=== PATIENT | female | born 1955 | race Caucasian/White ===

== ENCOUNTER 2023-03-07 10:01 | Outpatient (OUT) | payer MEDICARE, SELFPAY ==
--- NOTE | 2023-03-07 | MM_ITS ---
Patient: ANGELITA ADRIAN Exam Date: 03/07/2023 : 1955 Gender:F Ordering : Shaikh Andrzej Allan . Admission #: [id number] Family : Order #: [id number] CLICK HERE TO VIEW EXAM RADIOLOGY REPORT PROCEDURE: MM TOMOSYNTHESIS SCREENING BI COMPARISON: MG MAMM SCREEN 3D ALVA CAD, 07/18/2021. INDICATIONS: Screening Calculator Name NCI Breast Cancer Risk Assessment Tool 5 Year Breast Cancer Risk 1.20% Lifetime Breast Cancer Risk 3.90% Personal Breast Cancer No Personal Ovarian Cancer No Treatments None Family Cancers Grandmother-maternal with breast cancer at age ~63; Aunt-maternal with breast cancer at age ~31; Mother with ovarian cancer at age 27; Grandmother-paternal with colon? cancer at age ~68; Grandfather-paternal with lung cancer at age ~60; Father with lung cancer at age ~60. LOCATION: [facility] BREAST COMPOSITION: Heterogeneously dense,which may obscure small masses. FINDINGS: DIAGNOSTIC CATEGORY 2--BENIGN FINDING. NO CHANGE FROM COMPARISON. Scattered benign-appearing nodules are present. Scattered benign-appearing calcifications are present. Scattered benign-appearing lymph nodes are present. RIGHT BREAST: No significant suspicious finding. LEFT BREAST: No significant suspicious finding. RECOMMENDATIONS: ROUTINE MAMMOGRAM AND CLINICAL EVALUATION IN 12 MONTHS. PLEASE NOTE: A NORMAL MAMMOGRAM DOES NOT EXCLUDE THE POSSIBILITY OF BREAST CANCER. A CLINICALLY SUSPICIOUS PALPABLE LUMP SHOULD BE BIOPSIED. Dictated by: Tre Currie MD on 03/07/2023 at 10:47 Approved by: Tre Currie MD on 03/07/2023 at 10:48
== END 2023-03-07 10:02 | disposition home or self-care (01) ==
LOC: MAMMO 10:05
PROVIDERS: PCP Internal Medicine; Visit Provider Internal Medicine
DX: Z12.31 Encounter for screening mammogram for malignant neoplasm of breast (principal); Z80.3 Family history of malignant neoplasm of breast; Z80.41 Family history of malignant neoplasm of ovary; Z80.1 Family history of malignant neoplasm of trachea, bronchus and lung
CPT/HCPCS: 77063; 77067

== ENCOUNTER 2023-05-08 09:42 | Outpatient (OUT) | payer MEDICARE, SELFPAY ==
[2023-05-08 10:10] LABS: Basophils Absolute Auto 0.1 10^3/uL (0.0-0.1); Basophils Percent Auto 1.2 % (0.2-2.0); Eosinophils Absolute Auto 0.1 10^3/uL (0.0-0.7); Eosinophils Percent Auto 2.8 % (0.9-7.0); Hematocrit 37.6 % (36.0-48.0); Immature Granulocytes Abs Auto 0.01 10^3/uL (0.00-0.03); Immature Granulocytes Pct Auto 0.2 % (0.0-0.5); Lymphocytes Absolute Auto 1.2 10^3/uL (1.2-3.8); Lymphocytes Percent Auto 23.7 % (20.5-60.0); Mean Corpuscular HGB Conc 31.9 g/dL (29.9-35.2); Mean Corpuscular Hemoglobin 28.9 pg (26.7-34.0); Mean Corpuscular Volume 90.6 fL (81.0-99.0); Mean Platelet Volume 9.3 fL (9.5-13.5); Monocytes Absolute Auto 0.5 10^3/uL (0.3-0.8); Monocytes Percent Auto 10.3 % (1.7-12.0); Neutrophils Percent Auto 61.8 % (43.0-75.0); Platelet Count 281 10^3/uL (150-450); Red Blood Count 4.15 10^6/uL (4.20-5.40); Red Cell Distribution Width 13.7 % (11.0-15.0); White Blood Count 4.9 10^3/uL (4.0-11.0)
== END 2023-05-08 09:43 | disposition home or self-care (01) ==
LOC: LAB 09:46
PROVIDERS: PCP Internal Medicine
DX: H02.839 Dermatochalasis of unspecified eye, unspecified eyelid (principal)
CPT/HCPCS: 36415; 85025

== ENCOUNTER 2023-08-14 10:09 | Inpatient (IN) | payer MEDICARE, SELFPAY ==
[2023-08-14] VITALS (28 sets, daily range): BP systolic 119–155; BP diastolic 67–86; PULSE 86–157; RESP 18–32; TEMP 36.6–37.1; O2SAT 91–100; BMI 24.6
--- NOTE | 2023-08-14 10:22 | XR_ITS ---
[facility] [place] [id number] Patient Name: ANGELITA ADRIAN MRN: [id number] date: 1955 Sex: F Assigned Patient Location: ER Current Patient Location: ER Accession/Order Number: [id number] Exam Date: 08/14/2023 10:30 Report Date: 08/14/2023 10:54 At the request of: RUTH DUNCAN Procedure: XR chest 1V EXAM: XR chest 1V HISTORY: sob COMPARISON: Chest study dated 10/17/2022 TECHNIQUE: AP view of the chest was obtained with portable technique at 1026 hours. FINDINGS: Heart and mediastinal contours are unremarkable in appearance. Mild COPD. No acute infiltrate or consolidations are seen. No obvious pneumothorax. Slight convexity of the upper dorsal spine to the left and lower dorsal spine to the right. XR/XR chest 1V IMPRESSION: Mild COPD. No acute process seen in the chest. Electronically authenticated by: CHRISTIAN MCNULTY Date: 08/14/2023 10:54
--- NOTE | 2023-08-14 10:25 | ED.GENADUL1 ---
HPI - General Adult General Chief complaint: Shortness of Breath/Dyspnea Stated complaint: SHORTNESS OF BREATH/ FEVER Time Seen by Provider: 08/14/23 10:22 Source: patient Mode of arrival: Wheelchair History of Present Illness HPI narrative: Patient is a 68-year-old female who is presenting to the Emergency Room today with chief complaint of upper respiratory like infection, bronchitis, difficulty breathing since [place] time. Only sick contact the patient has had Was a grandson last week to have flulike symptoms. Patient says that she's never been admitted to the hospital for difficulty breathing, chronic obstructive pulmonary disease or emphysema. Patient quit smoking 4 years ago. Patient does see Dr. Patel for pulmonary history. Patient does not wear oxygen at day or at bedside. Patient does use a breathing treatment nebulizer machine daily at home. Patient had a breathing treatment prior to arrival. Patient was a home with her , very functional. Patient has no chest pain or tightness. Positive shortness of breath for the past 10 days with no relief. No dull pain, nausea vomiting. No edema. No other acute complaints. Patient is here with her . Patient is not getting better as an outpatient, she finally came in today because symptoms have not improved. . All systems are negative except as noted/marked. All systems reviewed and otherwise negative. . Nurses note and vital signs reviewed and patient is not hypoxic. Patient is paced on 2 L of nasal cannula for patient comfort. General: The patient appears Mild respiratory distress secondary to increased heart rate, shortness of breath. Patient is resting uncomfortably on cart. Patient is not toxic, lethargic, or listless Skin: Warm, dry, no pallor noted. There is no rash noted. No petechiae, purpura. Head: Normocephalic, atraumatic Eye: Normal conjunctiva, no drainage, EOMI. PERRL Ears, Nose, Mouth, and Throat: oral mucosa is moist. Nares patent. Mouth without vesicles. Cardiovascular: Regular Rate and Rhythm, no murmur, gallop, rub Respiratory: Patient is in no distress, no accessory muscle use, lungs are clear to auscultation, no wheezing, rales or rhonchi Back: non-tender, no CVA tenderness bilaterally to percussion. No CT LS midline pain GI: soft, no tenderness to palpation, no masses appreciated. No rebound, guarding, or rigidity noted. No flank pain bilateral, No distention Musculoskeletal: Patient has full range of motion of all of the extremities, no motor, sensory, or focal neurological deficits Neurological: A&O x3, normal speech Psychiatric: Cooperative Related Data Home Medications Medication Instructions Recorded Confirmed alendronate 70 mg tablet 70 mg PO .ONCE WEEKLY 08/14/23 08/14/23 amlodipine 5 mg tablet 5 mg PO QDAY 08/14/23 08/14/23 arformoterol 15 mcg/2 mL solution 15 mcg inhalation Q12H 08/14/23 08/14/23 for nebulization atorvastatin 40 mg tablet 40 mg PO BEDTIME 08/14/23 08/14/23 budesonide 0.5 mg/2 mL suspension 0.5 mg inhalation BID 08/14/23 08/14/23 for nebulization cholecalciferol (vitamin D3) 50 mcg PO DAILY 08/14/23 08/14/23 losartan 100 mg tablet 100 mg PO DAILY 08/14/23 08/14/23 magnesium 200 mg tablet 200 mg PO DAILY 08/14/23 08/14/23 meloxicam 7.5 mg tablet 7.5 mg PO DAILY 08/14/23 08/14/23 metoprolol tartrate 25 mg tablet 25 mg PO TID 08/14/23 08/14/23 multivitamin 1 tab PO DAILY 08/14/23 08/14/23 pantoprazole 40 mg tablet,delayed 40 mg PO DAILY 08/14/23 08/14/23 release potassium gluconate 595 mg (99 mg) 595 mg PO DAILY 08/14/23 08/14/23 tablet pramipexole 0.5 mg tablet 0.5 mg PO BEDTIME 08/14/23 08/14/23 revefenacin 175 mcg/3 mL solution 175 mcg inhalation DAILY 08/14/23 08/14/23 for nebulization (Yupelri) Allergies Allergy/AdvReac Type Severity Reaction Status Date / Time codeine AdvReac Severe Nausea Verified 08/14/23 10:22 PFSH PFSH Social History Smoking status: Former smoker Exam Constitutional Vital Signs, click to edit/add: Last Vital Signs Temp 98.7 F 08/14/23 10:16 Pulse 156 H 08/14/23 10:41 Resp 31 H 08/14/23 10:41 BP 145/79 H 08/14/23 12:09 Pulse Ox 98 08/14/23 10:41 O2 Del Method Room Air 08/14/23 10:41 Course Vital Signs Vital signs: Vital Signs Temperature 98.7 F 08/14/23 10:16 Pulse Rate 145 H 08/14/23 10:16 Respiratory Rate 32 H 08/14/23 10:16 Blood Pressure 119/84 08/14/23 10:16 Pulse Oximetry 95 08/14/23 10:16 Oxygen Delivery Method Room Air 08/14/23 10:16 Temperature 98.7 F 08/14/23 10:16 Pulse Rate 156 H 08/14/23 10:41 Respiratory Rate 31 H 08/14/23 10:41 Blood Pressure 145/79 H 08/14/23 12:09 Pulse Oximetry 98 08/14/23 10:41 Oxygen Delivery Method Room Air 08/14/23 10:41 Medical Decision Making MDM Narrative Medical decision making narrative: Patient initially presented with a heart rate in the 120s, patient had ordered 2 DuoNeb breathing treatments and her heart rate went into the 150s. Patient has been given IV fluids. Patient's heart rate was improving into the 130s, patient was given a small dose of Cardizem bolus at admission to see their help with a heart rate somewhat. Patient feels slightly better after breathing treatments but not significant. Patient also had a prophylactic antibiotic of Levaquin started along with giving patient IV magnesium and IV fluids. Patient will be admitted MedSurg telemetry to Dr. Pinto. Dr. Pinto is aware of the heart rate is well. Patient does see Dr. Patel for pulmonology in the past. Patient agrees with admission. Acute concerns at this time. 1210 Case was discussed again with Dr. Pinto. Lactic acid will be added along with 2 blood cultures and additional IV fluids. Critical care time 31 minutes exclusive from separate billable procedures that were performed. The following was considered in the determination of critical care but not limited to the level of medical decision making, intensive cardiac and/or respiratory monitoring, frequent vital sign monitoring, evaluation of laboratory studies, evaluation of radiographic studies, oxygen monitoring, and constant monitoring and speaking to family at bedside Lab Data Lab results reviewed: Yes I reviewed the patient's lab results Labs: Lab Results 08/14/23 Range/Units 10:23 WBC 10.8 (4.0-11.0) 10^3/uL RBC 4.07 L (4.20-5.40) 10^6/uL Hgb 11.8 L (12.0-16.0) g/dL Hct 36.8 (36.0-48.0) % MCV 90.4 (81.0-99.0) fL MCH 29.0 (26.7-34.0) pg MCHC 32.1 (29.9-35.2) g/dL RDW 13.4 (11.0-15.0) % Plt Count 342 (150-450) 10^3/uL MPV 9.9 (9.5-13.5) fL Neut % (Auto) 78.5 H (43.0-75.0) % Lymph % (Auto) 10.6 L (20.5-60.0) % [place] % (Auto) 7.8 (1.7-12.0) % Eos % (Auto) 2.1 (0.9-7.0) % Baso % (Auto) 0.6 (0.2-2.0) % Neut # (Auto) 8.5 H (1.4-6.5) 10^3/uL Lymph # (Auto) 1.1 L (1.2-3.8) 10^3/uL [place] # (Auto) 0.8 (0.3-0.8) 10^3/uL Eos # (Auto) 0.2 (0.0-0.7) 10^3/uL Baso # (Auto) 0.1 (0.0-0.1) 10^3/uL Abs Immat Gran (auto) 0.04 H (0.00-0.03) 10^3/uL Imm/Tot Granulo (auto) 0.4 (0.0-0.5) % VBG pH 7.425 (7.330-7.430) VBG pCO2 40.4 (40.0-52.0) mmHg Sodium 137 (136-145) mmol/L Potassium 4.0 (3.5-5.1) mmol/L Chloride 101 (98-107) mmol/L Carbon Dioxide 24.5 (21.0-32.0) mmol/L Anion Gap 15.5 BUN 14.0 (7.0-18.0) mg/dL Creatinine 0.91 (0.55-1.02) mg/dL Est GFR ( Amer) >60 (>=60) Est GFR (Non-Af Amer) >60 (>=60) BUN/Creatinine Ratio 15.4 Glucose 132 H (74-106) mg/dL Calcium 9.5 (8.5-10.1) mg/dL Total Bilirubin 0.3 (0.2-1.0) mg/dL AST 17 (15-37) U/L ALT 32 (14-59) U/L Alkaline Phosphatase 90 (46-116) U/L Troponin I High Sens 4.1 (4.0-51.3) pg/mL NT-Pro-B Natriuret Pep 295.0 (<=900.0) pg/mL Total Protein 7.4 (6.4-8.2) g/dL Albumin 3.0 L (3.4-5.0) g/dL Globulin 4.4 g/dL Albumin/Globulin Ratio 0.7 ECG Data Attestation: I personally reviewed and interpreted this ECG as follows: (EKG #1. Sinus tachycardia at 129, artifact noted. Rhythm appears to be regular. No acute ST elevation, QTC of 366.) Interpretation: EKG #2. Tachycardic rhythm at 163 beats a minute. Possible multifocal actual tachycardia secondary to chronic obstructive pulmonary disease, possible sinus tachycardia versus atrial fibrillation/atrial flutter, QTC of 434. Artifact noted. No acute ST elevation Pacemaker model: EKG #2. Tachycardic rhytthm, 63 beats a minute. Possible multifocal atrial Discharge Plan Discharge Chief Complaint: Shortness of Breath/Dyspnea Clinical Impression: URI (upper respiratory infection), Dyspnea, Tachycardia, COPD exacerbation Patient Disposition: Admitted as Observation Condition: Fair
[2023-08-14] MEDS: IPRATROPIUM/ALBUTEROL SULFATE 3 ML AMPUL.NEB 6 ML IH (10:30)
--- NOTE | 2023-08-14 10:43 | PC.NURSE ---
POST RESPIRATORY TREATMENT
[2023-08-14 10:47] LABS: PCO2 VBG 40.4 mmHg (40.0-52.0); pH VBG 7.425 (7.330-7.430)
[2023-08-14 10:49] LABS: Basophils Absolute Auto 0.1 10^3/uL (0.0-0.1); Basophils Percent Auto 0.6 % (0.2-2.0); Eosinophils Absolute Auto 0.2 10^3/uL (0.0-0.7); Eosinophils Percent Auto 2.1 % (0.9-7.0); Hematocrit 36.8 % (36.0-48.0); Hemoglobin 11.8 g/dL (12.0-16.0); Immature Granulocytes Abs Auto 0.04 10^3/uL (0.00-0.03); Immature Granulocytes Pct Auto 0.4 % (0.0-0.5); Lymphocytes Absolute Auto 1.1 10^3/uL (1.2-3.8); Lymphocytes Percent Auto 10.6 % (20.5-60.0); Mean Corpuscular HGB Conc 32.1 g/dL (29.9-35.2); Mean Corpuscular Volume 90.4 fL (81.0-99.0); Mean Platelet Volume 9.9 fL (9.5-13.5); Monocytes Absolute Auto 0.8 10^3/uL (0.3-0.8); Monocytes Percent Auto 7.8 % (1.7-12.0); Neutrophils Absolute Auto 8.5 10^3/uL (1.4-6.5); Neutrophils Percent Auto 78.5 % (43.0-75.0); Platelet Count 342 10^3/uL (150-450); Red Blood Count 4.07 10^6/uL (4.20-5.40); Red Cell Distribution Width 13.4 % (11.0-15.0); White Blood Count 10.8 10^3/uL (4.0-11.0)
[2023-08-14] MEDS: METHYLPREDNISOLONE SOD SUCC PF 125 MG/2 ML VIAL IVP (10:52)
[2023-08-14] MEDS: 0.9 % SODIUM CHLORIDE 1,000 ML 1000 ML IV ×2 (10:52→12:34)
[2023-08-14 11:15] LABS: Alanine Aminotransferase 32 U/L (14-59); Albumin Globulin Ratio 0.7; Alkaline Phosphatase 90 U/L (46-116); Anion Gap 15.5; Aspartate Amino Transferase 17 U/L (15-37); BUN Creatinine Ratio 15.4; Bilirubin Total 0.3 mg/dL (0.2-1.0); Calcium 9.5 mg/dL (8.5-10.1); Carbon Dioxide 24.5 mmol/L (21.0-32.0); Chloride 101 mmol/L (98-107); Estimated GFR (African America >60 (>=60); Estimated GFR (Non-African Ame >60 (>=60); Globulin 4.4 g/dL; Glucose 132 mg/dL (74-106); Sodium 137 mmol/L (136-145); Total Protein 7.4 g/dL (6.4-8.2); Troponin I High Sensitivity 4.1 pg/mL (4.0-51.3)
[2023-08-14] MEDS: MAGNESIUM SULFATE IN WATER 2 GM/50 ML PREMIX IV (11:58)
[2023-08-14] MEDS: LEVOFLOXACIN IN DEXTROSE 5 % 750 MG/150 ML IV.SOLN 100 MG IV (11:58)
[2023-08-14] MEDS: DILTIAZEM HCL 25 MG/5 ML VIAL 10 MG IV (12:20)
[2023-08-14 12:40] LABS: Adenovirus NOT DETECTED (NOT DETECTE); Bordetella parapertussis NOT DETECTED (NOT DETECTE); Coronavirus 229E NOT DETECTED (NOT DETECTE); Coronavirus HKU1 NOT DETECTED (NOT DETECTE); Coronavirus NL63 NOT DETECTED (NOT DETECTE); Coronavirus OC43 NOT DETECTED (NOT DETECTE); Human Metapneumovirus NOT DETECTED (NOT DETECTE); Human Rhinovirus/Enterovirus NOT DETECTED (NOT DETECTE); Influenza A NOT DETECTED (NOT DETECTE); Influenza B NOT DETECTED (NOT DETECTE); Mycoplasma pneumoniae NOT DETECTED (NOT DETECTE); Parainfluenza Virus 1 NOT DETECTED (NOT DETECTE); Parainfluenza Virus 2 NOT DETECTED (NOT DETECTE); Parainfluenza Virus 3 NOT DETECTED (NOT DETECTE); Parainfluenza Virus 4 NOT DETECTED (NOT DETECTE); Respiratory Syncytial Virus NOT DETECTED (NOT DETECTE)
[2023-08-14 13:04] LABS: Lactate/Lactic Acid 2.6 mmol/L (0.4-2.0)
[2023-08-14 13:55] LABS: SARS-CoV-2 DETECTED (NOT DETECTE)
--- NOTE | 2023-08-14 14:05 | ECG_ITS ---
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
[2023-08-14] MEDS: ENOXAPARIN SODIUM 40 MG/0.4 ML SYRINGE SUBQ (15:01)
[2023-08-14] MEDS: METOPROLOL TARTRATE 25 MG TABLET PO ×2 (15:02→21:10)
[2023-08-14] MEDS: LACTATED RINGER'S SOLUTION 1,000 ML 100 ML IV ×2 (15:02→23:21)
--- NOTE | 2023-08-14 15:15 | P.HP_ITS ---
<Statement entered by Emerson Pinto MD - 08/14/23 19:05> Patient not seen or examined, agree with assessment and plan below. Presented with severe SOB and Covid positive. Noted tachycardia and dehydration. Started steroids, paxlovid, and antibiotics. Started IV fluids. Resume home medication. Diagnosis: 1. COPD exacerbation 2. Covid-19 3. Tachycardia 4. Lactic a cidosis 5. Dehydration 6. HTN H&P: HPI History of Present Illness Chief complaint: SHORTNESS OF BREATH/ FEVER Narrative: 08/14/23 8541 This is a 68-year-old female patient with a past medical history as outlined below including COPD following with pulmonology, hypertension, hyperlipidemia, and recent complaints of depression and anxiety; who presented to the ED this morning complaining of worsening shortness of breath. She notes onset of symptoms 2 days after [place]. She complains of severe fatigue, low-grade fevers, and coughing up yellow sputum. Over the last 24 hours her shortness of breath has become so severe that she was having difficulty talking or doing minimal activity and she presented to the ED for further evaluation. Workup in the ED revealed lactic acidosis (2.6) and mild hyperglycemia (132). A chest x-ray was negative for acute cardiopulmonary process. She was noted to be tachycardic in the ED and this worsened after receiving albuterol breathing treatments. She was given IVP diltiazem for tachycardia sustained above 130 and admitted to the ICU under the hospitalist service. At the time of my exam the patient is resting comfortably in bed. She is without significant dyspnea at rest but was only able to complete 5 word sentences and becomes increasingly dyspneic with prolonged conversation or with minimal activity. Her tachycardia is improved but persists above 100. There was no workup in the ED for PE so we will add a D-dimer to her workup and if elevated will obtain a CTA of the chest to rule out PE. We will also convert her breathing treatments to lev albuterol to reduce tachycardia inducement. ADDENDUM 1635: D-dimer elevated at 0.90. CTA chest ordered to r/o PE. Start empiric therapeutic lovenox now pending CTA results - high clinical suspicion of PE. Review of Systems 2 ROS Status of ROS 10 or more systems reviewed and unremark able except as noted in history and below [facility] Medical History (Updated 08/14/23 @ 16:50 by Rachel Rankin NP) Restless legs ?G25.81 - Restless legs syndrome (ICD-10) Osteoporosis ?M81.0 - Age-related osteoporosis without current pathological fracture (ICD- 10) Hyperlipidemia ?E78.5 - Hyperlipidemia, unspecified (ICD-10) HTN (hypertension) ?I10 - Essential (primary) hypertension (ICD-10) COPD (chronic obstructive pulmonary disease) ?J44.9 - Chronic obstructive pulmonary disease, unspecified (ICD-10) 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 - Disease of appendix, unspecified (ICD-10) Normal colonoscopy Hernia of abdominal wall ?K43.9 - Ventral hernia without obstruction or gangrene (ICD-10) Cataract ?H26.9 - Unspecified cataract (ICD-10) Surgical History (Updated 08/14/23 @ 13:21 by Antoinette Ellis) History of partial hysterectomy ?Z90.711 - Acquired absence of uterus with remaining cervical stump (ICD-10) Social History (Updated 08/14/23 @ 13:22 by Antoinette Ellis) Smoking status: Former smoker Non-prescribed substance use: denies use Previous occupational history: retired Highest level of school completed/degree received: 9th grade Meds Home Medications and Allergies Home Medications Medication Instructions Recorded Confirmed Type alendronate 70 mg tablet 70 mg PO .ONCE WEEKLY 08/14/23 08/14/23 History amlodipine 5 mg tablet 5 mg PO QDAY 08/14/23 08/14/23 History arformoterol 15 mcg/2 mL solution 15 mcg inhalation Q12H 08/14/23 08/14/23 History for nebulization atorvastatin 40 mg tablet 40 mg PO BEDTIME 08/14/23 08/14/23 History budesonide 0.5 mg/2 mL suspension 0.5 mg inhalation BID 08/14/23 08/14/23 History for nebulization cholecalciferol (vitamin D3) 50 mcg PO DAILY 08/14/23 08/14/23 History losartan 100 mg tablet 100 mg PO DAILY 08/14/23 08/14/23 History magnesium 200 mg tablet 200 mg PO DAILY 08/14/23 08/14/23 History meloxicam 7.5 mg tablet 7.5 mg PO DAILY 08/14/23 08/14/23 History metoprolol tartrate 25 mg tablet 25 mg PO TID 08/14/23 08/14/23 History multivitamin 1 tab PO DAILY 08/14/23 08/14/23 History pantoprazole 40 mg tablet,delayed 40 mg PO DAILY 08/14/23 08/14/23 History release potassium gluconate 595 mg (99 mg) 595 mg PO DAILY 08/14/23 08/14/23 History tablet pramipexole 0.5 mg tablet 0.5 mg PO BEDTIME 08/14/23 08/14/23 History revefenacin 175 mcg/3 mL solution 175 mcg inhalation DAILY 08/14/23 08/14/23 History for nebulization (Micki) Allergies Allergy/AdvReac Type Severity Reaction Status Date / Time codeine AdvReac Severe Nausea Verified 08/14/23 10:22 Exam Constitutional Vital Signs, click to edit/add: Last Vital Signs Temp 98.2 F 08/14/23 12:29 Pulse 126 H 08/14/23 13:53 Resp 26 H 08/14/23 12:29 BP 155/67 H 08/14/23 13:53 Pulse Ox 100 08/14/23 13:53 O2 Del Method Room Air 08/14/23 15:12 O2 Flow Rate 2 08/14/23 13:53 Common normals: no apparent distress, oriented x3, alert and well nourished General appearance: cooperative Orientation/consciousness: Yes awake HENUT Common normals: normocephalic, head/scalp atraumatic, hearing grossly normal bilaterally, external nose normal and moist oral mucous membranes Eye Common normals: PERRL, EOMs intact bilaterally, conjunctivae normal and no scleral icterus Alignment: alignment normal Eyelid: eyelids normal Neck & C-Spine Common normals: full ROM, supple and no JVD Chest Common normals: inspection of chest normal Chest: symmetrical chest wall rise Respiratory Common normals: no retractions, no use of accessory muscles and clear to auscultation bilaterally Effort & inspection: uses accessory muscles (mild); not able to speak in complete sentences (5 word short sentences) Auscultation: wheezes (EE wheezes) and diminished lung sounds (Very tight throughout) Cardio Common normals: no JVD, regular rhythm, S1 normal heart sound, S2 normal heart sound, no gallops, no clicks, no murmurs, no rub and peripheral pulses 2+ throughout Rate: tachycardic (100-115 during my exam) GI Common normals: Normal to inspection, nondistended, normoactive bowel sounds present, soft to palpation, non-tender, no hepatosplenomegaly, no masses and no bruits Bladder/kidney exam: bladder normal to palpation Back & Pelvis Common normals: thoracic and lumbar spine normal to inspection Extremity Common normals: normal capillary refill and no pedal edema General: normal exam except as noted; no clubbing and no cyanosis Neuro Allison Coma Scale: GCS not evaluated Common normals: CN's II-XII intact bilaterally, moves all extremities, no focal motor deficits and no sensory deficits noted Speech: speech normal Psych Common normals: mental status grossly normal, thought process normal, affect normal and activity/motor behavior normal Results Labs Labs: Short CBC 08/14/23 Range/Units 10:23 WBC 10.8 (4.0-11.0) 10^3/uL Hgb 11.8 L (12.0-16.0) g/dL Hct 36.8 (36.0-48.0) % Plt Count 342 (150-450) 10^3/uL BMP 08/14/23 10:23 Sodium 137 Potassium 4.0 Chloride 101 Carbon Dioxide 24.5 BUN 14.0 Creatinine 0.91 Glucose 132 H Calcium 9.5 Liver Function 08/14/23 Range/Units 10:23 Total Bilirubin 0.3 (0.2-1.0) mg/dL AST 17 (15-37) U/L ALT 32 (14-59) U/L Alkaline Phosphatase 90 (46-116) U/L Albumin 3.0 L (3.4-5.0) g/dL ABG ABG results: 08/14/23 10:23 VBG pH 7.425 VBG pCO2 40.4 Pulse Oximetry Attestation: I have reviewed the pertinent pulse oximetry results. Imaging Chest x-ray: Attestation: I have reviewed the pertinent imaging results. Radiologist's impression: IMPRESSION: Mild COPD. No acute process seen in the chest. Assessment and Plan Assessment and Plan (1) COPD exacerbation: Assessment and Plan: ACUTE * Adm inpatient * Xopenex/ipratropium scheduled q4h, Pulmicort nebs BID, prn levalbuterol nebs * Solumedrol 125 x 1 in ED, then 40 mg q6h * Guaifenesin/OPEP for sputum mobilization * Levaquin for suspected underlying bronchitis, possible pneumonitis * O2 to keep sats above 90%. * Sats drop precipitously w/ minimal activity, although stable at rest * CBC, CMP daily (2) COVID-19: Assessment and Plan: ACUTE * Paxlovid BID x 5 days * Supportive care - see COPD exacerbation (3) Tachycardia: Assessment and Plan: ACUTE * HR sustained above 130 in the ED - Sinus rhythm * Suspect multifactorial - dyspnea/hypoxia, anxiety, missed BB doses, albuterol doses. R/o PE * D-dimer now. Follow up CTA chest pending results * Continue home metoprolol tartrate TID - Pt missed a dose in the ED * PRN Lopressor IVP for HR sustained above 120 * HR improved control on arrival to ICU * Low threshold to give Diltiazem IVP or gtt pending clinical course/response to above measures * Sub Levalbuterol for albuterol in breathing treatments * Tele monitoring (4) Dehydration: Assessment and Plan: ACUTE * Clinical dehydration on exam * LR at 100 ml/hr * CMP in AM (5) Lactic acidosis: Assessment and Plan: ACUTE * Elevated lactic acid in ED - low clinical suspicion of sepsis. * suspect 2/2 hypoxia/acute COPD exacerbation * Repeat in 4 hrs * IVF as above (6) Anxiety and depression: Assessment and Plan: CHRONIC * Defer to outpatient management for depression. * PCP reportedly starting pt on antidepressant but not yet called in to pharmacy. * PRN Ativan PO for anxiety/sleeplessness during acute hospitalization (7) HTN (hypertension): Assessment and Plan: CHRONIC * Continue home amlodipine, lopressor, losartan (8) Hyperlipidemia: Assessment and Plan: CHRONIC * Hold home statin during acute hospitalization. Resume at d/c (9) Restless legs: Assessment and Plan: CHRONIC * Continue home pramipexole
[2023-08-14 16:44] LABS: Lactate/Lactic Acid 3.2 mmol/L (0.4-2.0)
[2023-08-14] MEDS: GUAIFENESIN 600 MG TAB.ER.12H PO (16:57)
[2023-08-14] MEDS: METHYLPREDNISOLONE SOD SUCC PF 40 MG/ML VIAL IVP ×2 (16:57→23:21)
--- NOTE | 2023-08-14 17:18 | CT_ITS ---
[address] [address] Patient Name: ANGELITA ADRIAN MRN: [id number] date: 1955 Sex: F Assigned Patient Location: ICU Current Patient Location: ICU Accession/Order Number: [id number] Exam Date: 08/14/2023 17:08 Report Date: 08/14/2023 18:11 At the request of: CALIN CEDEÑO Procedure: CT angio chest EXAM: CT angio chest HISTORY: Hypoxia, tachycardia, elevated ddimer. r/o pe COMPARISON: 08/16/2022 TECHNIQUE: CT chest with intravenous contrast was performed with timing for the evaluation for pulmonary arteries. Multiplanar reformats were performed. MIP (maximum intensity projection) images or 3D post processing was performed. Dose reduction techniques were achieved by using automated exposure control and/or adjustment of mA and/or kV according to patient size and/or use of iterative reconstruction technique. FINDINGS: Lungs: There is bilateral centrilobular emphysema. There are a few tree-in-bud opacities noted in the right lower and middle lobe, representing aspiration pneumonia or acute bronchiolitis. No pneumothorax or effusion. Airways: Normal. Mediastinum: No adenopathy. Aorta: No aneurysm. Cardiac: Normal size. No pericardial effusion. Pulmonary vasculature: Diagnostic opacification of pulmonary arteries without evidence of pulmonary embolus. Normal morphology. Bones: No acute bony abnormality. Axilla: No adenopathy. Thyroid gland: No abnormality demonstrated on provided imaging. Soft tissues: Unremarkable. Upper abdomen: Unremarkable. Additional findings: None. CT/CT angio chest IMPRESSION: No evidence of pulmonary embolus. Few tree-in-bud opacities noted in the right lower and middle lobe, representing aspiration pneumonia or acute bronchiolitis. Electronically authenticated by: JAMILA MAURICIO Date: 08/14/2023 18:11
[2023-08-14 17:49] LABS: PROCALCITONIN <0.05 ng/mL (0.00-0.50)
[2023-08-14] MEDS: PRAMIPEXOLE 1 MG TABLET 0.5 MG PO (19:14)
[2023-08-14] MEDS: LEVALBUTEROL HCL 0.63 MG/3 ML VIAL.NEB IH ×2 (19:27→23:15)
[2023-08-14] MEDS: IPRATROPIUM BROMIDE 0.5 MG/2.5 ML VIAL.NEB IH ×2 (19:27→23:15)
[2023-08-14 20:04] LABS: Lactate/Lactic Acid 2.4 mmol/L (0.4-2.0)
[2023-08-14] MEDS: ENOXAPARIN SODIUM 60 MG/0.6 ML SYRINGE SUBQ (22:21)
[2023-08-14] MEDS: BUDESONIDE 0.5 MG/2 ML AMPULE NEB IH (23:15)
[2023-08-14] MEDS: LORAZEPAM 0.5 MG TABLET PO (23:28)
[2023-08-15] VITALS (70 sets, daily range): BP systolic 136–169; BP diastolic 74–94; PULSE 84–141; RESP 1–30; TEMP 36.2–36.9; O2SAT 90–99; BMI 24.6
[2023-08-15] MEDS: METOPROLOL TARTRATE 5 MG/5 ML VIAL IVP ×2 (03:25→08:15)
[2023-08-15] MEDS: IPRATROPIUM BROMIDE 0.5 MG/2.5 ML VIAL.NEB IH ×6 (03:42→23:44)
[2023-08-15] MEDS: LEVALBUTEROL HCL 0.63 MG/3 ML VIAL.NEB IH ×6 (03:43→23:44)
--- NOTE | 2023-08-15 04:00 | XR_ITS ---
[place] [id number] Patient Name: ANGELITA ADRIAN MRN: [id number] date: 1955 Sex: F Assigned Patient Location: ICU Current Patient Location: ICU Accession/Order Number: [id number] Exam Date: 08/15/2023 04:27 Report Date: 08/15/2023 07:26 At the request of: CALIN CEDEÑO Procedure: XR chest 1V EXAM: XR chest 1V HISTORY: SOB COMPARISON: 08/14/2023 TECHNIQUE: AP portable FINDINGS: LUNGS: No significant pulmonary parenchymal abnormalities. Mild hyperinflation VASCULATURE: No increased pulmonary vasculature. PLEURA: No pneumothorax, effusion, or pleural thickening. CARDIAC: No cardiomegaly or cardiac silhouette abnormality. MEDIASTINUM: No visible mass or adenopathy. Aortic atherosclerosis BONES: No fracture or visible bone lesion. OTHER: Negative. XR/XR chest 1V IMPRESSION: No acute cardiopulmonary process Electronically authenticated by: FRANCIS JAEGER Date: 08/15/2023 07:26
[2023-08-15] MEDS: METHYLPREDNISOLONE SOD SUCC PF 40 MG/ML VIAL IVP ×4 (04:18→22:25)
[2023-08-15 04:54] LABS: Basophils Percent Auto 0.1 % (0.2-2.0); Hematocrit 33.6 % (36.0-48.0); Hemoglobin 10.8 g/dL (12.0-16.0); Immature Granulocytes Abs Auto 0.05 10^3/uL (0.00-0.03); Immature Granulocytes Pct Auto 0.6 % (0.0-0.5); Lymphocytes Absolute Auto 0.5 10^3/uL (1.2-3.8); Lymphocytes Percent Auto 5.8 % (20.5-60.0); Mean Corpuscular HGB Conc 32.1 g/dL (29.9-35.2); Mean Corpuscular Hemoglobin 28.8 pg (26.7-34.0); Mean Corpuscular Volume 89.6 fL (81.0-99.0); Monocytes Absolute Auto 0.2 10^3/uL (0.3-0.8); Monocytes Percent Auto 2.1 % (1.7-12.0); Neutrophils Percent Auto 91.4 % (43.0-75.0); Platelet Count 318 10^3/uL (150-450); Red Blood Count 3.75 10^6/uL (4.20-5.40); Red Cell Distribution Width 13.4 % (11.0-15.0); White Blood Count 8.8 10^3/uL (4.0-11.0)
[2023-08-15] MEDS: METOPROLOL TARTRATE 25 MG TABLET PO ×3 (05:07→21:15)
[2023-08-15 05:10] LABS: Alanine Aminotransferase 29 U/L (14-59); Albumin Globulin Ratio 0.6; Albumin Level 2.8 g/dL (3.4-5.0); Alkaline Phosphatase 89 U/L (46-116); Anion Gap 14.5; Aspartate Amino Transferase 13 U/L (15-37); BUN Creatinine Ratio 13.6; Bilirubin Total 0.3 mg/dL (0.2-1.0); Calcium 9.7 mg/dL (8.5-10.1); Carbon Dioxide 25.1 mmol/L (21.0-32.0); Chloride 103 mmol/L (98-107); Estimated GFR (African America >60 (>=60); Estimated GFR (Non-African Ame >60 (>=60); Globulin 4.5 g/dL; Glucose 175 mg/dL (74-106); Potassium 3.6 mmol/L (3.5-5.1); Sodium 139 mmol/L (136-145); Total Protein 7.3 g/dL (6.4-8.2)
[2023-08-15 05:27] LABS: Lactate/Lactic Acid 2.5 mmol/L (0.4-2.0)
[2023-08-15] MEDS: OMEPRAZOLE 40 MG CAPSULE.DR PO ×2 (08:14→21:15)
[2023-08-15] MEDS: ENOXAPARIN SODIUM 40 MG/0.4 ML SYRINGE SUBQ (08:14)
[2023-08-15] MEDS: MAGNESIUM OXIDE 400 MG TABLET PO (08:14)
[2023-08-15] MEDS: LOSARTAN POTASSIUM 50 MG TABLET 100 MG PO (08:14)
[2023-08-15] MEDS: GUAIFENESIN 600 MG TAB.ER.12H PO ×2 (08:14→21:15)
[2023-08-15] MEDS: MELOXICAM 7.5 MG TABLET PO (08:14)
[2023-08-15] MEDS: AMLODIPINE BESYLATE 5 MG TABLET PO (08:15)
--- NOTE | 2023-08-15 09:56 | CM.NOTE ---
Rounding with Dr. Pinto. Discussed increased heartrate with patient and possible change in medications. Noted harsh cough at this time. No anticipated discharge today.
--- NOTE | 2023-08-15 11:43 | PM.PLCN ---
History of Present Illness History of Present Illness Consult date: 08/14/23 Requesting physician: Emerson Pinto Reason for consult: COPD Chief complaint: SHORTNESS OF BREATH/ FEVER Narrative: 68yo female, whom I follow outpatient for COPD, presented to [facility] ER yesterday with >1 week duration of URI symptoms. She was around a grandchild with flu-like symptoms and another ill [id number]. She tested positive for COVID-19, though she was previously vaccinated and already had COVID-19 once. Oxygenation was okay, but she had SVT in the ER. She was transferred to the ICU for better rate-control. Currently, she states her breathing is doing okay and does not feel that bad. She would like to go home. However, her HR remained in the 30's when I evaluated her this morning. Review of Systems ROS Status of ROS 10 or more systems reviewed and unremarkable except as noted in history and below Constitutional Reports: fatigue Respiratory Reports: shortness of breath, cough and wheezing; Denies: pain on inspiration or coughing up blood [facility] Medical History (Updated 08/15/23 @ 08:50 by Emerson Pinto MD) Restless legs ?G25.81 - Restless legs syndrome (ICD-10) Osteoporosis ?M81.0 - Age-related osteoporosis without current pathological fracture (ICD-10) Hyperlipidemia ?E78.5 - Hyperlipidemia, unspecified (ICD-10) HTN (hypertension) ?I10 - Essential (primary) hypertension (ICD-10) COPD (chronic obstructive pulmonary disease) ?J44.9 - Chronic obstructive pulmonary disease, unspecified (ICD-10) 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 - Disease of appendix, unspecified (ICD-10) Normal colonoscopy Hernia of abdominal wall ?K43.9 - Ventral hernia without obstruction or gangrene (ICD-10) Cataract ?H26.9 - Unspecified cataract (ICD-10) Surgical History (Updated 08/14/23 @ 13:21 by Antoinette Ellis) History of partial hysterectomy ?Z90.711 - Acquired absence of uterus with remaining cervical stump (ICD-10) Social History (Updated 08/14/23 @ 13:22 by Antoinette Ellis) Smoking status: Former smoker Non-prescribed substance use: denies use Previous occupational history: retired Highest level of school completed/degree received: 9th grade Meds Home Medications and Allergies Home Medications Medication Instructions Recorded Confirmed Type alendronate 70 mg tablet 70 mg PO .ONCE WEEKLY 08/14/23 08/14/23 History amlodipine 5 mg tablet 5 mg PO QDAY 08/14/23 08/14/23 History arformoterol 15 mcg/2 mL solution 15 mcg inhalation Q12H 08/14/23 08/14/23 History for nebulization atorvastatin 40 mg tablet 40 mg PO BEDTIME 08/14/23 08/14/23 History budesonide 0.5 mg/2 mL suspension 0.5 mg inhalation BID 08/14/23 08/14/23 History for nebulization cholecalciferol (vitamin D3) 50 mcg PO DAILY 08/14/23 08/14/23 History losartan 100 mg tablet 100 mg PO DAILY 08/14/23 08/14/23 History magnesium 200 mg tablet 200 mg PO DAILY 08/14/23 08/14/23 History meloxicam 7.5 mg tablet 7.5 mg PO DAILY 08/14/23 08/14/23 History metoprolol tartrate 25 mg tablet 25 mg PO TID 08/14/23 08/14/23 History multivitamin 1 tab PO DAILY 08/14/23 08/14/23 History pantoprazole 40 mg tablet,delayed 40 mg PO DAILY 08/14/23 08/14/23 History release potassium gluconate 595 mg (99 mg) 595 mg PO DAILY 08/14/23 08/14/23 History tablet pramipexole 0.5 mg tablet 0.5 mg PO BEDTIME 08/14/23 08/14/23 History revefenacin 175 mcg/3 mL solution 175 mcg inhalation DAILY 08/14/23 08/14/23 History for nebulization (Micki) Allergies Allergy/AdvReac Type Severity Reaction Status Date / Time codeine AdvReac Severe Nausea Verified 08/14/23 10:22 Exam Constitutional Vital Signs, click to edit/add: Last Vital Signs Temp 98.5 F 08/15/23 03:27 Pulse 110 H 08/15/23 11:00 Resp 20 08/15/23 08:50 BP 169/94 H 08/15/23 03:27 Pulse Ox 95 08/15/23 08:50 O2 Del Method Room Air 08/15/23 07:15 O2 Flow Rate 2 08/14/23 13:53 Documenting provider has reviewed patient's vital signs: yes Common normals: no apparent distress HENMT Other: Mallampati II. No candidiasis or erythema. Chest Common normals: inspection of chest normal Chest: symmetrical chest wall rise Respiratory Other: Expiratory wheezes throughout (had wheezing at prior outpatient visit with me on 05/03/2023). Mild crackles right lung. Cardio Rate: tachycardic (130's) Rhythm: regular rhythm GI Inspection: normal to inspection Extremity Common normals: no clubbing, cyanosis or edema Neuro Motor exam: no tremor noted and no fasciculations Psych Appearance: grossly normal Attitude: calm and engaged Thought process: normal thought process Thought content: normal thought content Results Laboratory Findings ABG, PT/INR, D-dimer: PT/INR, D-dimer D-Dimer 0.90 mg/L FEU (<=0.59) H* 08/14/23 15:54 Abnormal lab findings: Abnormal Labs 08/14/23 08/14/23 08/14/23 10:23 12:30 12:35 RBC 4.07 L Hgb 11.8 L Hct Neut % (Auto) 78.5 H Lymph % (Auto) 10.6 L Eos % (Auto) Baso % (Auto) Neut # (Auto) 8.5 H Lymph # (Auto) 1.1 L [place] # (Auto) Abs Immat Gran (auto) 0.04 H Imm/Tot Granulo (auto) D-Dimer Glucose 132 H Lactate 2.6 H* AST Albumin 3.0 L SARS-CoV-2 (PCR) Detected A 08/14/23 08/14/23 08/15/23 15:54 19:24 04:16 RBC 3.75 L Hgb 10.8 L Hct 33.6 L Neut % (Auto) 91.4 H Lymph % (Auto) 5.8 L Eos % (Auto) 0.0 L Baso % (Auto) 0.1 L Neut # (Auto) 8.0 H Lymph # (Auto) 0.5 L [place] # (Auto) 0.2 L Abs Immat Gran (auto) 0.05 H Imm/Tot Granulo (auto) 0.6 H D-Dimer 0.90 H* Glucose 175 H Lactate 3.2 H* 2.4 H* 2.5 H* AST 13 L Albumin 2.8 L SARS-CoV-2 (PCR) Diagnostic Findings Chest x-ray: report reviewed CT scan - chest: report reviewed Assessment and Plan Assessment and Plan (1) COVID-19: Assessment and Plan: 1. Acute viral pneumonia secondary to COVID-19. From a pulmonary standpoint, she is doing fairly well. No noted hypoxemia. Continue steroids. 2. Acute exacerbation of COPD secondary to #1. She has underlying centrilobular emphysema and is on triple inhaled nebulized therapy at home. Baseline status has mild wheezing. Continue bronchodilators. 3. SVT. Associated with the above. Monitor for beta khoa-induced bronchospasm. 4. Alpha 1-antitrypsin MS phenotype. Normal variant with no associated pulmonary disease. 5. History of tobacco abuse. Plan She is doing amazingly well from a pulmonary standpoint. Continue supportive care for now.
[2023-08-15] MEDS: BUDESONIDE 0.5 MG/2 ML AMPULE NEB IH ×2 (11:45→23:44)
--- NOTE | 2023-08-15 12:52 | P.PN_ITS ---
<Statement entered by Emerson Pinto MD - 08/15/23 20:36> Patient seen and examined, agree with assessment and plan below. SOB improved and mild SOB. Continues to have tachycardia and adjusting metoprolol. Diagnosis: 1. COPD exacerbation 2. Covid-19 3. Tachycardia 4. Lactic acidosis 5. Dehydration 6. HTN 7. Alpha-1 anti-trypsin deficiency Progress Note: Subjective Subjective Interval history: 08/15/23 1050 The pt is resting comfortably in bed. Her respiratory rate is stable and she remains on RA. Significant wheezing and tightness noted on exam, but improved since admission. She is stable on RA. Her HR continues to spike and sustain at times above 130 - primarily with activity. She is responding well to PRN Lopressor in addition to her home metoprolol tartrate without worsening of her pulmonary symptoms. We will increase her daily metoprolol dose to 100 mg/day (from 75 mg) and change the preparation to once daily metoprolol succinate in hopes of improving her overall rate control. Her BP will easily tolerate an increase in BB therapy. She will need an additional 24-48 of inpatient care to monitor her HR and for continued IVP steroid dosing and frequent breathing treatments. Exam Constitutional Vital Signs, click to edit/add: Last Vital Signs Temp 98.5 F 08/15/23 03:27 Pulse 110 H 08/15/23 11:00 Resp 20 08/15/23 12:00 BP 169/94 H 08/15/23 03:27 Pulse Ox 93 L 08/15/23 11:48 O2 Del Method Room Air 08/15/23 11:48 O2 Flow Rate 2 08/14/23 13:53 Common normals: no apparent distress, oriented x3 and alert General appearance: cooperative Orientation/consciousness: Yes awake [facility] Common normals: normocephalic, head/scalp atraumatic and hearing grossly normal bilaterally Eye Common normals: PERRL, EOMs intact bilaterally, conjunctivae normal and no scleral icterus General eye: normal appearance of both eyes Chest Common normals: inspection of chest normal Chest: symmetrical chest wall rise Respiratory Common normals: normal respiratory effort, no use of accessory muscles and clear to auscultation bilaterally Effort & inspection: able to speak in complete sentences Auscultation: wheezes (EE wheezing scattered throughout) and diminished lung sounds (Still tight throughout, but improved air exchange since admission) Cardio Common normals: regular rhythm, S1 normal heart sound, S2 normal heart sound, no murmurs and peripheral pulses 2+ throughout Rate: tachycardic (HR 95-110 during exam, up to 130-150 w/ activity) GI Common normals: Normal to inspection, nondistended, normoactive bowel sounds present, soft to palpation, non-tender and no hepatosplenomegaly Bladder/kidney exam: bladder normal to palpation Extremity Common normals: normal to inspection and no calf tenderness General: no edema Neuro Common normals: CN's II-XII intact bilaterally, moves all extremities, no focal motor deficits and no sensory deficits noted Psych Common normals: mental status grossly normal Progress Note: Objective Labs Labs: Short CBC 08/15/23 Range/Units 04:16 WBC 8.8 (4.0-11.0) 10^3/uL Hgb 10.8 L (12.0-16.0) g/dL Hct 33.6 L (36.0-48.0) % Plt Count 318 (150-450) 10^3/uL BMP 08/15/23 04:16 Sodium 139 Potassium 3.6 Chloride 103 Carbon Dioxide 25.1 BUN 11.0 Creatinine 0.81 Glucose 175 H Calcium 9.7 Liver Function 08/15/23 Range/Units 04:16 Total Bilirubin 0.3 (0.2-1.0) mg/dL AST 13 L (15-37) U/L ALT 29 (14-59) U/L Alkaline Phosphatase 89 (46-116) U/L Albumin 2.8 L (3.4-5.0) g/dL Progress Note: A&P Assessment and Plan (1) COPD exacerbation: Assessment and Plan: ACUTE * Improving * Continue Xopenex/ipratropium scheduled q4h, Pulmicort nebs BID, prn lev albuterol nebs * Continue Solumedrol IVP 40 mg q6h * Guaifenesin/OPEP for sputum mobilization * Continue Levaquin for suspected underlying bronchitis, possible pneumonitis * Aspiration pneumonia/bronchiolitis suspected * Continue ABX for now * Pt reports increased GERD recently. Increased PPI to BID dosing temporarily to reduce GERD/possible aspiration * O2 to keep sats above 90%. * stable on RA currently * CBC, CMP daily (2) COVID-19: Assessment and Plan: ACUTE * Paxlovid BID x 5 days * Supportive care - see COPD exacerbation (3) Tachycardia: Assessment and Plan: ACUTE * HR intermittenly sustained above 130 with activity, mostly 100-115 at rest * Suspect multifactorial - dyspnea/hypoxia, anxiety * PE ruled out on CTA chest * Increase home metoprolol to 100 mg total/day (from 75mg). Change to m etoprolol succinate in AM 100 mg for improved overall rate control * Continue PRN Lopressor IVP for HR sustained above 120 * Low threshold to give Diltiazem IVP or gtt pending clinical course/response to above measures * Continue Levalbuterol for breathing treatments in place of albuterol to reduce cardiac demand * Tele monitoring (4) Dehydration: Assessment and Plan: ACUTE * Resolved * d/c IVF * CMP in AM (5) Lactic acidosis: Assessment and Plan: ACUTE * Elevated lactic acid persists despite IVF administration * suspect 2/2 chronic hypoxia/acute COPD exacerbation * No clinical suspicion for sepsis (6) Anxiety and depression: Assessment and Plan: CHRONIC * Defer to outpatient management for depression. * PCP reportedly starting pt on antidepressant but not yet called in to pharmacy. * PRN Ativan PO for anxiety/sleeplessness during acute hospitalization (7) HTN (hypertension): Assessment and Plan: CHRONIC * Continue home amlodipine, lopressor, losartan (8) Hyperlipidemia: Assessment and Plan: CHRONIC * Hold home statin during acute hospitalization. Resume at d/c (9) Restless legs: Assessment and Plan: CHRONIC * Continue home pramipexole
[2023-08-15] MEDS: METOPROLOL TARTRATE 25 MG TABLET 12.5 MG PO ×2 (13:27→21:15)
--- NOTE | 2023-08-15 16:20 | CM.NOTE ---
Important Message From Medicare discussed with pt, pt verbalizes understanding and signs paper. Original given to pt and copy placed in pt's chart.
[2023-08-15] MEDS: LORAZEPAM 0.5 MG TABLET PO (21:15)
[2023-08-15] MEDS: PRAMIPEXOLE 1 MG TABLET 0.5 MG PO (21:20)
[2023-08-16] VITALS (10 sets, daily range): BP systolic 147; BP diastolic 78; PULSE 100–126; RESP 18–20; TEMP 36.6; O2SAT 93–96
[2023-08-16] MEDS: LEVALBUTEROL HCL 0.63 MG/3 ML VIAL.NEB IH ×3 (03:39→11:15)
[2023-08-16] MEDS: IPRATROPIUM BROMIDE 0.5 MG/2.5 ML VIAL.NEB IH ×3 (03:39→11:15)
[2023-08-16] MEDS: METHYLPREDNISOLONE SOD SUCC PF 40 MG/ML VIAL IVP ×2 (04:47→13:24)
[2023-08-16 04:56] LABS: Basophils Percent Auto 0.1 % (0.2-2.0); Hematocrit 32.9 % (36.0-48.0); Hemoglobin 10.6 g/dL (12.0-16.0); Immature Granulocytes Abs Auto 0.12 10^3/uL (0.00-0.03); Immature Granulocytes Pct Auto 0.9 % (0.0-0.5); Lymphocytes Absolute Auto 0.6 10^3/uL (1.2-3.8); Mean Corpuscular HGB Conc 32.2 g/dL (29.9-35.2); Mean Corpuscular Hemoglobin 28.7 pg (26.7-34.0); Mean Corpuscular Volume 89.2 fL (81.0-99.0); Mean Platelet Volume 9.5 fL (9.5-13.5); Monocytes Absolute Auto 0.5 10^3/uL (0.3-0.8); Monocytes Percent Auto 3.3 % (1.7-12.0); Neutrophils Absolute Auto 12.9 10^3/uL (1.4-6.5); Neutrophils Percent Auto 91.7 % (43.0-75.0); Platelet Count 354 10^3/uL (150-450); Red Blood Count 3.69 10^6/uL (4.20-5.40); Red Cell Distribution Width 13.6 % (11.0-15.0); White Blood Count 14.1 10^3/uL (4.0-11.0)
[2023-08-16 05:12] LABS: Alanine Aminotransferase 31 U/L (14-59); Albumin Globulin Ratio 0.7; Albumin Level 2.7 g/dL (3.4-5.0); Alkaline Phosphatase 82 U/L (46-116); Anion Gap 11.7; Aspartate Amino Transferase 21 U/L (15-37); BUN Creatinine Ratio 12.5; Bilirubin Total 0.3 mg/dL (0.2-1.0); Calcium 9.5 mg/dL (8.5-10.1); Carbon Dioxide 27.4 mmol/L (21.0-32.0); Chloride 101 mmol/L (98-107); Estimated GFR (African America >60 (>=60); Estimated GFR (Non-African Ame >60 (>=60); Glucose 150 mg/dL (74-106); Potassium 3.1 mmol/L (3.5-5.1); Sodium 137 mmol/L (136-145); Total Protein 6.7 g/dL (6.4-8.2)
[2023-08-16] MEDS: MAGNESIUM OXIDE 400 MG TABLET PO (08:27)
[2023-08-16] MEDS: MELOXICAM 7.5 MG TABLET PO (08:27)
[2023-08-16] MEDS: METOPROLOL SUCCINATE 100 MG TAB.ER.24H PO (08:27)
[2023-08-16] MEDS: OMEPRAZOLE 40 MG CAPSULE.DR PO (08:28)
[2023-08-16] MEDS: GUAIFENESIN 600 MG TAB.ER.12H PO (08:28)
[2023-08-16] MEDS: LOSARTAN POTASSIUM 50 MG TABLET 100 MG PO (08:28)
[2023-08-16] MEDS: ENOXAPARIN SODIUM 40 MG/0.4 ML SYRINGE SUBQ (08:29)
[2023-08-16] MEDS: AMLODIPINE BESYLATE 5 MG TABLET PO (08:29)
--- NOTE | 2023-08-16 10:59 | CM.NOTE ---
Rounding with j luis Waltonay for discharge to home today. No discharge needs identified.
--- NOTE | 2023-08-16 11:06 | P.DS_ITS ---
<Statement entered by Emerson Pinto MD - 08/16/23 17:36> Patient seen and examined, agree with assessment and plan below. Presented with SOB and noted tachycardia. Covid positive. Increased metoprolol. Minimal SOB. Tachycardia likely related to covid. Improved with treatment and discharged in stable condition. PCP can monitor tachycardia. Diagnosis: 1. COPD exacerbation 2. Covid-19 3. Tachycardia 4. Lactic acidosis 5. Dehydration 6. HTN 7. Alpha-1 anti-trypsin deficiency DS: Providers Provider Date of admission: 08/14/23 12:30 Primary care physician: Shaikh Jerrell MD Consults: 08/14/23 14:01 Consult to Pulmonology Routine Consulting Provider: Mihir Patel Reason for consultation: COVID+/COPD exac/Resp failure Has provider been notified: No Discharging clinician: Rachel Rankin DS: Diagnosis Discharge Diagnosis (1) COPD exacerbation: (2) COVID-19: (3) Tachycardia: (4) Dehydration: (5) Lactic acidosis: DS: Summary Hospital Course Hospital Course: The patient was admitted with an acute COPD exacerbation in setting of acute COVID-19 infection and notable sinus tachycardia. She was treated with high- dose steroids, antibiotics, IV fluids, and Paxlovid. She was seen in consult by pulmonology as the patient follows closely with pulmonology as an outpatient. Her respiratory status was close to baseline per the cigarette examiner evaluation but he did recommend continued high-dose steroids and antibiotics during her admission. She was initially on O2 supplementation but this was quickly weaned off by the time she arrived to the medical floor from the ED. She was notably tachycardic with a heart rate sustained above 130 on admission. She responded well to IV push Lopressor doses and was asymptomatic of this tachycardia. Eventually her home metoprolol dosing was increased from 75 mg/day to 100 mg/day and then was transition to metoprolol succinate 100 mg/day prior to discharge. Although her HR is not yet completely back to normal, we suspect COVID induced autonomic dysfunction and expect that this will slowly resolve with her increased metoprolol dosing. As the patient feels that her respiratory status is back to her baseline, she is being discharged home in stable condition. She was prescribed renally dosed Levaquin to complete a 7-day course, a long prednisone taper, and the remaining portion of her Paxlovid Dosepak. She should follow-up with her PCP in 3-[address] Patel, cigarette examiner, as previously scheduled. Time Spent with Patient Time attestation: Total time spent providing and/or coordinating discharge services: Time spent: greater than 30 minutes Specific discharge activities: Physical exam, discussion of discharge plan, questions answered, coordination of care with staff. Exam Constitutional Vital Signs, click to edit/add: Last Vital Signs Temp 97.8 F 08/16/23 04:44 Pulse 124 H 08/16/23 09:59 Resp 20 08/16/23 04:44 BP 147/78 H 08/16/23 04:44 Pulse Ox 93 L 08/16/23 07:24 O2 Del Method Room Air 08/16/23 07:24 O2 Flow Rate 2 08/14/23 13:53 Common normals: no apparent distress, oriented x3 and alert General appearance: cooperative Orientation/consciousness: Yes awake HENMT Common normals: normocephalic and head/scalp atraumatic Head and scalp: normocephalic Eye Common normals: PERRL, EOMs intact bilaterally, conjunctivae normal and no scleral icterus Neck & C-Spine Common normals: no JVD Respiratory Common normals: normal respiratory effort and no use of accessory muscles Effort & inspection: able to speak in complete sentences and symmetric chest movement Auscultation: wheezes (EE scattered throughout. Significantly improved air exchange. At baseline.) Cardio Common normals: no JVD, regular rhythm, S1 normal heart sound, S2 normal heart s ound, no murmurs and peripheral pulses 2+ throughout Rate: tachycardic (Mild - 100-110, occ 120s. Asymptomatic) GI Common normals: Normal to inspection, nondistended, normoactive bowel sounds present and soft to palpation Bladder/kidney exam: bladder normal to palpation Extremity Common normals: normal to inspection, full ROM, normal capillary refill and no pedal edema General: no cyanosis Neuro Common normals: moves all extremities, no focal motor deficits and no sensory deficits noted Speech: speech normal Psych Common normals: mental status grossly normal and activity/motor behavior normal DS: Data Data Completed and Pending Labs on day of discharge: Labs from last 24 hours 08/16/23 04:36 WBC 14.1 H RBC 3.69 L Hgb 10.6 L Hct 32.9 L MCV 89.2 MCH 28.7 MCHC 32.2 RDW 13.6 Plt Count 354 MPV 9.5 Neut % (Auto) 91.7 H Lymph % (Auto) 4.0 L [place] % (Auto) 3.3 Eos % (Auto) 0.0 L Baso % (Auto) 0.1 L Neut # (Auto) 12.9 H Lymph # (Auto) 0.6 L [place] # (Auto) 0.5 Eos # (Auto) 0.0 Baso # (Auto) 0.0 Abs Immat Gran (auto) 0.12 H Imm/Tot Granulo (auto) 0.9 H Sodium 137 Potassium 3.1 L Chloride 101 Carbon Dioxide 27.4 Anion Gap 11.7 BUN 10.0 Creatinine 0.80 Est GFR ( Amer) >60 Est GFR (Non-Af Amer) >60 BUN/Creatinine Ratio 12.5 Glucose 150 H Calcium 9.5 Total Bilirubin 0.3 AST 21 ALT 31 Alkaline Phosphatase 82 Total Protein 6.7 Albumin 2.7 L Globulin 4.0 Albumin/Globulin Ratio 0.7 Discharge Plan Discharge Disposition: Home, Self-Care Condition: Fair Discharge Medications: New metoprolol succinate 100 mg tablet extended release 24 hr 100 mg PO DAILY Qty: 30 0RF levofloxacin 750 mg tablet 750 mg PO Q48H 4 Days Qty: 2 0RF Rx Instructions: Take first dose on 08/18/23 prednisone 10 mg tablet See Rx Instructions .ROUTE .COMPLEX Qty: 42 0RF Rx Instructions: 6 tabs daily x 2 days, then 5 tabs daily x 2 days, then 4 tabs daily x 2 days, then 3 tabs daily x 2 days, then 2 tabs daily x 2 days, then 1 tab daily x 2 days, stop Paxlovid 300 mg (150 mg x 2)-100 mg tablets,dose pack See Rx Instructions .ROUTE .COMPLEX 3 Days Qty: 30 0RF Rx Instructions: Complete Paxlovid pack, taking 3 tabs twice daily until gone Continued alendronate 70 mg tablet 70 mg PO .ONCE WEEKLY atorvastatin 40 mg tablet 40 mg PO BEDTIME amlodipine 5 mg tablet 5 mg PO QDAY losartan 100 mg tablet 100 mg PO DAILY meloxicam 7.5 mg tablet 7.5 mg PO DAILY pantoprazole 40 mg tablet,delayed release (DR/EC) 40 mg PO DAILY pramipexole 0.5 mg tablet 0.5 mg PO BEDTIME Rx Instructions: 2 hours before bedtime potassium gluconate 595 mg (99 mg) tablet 595 mg PO DAILY cholecalciferol (vitamin D3) 50 mcg PO DAILY magnesium 200 mg tablet 200 mg PO DAILY multivitamin Tablet 1 tab PO DAILY Yupelri 175 mcg/3 mL solution for nebulization 175 mcg inhalation DAILY arformoterol 15 mcg/2 mL solution for nebulization 15 mcg inhalation Q12H budesonide 0.5 mg/2 mL suspension for nebulization 0.5 mg inhalation BID Discontinued metoprolol tartrate 25 mg tablet 25 mg PO TID Activity: increase activity as tolerated Diet: advance to your usual diet Patient Instructions: Metoprolol (By mouth), Prednisone (By mouth), Levofloxacin (By mouth), Nirmatrelvir/Ritonavir (By mouth), COVID-19 and Chronic Health Conditions (DC) Activity Restrictions/Additional Instructions: - Discuss metoprolol dosing/heart rate at follow up PCP appointment Forms: Portal Instructions Follow Up Appointments: @ 11:30am with Dr. Allan - discuss metoprolol dosing/heart rate [phone] Discharge Date/Time: 08/16/23 14:18
[2023-08-16] MEDS: BUDESONIDE 0.5 MG/2 ML AMPULE NEB IH (11:15)
[2023-08-16] MEDS: LEVOFLOXACIN 750 MG TABLET PO (13:24)
== END 2023-08-16 14:18 | disposition home or self-care (01) | DRG 177 ==
LOC: ER 10:25 → MS 12:01 → ICU 12:39 → MS 08-15 20:43
PROVIDERS: Nurse Practitioner; Admitting Provider Family Medicine; Emergency Provider Emergency Medicine; PCP Internal Medicine; Visit Provider Family Medicine
DX: U07.1 COVID-19 (principal); J12.82 Pneumonia due to coronavirus disease 2019; E87.20 Acidosis, unspecified; J44.1 Chronic obstructive pulmonary disease with (acute) exacerbation; I47.10 Supraventricular tachycardia, unspecified; J43.2 Centrilobular emphysema; J06.9 Acute upper respiratory infection, unspecified; E88.01 Alpha-1-antitrypsin deficiency; K21.9 Gastro-esophageal reflux disease without esophagitis; E86.0 Dehydration; I10 Essential (primary) hypertension; E78.5 Hyperlipidemia, unspecified; F32.A Depression, unspecified; F41.9 Anxiety disorder, unspecified; G25.81 Restless legs syndrome; M81.0 Age-related osteoporosis without current pathological fracture; Z87.891 Personal history of nicotine dependence; Z79.899 Other long term (current) drug therapy; Z79.83 Long term (current) use of bisphosphonates; Z79.1 Long term (current) use of non-steroidal anti-inflammatories (NSAID); Z88.5 Allergy status to narcotic agent
CPT/HCPCS: 0202U; 36415; 71045; 71275; 80053; 82800; 83605; 83880; 84145; 84484; 85025; 85378; 87040; 93005; 94640; 94667; 94668; 94761; 96361; 96365; 96368; 96372; 96375; 96376; 99285; J1650; J2920; J2930; J3475; Q9967

== ENCOUNTER 2023-09-09 09:18 | Emergency (ER) | payer MEDICARE, SELFPAY ==
[2023-09-09] VITALS (11 sets, daily range): BP systolic 112–137; BP diastolic 57–65; PULSE 63–87; RESP 15–26; TEMP 37; O2SAT 95–100; BMI 25.2
--- NOTE | 2023-09-09 09:41 | ECG_ITS ---
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
--- NOTE | 2023-09-09 09:42 | XR_ITS ---
The [address] [address] Patient Name: ANGELITA ADRIAN MRN: [id number] date: 1955 Sex: F Assigned Patient Location: ER Current Patient Location: Accession/Order Number: [id number] Exam Date: 09/09/2023 09:55 Report Date: 09/09/2023 11:12 At the request of: KACIE ORTIZ Procedure: XR chest 1V EXAM: XR chest 1V 09/09/2023 COMPARISON STUDY: AP chest 08/15/2023. FINDINGS: Single upright AP chest image was obtained. HISTORY: sob, recent Covid XR/XR chest 1V IMPRESSION: 1. The cardiomediastinal contours are stable. Heart size is top normal. Atherosclerotic change of aorta is identified. 2. Pulmonary hyperinflation with background COPD pattern/emphysema again noted. No acute cardiopulmonary process in the interval. 3. No new dense consolidation, effusion, edema, failure or pneumothorax. Old healed left lower rib fracture deformity again noted. Electronically authenticated by: LULI SANCHEZ Date: 09/09/2023 11:12
[2023-09-09 10:00] LABS: Basophils Percent Auto 0.5 % (0.2-2.0); Eosinophils Absolute Auto 0.3 10^3/uL (0.0-0.7); Eosinophils Percent Auto 6.8 % (0.9-7.0); Hematocrit 35.5 % (36.0-48.0); Hemoglobin 11.5 g/dL (12.0-16.0); Immature Granulocytes Abs Auto 0.01 10^3/uL (0.00-0.03); Immature Granulocytes Pct Auto 0.3 % (0.0-0.5); Lymphocytes Absolute Auto 0.8 10^3/uL (1.2-3.8); Lymphocytes Percent Auto 20.6 % (20.5-60.0); Mean Corpuscular HGB Conc 32.4 g/dL (29.9-35.2); Mean Corpuscular Hemoglobin 29.2 pg (26.7-34.0); Mean Corpuscular Volume 90.1 fL (81.0-99.0); Mean Platelet Volume 9.4 fL (9.5-13.5); Monocytes Absolute Auto 0.5 10^3/uL (0.3-0.8); Neutrophils Absolute Auto 2.2 10^3/uL (1.4-6.5); Neutrophils Percent Auto 58.8 % (43.0-75.0); Platelet Count 194 10^3/uL (150-450); Red Blood Count 3.94 10^6/uL (4.20-5.40); Red Cell Distribution Width 14.6 % (11.0-15.0); White Blood Count 3.7 10^3/uL (4.0-11.0)
[2023-09-09 10:09] LABS: Anion Gap 12.4; BUN Creatinine Ratio 7.7; Carbon Dioxide 26.5 mmol/L (21.0-32.0); Chloride 101 mmol/L (98-107); Estimated GFR (African America >60 (>=60); Estimated GFR (Non-African Ame >60 (>=60); Glucose 110 mg/dL (74-106); Potassium 3.9 mmol/L (3.5-5.1); Sodium 136 mmol/L (136-145)
--- OUTSIDE RECORDS SUMMARY | 2023-09-09 10:13 | XMS_ITS | CCD ---
Author Name Unknown Address [address] [place] [address] Organization [facility] Care Team Providers Care Manager Floral Name Role Phone FAWWAD, KHAN H Admitting Unavailable FAWWAD, KHAN H Attending Unavailable FAWWAD, KAHN H Primary Care Unavailable FAWWAD, KHAN H Consulting Unavailable SAMSA ., ÁLVARO Admitting Unavailable SAMSA ., ÁLVARO Attending Unavailable FAWWAD, KHAN H Primary Care Unavailable DR THERESA LUCIA Consulting Unavailable SAMSA ., ÁLVARO Consulting Unavailable SAMSA ., ÁLVARO Admitting Unavailable SAMSA ., ÁLVARO Attending Unavailable FAWWAD, KHAN H Primary Care Unavailable SAMSA ., ÁLVARO Admitting Unavailable SAMSA ., ÁLVARO Attending Unavailable FAWWAD, KHAN H Primary Care Unavailable SAMSA ., ÁLVARO Consulting Unavailable FRANCIS ANDERSON Consulting Unavailable Fawwad, Khan Unavailable Unavailable Unavailable Amanda, Dr. Álvaro Fritz Referring Unavailab le Traboulssi, Dr. Velasquez Attending Unavaila ble Traboulssi, Dr. Velasquez Referring Unavaila ble Traboulssi, Dr. Velasquez Attending Unavaila ble Traboulssi, Dr. Velasquez Referring Unavaila ble Traboulssi, Dr. Velasquez Attending Unavaila ble Traboulssi, Dr. Velasquez Attending Unavaila ble FAWWAD, KHAN Attending Unavailable FAWWAD, KHAN Attending Unavailable Allergies Allergy Classification Reported Allergen(s) Allergy Type Date of Onset Reaction(s) Facility (1 source) Codeine Drug Allergy 03-06-2017 [facility] Repository (4 sources) Codeine; 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: [Codeine Derivatives] Drug Allergy Nausea -[facility] 250 DO Work Phone: Medications Completed/Discontinued Medications Medication Drug Class(es) Dates Sig (Normalized) Sig (Original) [id number] 200 actuat albuterol 0.09 mg/actuat metered dose inhaler (4 sources) beta2-Adrenergic Agonist take 1 puff(s) by inhalation every four hours as needed Ventolin HFA 108 (90 Base) MCG/ACT Inhalation Aerosol Solution INHALE 1 PUFF EVERY 4 HOURS NEEDED. Quantity: 0 Refills: 0 Ordered: 26-Jan-2023 DO Active alendronic acid 70 mg oral tablet (4 sources) Bisphosphonate take 1 tablet by mouth every week Alendronate Sodium 70 MG Oral Tablet TAKE 1 TABLET ONCE WEEKLY. Quantity: 0 Refills: 0 Ordered: 26-Jan-2023 DO Active amLODIPine 5 mg oral tablet (4 sources) Dihydropyridine Calcium Channel Frederick take 1 tablet by mouth once daily amLODIPine Besylate 5 MG Oral Tablet TAKE 1 TABLET DAILY. Quantity: 0 Refills: 0 Ordered: 26-Jan-2023 DO Active arformoterol 0.0075 mg/ml inhalation solution (4 sources) beta2-Adrenergic Agonist take 1 dose by inhalation twice daily in the morning Brovana 15 MCG/2ML Inhalation Nebulization Solution INHALE THE CONTENTS OF 1 VIAL TWO TIMES DAILY IN THE MORNING AND EVENING VIA STANDARD JET NEBULIZER DIRECTED. Quantity: 0 Refills: 0 Ordered: 26-Jan-2023 DO Active atorvastatin 40 mg oral tablet (4 sources) HMG-CoA Reductase Inhibitor take 1 tablet by mouth once daily Atorvastatin Calcium 40 MG Oral Tablet TAKE 1 TABLET DAILY. Quantity: 0 Refills: 0 Ordered: 26-Jan-2023 DO Active budesonide 0.25 mg/ml inhalation suspension (4 sources) Corticosteroid take 1 [IU] by inhalation twice daily Pulmicort 0.5 MG/2ML Inhalation Suspension USE 1 UNIT DOSE VIA NEBULIZER TWO TIMES A DAY Quantity: 0 Refills: 0 Ordered: 26-Jan-2023 DO Active losartan potassium 100 mg oral tablet (4 sources) Angiotensin 2 Receptor Frederick take 1 tablet by mouth once daily Losartan Potassium 100 MG Oral Tablet TAKE 1 TABLET DAILY. Quantity: 0 Refills: 0 Ordered: 26-Jan-2023 DO Active meloxicam 7.5 mg oral tablet (4 sources) Nonsteroidal Anti-inflammatory Drug take 1 tablet by mouth once daily Meloxicam 7.5 MG Oral Tablet TAKE 1 TABLET DAILY. Quantity: 0 Refills: 0 Ordered: 26-Jan-2023 DO Active metoprolol tartrate 25 mg oral tablet (4 sources) beta-Adrenergic Frederick take 1 tablet by mouth once daily Metoprolol Tartrate 25 MG Oral Tablet TAKE 1 TABLET DAILY. Quantity: 0 Refills: 0 Ordered: 26-Jan-2023 DO Active pantoprazole 40 mg delayed release oral tablet (4 sources) Proton Pump Inhibitor take 1 tablet by mouth once daily Pantoprazole Sodium 40 MG Oral Tablet Delayed Release TAKE 1 TABLET DAILY. Quantity: 0 Refills: 0 Ordered: 26-Jan-2023 DO Active microencapsulated potassium chloride 20 meq extended release oral tablet (4 sources) take 1 tablet by mouth once daily Potassium Chloride Diane ER 20 MEQ Oral Tablet Extended Release TAKE 1 TABLET DAILY. Quantity: 0 Refills: 0 Ordered: 26-Jan-2023 DO Active pramipexole dihydrochloride 0.5 mg oral tablet (4 sources) Nonergot Dopamine Agonist take 1 tablet by mouth at bedtime Pramipexole Dihydrochloride 0.5 MG Oral Tablet TAKE 1 TABLET AT BEDTIME. Quantity: 0 Refills: 0 Ordered: 26-Jan-2023 DO Active revefenacin 0.0583 mg/ml inhalation solution (4 sources) take 1 puff(s) by inhalation once daily Yupelri 175 MCG/3ML Inhalation Solution INHALE 1 PUFFS Daily Quantity: 0 Refills: 0 Ordered: 26-Jan-2023 DO Active Problems Active Problems Problem Classification Problem Date Documented Da te Episodic/Chronic Chronic obstructive pulmonary disease and bronchiectasis (4 sources) Centriacinar emphysema; 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: [Other emphysema] Chronic Disorders of lipid metabolism (4 sources) Mixed hyperlipidemia; 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: [Mixed hyperlipidemia] Chronic Essential hypertension (8 sources) Essential (primary) hypertension; 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: [Hypertensive disorder] Onset: 04-20-2022 Chronic Other lower respiratory disease (4 sources) Dyspnea; 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: [Other respiratory abnormalities] Episodic Other lower respiratory disease (1 source) Shortness of breath; 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: [Shortness of breath] Onset: 03-09-2023 Episodic Other lower respiratory disease (2 sources) Dyspnea, unspecified; 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: [Dyspnea, unspecified] Onset: 03-09-2023 Episodic Other nutritional; endocrine; and metabolic disorders (4 sources) Subkv-2-sjtljvpokxo deficiency; 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: [Pqpna-1-smutalsnvk n deficiency] Chronic Other nutritional; endocrine; and metabolic disorders (4 sources) Overweight in adulthood with body mass index of 25 or more but less than 30; 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: [Overweight] Episodic Screening and history of mental health and substance abuse codes (8 sources) Personal history of nicotine dependence; 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: [Ex-smoker] Onset: 08-16-2022 Episodic Unclassified (3 sources) COUGH, UNSPECIFIED; 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: [COUGH, UNSPECIFIED] Onset: 10-19-2022 Past or Other Problems Problem Classification Problem Date Documented Da te Episodic/Chronic Unclassified (1 source) COUGH, UNSPECIFIED; 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: [COUGH, UNSPECIFIED] Onset: 10-17-2022 Results Test Name Value Interpretation Reference Range Facility Office Visit (Cardiology)on 03-30-2023 Follow-up visit Diagnoses/Problems Assessed Dyspnea (786.09) (R06.00) Dvvlk-6-cvbqamkddzj 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) Centrilobular emphysema (492.8) (J43.2) Former smoker (V15.82) (Z87.891) HTN (hypertension) (401.9) (I10) Mixed hyperlipidemia (272.2) (E78.2) Overweight with body mass index (BMI) of 26 to 26.9 in adult (278.02,V85.22) (E66.3,Z68.26) Orders Overweight with body mass index (BMI) of 26 to 26.9 in adult Healthy Weight Tips; Status:Complete - Retrospective Authorization; Done: [id number] Some eating tips that can help you lose weight.; Status:Complete - Retrospective Authorization; Done: [id number] SocHx: Former smoker Tobacco Use Screening; Status:Complete; Done: [id number] Patient Instructions Please bring all medicines, vitamins, and herbal supplements with you when you come to the office. Prescriptions will not be filled unless you are compliant with your follow up appointments or have a follow up appointment scheduled as per instruction of your physician. Refills should be requested at the time of your visit. Follow up in [ ] months Same meds The provider reviewed the following test(s) and result(s) with the patient: echocardiogram and pharmacologic stress test Chief Complaint ANGELITA ADRIAN is being seen for results mpl and echo. History of Present Illness Patient is here for follow-up due to management for recent evaluation for shortness of breath. The patient is known to have history advanced lung disease. She underwent stress test and echocardiogram both appears to be reassuring. Patient denies any change in cardiac status or symptoms since last time I saw her. Assessment 1. Class III shortness of breath in patient with known history of tobacco use, COPD/emphysema. Recent cardiac testing including echocardiogram and stress test are reassuring 2. History of tobacco use quit 3 years ago 3. History of centrilobular emphysema with alpha antitrypsin deficiency 4. Hypertension 5. Intermittent lower extremity edema 6. Borderline obesity Recommendation 1. I reviewed with her the results of her echocardiogram and stress test and reassured her 2. I educated her about ischemic heart disease 3. I review multiple pieces of information including her recent CT scan, pulmonary function test, lab work and remote echo 4. We will see her back in 6 months and follow-up Surgical History Problems History of Appendectomy History of Cataract surgery History of Colonoscopy History of Eye surgery History of Hysterectomy Current Meds Medication NameInstruction Alendronate Sodium 70 MG Oral TabletTAKE 1 TABLET ONCE WEEKLY. amLODIPine Besylate 5 MG Oral TabletTAKE 1 TABLET DAILY. Atorvastatin Calcium 40 MG Oral TabletTAKE 1 TABLET DAILY. Brovana 15 MCG/2ML Inhalation Nebulization SolutionINHALE THE CONTENTS OF 1 VIAL TWO TIMES DAILY IN THE MORNING AND EVENING VIA STANDARD JET NEBULIZER DIRECTED. Losartan Potassium 100 MG Oral TabletTAKE 1 TABLET DAILY. Meloxicam 7.5 MG Oral TabletTAKE 1 TABLET DAILY. Metoprolol Tartrate 25 MG Oral TabletTAKE 1 TABLET DAILY. Pantoprazole Sodium 40 MG Oral Tablet Delayed ReleaseTAKE 1 TABLET DAILY. Potassium Chloride Diane ER 20 MEQ Oral Tablet Extended ReleaseTAKE 1 TABLET DAILY. Pramipexole Dihydrochloride 0.5 MG Oral TabletTAKE 1 TABLET AT BEDTIME. Pulmicort 0.5 MG/2ML Inhalation SuspensionUSE 1 UNIT DOSE VIA NEBULIZER TWO TIMES A DAY Ventolin HFA 108 (90 Base) MCG/ACT Inhalation Aerosol SolutionINHALE 1 PUFF EVERY 4 HOURS NEEDED. Yupelri 175 MCG/3ML Inhalation SolutionINHALE 1 PUFFS Daily Patient did not bring medication list or bottles. Updated verbally with patient Allergies Medication Codeine Derivatives Nausea; Recorded By: Stanton Shea; 01/26/2023 11:23:41 AM Social History Problems Former smoker (V15.82) (Z87.891) No alcohol use No caffeine use No illicit drug use Review of Systems Constitutional: not feeling tired. Cardiovascular: no intermittent leg claudication and as noted in HPI. Respiratory: shortness of breath, but no cough. Gastrointestinal: no change in bowel habits and no blood in stools. Integumentary: no skin rashes. Neurological: no seizures and no frequent falls. All other systems have been reviewed and are negative for complaint. Vitals Vital Signs Recorded: [id number] 10:39AM Heart Rate76, L Radial Ownquthl054, LUE, Sitting Sxmwvpnzh86, LUE, Sitting Height4 ft 11 in Bsiape333 lb BMI Xtrltjyyah05.86 kg/m2 BSA Calculated1.55 Tobacco Useb) No PHQ-2 #1. Over the last 2 weeks have you felt down, depressed or hopeless? (If yes, answer PHQ-9 below)No PHQ-2 #2. Over the last 2 weeks have you felt little interest or pleasure in doing things? (If yes, answer PHQ-9 below)No Falls Screening (Age 18+)a) No falls within the last year Physical Exam Constitutional: alert and in no acute distress. Neck: neck is supple, symmetric, trachea midline, no masses and no thyromegaly . Pulmonary: n (more content not included)... Normal [facility] Tobacco Screening.on 023 Adult depression screening assessment No [facility] 250 DO Work Phone: Fall risk assessment a) No falls within the last year [facility] 250 DO Work Phone: Tobacco use status CPHS b) No [facility] 250 DO Work Phone: Echocardiogramon 03-09-2023 Echocardiography [facility] [address] [place] [address], [address] [place] [address] TRANSTHORACIC ECHOCARDIOGRAM REPORT Patient Name: ANGELITA TRAYLORJORGE Hernández Physician: [id number] Benny Kang MD Study Date: 03/09/2023 Referring Physician: BENNY KANG MRN/PID: [id number] PCP: Accession/Order#: [id number] Department Location: [facility] [place] Date of : 1955 Fellow: Gender: F Nurse: Admit Date: Graphic Design Professor: Fatuma Vidales RDCS, RVT Height: 149.86 cm CC Report to: Weight: 59.88 kg Study Type: Echocardiogram BSA: 1.55 m2 Blood Pressure: 140 /78 mmHg Diagnosis/ICD: R06.00-Dyspnea, unspecified Indication: HTN, Hyperlipidemia, Former Smoker, Centrilobular Emphysema, Alpha-1 Antitrysin Deficiency, Overweight Procedure/CPT: Echo Complete w Full [id number] Study Detail: The following Echo studies were performed: 2D, M-Mode, Doppler and color flow. PHYSICIAN INTERPRETATION: Left Ventricle: Left ventricular systolic function is normal, with an estimated ejection fraction of 70%. There are no regional wall motion abnormalities. The left ventricular cavity size is normal. Spectral Doppler shows an impaired relaxation pattern of left ventricular diastolic filling. Left Atrium: The left atrium is normal in size. Right Ventricle: The right ventricle is normal in size. There is normal right ventricular global systolic function. Right Atrium: The right atrium is normal in size. Aortic Valve: The aortic valve appears structurally normal. There is no evidence of aortic valve regurgitation. The peak instantaneous gradient of the aortic valve is 5.5 mmHg. The mean gradient of the aortic valve is 3.0 mmHg. Mitral Valve: The mitral valve is normal in structure. There is no evidence of mitral valve regurgitation. Tricuspid Valve: The tricuspid valve is structurally normal. No evidence of tricuspid regurgitation. No evidence of pulmonary hypertension. Pulmonic Valve: The pulmonic valve is structurally normal. There is no indication of pulmonic valve regurgitation. Pericardium: There is no pericardial effusion noted. Aorta: The aortic root is normal. CONCLUSIONS: 1. Left ventricular systolic function is normal with a 70% estimated ejection fraction. 2. Spectral Doppler shows an impaired relaxation pattern of left ventricular diastolic filling. 3. No evidence of pulmonary hypertension. 4. No change when compared to prior study. QUANTITATIVE DATA SUMMARY: 2D MEASUREMENTS: Normal Ranges: Ao Root d: 3.30 cm (2.0-3.7cm) LAs: 2.50 cm (2.7-4.0cm) RVIDd: 2.50 cm (0.9-3.6cm) IVSd: 0.90 cm (0.6-1.1cm) LVPWd: 1.00 cm (0.6-1.1cm) LVIDd: 4.10 cm (3.9-5.9cm) LVIDs: 2.70 cm LV Mass Index: 79.6 g/m2 LV % FS 34.1 % LV SYSTOLIC FUNCTION BY 2D PLANIMETRY (MOD): Normal Ranges: EF-A4C View: 64.1 % (>=55%) LV DIASTOLIC FUNCTION: Normal Ranges: MV Peak E: 0.79 m/s (0.7-1.2 m/s) MV Peak A: 0.90 m/s (0.42-0.7 m/s) E/A Ratio: 0.87 (1.0-2.2) MV lateral e' 0.08 m/s MV medial e' 0.05 m/s E/e' Ratio: 10.00 (<8.0) MITRAL VALVE: Normal Ranges: MV Vmax: 0.94 m/s (<=1.3m/s) MV peak P.5 mmHg (<5mmHg) MV mean P.0 mmHg (<48mmHg) AORTIC VALVE: Normal Ranges: AoV Vmax: 1.17 m/s (<=1.7m/s) AoV Peak P.5 mmHg (<20mmHg) AoV Mean P.0 mmHg (1.7-11.5mmHg) LVOT Max Gato: 1.05 m/s (<=1.1m/s) AoV VTI: 24.80 cm (18-25cm) LVOT VTI: 21.50 cm LVOT Diameter: 2.00 cm (1.8-2.4cm) AoV Area, VTI: 2.72 cm2 (2.5-5.5cm2) AoV Area,Vmax: 2.82 cm2 (2.5-4.5cm2) AoV Dimensionless Index: 0.87 TRICUSPID VALVE/RVSP: Normal Ranges: Peak TR Velocity: 2.08 m/s RV Syst Pressure: 20.3 mmHg (< 30mmHg) PULMONIC VALVE: Normal Ranges: PV Max Gato: 0.8 m/s (0.6-0.9m/s) PV Max P.7 mmHg [id number] Benny Kang MD Electronically signed on 03/10/2023 at 4:28:00 PM Final Normal [facility] CARDIAC STRESS/REST INJE CTIONon 03-09-2023 [facility] CARDIAC STRESS/REST INJECTION Patient Name: ANGELITA ADRIAN STUDY: MYOCARDIAL PERFUSION STRESS TEST WITH LEXISCAN Performing facility: [facility], [address], [address], [place] [address] [facility] Provider: Benny Kang MD PCP: Dr. David Allan Supervising provider: Polina Palomino MD, [facility] INDICATION: Dyspnea HISTORY: Gender: F; Age: 67 y/o ; Height: 0 cm; Weight: 0 kg. High Cholesterol; HTN; SOB; COPD; Emphysema Quit smoking 3.5 years ago. COMPARISON: No comparison. ACCESSION NUMBER(S): [id number]; [id number]; [id number] ORDERING CLINICIAN: BENNY KANG TECHNIQUE: ONE DAY protocol. Stress injection: Date:03-09-23, 33.6 mCi of Myoview IV 20 seconds after rapid injection of Lexiscan. Rest injection: Date: 03-09-23, 10.8 mCi of Myoview IV at rest. The patient had a rapid injection of 0.4 mg of Lexiscan IV over 10 seconds. Imaging was performed by gated tomographic technique. Reason for Lexiscan: SOB STRESS TEST DATA: Resting heart rate was 71 BPM. Resting blood pressure was 142/70 mmHg. Peak blood pressure was 150/68 mmHg. Peak heart rate was 93 BPM. TEST TERMINATED DUE TO: Protocol completed FINDINGS: STRESS TEST RESULTS: Resting electrocardiogram revealed normal sinus rhythm with PACs. There were no significant ischemic ECG changes or dysrhythmias. The patient did not have chest pains/symptoms during procedure. There was a normal recovery phase. IMAGING RESULTS: Image quality was good. Rest and stress tomographic images were reviewed and revealed normal perfusion without evidence of ischemia, myocardial infarction, or left ventricular dilatation with stress. Overall left ventricular systolic function appeared to be normal without regional wall motion abnormalities. Ejection fraction was 88%. TID is 0.86 and is normal. There was no evidence of attenuation artifact. IMPRESSION: Normal Lexiscan Myoview cardiac perfusion stress test. No evidence of ischemia or myocardial infarction by perfusion imaging. Normal left ventricular systolic function, ejection fraction 88%. No previous studies are available for comparison. Electronically signed by: MAURISIO GODOY MD [facility] No Panel Informationon 03-09 Normal -[facility] 250 DO Work Phone: Office Visit (Cardiology)on 01-26-2023 Follow-up visit Diagnoses/Problems Assessed Dyspnea (786.09) (R06.00) Centrilobular emphysema (492.8) (J43.2) Xhsjq-9-rgfnpndehbd 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) Former smoker (V15.82) (Z87.891) Mixed hyperlipidemia (272.2) (E78.2) HTN (hypertension) (401.9) (I10) Overweight with body mass index (BMI) of 26 to 26.9 in adult (278.02,V85.22) (E66.3,Z68.26) Orders Dyspnea Echocardiogram; Status:Hold For - Scheduling; Requested for:26Jan2023; IO EKG Electrocardiogram- 12 Lead; Status:Complete; Done: [id number] NM Cardiac Stress/Rest Nuclear Med Order; Status:Hold For - Scheduling; Requested for:26Jan2023; Radiologist to Determine Optimal Study : Y What are the patient's signs and symptoms? : dyspnea Overweight with body mass index (BMI) of 26 to 26.9 in adult Healthy Weight Tips; Status:Complete; Done: [id number] Some eating tips that can help you lose weight.; Status:Complete; Done: 26Jan2023 SocHx: Former smoker Tobacco Use Screening; Status:Complete; Done: 01Exx4423 Patient Instructions Please bring all medicines, vitamins, and herbal supplements with you when you come to the office. Prescriptions will not be filled unless you are compliant with your follow up appointments or have a follow up appointment scheduled as per instruction of your physician. Refills should be requested at the time of your visit. Fall prevention education given Follow up after testing Chief Complaint ANGELITA ADRIAN is being seen for a consultation for shortness of breath. History of Present Illness Patient is here for cardiovascular evaluation for increasing shortness of breath. 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 Who had been complaining of worsening shortness of breath. The patient reports she quit smoking about 3-1/2 years ago. The patient denies chest pain. She described functional class III. There has been no previous cardiac work-up except remote echocardiogram. The patient denies lightheadedness, dizziness or syncope. She does describe intermittent lower extremity edema. There is no family history of premature coronary artery disease or sudden cardiac . Assessment 1. Class III shortness of breath in patient with known history of tobacco use, COPD/emphysema but she is also at risk for underlying ischemic heart disease 2. History of tobacco use quit 3 years ago 3. History of centrilobular emphysema with alpha antitrypsin deficiency 4. Hypertension 5. Intermittent lower extremity edema 6. Borderline obesity Recommendation 1. Considering patient risk factors, worsening shortness of breath and age with history of prior tobacco use I recommend proceeding with an echocardiogram and Lexiscan myocardial perfusion study 2. Final recommendation to follow the result of the review of her diagnostic work-up 3. I review multiple pieces of information including her recent CT scan, pulmonary function test, lab work and remote echo 1. Plan Surgical History Problems History of Appendectomy History of Cataract surgery History of Colonoscopy History of Hysterectomy Current Meds Medication NameInstruction Alendronate Sodium 70 MG Oral TabletTAKE 1 TABLET ONCE WEEKLY. amLODIPine Besylate 5 MG Oral TabletTAKE 1 TABLET DAILY. Atorvastatin Calcium 40 MG Oral TabletTAKE 1 TABLET DAILY. Brovana 15 MCG/2ML Inhalation Nebulization SolutionINHALE THE CONTENTS OF 1 VIAL TWO TIMES DAILY IN THE MORNING AND EVENING VIA STANDARD JET NEBULIZER DIRECTED. Losartan Potassium 100 MG Oral TabletTAKE 1 TABLET DAILY. Meloxicam 7.5 MG Oral TabletTAKE 1 TABLET DAILY. Metoprolol Tartrate 25 MG Oral TabletTAKE 1 TABLET DAILY. Pantoprazole Sodium 40 MG Oral Tablet Delayed ReleaseTAKE 1 TABLET DAILY. Potassium Chloride Diane ER 20 MEQ Oral Tablet Extended ReleaseTAKE 1 TABLET DAILY. Pramipexole Dihydrochloride 0.5 MG Oral TabletTAKE 1 TABLET AT BEDTIME. Pulmicort 0.5 MG/2ML Inhalation SuspensionUSE 1 UNIT DOSE VIA NEBULIZER TWO TIMES A DAY Ventolin HFA 108 (90 Base) MCG/ACT Inhalation Aerosol SolutionINHALE 1 PUFF EVERY 4 HOURS NEEDED. Yupelri 175 MCG/3ML Inhalation SolutionINHALE 1 PUFFS Daily Reviewed consult from primary care physician note for updated medication list. Allergies Medication Codeine Derivatives Nausea; Recorded By: Stanton Shea; 01/26/2023 11:23:41 AM Social History Problems Former smoker (V15.82) (Z87.891) No alcohol use No caffeine use No illicit drug use Review of Systems Constitutional: not feeling tired. Eyes: no eyesight problems. ENT: no hearing loss and no nosebleeds. Cardiovascular: shortness of breath, but no intermittent leg claudication and as noted in HPI. Respiratory: no chronic cough and no shortness of breath. Gastrointestinal: no change in bowel habits and no blood in stools. Genitourinary: no urinary frequency. Skin: no skin rashes. Neurological: no sei (more content not included)... Normal [facility] Tobacco Screening.on 023 Adult depression screening assessment No [facility] [employer] 250 DO Work Phone: Fall risk assessment b) One or more fall s in the last year [facility] 250 DO Work Phone: Tobacco use status CPHS b) No [facility] 250 DO Work Phone: XR CHEST 2 Von 10-17-2022 XR CHEST 2 V EXAMINATION: XR CHES T 2 V HISTORY: Shortness of breath for 3 weeks and weakness COMPARISON: None. TECHNIQUE: PA and lateral chest x-rays FINDINGS: The lung parenchyma is free of consolidation or infiltrate. No pneumothorax or pleural effusion. The cardiac, mediastinal and hilar contours are normal. The visualized osseous structures exhibit no gross abnormality. IMPRESSION: No acute cardiopulmonary abnormality. Electronically authenticated by: FRANCIS ANDERSON Date: 2022-10-17 15:20 Normal [facility] CT LUNG CANCER SCREENINGon 0 08-17-2022 CT LUNG CANCER SCREENING EXAMINATION: CT LUNG CANCER SCREENING HISTORY: Nicotine dependence ; chronic shortness of breath, emphysema COMPARISON: CT chest 07/29/2021 TECHNIQUE: Axial, Coronal, and Sagittal images were created without the administration of IV contrast material. Dose reduction techniques were achieved by using automated exposure control and/or adjustment of mA and/or kV according to patient size and/or use of iterative reconstruction technique. FINDINGS: LUNGS: Mild emphysematous changes. No pulmonary nodules or infiltrates. PLEURA: No mass, effusion, or pneumothorax. VASCULATURE: No abnormality. ELVIRA: No mass or pathologic adenopathy. MEDIASTINUM: No mass or pathologic adenopathy. CARDIAC: No enlargement, pericardial thickening, or significant calcification. AORTA: No aneurysm or dissection. CHEST WALL: No mass or axillary adenopathy BONES: Several old, healed left rib fractures. LIMITED ABDOMEN: No suspicious findings. Limited images of the upper abdomen. OTHER: Negative. IMPRESSION: 1. Lung-RADS Category 1 Negative. No nodules and definitely benign nodules. Continue annual screening with LDCT in 12 months. 2. Mild emphysematous changes. 3. Old, healed left rib fractures. Electronically authenticated by: THERESA LUCIA Date: 2022-08-17 07:32 Normal [facility] PROF 14(COMP METB)on 022 Albumin [Mass/Vol] 3.9 g/dL Normal 3.4-5.0 [facility] Comment on above: Performed By: #### C MP #### [facility] [address] [place] [address] Dr. Shelby Rodriguez Albumin/Globulin [Mass ratio] 1.2 {ratio} Normal [facility] Comment on above: Performed By: #### C MP #### [facility] [address] [place] [address] Dr. Shelby Rodriguez ALP [Catalytic activity/Vol] 60 U/L Normal 46-116 [facility] Comment on above: Performed By: #### C MP #### [facility] [address] [place] [address] Dr. Shelby Rodriguez ALT [Catalytic activity/Vol] 35 U/L Normal 14-59 [facility] Comment on above: Performed By: #### C MP #### [facility] [address] [place] [address] Dr. Shelby Rodriguez Anion gap [Moles/Vol] 10.3 mmol/L Normal Th [facility] Comment on above: Performed By: #### C MP #### [facility] [address] [place] [address] Dr. Shelby Rodriguez AST [Catalytic activity/Vol] 22 U/L Normal 15-37 [facility] Comment on above: Performed By: #### C MP #### [facility] [address] [address] [address] Shelby Rodriguez Bilirubin [Mass/Vol] 0.5 mg/dL Normal 0.2-1.0 [facility] Comment on above: Performed By: #### C MP #### [facility] [address] [place] [address] Dr. Shelby Rodriguez Calcium [Mass/Vol] 9.4 mg/dL Normal 8.5-10.1 [facility] Comment on above: Performed By: #### C MP #### [facility] [address] [place] [address] Dr. Shelby Rodriguez Chloride [Moles/Vol] 105 mmol/L Normal 98-107 [facility] Comment on above: Performed By: #### C MP #### [facility] [address] [place] [address] Dr. Shelby Rodriguez CO2 [Moles/Vol] 30.5 mmol/L Normal 21.0-32.0 [facility] Comment on above: Performed By: #### C MP #### [facility] [address] [place] [address] Dr. Shelby Rodriguez Creatinine [Mass/Vol] 0.87 mg/dL Normal 0.55-1.02 [facility] Comment on above: Performed By: #### C MP #### [facility] [address] [address] [address] Shelby Rodriguez EGFR-AF NEPALESE >60 Normal >=60 [facility] Comment on above: Performed By: #### C MP #### [facility] [address] [place] [address] Dr. Shelby Rodriguez EGFR-NON AF NEPALESE >60 Normal >=60 [facility] Comment on above: Performed By: #### C MP #### [facility] [address] [address] [address] Shelby Rodriguez Globulin (S) [Mass/Vol] 3.2 g/dL Normal [facility] Comment on above: Performed By: #### C MP #### [facility] [address] [address] [address] Shelby Rodriguez Glucose [Mass/Vol] 122 mg/dL Critically high 74-106 [facility] Comment on above: Performed By: #### C MP #### [facility] [address] [address] [address] Shelby Rodriguez Potassium [Moles/Vol] 4.8 mmol/L Normal 3.5-5.1 [facility] Comment on above: Performed By: #### C MP #### [facility] [address] [place] [address] Dr. Shelby Rodriguez Protein [Mass/Vol] 7.1 g/dL Normal 6.4-8.2 [facility] Comment on above: Performed By: #### C MP #### [facility] [address] [place] [address] Dr. Shelby Rodriguez Sodium [Moles/Vol] 141 mmol/L Normal 136-145 [facility] Comment on above: Performed By: #### C MP #### [facility] [address] [place] [address] Dr. Shelby Rodriguez Urea nitrogen [Mass/Vol] 14.0 mg/dL Normal 7.0-18.0 [facility] Comment on above: Performed By: #### C MP #### [facility] [address] [place] [address] Dr. Shelby Rodriguez Urea nitrogen/Creatinine [Mass ratio] 16.1 mg/mg Normal [facility] Comment on above: Performed By: #### C MP #### [facility] [address] [place] [address] Dr. Shelby Rodriguez Vital Signs Date Time Vital Sign Value Performing Clinician Darcy rivers 03-30-2023 10:39-0400 Body height 149.86 cm Shaikh Jerrell Work Phone: [facility] DO Work Phone: 03-30-2023 10:39-0400 Body mass index (BMI) [Ratio] 26.86 kg/m2 Shaikh Pujawwad Work Phone: [facility] DO Work Phone: 03-30-2023 10:39-0400 Body surface area Derived from formula 1.55 m2 Shaikh Chikawad Work Phone: [facility] DO Work Phone: 03-30-2023 10:39-0400 Body weight 60.33 kg Shaikh Chikawad Work Phone: [facility] DO Work Phone: 03-30-2023 10:39-0400 Diastolic blood pressure 70 mm[Hg] Shaikh Chikawad Work Phone: [facility] DO Work Phone: 03-30-2023 10:39-0400 Heart rate 76 /min Shaikh Chikawad Work Phone: [facility] DO Work Phone: 03-30-2023 10:39-0400 Systolic blood pressure 122 mm[Hg] Shaikh Pujawwad Work Phone: [facility] DO Work Phone: 01-26-2023 11:30-0400 Diastolic blood pressure 92 mm[Hg] Khan Fawwad Work Phone: [facility] DO Work Phone: 01-26-2023 11:30-0400 Systolic blood pressure 164 mm[Hg] Khan Fawwad Work Phone: [facility] 250 DO Work Phone: 01-26-2023 11:29-0400 Body height 149.86 cm Shaikh Jerrell Work Phone: [facility] DO Work Phone: 01-26-2023 11:29-0400 Body mass index (BMI) [Ratio] 26.66 kg/m2 Shaikh Gavid Work Phone: [facility] DO Work Phone: 01-26-2023 11:29-0400 Body surface area Derived from formula 1.55 m2 Shaikh Jerrell Work Phone: [facility] DO Work Phone: 01-26-2023 11:29-0400 Body weight 59.88 kg Shaikh Jerrell Work Phone: [facility] DO Work Phone: 01-26-2023 11:29-0400 Diastolic blood pressure 100 mm[Hg] Shaikh Gavid Work Phone: [facility] DO Work Phone: 01-26-2023 11:29-0400 Heart rate 91 /min Shaikh Gavid Work Phone: [facility] DO Work Phone: 01-26-2023 11:29-0400 Systolic blood pressure 184 mm[Hg] Shaikh Chikawad Work Phone: [facility] DO Work Phone: Encounters Encounter Date Encounter Type Care Provider Facility Start: 08-23-2023 End: 08-23-2023 ambulatory KHAN JRERELL Not Available Start: 08-02-2023 End: 08-02-2023 ambulatory SHAIKH PUJAWWAD Not Available Start: 03-30-2023 Office outpatient vi sit 15 minutes Khanmariaa Gaticad Work Phone: [facility] DO Work Phone: Start: 03-30-[address] Benny Kang Facility: Start: 03-11-2023 Chart Update Gavid Work Phone: [facility] DO Work Phone: Start: 03-10-2023 Chart Update Shaikh Chikamaamed Work Phone: [facility] DO Work Phone: Start: 03-09-[address] Benny Kang Facility:[id number] Start: 01-26-2023 Office consultation new/estab patient 60 min Khanearnestine Gaticad Work Phone: [facility] DO Work Phone: Start: 01-26-[address] Benny Kang Facility: Start: 01-02-2023 ambulatory ÁLVARO HUTSON . Facility : Start: 10-17-2022 End: 10-18-2022 ambulatory ÁLVAROJOANIE HUTSON . Facility:[facility]1 Start: 08-16-2022 End: 08-17-2022 ambulatory ÁLVARO HUTSON . Facility:[facility] Start: 04-20-2022 End: 04-21-2022 ambulatory SHAIKH Earnestine ALLAN Facility:[facility] Procedures Date Procedure Procedure Detail Performing Clinician Start: 03-09-2023 Echocardiography Shaikh Jerrell Work Phone: Appendectomy Shaikh Gavid Work Phone: Cataract surgery Shaikh Chikaw ad Work Phone: Colonoscopy Shaikh Jerrell Work Phone: Hysterectomy Shaikh Gavid Work Phone: Surgical procedure o n eye proper Khanearnestine Allan Work Phone: Plan of Treatment Date Care Activity Detail Author Start: 10-05-2023 FUV, Provider: Benny Kang, Status: Pen, Time: 9:20 AM FUV, Provider: Benny Kang, Status: Pen, Time: 9:20 AM [facility] DO Work Phone: Start: 03-30-2023 FUV, Provider: Benny Kang, Status: Pen, Time: 10:30 AM FUV, Provider: Benny Kang, Status: Pen, Time: 10:30 AM [facility] DO Work Phone: Start: 03-09-2023 ECHO, Provider: JOHN PAUL CHANEL [facility] ULTRASOUND 01,[id number], Status: Pen, Time: 10:45 AM ECHO, Provider: CHUY [facility] ULTRASOUND 01,[id number], Status: Pen, Time: 10:45 AM [facility] DO Work Phone: Start: 03-09-2023 STRESS NUC, Provider : CHUY [facility] NUCLEAR 01,[id number], Status: Pen, Time: 8:30 AM STRESS NUC, Provider: CHUY [facility] NUCLEAR 01,[id number], Status: Pen, Time: 8:30 AM [facility] DO Work Phone: Immunizations Immunization Date Immunization Notes Care Provider Fa cilimicaela 10-27-2022 zoster vaccine recombinant Shaikh Pujaermias Work Phone: [facility] DO Work Phone: 08-27-2022 zoster vaccine recombinant Shaikh Pujaermias Work Phone: [facility] DO Work Phone: 06-03-2022 Fluzone High-Dose Quadrivalent 0.7 ML Intramuscular Suspension Prefilled Syringe Khan Fawwad Work Phone: [facility] 250 DO Work Phone: 08-03-2021 Pfizer-BioNTech COVI D-19 Vacc 30 MCG/0.3ML Intramuscular Suspension Fawwad Work Phone: [facility] 250 DO Work Phone: 06-02-2021 Fluzone High-Dose Quadrivalent 0.7 ML Intramuscular Suspension Prefilled Syringe Shaikh Pujawwad Work Phone: [facility] 250 DO Work Phone: 04-25-2021 diphtheria, tetanus toxoids and pertussis vaccine Shaikh Pujawwad Work Phone: [facility] 250 DO Work Phone: 12-23-2020 Pfizer-BioNTech COVI D-19 Vacc 30 MCG/0.3ML Intramuscular Suspension Shaikh Chikawad Work Phone: [facility] 250 DO Work Phone: 12-02-2020 Pfizer-BioNTech COVI D-19 Vacc 30 MCG/0.3ML Intramuscular Suspension Shaikh Pujawwad Work Phone: [facility] 250 DO Work Phone: 07-21-2014 influenza, seasonal, injectable Khan Pujawwad Work Phone: [facility] 250 DO Work Phone: 06-21-2013 influenza, seasonal, injectable Khan Fawwad Work Phone: [facility] 250 DO Work Phone: 08-31-2012 influenza, seasonal, injectable, preservative free Fawwad Work Phone: [facility] 250 DO Work Phone: Payers Date Payer Category Payer Medicare [id number] 1961 Private Health Insurance [facility] [id number] 1955 Unknown [id number] 2.16.84 [id number] 1955 Unknown [id number] 2.16.84 [id number] 1955 Unknown [id number] 2.16.84 [id number] 1955 Unknown [id number] 2.16.84 [id number] 1955 Unknown [id number] 2.16. [id number] 1955 Unknown [id number] 2.16. [id number] 1955 Unknown [id number] 2.16. [id number] 1955 Unknown [id number] 2.16.8 [id number] 1955 Unknown [id number] 2.16.84 [id number] 1955 Unknown [id number] [id number] Private Health Insurance [facility] [id number] Unknown Social History Date Type Detail Facility No caffeine use No caffeine use [facility] 250 DO Work Phone: History of Present illness Narrative 01-26-2023 Note Date & Type Note Facility 01-26-2023 History of Present illness Narrative Patient is here for cardiovascular evaluation for increasing shortness of breath. 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 Who had been complaining of worsening shortness of breath. The patient reports she quit smoking about 3-1/2 years ago. The patient denies chest pain. She described functional class III. There has been no previous cardiac work-up except remote echocardiogram. The patient denies lightheadedness, dizziness or syncope. She does describe intermittent lower extremity edema. There is no family history of premature coronary artery disease or sudden cardiac .Assessment1. Class III shortness of breath in patient with known history of tobacco use, COPD/emphysema but she is also at risk for underlying ischemic heart disease2. History of tobacco use quit 3 years ago3. History of centrilobular emphysema with alpha antitrypsin deficiency4. Hypertension5. Intermittent lower extremity edema6. Borderline obesityRecommendation1. Considering patient risk factors, worsening shortness of breath and age with history of prior tobacco use I recommend proceeding with an echocardiogram and Lexiscan myocardial perfusion study2. Final recommendation to follow the result of the review of her diagnostic work-up3. I review multiple pieces of information including her recent CT scan, pulmonary function test, lab work and remote echo1.[address] [id number] DO Work Phone: Chief complaint Narrative - Reported Note Date & Type Note Facility Chief complaint Narrative - Reported ANGELITA ADRIAN is being seen for a consultation for shortness of breath. [facility] 250 DO Work Phone: History of Present illness Narrative Note Date & Type Note Facility History of Present illness Narrative Patient is here for follow-up due to management for recent evaluation for shortness of breath. The patient is known to have history advanced lung disease. She underwent stress test and echocardiogram both appears to be reassuring. Patient denies any change in cardiac status or symptoms since last time I saw her.Assessment1. Class III shortness of breath in patient with known history of tobacco use, COPD/emphysema. Recent cardiac testing including echocardiogram and stress test are reassuring2. History of tobacco use quit 3 years ago3. History of centrilobular emphysema with alpha antitrypsin deficiency4. Hypertension5. Intermittent lower extremity edema6. Borderline obesityRecommendation1. I reviewed with her the results of her echocardiogram and stress test and reassured her2. I educated her about ischemic heart disease3. I review multiple pieces of information including her recent CT scan, pulmonary function test, lab work and remote echo4. We will see her back in 6 months and follow-up -[facility] DO Work Phone: Summary Purpose Family History No Family History Records FoundUnknown Family Member Name Dates Details Family history of malignant neoplasm: Mother, Father, Sibling(V16.9, Z80.9) Status:Active Family history of chronic ob structive pulmonary disease: Mother(V17.6, Z82.5) Status:Active Unknown Family Member Name Dates Details Family history of malignant neoplasm: Mother, Father, Sibling(V16.9, Z80.9) Status:Active Family history of chronic ob structive pulmonary disease: Mother(V17.6, Z82.5) Status:Active Unknown Family Member Name Dates Details Family history of malignant neoplasm: Mother, Father, Sibling(V16.9, Z80.9) Status:Active Family history of chronic ob structive pulmonary disease: Mother(V17.6, Z82.5) Status:Active Unknown Family Member Name Dates Details Family history of malignant neoplasm: Mother, Father, Sibling(V16.9, Z80.9) Status:Active Family history of chronic ob structive pulmonary disease: Mother(V17.6, Z82.5) Status:Active Advance Directives No Advanced Directives Records FoundNo Advanced Directives Records FoundNo Advanced Directives Records FoundNo Advanced Directives Records FoundNo Advanced Directives Records Found Chief Complaint ANGELITA ADRIAN is being seen for results mpl and echo. Additional Source Comments INFORMATION SOURCE (unrecogn ized section and content) DATE CREATED AUTHOR 12/23/2022 [facility] DATE CREATED AUTHOR AUTHOR'S ORGANIZ ATION 03/31/2023 [facility] DATE CREATED AUTHOR AUTHOR'S ORGANIZ ATION 03/31/2023 [employer] DATE CREATED AUTHOR AUTHOR'S ORGANIZ ATION 04/13/2023 [facility] DATE CREATED AUTHOR AUTHOR'S ORGANIZ ATION 08/24/2023 [facility] FOR RECORDS PERTAINING TO PATIENTS WHO ARE OR HAVE BEEN ENROLLED IN A CHEMICAL DEPENDENCY/SUBSTANCEABUSE PROGRAM, SOME INFORMATION MAY BE OMITTED. This clinical summary was aggregated from multiple sources. Caution should be exercised in using it in the provision of clinical care. This summary normalizes information from multiple sources, and as a consequence, information in this document may materially change the coding, format and clinical context of patient data. In addition, data may be omitted in some cases. CLINICAL DECISIONS SHOULD BE BASED ON THE PRIMARY CLINICAL RECORDS. [facility] [facility]. provides no warranty or guarantee of the accuracy or completeness of information in this document.
--- NOTE | 2023-09-09 10:41 | ED_ITS ---
HPI - URI/Sore Throat General Chief Complaint: Upper Respiratory Infection Stated Complaint: COVID POSITIVE Time Seen by Provider: 09/09/23 09:23 Source: patient Limitations: no limitations History of Present Illness HPI Narrative: 68-year-old female presents for cough. She is coughing up yellow to green colored phlegm. Two and half weeks ago she was hospitalized with Covid here. She finished her Levaquin. She took a Covid test at home and it was positive. She hasn't had a fever or hemoptysis. She has an appointment with her shipping associate tomorrow. Related Data Home Medications Medication Instructions Recorded Confirmed alendronate 70 mg tablet 70 mg PO .ONCE WEEKLY 08/14/23 09/09/23 amlodipine 5 mg tablet 5 mg PO QDAY 08/14/23 09/09/23 arformoterol 15 mcg/2 mL solution 15 mcg inhalation Q12H 08/14/23 08/14/23 for nebulization atorvastatin 40 mg tablet 40 mg PO BEDTIME 08/14/23 09/09/23 budesonide 0.5 mg/2 mL suspension 0.5 mg inhalation BID 08/14/23 09/09/23 for nebulization cholecalciferol (vitamin D3) 50 mcg PO DAILY 08/14/23 09/09/23 losartan 100 mg tablet 100 mg PO DAILY 08/14/23 09/09/23 magnesium 200 mg tablet 200 mg PO DAILY 08/14/23 09/09/23 meloxicam 7.5 mg tablet 7.5 mg PO DAILY 08/14/23 09/09/23 multivitamin 1 tab PO DAILY 08/14/23 09/09/23 pantoprazole 40 mg tablet,delayed 40 mg PO DAILY 08/14/23 09/09/23 release potassium gluconate 595 mg (99 mg) 595 mg PO DAILY 08/14/23 09/09/23 tablet pramipexole 0.5 mg tablet 0.5 mg PO BEDTIME 08/14/23 09/09/23 revefenacin 175 mcg/3 mL solution 175 mcg inhalation DAILY 08/14/23 09/09/23 for nebulization (Yupesidneyi) Previous Rx's Medication Instructions Recorded metoprolol succinate 100 mg 100 mg PO DAILY #30 tabs 08/16/23 tablet,extended release 24 hr azithromycin 250 mg tablet See Rx Instructions PO .COMPLEX #6 09/09/23 (Zithromax Z-Uri) tabs Allergies Allergy/AdvReac Type Severity Reaction Status Date / Time codeine AdvReac Severe Nausea Verified 08/14/23 10:22 Review of Systems ROS Narrative A ten point review of systems is negative except as noted above. [facility] Medical History (Updated 09/09/23 @ 10:39 by Betito Peguero MD) Anxiety and depression ?F41.9 - Anxiety disorder, unspecified (ICD-10) ?F32.A - Depression, unspecified (ICD-10) Restless legs ?G25.81 - Restless legs syndrome (ICD-10) Osteoporosis ?M81.0 - Age-related osteoporosis without current pathological fracture (ICD- 10) Hyperlipidemia ?E78.5 - Hyperlipidemia, unspecified (ICD-10) HTN (hypertension) ?I10 - Essential (primary) hypertension (ICD-10) COPD (chronic obstructive pulmonary disease) ?J44.9 - Chronic obstructive pulmonary disease, unspecified (ICD-10) 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 - Disease of appendix, unspecified (ICD-10) Normal colonoscopy Hernia of abdominal wall ?K43.9 - Ventral hernia without obstruction or gangrene (ICD-10) Cataract ?H26.9 - Unspecified cataract (ICD-10) Surgical History (Updated 08/14/23 @ 13:21 by Antoinette Ellis) History of partial hysterectomy ?Z90.711 - Acquired absence of uterus with remaining cervical stump (ICD-10) Social History (Updated 08/14/23 @ 13:22 by Antoinette Ellis) Smoking status: Former smoker Non-prescribed substance use: denies use Previous occupational history: retired Highest level of school completed/degree received: 9th grade Exam Narrative Exam Narrative: Nurses note and vital signs reviewed and patient is not hypoxic. General: The patient appears well and in no apparent distress. Patient is resting comfortably on cart. Skin: Warm, dry, no pallor noted. There is no rash noted. Head: Normocephalic, atraumatic Eye: Normal conjunctiva, no drainage Ears, Nose, Mouth, and Throat: oral mucosa is moist. Nares patent. Cardiovascular: Regular Rate and Rhythm Respiratory: Patient is in no distress, no accessory muscle use, lungs are clear to auscultation, no wheezing, rales or rhonchi Back: non-tender GI: soft and nontender Musculoskeletal: The patient has no evidence of calf tenderness, no pitting edema, symmetrical pulses noted bilaterally Neurological: A&O, normal speech Psychiatric: Cooperative Constitutional Vital Signs, click to edit/add: Last Vital Signs Temp 98.6 F 09/09/23 09:23 Pulse 63 09/09/23 10:30 Resp 22 09/09/23 10:30 BP 115/62 09/09/23 10:30 Pulse Ox 96 09/09/23 10:20 O2 Del Method Room Air 09/09/23 10:08 Course Vital Signs Vital signs: Vital Signs Temperature 98.6 F 09/09/23 09:23 Pulse Rate 73 09/09/23 09:23 Respiratory Rate 26 H 09/09/23 09:23 Blood Pressure 137/59 09/09/23 09:23 Pulse Oximetry 99 09/09/23 09:23 Oxygen Delivery Method Room Air 09/09/23 09:23 Temperature 98.6 F 09/09/23 09:23 Pulse Rate 63 09/09/23 10:30 Respiratory Rate 22 09/09/23 10:30 Blood Pressure 115/62 09/09/23 10:30 Pulse Oximetry 96 09/09/23 10:20 Oxygen Delivery Method Room Air 09/09/23 10:08 MDM - URI/Sore Throat MDM Narrative Medical decision making narrative: Her positive Covid test today is likely a result of her having Covid two weeks ago. She is coughing up yellow to green colored phlegm and there is no evidence of pneumonia. She is placed on Zithromax by mouth to keep her appointment with her shipping associate tomorrow. Treatment diagnosis and follow-up were discussed with the patient. Differential Diagnosis Differential diagnosis: Likely upper respiratory infection and other (pneumonia) Lab Data Attestation: I reviewed the patient's lab results. Labs: Lab Results 09/09/23 Range/Units 09:54 WBC 3.7 L (4.0-11.0) 10^3/uL RBC 3.94 L (4.20-5.40) 10^6/uL Hgb 11.5 L (12.0-16.0) g/dL Hct 35.5 L (36.0-48.0) % MCV 90.1 (81.0-99.0) fL MCH 29.2 (26.7-34.0) pg MCHC 32.4 (29.9-35.2) g/dL RDW 14.6 (11.0-15.0) % Plt Count 194 (150-450) 10^3/uL MPV 9.4 L (9.5-13.5) fL Neut % (Auto) 58.8 (43.0-75.0) % Lymph % (Auto) 20.6 (20.5-60.0) % [place] % (Auto) 13.0 H (1.7-12.0) % Eos % (Auto) 6.8 (0.9-7.0) % Baso % (Auto) 0.5 (0.2-2.0) % Neut # (Auto) 2.2 (1.4-6.5) 10^3/uL Lymph # (Auto) 0.8 L (1.2-3.8) 10^3/uL [place] # (Auto) 0.5 (0.3-0.8) 10^3/uL Eos # (Auto) 0.3 (0.0-0.7) 10^3/uL Baso # (Auto) 0.0 (0.0-0.1) 10^3/uL Abs Immat Gran (auto) 0.01 (0.00-0.03) 10^3/uL Imm/Tot Granulo (auto) 0.3 (0.0-0.5) % Sodium 136 (136-145) mmol/L Potassium 3.9 (3.5-5.1) mmol/L Chloride 101 (98-107) mmol/L Carbon Dioxide 26.5 (21.0-32.0) mmol/L Anion Gap 12.4 BUN 6.0 L (7.0-18.0) mg/dL Creatinine 0.78 (0.55-1.02) mg/dL Est GFR ( Amer) >60 (>=60) Est GFR (Non-Af Amer) >60 (>=60) BUN/Creatinine Ratio 7.7 Glucose 110 H (74-106) mg/dL Calcium 9.0 (8.5-10.1) mg/dL Imaging Data Chest x-ray: Radiologist's impression: ITS Impressions Chest X-Ray 09/09/23 09:42 IMPRESSION: 1. The cardiomediastinal contours are stable. Heart size is top normal. Atherosclerotic change of aorta is identified. 2. Pulmonary hyperinflation with background COPD pattern/emphysema again noted. No acute cardiopulmonary process in the interval. 3. No new dense consolidation, effusion, edema, failure or pneumothorax. Old healed left lower rib fracture deformity again noted. Electronically authenticated by: LULI SANCHEZ Date: 09/09/2023 10:26 Discharge Plan Discharge Chief Complaint: Upper Respiratory Infection Clinical Impression: Upper respiratory infection Patient Disposition: Home, Self-Care Time of Disposition Decision: 10:39 Condition: Good Mode of Transportation: Private Vehicle Prescriptions / Home Meds: New azithromycin [Zithromax Z-Uri] 250 mg tablet See Rx Instructions .ROUTE .COMPLEX Qty: 6 0RF Rx Instructions: For 250 mg dose pack: take 500 mg today (day 1), then 250 mg for 4 days (days 2-5) No Action alendronate 70 mg tablet 70 mg PO .ONCE WEEKLY atorvastatin 40 mg tablet 40 mg PO BEDTIME amlodipine 5 mg tablet 5 mg PO QDAY losartan 100 mg tablet 100 mg PO DAILY meloxicam 7.5 mg tablet 7.5 mg PO DAILY pantoprazole 40 mg tablet,delayed release (DR/EC) 40 mg PO DAILY pramipexole 0.5 mg tablet 0.5 mg PO BEDTIME Rx Instructions: 2 hours before bedtime potassium gluconate 595 mg (99 mg) tablet 595 mg PO DAILY cholecalciferol (vitamin D3) 50 mcg PO DAILY magnesium 200 mg tablet 200 mg PO DAILY multivitamin Tablet 1 tab PO DAILY Yupelri 175 mcg/3 mL solution for nebulization 175 mcg inhalation DAILY arformoterol 15 mcg/2 mL solution for nebulization 15 mcg inhalation Q12H budesonide 0.5 mg/2 mL suspension for nebulization 0.5 mg inhalation BID metoprolol succinate 100 mg tablet extended release 24 hr 100 mg PO DAILY Qty: 30 0RF Instructions: Upper Respiratory Infection (ED) Stand Alone Forms: Portal Instructions Referrals: Shaikh Allan MD [Primary Care Provider] - 1 week
== END 2023-09-09 10:49 | disposition home or self-care (01) ==
PROVIDERS: Emergency Provider Emergency Medicine; PCP Internal Medicine
DX: J06.9 Acute upper respiratory infection, unspecified (principal); Z86.16 Personal history of COVID-19; F41.9 Anxiety disorder, unspecified; F32.A Depression, unspecified; G25.81 Restless legs syndrome; M81.0 Age-related osteoporosis without current pathological fracture; E78.5 Hyperlipidemia, unspecified; I10 Essential (primary) hypertension; J44.9 Chronic obstructive pulmonary disease, unspecified; Z90.711 Acquired absence of uterus with remaining cervical stump; Z79.899 Other long term (current) drug therapy; Z87.891 Personal history of nicotine dependence
CPT/HCPCS: 36415; 71045; 80048; 85025; 93005; 99285

== ENCOUNTER 2023-10-17 07:02 | Outpatient (RCR) | payer MEDICARE, SELFPAY ==
--- NOTE | 2023-10-08 13:37 | CR1_ITS ---
[facility] Test Date: 2023-10-08 Pat Name: ANGELITA ADRIAN Department: Room: - Gender: Female [employer]: : 1955 Requested By: [id number] Order Number: [id number] Reading MD: ENRIQUE SHAW Interpretive Statements Session Date: Electronically Signed On 10-08-2023 23:37:52 EST by ENRIQUE SHAW
--- NOTE | 2023-11-05 07:46 | CR1_ITS ---
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
--- NOTE | 2023-11-05 14:24 | PC.NURSE ---
Follow up with patient Called patient to follow up due to being out for 1 month for oral surgery. Patient states she is feeling better but not well enough to return to rehab. She is having difficulty eating with the dentures and has some pain still following the teeth removal. She plans to return within 2 weeks and will reach out to schedule.
--- NOTE | 2024-01-03 12:27 | CR1_ITS ---
[facility] Date: 2024-01-03 Pat Name: ANGELITA ADRIAN Department: Room: - Gender: Female Jde Developer: : 1955 Requested By: [id number] Order Number: [id number] Reading MD: ENRIQUE SHAW Interpretive Statements Session Date: Electronically Signed On 01-03-2024 19:30:40 EDT by ENRIQUE SHAW
== END 2024-01-03 12:28 | disposition home or self-care (01) ==
LOC: CR 07:02
PROVIDERS: PCP Internal Medicine; Visit Provider Internal Medicine
DX: J43.9 Emphysema, unspecified (principal)
CPT/HCPCS: 94625

== ENCOUNTER 2023-12-31 21:01 | Outpatient (REF) | payer MEDICARE, SELFPAY ==
--- OUTSIDE RECORDS SUMMARY | 2023-12-31 21:17 | XMS_ITS | CCD ---
Author Organization [facility] Care Team Providers Care Lan Engineer Name Role Phone FACAROL, KHAN H Admitting Unavailable FAWWAD, KHAN H Attending Unavailable FAWWAD, KHAN H Primary Care Unavailable FAWWAD, KHAN H [...] ble Traboulssi, Dr. Velasquez Attending Unavaila ble Traboulangeles, Dr. Velasquez Referring Unavaila ble Traboulangeles, Dr. Velasquez Attending Unavaila ble Joreg Luis, Dr. Velasquez Attending Unavaila raul Allan MD, Khan Primary Care Provider [phone] Shaikh Allan MD Primary Care Provider SHAIKH ALLAN Attending Unavailable FAWSHAIKH SALAZAR Attending Unavailable FAWWAAlvin, Attending Unavailable FAWWAAlvin, KHAN Attending Unavailable Shaikh Allan MD Primary Care Provider [phone] BENNY KANG Attending Unavailable SHAIKH ALLAN Primary Care Unavailable Allergies Allergy Classification Reported Allergen(s) Allergy Type Date of Onset Reaction(s) Facility (2 sources) Codeine; 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: [CODEINE] Drug Allergy 7 [facility] Repository (7 sources) Codeine; 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: [Codeine Derivatives] Drug Allergy 9 Nausea Only, GI intolerance, Other, Nausea/vomiting [facility] Medications Current Medications Medication Drug Class(es) Dates Sig (Normalized) Sig (Original) [id number] 200 actuat albuterol 0.09 mg/actuat metered dose inhaler (8 sources) beta2-Adrenergic Agonist Start: 10-19-2022 take 2 puff(s) by inhalation every four hours for wheezing albuterol 90 mcg/actuation inhaler Inhale 2 puffs every 4 hours if needed for wheezing or shortness of breath. 10/19/2022 Active Ventolin HFA 108 (90 Base) MCG/ACT inhaler Inhale 2 puffs in the morning and 2 puffs at noon and 2 puffs in the evening and 2 puffs before bedtime. 0 Active take 1 puff(s) by in halation every four hours as needed Ventolin HFA 108 (90 Base) MCG/ACT Inhalation Aerosol Solution INHALE 1 PUFF EVERY 4 HOURS NEEDED. Quantity: 0 Refills: 0 Ordered: 26-Jan-2023 DO Active alendronic acid 70 mg oral tablet (8 sources) Bisphosphonate Start: 05-28-2023 take 1 tablet by mouth every week alendronate (Fosamax) 70 mg tablet Take 1 tablet (70 mg) by mouth 1 (one) time per week. 05/28/2023 Active amLODIPine 5 mg oral tablet (8 sources) Dihydropyridine Calcium Channel Frederick Start: 05-28-2023 take 1 tablet by mouth once daily amLODIPine (Norvasc) 5 mg tablet Take 1 tablet (5 mg) by mouth once daily. 05/28/2023 Active arformoterol 0.0075 mg/ml inhalation solution (7 sources) beta2-Adrenergic Agonist arformoterol (Brovana) 15 MCG/2ML nebulizer solution Take 15 mcg by nebulization in the morning and 15 mcg before bedtime. 0 Active take 1 dose by inhal ation twice daily in the morning Brovana 15 MCG/2ML Inhalation Nebulizati on Solution INHALE THE CONTENTS OF 1 VIAL TWO TIMES DAILY IN THE MORNING AND EVENING VIA STANDARD JET NEBULIZER DIRECTED. Quantity: 0 Refills: 0 Ordered: 26-Jan-2023 DO Active atorvastatin 40 mg oral tablet (8 sources) HMG-CoA Reductase Inhibitor Start: 05-28-2023 take 1 tablet by mouth once daily at bedtime atorvastatin (Lipitor) 40 mg tablet Take 1 tablet (40 mg) by mouth once daily at bedtime. 05/28/2023 Active biotin 5 mg oral capsule (3 sources) take 1 capsule by mouth once daily biotin (Biotin 5000) 5 MG capsule Take 5 mg by mouth 1 (one) time each day at the same time 0 Active budesonide 0.25 mg/ml inhalation suspension (8 sources) Corticosteroid take 2 mL by mouth twice daily budesonide (Pulmicort) 0.5 mg/2 mL nebulizer solution Take 2 mL (0.5 mg) by nebulization 2 times a day. Rinse mouth with water after use to reduce aftertaste and incidence of candidiasis. Do not swallow. Active budesonide (Pulm icort) 0.5 MG/2ML nebulizer solution Take 0.5 mg by nebulization in the morning and 0.5 mg before bedtime. 0 Active take 1 [IU] by inhalation twice daily Pulmicort 0.5 MG/2ML Inhalation Suspension USE 1 UNIT DOSE VIA NEBULIZER TWO TIMES A DAY Quantity: 0 Refills: 0 Ordered: 26-Jan-2023 DO Active cholecalciferol 0.05 mg oral tablet (3 sources) Vitamin D cholecalciferol (Vitamin D-3) 50 MCG (1999 UT) tablet Take 50 tablets by mouth 1 (one) time each day at the same time 0 Active escitalopram 20 mg oral tablet (5 sources) Serotonin Reuptake Inhibitor Start: 09-24-19 24 End: 12-23-19 24 take 1 tablet by mouth in the morning escitalopram (Lexapro) 20 MG tablet Indications: Current moderate episode of major depressive disorder without prior episode (HCC) (CMS/HCC) Take 1 tablet (20 mg) by mouth in the morning. 30 tablet 2 09/24/2023 12/23/2023 Active Start: 08-23-2023 End: 11-21-2023 take 1 tablet by mouth in the morning escitalopram (Lexapro) 10 MG tablet Indications: Current moderate episode of major depressive disorder without prior episode (HCC) (CMS/HCC) Take 1 tablet (10 mg) by mouth in the morning. 90 tablet 0 08/23/2023 09/24/2023 Discontinued fluticasone propionate 0.05 mg/actuat metered dose nasal spray (3 sources) Corticosteroid take 2 spray(s) nasal route in the morning fluticasone (Flonase Allergy Relief) 50 MCG/ACT nasal spray Administer 2 sprays into each nostril in the morning. 0 Active gabapentin 300 mg oral capsule (3 sources) Anti-epileptic Agent Start: 08-07-20 End: 11-05-19 take 1 capsule by mouth at bedtime gabapentin (Neurontin) 300 MG capsule Indications: Restless legs syndrome Take 1 capsule (300 mg) by mouth at bedtime 90 capsule 0 08/07/2023 11/05/2023 Active 200 actuat ipratropium bromide 0.017 mg/actuat metered dose inhaler (3 sources) Anticholinergic ipratropium (Atrovent HFA) 17 MCG/ACT inhaler Inhale 2 puffs in the morning and 2 puffs at noon and 2 puffs in the evening and 2 puffs before bedtime. 0 Active losartan potassium 100 mg oral tablet (8 sources) Angiotensin 2 Receptor Frederick Start: 05-28-20 End: 11-21-19 take 1 tablet by mouth in the morning losartan (Cozaar) 100 MG tablet Indications: Primary hypertension (CMS/HCC) Take 1 tablet (100 mg) by mouth in the morning. 90 tablet 0 08/23/2023 11/21/2023 Active take 1 tablet by mouth once pardeep y Losartan Potassium 100 MG Oral Tablet TAKE 1 TABLET DAILY. Quantity: 0 Refills: 0 Ordered: 26-Jan-2023 DO Active meloxicam 7.5 mg oral tablet (8 sources) Nonsteroidal Anti-inflammatory Drug Start: 05-28-2023 take 1 tablet by mouth once daily meloxicam (Mobic) 7.5 mg tablet Take 1 tablet (7.5 mg) by mouth once daily. 05/28/2023 Active menthol 100 mg/ml topical cream (3 sources) Menthol, Topical Analgesic, (Biofreeze) 10 % cream Apply 10 % topically 1 (one) time each day at the same time 0 Active 24 hr metoprolol succinate 100 mg extended release oral tablet (9 sources) beta-Adrenergic Frederick Start: 09-24-2023 End: 12-23-2023 take 1 tablet by mouth every twenty-four hours in the morning metoprolol succinate XL (Toprol-XL) 100 MG 24 hr tablet Indications: Primary hypertension (CMS/HCC) Take 1 tablet (100 mg) by mouth in the morning. Do not crush or chew.. 90 tablet 0 09/24/2023 12/23/2023 Active Start: 05-28-2023 take 1 tablet by marguerite th twice daily metoprolol tartrate (Lopressor) 25 mg tablet Take 1 tablet (25 mg) by mouth 2 times a day. 05/28/2023 Active End: 09-24-2023 take 1 tablet by mouth every eight hours metoprolol tartrate (Lopressor) 25 MG tablet Take 25 mg by mouth every 8 (eight) hours 0 09/24/2023 Discontinued (Dose adjustment) take 1 tablet by marguerite th once daily Metoprolol Tartrate 25 MG Oral Tablet TAKE 1 TABLET DAILY. Quantity: 0 Refills: 0 Ordered: 26-Jan-2023 DO Active pantoprazole 40 mg delayed release oral tablet (8 sources) Proton Pump Inhibitor Start: 05-28-2023 take 1 tablet by mouth once daily pantoprazole (ProtoNix) 40 mg EC tablet Take 1 tablet (40 mg) by mouth once daily. 05/28/2023 Active microencapsulated potassium chloride 20 meq extended release oral tablet (8 sources) take 1 tablet by mouth once daily potassium chloride CR 20 mEq ER tablet Take 1 tablet (20 mEq) by mouth once daily. Do not crush or chew. Active take 20 mEq by mouth in the morn ing potassium chloride (Klor-Con) 20 MEQ packet Take 20 mEq by mouth in the morning. 0 Active pramipexole dihydrochloride 0.75 mg oral tablet (8 sources) Nonergot Dopamine Agonist Start: 08-02-2023 End: 10-01-2023 take 1 tablet by mouth at bedtime pramipexole (Mirapex) 0.75 MG tablet Indications: RLS (restless legs syndrome) Take 1 tablet (0.75 mg) by mouth at bedtime 30 tablet 1 08/02/2023 10/01/2023 Active Start: 05-28-2023 take 1 tablet by marguerite th once daily pramipexole (Mirapex) 0.5 mg tablet Take 1 tablet (0.5 mg) by mouth once daily. 05/28/2023 Active take 1 tablet by marguerite th at bedtime Pramipexole Dihydrochloride 0.5 MG Oral Tablet TAKE 1 TABLET AT BEDTIME. Quantity: 0 Refills: 0 Ordered: 26-Jan-2023 DO Active revefenacin 0.0583 mg/ml inh alation solution (8 sources) revefenacin (Yup elri) 175 mcg/3 mL nebulizer solution Take 3 mL (175 mcg) by nebulization once daily. Active revefenacin (Yup elri) 175 MCG/3ML nebulizer solution Take 175 mcg by nebulization in the morning. 0 Active take 1 puff(s) by inhalation onc e daily Yupelri 175 MCG/3ML Inhalation Solution INHALE 1 PUFFS Daily Quantity: 0 Refills: 0 Ordered: 26-Jan-2023 DO Active vitamin b12 1 mg extended release oral tablet (3 sources) Vitamin B12 Cyanocobalamin ( Vitamin B12) 1000 MCG tablet controlled-release Take 1,000 mg by mouth 1 (one) time each day at the same time 0 Active Problems Active Problems Problem Classification Problem Date Documented Date Episodic/Chronic Chronic obstructive pulmonary disease and bronchiectasis (11 sources) Centriacinar emphysema; 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: [Other emphysema] Onset: 08-02-2023 08-02-2023 Chronic Disorders of lipid metabolism (11 sources) Mixed hyperlipidemia; 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: [Mixed hyperlipidemia] Onset: 08-02-2023 08-02-2023 Chronic Esophageal disorders (3 sources) Gastroesophageal reflux disease without esophagitis; 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: [Gastro-esophageal reflux disease without esophagitis] Onset: 08-02-2023 08-02-2023 Chronic Essential hypertension (16 sources) Essential (primary) hypertension; 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: [Hypertensive disorder] Onset: 04-20-2022 Chronic Fluid and electrolyte disorders (3 sources) Hypokalemia; 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: [Hypokalemia] Onset: 08-02-2023 08-02-2023 Episodic Mood disorders (5 sources) Moderate major depression, single episode; 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: [Major depressive disorder, single episode, moderate] Onset: 08-02-2023 08-02-2023 Chronic Other hereditary and degenerative nervous system conditions (3 sources) Restless legs; 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: [Restless legs syndrome] Onset: 08-02-2023 08-02-2023 Chronic Other lower respiratory disease (6 sources) Dyspnea; 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: [Other respiratory abnormalities] Onset: 11-28-2023 11-28-2023 Episodic Other lower respiratory disease (3 sources) Shortness of breath; 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: [Shortness of breath] Onset: 03-09-2023 Episodic Other lower respiratory disease (2 sources) Dyspnea, unspecified; 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: [Dyspnea, unspecified] Onset: 03-09-2023 Episodic Other lower respiratory disease (3 sources) Dyspnea on exertion; 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: [Other forms of dyspnea] Onset: 08-02-2023 08-02-2023 Episodic Other nutritional; endocrine; and metabolic disorders (6 sources) Prifi-7-mikbowjlsyw deficiency; 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: [Fsbvp-8-nzjythbkjvl deficiency] Onset: 08-30-2023 11-28-2023 Chronic Other nutritional; endocrine; and metabolic disorders (2 sources) Iwido-3-xqbkqmeisjs deficiency; 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: [Atnvh-7-ypchcgmyqtv deficiency (Multi)] Onset: 08-30-2023 Chronic Other nutritional; endocrine; and metabolic disorders (6 sources) Overweight in adulthood with body mass index of 25 or more but less than 30; 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: [Overweight] Onset: 11-28-2023 11-28-2023 Episodic Other nutritional; endocrine; and metabolic disorders (2 sources) Body mass index (BMI) 25.0-25.9, adult; 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: [Body mass index (BMI) 25.0-25.9, adult] Onset: 11-28-2023 Episodic Screening and history of mental health and substance abuse codes (15 sources) Personal history of nicotine dependence; 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: [Ex-smoker] Onset: 08-16-2022 Episodic Unclassified (3 sources) COUGH, UNSPECIFIED; 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: [COUGH, UNSPECIFIED] Onset: 10-19-2022 Past or Other Problems Problem Classification Problem Date Documented Da te Episodic/Chronic Mood disorders (3 sources) Mood disorders Onset: 08-02-2023 08-02-2023 Unclassified (1 source) COUGH, UNSPECIFIED; 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: [COUGH, UNSPECIFIED] Onset: 10-17-2022 Unclassified (1 source) Onset: 11-28-2023 11-28-2023 Results Test Name Value Interpretation Reference Range Facility Office Visit (Cardiology)on 03-30-2023 Follow-up visit Diagnoses/Problems Assessed Dyspnea (786.09) (R06.00) Qivao-7-qwkvkptskws 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) Centrilobular emphysema (492.8) (J43.2) Former smoker (V15.82) (Z87.891) HTN (hypertension) (401.9) (I10) Mixed hyperlipidemia (272.2) (E78.2) Overweight with body mass index (BMI) of 26 to 26.9 in adult (278.02,V85.22) (E66.3,Z68.26) Orders Overweight with body mass index (BMI) of 26 to 26.9 in adult Healthy Weight Tips; Status:Complete - Retrospective Authorization; Done: [id number] Some eating tips that can help you lose weight.; Status:Complete - Retrospective Authorization; Done: [id number] SocHx: Former smoker Tobacco Use Screening; Status:Complete; Done: [id number] Patient Instructions Please bring all medicines, vitamins, [...] echocardiogram and pharmacologic stress test Chief Complaint SVETLANA SILVA is being seen for results mpl and [...] negative for complaint. Vitals Vital Signs Recorded: [id number] 10:39AM Heart Rate76, L Radial Wmlxhvpx618, LUE, Sitting Qlzmvreag55, LUE, Sitting Height4 ft 11 in Yzzrqd580 lb BMI Enipmontxz35.86 kg/m2 BSA Calculated1.55 Tobacco Useb) No PHQ-2 [...] Pulmonary: n (more content not included)... Normal [employer] Tobacco Screening.on 023 Adult depression screening assessment No [place] [address] DO Work Phone: Fall risk assessment a) No falls within the last year [facility] 250 DO Work Phone: Tobacco use status [facility] b) No [facility] 250 DO Work Phone: Echocardiogramon 03-09-[address], [address] [place] [address] TRANSTHORACIC ECHOCARDIOGRAM REPORT Patient Name: SVETLANA SILVA Edgar Physician: [id number] Benny Kang MD Study Date: 03/09/2023 Referring Physician: BENNY KANG MRN/PID: [id number] PCP: Accession/Order#: [id number] Department Location: [facility] Date of : 1955 Fellow: Gender: F Nurse: Admit Date: Redeye Gunner: Fatuma Vidales RDCS T Height: 149.86 cm CC Report to: Weight: 59.88 kg Study Type: Echocardiogram BSA: 1.55 m2 Blood Pressure: 140 /78 mmHg Diagnosis/ICD: R06.00-Dyspnea, unspecified Indication: HTN, Hyperlipidemia, Former Smoker, Centrilobular Emphysema, Alpha-1 Antitrysin Deficiency, Overweight Procedure/CPT: Echo Complete w Full [id number] Study Detail: The following Echo studies were [...] 0.8 m/s (0.6-0.9m/s) PV Max P.7 mmHg [id number] Benny Kang MD Electronically signed on 03/10/2023 at 4:28:00 PM Final Normal [facility] CARDIAC STRESS/REST INJE CTIONon 03-09-2023 [facility] CARDIAC STRESS/REST INJECTION Patient Name: SVETLANA SILVA STUDY: MYOCARDIAL PERFUSION STRESS TEST WITH LEXISCAN Performing facility: [facility], [address] [place] [address], [address], [place] [address] [facility] Provider: Benny Kang MD PCP: Dr. David Allan Supervising provider: Polina Palomino MD, [facility] INDICATION: Dyspnea HISTORY: Gender: F; Age: 67 y/o ; Height: 0 cm; Weight: 0 kg. High Cholesterol; HTN; SOB; COPD; Emphysema Quit smoking 3.5 years ago. COMPARISON: No comparison. ACCESSION NUMBER(S): [id number]; [id number]; [id number] ORDERING CLINICIAN: BENNY KANG TECHNIQUE: ONE DAY [...] comparison. 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 : dyspnea Overweight with body mass index (BMI) of 26 to 26.9 in adult Healthy Weight Tips; Status:Complete; Done: 26Jan2023 Some eating tips that can help you lose weight.; Status:Complete; Done: 26Jan2023 SocHx: Former smoker Tobacco Use Screening; Status:Complete; Done: 26Jan2023 Patient Instructions Please bring all medicines, vitamins, [...] given Follow up after testing Chief Complaint SVETLANA SILVA is being seen for a consultation for [...] no sei (more content not included)... Normal [employer] Tobacco Screening.on 023 Adult depression screening assessment No [facility] [employer] DO Work Phone: Fall risk assessment b) One or more fall s in the last year [facility] 250 DO Work Phone: Tobacco use status [facility]PHS b) No [facility] [employer] DO Work Phone: XR CHEST 2 Von [...] by: FRANCIS ANDERSON Date: 2022-10-17 15:20 Normal [facility] CT LUNG CANCER SCREENINGon 0 [...] by: THERESA LUCIA Date: 2022-08-17 07:32 Normal [facility] PROF 14(COMP METB)on 022 Albumin [Mass/Vol] 3.9 g/dL Normal 3.4-5.0 [facility] Comment on above: Performed By: #### C MP #### [facility] [address] [place] [address] Dr. Shelby Rodriguez Albumin/Globulin [Mass ratio] 1.2 {ratio} Normal [facility] Comment on above: Performed By: #### C MP #### [facility] [address] [place] [address] Dr. Shelby Rodriguez ALP [Catalytic activity/Vol] 60 U/L Normal 46-116 [facility] Comment on above: Performed By: #### C MP #### [facility] [address] [place] [address] Dr. Shelby Rodriguez ALT [Catalytic activity/Vol] 35 U/L Normal 14-59 [facility] Comment on above: Performed By: #### C MP #### [facility] [address] [place] [address] Dr. Shelby Rodriguez Anion gap [Moles/Vol] 10.3 mmol/L Normal [facility] Comment on above: Performed By: #### C MP #### [facility] [address] [place] [address] Dr. Shelby Rodriguez AST [Catalytic activity/Vol] 22 U/L Normal 15-37 [facility] Comment on above: Performed By: #### C MP #### [facility] [address] [place] [address] Dr. Shelby Rodriguez Bilirubin [Mass/Vol] 0.5 mg/dL Normal 0.2-1.0 [facility] Comment on above: Performed By: #### C MP #### [facility] [address] [address] [address] Shelby Rodriguez Calcium [Mass/Vol] 9.4 mg/dL Normal 8.5-10.1 [facility] Comment on above: Performed By: #### C MP #### [facility] [address] [address] [address] Shelby Rodriguez Chloride [Moles/Vol] 105 mmol/L Normal 98-107 [facility] Comment on above: Performed By: #### C MP #### [facility] [address] [address] [address] Shelby Rodriguez CO2 [Moles/Vol] 30.5 mmol/L Normal 21.0-32.0 [facility] Comment on above: Performed By: #### C MP #### [facility] [address] [address] [address] Shelby Rodriguez Creatinine [Mass/Vol] 0.87 mg/dL Normal 0.55-1.02 [facility] Comment on above: Performed By: #### C MP #### [facility] [address] [address] [address] Shelby Rodriguez EGFR-AF TUVALUAN >60 Normal >=60 [facility] Comment on above: Performed By: #### C MP #### [facility] [address] [address] [address] Shelby Rodriguez EGFR-NON AF TUVALUAN >60 Normal >=60 [facility] Comment on above: Performed By: #### C MP #### [facility] [address] [address] [address] Shelby Rodriguez Globulin (S) [Mass/Vol] 3.2 g/dL Normal [facility] Comment on above: Performed By: #### C MP #### [facility] [address] [address] [address] Shelby Rodriguez Glucose [Mass/Vol] 122 mg/dL Critically high 74-106 [facility] Comment on above: Performed By: #### C MP #### [facility] [address] [address] [address] Shelby Rodriguez Potassium [Moles/Vol] 4.8 mmol/L Normal 3.5-5.1 [facility] Comment on above: Performed By: #### C MP #### [facility] [address] [address] [address] Shelby Rodriguez Protein [Mass/Vol] 7.1 g/dL Normal 6.4-8.2 [facility] Comment on above: Performed By: #### C MP #### [facility] [address] [address] [address] Shelby Rodriguez Sodium [Moles/Vol] 141 mmol/L Normal 136-145 [facility] Comment on above: Performed By: #### C MP #### [facility] [address] [address] [address] Shelby Rodriguez Urea nitrogen [Mass/Vol] 14.0 mg/dL Normal 7.0-18.0 [facility] Comment on above: Performed By: #### C MP #### [facility] [address] [address] [address] Shelby Rodriguez Urea nitrogen/Creatinine [Mass ratio] 16.1 mg/mg Normal [facility] Comment on above: Performed By: #### C MP #### [facility] [address] [address] [address] Shelby Rodriguez Vital Signs Date Time Vital Sign Value Performing Clinician Facility 11-28-2023 15:41-0400 Body height 149.9 cm Benny Kang MD Work Phone: [facility] 11-28-2023 15:41-0400 Body mass index (BMI) [Ratio] 25.45 kg/m2 Benny Kang MD Work Phone: [facility] 11-28-2023 15:41-0400 Body weight 57.15 kg Benny Kang MD Work Phone: [facility] 11-28-2023 15:41-0400 Diastolic blood pressure 80 mm[Hg] Benny Kang MD Work Phone: [facility] 11-28-2023 15:41-0400 Heart rate 66 /min Benny Kang MD Work Phone: [facility] 11-28-2023 15:41-0400 Systolic blood pressure 130 mm[Hg] Benny Kang MD Work Phone: [facility] 09-24-2023 18:05-0500 Body height 149.9 cm Shaikh Jerrell SINGLETARY Work Phone: [facility] 09-24-2023 18:05-0500 Body mass index (BMI) [Ratio] 24.64 kg/m2 Shaikh Jerrell SINGLETARY Work Phone: [facility] 09-24-2023 18:05-0500 Body temperature 97 [degF] Shaikh Jerrell SINGLETARY Work Phone: [facility] 09-24-2023 18:05-0500 Body weight 55.34 kg Shaikh Jerrell SINGLETARY Work Phone: [facility] 09-24-2023 18:05-0500 Diastolic blood pressure 80 mm[Hg] Shaikh Jerrell SINGLETARY Work Phone: [facility] 09-24-2023 18:05-0500 Heart rate 90 /min Shaikh Jerrell SINGLETARY Work Phone: [facility] 09-24-2023 18:05-0500 SaO2% (BldA) [Mass fraction] 97 % Shaikh Jerrell SINGLETARY Work Phone: [facility] 09-24-2023 18:05-0500 Systolic blood pressure 132 mm[Hg] Shaikh Jerrell SINGLETARY Work Phone: [facility] 03-30-2023 10:39-0400 Body height 149.86 cm Shaikh Chikawad Work Phone: [facility] 250 DO Work Phone: 03-30-2023 10:39-0400 Body mass index (BMI) [Ratio] 26.86 kg/m2 Shaikh Mary Bethwwad Work Phone: [facility] DO Work Phone: 03-30-2023 10:39-0400 Body surface area Derived from formula 1.55 m2 Shaikh Chikawad Work Phone: [facility] DO Work Phone: 03-30-2023 10:39-0400 Body weight 60.33 kg Shaikh Chikawad Work Phone: [facility] DO Work Phone: 03-30-2023 10:39-0400 Diastolic blood pressure 70 mm[Hg] Shaikh Mary Bethwwad Work Phone: [facility] DO Work Phone: 03-30-2023 10:39-0400 Heart rate 76 /min Shaikh Mary Bethwwad Work Phone: [facility] DO Work Phone: 03-30-2023 10:39-0400 Systolic blood pressure 122 mm[Hg] Shaikh Mary Bethwwad Work Phone: [facility] DO Work Phone: 01-26-2023 11:30-0400 Diastolic blood pressure 92 mm[Hg] Khan Fawwad Work Phone: [facility] DO Work Phone: 01-26-2023 11:30-0400 Systolic blood pressure 164 mm[Hg] Khan Fawwad Work Phone: [facility] DO Work Phone: 01-26-2023 11:29-0400 Body height 149.86 cm Shaikh Jerrell Work Phone: [facility] DO Work Phone: 01-26-2023 11:29-0400 Body mass index (BMI) [Ratio] 26.66 kg/m2 Shaikh Jerrell Work Phone: [facility] DO Work Phone: 01-26-2023 11:29-0400 Body surface area Derived from formula 1.55 m2 Shaikh Jerrell Work Phone: [facility] DO Work Phone: 01-26-2023 11:29-0400 Body weight 59.88 kg Shaikh Jerrell Work Phone: [facility] DO Work Phone: 01-26-2023 11:29-0400 Diastolic blood pressure 100 mm[Hg] Shaikh Gavid Work Phone: [facility] DO Work Phone: 01-26-2023 11:29-0400 Heart rate 91 /min Shaikh Jerrell Work Phone: [facility] DO Work Phone: 01-26-2023 11:29-0400 Systolic blood pressure 184 mm[Hg] Shaikh Gavid Work Phone: [facility] DO Work Phone: Encounters Encounter Date Encounter Type Care Provider Facility Start: 11-28-2023 End: 11-28-2023 ambulatory [facility] Start: 11-28-2023 End: 11-28-2023 Office outpatient visit 15 minutes Benny Kang MD Work Phone: [facility] Comment on above: Shortness of breath (Primary Dx); Essential hypertension; Mixed hyperlipidemia; Twziw-0-vxiedadunku deficiency (Multi); Centrilobular emphysema (Multi); Former smoker; BMI 25.0-25.9,adult Start: 11-14-2023 End: 11-14-2023 ambulatory SHAIKH JERRELL Not Available Start: 09-24-2023 End: 09-24-2023 Office outpatient visit 15 minutes Shaikh Jerrell SINGLETARY Work Phone: [facility] Comment on above: Current moderate epi sode of major depressive disorder without prior episode (HCC) (CMS/HCC) (Primary Dx) Start: 09-24-2023 End: 09-24-2023 Orders Only Shaikh Jerrell SINGLETARY Work Phone: [facility] Comment on above: Primary hypertension (CMS/HCC) (Primary Dx) Start: 08-23-2023 End: 08-23-2023 ambulatory SHAIKH JERRELL Not Available Start: 08-02-2023 Patient encounter procedure Shaikh Jerrell SINGLETARY Work Phone: [facility] Start: 08-02-2023 End: 08-02-2023 ambulatory SHAIKH JERRELL Not Available Start: 03-30-2023 Office outpatient vi sit 15 minutes Shaikh Jerrell Work Phone: [facility] DO Work Phone: Start: 03-30-[address] Benny Kang Facility: Start: 03-11-2023 Chart Update Shaikh Jerrell Work Phone: [facility] DO Work Phone: Start: 03-10-2023 Chart Update Shaikh Jerrell Work Phone: [facility] 250 DO Work Phone: Start: 03-09-[address] Benny Kang Facility:[id number] Start: 01-26-2023 Office consultation new/estab patient 60 min Shaikh Jerrell Work Phone: [facility] 250 DO Work Phone: Start: 01-26-[address] Benny Kang Facility:[id number] Start: 01-02-2023 ambulatory ÁLVARO SAMSA . Facility :H1 Start: 10-17-2022 End: 10-18-2022 ambulatory ÁLVARO SAMSA . Facility:H1 Start: 08-16-2022 End: 08-17-2022 ambulatory ÁLVARO SAMSA . Facility: Start: 04-20-2022 End: 04-21-2022 ambulatory SHAIKH Natasha ALLAN Facility:H1 Procedures Date Procedure Procedure Detail Performing Clinician Start: 03-09-2023 Echocardiography Shaikh Jerrell Work Phone: Start: 03-04-2023 Mammography Shaikh Chika salazar MD Work Phone: Start: 09-11-2017 Colonoscopy Shaikh Chika salazar MD Work Phone: Appendectomy Shaikh Jerrell Work Phone: Cataract surgery Shaikh Huy coley Work Phone: Colonoscopy Shaikh Jerrell Work Phone: Hysterectomy Shaikh Jerrell Work Phone: Surgical procedure o n eye proper Shaikh Jerrell Work Phone: Plan of Treatment Date Care Activity Detail Author Start: 09-11-2027 Screening for malign ant neoplasm of colon [facility] Start: 09-02-2024 End: 09-02-2024 Patient encounter procedure 09/02/2024 1:30 PM EST Office Visit [address] [address] Benny Kang MD [address] [facility] [address], [address] [place] [address] [facility] Start: 08-02-2024 Medicare Annual Well ness (AWV) Medicare Annual Wellness (AWV) [facility] Start: 03-04-2024 Screening for malign ant neoplasm of breast Mammogram [facility] Start: 11-22-2023 End: 11-22-2023 Patient encounter procedure 11/22/2023 11:30 AM EDT Office Visit [facility] [address] [place] [address] Shaikh Allan MD [address] [place] [address] [facility] Start: 10-05-2023 FUV, Provider: Benny Kang, Status: Pen, Time: 9:20 AM FUV, Provider: Benny Kang, Status: Pen, Time: 9:20 AM [place] [address] DO Work Phone: Start: 09-24-2023 End: 09-24-2023 Patient encounter procedure 09/24/2023 5:45 PM EST Office Visit [facility] [address] [place] [address] Shaikh Allan MD [address] [place] [address] [facility] Start: 04-13-2023 COVID-19 Vaccine ( season) COVID-19 Vaccine ( season) [facility] Start: 03-30-2023 FUV, Provider: Benny Kang, Status: Pen, Time: 10:30 AM FUV, Provider: Traboulssi,Mourhaf, Status: Pen, Time: 10:30 AM [facility] DO Work Phone: Start: 03-09-2023 ECHO, Provider: JOHN PAUL CHANEL [facility] ULTRASOUND 01,[id number], Status: Pen, Time: 10:45 AM ECHO, Provider: CHUY [facility] ULTRASOUND 01,[id number], Status: Pen, Time: 10:[address] [facility] 250 DO Work Phone: Start: 03-09-2023 STRESS NUC, Provider : CHUY [facility] NUCLEAR 01,[id number], Status: Pen, Time: 8:30 AM STRESS NUC, Provider: CHUY [facility] NUCLEAR 01,[id number], Status: Pen, Time: 8:[address] [facility] DO Work Phone: Start: 04-26-2021 DTaP/Tdap/Td Vaccine s (1 - Tdap) DTaP/Tdap/Td Vaccines (1 - Tdap) [facility] Start: 2013 Hepatitis B Vaccines (1 of 3 - Risk 3-dose series) Hepatitis B Vaccines (1 of 3 - Risk 3-dose series) [facility] Start: 1993 Screening for malign ant neoplasm of breast Mammogram [facility] Start: 1972 Hepatitis A Vaccines (1 of 2 - Risk 2-dose series) Hepatitis A Vaccines (1 of 2 - Risk 2-dose series) [facility] Start: 1971 Diabetes mellitus screening Diabetes Screening [facility] Start: 1971 Hepatitis C screening Hepatitis C Sc reening [facility] Start: 1953 Lipid panel Lipid Panel [facility] Start: 1953 Medicare Annual Well ness Visit Medicare Annual Wellness Visit (AWV) [facility] Start: 1953 Screening for malign ant neoplasm of colon [facility] Start: 1953 Screening for osteoporosis Bone Density Scan [facility] Immunizations Immunization Date Immunization Notes Care Provider Fa cility 05-26-2023 ABRYSVO - Respirator y syncytial virus (RSV), vaccine, bivalent, protein subunit RSV prefusion F, diluent reconstituted, 0.5 mL, PF Shaikh Jerrell S[place]LETARY Work Phone: [facility] 05-24-2023 Influenza, High-dose Seasonal, Quadrivalent, Preservative Free Shaikh Jerrell SINGLETARY Work Phone: [facility] 05-24-2023 Pneumococcal Conjuga te PCV 20 Shaikh Jerrell SINGLETARY Work Phone: [facility] 05-03-2023 pneumococcal conjuga te 20-valent (Prevnar 20) 0.5 ML vaccine Shaikh Jerrell SINGLETARY Work Phone: [facility] 10-27-2022 zoster vaccine recombinant Shaikh Jerrell Work Phone: [facility] [employer] DO Work Phone: 08-27-2022 zoster vaccine recombinant [facility]ikh [facility]rell [facility]: [facility] Work Phone: 06-03-2022 Fluzone High-Dose Quadrivalent 0.7 ML Intramuscular Suspension Prefilled Syringe Shaikh Jerrell Work Phone: [facility] [employer] DO Work Phone: 06-03-2022 influenza, seasonal, injectable Benny Kang MD Work Phone: [facility] Work Phone: 08-03-2021 [employer] COVID-19 Vacc 30 MCG/0.3ML Intramuscular Suspension [facility] Work Phone: 06-02-2021 Fluzone High-Dose Quadrivalent 0.7 ML Intramuscular Suspension Prefilled Syringe Shaikh Jerrell Work Phone: [facility] DO Work Phone: 04-25-2021 diphtheria, tetanus toxoids and pertussis vaccine Khan Fawwad Work Phone: [facility] 04-25-2021 tetanus and diphther ia toxoids, adsorbed, preservative free, for adult use (2 Lf of tetanus toxoid and 2 Lf of diphtheria toxoid) Benny Kang MD Work Phone: [facility] Work Phone: 12-23-2020 Pfizer-BioNTech COVID-19 Vacc 30 MCG/0.3ML Intramuscular Suspension Khan Fawwad Work Phone: [facility] DO Work Phone: 12-02-2020 Pfizer-BioNTech COVID-19 Vacc 30 MCG/0.3ML Intramuscular Suspension Khan Fawwad Work Phone: [facility] DO Work Phone: 07-21-2014 influenza, seasonal, injectable Khan Fawwad Work Phone: [facility] DO Work Phone: 06-21-2013 influenza, seasonal, injectable Khan Fawwad Work Phone: [facility] DO Work Phone: 08-31-2012 influenza, seasonal, injectable, preservative free Khan Fawwad Work Phone: [facility] DO Work Phone: Payers Date Payer Category Payer Medicare [id number] 1961 Medicare [id number] 1961 Private Health Insurance [facility] [id number] 1955 Unknown [id number] 2.16.84 [id number] 1953 Unknown [id number] 2.16.84 [id number] 1953 Unknown [id number] 2.16.84 [id number] 1953 Unknown [id number] 2.16.84 [id number] 1953 Unknown [id number] 2.16. [id number] 1953 Unknown [id number] 2.16. [id number] 1953 Unknown [id number] 2.16. [id number] 1953 Unknown [id number] 2.16.8 [id number] 1953 Unknown [id number] 2.16.84 [id number] 1953 Unknown [id number] 2.16.84 [id number] 1953 Unknown [id number] 2.16.84 [id number] 1953 Unknown [id number] [id number] 1953 Unknown [id number] 2.16.8 [id number] Private Health Insurance MEB [id number] Unknown Social History Date Type Detail Facility Start: 08-29-2023 End: 11-28-2023 No caffeine use No caffeine use -[facility] DO Work Phone: Start: 08-29-2023 End: 11-28-2023 Tobacco smoking status NMIS Ex-smoker [facility] End: 06-28-2020 History of tobacco use Current smoker [facility] End: 06-28-2020 History of tobacco use Cigarette Smoker [facility] Start: 08-29-2023 End: 11-28-2023 Tobacco use and exposure Smokeless tobacco non-user [facility] Start: 08-29-2023 End: 11-28-2023 Alcohol intake Lifetime non-drinker (finding) [facility] Start: 08-29-2023 End: 11-28-2023 Tobacco use panel [facility] Start: 07-18-2023 Alcohol Comment caffeine: 1-2 cups per day [facility] Start: 1955 Sex Assigned At Not on file [facility] Start: 11-18-2023 End: 11-28-2023 Exposure to SARS-CoV-2 (event) Not sure [facility] NEGATED: Highlighted rowStart: JIMENAIrina History of tobacco use Passive smoker [facility] History of Present illness Narrative 11-28-2023 Benny Kang MD - 11/28/2023 2:50 PM EDT Note Date & Type Note Facility 11-28-2023 History of Present illness Narrative Subjective Svetlana Silva is a 68 y.o. female Chief Complaint Follow-up HPI Patient is here for follow-up new management for previous evaluation for shortness of breath attributed primarily to lung disease, tobacco use, hypertension and minimal obesity. Since last time I saw her she denies any change in cardiac status or symptoms. She continues to complain of shortness of breath. She denies lightheadedness, dizziness or syncope. Assessment 1. Class III shortness of breath in patient with known history of tobacco use, COPD/emphysema. Recent cardiac testing including echocardiogram and stress test are reassuring. Symptoms have not changed 2. History of tobacco use quit few years back 3. History of centrilobular emphysema with alpha antitrypsin deficiency 4. Hypertension 5. Intermittent lower extremity edema 6. BMI 25.45 Recommendation 1. I reviewed with her the results of her previous cardiac testing 2. I educated her about ischemic heart disease 3. I review multiple pieces of information including her recent CT scan, pulmonary function test, lab work and remote echo 4. We will see her back in 9 months Review of Systems Respiratory: Positive for shortness of breath. All other systems reviewed and are negative. Vitals: 11/28/23 1541 BP: 130/80 BP Location: Left arm Patient Position: Sitting Pulse: 66 Weight: 57.2 kg (126 lb) Height: 1.499 m (4' 11 ) Objective Physical Exam Constitutional: Appearance: Normal appearance. HENT: Nose: Nose normal. Neck: Vascular: No carotid bruit. Cardiovascular: Rate and Rhythm: Normal rate. Pulses: Normal pulses. Heart sounds: Normal heart sounds. Pulmonary: Effort: Pulmonary effort is normal. Abdominal: General: Bowel sounds are normal. Palpations: Abdomen is soft. Musculoskeletal: General: Normal range of motion. Cervical back: Normal range of motion. Right lower leg: No edema. Left lower leg: No edema. Skin: General: Skin is warm and dry. Neurological: General: No focal deficit present. Mental Status: She is alert. Psychiatric: Mood and Affect: Mood normal. Behavior: Behavior normal. Thought Content: Thought content normal. Judgment: Judgment normal. Allergies Codeine Current Medications Current Outpatient Medications: albuterol 90 mcg/actuation inhaler, Inhale 2 puffs every 4 hours if needed for wheezing or shortness of breath., Disp: , Rfl: alendronate (Fosamax) 70 mg tablet, Take 1 tablet (70 mg) by mouth 1 (one) time per week., Disp: , Rfl: amLODIPine (Norvasc) 5 mg tablet, Take 1 tablet (5 mg) by mouth once daily., Disp: , Rfl: atorvastatin (Lipitor) 40 mg tablet, Take 1 tablet (40 mg) by mouth once daily at bedtime., Disp: , Rfl: budesonide (Pulmicort) 0.5 mg/2 mL nebulizer solution, Take 2 mL (0.5 mg) by nebulization 2 times a day. Rinse mouth with water after use to reduce aftertaste and incidence of candidiasis. Do not swallow., Disp: , Rfl: losartan (Cozaar) 100 mg tablet, Take 1 tablet (100 mg) by mouth once daily., Disp: , Rfl: meloxicam (Mobic) 7.5 mg tablet, Take 1 tablet (7.5 mg) by mouth once daily., Disp: , Rfl: metoprolol tartrate (Lopressor) 25 mg tablet, Take 1 tablet (25 mg) by mouth 2 times a day., Disp: , Rfl: pantoprazole (ProtoNix) 40 mg EC tablet, Take 1 tablet (40 mg) by mouth once daily., Disp: , Rfl: potassium chloride CR 20 mEq ER tablet, Take 1 tablet (20 mEq) by mouth once daily. Do not crush or chew., Disp: , Rfl: pramipexole (Mirapex) 0.5 mg tablet, Take 1 tablet (0.5 mg) by mouth once daily., Disp: , Rfl: revefenacin (Yupelri) 175 mcg/3 mL nebulizer solution, Take 3 mL (175 mcg) by nebulization once daily., Disp: , Rfl: Assessment/Plan 1. Shortness of breath 2. Essential hypertension Follow Up In Cardiology 3. Mixed hyperlipidemia 4. Ajxhy-1-fsnxmesntdd deficiency (Multi) 5. Centrilobular emphysema (Multi) 6. Former smoker 7. BMI 25.0-25.9,adult Scribe Attestation By signing my name below, IIesha LPN, Scribe attest that this documentation has been prepared under the direction and in the presence of Benny Kang MD. Provider Attestation - Scribe documentation All medical record entries made by the Scribe were at my direction and personally dictated by me. I have reviewed the chart and agree that the record accurately reflects my personal performance of the history, physical exam, discussion and plan. documented in this encounter [facility] Work Phone: Instructions 11-28-2023 Patient Instructions Note Date & Type Note Facility 11-28-2023 Instructions Iesha Roper LPN - 11/28/2023 2:50 PM EDT Please bring all medicines, vitamins, and herbal supplements with you when you come to the office. Prescriptions will not be filled unless you are compliant with your follow up appointments or have a follow up appointment scheduled as per instruction of your physician. Refills should be requested at the time of your visit. BMI was above normal measurement. Current weight: 57.2 kg (126 lb) Weight change since last visit (-) denotes wt loss -7 lbs Weight loss needed to achieve BMI 25: 2.5 Lbs Weight loss needed to achieve BMI 30: -22.2 Lbs Provided instructions on dietary changes Provided instructions on exercise. documented in this encounter [facility] Work Phone: History of Present illness Narrative 09-24-2023 Shaikh Jerrell MD - 09/24/2023 6:31 PM ESTSfanny Allan MD - 09/24/2023 5:45 PM EST Note Date & Type Note Facility 09-24-2023 History of Presen t illness Narrative Associated Problem(s): Current moderate episode of major depressive disorder without prior episode (HCC) (CMS/HCC) Patient was seen last appointment for major depression. Was started on Lexapro - she reports initial improvement on 5 mg dose but then her dose was increased to 10 mg. She did not notice much improvement on increased dose of lexapro but at the same time, she experienced significant stress in her family. No SI/HI. Patient agreeable to try a higher dose of Lexapro. Will increase Lexapro to 20 mg daily. Subjective Patient ID: Svetlana Silva is a 68 y.o. female who presents for Follow-up. Follow up of Depression. Last appointment, started on Lexapro 10 mg daily. No adverse effects of Lexapro. Did not notice much improvement in her depressive symptoms. Current Outpatient Medications on File Prior to Visit Medication Sig Dispense Refill alendronate (Fosamax) 70 MG tablet Take 70 mg by mouth 1 (one) time per week amLODIPine (Norvasc) 5 MG tablet Take 5 mg by mouth in the morning. arformoterol (Brovana) 15 MCG/2ML nebulizer solution Take 15 mcg by nebulization in the morning and 15 mcg before bedtime. atorvastatin (Lipitor) 40 MG tablet Take 40 mg by mouth at bedtime biotin (Biotin 5000) 5 MG capsule Take 5 mg by mouth 1 (one) time each day at the same time budesonide (Pulmicort) 0.5 MG/2ML nebulizer solution Take 0.5 mg by nebulization in the morning and 0.5 mg before bedtime. cholecalciferol (Vitamin D-3) 50 MCG (2000 UT) tablet Take 50 tablets by mouth 1 (one) time each day at the same time Cyanocobalamin (Vitamin B12) 1000 MCG tablet controlled-release Take 1,000 mg by mouth 1 (one) time each day at the same time fluticasone (Flonase Allergy Relief) 50 MCG/ACT nasal spray Administer 2 sprays into each nostril in the morning. gabapentin (Neurontin) 300 MG capsule Take 1 capsule (300 mg) by mouth at bedtime 90 capsule 0 ipratropium (Atrovent HFA) 17 MCG/ACT inhaler Inhale 2 puffs in the morning and 2 puffs at noon and 2 puffs in the evening and 2 puffs before bedtime. losartan (Cozaar) 100 MG tablet Take 1 tablet (100 mg) by mouth in the morning. 90 tablet 0 meloxicam (Mobic) 7.5 MG tablet Take 7.5 mg by mouth in the morning. Menthol, Topical Analgesic, (Biofreeze) 10 % cream Apply 10 % topically 1 (one) time each day at the same time pantoprazole (ProtoNix) 40 MG EC tablet Take 40 mg by mouth in the morning. pneumococcal conjugate 20-valent (Prevnar 20) 0.5 ML vaccine Inject 0.5 mL into the shoulder, thigh, or buttocks 1 (one) time potassium chloride (Klor-Con) 20 MEQ packet Take 20 mEq by mouth in the morning. pramipexole (Mirapex) 0.75 MG tablet Take 1 tablet (0.75 mg) by mouth at bedtime 30 tablet 1 revefenacin (Yupelri) 175 MCG/3ML nebulizer solution Take 175 mcg by nebulization in the morning. Ventolin HFA 108 (90 Base) MCG/ACT inhaler Inhale 2 puffs in the morning and 2 puffs at noon and 2 puffs in the evening and 2 puffs before bedtime. [DISCONTINUED] escitalopram (Lexapro) 10 MG tablet Take 1 tablet (10 mg) by mouth in the morning. 90 tablet 0 [DISCONTINUED] metoprolol tartrate (Lopressor) 25 MG tablet Take 25 mg by mouth every 8 (eight) hours No current facility-administered medications on file prior to visit. Allergies Allergen Reactions Codeine Nausea Only, GI intolerance and Other Review of System All systems negative except as mentioned in HPI. Visit Vitals BP 132/80 (BP Location: Left arm, Patient Position: Sitting, BP Cuff Size: Adult) Pulse 90 Temp 97 F (Tympanic) Ht 4' 11 Wt 122 lb SpO2 97% BMI 24.64 kg/m Smoking Status Former BSA 1.52 m Patient Health Questionnaire-2 Score: 0 @LABRESULTS@ No images are attached to the encounter. Objective Comfortable, NAD. Physical Exam General: Comfortable, NAD HEENT: AT/NC. Resp: Normal RR, CTA b/l CVS: Normal HR, No mumur noted. Neuro: AAOX 3, moving all extremities. Psych: Calm, co operative, no HI/SI. Assessment/Plan Problem List Items Addressed This Visit Current moderate episode of major depressive disorder without prior episode (HCC) ([facility]) - Primary Patient was seen last appointment for major depression. Was started on Lexapro - she reports initial improvement on 5 mg dose but then her dose was increased to 10 mg. She did not notice much improvement on increased dose of lexapro but at the same time, she experienced significant stress in her family. No SI/HI. Patient agreeable to try a higher dose of Lexapro. Will increase Lexapro to 20 mg daily. Relevant Medications escitalopram (Lexapro) 20 MG tablet Follow up in about 6 weeks (around 11/05/2023). documented in this encounter [facility] History of Present illness Narrative 01-26-2023 Note [...] function test, lab work and remote echo1.Plan [facility] Work Phone: Chief complaint Narrative - Reported Note Date & Type Note Facility Chief complaint Narrative - Reported SVETLANA SILVA is being seen for a consultation for shortness of breath. [facility] Work Phone: Evaluation note Note Date & Type Note Facility Evaluation note Diagnosis Primary hypertension (CMS/HCC)- Primary Unspecified essential hypertension documented in this encounter [facility] Evaluation note Note Date & Type Note Facility Evaluation note Diagnosis Current moderate episode of major depressive disorder without prior episode (HCC) (CMS/HCC)- Primary documented in this encounter [facility] Evaluation note Note Date & Type Note Facility Evaluation note Diagnosis Shortness of breath- Primary Essential hypertension Unspecified essential hypertension Mixed hyperlipidemia Qyhkb-2-dgoecfcrlqa deficiency (Multi) Ohwoz-3-arglrfedhnp deficiency Centrilobular emphysema (Multi) Former smoker Personal history of tobacco use, presenting hazards to health BMI 25.0-25.9,adult documented in this encounter [facility] Work Phone: History of Present illness Narrative [...] her back in 6 months and follow-up [facility] Work Phone: Reason for referral (narrative) Consultation (Routine) - Authorized Note Date & Type Note Facility Reason for referral (narrati ve) Specialty Diagnoses / Procedures Referred By Contac t Referred To Contact Cardiology Diagnoses Essential hypertension Procedures Follow Up In Cardiology Benny Kang MD [address] [place], [place] [id number] Benny Kang MD [address] [place] [id number] Referral ID Status Reason Start Date Expiration Date V isits Requested Visits Authorized [id number] Authorized 11/28/2023 11/27/2024 1 1 [facility] Work Phone: Summary Purpose Family History No [...] FoundNo Advanced Directives Records Found Chief Complaint SVETLANA SILVA is being seen for results mpl and echo. Additional Source Comments INFORMATION SOURCE (unrecogn ized section and content) DATE CREATED AUTHOR 12/23/2022 [facility] DATE CREATED AUTHOR AUTHOR'S ORGANIZ ATION 03/31/2023 [facility] DATE CREATED AUTHOR AUTHOR'S ORGANIZ ATION 03/31/2023 [employer] DATE CREATED AUTHOR AUTHOR'S ORGANIZ ATION 04/13/2023 [facility] DATE CREATED AUTHOR AUTHOR'S ORGANIZ ATION 11/15/2023 [facility] EPIC DATE CREATED AUTHOR AUTHOR'S ORGANIZ ATION 11/30/2023 [facility] [employer] (unrecognized sec tion and content) Lan Engineer Relationship Specialty Start Date End Date Shaikh Allan MD PCP - General Internal Medicine 06/07/23 Lan Engineer Relationship Specialty Start Date End Date Shaikh Allan MD [address] [place] [id number] PCP - General Internal Medicine 09/24/23 Lan Engineer Relationship Specialty Start Date End Date Shaikh Allan MD PCP - General 01/26/23 Reason for Visit (unrecogniz ed section and content) Reason Comments Follow-up Reason Comments Follow-up 6m FOR RECORDS PERTAINING TO PATIENTS WHO ARE [...] BE BASED ON THE PRIMARY CLINICAL RECORDS. [facility] provides no warranty or guarantee of the accuracy or completeness of information in this document.
== END 2023-12-31 21:02 | disposition home or self-care (01) ==
LOC: LAB 21:01
PROVIDERS: PCP Internal Medicine; Visit Provider Internal Medicine
DX: N30.01 Acute cystitis with hematuria (principal)
CPT/HCPCS: 87086; 87150; 87186

== ENCOUNTER 2024-01-02 09:24 | Outpatient (OUT) | payer MEDICARE, SELFPAY ==
--- OUTSIDE RECORDS SUMMARY | 2024-01-02 09:39 | XMS_ITS | CCD ---
Author Organization [facility] Care Team Providers Care [place] Machine Tender Name Role Phone FACAROL, KHAN H Admitting [...] ble Traboulangeles, Dr. Velasquez Attending Unavaila ble Jorge Luis, Dr. Velasquez Attending Unavaila raul Allan MD, Khan Primary Care Provider [phone] Shaikh Allan MD Primary Care Provider SHAIKH ALLAN Attending Unavailable FAWSHAIKH SAALZAR Attending Unavailable FAWWAAlvin, Attending Unavailable FAWWAAlvin, KHAN Attending Unavailable Shaikh Allan MD Primary Care Provider BENNY KANG Attending Unavailable SHAIKH ALLAN Primary Care Unavailable Allergies Allergy Classification Reported Allergen(s) Allergy Type Date of Onset Reaction(s) Facility (2 sources) Codeine; 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: [CODEINE] Drug Allergy 7 [facility] Repository (7 sources) Codeine; 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: [Codeine Derivatives] Drug Allergy 9 Nausea Only, GI intolerance, Other, Nausea/vomiting [facility] Medications Current Medications Medication Drug Class(es) Dates Sig (Normalized) Sig (Original) [id number] 200 actuat albuterol 0.09 mg/actuat metered dose [...] nutritional; endocrine; and metabolic disorders (6 sources) Ndgvi-5-tfiychuhdtn deficiency; 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: [Gvsrn-9-dhrrkpqdslh deficiency] Onset: 08-30-2023 11-28-2023 Chronic Other nutritional; endocrine; and metabolic disorders (2 sources) Xjasg-2-oihiottmzrn deficiency; 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: [Lyths-6-rudnhgbcihf deficiency (Multi)] Onset: 08-30-2023 Chronic Other nutritional; [...] Follow-up visit Diagnoses/Problems Assessed Dyspnea (786.09) (R06.00) Fqlyd-9-sjqzmigbjev 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) Centrilobular emphysema (492.8) (J43.2) Former smoker (V15.82) (Z87.891) HTN (hypertension) (401.9) (I10) Mixed hyperlipidemia (272.2) (E78.2) Overweight with body mass index (BMI) of 26 to 26.9 in adult (278.02,V85.22) (E66.3,Z68.26) Orders Overweight with body mass index (BMI) of 26 to 26.9 in adult Healthy Weight Tips; Status:Complete - Retrospective Authorization; Done: [id number] Some eating tips that can help you lose weight.; Status:Complete - Retrospective Authorization; Done: [id number] SocHx: Former smoker Tobacco Use Screening; Status:Complete; Done: [id number] Patient Instructions Please bring all medicines, vitamins, [...] negative for complaint. Vitals Vital Signs Recorded: [id number] 10:39AM Heart Rate76, L Radial Izgrzdih957, LUE, Sitting Jznsokvqt14, LUE, Sitting Height4 ft 11 in Zbkuwe154 lb BMI Hurkyrxkez75.86 kg/m2 BSA Calculated1.55 Tobacco Useb) No PHQ-2 [...] Pulmonary: n (more content not included)... Normal [facility]™ Tobacco Screening.on 023 Adult depression screening assessment No [place] [address] DO Work Phone: Fall risk assessment a) No falls within the last year [facility] 250 DO Work Phone: Tobacco use status CPHS b) No [facility] 250 DO Work Phone: Echocardiogramon 03-09-[address], [address] [place] [address] TRANSTHORACIC ECHOCARDIOGRAM REPORT Patient Name: SVETLANA SILVA Edgar Physician: [id number] Benny Kang MD Study Date: 03/09/2023 Referring Physician: BENNY KANG MRN/PID: [id number] PCP: Accession/Order#: [id number] Department Location: [facility] Date of : 1955 Fellow: Gender: F Nurse: Admit Date: Syrup Blender: Fatuma Vidales RDCS T Height: 149.86 cm CC Report to: Weight: 59.88 kg Study Type: Echocardiogram BSA: 1.55 m2 Blood Pressure: 140 /78 mmHg Diagnosis/ICD: R06.00-Dyspnea, unspecified Indication: HTN, Hyperlipidemia, Former Smoker, Centrilobular Emphysema, Alpha-1 Antitrysin Deficiency, Overweight Procedure/CPT: Echo Complete w Full [id number] Study Detail: The following Echo studies were [...] 0.8 m/s (0.6-0.9m/s) PV Max P.7 mmHg [id number] Benny Kang MD Electronically signed on 03/10/2023 at 4:28:00 PM Final Normal [facility] CARDIAC STRESS/REST INJE CTIONon 03-09-2023 [facility] CARDIAC STRESS/REST INJECTION Patient Name: SVETLANA SILVA STUDY: MYOCARDIAL PERFUSION STRESS TEST WITH LEXISCAN Performing facility: [facility], [address] [place] [address], [address], [place] [address] [facility] Provider: Benny Kang MD PCP: Dr. David Allan Supervising provider: Polina Palomino MD, [facility] INDICATION: Dyspnea HISTORY: Gender: F; Age: 67 y/o ; Height: 0 cm; Weight: 0 kg. High Cholesterol; HTN; SOB; COPD; Emphysema Quit smoking 3.5 years ago. COMPARISON: No comparison. ACCESSION NUMBER(S): [id number]; [id number]; [id number] ORDERING CLINICIAN: BENNY KANG TECHNIQUE: ONE DAY [...] comparison. 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 Normal PrizeBox™ Tobacco Screening.on 023 Adult depression screening assessment No [facility] eMar DO Work Phone: Fall risk assessment b) One or more fall s in the last year formerly [facility] [employer] 250 DO Work Phone: Tobacco use status CPHS b) No formerly [facility] [employer] DO Work Phone: XR CHEST 2 Von [...] by: FRANCIS ANDERSON Date: 2022-10-17 15:[address] [facility] CT LUNG CANCER SCREENINGon 0 08-17-2022 [...] THERESA LUCIA Date: 2022-08-17 07:32 Normal [facility] PROF 14(COMP METB)on 022 Albumin [Mass/Vol] 3.9 g/dL Normal 3.4-5.0 [facility] Comment on above: Performed By: #### C MP #### [facility] [address] [place] [address] Dr. Shelby Rodriguez Albumin/Globulin [Mass ratio] 1.2 {ratio} Normal [facility] Comment on above: Performed By: #### C MP #### [facility] [address] [place] [address] Dr. Shelby Rodriguez ALP [Catalytic activity/Vol] 60 U/L Normal 46-116 [facility] Comment on above: Performed By: #### C MP #### [facility] [address] [place] [address] Dr. Shelby Rodriguez ALT [Catalytic activity/Vol] 35 U/L Normal 14-59 [facility] Comment on above: Performed By: #### C MP #### [facility] [address] [place] [address] Dr. Shelby Rodriguez Anion gap [Moles/Vol] 10.3 mmol/L Normal [facility] Comment on above: Performed By: #### C MP #### [facility] [address] [place] [address] Dr. Shelby Rodriguez AST [Catalytic activity/Vol] 22 U/L Normal 15-37 [facility] Comment on above: Performed By: #### C MP #### [facility] [address] [place] [address] Dr. Shelby Rodriguez Bilirubin [Mass/Vol] 0.5 mg/dL Normal 0.2-1.0 [facility] Comment on above: Performed By: #### C MP #### [facility] [address] [address] [address] Shelby Rodriguez Calcium [Mass/Vol] 9.4 mg/dL Normal 8.5-10.1 [facility] Comment on above: Performed By: #### C MP #### [facility] [address] [address] [address] Shelby Rodriguez Chloride [Moles/Vol] 105 mmol/L Normal 98-107 [facility] Comment on above: Performed By: #### C MP #### [facility] [address] [address] [address] Shelby Rodriguez CO2 [Moles/Vol] 30.5 mmol/L Normal 21.0-32.0 [facility] Comment on above: Performed By: #### C MP #### [facility] [address] [address] [address] Shelby Rodriguez Creatinine [Mass/Vol] 0.87 mg/dL Normal 0.55-1.02 [facility] Comment on above: Performed By: #### C MP #### [facility] [address] [address] [address] Shelby Rodriguez EGFR-AF JAPANESE >60 Normal >=60 [facility] Comment on above: Performed By: #### C MP #### [facility] [address] [address] [address] Shelby Rodriguez EGFR-NON AF JAPANESE >60 Normal >=60 [facility] Comment on above: Performed By: #### C MP #### [facility] [address] [address] [address] Shelby Rodriguez Globulin (S) [Mass/Vol] 3.2 g/dL Normal [facility] Comment on above: Performed By: #### C MP #### [facility] [address] [address] [address] Shelby Rodriguez Glucose [Mass/Vol] 122 mg/dL Critically high 74-106 T [facility] Comment on above: Performed By: #### C MP #### [facility] [address] [address] [address] Shelby Rodriguez Potassium [Moles/Vol] 4.8 mmol/L Normal 3.5-5.1 [facility] Comment on above: Performed By: #### C MP #### [facility] [address] [address] [address] Shelby Rodriguez Protein [Mass/Vol] 7.1 g/dL Normal 6.4-8.2 [facility] Comment on above: Performed By: #### C MP #### [facility] [address] [address] [address] Shelby Rodriguez Sodium [Moles/Vol] 141 mmol/L Normal 136-145 [facility] Comment on above: Performed By: #### C MP #### [facility] [address] [address] [address] Shelby Rodriguez Urea nitrogen [Mass/Vol] 14.0 mg/dL Normal 7.0-18.0 [facility] Comment on above: Performed By: #### C MP #### [facility] [address] [address] [address] Shelby Rodriguez Urea nitrogen/Creatinine [Mass ratio] 16.1 mg/mg Normal [facility] Comment on above: Performed By: #### C MP #### [facility] [address] [address] [address] Shelby Rodriguez Vital Signs Date Time Vital Sign Value Performing Clinician Facility 11-28-2023 15:41-0400 Body height 149.9 cm Benny Kang MD Work Phone: [facility] 11-28-2023 15:41-0400 Body mass index (BMI) [Ratio] 25.45 kg/m2 Benny Kang MD Work Phone: [facility] 11-28-2023 15:41-0400 Body weight 57.15 kg Benny Kang MD Work Phone: [facility] 11-28-2023 15:41-0400 Diastolic blood pressure 80 mm[Hg] Benny Kang MD Work Phone: [facility] 11-28-2023 15:41-0400 Heart rate 66 /min Benny Kang MD Work Phone: [facility] 11-28-2023 15:41-0400 Systolic blood pressure 130 mm[Hg] Benny Kang MD Work Phone: [facility] 09-24-2023 18:05-0500 Body height 149.9 cm Shaikh Jerrell SINGLETARY Work Phone: [facility] 09-24-2023 18:05-0500 Body mass index (BMI) [Ratio] 24.64 kg/m2 Shaikh Jerrell SINGLETARY Work Phone: [facility] 09-24-2023 18:05-0500 Body temperature 97 [degF] Shaikh Jerrell SINGLETARY Work Phone: [facility] 09-24-2023 18:05-0500 Body weight 55.34 kg Shaikh Jerrell SINGLETARY Work Phone: [facility] 09-24-2023 18:05-0500 Diastolic blood pressure 80 mm[Hg] Shaikh Jerrell SINGLETARY Work Phone: [facility] 09-24-2023 18:05-0500 Heart rate 90 /min Shaikh Jerrell SINGLETARY Work Phone: [facility] 09-24-2023 18:05-0500 SaO2% (BldA) [Mass fraction] 97 % Shaikh Jerrell SINGLETARY Work Phone: [facility] 09-24-2023 18:05-0500 Systolic blood pressure 132 mm[Hg] Shaikh Jerrell SINGLETARY Work Phone: [facility] 03-30-2023 10:39-0400 Body height 149.86 cm Shaikh Chikawad Work Phone: [facility] 250 DO Work Phone: 03-30-2023 10:39-0400 Body mass index (BMI) [Ratio] 26.86 kg/m2 Shaikh Mary [place]wwad Work Phone: formerly [facility] 250 DO Work Phone: 03-30-2023 10:39-0400 Body surface area Derived from formula 1.55 m2 Shaikh Chikawad Work Phone: formerly [facility] 250 DO Work Phone: 03-30-2023 10:39-0400 Body weight 60.33 kg Shaikh Chikawad Work Phone: formerly [facility] 250 DO Work Phone: 03-30-2023 10:39-0400 Diastolic blood pressure 70 mm[Hg] Shaikh Mary [place] Work Phone: formerly [facility] 250 DO Work Phone: 03-30-2023 10:39-0400 Heart rate 76 /min Shaikh Mary [place]wwad Work Phone: formerly [facility] 250 DO Work Phone: 03-30-2023 10:39-0400 Systolic blood pressure 122 mm[Hg] Shaikh Mary [place]wwad Work Phone: formerly [facility] 250 DO Work Phone: 01-26-2023 11:30-0400 Diastolic blood pressure 92 mm[Hg] Khan Fawwad Work Phone: formerly [facility] 250 DO Work Phone: 01-26-2023 11:30-0400 Systolic blood pressure 164 mm[Hg] Khan Fawwad Work Phone: formerly [facility] 250 DO Work Phone: 01-26-2023 11:29-0400 Body height 149.86 cm Shaikh Jerrell Work Phone: formerly [facility] 250 DO Work Phone: 01-26-2023 11:29-0400 Body mass index (BMI) [Ratio] 26.66 kg/m2 Shaikh Jerrell Work Phone: formerly [facility] 250 DO Work Phone: 01-26-2023 11:29-0400 Body surface area Derived from formula 1.55 m2 Shaikh Jerrell Work Phone: formerly [facility] 250 DO Work Phone: 01-26-2023 11:29-0400 Body weight 59.88 kg Shaikh Jerrell Work Phone: formerly [facility] 250 DO Work Phone: 01-26-2023 11:29-0400 Diastolic blood pressure 100 mm[Hg] Shaikh Gavid Work Phone: formerly [facility] 250 DO Work Phone: 01-26-2023 11:29-0400 Heart rate 91 /min Shaikh Jerrell Work Phone: formerly [facility] 250 DO Work Phone: 01-26-2023 11:29-0400 Systolic blood pressure 184 mm[Hg] Shaikh Gavid Work Phone: formerly [facility] 250 DO Work Phone: Encounters Encounter Date Encounter Type Care Provider Facility Start: 11-28-2023 End: 11-28-2023 ambulatory [facility] Ambulatory Start: 11-28-2023 End: 11-28-2023 Office outpatient visit 15 minutes Benny Kang MD Work Phone: [facility] Comment on above: Shortness of breath (Primary Dx); Essential hypertension; Mixed hyperlipidemia; Ngnar-2-rnxmzutvwwb deficiency (Multi); Centrilobular emphysema (Multi); Former smoker; BMI 25.0-25.9,adult Start: 11-14-2023 End: 11-14-2023 ambulatory SHAIKH JERRELL Not Available Start: 09-24-2023 End: 09-24-2023 Office outpatient visit 15 minutes Shaikh Jerrell SINGLETARY Work Phone: [facility] Comment on above: Current moderate epi sode of major depressive disorder without prior episode (HCC) (CMS/HCC) (Primary Dx) Start: 09-24-2023 End: 09-24-2023 Orders Only Shaikh Jerrell SINGLETARY Work Phone: [facility] Comment on above: Primary hypertension (CMS/HCC) (Primary Dx) Start: 08-23-2023 End: 08-23-2023 ambulatory SHAIKH JERRELL Not Available Start: 08-02-2023 Patient encounter procedure Shaikh Jerrell SINGLETARY Work Phone: [facility] Start: 08-02-2023 End: 08-02-2023 ambulatory SHAIKH JERRELL Not Available Start: 03-30-2023 Office outpatient vi sit 15 minutes Shaikh Jerrell Work Phone: [facility] 250 DO Work Phone: Start: 03-30-[address] Benny Kang Facility: Start: 03-11-2023 Chart Update Shaikh Jerrell Work Phone: [facility] 250 DO Work Phone: Start: 03-10-2023 Chart Update Shaikh Jerrell Work Phone: [facility] 250 DO Work Phone: Start: 03-09-[address] Benny Kang Facility:[id number] Start: 01-26-2023 Office consultation new/estab patient 60 min Shaikh Jerrell Work Phone: [facility] 250 DO Work Phone: Start: 01-26-[address] Benny Kang Facility:[id number] Start: 01-02-2023 ambulatory ÁLVARO SAMSA . Facility [...] malign ant neoplasm of colon [facility] Start: 09-02-2024 End: 09-02-2024 Patient encounter procedure 09/02/2024 1:30 PM EST Office Visit [address] [address] Benny Kang MD [address] [facility] [address] [place] [address] [facility] Start: 08-02-2024 Medicare Annual Well ness (AWV) Medicare Annual Wellness (AWV) [facility] Start: 03-04-2024 Screening for malign ant neoplasm of breast Mammogram [facility] Start: 11-22-2023 End: 11-22-2023 Patient encounter procedure 11/22/2023 11:30 AM EDT Office Visit [facility] [address] [place] [address] Shaikh Allan MD [address] [place] [address] [facility] Start: 10-05-2023 FUV, Provider: Benny Kang, Status: Pen, Time: 9:20 AM FUV, Provider: Benny Kang, Status: Pen, Time: 9:20 AM [place] [address] DO Work Phone: Start: 09-24-2023 End: 09-24-2023 Patient encounter procedure 09/24/2023 5:45 PM EST Office Visit [facility] [address] [place] [address] Shaikh Allan MD [address] [place] [address] [facility] Start: 04-13-2023 COVID-19 Vaccine ( season) COVID-19 Vaccine ( season) [facility] Start: 03-30-2023 FUV, Provider: Benny Kang, Status: Pen, Time: 10:30 AM FUV, Provider: Traboulssi,Mourhaf, Status: Pen, Time: 10:30 AM [facility] 250 DO Work Phone: Start: 03-09-2023 ECHO, Provider: JOHN PAUL CHANEL [facility] ULTRASOUND 01,[id number], Status: Pen, Time: 10:45 AM ECHO, Provider: CHUY [facility] ULTRASOUND 01,[id number], Status: Pen, Time: 10:45 AM [facility] 250 DO Work Phone: Start: 03-09-2023 STRESS NUC, Provider : CHUY [facility] NUCLEAR 01,[id number], Status: Pen, Time: 8:30 AM STRESS NUC, Provider: CHUY [facility] NUCLEAR 01,[id number], Status: Pen, Time: 8:30 AM [facility] 250 DO Work Phone: Start: 04-26-2021 DTaP/Tdap/Td Vaccine s (1 - Tdap) DTaP/Tdap/Td Vaccines (1 - Tdap) [facility] Start: 2013 Hepatitis B Vaccines (1 of 3 - Risk 3-dose series) Hepatitis B Vaccines (1 of 3 - Risk 3-dose series) [facility] Start: 1993 Screening for malign ant neoplasm of breast Mammogram [facility] Start: 1972 Hepatitis A Vaccines (1 of 2 - Risk 2-dose series) Hepatitis A Vaccines (1 of 2 - Risk 2-dose series) [facility] Start: 1971 Diabetes mellitus screening Diabetes Screening [facility] Start: 1971 Hepatitis C screening Hepatitis C Sc reening [facility] Start: 1955 Lipid panel Lipid Panel [facility] Start: 1955 Medicare Annual Well ness Visit Medicare Annual Wellness Visit (AWV) [facility] Start: 1955 Screening for malign ant neoplasm of colon [facility] Start: 1955 Screening for osteoporosis Bone Density Scan [facility] Immunizations Immunization Date Immunization Notes Care Provider Fa cility 05-26-2023 ABRYSVO - Respirator y syncytial virus (RSV), vaccine, bivalent, protein subunit RSV prefusion F, diluent reconstituted, 0.5 mL, PF Shaikh Jerrell SINGLETARY Work Phone: [facility] 05-24-2023 Influenza, High-dose Seasonal, Quadrivalent, Preservative Free Shaikh Jerrell SINGLETARY Work Phone: [facility] 05-24-2023 Pneumococcal Conjuga te PCV 20 Shaikh Jerrell SINGLETARY Work Phone: [facility] 05-03-2023 pneumococcal conjuga te 20-valent (Prevnar 20) 0.5 ML vaccine Shaikh Jerrell SINGLETARY Work Phone: [facility] 10-27-2022 zoster vaccine recombinant Shaikh Jerrell Work Phone: [facility] [employer] DO Work Phone: 08-27-2022 zoster vaccine recombinant [facility]ikh [facility]rell [facility] Phone: [facility] Work Phone: 06-03-2022 Fluzone High-Dose Quadrivalent 0.7 ML Intramuscular Suspension Prefilled Syringe Shaikh Jerrell Work Phone: formerly [facility] [employer] DO Work Phone: 06-03-2022 influenza, seasonal, injectable Benny Kang MD Work Phone: [facility] Work Phone: 08-03-2021 [employer] COVID-19 Vacc 30 MCG/0.3ML Intramuscular Suspension Shaikh Jerrell Work Phone: [facility] DO Work Phone: 06-02-2021 Fluzone High-Dose Quadrivalent 0.7 ML Intramuscular Suspension Prefilled Syringe Shaikh Jerrell Work Phone: [facility] DO Work Phone: 04-25-2021 diphtheria, tetanus toxoids and pertussis vaccine Khan Fawwad Work Phone: [facility] 04-25-2021 tetanus and diphther ia toxoids, adsorbed, preservative free, for adult use (2 Lf of tetanus toxoid and 2 Lf of diphtheria toxoid) Benny Kang MD Work Phone: [facility] Work Phone: 12-23-2020 Pfizer-BioNTech COVID-19 Vacc 30 MCG/0.3ML Intramuscular Suspension Khan Fawwad Work Phone: [facility] 250 DO Work Phone: 12-02-2020 Pfizer-BioNTech COVID-19 Vacc 30 MCG/0.3ML Intramuscular Suspension Khan Fawwad Work Phone: [facility] 250 DO Work Phone: 07-21-2014 influenza, seasonal, injectable Khan Fawwad Work Phone: [facility] 250 DO Work Phone: 06-21-2013 influenza, seasonal, injectable Khan Fawwad Work Phone: formerly [facility] 250 DO Work Phone: 08-31-2012 influenza, seasonal, injectable, preservative free Khan Fawwad Work Phone: formerly [facility] 250 DO Work Phone: Payers Date Payer Category Payer Medicare [id number] 1961 Medicare [id number] 1961 Private Health Insurance [facility] [id number] 1955 Unknown [id number] 2.16.84 [id number] 1955 Unknown [id number] 2.16.84 [id number] 1955 Unknown [id number] 2.16.84 [id number] 1955 Unknown [id number] 2.16.84 0.1.560714.3.579.2.593 1955 Unknown [id number] 2.16. [id number] 1955 Unknown [id number] 2.16. [id number] 1955 Unknown [id number] 2.16. [id number] 1955 Unknown [id number] 2.16.8 40.1.113992.3.579.2.1068 1955 Unknown [id number] 2.16.84 0.1.466951.3.579.2.1259 1955 Unknown [id number] 2.16.84 0.1.046029.3.579.2.1259 1955 Unknown [id number] 2.16.84 0.1.494248.3.579.2.1259 1953 Unknown [id number] 2.16.840 .[id number] 1955 Unknown [id number] 2.16.8 [id number] Private Health Insurance [id number] Unknown Social History Date Type Detail Facility Start: 08-29-2023 End: 11-28-2023 No caffeine use No caffeine use -[facility] 250 DO Work Phone: Start: 08-29-2023 End: 11-28-2023 Tobacco smoking status MEIS Ex-smoker [facility] End: 06-28-2020 History of tobacco use Current smoker [facility] End: 06-28-2020 History of tobacco use Cigarette Smoker [facility] Start: 08-29-2023 End: 11-28-2023 Tobacco use and exposure Smokeless tobacco non-user [facility] Start: 08-29-2023 End: 11-28-2023 Alcohol intake Lifetime non-drinker (finding) [facility] Start: 08-29-2023 End: 11-28-2023 Tobacco use panel [facility] Start: 07-18-2023 Alcohol Comment caffeine: 1-2 cups per day [facility] Start: 1955 Sex Assigned At Not on file [facility] Start: 11-18-2023 End: 11-28-2023 Exposure to SARS-CoV-2 (event) Not sure [facility] NEGATED: Highlighted rowStart: JIMENAIrina History of tobacco use Passive smoker [facility] History of Present illness Narrative 11-28-2023 [...] Up In Cardiology 3. Mixed hyperlipidemia 4. Jkzdj-8-xsshrjnytdn deficiency (Multi) 5. Centrilobular emphysema (Multi) 6. [...] plan. documented in this encounter [facility] Work Phone: Instructions 11-28-2023 Patient Instructions Note [...] exercise. documented in this encounter [facility] Work Phone: History of Present illness Narrative [...] major depressive disorder without prior episode (HCC) ([facility]) - Primary Patient was seen last appointment [...] function test, lab work and remote echo1.Plan formerly [facility] [employer] Work Phone: Chief complaint Narrative - Reported Note Date & Type Note Facility Chief complaint Narrative - Reported SVETLANA SILVA is being seen for a consultation for shortness of breath. [facility] Evaluation note Note Date & Type Note Facility Evaluation note Diagnosis Primary hypertension (CMS/HCC)- Primary Unspecified essential hypertension documented in this encounter [facility] Evaluation note Note Date & Type Note Facility Evaluation note Diagnosis Current moderate episode of major depressive disorder without prior episode (HCC) (CMS/HCC)- Primary documented in this encounter [facility] Evaluation note Note Date & Type Note Facility Evaluation note Diagnosis Shortness of breath- Primary Essential hypertension Unspecified essential hypertension Mixed hyperlipidemia Fqpaj-9-psypupbqdaq deficiency (Multi) Djjtt-9-prazdwsvuqu deficiency Centrilobular emphysema (Multi) Former smoker Personal history of tobacco use, presenting hazards to health BMI 25.0-25.9,adult documented in this encounter [facility] Work Phone: History of Present illness Narrative [...] her back in 6 months and follow-up [facility] [employer] Work Phone: Reason for referral (narrative) Consultation (Routine) - Authorized Note Date & Type Note Facility Reason for referral (narrati ve) Specialty Diagnoses / Procedures Referred By Contac t Referred To Contact Cardiology Diagnoses Essential hypertension Procedures Follow Up In Cardiology Benny Kang MD [address] [place], [place] [id number] Benny Kang MD [address] [place] [id number] Referral ID Status Reason Start Date Expiration Date V isits Requested Visits Authorized [id number] Authorized 11/28/2023 11/27/2024 1 1 [facility] Work Phone: Summary Purpose Family History [...] and content) DATE CREATED AUTHOR 12/23/2022 [facility] DATE CREATED AUTHOR AUTHOR'S ORGANIZ ATION 03/31/2023 [facility] DATE CREATED AUTHOR AUTHOR'S ORGANIZ ATION 03/31/2023 [employer] DATE CREATED AUTHOR AUTHOR'S ORGANIZ ATION 04/13/2023 [facility] DATE CREATED AUTHOR AUTHOR'S ORGANIZ ATION 11/15/2023 [facility] EPIC DATE CREATED AUTHOR AUTHOR'S ORGANIZ ATION 11/30/2023 [facility] [employer] (unrecognized sec tion and content) [employer] Relationship Specialty Start Date End Date Shaikh Allan MD PCP - General Internal Medicine 06/07/23 [employer] Relationship Specialty Start Date End Date Shaikh Allan MD [address] [place] [id number] PCP - General Internal Medicine 09/24/23 [employer] Relationship Specialty Start Date End Date Shaikh [...] BE BASED ON THE PRIMARY CLINICAL RECORDS. [employer] [facility] provides no warranty or guarantee of the accuracy or completeness of information in this document.
== END 2024-01-02 09:25 | disposition home or self-care (01) ==
LOC: LAB 09:25
PROVIDERS: PCP Internal Medicine; Visit Provider Internal Medicine
DX: N30.01 Acute cystitis with hematuria (principal)
CPT/HCPCS: 87086; 87150; 87186

== ENCOUNTER 2024-01-13 18:35 | Emergency (ER) | payer MEDICARE, SELFPAY ==
[2024-01-13 18:38] VITALS: BP 154/100; PULSE 115; TEMP 37.2; O2SAT 95; BMI 24.5
--- OUTSIDE RECORDS SUMMARY | 2024-01-13 18:45 | XMS_ITS | CCD ---
Author Organization [facility] ion [facility] Care Team Providers Care Mounting Inspector Name Role Phone FAWWAD, KHAN H Admitting [...] Dr. Velasquez Attending Unavaila raul Allan MD, [facility] Primary Care Provider Jerrell SINGLETARY, Khan Primary Care Provider Jerrell SINGLETARY, Khan Primary Care Provider BENNY KANG Attending Unavailable FAWWAD, KHAN Primary Care Unavailable SHAIKH ALLAN Attending Unavailable SHAIKH ALLAN Attending Unavailable SHAIKH ALLAN Attending Unavailable SHAIKH ALLAN Attending Unavailable SHAIKH ALLAN Attending Unavailable Allergies Allergy Classification Reported Allergen(s) Allergy Type Date of Onset Reaction(s) Facility (2 sources) Codeine; 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: [CODEINE] Drug Allergy 7 [facility] Repository (7 sources) Codeine; 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: [Codeine Derivatives] Drug Allergy 9 Nausea Only, GI intolerance, Other, Nausea/vomiting [facility] Medications Current Medications Medication Drug Class(es) Dates Sig (Normalized) Sig (Original) [id number] 200 actuat albuterol 0.09 mg/actuat metered dose [...] (5 sources) Serotonin Reuptake Inhibitor Start: 09-24-19 End: 12-23-19 24 take 1 tablet by [...] sources) Nonergot Dopamine Agonist Start: 08-02-2023 End: 02-19-2024 take 1 tablet by mouth at bedtime [...] nutritional; endocrine; and metabolic disorders (6 sources) Whyyk-7-backcchiezg deficiency; 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: [Wdvir-8-wfotxxjznkb deficiency] Onset: 08-30-2023 11-28-2023 Chronic Other nutritional; endocrine; and metabolic disorders (2 sources) Sfzrd-4-zigezysfqhj deficiency; 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: [Gqonk-2-bzkdevoxjzy deficiency (Multi)] Onset: 08-30-2023 Chronic Other nutritional; [...] Follow-up visit Diagnoses/Problems Assessed Dyspnea (786.09) (R06.00) Knpam-9-naccccmyxno 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) Centrilobular emphysema (492.8) (J43.2) Former smoker (V15.82) (Z87.891) HTN (hypertension) (401.9) (I10) Mixed hyperlipidemia (272.2) (E78.2) Overweight with body mass index (BMI) of 26 to 26.9 in adult (278.02,V85.22) (E66.3,Z68.26) Orders Overweight with body mass index (BMI) of 26 to 26.9 in adult Healthy Weight Tips; Status:Complete - Retrospective Authorization; Done: 22Hmy3284 Some eating tips that can help you lose weight.; Status:Complete - Retrospective Authorization; Done: 81Apm8477 SocHx: Former smoker Tobacco Use Screening; Status:Complete; Done: 82Gbb1198 Patient Instructions Please bring all medicines, vitamins, [...] negative for complaint. Vitals Vital Signs Recorded: 30Dad7121 10:39AM Heart Rate76, L Radial Jymkmfxt624, LUE, Sitting Rmngkyibf15, LUE, Sitting Height4 ft 11 in Jawrtx522 lb BMI Czswlgcumo32.86 kg/m2 BSA Calculated1.55 Tobacco Useb) No PHQ-2 [...] Pulmonary: n (more content not included)... Normal [employer] Tobacco Screening.on 023 Adult depression screening assessment No [facility] 250 DO Work Phone: Fall risk assessment a) No falls within the last year [facility] 250 DO Work Phone: Tobacco use status CPHS b) No [facility] 250 DO Work Phone: Echocardiogramon 03-09-[address], [address] [place] [address] TRANSTHORACIC ECHOCARDIOGRAM REPORT Patient Name: SVETLANA SILVA Edgar Physician: [id number] Benny Kang MD Study Date: 03/09/2023 Referring Physician: BENNY KANG MRN/PID: [id number] PCP: Accession/Order#: [id number] Department Location: [facility] Date of : 1955 Fellow: Gender: F Nurse: Admit Date: Fruit Buyer: Fatuma Vidales RD, T Height: 149.86 cm CC Report to: Weight: 59.88 kg Study Type: Echocardiogram BSA: 1.55 m2 Blood Pressure: 140 /78 mmHg Diagnosis/ICD: R06.00-Dyspnea, unspecified Indication: HTN, Hyperlipidemia, Former Smoker, Centrilobular Emphysema, Alpha-1 Antitrysin Deficiency, Overweight Procedure/CPT: Echo Complete w Full [id number] Study Detail: The following Echo studies were [...] 0.8 m/s (0.6-0.9m/s) PV Max P.7 mmHg [id number] Benny Kang MD Electronically signed on 03/10/2023 at 4:28:00 PM Final Normal [facility] CARDIAC STRESS/REST INJE CTIONon 03-09-2023 [facility] CARDIAC STRESS/REST INJECTION Patient Name: SVETLANA SILVA STUDY: MYOCARDIAL PERFUSION STRESS TEST WITH LEXISCAN Performing facility: [facility], [address] [place] [address], [address], [place] [address] [facility] Provider: Benny Kang MD PCP: Dr. David Allan Supervising provider: Polina Palomino MD, [facility] INDICATION: Dyspnea HISTORY: Gender: F; Age: 67 y/o ; Height: 0 cm; Weight: 0 kg. High Cholesterol; HTN; SOB; COPD; Emphysema Quit smoking 3.5 years ago. COMPARISON: No comparison. 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 : dyspnea Overweight with body mass index (BMI) of 26 to 26.9 in adult Healthy Weight Tips; Status:Complete; Done: 24Hfs3626 Some eating tips that can help you lose weight.; Status:Complete; Done: 66Ahq5705 SocHx: Former smoker Tobacco Use Screening; Status:Complete; Done: 12Lgn9043 Patient Instructions Please bring all medicines, vitamins, [...] no sei (more content not included)... Normal [employer] Tobacco Screening.on 023 Adult depression screening assessment No [facility] DO Work Phone: Fall risk assessment b) One or more fall s in the last year [facility] DO Work Phone: Tobacco use status CPHS b) No [facility] DO Work Phone: XR CHEST 2 Von [...] acute cardiopulmonary abnormality. Electronically authenticated by: FRANCIS ANDERSNO Date: 2022-10-17 15:20 Normal [facility] CT LUNG CANCER SCREENINGon 0 08-17-2022 [...] THERESA LUCIA Date: 2022-08-17 07:32 Normal [facility] PROF 14(COMP METB)on 022 Albumin [Mass/Vol] 3.9 g/dL Normal 3.4-5.0 [facility] Comment on above: Performed By: #### C MP #### [facility] [address] [place] [address] Dr. Shelby Rodriguez Albumin/Globulin [Mass ratio] 1.2 {ratio} Normal [facility] Comment on above: Performed By: #### C MP #### [facility] [address] [place] [address] Dr. Shelby Rodriguez ALP [Catalytic activity/Vol] 60 U/L Normal 46-116 [facility] Comment on above: Performed By: #### C MP #### [facility] [address] [place] [address] Dr. Shelby Rodriguez ALT [Catalytic activity/Vol] 35 U/L Normal 14-59 [facility] Comment on above: Performed By: #### C MP #### [facility] [address] [address] [address] Shelby Rodriguez Anion gap [Moles/Vol] 10.3 mmol/L Normal [facility] Comment on above: Performed By: #### C MP #### [facility] [address] [address] [address] Shelby Rodriguez AST [Catalytic activity/Vol] 22 U/L Normal 15-37 [facility] Comment on above: Performed By: #### C MP #### [facility] [address] [address] [address] Shelby Rodriguez Bilirubin [Mass/Vol] 0.5 mg/dL Normal 0.2-1.0 [facility] Comment on above: Performed By: #### C MP #### [facility] [address] [address] [address] Shelby Rodriguez Calcium [Mass/Vol] 9.4 mg/dL Normal 8.5-10.1 [facility] Comment on above: Performed By: #### C MP #### [facility] [address] [address] [address] Shelby Rodriguez Chloride [Moles/Vol] 105 mmol/L Normal 98-107 [facility] Comment on above: Performed By: #### C MP #### [facility] [address] [place] [address] Dr. Shelby Rodriguez CO2 [Moles/Vol] 30.5 mmol/L Normal 21.0-32.0 [facility] Comment on above: Performed By: #### C MP #### [facility] [address] [address] [address] Shelby Rodriguez Creatinine [Mass/Vol] 0.87 mg/dL Normal 0.55-1.02 [facility] Comment on above: Performed By: #### C MP #### [facility] [address] [place] [address] Dr. Shelby Rodriguez EGFR-AF [place] CITIZ[place] >60 Normal >=60 [facility] Comment on above: Performed By: #### C MP #### [facility] [address] [address] [address] Shelby Rodriguez EGFR-NON AF [place] CITIZEN >60 Normal >=60 [facility] Comment on above: Performed By: #### C MP #### [facility] [address] [place] [address] Dr. Shelby Rodriguez Globulin (S) [Mass/Vol] 3.2 g/dL Normal [facility] Comment on above: Performed By: #### C MP #### [facility] [address] [address] [address] Shelby Rodriguez Glucose [Mass/Vol] 122 mg/dL Critically high 74-[address] [facility] Comment on above: Performed By: #### C MP #### [facility] [address] [address] [address] Shelby Rodriguez Potassium [Moles/Vol] 4.8 mmol/L Normal 3.5-5.1 [facility] Comment on above: Performed By: #### C MP #### [facility] [address] [address] [address] Shelby Rodriguez Protein [Mass/Vol] 7.1 g/dL Normal 6.4-8.2 [facility] Comment on above: Performed By: #### C MP #### [facility] [address] [address] [address] Shelby Rodriguez Sodium [Moles/Vol] 141 mmol/L Normal 136-145 [facility] Comment on above: Performed By: #### C MP #### [facility] [address] [address] [address] Shelby Rodriguez Urea nitrogen [Mass/Vol] 14.0 mg/dL Normal 7.0-18.0 [facility] Comment on above: Performed By: #### C MP #### [facility] [address] [address] [address] Shelby Rodriguez Urea nitrogen/Creatinine [Mass ratio] 16.1 mg/mg Normal [facility] Comment on above: Performed By: #### C MP #### [facility] [address] [address] [address] Shelby Rodriguez Vital Signs Date Time Vital Sign Value Performing Clinician Facility 11-28-2023 15:41-0400 Body height 149.9 cm Benny Kang MD Work Phone: [facility] 11-28-2023 15:41-0400 Body mass index (BMI) [Ratio] 25.45 kg/m2 Benny Kang MD Work Phone: [facility] 11-28-2023 15:41-0400 Body weight 57.15 kg Benny Kang MD Work Phone: [facility] 11-28-2023 15:41-0400 Diastolic blood pressure 80 mm[Hg] Benny Kang MD Work Phone: [facility] 11-28-2023 15:41-0400 Heart rate 66 /min Benny Kang MD Work Phone: [facility] 11-28-2023 15:41-0400 Systolic blood pressure 130 mm[Hg] Benny Kang MD Work Phone: [facility] 09-24-2023 18:05-0500 Body height 149.9 cm Shaikh Jerrell SINGLETARY Work Phone: [facility] 09-24-2023 18:05-0500 Body mass index (BMI) [Ratio] 24.64 kg/m2 Shaikh Jerrell SINGLETARY Work Phone: [facility] 09-24-2023 18:05-0500 Body temperature 97 [degF] Shaikh Jerrell SINGLETARY Work Phone: [facility] 09-24-2023 18:05-0500 Body weight 55.34 kg Shaikh Jerrell SINGLETARY Work Phone: [facility] 09-24-2023 18:05-0500 Diastolic blood pressure 80 mm[Hg] Shaikh Jerrell SINGLETARY Work Phone: [facility] 09-24-2023 18:05-0500 Heart rate 90 /min Shaikh Jerrell SINGLETARY Work Phone: [facility] 09-24-2023 18:05-0500 SaO2% (BldA) [Mass fraction] 97 % Shaikh Jerrell SINGLETARY Work Phone: [facility] 09-24-2023 18:05-0500 Systolic blood pressure 132 mm[Hg] Shaikh Jerrell SINGLETARY Work Phone: [facility] 03-30-2023 10:39-0400 Body height 149.86 cm Shaikh Chikawad Work Phone: [facility] 250 DO Work Phone: 03-30-2023 10:39-0400 Body mass index (BMI) [Ratio] 26.86 kg/m2 Khan Fawwad Work Phone: [facility] 250 DO Work Phone: 03-30-2023 10:39-0400 Body surface area Derived from formula 1.55 m2 Shaikh Chikawad Work Phone: [facility] 250 DO Work Phone: 03-30-2023 10:39-0400 Body weight 60.33 kg Shaikh Chikawad Work Phone: [facility] 250 DO Work Phone: 03-30-2023 10:39-0400 Diastolic blood pressure 70 mm[Hg] Khan Fawwad Work Phone: [facility] 250 DO Work Phone: 03-30-2023 10:39-0400 Heart rate 76 /min Shaikh Mary Bethwwad Work Phone: [facility] 250 DO Work Phone: 03-30-2023 10:39-0400 Systolic blood pressure 122 mm[Hg] Khan Fawwad Work Phone: [facility] 250 DO Work Phone: 01-26-2023 11:30-0400 Diastolic blood pressure 92 mm[Hg] Khan Fawwad Work Phone: [facility] 250 DO Work Phone: 01-26-2023 11:30-0400 Systolic blood pressure 164 mm[Hg] Khan Fawwad Work Phone: [facility] 250 DO Work Phone: 01-26-2023 11:29-0400 Body height 149.86 cm Shaikh Chikawad Work Phone: [facility] 250 DO Work Phone: 01-26-2023 11:29-0400 Body mass index (BMI) [Ratio] 26.66 kg/m2 Shaikh Chikawad Work Phone: [facility] 250 DO Work Phone: 01-26-2023 11:29-0400 Body surface area Derived from formula 1.55 m2 Shaikh Chikawad Work Phone: [facility] 250 DO Work Phone: 01-26-2023 11:29-0400 Body weight 59.88 kg Shaikh Gavid Work Phone: [facility] 250 DO Work Phone: 01-26-2023 11:29-0400 Diastolic blood pressure 100 mm[Hg] Shaikh Chikawad Work Phone: [facility] 250 DO Work Phone: 01-26-2023 11:29-0400 Heart rate 91 /min Shaikh Chikawad Work Phone: [facility] 250 DO Work Phone: 01-26-2023 11:29-0400 Systolic blood pressure 184 mm[Hg] Shaikh Mary Bethwwad Work Phone: [facility] 250 DO Work Phone: Encounters Encounter Date Encounter Type Care Provider Facility Start: 12-31-2023 End: 12-31-2023 ambulatory SHAIKH JERRELL Not Available Start: 11-28-2023 End: 11-28-2023 [facility] Start: 11-28-2023 End: 11-28-2023 Office outpatient visit 15 minutes Benny Kang MD Work Phone: [facility] Comment on above: Shortness of breath (Primary Dx); Essential hypertension; Mixed hyperlipidemia; Fmqsn-7-rfammdbkqeg deficiency (Multi); Centrilobular emphysema (Multi); Former smoker; BMI 25.0-25.9,adult Start: 11-14-2023 End: 11-14-2023 ambulatory SHAIKH JERRELL Not Available Start: 09-24-2023 End: 09-24-2023 Office outpatient visit 15 minutes Shaikh Jerrell SINGLETARY Work Phone: [facility] Comment on above: Current moderate epi sode of major depressive disorder without prior episode (HCC) (CMS/HCC) (Primary Dx) Start: 09-24-2023 End: 09-24-2023 Orders Only Shaikh Jerrell SINGLETARY Work Phone: [facility] Comment on above: Primary hypertension (CMS/HCC) (Primary Dx) Start: 08-23-2023 End: 08-23-2023 ambulatory SHAIKH JERRELL Not Available Start: 08-02-2023 Patient encounter procedure Shaikh Jerrell SINGLETARY Work Phone: [facility] Start: 08-02-2023 End: 08-02-2023 ambulatory SHAIKH JERRELL Not Available Start: 03-30-2023 Office outpatient vi sit 15 minutes Shaikh Jerrell Work Phone: [facility] 250 DO Work Phone: Start: 03-30-[address] Benny Kang Facility: Start: 03-11-2023 Chart Update [facility]rell [facility] DO Work Phone: Start: 03-10-2023 Chart Update Shaikh Jerrell Work Phone: [facility] DO Work Phone: Start: 03-09-[address] Benny Kang Facility:[id number] Start: 01-26-2023 Office consultation new/estab patient 60 min Shaikh Jerrell Work Phone: [facility] 250 DO Work Phone: Start: 01-26-[address] Benny Kang Facility:[id number] Start: 01-02-2023 ambulatory ÁLVAROJOANIE HUTSON . Facility : Start: 10-17-2022 End: 10-18-2022 ambulatory ÁLVARO DENNYSSA . Facility:H1 Start: 08-16-2022 End: 08-17-2022 ambulatory ÁLVAROJOANIE HUTSON . Facility:[facility]1 Start: 04-20-2022 End: 04-21-2022 ambulatory SHAIKH Natasha ALLAN Facility: Procedures Date Procedure Procedure Detail Performing Clinician [...] Screening for malign ant neoplasm of colon [facility] Start: 09-02-2024 End: 09-02-2024 Patient encounter procedure 09/02/2024 1:30 PM EST Office Visit [facility] [address] [facility] [address] [place] [id number] Benny Kang MD [address] [facility] [address] [place] [address] [facility] Start: 08-02-2024 Medicare Annual Well ness (AWV) Medicare Annual Wellness (AWV) [facility] Start: 03-04-2024 Screening for malign ant neoplasm of breast Mammogram [facility] Start: 11-22-2023 End: 11-22-2023 Patient encounter procedure 11/22/2023 11:30 AM EDT Office Visit [facility] [address] [place] [address] Shaikh Allan MD [address] [place] [id number] [facility] Start: 10-05-2023 FUV, Provider: Benny Kang, Status: Pen, Time: 9:20 AM FUV, Provider: Benny Kang, Status: Pen, Time: 9:20 AM [facility] 250 DO Work Phone: Start: 09-24-2023 End: 09-24-2023 Patient encounter procedure 09/24/2023 5:45 PM EST Office Visit [facility] [address] [place] [address] Shaikh Allan MD [address] [place] [id number] [facility] Start: 04-13-2023 COVID-19 Vaccine ( season) COVID-19 Vaccine ( season) [facility] Start: 03-30-2023 FUV, Provider: Benny Kang, Status: Pen, Time: 10:30 AM FUV, Provider: Benny Kang, Status: Pen, Time: 10:30 AM -[facility] 250 DO Work Phone: Start: 03-09-2023 ECHO, Provider: JOHN PAUL YANIQUE [facility] ULTRASOUND 01,[id number], Status: Pen, Time: 10:45 AM ECHO, Provider: [place] [facility] ULTRASOUND 01,[id number], Status: Pen, Time: 10:45 AM -[facility] 250 DO Work Phone: Start: 03-09-2023 STRESS NUC, Provider : [place] [facility] NUCLEAR 01,[id number], Status: Pen, Time: 8:30 AM STRESS NUC, Provider: [place] [facility] NUCLEAR 01,[id number], Status: Pen, Time: 8:30 AM [facility] 250 DO Work Phone: Start: 04-26-2021 DTaP/Tdap/Td Vaccine s (1 - Tdap) DTaP/Tdap/Td Vaccines (1 - Tdap) [facility] Start: 2013 Hepatitis B Vaccines (1 of 3 - Risk 3-dose series) Hepatitis B Vaccines (1 of 3 - Risk 3-dose series) [facility] Start: 1993 Screening for malign ant neoplasm of breast Mammogram [facility] Start: 1972 Hepatitis A Vaccines (1 of 2 - Risk 2-dose series) Hepatitis A Vaccines (1 of 2 - Risk 2-dose series) [facility] Start: 1971 Diabetes mellitus screening Diabetes Screening [facility] Start: 1971 Hepatitis C screening Hepatitis C Sc reening [facility] Start: 1955 Lipid panel Lipid Panel [facility] Start: 1955 Medicare Annual Well ness Visit Medicare Annual Wellness Visit (AWV) [facility] Start: 1955 Screening for malign ant neoplasm of colon [facility] Start: 1955 Screening for osteoporosis Bone Density Scan [facility] Immunizations Immunization Date Immunization Notes Care Provider [facility] 05-26-2023 ABRYSVO - Respirator y syncytial virus (RSV), vaccine, bivalent, protein subunit RSV prefusion F, diluent reconstituted, 0.5 mL, PF Shaikh Jerrell SINGLETARY Work Phone: [facility] 05-24-2023 Influenza, High-dose Seasonal, Quadrivalent, Preservative Free Shaikh Jerrell SINGLETARY Work Phone: [facility] 05-24-2023 Pneumococcal Conjuga te PCV 20 Shaikh Jerrell SINGLETARY Work Phone: [facility] 05-03-2023 pneumococcal conjuga te 20-valent (Prevnar 20) 0.5 ML vaccine Shaikh Jerrell SINGLETARY Work Phone: [facility] 10-27-2022 zoster vaccine recombinant [facility]ikh Jerrell [facility] Work Phone: 08-27-2022 zoster vaccine recombinant Shaikh Jerrell [facility] DO Work Phone: 06-03-2022 Fluzone High-Dose Quadrivalent 0.7 ML Intramuscular Suspension Prefilled Syringe Shaikh Jerrell Work Phone: [facility] DO Work Phone: 06-03-2022 influenza, seasonal, injectable Benny Kang MD Work Phone: [facility] Work Phone: 08-03-2021 Pfizer-BioNTTapTrak COVID-19 Vacc 30 MCG/0.3ML Intramuscular Suspension Shaikh Jerrell Work Phone: [facility] 250 DO Work Phone: 06-02-2021 Fluzone High-Dose Quadrivalent 0.7 ML Intramuscular Suspension Prefilled Syringe Khan Fawwad Work Phone: [facility] 250 DO Work Phone: 04-25-2021 diphtheria, tetanus toxoids and pertussis vaccine Khan Chikawad Work Phone: [facility] 04-25-2021 tetanus and diphther ia toxoids, adsorbed, preservative free, for adult use (2 Lf of tetanus toxoid and 2 Lf of diphtheria toxoid) Benny Kang MD Work Phone: [facility] Work Phone: 12-23-2020 Pfizer-BioNTech COVID-19 Vacc 30 MCG/0.3ML Intramuscular Suspension Khan Fawwad Work Phone: [facility] 250 DO Work Phone: 12-02-2020 Pfizer-BioNTech COVID-19 Vacc 30 MCG/0.3ML Intramuscular Suspension Khan Chikawad Work Phone: [facility] 250 DO Work Phone: 07-21-2014 influenza, seasonal, injectable Khan Chikawad Work Phone: [facility] 250 DO Work Phone: 06-21-2013 influenza, seasonal, injectable Khan Fawwad Work Phone: [facility] 250 DO Work Phone: 08-31-2012 influenza, seasonal, injectable, preservative free Khan Fawwad Work Phone: [facility] 250 DO Work Phone: Payers Date Payer Category Payer Medicare [id number] 1961 Medicare [id number] 1961 Private Health Insurance [facility] [id number] 1955 Unknown [id number] 1955 Unknown [id number] [id number] 1955 Unknown [id number] 2.16.84 [id number] 1955 Unknown [id number] 2.16.84 [id number] 1955 Unknown [id number] 2.16. [id number] 1955 Unknown [id number] 2.16. 840.1.109356.3.579.2.356 1955 Unknown [id number] 2.16. 840.1.180367.3.579.2.356 1955 Unknown [id number] 2.16.8 40.1.362119.3.579.2.1068 1955 Unknown [id number] 2.16.8 40.1.319923.3.579.2.1244 1955 Unknown [id number] 2.16.84 0.1.370108.3.579.2.1259 1955 Unknown [id number] 2.16.84 0.1.150679.3.579.2.1259 1955 Unknown [id number] 2.16.84 0.1.172365.3.579.2.1259 1955 Unknown [id number] 2.16.84 [id number] 1955 Unknown [id number] 2.16.840 .[id number] Private Health Insurance MEB [id number] Unknown Social History Date Type Detail Facility Start: 08-29-2023 End: 11-28-2023 No caffeine use No caffeine use [facility] DO Work Phone: Start: 08-29-2023 End: 11-28-2023 Tobacco smoking status NHIS Ex-smoker [facility] End: 06-28-2020 History of tobacco use Current smoker [facility] End: 06-28-2020 History of tobacco use Cigarette Smoker [facility] Start: 08-29-2023 End: 11-28-2023 Tobacco use and exposure Smokeless tobacco non-user [facility] Start: 08-29-2023 End: 11-28-2023 Alcohol intake Lifetime non-drinker (finding) [facility] Start: 08-29-2023 End: 11-28-2023 Tobacco use panel [facility] Start: 07-18-2023 Alcohol Comment caffeine: 1-2 cups per day [facility] Start: 1955 Sex Assigned At Not on file [facility] Start: 11-18-2023 End: 11-28-2023 Exposure to SARS-CoV-2 (event) Not sure [facility] NEGATED: Highlighted rowStart: BERNARDO History of tobacco use Passive smoker [facility] History of Present illness Narrative [...] Up In Cardiology 3. Mixed hyperlipidemia 4. Rzzzf-0-nhyzjyekmzs deficiency (Multi) 5. Centrilobular emphysema (Multi) 6. Former smoker 7. BMI 25.0-25.9,adult Scribe Attestation By signing my name below, I, Anurag Roe LPN attest that this documentation has been prepared [...] discussion and plan. documented in this encounter [facility] Work Phone: Instructions 11-28-2023 Patient Instructions Note Date & Type Note Facility 11-28-2023 Rodolfo Roper LPN - 11/28/2023 2:50 PM EDT [...] instructions on exercise. documented in this encounter [facility] Work Phone: History of Present illness Narrative 09-24-2023 Shaikh Jerrell MD - 09/24/2023 6:31 PM Alberto Allan MD - 09/24/2023 5:45 PM EST [...] before bedtime. cholecalciferol (Vitamin D-3) 50 MCG (1999 [place]) [...] major depressive disorder without prior episode (HCC) ([facility]/HCC) - Primary Patient was seen last appointment [...] function test, lab work and remote echo1.[facility] [employer] DO Work Phone: Chief complaint Narrative - Reported Note Date & Type Note Facility Chief complaint Narrative - Reported SVETLANA SILVA is being seen for a consultation for shortness of breath. [facility] [employer] [facility] Work Phone: Evaluation note Note Date & Type Note Facility Evaluation note Diagnosis Primary hypertension (CMS/HCC)- Primary Unspecified essential hypertension documented in this encounter [facility] Evaluation note Note Date & Type Note Facility Evaluation note Diagnosis Current moderate episode of major depressive disorder without prior episode (HCC) (CMS/HCC)- Primary documented in this encounter [facility] Evaluation note Note Date & Type Note Facility Evaluation note Diagnosis Shortness of breath- Primary Essential hypertension Unspecified essential hypertension Mixed hyperlipidemia Osldw-8-ezoyxnyccvx deficiency (Multi) Yyrtt-1-jvpxamqxlei deficiency Centrilobular emphysema (Multi) Former smoker Personal history of tobacco use, presenting hazards to health BMI 25.0-25.9,adult documented in this encounter [facility] Work Phone: History of Present [...] her back in 6 months and follow-up [address] Work Phone: Reason for referral (narrative) Consultation (Routine) - Authorized Note Date & Type Note Facility Reason for referral (narrati ve) Specialty Diagnoses / Procedures Referred By Contac t Referred To Contact Cardiology Diagnoses Essential hypertension Procedures Follow Up In Cardiology Benny Kang MD [address] [place] [id number] Benny Kang MD [address] [place] [id number] Referral ID Status Reason Start Date Expiration Date V isits Requested Visits Authorized [id number] Authorized 11/28/2023 11/27/2024 1 1 [facility] Work Phone: Summary Purpose Family History No [...] content) DATE CREATED AUTHOR [facility]23[facility]2022 [facility] DATE CREATED AUTHOR AUTHOR'S ORGANIZ ATION 03/31/2023 [facility] DATE CREATED AUTHOR AUTHOR'S ORGANIZ ATION 03/31/2023 [facility] DATE CREATED AUTHOR AUTHOR'S ORGANIZ ATION 04/13/2023 [facility] DATE CREATED AUTHOR AUTHOR'S ORGANIZ ATION 11/30/2023 [facility] DATE CREATED AUTHOR AUTHOR'S ORGANIZ ATION 01/02/2024 [facility] EPIC Care Teams (unrecognized sec tion and content) Mounting Inspector Relationship Specialty Start Date End Date Shaikh Allan MD PCP - General Internal Medicine 06/07/23 Mounting Inspector Relationship Specialty Start Date End Date Shaikh Allan MD [address] [place] [address] PCP - General Internal Medicine 09/24/23 Mounting Inspector Relationship Specialty Start Date End Date Shaikh [...] BE BASED ON THE PRIMARY CLINICAL RECORDS. [employer] provides no warranty or guarantee of the accuracy or completeness of information in this document.
--- NOTE | 2024-01-13 18:48 | CT_ITS ---
The [address] [address] Patient Name: ANGELITA ADRIAN MRN: [id number] date: 1955 Sex: F Assigned Patient Location: ER Current Patient Location: ER Accession/Order Number: [id number] Exam Date: 01/13/2024 19:30 Report Date: 01/13/2024 20:21 At the request of: DEVIKA VICENTE Procedure: CT abdomen pelvis wo con EXAM: CT abdomen pelvis wo con HISTORY: Hematuria COMPARISON: None. TECHNIQUE: Unenhanced axial CT of the abdomen and pelvis was performed with coronal and sagittal reformats provided. FINDINGS: Lung bases: Clear. ABDOMEN: Liver: Normal. Gallbladder/biliary: Normal. Pancreas: Normal. Spleen: Normal. Adrenals: Normal. Kidneys, ureters and urinary bladder: The kidneys and ureters have a normal noncontrast appearance. There is asymmetric focal thickening of the left urinary bladder wall measuring up to 2.1 cm concerning for malignancy. Pelvis: Status post hysterectomy. No adnexal masses. Vasculature: Calcific atherosclerosis of the abdominal aorta which is normal caliber. Hollow viscera/retroperitoneum: Normal appearance of the gastroesophageal junction. Small bowel is normal caliber. There are numerous colonic diverticula noted without evidence of acute diverticulitis. The appendix is not visualized. No mesenteric or pelvic lymphadenopathy. No intra-abdominal free fluid or free air. Musculoskeletal/soft tissues: Soft tissues are within normal limits. No acute or aggressive osseous abnormality. Grade 1 anterolisthesis at L3-4. CT/CT abdomen pelvis wo con IMPRESSION: Left bladder wall masslike thickening concerning for malignancy. Recommend urology consultation. Colonic diverticulosis. Electronically authenticated by: SUSHILA IZAGUIRRE Date: 01/13/2024 20:21
--- NOTE | 2024-01-13 18:49 | ED.FEMALEGU1 ---
HPI - Female Genitourinary General Chief complaint: Urogenital-Female Stated complaint: Hematuria Time Seen by Provider: 01/13/24 18:36 Source: patient Mode of arrival: walk-in History of Present Illness HPI Narrative: Patient is a 68-year-old female with a history of COPD who presents to the emergency department for the evaluation of hematuria that has been present over the last week. She states she was noticing a red blood with urination although she was not absolutely sure that it was Hematuria versus vaginal bleeding. She has had a previous partial hysterectomy. She believes she is on a blood thinner. She has had no fevers or vomiting. She reports associated dysuria and pelvic pain. She was seen by her PCP and started on Keflex on 12/31/2023 as well as Macrobid on 01/03/2024 and was told to finish both antibiotics. She states she continues to have the symptoms and is now passing clots. No flank or back pain. Related Data Home Medications ?Medication ?Instructions ?Recorded ?Confirmed alendronate 70 mg tablet 70 mg PO .ONCE WEEKLY 08/14/23 09/09/23 amlodipine 5 mg tablet 5 mg PO QDAY 08/14/23 09/09/23 arformoterol 15 mcg/2 mL solution 15 mcg inhalation Q12H 08/14/23 08/14/23 for nebulization atorvastatin 40 mg tablet 40 mg PO BEDTIME 08/14/23 09/09/23 budesonide 0.5 mg/2 mL suspension 0.5 mg inhalation BID 08/14/23 09/09/23 for nebulization cholecalciferol (vitamin D3) 50 mcg PO DAILY 08/14/23 09/09/23 losartan 100 mg tablet 100 mg PO DAILY 08/14/23 09/09/23 magnesium 200 mg tablet 200 mg PO DAILY 08/14/23 09/09/23 meloxicam 7.5 mg tablet 7.5 mg PO DAILY 08/14/23 09/09/23 multivitamin 1 tab PO DAILY 08/14/23 09/09/23 pantoprazole 40 mg tablet,delayed 40 mg PO DAILY 08/14/23 09/09/23 release potassium gluconate 595 mg (99 mg) 595 mg PO DAILY 08/14/23 09/09/23 tablet pramipexole 0.5 mg tablet 0.5 mg PO BEDTIME 08/14/23 09/09/23 revefenacin 175 mcg/3 mL solution 175 mcg inhalation DAILY 08/14/23 09/09/23 for nebulization (Yupesidneyi) Previous Rx's ?Medication ?Instructions ?Recorded metoprolol succinate 100 mg 100 mg PO DAILY #30 tabs 08/16/23 tablet,extended release 24 hr azithromycin 250 mg tablet See Rx Instructions PO .COMPLEX #6 09/09/23 (Zithromax Z-Uri) tabs hydrocodone 5 mg-acetaminophen 325 1 tab PO Q6H PRN pain 3 days #12 01/13/24 mg tablet tabs Allergies Allergy/AdvReac Type Severity Reaction Status Date / Time codeine AdvReac Severe Nausea Verified 08/14/23 10:22 Review of Systems ROS Constitutional Denies: fever or chills Ears, nose, mouth, and throat Denies: throat pain or nasal congestion Respiratory Denies: shortness of breath Gastrointestinal Reports: abdominal pain; Denies: nausea or vomiting Genitourinary Reports: painful urination and blood in urine Musculoskeletal Denies: back pain Integumentary/Breast Denies: rash Hematologic/Lymphatic Denies: easy bruising or easy bleeding [facility] Medical History (Updated 01/13/24 @ 20:45 by NOAH Echevarria) Anxiety and depression ?F41.9 - Anxiety disorder, unspecified (ICD-10) ?F32.A - Depression, unspecified (ICD-10) Restless legs ?G25.81 - Restless legs syndrome (ICD-10) Osteoporosis ?M81.0 - Age-related osteoporosis without current pathological fracture (ICD-10) Hyperlipidemia ?E78.5 - Hyperlipidemia, unspecified (ICD-10) HTN (hypertension) ?I10 - Essential (primary) hypertension (ICD-10) COPD (chronic obstructive pulmonary disease) ?J44.9 - Chronic obstructive pulmonary disease, unspecified (ICD-10) 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 - Disease of appendix, unspecified (ICD-10) Normal colonoscopy Hernia of abdominal wall ?K43.9 - Ventral hernia without obstruction or gangrene (ICD-10) Cataract ?H26.9 - Unspecified cataract (ICD-10) Surgical History (Updated 08/14/23 @ 13:21 by Antoinette Ellis) History of partial hysterectomy ?Z90.711 - Acquired absence of uterus with remaining cervical stump (ICD-10) Social History Smoking status: Former smoker Non-prescribed substance use: denies use Previous occupational history: retired Highest level of school completed/degree received: 9th grade Exam Narrative Exam Narrative: Gen.: Awake, alert, in no distress Head: Normocephalic, atraumatic ENT: Moist mucous membranes Respiratory: No respiratory distress Gastrointestinal: Abdomen is soft, nondistended and nontender to palpation Extremities: Moves extremities equally Psych: Normal mood and affect Neuro: No focal neuro deficit Skin: Warm, dry, intact Constitutional Vital Signs, click to edit/add: Last Vital Signs Temp 99.0 F 01/13/24 18:38 Pulse 101 H 01/13/24 20:25 Resp 22 H 01/13/24 20:25 BP 156/60 H 01/13/24 20:25 Pulse Ox 92 L 01/13/24 20:25 O2 Del Method Room Air 01/13/24 20:25 Course Vital Signs Vital signs: Vital Signs Temperature 99.0 F 01/13/24 18:38 Pulse Rate 115 H 01/13/24 18:38 Respiratory Rate 18 01/13/24 18:38 Blood Pressure 154/100 H 01/13/24 18:38 Pulse Oximetry 95 01/13/24 18:38 Oxygen Delivery Method Room Air 01/13/24 18:38 Temperature 99.0 F 01/13/24 18:38 Pulse Rate 101 H 01/13/24 20:25 Respiratory Rate 22 H 01/13/24 20:25 Blood Pressure 156/60 H 01/13/24 20:25 Pulse Oximetry 92 L 01/13/24 20:25 Oxygen Delivery Method Room Air 01/13/24 20:25 MDM - Female Genitourinary MDM Narrative Medical decision making narrative: Lab studies are stable, patient with gross hematuria on urine catheter specimen but no evidence of UTI at this time. CT of the abdomen and pelvis without contrast shows the patient has a masslike area in the bladder consistent with possible malignancy. I discussed the case with Dr. Morse for urology and he recommended outpatient follow-up in the next 5 to 7 days. Patient was given urology referral. She is hemodynamically stable at this time. She is able to pass urine. Return to the ER if symptoms change or worsen. Medical Records Attestation: I reviewed the patient's medical records. Lab Data Attestation: I reviewed the patient's lab results. Labs: Lab Results 01/13/24 01/13/24 Range/Units 18:52 19:25 WBC 8.5 (4.0-11.0) 10^3/uL RBC 4.31 (4.20-5.40) 10^6/uL Hgb 12.0 (12.0-16.0) g/dL Hct 38.3 (36.0-48.0) % MCV 88.9 (81.0-99.0) fL MCH 27.8 (26.7-34.0) pg MCHC 31.3 (29.9-35.2) g/dL RDW 13.5 (11.0-15.0) % Plt Count 290 (150-450) 10^3/uL MPV 9.6 (9.5-13.5) fL Neut % (Auto) 72.2 (43.0-75.0) % Lymph % (Auto) 13.5 L (20.5-60.0) % Bradford % (Auto) 9.0 (1.7-12.0) % Eos % (Auto) 4.2 (0.9-7.0) % Baso % (Auto) 0.9 (0.2-2.0) % Neut # (Auto) 6.2 (1.4-6.5) 10^3/uL Lymph # (Auto) 1.2 (1.2-3.8) 10^3/uL Bradford # (Auto) 0.8 (0.3-0.8) 10^3/uL Eos # (Auto) 0.4 (0.0-0.7) 10^3/uL Baso # (Auto) 0.1 (0.0-0.1) 10^3/uL Abs Immat Gran (auto) 0.02 (0.00-0.03) 10^3/uL Imm/Tot Granulo (auto) 0.2 (0.0-0.5) % PT 10.4 (9.0-11.6) sec INR 0.98 VBG pH 7.430 (7.330-7.430) VBG pCO2 44.4 (40.0-52.0) mmHg Sodium 137 (136-145) mmol/L Potassium 3.4 L (3.5-5.1) mmol/L Chloride 100 (98-107) mmol/L Carbon Dioxide 28.8 (21.0-32.0) mmol/L Anion Gap 11.6 BUN 11.0 (7.0-18.0) mg/dL Creatinine 0.82 (0.55-1.02) mg/dL Est GFR ( Amer) >60 (>=60) Est GFR (Non-Af Amer) >60 (>=60) BUN/Creatinine Ratio 13.4 Glucose 105 (74-106) mg/dL Lactate 0.5 (0.4-2.0) mmol/L Calcium 9.0 (8.5-10.1) mg/dL Total Bilirubin 0.5 (0.2-1.0) mg/dL AST 22 (15-37) U/L ALT 33 (14-59) U/L Alkaline Phosphatase 85 (46-116) U/L Total Protein 6.9 (6.4-8.2) g/dL Albumin 3.6 (3.4-5.0) g/dL Globulin 3.3 g/dL Albumin/Globulin Ratio 1.1 Urine Color Red A (YELLOW) Urine Clarity Clear (CLEAR) Urine pH Color interference A (5.0-9.0) Ur Specific Patriot Color interference A (1.005-1.025) Urine Protein Color interference A (NEG/TRACE) mg/dL Urine Glucose (UA) Color interference A (NEGATIVE) mg/dL Urine Ketones Color interference A (NEGATIVE) mg/dL Urine Occult Blood Color interference A (NEGATIVE) Urine Nitrite Color interference A (NEGATIVE) Urine Bilirubin Color interference A (NEGATIVE) Urine Urobilinogen Color interference A (0.2-1.0) EU/dL Ur Leukocyte Esterase Color interference A (NEGATIVE) Urine RBC >100 A (0-2) #/HPF Urine WBC None seen (NONE SEEN) #/HPF Ur Squamous Epith Cells None seen (NONE/RARE) #/LPF Urine Crystals None seen (None Seen) #/HPF Urine Bacteria None seen (NONE SEEN) #/HPF Urine Casts None seen (NONE SEEN) #/LPF Urine Mucus None seen (NONE SEEN) Ur Culture Indicated? Yes Imaging Data CT scan - abdomen: Attestation: I have reviewed the pertinent imaging results. Radiologist's impression: ITS Impressions Abdomen/Pelvis CT 01/13/24 18:48 IMPRESSION: Left bladder wall masslike thickening concerning for malignancy. Recommend urology consultation. Colonic diverticulosis. Electronically authenticated by: SUSHILA IZAGUIRRE Date: 01/13/2024 20:21 Discharge Plan Discharge Stand Alone Forms: Portal Instructions Chief Complaint: Urogenital-Female Clinical Impression: Bladder mass, Hematuria Patient Disposition: Home, Self-Care Time of Disposition Decision: 20:45 Condition: Good Prescriptions / Home Meds: New hydrocodone-acetaminophen 5-325 mg tablet 1 tab PO Q6H PRN (Reason: pain) 3 Days Qty: 12 0RF Rx Instructions: DX: R10.9 No Action alendronate 70 mg tablet 70 mg PO .ONCE WEEKLY atorvastatin 40 mg tablet 40 mg PO BEDTIME amlodipine 5 mg tablet 5 mg PO QDAY losartan 100 mg tablet 100 mg PO DAILY meloxicam 7.5 mg tablet 7.5 mg PO DAILY pantoprazole 40 mg tablet,delayed release (DR/EC) 40 mg PO DAILY pramipexole 0.5 mg tablet 0.5 mg PO BEDTIME Rx Instructions: 2 hours before bedtime potassium gluconate 595 mg (99 mg) tablet 595 mg PO DAILY cholecalciferol (vitamin D3) 50 mcg PO DAILY magnesium 200 mg tablet 200 mg PO DAILY multivitamin Tablet 1 tab PO DAILY Yupelri 175 mcg/3 mL solution for nebulization 175 mcg inhalation DAILY arformoterol 15 mcg/2 mL solution for nebulization 15 mcg inhalation Q12H budesonide 0.5 mg/2 mL suspension for nebulization 0.5 mg inhalation BID metoprolol succinate 100 mg tablet extended release 24 hr 100 mg PO DAILY Qty: 30 0RF azithromycin [Zithromax Z-Uri] 250 mg tablet See Rx Instructions .ROUTE .COMPLEX Qty: 6 0RF Rx Instructions: For 250 mg dose pack: take 500 mg today (day 1), then 250 mg for 4 days (days 2-5) Print Language: Luxembourgish Instructions: Hematuria (ED) Additional Instructions: If you have any difficulty getting into the [facility] office, please call Dr. Allan's office for assistance; you may also call Dr. Zeng in [facility] [phone] Referrals: Brett Tong MD [Physician] - As soon as possible Shaikh Allan MD [Primary Care Provider] - 1 week
[2024-01-13 19:02] LABS: PCO2 VBG 44.4 mmHg (40.0-52.0)
[2024-01-13 19:04] LABS: Basophils Absolute Auto 0.1 10^3/uL (0.0-0.1); Basophils Percent Auto 0.9 % (0.2-2.0); Eosinophils Absolute Auto 0.4 10^3/uL (0.0-0.7); Eosinophils Percent Auto 4.2 % (0.9-7.0); Hematocrit 38.3 % (36.0-48.0); Immature Granulocytes Abs Auto 0.02 10^3/uL (0.00-0.03); Immature Granulocytes Pct Auto 0.2 % (0.0-0.5); Lymphocytes Absolute Auto 1.2 10^3/uL (1.2-3.8); Lymphocytes Percent Auto 13.5 % (20.5-60.0); Mean Corpuscular HGB Conc 31.3 g/dL (29.9-35.2); Mean Corpuscular Hemoglobin 27.8 pg (26.7-34.0); Mean Corpuscular Volume 88.9 fL (81.0-99.0); Mean Platelet Volume 9.6 fL (9.5-13.5); Monocytes Absolute Auto 0.8 10^3/uL (0.3-0.8); Neutrophils Absolute Auto 6.2 10^3/uL (1.4-6.5); Neutrophils Percent Auto 72.2 % (43.0-75.0); Platelet Count 290 10^3/uL (150-450); Red Blood Count 4.31 10^6/uL (4.20-5.40); Red Cell Distribution Width 13.5 % (11.0-15.0); White Blood Count 8.5 10^3/uL (4.0-11.0)
[2024-01-13 19:18] LABS: INR 0.98; Prothrombin Time 10.4 sec (9.0-11.6)
[2024-01-13 19:23] LABS: Lactate/Lactic Acid 0.5 mmol/L (0.4-2.0)
[2024-01-13 19:29] LABS: Alanine Aminotransferase 33 U/L (14-59); Albumin Globulin Ratio 1.1; Albumin Level 3.6 g/dL (3.4-5.0); Alkaline Phosphatase 85 U/L (46-116); Anion Gap 11.6; Aspartate Amino Transferase 22 U/L (15-37); BUN Creatinine Ratio 13.4; Bilirubin Total 0.5 mg/dL (0.2-1.0); Carbon Dioxide 28.8 mmol/L (21.0-32.0); Chloride 100 mmol/L (98-107); Estimated GFR (African America >60 (>=60); Estimated GFR (Non-African Ame >60 (>=60); Globulin 3.3 g/dL; Glucose 105 mg/dL (74-106); Potassium 3.4 mmol/L (3.5-5.1); Sodium 137 mmol/L (136-145); Total Protein 6.9 g/dL (6.4-8.2)
[2024-01-13 19:37] LABS: Color Urine RED (YELLOW)
[2024-01-13 19:38] LABS: Bilirubin Urine COLOR INTERFERENCE (NEGATIVE); Blood Urine COLOR INTERFERENCE (NEGATIVE); Clarity Urine CLEAR (CLEAR); Glucose Urine UA COLOR INTERFERENCE mg/dL (NEGATIVE); Ketones Urine COLOR INTERFERENCE mg/dL (NEGATIVE); Leukocyte Esterase Urine COLOR INTERFERENCE (NEGATIVE); Nitrite Urine COLOR INTERFERENCE (NEGATIVE); Protein Urine COLOR INTERFERENCE mg/dL (NEG/TRACE); Specific Gravity Urine COLOR INTERFERENCE (1.005-1.025); Urine Microscopic Indicated YES; Urobilinogen Urine COLOR INTERFERENCE EU/dL (0.2-1.0); pH Urine COLOR INTERFERENCE (5.0-9.0)
[2024-01-13] MEDS: 0.9 % SODIUM CHLORIDE 1,000 ML 999 ML IV (19:38)
[2024-01-13 19:47] LABS: WBC Urine NONE SEEN #/HPF (NONE SEEN)
[2024-01-13 19:48] LABS: Bacteria Urine NONE SEEN #/HPF (NONE SEEN); Cast Seen? NONE SEEN #/LPF (NONE SEEN); Crystals Seen? None Seen #/HPF (None Seen); Mucus Urine NONE SEEN (NONE SEEN); RBC Urine >100 #/HPF (0-2); Squamous Epithelial Cell Urine NONE SEEN #/LPF (NONE/RARE); Urine Culture Indicated YES
[2024-01-13] MEDS: PHENAZOPYRIDINE 100 MG TABLET 200 MG PO (19:51)
[2024-01-13 20:25] VITALS: BP 156/60; PULSE 101; O2SAT 92
[2024-01-13] MEDS: ALBUTEROL SULFATE 2.5 MG/3 ML VIAL NEB IH (20:40)
[2024-01-13 20:41] VITALS: O2SAT 97
[2024-01-13] MEDS: HYDROCODONE/ACET 5-325 MG TABLET 2 TAB PO (21:20)
== END 2024-01-13 21:22 | disposition home or self-care (01) ==
PROVIDERS: Physician Assistant; Emergency Provider Emergency Medicine; PCP Internal Medicine
DX: N32.9 Bladder disorder, unspecified (principal); R31.9 Hematuria, unspecified; J44.9 Chronic obstructive pulmonary disease, unspecified; Z87.891 Personal history of nicotine dependence
CPT/HCPCS: 36415; 74176; 80053; 81001; 82800; 83605; 85025; 85610; 87040; 87086; 94640; 99285

== ENCOUNTER 2024-01-17 13:50 | Outpatient (OUT) | payer MEDICARE, SELFPAY ==
--- NOTE | 2024-01-17 14:07 | CT_ITS ---
The [address] [address] Patient Name: ANGELITA ADRIAN MRN: [id number] date: 1955 Sex: F Assigned Patient Location: [facility] Current Patient Location: [facility] Accession/Order Number: [id number] Exam Date: 01/17/2024 14:40 Report Date: 01/17/2024 15:25 At the request of: ALBERTO JIANG Procedure: CT abdomen pelvis w con CT ABDOMEN/PELVIS WITH IV CONTRAST. INDICATION: Hematuria. COMPARISON: There are no other studies available for comparison. TECHNIQUE: Contiguous axial images were obtained from the lung bases to the pelvic floor following the intravenous administration of contrast. Coronal and sagittal reformations are provided. FINDINGS: LOWER LUNGS: Clear. LIVER/BILIARY TREE: No mass. No intrahepatic ductal dilatation. GALLBLADDER: No significant gallbladder wall thickening. No radiopaque stone. CBD: Normal CBD. SPLEEN: Normal in size. PANCREAS: No acute findings. No peripancreatic fluid or inflammation. No pancreatic duct dilatation. No discrete mass. ADRENALS: Normal. KIDNEYS: No hydronephrosis. No radiopaque calculus. STOMACH AND BOWEL: Stomach is unremarkable. No dilated bowel loops. No bowel wall thickening. APPENDIX: Not visualized. PERITONEAL CAVITY: No fluid. No fat stranding. ABDOMINAL WALL: No subcutaneous stranding. No subcutaneous fluid collection. LYMPH NODES: No mesenteric or retroperitoneal lymphadenopathy by CT criteria. ABDOMINAL AORTA: No aneurysm. PELVIS: There is an irregular mass along the left bladder wall measuring approximately 4.8 x 2.1 cm. MUSCULOSKELETAL: No acute osseous abnormality. CT/CT abdomen pelvis w con IMPRESSION: 1. Irregular 4.8 cm mass along the left bladder wall suggestive of neoplasm. Recommend cystoscopy. 2. No obstructive uropathy.. Electronically authenticated by: TIERRA PRICE Date: 01/17/2024 15:25
--- NOTE | 2024-01-17 14:08 | XR_ITS ---
The [address] [address] Patient Name: ANGELITA ADRIAN MRN: [id number] date: 1955 Sex: F Assigned Patient Location: [facility] Current Patient Location: [facility] Accession/Order Number: [id number] Exam Date: 01/17/2024 14:35 Report Date: 01/17/2024 15:30 At the request of: ALBERTO JIANG Procedure: XR chest 2V EXAMINATION: XR chest 2V HISTORY: COPD COMPARISON: XR chest 09/01/2023 FINDINGS: LUNGS: Hyperexpanded lungs without appreciable infiltrates or mass. VASCULATURE: No increased pulmonary vasculature. PLEURA: No pneumothorax, effusion, or pleural thickening. CARDIAC: No cardiomegaly or cardiac silhouette abnormality. MEDIASTINUM: No visible mass or adenopathy. BONES: No fracture or visible bone lesion. OTHER: Negative. XR/XR chest 2V IMPRESSION: 1. No acute cardiopulmonary process. 2. Hyper expanded lungs suggestive COPD. Electronically authenticated by: THERESA LUCIA Date: 01/17/2024 15:30
== END 2024-01-17 13:51 | disposition home or self-care (01) ==
LOC: RAD 13:55
PROVIDERS: PCP Internal Medicine; Visit Provider Urology
DX: N32.89 Other specified disorders of bladder (principal); R31.0 Gross hematuria; Z87.891 Personal history of nicotine dependence
CPT/HCPCS: 71046; 74177; Q9967

== ENCOUNTER 2024-01-21 13:04 | Outpatient (OUT) | payer MEDICARE, SELFPAY ==
--- NOTE | 2024-01-21 13:24 | XR_ITS ---
The [address] [address] Patient Name: ANGELITA ADRIAN MRN: [id number] date: 1955 Sex: F Assigned Patient Location: [facility] Current Patient Location: [facility] Accession/Order Number: [id number] Exam Date: 01/21/2024 14:21 Report Date: 01/21/2024 15:58 At the request of: ALBERTO JIANG Procedure: XR chest 2V EXAM: XR chest 2V HISTORY: Preop exam COMPARISON: 01/17/2020 TECHNIQUE: Upright PA and lateral chest x-ray FINDINGS: The heart is not enlarged and the vasculature is not distended. The lungs are overexpanded with flattening of the hemidiaphragms. No acute infiltrate, effusion or pneumothorax is identified. The osseous structures are grossly intact XR/XR chest 2V IMPRESSION: No acute infiltrate or evidence of cardiac decompensation. Chronic changes are noted. The overall appearance of the chest is unchanged. Electronically authenticated by: CADEN HAAS Date: 01/21/2024 15:58
--- NOTE | 2024-01-21 13:24 | ECG_ITS ---
The [facility] Test Date: 2024-01-21 Pat Name: ANGELITA ADRIAN Department: Room: - Gender: Female Milliner Helper: : 1955 Requested By: [id number] Order Number: [id number] Reading MD: ENRIQUE SHAW Measurements Intervals [place] Rate: 69 P: 65 OK: 172 QRS: -42 QRSD: 81 T: 42 QT: 377 QTc: 404 Interpretive Statements SINUS RHYTHM WITH OCCASIONAL SUPRAVENTRICULAR PREMATURE COMPLEXES MARKED LEFT AXIS DEVIATION [QRS AXIS < -30] Compared to ECG 09/09/2023 09:48:13 Left-axis deviation now present Electronically Signed On 01-21-2024 22:51:55 EDT by ENRIQUE SHWA
[2024-01-21 15:32] LABS: Anion Gap 11.3; BUN Creatinine Ratio 17.6; Calcium 9.2 mg/dL (8.5-10.1); Carbon Dioxide 28.5 mmol/L (21.0-32.0); Chloride 106 mmol/L (98-107); Estimated GFR (African America >60 (>=60); Estimated GFR (Non-African Ame >60 (>=60); Glucose 113 mg/dL (74-106); Potassium 3.8 mmol/L (3.5-5.1); Sodium 142 mmol/L (136-145)
== END 2024-01-21 13:05 | disposition home or self-care (01) ==
LOC: PST 13:05
PROVIDERS: PCP Internal Medicine; Visit Provider Urology
DX: Z01.810 Encounter for preprocedural cardiovascular examination (principal); Z01.812 Encounter for preprocedural laboratory examination; N32.89 Other specified disorders of bladder
CPT/HCPCS: 71046; 80048; 93005

== ENCOUNTER 2024-01-23 11:55 | Day surgery (SDC) | payer MEDICARE, SELFPAY ==
[2024-01-21 13:34] VITALS: BP 121/78; PULSE 71; TEMP 36.2; O2SAT 97; BMI 25.2
[2024-01-23] VITALS (13 sets, daily range): BP systolic 122–183; BP diastolic 70–101; PULSE 54–67; TEMP 36.3–36.6; O2SAT 90–99; BMI 24.3
[2024-01-23] MEDS: LACTATED RINGER'S SOLUTION 1,000 ML 50 ML IV (12:37)
--- NOTE | 2024-01-23 13:02 | XR_ITS ---
The [address] [address] Patient Name: ANGELITA ADRIAN MRN: [id number] date: 1955 Sex: F Assigned Patient Location: [facility] Current Patient Location: [facility] Accession/Order Number: [id number] Exam Date: 01/23/2024 13:15 Report Date: 01/23/2024 14:56 At the request of: ALBERTO JIANG Procedure: XR urethrogram retrograde EXAM: XR urethrogram retrograde HISTORY: Left retrograde COMPARISON: 01/23/2024 TECHNIQUE: 1.39 mCi FINDINGS: Single image demonstrates cannulation and retrograde injection of iodinated contrast into the collecting system labeled the left. No hydronephrosis, hydroureter or intraluminal filling defect. XR/XR urethrogram retrograde IMPRESSION: Left retrograde pyelogram with no filling defect or mass observed Electronically authenticated by: FRANCIS JAEGER Date: 01/23/2024 14:56
[2024-01-23] MEDS: CEFAZOLIN SODIUM/DEXTROSE,ISO 2 GM/50 ML PIGGYBACK IV (13:13)
[2024-01-23] MEDS: IOHEXOL 240 MG/ML - 10 ML VIAL 120 MG INJ (14:30)
--- NOTE | 2024-01-23 15:00 | P.URON_ITS ---
Urology Surgery Operative Note Operative Note Procedure Date: 01/23/24 Time Out Performed: yes Pre-op Diagnosis: Bladder mass Post-op Diagnosis: same as pre-op Procedures performed: 1. Cystoscopy, transurethral resection of bladder tumor (> 5 cm) 2. Left retrograde pyelogram 3. Urethral dilation Anesthesia: General-LMA Primary Surgeon: Lin Dalton Complications: none Findings: Large broad based lobulated bladder mass on left lateral wall ~5x3 cm, appeared to invade muscle layer. Mass was not papillary, few calcifications noted on overlying mucosa. Small 5 mm papillary flat tumor on inferior medial aspect of tumor bed. Mass superior to left UO and not involving ureter. Specimens: bladder tumor Drains: 20Fr [address] way fernandez, 20 cc in balloon Indications for Procedures: 68 year old female with a gross hematuria was found to have a near 5x2 cm irregular left bladder wall mass on CT scan, confirmed on cystoscopy. CTU 01/17/24 did not show any upper tract involvement or hydronephrosis. Urine cytology negative for high grade urothelial cancer. After discussion of risks/benefits of management options, she elected to proceed with cystoscopy, TURBT, possible left ureteral stent under general anesthesia. Risks were discussed including but not limited to bleeding, pain, infection, damage to surrounding structures, bladder perforation, recurrence and need for additional procedures. The patient understands if a stent is placed, it is not permanent and needs to be removed or exchanged within 3 months to prevent encrustation, infection, invasive procedures and/or permanent renal damage. Detailed description of Procedure: Prior to the operating room, informed consent was obtained for the procedures described above. The patient was then taken to the operating suite, transferred to the operating table and received the appropriate dose of preoperative IV antibiotics. Gen. anesthesia was administered and the patient was positioned in the lithotomy position, sterilely prepped and draped in the usual sterile fashion for this procedure. A final timeout was performed confirming the patient's identity, procedure and all present were in agreement to proceed. I began by inserting a 22 Marshallese rigid cystoscope into the patient's bladder and performed a thorough cystoscopy with the 30 degree lens with the findings as abo ve. The urethra appeared to be normal without evidence of strictures or abnormalities. Bilateral ureters were seen in orthotopic position effluxing urine. The cystoscope was removed and a 26 Marshallese resectoscope was inserted, however met with resistance due to stenosis. Jewitt dilators were used to sequentially dilate the urethra to 30 Fr. The resectoscope was inserted. Bipolar loop electrocautery was used to resect the tumor, taking care to obtain muscle in the specimen. The tumor appeared to be invasive and clear uninvolved muscle was unable to be reached due to risk of perforation. Specimens were sent for pathology. Hemostasis was obtained with electrocautery of the resection bed and surrounding mucosa. The bladder was drained and inspected. There was no evidence of any bleeding from the resection beds. A 6fr open ended catheter was inserted into the left UO for retrograde pyelogram to ensure the distal ureter was not transected during deep TURBT. There was no hydronephrosis, filling defects or extravasation of contrast. The bladder was drained and cystoscope removed. A 20-Marshallese [address] Fernandez catheter was inserted without difficulty, irrigated until clear, 20 cc in balloon. A bimanual exam was performed which demonstrated normal external genitalia, stage 3 posterior prolapse, stage 1 anterior prolapse, no masses. The bladder was mobile without palpable mass. The abdomen was soft and nondistended. The patient tolerated the procedure well without complication. Patient was extubated and sent to PACU for recovery. Plan: She will maintain the catheter for 5 days and follow-up in the office for removal and voiding trial, and pathology review. Urinary Catheter Management Urinary Catheter Management Urethral: Cath placed during this visit: no
[2024-01-23] MEDS: ONDANSETRON PF 4 MG/2 ML VIAL IV (16:07)
== END 2024-01-23 16:55 | disposition home or self-care (01) ==
PROVIDERS: PCP Internal Medicine; Visit Provider Urology
PROC: (CPT 52240; principal; 2024-01-23 13:00)
DX: C67.9 Malignant neoplasm of bladder, unspecified (principal); R31.0 Gross hematuria; R30.0 Dysuria; R10.2 Pelvic and perineal pain; N39.46 Mixed incontinence; R35.1 Nocturia; J44.9 Chronic obstructive pulmonary disease, unspecified; Z87.891 Personal history of nicotine dependence; Z90.710 Acquired absence of both cervix and uterus; E78.5 Hyperlipidemia, unspecified; I10 Essential (primary) hypertension; G25.81 Restless legs syndrome; M81.0 Age-related osteoporosis without current pathological fracture
CPT/HCPCS: 52240; 36415; 74420; 88307; J0690; J2405; J2704; J3010; Q9966

== ENCOUNTER 2024-01-25 21:53 | Emergency (ER) | payer MEDICARE, SELFPAY ==
--- OUTSIDE RECORDS SUMMARY | 2024-01-25 22:00 | XMS_ITS | CCD ---
Author Organization [facility] Care Team Providers Care Holistic Pulser Name Role Phone FAWWAD, KHAN H Admitting [...] Consulting Unavailable Fawwad, Khan Unavailable Unavailable Unavailable [facility], Dr. Álvaro Fritz Referring Unavailab le Traboulssi, Dr. Velasquez Attending Unavaila ble Traboulssi, Dr. Velasquez Referring Unavaila ble Traboulssi, Dr. Velasquez Attending Unavaila ble Traboulssi, Dr. Velasquez Referring Unavaila ble Traboulssi, Dr. Velasquez Attending Unavaila ble Jorge Luis, Dr. Velasquez Attending Unavaila raul Allan MD, [facility] Primary Care Provider Jerrell SINGLETARY, Khan Primary Care Provider Jerrell SINGLETARY, Khan Primary Care Provider BENYN KANG Attending Unavailable PUJAWRADHA SALAZARIKH Primary Care Unavailable FAWWAD, KHAN Attending Unavailable SHAIKH ALLAN Attending Unavailable SHAIKH ALLAN Attending Unavailable SHAIKH ALLAN Attending Unavailable SHAIKH ALLAN Attending Unavailable NONE, XXXX Primary Care Physician MD Lin Reynolds Attending Provider [phone] Lin Dalton Referring Unavailable Lin Dalton Admitting Unavailable Lin Dalton Attending Unavailable Lin Dalton Admitting Unavailable Lin Dalton Attending Unavailable Lin Dalton Attending Unavailable Allergies Allergy Classification Reported Allergen(s) Allergy Type Date of Onset Reaction(s) Facility Opioid Agonists (2 sources) Codeine; 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: [codeine] Drug Allergy Nausea (finding) [facility] (3 sources) Codeine; 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: [CODEINE] Drug Allergy [address] [facility] (8 sources) Codeine; 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: [Codeine Derivatives] Drug Allergy 9 Nausea Only, GI intolerance, Other, Nausea/vomiting , Nausea (finding) [facility] Medications Current Medications Medication Drug Class(es) Dates Sig (Normalized) Sig (Original) acetaminophen 500 mg oral tablet (1 source) Start: 09-25-2017 take 500 mg by mouth every twelve hours Acetaminophen Active 500 MG PO Q12H September 25, 2017 1:00am [id number] 200 actuat albuterol 0.09 mg/actuat metered dose inhaler (9 sources) beta2-Adrenergic Agonist Start: 10-19-2022 take 2 puff(s) by inhalation every four hours for wheezing albuterol 90 mcg/actuation inhaler Inhale 2 puffs every 4 hours if needed for wheezing or shortness of breath. 10/19/2022 Active Start: 09-25-2017 take 1 puff(s) by in halation twice daily Albuterol Sulfate (Ventolin Hfa) 90 mcg/actuation HFA aerosol inhaler Active 2 PUFF INHALATION Twice daily September 25, 2017 1:00am Ventolin HFA 108 (90 Base) MCG/ACT inhaler [...] Active alendronic acid 70 mg oral tablet (9 sources) Bisphosphonate Start: 05-28-2023 take 1 tablet by mouth every week alendronate (Fosamax) 70 mg tablet Take 1 tablet (70 mg) by mouth 1 (one) time per week. 05/28/2023 Active Start: 09-25-2017 take 35 mg by mouth every week Alendronate Active 35 MG PO every week September 25, 2017 1:00am takes qfriday amLODIPine 5 mg oral tablet (12 sources) Dihydropyridine Calcium Channel Frederick Start: 01-17-2024 amLODIPine 5 mg Tab 5 mg = 1 tab(s), Daily Start Date: 01/17/24 Status: Ordered Start: 09-25-2017 take 1 tablet by marguerite th once daily amLODIPine (Norvasc) 5 mg tablet Take 1 tablet (5 mg) by mouth once daily. 05/28/2023 Active arformoterol (10 sources) beta2-Adrenergic Agonist Start: 01-17-2024 arfor moterol mcg, NEB Start Date: 01/17/24 Status: Ordered arformoterol (Br ovana) 15 MCG/2ML nebulizer solution Take 15 mcg [...] DO Active atorvastatin 40 mg oral tablet (12 sources) HMG-CoA Reductase Inhibitor Start: 01-17-2024 atorvastatin 40 mg T ab 40 mg = 1 tab(s), Once a day (at bedtime) Start Date: 01/17/24 Status: Ordered Start: 09-25-2017 take 1 tablet by marguerite th once daily at bedtime atorvastatin (Lipitor) 40 mg tablet Take 1 tablet (40 mg) by mouth once daily at bedtime. 05/28/2023 Active biotin 5 mg oral capsule (3 sources) take 1 capsule by mouth once daily biotin (Biotin 5000) 5 MG capsule Take 5 mg by mouth 1 (one) time each day at the same time 0 Active Budesonide (11 sources) Corticosteroid Start: 01-17-2024 budesonide Start Date: 01/17/24 Status: Ordered take 2 mL by mouth twice daily b udesonide (Pulmicort) 0.5 mg/2 mL nebulizer solution Take [...] 0 Refills: 0 Ordered: 26-Jan-2023 DO Active 120 actuat budesonide 0.16 mg/actuat / formoterol fumarate 0.0045 mg/actuat metered dose inhaler (1 source) Corticosteroid, beta2-Adrenergic Agonist Start: 09-25-2017 take 1 puff(s) by inhalation twice daily Budesonide-Formoterol (Symbicort) 160-4.5 mcg/actuation HFA aerosol inhaler Active 2 PUFF INHALATION Twice daily September 25, 2017 1:00am Centrum Women 50 Plus Multigummies (3 sources) Start: 01-17-2024 Centrum Women 50 Plus Multigummies Start Date: 01/17/24 Status: Ordered cholecalciferol 0.05 mg oral tablet (4 sources) Vitamin D Start: 09-25-2017 take 1 tablet by mouth once daily Cholecalciferol (Vitamin D3) (Vitamin D3) 2,000 unit Tablet Active 1 TAB PO Daily September 25, 2017 1:00am Equate Clear-Lax (1 source) Start: 09-25-2017 take 8 [oz_av] by mouth once daily at bedtime Equate Clear-Lax Active 1 CAP PO Daily at bedtime September 25, 2017 1:00am in 8 oz water escitalopram 20 mg oral tablet (8 sources) Serotonin Reuptake Inhibitor Start: 01-17-2024 escitalopram 20 mg Tab 20 mg = 1 tab(s), Daily Start Date: 01/17/24 Status: Ordered Start: 09-24-2023 End: 12-23-2023 take 1 tablet by mouth in the [...] 0 Active gabapentin 300 mg oral capsule (6 sources) Anti-epileptic Agent Start: gabapentin 300 mg Cap 300 mg = 1 cap(s), Daily Start Date: 01/17/24 Status: Ordered Start: 08-07-2023 End: 11-05-2023 take 1 capsule by mouth at bedtime gabapentin (Neurontin) 300 MG capsule Indications: Restless legs syndrome Take 1 capsule (300 mg) by mouth at bedtime 90 capsule 0 08/07/2023 11/05/2023 Active 200 actuat ipratropium bromide 0.017 mg/actuat metered dose inhaler (4 sources) Anticholinergic Start: 09-25-2017 take 1 puff(s) by inhalation twice daily Ipratropium Roebling (Atrovent Hfa) 17 mcg/actuation HFA aerosol inhaler Active 2 PUFF INHALATION Twice daily September 25, 2017 1:00am ipratropium (Atr ovent HFA) 17 MCG/ACT inhaler Inhale 2 puffs in the morning and 2 puffs at noon and 2 puffs in the evening and 2 puffs before bedtime. 0 Active losartan potassium 100 mg oral tablet (12 sources) Angiotensin 2 Receptor Frederick Start: 01-17-2024 take 1 tablet by mouth once daily losartan 100 mg Tab 100 mg = 1 tab(s), Oral, Daily Start Date: 01/17/24 Status: Ordered Start: 05-28-2023 End: 11-21-2023 take 1 tablet by mouth in the morning losartan (Cozaar) 100 MG tablet Indications: Primary hypertension (CMS/HCC) Take 1 tablet (100 mg) by mouth in the morning. 90 tablet 0 08/23/2023 11/21/2023 Active Start: 09-25-2017 take 50 mg by mouth twice pardeep y Losartan Active 50 MG PO Twice daily September 25, 2017 1:00am take 1 tablet by marguerite th once daily Losartan Potassium 100 MG Oral Tablet TAKE 1 TABLET DAILY. Quantity: 0 Refills: 0 Ordered: 26-Jan-2023 DO Active meloxicam 7.5 mg oral tablet (12 sources) Nonsteroidal Anti-inflammatory Drug Start: 01-17-2024 meloxicam 7.5 mg Tab 7.5 mg = 1 tab(s), Daily Start Date: 01/17/24 Status: Ordered Start: 05-28-2023 take 1 tablet by marguerite th once daily meloxicam (Mobic) 7.5 mg tablet Take 1 tablet (7.5 mg) by mouth once daily. 05/28/2023 Active Start: 09-25-2017 take 7.5 mg by mouth twice walt ly Meloxicam Active 7.5 MG PO Twice daily September 25, 2017 1:00am menthol 100 mg/ml topical cream (3 sources) Menthol, Topical Analgesic, (Biofreeze) 10 % cream Apply 10 % topically 1 (one) time each day at the same time 0 Active 24 hr metoprolol succinate 100 mg extended release oral tablet (13 sources) beta-Adrenergic Frederick Start: 01-17-2024 take 1 tablet by mouth once daily metoprolol 100 mg ER Tab 100 mg = 1 tab(s), Oral, Daily Start Date: 01/17/24 Status: Ordered Start: 09-24-2023 End: 12-23-2023 take 1 tablet by mouth every twenty-four hours in the morning metoprolol succinate XL (Toprol-XL) 100 MG 24 hr tablet Indications: Primary hypertension (CMS/HCC) Take 1 tablet (100 mg) by mouth in the morning. Do not crush or chew.. 90 tablet 0 09/24/2023 12/23/2023 Active Start: 09-25-2017 take 1 tablet by marguerite th twice daily metoprolol tartrate (Lopressor) 25 mg tablet Take 1 tablet (25 mg) by mouth 2 times a day. 05/28/2023 Active End: 09-24-2023 take 1 tablet by mouth every eight hours metoprolol tartrate (Lopressor) 25 MG tablet Take 25 mg by mouth every 8 (eight) hours 0 09/24/2023 Discontinued (Dose adjustment) take 1 tablet by mouth once pardeep y Metoprolol Tartrate 25 MG Oral Tablet TAKE 1 TABLET DAILY. Quantity: 0 Refills: 0 Ordered: 26-Jan-2023 DO Active Multivitamin preparation (1 source) Start: 09-25-2017 take 1 tablet by mouth once daily Multivitamin Active 1 TAB PO Daily September 25, 2017 1:00am pantoprazole 40 mg delayed release oral tablet (11 sources) Proton Pump Inhibitor Start: 01-17-[address] Tab 40 mg = 1 tab(s), Daily Start Date: 01/17/24 Status: Ordered Start: 05-28-2023 take 1 tablet by marguerite th once daily pantoprazole (ProtoNix) 40 mg EC tablet Take 1 tablet (40 mg) by mouth once daily. 05/28/2023 Active microencapsulated potassium chloride 20 meq extended release oral tablet (8 sources) take 1 tablet by marguerite th once daily potassium chloride CR 20 mEq ER tablet Take 1 tablet (20 mEq) by mouth once daily. Do not crush or chew. Active take 20 mEq by mouth in the morn ing potassium chloride (Klor-Con) 20 MEQ packet Take 20 mEq by mouth in the morning. 0 Active pramipexole dihydrochloride 0.75 mg oral tablet (11 sources) Nonergot Dopamine Agonist Start: 01-17-2024 take 1 tablet by mouth once daily pramipexole 0.75 mg oral tablet 0.75 mg = 1 tab(s), Daily Start Date: 01/17/24 Status: Ordered Start: 08-02-2023 End: 10-01-2023 take 1 tablet [...] 0 Refills: 0 Ordered: 26-Jan-2023 DO Active predniSONE (3 sources) Start: 01-17-2024 predniSONE 5 m g Tab 5 mg = 1 tab(s), Daily Start Date: 01/17/24 Status: Ordered Yupelri (11 sources) Start: 01-17-2024 take 1 ug by inhalat ion once daily Yupelri mcg, Inhalation, Daily Start Date: 01/17/24 Status: Ordered revefenacin (Yup elri) 175 mcg/3 mL nebulizer solution Take 3 mL (175 mcg) by nebulization once daily. Active revefenacin (Yup elri) 175 MCG/3ML nebulizer solution Take 175 mcg by nebulization in the morning. 0 Active take 1 puff(s) by inhalation onc e daily Yupelri 175 MCG/3ML Inhalation Solution INHALE 1 PUFFS Daily Quantity: 0 Refills: 0 Ordered: 26-Jan-2023 DO Active traZODone hydrochloride 50 mg oral tablet (3 sources) Serotonin Reuptake Inhibitor Start: 01-17-2024 traZODONE 50 mg Tab 50 mg = 1 tab(s), Once a day (at bedtime) Start Date: 01/17/24 Status: Ordered vitamin b12 1 mg extended release oral tablet (3 sources) Vitamin B12 Cyanocobalamin ( Vitamin B12) 1000 MCG tablet controlled-release Take 1,000 mg by mouth 1 (one) time each day at the same time 0 Active Vitamin E (3 sources) Start: 01-17-2024 vitamin E Oral Start Date: 01/17/24 Status: Ordered Zinc (3 sources) Start: 01-17-2024 Zinc 50 mg Sta rt Date: 01/17/24 Status: Ordered Problems Active Problems Problem Classification Problem Date Documented Date Episodic/Chronic Anxiety disorders (3 sources) Anxiety 01-17-2024 Chronic Appendicitis and other appendiceal conditions (3 sources) Disorder of appendix 01-17-2024 Episodic Cataract (3 sources) Cataract 01-17-2024 Chronic Chronic obstructive pulmonary disease and bronchiectasis (14 sources) Centriacinar emphysema; 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: [Other emphysema] Onset: 08-02-2023 08-02-2023 Chronic Disorders of lipid metabolism (14 sources) Mixed hyperlipidemia; 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: [Mixed hyperlipidemia] Onset: 08-02-2023 08-02-2023 Chronic Esophageal disorders (3 sources) Gastroesophageal reflux disease without esophagitis; 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: [Gastro-esophageal reflux disease without esophagitis] Onset: 08-02-2023 08-02-2023 Chronic Essential hypertension (19 sources) Essential (primary) hypertension; 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: [Hypertensive disorder] Onset: 04-20-2022 Chronic Fluid and electrolyte disorders (3 sources) Hypokalemia; 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: [Hypokalemia] Onset: 08-02-2023 08-02-2023 Episodic Genitourinary symptoms and ill-defined conditions (8 sources) Blood in urine; 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: [Gross hematuria] Onset: 01-17-2024 Episodic Mood disorders (8 sources) Moderate major depression, single episode; 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: [Major depressive disorder, single episode, moderate] Onset: 08-02-2023 08-02-2023 Chronic Osteoporosis (3 sources) Osteoporosis 01-17-2024 Chronic Other connective tissue disease (3 sources) Disorder of abdominal wall 01-17-2024 Episodic Other diseases of bladder and urethra (2 sources) Disorder of bladder; 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: [Other specified disorders of bladder] Onset: 01-17-2024 Chronic Other diseases of bladder and urethra (3 sources) Mass of urinary bladder 01-17-2024 Chronic Other hereditary and degenerative nervous system conditions (6 sources) Restless legs; 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: [Restless legs syndrome] [...] nutritional; endocrine; and metabolic disorders (6 sources) Drpvz-7-yklqrtjwumm deficiency; 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: [Ngpjc-1-cfjqmphtqoh deficiency] Onset: 08-30-2023 11-28-2023 Chronic Other nutritional; endocrine; and metabolic disorders (2 sources) Dhcur-0-oasywrjmwfp deficiency; 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: [Oufad-0-voysghmggnp deficiency (Multi)] Onset: 08-30-2023 Chronic Other nutritional; [...] of mental health and substance abuse codes (19 sources) Personal history of nicotine dependence; 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: [...] Test Name Value Interpretation Reference Range Facility Lab Reportson 01-24-2024 Lab Reports [id number] #1.00TIFF Normal [facility] Operative Reporton Operative Report [id number]#1. 00TIFF Normal [facility] RAD - MISCon 01-24-2024 [facility] [id number]#1 .00TIFF Normal [facility] [id number]#1 .00TIFF Normal [facility] [id number]#1. 00TIFF Normal [facility] Consent for Procedure/Surger yon 01-22-2024 Consent for Procedure/Surgery [id number]#1. 00TIFF [facility] Urine Cytology ( Labs)on 0 01-22-2024 Microscopic exam Cytology (U) [Interp] Diagnosis Info Invalid Interpretation Code [facility] Comment on above: Result Comment: A:Ur ine,Urine:Voided Interpretation - MicroScopic Description - Adequacy - Gross Description Site ID:A color Yellow fixative Alcohol Specimen designated Urine received in alcohol preservative and labeled with the patient?s name, consists of 90ml slightly cloudy yellow fluid. Electronically signed by : on: 01/22/2024 15:40:59 Performed By: #### 1 [id number] #### [facility] [address] [place] [id number] Consent for Procedure/Surger yon 01-21-2024 Consent for Procedure/Surgery [id number]#1 .00TIFF Normal [facility] Consent for Procedure/Surgery [id number]#1. 00TIFF [facility] Consent for Treatmenton 01-11 Consent for Treatment [id number]#1 .00TIFF [facility] Inpatient Patient Summaryon 01-21-2024 Inpatient Patient Summary [place] [address] Clinical Summary Person Information Name: SVETLANA SILVA Age: 68 Years : 1955 Sex: Female PCP: NONE, XXXX Marital Status: Race: White Ethnicity: Non- or Language: Sami Visit Id: Visit Reason: BLADDER MASS Speciality: Acuity: Enc Type: Outpatient Med Service: Surgery Arrival: 01/21/2024 08:15:39 Discharge: Dispo Type: Address: [address] [place] [address] [address] [facility] [id number] Provider Notes: Diagnosis: Bladder mass; Gross hematuria Problems Active Former smoker Gross hematuria Bladder mass Cataract Hernia of abdominal wall Hematuria Appendix disease Chronic obstructive pulmonary disease (COPD) Hypertension Hyperlipidemia Osteoporosis Restless leg Depressed Anxiety Smoking Status: Functional Status: Sensory Deficits: History of Falls: Mobility Assistance Prior to Admission: ADLs: Current Level of Assistance for Self-Care/Mobility: Cognitive Status: Allergies codeine (Nausea) Laboratory or Other Results This Visit (last charted value for your 01/21/2024 visit) No Laboratory or Other Results This Visit Measurements: Height: Weight: Blood Pressure: Not Valued / Not Valued BMI: Procedures No Procedures Documented Immunizations No Immunizations Documented This Visit Final Med List: amlodipine (amLODIPine 5 mg Tab) 1 Tablets every day. arformoterol Nebulized inhalation (aerosol). atorvastatin (atorvastatin 40 mg Tab) 1 Tablets once a day (at bedtime). budesonide escitalopram (escitalopram 20 mg Tab) 1 Tablets every day. gabapentin (gabapentin 300 mg Cap) 1 Capsules every day. losartan (losartan 100 mg Tab) 1 Tablets By Mouth every day. meloxicam (meloxicam 7.5 mg Tab) 1 Tablets every day. metoprolol (metoprolol 100 mg ER Tab) 1 Tablets By Mouth every day. multivitamin with minerals (Centrum Women 50 Plus Multigummies) pantoprazole (Pantoprazole [address] Tab) 1 Tablets every day. pramipexole (pramipexole 0.75 mg oral tablet) 1 Tablets every day. predniSONE (predniSONE 5 mg Tab) 1 Tablets every day. revefenacin (Yupelri) Inhalation every day. trazodone (traZODONE 50 mg Tab) 1 Tablets once a day (at bedtime). vitamin E By Mouth. zinc sulfate (Zinc) 50 Milligram. Care Team Members: Attending Physician: Lin Dalton MD Consulting Physician: Referring Physician: Lin Dalton MD Follow up: With: Address: When: Lin Dalton Comments: Keep scheduled appointment for TURBT, possible left ureteral stent Patient Education Information: EU - Cystoscopy Discharge Instructions (CUSTOM) [facility] IntraOperative Documentson 0 01-21-2024 IntraOperative Documents [id number] .00TIFF [facility] Main OR Intraoperative Recor don 01-21-2024 Main OR Intraoperative Record IntraOp Document Type FTURO Summary Primary Physician: Lin Dalton MD Finalized Date/Time: 01/21/24 08:55:32 Pt. Name: SVETLANA SILVA/Sex: 1955 Female Med Rec #: [id number] Physician: Lin Dalton MD Financial #: [id number] Pt. Type: O Room/Bed: / Admit/Disch: 01/21/24 08:15:39 - Institution: Case Times FTURO Entry 1 Patient Times In Room 01/21/24 08:37:00 Out Room 01/21/24 08:53:00 Procedure Times Start 01/21/24 08:46:00 Stop 01/21/24 08:49:00 Anesthesia Times Last Modified By: Jessica Goodrich 01/21/24 08:53:02 Case Attendance FTURO Entry 1 Entry 2 Entry 3 Case Attendee Lin Dalton MD, Kelsie E Miller, Laura C Role Performed Surgeon - Primary Harness Inspector - Primary Scrub - Primary Time In 01/21/24 08:37:00 01/21/24 08:37:00 01/21/24 08:37:00 Time Out 01/21/24 08:53:00 01/21/24 08:53:00 01/21/24 08:53:00 Procedure CYSTOSCOPY LOCAL(.) CYSTOSCOPY LOCAL(.) CYSTOSCOPY LOCAL(.) Comments Last Modified By: Jessica Goodrich Kelsie E Burgderfer, Kelsie E 01/21/24 08:53:03 01/21/24 08:53:03 01/21/24 08:53:03 Surgical Procedures FTURO Entry 1 Procedure Description Procedure CYSTOSCOPY LOCAL Modifiers . Surgeon Description CYSTO Primary Procedure Yes Primary Surgeon Lin Dalton MD Start 01/21/24 08:46:00 Stop 01/21/24 08:49:00 Anesthesia Type Local Surgical Service Urology Wound Class 2 - Clean-Contaminated Last Modified By: Jessica Goodrich 01/21/24 08:53:02 General Case Data FTURO Pre-Care Text: Classifies surgical wound, implements aseptic technique, initiates traffic control Entry 1 Case Information OR URO 1 FT Case Level None Wound Class 2 - Clean-Contaminated Specialty Urology Preop Diagnosis BLADDER MASS Postop Same As Preop Yes Postop Diagnosis BLADDER MASS Outcomes Met? Yes Last Modified By: Jessica Goodrich 01/21/24 08:38:37 Post-Care Text: The patient is free from signs and symptoms of infection EU IntraOp - FTURO Pre-Care Text: Implements protective measures prior to operative or invasive procedure, confirms identity before the operative or invasive procedure, verifies operative procedure, surgical site, and laterality Entry 1 EU Perioperative Protocols Procedure(s) CYSTOSCOPY LOCAL(.) Patient Identity Birthday, ID Band Verified (select at Check, Patient least 2): Participation Consents / H and P HandP, Surgery/Procedure Operative Site N/A Verified Consent Marking Verified Surgical Site Yes Laterality Verified n/a Verified Procedure Verified Yes Correct Patient Yes Position Verified Availability Equipment, Medication Time Out Lin Dalton MD, Verified (If Participants Jessica Goodrich, Applicable) Latha Wright Time Out Complete 01/21/24 08:45:00 Allergies Reviewed? Yes Allergies Reviewed Self/Patient With Body Position Frog Legged Prep Area vagina Prep Agents Betadine Solution Skin. Condition Intact, [place]ter[place], Warm, and Description n/a Dry Additional None Specimens Comment n/a Specimens Collected Vitals - EU Blood Pressure 146/73 Pulse 68 bpm Respirations 16 br/min SPO2 97 % EBL 0 IandO - EU Total Intake 0 mL Total Output 0 mL Outcomes Met? Yes Last Modified By: Jessica Goodrich 01/21/24 08:46:04 Post-Care Text: The patient is free from signs and symptoms of injury caused by extraneous objects Sign Out FTURO Entry 1 Before Patient Leaves OR Nurse verbally Yes Nurse verbally n/a confirms with the confirms with the team the name of team that the procedure(s) instrument, sponge, recorded and needle counts are correct (or N/A) Nurse verbally n/a Nurse verbally Yes confirms with the confirms with the team how the team whether there specimen is labeled are any equipment (including patient problems to be name), if applicable addressed Sign Out Complete 01/21/24 08:49:00 Last Modified By: Jessica Goodrich 01/21/24 08:49:18 Case Comments Finalized By: Jessica Goodrich Document Signatures Signed By: Jessica Goodrich 01/21/24 08:55 Jessica Goodrich 01/21/24 08:55 [facility] Main OR Preoperative Recordo n 01-21-2024 Main OR Preoperative Record Holding Area Document Type FTURO Summary Primary Physician: Lin Dalton MD Finalized Date/Time: 01/21/24 08:30:18 Pt. Name: SVETLANA SILVA [place] C[place]/Sex: 1955 Female Med Rec #: [id number] Physician: Lin Dalton MD Financial #: [id number] Pt. Type: O Room/Bed: / Admit/Disch: 01/21/24 08:15:39 - Institution: Case Times Holding FTURO Pre-Care Text: Verifies consent for planned procedure, identifies individual values and wishes concerning care, includes family members in perioperative teaching Secures patient's records' belongings, and valuables, maintains patient's dignity and privacy, and maintains patient confidentiality Entry 1 In Holding 01/21/24 08:26:00 Outcomes Met? Yes Last Modified By: Amado JOHN, Zehra CHAVEZ 01/21/24 08:26:18 Post-Care Text: The patient participates in decisions affecting his or her perioperative plan of care The patient's right to privacy is maintained Surgery Checklist FTURO Entry 1 Patient Birthday, ID Band Procedure History and Physical, Identification: Check, Patient Verification: Surgical Consent, With Participation Patient NPO after Midnight: n/a Date/Time: 01/21/24 08:26:00 Personal Items: Glasses Personal Items clothes Comment: Limitations: none Complaints of Pain: No Skin Integrity Unable to Visualize Vitals - EU Blood Pressure 146/73 Pulse 68 bpm Respirations 16 br/min SPO2 97 % Additional None RN Reviewed Yes Specimens Collected Last Modified By: SCOTT Fischer RN, Ruthann 01/21/24 08:28:25 Finalized By: SCOTT Fischer RN, Ruthann Document Signatures Signed By: SCOTT Fischer RN, Ruthann 01/21/24 08:28 SCOTT Fischer RN, Ruthann 01/21/24 08:30 Normal [facility] Operative Reporton Operative Report Patient: SVETLANA SILVA Age: 68 years Sex: Female : 1955 Associated Diagnoses: None Author: Lin Dalton MD Procedure Operative Information Details: Date/ Time: 01/21/2024 08:52:00. Pre-Op Dx: Gross hematuria ([id number] R31.0, Discharge, Medical), Bladder mass ([id number] N32.89, Discharge, Medical). Post-Op Dx: Same. Anesthesia Type: Local. Procedure: Local Cystoscopy. Complications: None. Risks/Benefits/Inform ed Consent: Surgical risks, benefits, details of the procedure have been explained to the patient, Full informed consent has been obtained. Intraoperative Information Prepped: Patient is brought back to the endoscopy suite, Patient is placed in supine position, Patient prepped in the usual fashion with Betadine solution, 2% Xylocaine Jelly is placed per Urethra, After waiting several minutes the Cystoscope is introduced. The Urethra is: Normal. The Bladder is: Trabeculated None (0), Large 5x3 cm sessile left lateral bladder mass with partial calcifications, continuous with bladder mucosa, not papillary. Just superior to L UO. . The ureteral orifices: Show efflux of clear urine. Devices Implanted: None. Removal: Cystoscope is removed, The patient tolerated it well. Postoperative Information Discharge: Follow up arranged, Dc home. Follow up as scheduled for TURBT, possible left ureteral stent given location of mass. Risks/benefits again discussed. CTU 01/17/24 at [facility] - 4.8 x 2.1 cm irregular left bladder wall mass, appears to be continuous with muscle on personal review. No upper tract filling defects, no lymphadenopathy. CXR - no mets. COPD changes (hyperexpansive). Normal [facility] Comment on above: Result Comment: Elec tronically Signed By: Lin Dalton MD\.br\Date and Time Signed: 01/21/24 08:58 EDT Outpatient Surgery Discharge Instructionon 01-21-2024 Outpatient Surgery Discharge Instruction [place] [id number] Patient Discharge Instructions PERSON INFORMATION Name: SVETLANA SILVA Date of : 1955 Current Date: 01/21/2024 08:52:07 PHYSICIANS Admitting Physician: Lin Dalton MD Comment: Discharge Diagnosis: Bladder mass; Gross hematuria KYMBERLYJORGESVETLANA has been given the following list of follow-up instructions, prescriptions, and patient education materials: IF UNABLE TO CONTACT YOUR PHYSICIAN AND YOU FEEL IT IS AN EMERGENCY, GO TO THE NEAREST EMERGENCY ROOM OR CALL 911 Follow up: With: Address: When: Lin Dalton Comments: Keep scheduled appointment for TURBT, possible left ureteral stent Comment: PATIENT EDUCATION INFORMATION Instructions: Cystoscopy ? Voiding after the procedure: there may be some pain, burning, urgency, frequency and blood tinged urine following the procedure. These symptoms usually resolve within 2-5 days. Drink the amount of fluid it takes to keep the urine pink to yellow or clear in color. Drinking enough water and fluids will help to ease any discomfort after your procedure. ? If you are having problems that seem out of the ordinary, please call. ? If unable to contact your physician and you feel it is an emergency, go to the nearest emergency room or call 911 ? Diet ? you may resume your normal diet. ? Activity ? you may resume your normal activities ? Call if you have a fever over 100 degrees. IKAYLAH PAMELA S, have received the attached patient education materials/instruction s and have verbalized understanding: May we do a follow up call? Yes No I was present when discharge instructions were given Patient Signature Date Clinican/Nurse Signature Date You may receive a survey from [employer]ck[employer]i asking you to rate your care experience. Your feedback is important and will help us understand what we do well and how we can improve the quality of care we provide to you, your loved ones and our community. It?s an honor to serve you. Thank you for choosing [facility] Normal [facility] ED Note-Physicianon 01-18-20 ED Note-Physician .[id number] .00TIFF Normal [facility] RAD - CT Reporton 01-18-2024 RAD - CT Report .[id number]. 00TIFF Normal [facility] RAD - CT Report ..[id number] .00TIFF Normal [facility] RAD - MISCon 01-18-2024 [facility] [id number] .00TIFF Normal [facility] [id number]. 00TIFF Normal [facility] Urology Office/Clinic Noteon 01-18-2024 Urology Office/Clinic Note HPI Staff 68 year old female New Pt. seen in [facility] 01/13/24 due to hematuria associated with dysuria and pelvic pain. CT done while in the ER showing a masslike area in the bladder consistent with possible malignancy. Pt. PCP gave here Keflex on 12/31/23 and Macrobid on 01/03/24 and was told to finish both, Pt. states she continue to have symptoms and is now passing clots. Dysuria: yes Incomplete bladder emptying: no, PVR 20mL Hematuria: Pt. states this morning she seen gross hematuria and clots. Pt. states she will see gross hematuria about 4-5x's a day Frequency: every 2 hours occasionally less Urgency: yes Nocturia: 4-5x's Stream: good stream Post void dripping: no Wearing pads/ Depends: yes, Pt. will wear pads Urge incontinence: yes Stress incontinence: yes Incontinence without Sensory Awareness: yes Abdominal pain: yes Flank pain: bilateral flank pain History of Present Illness Tests reviewed: reviewed UA and external records including labs, notes, UA, CT AP wo I have reviewed the previous health record information and history for this patient from external provider. I have reviewed and verified the staff HPI to be accurate for this encounter. There have been no associated fever, chills, flank pain. Review of Systems ROS - Provider Constitutional: denies weight loss, denies hot flashes. Eyes: denies eye problems. Gastrointestinal: denies nausea, denies vomiting. Cardiovascular: denies chest pain or angina. Integumentary: no dryness Musculoskeletal: denies musculoskeletal symptoms. ENMT: denies otolaryngeal symptoms. Respiratory: no shortness of breath. Heme/Lymph: denies easy bleeding tendency, denies easy bruising tendency. Psychiatric: no confusion, no anxiety. Genitourinary: See HPI. Physical Exam General Appearance: alert , no acute distress, well nourished, well developed female. Assessment/Plan Svetlana is a 68 yo female new to our office due to recent [facility] ER visit for gross hematuria and suspected bladder mass. Hx of COPD. Not currently on oxygen. States her stats are in the 90s. Pt here with granddaughter today. BBS 26 Hx of partial hysterectomy. 1. Bladder mass (N32.89: Other specified disorders of bladder) Pt presented to [facility] ER 01/13/24 for eval of hematuria that has been present over the last week. Reported she was not absolutely sure that it was hematuria vs vaginal bleeding. Reports associated dysuria and pelvic pain. She was seen by her PCP and completed Keflex 12/31/23 as well as Macrobid 01/03/24. Pt continues to have sx and is now passing clots. No evidence of UTI. CT AP wo IV con 01/13/24 [facility] - shows asymmetric focal thickening of the left urinary bladder wall measuring up to 2.1 cm concerning for malignancy. Upon personal review possible enlargement of a L external illiac lymph node. Case discussed with Dr. Polanco and he recommended outpatient follow up within 5-7 days. Cathed in the ER prior to discharge. Labs 01/13/24: Cr 0.82, eGFR >60 PVR 20 cc. Hx of gross hematuria associated with UTIs, per pt infections were culture proven. Unsure of time frame. First noticed gross hematuria without clots over a month ago. Still seeing gross hematuria and passing clots. Last seen this morning. States she will have blood in her urine 4-5x per day. UA today shows large blood and trace leuks. Reports she is still able to void, sometimes uncomfortable due to clots. Experiencing burning with urination. -Recommended AZO for OTC relief. Reports mother had bladder cancer. States she did not want it treated. Dx'd at 77 yo. at 78 yo. Given findings on CT, gross hematuria and clots, and former smoking hx, a cystoscopy is recommended to confirm diagnosis. Pt understands this will likely lead to TURBT, will schedule today and can be canceled if needed. Briefly discussed treatment options depending on muscle invasion. Not on any blood thinners. No hx of PR or stroke. Pt states her doctor thinks she may of had a stroke when she had COVID, but never confirmed. -Present to the ER if pt is unable to void due to clots -Increase fluids to prevent clots -Urine sent for cytology today -Will schedule CT AP w/ IV and delayed phase to complete urogram @ [facility] STAT prior to TURBT for staging -CXR for staging Will schedule cystoscopy. The risks and benefits for cystoscopy have been discussed. The risks include bleeding, infection, and irritation of the bladder and urinary channel, among others. The patient, after being informed of procedural details and after questions have been answered, wishes to proceed. Full informed consent has been obtained. Will order Local anesthesia. Will schedule Cysto with TURBT (tentative). The procedure risks, benefits, details, and treatment alternatives have been discussed with the patient. These include bleeding -- sometimes to the point of hemorrhaging, infection, risk of bladder perforation, recurrence of bladder tumor in 60-70% of patients, need for indwell (more content not included)... Normal [facility] Comment on above: Result Comment: Elec tronically Signed By: Lin Dalton MD\.br\Date and Time Signed: 01/18/24 09:40 EDT Ambulatory Visit Summaryon 0 01-17-2024 Ambulatory Visit Summary SVETLANA SILVA :1955 Visit Date:01/17/2024 Ambulatory Visit Instructions Your Diagnosis Bladder mass Gross hematuria Former smoker Tests Performed CT Urogram -- Results Pending -- Please visit your patient portal for your results or contact your primary care physician. Your Care Team Attending Physician - Lin Dalton MD This Is Your Medications List Contact prescribing physician if questions or concerns amlodipine (amLODIPine 5 mg Tab) arformoterol atorvastatin (atorvastatin 40 mg Tab) budesonide escitalopram (escitalopram 20 mg Tab) gabapentin (gabapentin 300 mg Cap) losartan (losartan 100 mg Tab) meloxicam (meloxicam 7.5 mg Tab) metoprolol (metoprolol 100 mg ER Tab) multivitamin with minerals (Centrum Women 50 Plus Multigummies) pantoprazole (Pantoprazole [address] Tab) pramipexole (pramipexole 0.75 mg oral tablet) predniSONE (predniSONE 5 mg Tab) revefenacin (Yupelri) trazodone (traZODONE 50 mg Tab) vitamin E zinc sulfate (Zinc) Procedures Performed Partial hysterectomy. What to do next You Need to Schedule the Following Appointments Follow Up with Sha SINGLETARY, KYLE Aguilera, URO When: Where: Medications What How Much When Instructions Unchanged amlodipine (amLODIPine 5 mg Tab) 1 Tablets Every day Contact prescribing physician if questions or concerns Unchanged arformoterol Nebulized inhalation (aerosol) Contact prescribing physician if questions or concerns Unchanged atorvastatin (atorvastatin 40 mg Tab) 1 Tablets Once a day (at bedtime) Contact prescribing physician if questions or concerns Unchanged budesonide Contact prescribing physician if questions or concerns Unchanged escitalopram (escitalopram 20 mg Tab) 1 Tablets Every day Contact prescribing physician if questions or concerns Unchanged gabapentin (gabapentin 300 mg Cap) 1 Capsules Every day Contact prescribing physician if questions or concerns Unchanged losartan (losartan 100 mg Tab) 1 Tablets By Mouth Every day Contact prescribing physician if questions or concerns Unchanged meloxicam (meloxicam 7.5 mg Tab) 1 Tablets Every day Contact prescribing physician if questions or concerns Unchanged metoprolol (metoprolol 100 mg ER Tab) 1 Tablets By Mouth Every day Contact prescribing physician if questions or concerns Unchanged multivitamin with minerals (Centrum Women 50 Plus Multigummies) Contact prescribing physician if questions or concerns Unchanged pantoprazole (Pantoprazole [address] Tab) 1 Tablets Every day Contact prescribing physician if questions or concerns Unchanged pramipexole (pramipexole 0.75 mg oral tablet) 1 Tablets Every day Contact prescribing physician if questions or concerns Unchanged predniSONE (predniSONE 5 mg Tab) 1 Tablets Every day Contact prescribing physician if questions or concerns Unchanged revefenacin (Yupelri) Inhalation Every day Contact prescribing physician if questions or concerns Unchanged trazodone (traZODONE 50 mg Tab) 1 Tablets Once a day (at bedtime) Contact prescribing physician if questions or concerns Unchanged vitamin E By Mouth Contact prescribing physician if questions or concerns Unchanged zinc sulfate (Zinc) 50 Milligram Contact prescribing physician if questions or concerns Allergies codeine (Nausea) Problems Ongoing - Any problem that you are currently receiving treatment for. Anxiety Appendix disease Bladder mass Cataract Chronic obstructive pulmonary disease (COPD) Depressed Former smoker Gross hematuria Hematuria Hernia of abdominal wall Hyperlipidemia Hypertension Osteoporosis Restless leg Patient Survey You may receive a survey via text or e-mail asking about your office visit. Please share your experience with us by completing your survey. We appreciate your feedback and thank you for choosing us for your care. Education Materials Transurethral Resection of Bladder Tumor Transurethral resection of a bladder tumor is the removal (resection) of cancerous tissue (tumor) from the inside wall of the bladder. The bladder is the organ that holds urine. The tumor is removed through the tube that carries urine out of the body (urethra). In a transurethral resection, a thin telescope with a light, a tiny camera, and an electric cutting edge (resectoscope) is passed through the urethra. In men, the opening of the urethra is at the end of the penis. In women, it is just above the opening of the vagina. Tell a health care provider about: ? Any allergies you have. ? All medicines you are taking, including vitamins, herbs, eye drops, creams, and xiqt-ege-kvmmlva medicines. ? Any problems you or family members have had with anesthetic medicines. ? Any bleeding problems you have. ? Any surgeries you have had. ? Any medical conditions you have, including recent urinary tract infections. ? Whether you are or may be . What are the risks? General (more content not included)... [facility] Formson 01-17-2024 Forms [id number]. 00TIFF [facility] Patient Educationon 01-17-20 24 Patient Education Oncology Transurethral Resection of Bladder Tumor Transurethral resection of a bladder tumor is the removal (resection) of cancerous tissue (tumor) from the inside wall of the bladder. The bladder is the organ that holds urine. The tumor is removed through the tube that carries urine out of the body (urethra). In a transurethral resection, a thin telescope with a light, a tiny camera, and an electric cutting edge (resectoscope) is passed through the urethra. In men, the opening of the urethra is at the end of the penis. In women, it is just above the opening of the vagina. Tell a health care provider about: ? Any allergies you have. ? All medicines you are taking, including vitamins, herbs, eye drops, creams, and mvcf-esh-hripnqc medicines. ? Any problems you or family members have had with anesthetic medicines. ? Any bleeding problems you have. ? Any surgeries you have had. ? Any medical conditions you have, including recent urinary tract infections. ? Whether you are or may be . What are the risks? Generally, this is a safe procedure. However, problems may occur, including: ? Infection. ? Bleeding. ? Allergic reactions to medicines. ? Damage to nearby structures or organs. ? Difficulty urinating from blockage of the urethra or not being able to urinate (urinary retention). ? Deep vein thrombosis. This is a blood clot that can develop in your leg. ? Recurring cancer. What happens before the procedure? When to stop eating and drinking Follow instructions from your health care provider about what you may eat and drink before your procedure. These may include: ? 8 hours before your procedure ? Stop eating most foods. Do not eat meat, fried foods, or fatty foods. ? Eat only light foods, such as toast or crackers. ? All liquids are okay except energy drinks and alcohol. ? 6 hours before your procedure ? Stop eating. ? Drink only clear liquids, such as water, clear fruit juice, black coffee, plain tea, and sports drinks. ? Do not drink energy drinks or alcohol. ? 2 hours before your procedure ? Stop drinking all liquids. ? You may be allowed to take medicines with small sips of water. Medicines Ask your health care provider about: ? Changing or stopping your regular medicines. This is especially important if you are taking diabetes medicines or blood thinners. ? Taking medicines such as aspirin and ibuprofen. These medicines can thin your blood. Do not take these medicines unless your health care provider tells you to take them. ? Taking sauz-zrf-zxqkqpv medicines, vitamins, herbs, and supplements. General instructions ? If you will be going home right after the procedure, plan to have a responsible adult: ? Take you home from the hospital or clinic. You will not be allowed to drive. ? Care for you for the time you are told. ? Ask your health care provider what steps will be taken to help prevent infection. These steps may include: ? Washing skin with a germ-killing soap. ? Taking antibiotic medicine. ? Do not use any products that contain nicotine or tobacco for at least 4 weeks before the procedure. These products include cigarettes, chewing tobacco, and vaping devices, such as e-cigarettes. If you need help quitting, ask your health care provider. What happens during the procedure? ? An IV will be inserted into one of your veins. ? You will be given one or more of the following: ? A medicine to help you relax (sedative). ? A medicine that is injected into your spine to numb the area below and slightly above the injection site (spinal anesthetic). ? A medicine that is injected into an area of your body to numb everything below the injection site (regional anesthetic). ? A medicine to make you fall asleep (general anesthetic). ? Your legs will be placed in foot rests (stirrups) to open your legs and bend your knees. ? The resectoscope will be passed through your urethra and into your bladder. ? The part of your bladder with the tumor will be resected by the cutting edge of the resectoscope. ? Fluid will be passed to rinse out the cut tissues (irrigation). ? The resectoscope will then be taken out. ? A small, thin tube (catheter) will be passed through your urethra and into your bladder. The catheter will drain urine into a bag outside of your body. The procedure may vary among health care providers and hospitals. What happens after the procedure? ? Your blood pressure, heart rate, breathing rate, and blood oxygen level will be monitored until you leave the hospital or clinic. ? You may continue to receive fluids and medicines through an IV. ? You will be given pain medicine to relieve pain. ? You will have a catheter to drain your urine. ? The amount of urine will be measured. If you have blood in your urine, your bladder may be rinsed out by passing fluid through your catheter. ? You will be encouraged to walk as soon as y (more content not included)... Normal [facility] Screenson 01-17-2024 Screens [id number] .00TIFF Normal [facility] Urine Cytology ([facility])on 0 01-17-2024 Method of Extraction Voided Normal [facility] Comment on above: Performed By: #### 1 [id number] #### [facility] [address] [place] [address] UC Number of Jars 1 Invalid Interpretation Code [facility] Comment on above: Performed By: #### 1 [id number] #### [facility] [address] [place] [address] Specimen Urine Normal [facility] Comment on above: Performed By: #### 1 [id number] #### [facility] [address] [facility] [place] [address] Type of Service Technical Only Normal [facility] Comment on above: Performed By: #### 1 [id number] #### [facility] [address] [place] [address] Office Visit (Cardiology)on 03-30-2023 Follow-up visit Diagnoses/Problems Assessed Dyspnea (786.09) (R06.00) Rdnda-3-jmzwknvxirm 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) Centrilobular emphysema (492.8) (J43.2) Former smoker (V15.82) (Z87.891) HTN (hypertension) (401.9) (I10) Mixed hyperlipidemia (272.2) (E78.2) Overweight with body mass index (BMI) of 26 to 26.9 in adult (278.02,V85.22) (E66.3,Z68.26) Orders Overweight with body mass index (BMI) of 26 to 26.9 in adult Healthy Weight Tips; Status:Complete - Retrospective Authorization; Done: [id number] Some eating tips that can help you lose weight.; Status:Complete - Retrospective Authorization; Done: [id number] SocHx: Former smoker Tobacco Use Screening; Status:Complete; Done: [id number] Patient Instructions Please bring all medicines, vitamins, [...] AM Social History Problems Former smoker (V15.82) (Z87.171) No alcohol use No caffeine use No [...] negative for complaint. Vitals Vital Signs Recorded: [id number] 10:39AM Heart Rate76, L Radial Dkthtoei224, LUE, Sitting Qpkuliybc37, LUE, Sitting Height4 ft 11 in Xozwqf534 lb BMI Kdwyxjijli18.86 kg/m2 BSA Calculated1.55 Tobacco Useb) No PHQ-2 [...] Pulmonary: n (more content not included)... Normal [facility] Tobacco Screening.on 023 Adult depression screening assessment No [facility] 250 DO Work Phone: Fall risk assessment a) No falls within the last year [facility] 250 DO Work Phone: Tobacco use status CP b) No [facility] 250 DO Work Phone: Echocardiogramon 03-09-2023 Echocardiography [facility] [address], [address] [facility], [place] [address] TRANSTHORACIC ECHOCARDIOGRAM REPORT Patient Name: SVETLANA MARIEGordy Hernández Physician: [id number] Benny Kang MD Study Date: 03/09/2023 Referring Physician: BENNY KANG MRN/PID: [id number] PCP: Accession/Order#: [id number] Department Location: [facility] Date of : 1955 Fellow: Gender: F Nurse: Admit Date: Zoning Assistant: Fatuma Vidales RDCS, RVT Height: 149.86 cm CC Report to: Weight: 59.88 kg Study Type: Echocardiogram BSA: 1.55 m2 Blood Pressure: 140 /78 mmHg Diagnosis/ICD: R06.00-Dyspnea, unspecified Indication: HTN, Hyperlipidemia, Former Smoker, Centrilobular Emphysema, Alpha-1 Antitrysin Deficiency, Overweight Procedure/CPT: Echo Complete w Full [id number] Study Detail: The following Echo studies were [...] 0.8 m/s (0.6-0.9m/s) PV Max P.7 mmHg [id number] Benny Kang MD Electronically signed on 03/10/2023 at 4:28:00 PM Final Normal [facility] CARDIAC STRESS/REST INJE CTIONon 03-09-2023 [facility] CARDIAC STRESS/REST INJECTION Patient Name: SVETLANA SILVA STUDY: MYOCARDIAL PERFUSION STRESS TEST WITH LEXISCAN Performing facility: [facility], [address] [place] [address], [address], [place] [address] [facility] Provider: Benny Kang MD PCP: Dr. David Allan Supervising provider: Polina Palomino MD, [facility] INDICATION: Dyspnea HISTORY: Gender: F; Age: 67 y/o ; Height: 0 cm; Weight: 0 kg. High Cholesterol; HTN; SOB; COPD; Emphysema Quit smoking 3.5 years ago. COMPARISON: No comparison. ACCESSION NUMBER(S): [id number]; [id number]; [id number] ORDERING CLINICIAN: BENNY KANG TECHNIQUE: ONE DAY [...] Electronically signed by: MAURISIO GODOY MD Normal [facility] No Panel Informationon 03-09 Normal 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 : dyspnea Overweight with body mass index (BMI) of 26 to 26.9 in adult Healthy Weight Tips; Status:Complete; Done: [id number] Some eating tips that can help you lose weight.; Status:Complete; Done: [id number] SocHx: Former smoker Tobacco Use Screening; Status:Complete; Done: [id number] Patient Instructions Please bring all medicines, vitamins, [...] no sei (more content not included)... Normal [employer] Tobacco Screening.on 023 Adult depression screening assessment No [facility] [employer] 250 DO Work Phone: Fall risk assessment b) One or more fall s in the last year [facility] [employer] 250 DO Work Phone: Tobacco use status CPHS b) No [facility] [employer] 250 DO Work Phone: XR CHEST 2 [...] by: FRANCIS ANDERSON Date: 2022-10-17 15:20 Normal [facility] CT LUNG CANCER SCREENINGon 0 08-17-2022 [...] THERESA LUCIA Date: 2022-08-17 07:32 Normal [facility] PROF 14(COMP METB)on 022 Albumin [Mass/Vol] 3.9 g/dL Normal 3.4-5.0 [facility] Comment on above: Performed By: #### C MP #### [facility] [address] [place] [address] Dr. Shelby Rodriguez Albumin/Globulin [Mass ratio] 1.2 {ratio} Normal [facility] Comment on above: Performed By: #### C MP #### [facility] [address] [place] [address] Dr. Shelby Rodriguez ALP [Catalytic activity/Vol] 60 U/L Normal 46-116 [facility] Comment on above: Performed By: #### C MP #### [facility] [address] [place] [address] Dr. Shelby Rodriguez ALT [Catalytic activity/Vol] 35 U/L Normal 14-59 [facility] Comment on above: Performed By: #### C MP #### [facility] [address] [place] [address] Dr. Shelby Rodriguez Anion gap [Moles/Vol] 10.3 mmol/L Normal [facility] Comment on above: Performed By: #### C MP #### [facility] [address] [place] [address] Dr. Shelby Rodriguez AST [Catalytic activity/Vol] 22 U/L Normal 15-37 [facility] Comment on above: Performed By: #### C MP #### [facility] [address] [address] [address] Shelby Rodriguez Bilirubin [Mass/Vol] 0.5 mg/dL Normal 0.2-1.0 [facility] Comment on above: Performed By: #### C MP #### [facility] [address] [address] [address] Shelby Rodriguez Calcium [Mass/Vol] 9.4 mg/dL Normal 8.5-10.1 [facility] Comment on above: Performed By: #### C MP #### [facility] [address] [place] [address] Dr. Shelby Rodriguez Chloride [Moles/Vol] 105 mmol/L Normal 98-107 [facility] Comment on above: Performed By: #### C MP #### [facility] [address] [address] [address] Shelby Rodriguez CO2 [Moles/Vol] 30.5 mmol/L Normal 21.0-32.0 [facility] Comment on above: Performed By: #### C MP #### [facility] [address] [place] [address] Dr. Shelby Rodriguez Creatinine [Mass/Vol] 0.87 mg/dL Normal 0.55-1.02 [facility] Comment on above: Performed By: #### C MP #### [facility] [address] [address] [address] Shelby Rodriguez EGFR-AF MALIAN >60 Normal >=60 [facility] Comment on above: Performed By: #### C MP #### [facility] [address] [address] [address] Shelby Rodriguez EGFR-NON AF MALIAN >60 Normal >=60 [facility] Comment on above: Performed By: #### C MP #### [facility] [address] [place] [address] Dr. Shelby Rodriguez Globulin (S) [Mass/Vol] 3.2 g/dL Normal [facility] Comment on above: Performed By: #### C MP #### [facility] [address] [address] [address] Shelby Rodriguez Glucose [Mass/Vol] 122 mg/dL Critically high 74-[address] [facility] Comment on above: Performed By: #### C MP #### [facility] [address] [address] [address] Shelby Rodriguez Potassium [Moles/Vol] 4.8 mmol/L Normal 3.5-5.1 [facility] Comment on above: Performed By: #### C MP #### [facility] [address] [address] [address] Shelby Rodriguez Protein [Mass/Vol] 7.1 g/dL Normal 6.4-8.2 [facility] Comment on above: Performed By: #### C MP #### [facility] [address] [address] [address] Shelby Rodriguez Sodium [Moles/Vol] 141 mmol/L Normal 136-145 [facility] Comment on above: Performed By: #### C MP #### [facility] [address] [address] [address] Shelby Rodriguez Urea nitrogen [Mass/Vol] 14.0 mg/dL Normal 7.0-18.0 [facility] Comment on above: Performed By: #### C MP #### [facility] [address] [address] [address] Shelby Rodriguez Urea nitrogen/Creatinine [Mass ratio] 16.1 mg/mg Normal [facility] Comment on above: Performed By: #### C MP #### [facility] [address] [address] [address] Shelby Rodriguez Vital Signs Date Time Vital Sign Value Performing Clinician Facility 11-28-2023 15:41-0400 Body height 149.9 cm Benny Kang MD Work Phone: [facility] 11-28-2023 15:41-0400 Body mass index (BMI) [Ratio] 25.45 kg/m2 Benny Kang MD Work Phone: [facility] 11-28-2023 15:41-0400 Body weight 57.15 kg Benny Kang MD Work Phone: [facility] 11-28-2023 15:41-0400 Diastolic blood pressure 80 mm[Hg] Benny Kang MD Work Phone: [facility] 11-28-2023 15:41-0400 Heart rate 66 /min Benny Kang MD Work Phone: [facility] 11-28-2023 15:41-0400 Systolic blood pressure 130 mm[Hg] Benny Kang MD Work Phone: [facility] 09-24-2023 18:05-0500 Body height 149.9 cm Shaikh Jerrell SINGLETARY Work Phone: [facility] 09-24-2023 18:05-0500 Body mass index (BMI) [Ratio] 24.64 kg/m2 Shaikh Jerrell SINGLETARY Work Phone: [facility] 09-24-2023 18:05-0500 Body temperature 97 [degF] Shaikh Jerrell SINGLETARY Work Phone: [facility] 09-24-2023 18:05-0500 Body weight 55.34 kg Shaikh Jerrell SINGLETARY Work Phone: [facility] 09-24-2023 18:05-0500 Diastolic blood pressure 80 mm[Hg] Shaikh Jerrell SINGLETARY Work Phone: [facility] 09-24-2023 18:05-0500 Heart rate 90 /min Shaikh Jerrell SINGLETARY Work Phone: [facility] 09-24-2023 18:05-0500 SaO2% (BldA) [Mass fraction] 97 % Shaikh Jerrell SINGLETARY Work Phone: [facility] 02-12-2024 18:05-0500 Systolic blood pressure 132 mm[Hg] Khanearnestine Allan MD Work Phone: [facility] 03-30-2023 10:39-0400 Body height 149.86 cm Shaikh Jerrell Work Phone: [facility] 250 DO Work Phone: 03-30-2023 10:39-0400 Body mass index (BMI) [Ratio] 26.86 kg/m2 Shaikh Jerrell Work Phone: [facility] 250 DO Work Phone: 03-30-2023 10:39-0400 Body surface area Derived from formula 1.55 m2 Shaikh Gavitrina Work Phone: [facility] 250 DO Work Phone: 03-30-2023 10:39-0400 Body weight 60.33 kg Shaikh Jerrell Work Phone: [facility] 250 DO Work Phone: 03-30-2023 10:39-0400 Diastolic blood pressure 70 mm[Hg] Shaikh Chikawad Work Phone: [facility] 250 DO Work Phone: 03-30-2023 10:39-0400 Heart rate 76 /min Shaikh Gavid Work Phone: [facility] 250 DO Work Phone: 03-30-2023 10:39-0400 Systolic blood pressure 122 mm[Hg] Shaikh Chikawad Work Phone: [facility] 250 DO Work Phone: 01-26-2023 11:30-0400 Diastolic blood pressure 92 mm[Hg] Shaikh Chikawad Work Phone: [facility] 250 DO Work Phone: 01-26-2023 11:30-0400 Systolic blood pressure 164 mm[Hg] Shaikh Chikawad Work Phone: [facility] 250 DO Work Phone: 01-26-2023 11:29-0400 Body height 149.86 cm Shaikh Gavid Work Phone: [facility] 250 DO Work Phone: 01-26-2023 11:29-0400 Body mass index (BMI) [Ratio] 26.66 kg/m2 Shaikh Chikawad Work Phone: [facility] 250 DO Work Phone: 01-26-2023 11:29-0400 Body surface area Derived from formula 1.55 m2 Shaikh Chikawad Work Phone: [facility] 250 DO Work Phone: 01-26-2023 11:29-0400 Body weight 59.88 kg Shaikh Gavid Work Phone: [facility] 250 DO Work Phone: 01-26-2023 11:29-0400 Diastolic blood pressure 100 mm[Hg] Shaikh Chikawad Work Phone: [facility] 250 DO Work Phone: 01-26-2023 11:29-0400 Heart rate 91 /min Shaikh Chikawad Work Phone: [facility] 250 DO Work Phone: 01-26-2023 11:29-0400 Systolic blood pressure 184 mm[Hg] Shaikh Chikawad Work Phone: [facility] 250 DO Work Phone: Encounters Encounter Date Encounter Type Care Provider Facility Start: 01-23-2024 End: 01-23-2024 ambulatory MD Lin Dalton Work Phone: [facility] Work Phone: Start: 01-23-2024 End: 01-23-2024 Departed Referred MD Lin Datlon Work Phone: [facility] Start: 01-21-2024 End: 01-21-2024 ambulatory Lin SophiaSvetlana Jamisondarian Facility:[facility] Start: 01-21-2024 End: 01-21-2024 Patient encounter procedure Lin MSvetlana Jamisondarian [facility] Start: 01-17-2024 End: 01-17-2024 Lab Drop off Lin SophiaSvetlana Jamisondarian [facility] Start: 01-17-2024 End: 01-17-2024 ambulatory Lin SophiaSvetlana Jamisondarian Facility:[facility] Start: 01-17-2024 End: 01-17-2024 Patient encounter procedure Lin Dalton [facility] Start: 01-14-2024 ambulatory Lin Dalton Facility:[facility] Start: 12-31-2023 End: 12-31-2023 ambulatory SHAIKH JERRELL Not Available Start: 11-28-2023 End: 11-28-2023 ambulatory [facility] Start: 11-28-2023 End: 11-28-2023 Office outpatient visit 15 minutes Benny Kang MD Work Phone: [facility] Comment on above: Shortness of breath (Primary Dx); Essential hypertension; Mixed hyperlipidemia; [id number] deficiency (Multi); Centrilobular emphysema (Multi); Former smoker; [...] Orders Only Shaikh Jerrell SINGLETARY Work Phone: [facility] Comment on above: Primary hypertension (CMS/HCC) (Primary Dx) Start: 08-23-2023 End: 08-23-2023 ambulatory SHAIKH JERRELL Not Available Start: 08-02-2023 Patient encounter procedure Shaikh Jerrell SINGLETARY Work Phone: [facility] Start: 08-02-2023 End: 08-02-2023 ambulatory SHAIKH JERRELL Not Available Start: 03-30-2023 Office outpatient vi sit 15 minutes Shaikh Jerrell Work Phone: [facility] 250 DO Work Phone: Start: 03-30-[address] Benny Kang Facility:[id number] Start: 03-11-2023 Chart Update Shaikh Jerrell Work Phone: [facility] 250 DO Work Phone: Start: 03-10-2023 Chart Update Shaikh Jerrell Work Phone: [facility] 250 DO Work Phone: Start: 03-09-[address] Benny Kang Facility:[id number] Start: 01-26-2023 Office consultation new/estab patient 60 min Shaikh Pujawwatrina Work Phone: [facility] 250 DO Work Phone: Start: 01-26-[address] Benny Kang Facility:[id number] Start: 01-02-2023 ambulatory ÁLVARO HUTSON . Facility :[facility] Start: 10-17-2022 End: 10-18-2022 ambulatory ÁLVARO HUTSON . Facility:[facility] Start: 08-16-2022 End: 08-17-2022 ambulatory ÁLVARO HUTSON . Facility:[facility] Start: 04-20-2022 End: 04-21-2022 ambulatory SHAIKH Earnestine ALLAN Facility: Procedures Date Procedure Procedure Detail Performing Clinician Start: 03-09-2023 Echocardiography Shaikh Jerrell Work Phone: Start: 03-04-2023 Mammography Shaikh Chika salazar MD Work Phone: Start: 09-11-2017 Colonoscopy Shaikh Chika salazar MD Work Phone: Appendectomy Shaikh Jerrell Work Phone: Cataract surgery Shaikh Huy coley Work Phone: Colonoscopy Shaikh Jerrell Work Phone: Hysterectomy Shaikh Jerrell Work Phone: Partial hysterectomy Lin Hannah udarian Surgical procedure o n eye proper Shaikh Jerrell Work Phone: Plan of Treatment Date Care Activity Detail Author Start: 09-11-2027 Screening for malign ant neoplasm of colon [facility] Start: 09-02-2024 End: 09-02-2024 Patient encounter procedure 09/02/2024 1:30 PM EST Office Visit [facility] [address] [address] Benny Kagn MD [address] [facility] [address], [address] [place] [address] [facility] Start: 12-21-2024 Medicare Annual Well ness (AWV) Medicare Annual Wellness (AWV) [facility] Start: 03-04-2024 Screening for malign ant neoplasm of breast Mammogram [facility] Start: 11-22-2023 End: 11-22-2023 Patient encounter procedure 11/22/2023 11:30 AM EDT Office Visit [facility] [address] [place] [address] Shaikh Allan MD [address] [place] [address] [facility] Start: 10-05-2023 FUV, Provider: Benny Kang, Status: Pen, Time: 9:20 AM FUV, Provider: Benny Kang, Status: Pen, Time: 9:20 AM [facility] DO Work Phone: Start: 09-24-2023 End: 09-24-2023 Patient encounter procedure 09/24/2023 5:45 PM EST Office Visit [facility] [address] [place] [address] Shaikh Allan MD [address] [place] [id number] [facility] Start: 04-13-2023 COVID-19 Vaccine ( season) COVID-19 Vaccine ( season) [facility] Start: 03-30-2023 FUV, Provider: Benny Kang, Status: Pen, Time: 10:30 AM FUV, Provider: Benny Kang, Status: Pen, Time: 10:30 AM [facility] 250 DO Work Phone: Start: 03-09-2023 ECHO, Provider: JOHN PAUL PINOI ULTRASOUND ,[id number], Status: Pen, Time: 10:45 AM ECHO, Provider: CHUY JOHN ULTRASOUND 01,[id number], Status: Pen, Time: 10:45 AM [facility] 250 DO Work Phone: Start: 03-09-2023 STRESS NUC, Provider : CHUY JOHN NUCLEAR 01,[id number], Status: Pen, Time: 8:30 AM STRESS NUC, Provider: CHUY JOHN NUCLEAR 01,[id number], Status: Pen, Time: 8:30 AM [facility] 250 DO Work Phone: Start: 04-26-2021 DTaP/Tdap/Td Vaccine s (1 - Tdap) DTaP/Tdap/Td Vaccines (1 - Tdap) [facility] Start: 2013 Hepatitis B Vaccines (1 of 3 - Risk 3-dose series) Hepatitis B Vaccines (1 of 3 - Risk 3-dose series) [facility] Start: 1993 Screening for malign ant neoplasm of breast Mammogram [facility] Start: 1972 Hepatitis A Vaccines (1 of 2 - Risk 2-dose series) Hepatitis A Vaccines (1 of 2 - Risk 2-dose series) [facility] Start: 1971 Diabetes mellitus screening Diabetes Screening [facility] Start: 1971 Hepatitis C screening Hepatitis C Sc reening [facility] Start: 1953 Lipid panel Lipid Panel [facility] Start: 1953 Medicare Annual Well ness Visit Medicare Annual Wellness Visit (AWV) [facility] Start: 1953 Screening for malign ant neoplasm of colon [facility] Start: 1953 Screening for osteoporosis Bone Density Scan [facility] Immunizations Immunization Date Immunization Notes Care Provider Fa cility 05-26-2023 ABRYSVO - Respirator y syncytial virus (RSV), vaccine, bivalent, protein subunit RSV prefusion F, diluent reconstituted, 0.5 mL, PF Shaikh Jerrell SINGLETARY Work Phone: [facility] 05-24-2023 Influenza, High-dose Seasonal, Quadrivalent, Preservative Free Shaikh Jerrell SINGLETARY Work Phone: [facility] 05-24-2023 Pneumococcal Conjuga te PCV 20 Shaikh Jerrell SINGLETARY Work Phone: [facility] 05-03-2023 pneumococcal conjuga te 20-valent (Prevnar 20) 0.5 ML vaccine Shaikh Jerrell SINGLETARY Work Phone: [facility] 10-27-2022 [facility]oster [facility] Work Phone: [place] [address] DO Work Phone: 08-27-2022 zoster vaccine recombinant Khan Chikamarie Work Phone: [address] [place] [address] DO Work Phone: 06-03-2022 Fluzone High-Dose Quadrivalent 0.7 ML Intramuscular Suspension Prefilled Syringe Khan [employer] Work Phone: [place] [address] DO Work Phone: 06-03-2022 influenza, seasonal, injectable Benny Kang MD Work Phone: [facility] Work Phone: 08-03-2021 Pfizer-BioNTech COVID-19 Vacc 30 MCG/0.3ML Intramuscular Suspension Khan [employer] Work Phone: [place] [address] DO Work Phone: 06-02-2021 Fluzone High-Dose Quadrivalent 0.7 ML Intramuscular Suspension Prefilled Syringe Khan Chikawatrina Work Phone: [place] [address] DO Work Phone: 04-25-2021 diphtheria, tetanus toxoids and pertussis vaccine Kahn Jerrell Work Phone: [facility] 04-25-2021 tetanus and diphther ia toxoids, adsorbed, preservative free, for adult use (2 Lf of tetanus toxoid and 2 Lf of diphtheria toxoid) Benny Kang MD Work Phone: [facility] Work Phone: 12-23-2020 Pfizer-BioNTech COVID-19 Vacc 30 MCG/0.3ML Intramuscular Suspension Khan Fawwad Work Phone: [facility] 250 DO Work Phone: 12-02-2020 Pfizer-BioNTech COVID-19 Vacc 30 MCG/0.3ML Intramuscular Suspension Khan Fawwad Work Phone: [facility] 250 DO Work Phone: 07-21-2014 influenza, seasonal, injectable Khan Fawwad Work Phone: [facility] 250 DO Work Phone: 06-21-2013 influenza, seasonal, injectable Khan Fawwad Work Phone: [facility] 250 DO Work Phone: 08-31-2012 influenza, seasonal, injectable, preservative free Khan Fawwad Work Phone: [facility] 250 DO Work Phone: Payers Date Payer Category Payer Medicare [id number] 1961 Medicare [id number] 1961 Private Health Insurance [facility] [id number] 1955 Unknown [id number] 2.16.84 [id number] 1953 Unknown [id number] 2.16.84 0.1.692877.3.579.2.593 1953 Unknown [id number] 2.16.84 0.1.904681.3.579.2.593 1953 Unknown [id number] 2.16.84 0.1.717857.3.579.2.593 1953 Unknown [id number] 2.16. 840.1.608160.3.579.2.356 1953 Unknown [id number] 2.16. 840.1.245793.3.579.2.356 1953 Unknown [id number] 2.16. 840.1.755488.3.579.2.356 1953 Unknown [id number] 2.16.8 40.1.803270.3.579.2.1068 1953 Unknown [id number] 2.16.8 40.1.574752.3.579.2.1244 1953 Unknown [id number] 2.16.84 0.1.933823.3.579.2.1259 1953 Unknown [id number] 2.16.84 0.1.916162.3.579.2.1259 1953 Unknown [id number] 2.16.84 0.1.697691.3.579.2.1259 1953 Unknown [id number] 2.16.84 0.1.405313.3.579.2.1259 1953 Unknown [id number] 2.16.840 .1.503565.3.579.2.1259 1953 Unknown [id number] 2.16.8 40.1.670207.3.579.2.727 1953 Unknown [id number] 2.16.8 40.1.228578.3.579.2.727 1953 Unknown [id number] 2.16.8 40.1.021031.3.579.2.727 Medicaid [id number] Private Health Insurance [facility] [id number] Self-pay Self Pay [id number] Unknown Social History Date Type Detail Facility Start: 08-29-2023 End: 11-28-2023 No caffeine use No caffeine use -[facility] Myers DO Work Phone: Start: 08-29-2023 End: 01-17-2024 Tobacco smoking status NHIS Ex-smoker [facility] Start: 10-25-2017 End: 06-28-2020 History of tobacco use Current smoker [facility] End: 06-28-2020 History of tobacco use Cigarette Smoker [facility] Start: 08-29-2023 End: 11-28-2023 Tobacco use and exposure Smokeless tobacco non-user [facility] Start: 08-29-2023 End: 11-28-2023 Alcohol intake Lifetime non-drinker (finding) [facility] Start: 08-29-2023 End: 11-28-2023 Tobacco use panel [facility] Start: 07-18-2023 Alcohol Comment caffeine: 1-2 cups per day [facility] Start: 1955 Sex Assigned At Not on file [facility] Start: 11-18-2023 End: 11-28-2023 Exposure to SARS-CoV-2 (event) Not sure [facility] Start: 1955 Sex Assigned At Female [facility] NEGATED: Highlighted rowStart: NINF History of tobacco use Passive smoker [facility] Medical Equipment Procedure Code Equipment Code Equipment Original Text Equipment Identifier Dates Phacoemulsification of cataract with intraocular lens implantation LENS ACRYSOF IOL [id number] FDA Start: 09-27-2017 Phacoemulsification of cataract with intraocular lens implantation LENS ACRYSOF IOL [id number] FDA Start: 10-25-2017 Clinical Notes 01-26-2023 to 01-21-2024 Benny Kang MD - 11/28/2023 2:50 PM EDTPatient InstructionsShaikh Jerrell MD - 09/24/2023 6:31 PM Alberto Allan MD - 09/24/2023 5:45 PM EST Note Date & Type Note Facility 01-21-2024 Hospital Discharg e instructions Patient Education 01/21/2024 08:52:05 EU - Cystoscopy Discharge Instructions (CUSTOM) Cystoscopy Voiding after the procedure: there may be some pain, burning, urgency, frequency and blood tinged urine following the procedure. These symptoms usually resolve within 2-5 days. Drink the amount of fluid it takes to keep the urine pink to yellow or clear in color. Drinking enough water and fluids will help to ease any discomfort after your procedure. If you are having problems that seem out of the ordinary, please call. If unable to contact your physician and you feel it is an emergency, go to the nearest emergency room or call 911 Diet you may resume your normal diet. Activity you may resume your normal activities Call if you have a fever over 100 degrees. Follow Up Care 01/17/2024 11:22:58 With:Lin Dalton Address:Unknown When: Unknown Comments:Keep scheduled appointment for TURBT, possible left ureteral stent [facility] 01-21-2024 Note [id number] [facility] 01-21-2024 Note Cystoscopy ? Voiding after the procedure: there may be some pain, burning, urgency, frequency and blood tinged urine following the procedure. These symptoms usually resolve within 2-5 days. Drink the amount of fluid it takes to keep the urine pink to yellow or clear in color. Drinking enough water and fluids will help to ease any discomfort after your procedure. ? If you are having problems that seem out of the ordinary, please call. ? If unable to contact your physician and you feel it is an emergency, go to the nearest emergency room or call 911 ? Diet ? you may resume your normal diet. ? Activity ? you may resume your normal activities ? Call if you have a fever over 100 degrees. [facility] 01-17-2024 [facility] Discharg e instructions Patient Education 01/17/2024 11:15:35 Transurethral Resection of Bladder Tumor Transurethral Resection of Bladder Tumor Transurethral resection of a bladder tumor is the removal (resection) of cancerous tissue (tumor) from the inside wall of the bladder. The bladder is the organ that holds urine. The tumor is removed through the tube that carries urine out of the body (urethra). In a transurethral resection, a thin telescope with a light, a tiny camera, and an electric cutting edge (resectoscope) is passed through the urethra. In men, the opening of the urethra is at the end of the penis. In women, it is just above the opening of the vagina. Tell a health care provider about: Any allergies you have. All medicines you are taking, including vitamins, herbs, eye drops, creams, and zpmu-[id number] medicines. Any problems you or family members have had with anesthetic medicines. Any bleeding problems you have. Any surgeries you have had. Any medical conditions you have, including recent urinary tract infections. Whether you are or may be . What are the risks? Generally, this is a safe procedure. However, problems may occur, including: Infection. Bleeding. Allergic reactions to medicines. Damage to nearby structures or organs. Difficulty urinating from blockage of the urethra or not being able to urinate (urinary retention). Deep vein thrombosis. This is a blood clot that can develop in your leg. Recurring cancer. What happens before the procedure? When to stop eating and drinking Follow instructions from your health care provider about what you may eat and drink before your procedure. These may include: 8 hours before your procedure ?Stop eating most foods. Do not eat meat, fried foods, or fatty foods. ?Eat only light foods, such as toast or crackers. ?All liquids are okay except energy drinks and alcohol. 6 hours before your procedure ?Stop eating. ?Drink only clear liquids, such as water, clear fruit juice, black coffee, plain tea, and sports drinks. ?Do not drink energy drinks or alcohol. 2 hours before your procedure ?Stop drinking all liquids. ?You may be allowed to take medicines with small sips of water. Medicines Ask your health care provider about: Changing or stopping your regular medicines. This is especially important if you are taking diabetes medicines or blood thinners. Taking medicines such as aspirin and ibuprofen. These medicines can thin your blood. Do not take these medicines unless your health care provider tells you to take them. Taking inlp-slx-njrgsxf medicines, vitamins, herbs, and supplements. General instructions If you will be going home right after the procedure, plan to have a responsible adult: ?Take you home from the hospital or clinic. You will not be allowed to drive. ?Care for you for the time you are told. Ask your health care provider what steps will be taken to help prevent infection. These steps may include: ? Washing skin with a germ-killing soap. ? Taking antibiotic medicine. Do not use any products that contain nicotine or tobacco for at least 4 weeks before the procedure. These products include cigarettes, chewing tobacco, and vaping devices, such as e-cigarettes. If you need help quitting, ask your health care provider. What happens during the procedure? An IV will be inserted into one of your veins. You will be given one or more of the following: ?A medicine to help you relax (sedative). ?A medicine that is injected into your spine to numb the area below and slightly above the injection site (spinal anesthetic). ?A medicine that is injected into an area of your body to numb everything below the injection site (regional anesthetic). ?A medicine to make you fall asleep (general anesthetic). Your legs will be placed in foot rests (stirrups) to open your legs and bend your knees. The resectoscope will be passed through your urethra and into your bladder. The part of your bladder with the tumor will be resected by the cutting edge of the resectoscope. Fluid will be passed to rinse out the cut tissues (irrigation). The resectoscope will then be taken out. A small, thin tube (catheter) will be passed through your urethra and into your bladder. The catheter will drain urine into a bag outside of your body. The procedure may vary among health care providers and hospitals. What happens after the procedure? Your blood pressure, heart rate, breathing rate, and blood oxygen level will be monitored until you leave the hospital or clinic. You may continue to receive fluids and medicines through an IV. You will be given pain medicine to relieve pain. You will have a catheter to drain your urine. ?The amount of urine will be measured. If you have blood in your urine, your bladder may be rinsed out by passing fluid through your catheter. You will be encouraged to walk as soon as you can. You may have to wear compression stockings. These stockings help to prevent blood clots and reduce swelling in your legs. If you were given a sedative during the procedure, it can affect you for several hours. Do not drive or operate machinery until your health care provider says that it is safe. Summary Transurethral resection of a bladder tumor is the removal (resection) of a cancerous growth (tumor) on the inside wall of the bladder. To do this procedure, your health care provider uses a thin telescope with a light, a tiny camera, and an electric cutting edge (resectoscope) that is guided to your bladder through your urethra. The part of your bladder that is affected by the tumor will be resected by the cutting edge of the resectoscope. A catheter will be passed through your urethra and into your bladder. The catheter will drain urine into a bag outside of your body. If you will be going home right after the procedure, plan to have a responsible adult take you home from the hospital or clinic. You will not be allowed to drive. This information is not intended to replace advice given to you by your health care provider. Make sure you discuss any questions you have with your health care provider. Document Revised: 08/04/2022 Document Reviewed: 08/04/2022 [employer] Patient Education 2022 [employer]. 01/17/2024 10:58:38 Cystoscopy Cystoscopy Cystoscopy is a procedure that is used to help diagnose and sometimes treat conditions that affect the lower urinary tract. The lower urinary tract includes the bladder and the urethra. The urethra is the tube that drains urine from the bladder. Cystoscopy is done using a thin, tube-shaped instrument with a light and camera at the end (cystoscope). The cystoscope may be hard or flexible, depending on the goal of the procedure. The cystoscope is inserted through the urethra, into the bladder. Cystoscopy may be recommended if you have: Urinary tract infections that keep coming back. Blood in the urine (hematuria). An inability to control when you urinate (urinary incontinence) or an overactive bladder. Unusual cells found in a urine sample. A blockage in the urethra, such as a urinary stone. Painful urination. An abnormality in the bladder found during an intravenous pyelogram (IVP) or CT scan. Cystoscopy may also be done to remove a sample of tissue to be examined under a microscope (biopsy). Tell a health care provider about: Any allergies you have. All medicines you are taking, including vitamins, herbs, eye drops, creams, and zbqh-pns-gaanzjj medicines. Any problems you or family members have had with anesthetic medicines. Any blood disorders you have. Any surgeries you have had. Any medical conditions you have. Whether you are or may be . What are the risks? Generally, this is a safe procedure. However, problems may occur, including: Infection. Bleeding. Allergic reactions to medicines. Damage to other structures or organs. What happens before the procedure? Medicines Ask your health care provider about: Changing or stopping your regular medicines. This is especially important if you are taking diabetes medicines or blood thinners. Taking medicines such as aspirin and ibuprofen. These medicines can thin your blood. Do not take these medicines unless your health care provider tells you to take them. Taking mjxf-zni-jufcybo medicines, vitamins, herbs, and supplements. Tests You may have an exam or testing, such as: X-rays of the bladder, urethra, or kidneys. CT scan of the abdomen or pelvis. Urine tests to check for signs of infection. General instructions Follow instructions from your health care provider about eating or drinking restrictions. Ask your health care provider what steps will be taken to help prevent infection. These steps may include: ?Washing skin with a germ-killing soap. ?Taking antibiotic medicine. Plan to have a responsible adult take you home from the hospital or clinic. What happens during the procedure? You will be given one or more of the following: ?A medicine to help you relax (sedative). ?A medicine to numb the area (local anesthetic). The area around the opening of your urethra will be cleaned. The cystoscope will be passed through your urethra into your bladder. Germ-free (sterile) fluid will flow through the cystoscope to fill your bladder. The fluid will stretch your bladder so that your health care provider can clearly examine your bladder jessica. Your doctor will look at the urethra and bladder. Your doctor may take a biopsy or remove stones. The cystoscope will be removed, and your bladder will be emptied. The procedure may vary among health care providers and hospitals. What can I expect after the procedure? After the procedure, it is common to have: Some soreness or pain in your abdomen and urethra. Urinary symptoms. These include: ?Mild pain or burning when you urinate. Pain should stop within a few minutes after you urinate. This may last for up to 1 week. ?A small amount of blood in your urine for several days. ?Feeling like you need to urinate but producing only a small amount of urine. Follow these instructions at home: Medicines Take qubv-tyi-thpenhu and prescription medicines only as told by your health care provider. If you were prescribed an antibiotic medicine, take it as told by your health care provider. Do not stop taking the antibiotic even if you start to feel better. General instructions Return to your normal activities as told by your health care provider. Ask your health care provider what activities are safe for you. If you were given a sedative during the procedure, it can affect you for several hours. Do not drive or operate machinery until your health care provider says that it is safe. Watch for any blood in your urine. If the amount of blood in your urine increases, call your health care provider. Follow instructions from your health care provider about eating or drinking restrictions. If a tissue sample was removed for testing (biopsy) during your procedure, it is up to you to get your test results. Ask your health care provider, or the department that is doing the test, when your results will be ready. Drink enough fluid to keep your urine pale yellow. Keep all follow-up visits. This is important. Contact a health care provider if: You have pain that gets worse or does not get better with medicine, especially pain when you urinate. You have trouble urinating. You have more blood in your urine. Get help right away if: You have blood clots in your urine. You have abdominal pain. You have a fever or chills. You are unable to urinate. Summary Cystoscopy is a procedure that is used to help diagnose and sometimes treat conditions that affect the lower urinary tract. Cystoscopy is done using a thin, tube-shaped instrument with a light and camera at the end. After the procedure, it is common to have some soreness or pain in your abdomen and urethra. Watch for any blood in your urine. If the amount of blood in your urine increases, call your health care provider. If you were prescribed an antibiotic medicine, take it as told by your health care provider. Do not stop taking the antibiotic even if you start to feel better. This information is not intended to replace advice given to you by your health care provider. Make sure you discuss any questions you have with your health care provider. Document Revised: 04/12/2022 Document Reviewed: 03/11/2021 [employer] Patient Education 2022 [employer]. Follow Up Care 01/14/2024 11:56:48 With:Sha SINGLETARY, KYLE Aguilera, URO Address: When: Unknown [facility] 11-28-2023 History of Presen t illness Narrative Subjective Svetlana Silva is a [...] Up In Cardiology 3. Mixed hyperlipidemia 4. Nntlz-9-kyyoeqggzua deficiency (Multi) 5. Centrilobular emphysema (Multi) 6. Former smoker 7. BMI 25.0-25.9,adult Scribe Attestation By signing my name below, Iesha Fulton LPN , Scribe attest that this documentation has been [...] discussion and plan. documented in this encounter [facility] Work Phone: 11-28-2023 Instructions Iesha Roper LPN - 11/28/2023 [...] instructions on exercise. documented in this encounter [facility] Work Phone: 09-24-2023 History of Presen t illness Narrative [...] major depressive disorder without prior episode (HCC) ([facility]/HCC) - Primary Patient was seen last appointment [...] weeks (around 11/05/2023). documented in this encounter [facility] 01-26-2023 History of Presen t illness Narrative Patient is here for cardiovascular [...] function test, lab work and remote echo1.Plan -[facility] [email or web address] 250 DO Work Phone: Chief complaint Narrative - Reported SVETLANA SILVA is being seen for a consultation for shortness of breath. [facility] [email or web address] 250 DO Work Phone: Evaluation + Plan note Future Appointments Appointment Date:01/18/2024 10:30:00 AM Scheduled Provider: Location:[facility] Appointment Type:Urology CALL PAT Appointment Date:01/21/2024 08:00:00 AM Scheduled Provider: Location:[facility] Appointment Type:Urology FT [facility] Evaluation + Plan note Future Appointments Appointment Date:01/18/2024 10:30:00 AM Scheduled Provider: Location:[facility] Appointment Type:Urology CALL PAT FT Appointment Date:01/21/2024 08:00:00 AM Scheduled Provider: Location:[facility] Appointment Type:Urology FT Diagnostic Tests PendingUrine Cytology ([facility]) 01/17/24 [facility] Evaluation note Diagnosis Primary hypertension (CMS/HCC)- Primary Unspecified essential hypertension [facility] Diagnosis Current moderate episode of major depressive disorder without prior episode (HCC) (CMS/HCC)- Primary [facility] Diagnosis Shortness of breath- Primary Essential hypertension Unspecified essential hypertension Mixed hyperlipidemia Ihhnv-6-jrdoagngqco deficiency (Multi) Oqars-3-qjbjrfnxgtu deficiency Centrilobular emphysema (Multi) Former smoker Personal history of tobacco use, presenting hazards to health BMI 25.0-25.9,adult documented in this encounter [facility] Work Phone: Evaluation noteNo assessment information available [facility] Work Phone: History of Present illness Narrative* Patient is here for follow-up due to management for recent evaluation for shortness of breath. The patient is known to have history advanced lung disease. She underwent stress test and echocardiogramboth appears to be reassuring. Patient denies any change in cardiac status or symptoms since last time I saw her. * Assessment * 1. Class III shortness of breath in patient with known history of tobacco use, COPD/emphysema. Recent cardiac testing including echocardiogram and stress test are reassuring * 2. History of tobacco use quit 3 years ago * 3. History of centrilobular emphysema with alpha antitrypsin deficiency * 4. Hypertension * 5. Intermittent lower extremity edema * 6. Borderline obesity * Recommendation * 1. I reviewed with her the results of her echocardiogram and stress test and reassured her * 2. I educated her about ischemic heart disease * 3. I review multiple pieces of information including her recent CT scan, pulmonary function test, lab work and remote echo * 4. We will see her back in 6 months and follow-up [facility] 250 DO Work Phone: Hospital course Narrative No data available for this section [facility] Discharge instructions No data available for this section [facility] No data available for this section [facility] Reason for referral (narrative)* Consultation (Routine) - Authorized Specialty Diagnoses / Procedures Referred By Joelle schwartz Referred To Contact Cardiology Diagnoses Essential hypertension Procedures Follow Up In Cardiology Benny Kang MD [address] [place] [address] 2, [address] [address] Benny Kang MD [address] [place] [address] 2, [place] [address] Referral ID Status Reason Start Date Expiration Date V isits Requested Visits Authorized [id number] Authorized 11/28/2023 11/27/2024 1 1 [facility] Work Phone: Summary Purpose Family History [...] Status:Active Advance Directives No Advanced Directives Records Found Advance Directive Response Recorded Date/ Time Advance Directives No September 20, 2017 9:55am Chief Complaint SVETLANA SILVA is being seen for results mpl and echo. Additional Source Comments INFORMATION SOURCE (unrecogn ized section and content) DATE CREATED AUTHOR 12/23/2022 [facility] DATE CREATED AUTHOR AUTHOR'S ORGANIZ ATION 03/31/2023 [facility] DATE CREATED AUTHOR AUTHOR'S ORGANIZ ATION 03/31/2023 [facility] DATE CREATED AUTHOR AUTHOR'S ORGANIZ ATION 04/13/2023 [facility] DATE CREATED AUTHOR AUTHOR'S ORGANIZ ATION 11/30/2023 [facility] DATE CREATED AUTHOR AUTHOR'S ORGANIZ ATION 01/02/2024 [facility] EPIC DATE CREATED AUTHOR AUTHOR'S ORGANIZ ATION 01/23/2024 [facility] DATE CREATED AUTHOR AUTHOR'S ORGANIZ ATION 01/25/2024 [facility] Care Teams (unrecognized sec tion and content) [facility]ser Relationship Specialty Start Date End Date Shaikh Allan MD PCP - General Internal Medicine 06/07/23 [facility]ser Relationship Specialty Start Date End Date Shaikh Allan MD [address] [place] [address] PCP - General Internal Medicine 09/24/23 Holistic Pulser Relationship Specialty Start Date End Date Shaikh Allan MD PCP - General 01/26/23 Team Status: Inactive Member Role Status Dates Lin Dalton MD Attending Provider Active Start : January 23, 2024 End: January 23, 2024 Reason for Visit (unrecogniz ed section and content) Reason Comments Follow-up Reason Comments Follow-up 6m Goals (unrecognized section and content) Goals may be documented in a n alternate section FOR RECORDS PERTAINING TO PATIENTS WHO ARE [...] BE BASED ON THE PRIMARY CLINICAL RECORDS. [employer] [facility]. provides no warranty or guarantee of the accuracy or completeness of information in this document.
[2024-01-25 22:01] VITALS: BP 165/65; PULSE 73; TEMP 36.8; O2SAT 96; BMI 24.6
--- NOTE | 2024-01-25 22:22 | ED.FEMALEGU1 ---
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 States after procedure catheter placed by Urology. Patient admits she has been very active. Presents tonight because she feels like the catheter may be coming out as she is leaking around it. Has some abdominal pain. No nausea or vomiting Related Data Home Medications ?Medication ?Instructions ?Recorded ?Confirmed amlodipine 5 mg tablet 5 mg PO QDAY 08/14/23 01/25/24 arformoterol 15 mcg/2 mL solution 15 mcg inhalation Q12H 08/14/23 01/25/24 for nebulization atorvastatin 40 mg tablet 40 mg PO BEDTIME 08/14/23 01/25/24 budesonide 0.5 mg/2 mL suspension 0.5 mg inhalation BID 08/14/23 01/25/24 for nebulization losartan 100 mg tablet 100 mg PO DAILY 08/14/23 01/25/24 meloxicam 7.5 mg tablet 7.5 mg PO DAILY 08/14/23 01/25/24 multivitamin 1 tab PO DAILY 08/14/23 01/25/24 pantoprazole 40 mg tablet,delayed 40 mg PO DAILY 08/14/23 01/25/24 release revefenacin 175 mcg/3 mL solution 175 mcg inhalation DAILY 08/14/23 01/25/24 for nebulization (Yupelri) escitalopram oxalate 10 mg tablet 20 mg PO DAILY 01/21/24 01/25/24 gabapentin 300 mg capsule 300 mg PO DAILY 01/21/24 01/25/24 guaifenesin 600 mg tablet, 1,200 mg PO Q12H 01/21/24 01/25/24 extended release 12 hr (Mucus Relief ER) prednisone 5 mg tablet 5 mg PO DAILY 01/21/24 01/25/24 psyllium husk 0.4 gram capsule 0.4 g PO DAILY 01/21/24 01/25/24 (Daily Fiber) vitamin E 268 mg (400 unit) capsule 180 mg PO DAILY 01/21/24 01/25/24 zinc 50 mg capsule 50 mg PO DAILY 01/21/24 01/25/24 Previous Rx's ?Medication ?Instructions ?Recorded metoprolol succinate 100 mg 100 mg PO DAILY #30 tabs 08/16/23 tablet,extended release 24 hr nitrofurantoin 100 mg PO BID start morning of 01/23/24 monohydrate/macrocrystals 100 mg fernandez removal #2 caps capsule (Macrobid) oxybutynin chloride 5 mg tablet 5 mg PO TID PRN bladder spasms #60 01/23/24 tabs Allergies Allergy/AdvReac Type Severity Reaction Status Date / Time codeine AdvReac Severe Nausea Verified 01/25/24 22:07 Review of Systems ROS Status of ROS 10 or more systems reviewed and unremarkable except as noted in history and below [facility] Medical History (Updated 01/25/24 @ 23:05 by Sean Potter MD) Hematuria ?R31.9 - Hematuria, unspecified (ICD-10) Rsoac-1-jhdyafgaczo 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 - Iyesv-2-jelseyosdru deficiency (ICD-10) COVID-19 ?U07.1 - COVID-19 (ICD-10) Bladder mass ?N32.89 - Other specified disorders of bladder (ICD-10) Anxiety and depression ?F41.9 - Anxiety disorder, unspecified (ICD-10) ?F32.A - Depression, unspecified (ICD-10) Restless legs ?G25.81 - Restless legs syndrome (ICD-10) Osteoporosis ?M81.0 - Age-related osteoporosis without current pathological fracture (ICD-10) Hyperlipidemia ?E78.5 - Hyperlipidemia, unspecified (ICD-10) HTN (hypertension) ?I10 - Essential (primary) hypertension (ICD-10) COPD (chronic obstructive pulmonary disease) ?J44.9 - Chronic obstructive pulmonary disease, unspecified (ICD-10) 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 - Disease of appendix, unspecified (ICD-10) Normal colonoscopy Hernia of abdominal wall ?K43.9 - Ventral hernia without obstruction or gangrene (ICD-10) Cataract ?H26.9 - Unspecified cataract (ICD-10) Surgical History (Updated 01/21/24 @ 13:45 by Usha Ramirez RN) Hx of appendectomy ?Z90.49 - Acquired absence of other specified parts of digestive tract (ICD-10) H/O hernia repair ?Z98.890 - Other specified postprocedural states (ICD-10) ?Z87.19 - Personal history of other diseases of the digestive system (ICD-10) History of partial hysterectomy ?Z90.711 - Acquired absence of uterus with remaining cervical stump (ICD-10) Family History (Updated 01/21/24 @ 13:42 by Usha Ramirez, RN) Other Family history of COPD (chronic obstructive pulmonary disease) Family history of cancer Social History (Updated 01/21/24 @ 13:41 by Usha Ramirez, RN) Within the past year, how often did you have a drink containing alcohol: never Score interpretation: A score less than 3 is consistent with normal alcohol consumption. Smoking status: Former smoker Second hand tobacco smoke exposure: Yes Non-prescribed substance use: denies use Previous occupational history: retired Highest level of school completed/degree received: 9th grade Exam Constitutional Vital Signs, click to edit/add: Last Vital Signs Temp 98.3 F 01/25/24 22:01 Pulse 73 01/25/24 22:01 Resp 18 01/25/24 22:01 BP 165/65 H 01/25/24 22:01 Pulse Ox 96 01/25/24 22:01 O2 Del Method Room Air 01/25/24 22:01 Common normals: no apparent distress, average body habitus, oriented x3, no limitations, healthy appearing, alert and well nourished [facility] Common normals: normocephalic and head/scalp atraumatic Eye Common normals: EOMs intact bilaterally and conjunctivae normal Respiratory Common normals: normal respiratory effort, no retractions, no use of accessory muscles and clear to auscultation bilaterally Cardio Common normals: regular rate, regular rhythm, S1 normal heart sound and S2 normal heart sound GI Common normals: Normal to inspection, nondistended, normoactive bowel sounds present, soft to palpation and non-tender Extremity Common normals: normal to inspection Neuro Common normals: oriented x3, CN's II-XII intact bilaterally and moves all extremities Psych Appearance: grossly normal Course Vital Signs Vital signs: Vital Signs Temperature 98.3 F 01/25/24 22:01 Pulse Rate 73 01/25/24 22:01 Respiratory Rate 18 01/25/24 22:01 Blood Pressure 165/65 H 01/25/24 22:01 Pulse Oximetry 96 01/25/24 22:01 Oxygen Delivery Method Room Air 01/25/24 22:01 Temperature 98.3 F 01/25/24 22:01 Pulse Rate 73 01/25/24 22:01 Respiratory Rate 18 01/25/24 22:01 Blood Pressure 165/65 H 01/25/24 22:01 Pulse Oximetry 96 01/25/24 22:01 Oxygen Delivery Method Room Air 01/25/24 22:01 MDM - Female Genitourinary MDM Narrative Medical decision making narrative: patient presents concerned her fernandez catheter is not functioning properly. states it was leaking. Catheter irrigated by nursing. Balloon deflated and catheter advanced. Bladder scan with empty bladder and urine drained normally. Discharged home Discharge Plan Discharge Stand Alone Forms: Portal Instructions Chief Complaint: Urogenital-Female Clinical Impression: Fernandez catheter problem Patient Disposition: Home, Self-Care Prescriptions / Home Meds: No Action atorvastatin 40 mg tablet 40 mg PO BEDTIME amlodipine 5 mg tablet 5 mg PO QDAY losartan 100 mg tablet 100 mg PO DAILY meloxicam 7.5 mg tablet 7.5 mg PO DAILY pantoprazole 40 mg tablet,delayed release (DR/EC) 40 mg PO DAILY multivitamin Tablet 1 tab PO DAILY Yupelri 175 mcg/3 mL solution for nebulization 175 mcg inhalation DAILY arformoterol 15 mcg/2 mL solution for nebulization 15 mcg inhalation Q12H budesonide 0.5 mg/2 mL suspension for nebulization 0.5 mg inhalation BID metoprolol succinate 100 mg tablet extended release 24 hr 100 mg PO DAILY Qty: 30 0RF escitalopram oxalate 10 mg tablet 20 mg PO DAILY gabapentin 300 mg capsule 300 mg PO DAILY prednisone 5 mg tablet 5 mg PO DAILY guaifenesin [Mucus Relief ER] 600 mg tablet extended release 12hr 1,200 mg PO Q12H zinc 50 mg capsule 50 mg PO DAILY psyllium husk [Daily Fiber] 0.4 gram capsule 0.4 g PO DAILY vitamin E 268 mg (400 unit) capsule 180 mg PO DAILY oxybutynin chloride 5 mg tablet 5 mg PO TID PRN (Reason: bladder spasms) Qty: 60 1RF nitrofurantoin monohyd/m-cryst [Macrobid] 100 mg capsule 100 mg PO BID Qty: 2 0RF Rx Instructions: must administer with a meal/food Print Language: Kyrgyz Instructions: Fernandez Catheter Placement and Care (ED) Additional Instructions: follow up with your urology next week Referrals: Shaikh Allan MD [Primary Care Provider] - 1 week
--- NOTE | 2024-01-25 22:24 | PC.NURSE ---
pt with fley catheter that was placed day after surgery. pt states has abdominal pain with urine leakage around fernandez catheter.
[2024-01-25] MEDS: SODIUM CHLORIDE 0.9% IRRIG SOLUTION 1,000 ML BOTTLE 1000 ML IRR (22:58)
== END 2024-01-25 23:22 | disposition home or self-care (01) ==
PROVIDERS: Emergency Provider Internal Medicine; PCP Internal Medicine
DX: T83.031A Leakage of indwelling urethral catheter, initial encounter (principal); Z98.890 Other specified postprocedural states
CPT/HCPCS: 99284

== ENCOUNTER 2024-01-30 13:40 | Emergency (ER) | payer MEDICARE, SELFPAY ==
[2024-01-30 13:47] VITALS: BP 114/63; PULSE 68; TEMP 37; O2SAT 95; BMI 24.6
--- NOTE | 2024-01-30 13:59 | CT_ITS ---
[address] [address] Patient Name: ANGELITA ADRIAN MRN: [id number] date: 1955 Sex: F Assigned Patient Location: ER Current Patient Location: Accession/Order Number: [id number] Exam Date: 01/30/2024 14:52 Report Date: 01/30/2024 15:35 At the request of: DEVIKA VICENTE Procedure: CT abdomen pelvis w con EXAMINATION: CT abdomen pelvis w con HISTORY: Diffuse abdominal pain COMPARISON: No relevant comparison available. TECHNIQUE: Axial, Coronal, and Sagittal images were obtained without and/or with IV contrast as indicated by examination type. Dose reduction techniques were achieved by using automated exposure control and/or adjustment of mA and/or kV according to patient size and/or use of iterative reconstruction technique. FINDINGS: LUNG BASES: No visible pulmonary or pleural disease. LIVER: No enlargement, atrophy, suspicious density, or significant focal lesion. BILIARY: No dilatation or calcification. PANCREAS: No lesion, fluid collection, or abnormal duct dilatation. SPLEEN: No enlargement or focal lesion. ADRENALS: No mass or enlargement. KIDNEYS: No mass, obstruction, or calcification. BOWEL/MESENTERY: Diverticulosis of sigmoid colon without acute inflammatory changes. No visible mass, obstruction, or bowel wall thickening. AORTA/VASCULAR: Marked atherosclerotic disease of distal aorta and common iliac arteries; no occlusion. No aneurysm. RETROPERITONEUM: No mass or adenopathy. LYMPH NODES: No adenopathy. URINARY BLADDER: [Circumferential wall thickening of urinary bladder. Browne catheter in place. PELVIC ORGANS: Hysterectomy. ABDOMINAL WALL: Tiny fat filled umbilical hernia without strangulation. BONES: Scoliosis and degenerative disc disease of lumbar spine. OTHER: Negative. CT/CT abdomen pelvis w con IMPRESSION: 1. No bowel obstruction, ileus, or appreciable inflammatory changes. Distal colonic diverticulosis, but no appreciable diverticulitis. 2. Slight wall thickening of urinary bladder. Cystitis? 3. Marked atherosclerotic disease of aorta and branches, but no aneurysm or occlusion. Electronically authenticated by: THERESA LUCIA Date: 01/30/2024 15:35
--- NOTE | 2024-01-30 14:01 | ED.GENADUL1 ---
HPI HPI - General Adult General Chief complaint: Abdominal Pain Stated complaint: ABDOMINAL PAIN Time Seen by Provider: 01/30/24 13:49 Source: patient Mode of arrival: walk-in Limitations: no limitations History of Present Illness HPI narrative: Patient is a 68-year-old female who presents to the emergency department for 2-day history of diffuse abdominal pain. 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 She had a procedure done on 01/[address] Dalton for Urology in which the bladder tumor was resected and a Fernandez catheter was placed. She was seen in this emergency department 1 week ago for a blockage in the Fernandez catheter which resolved. She has had normal drainage from the Fernandez catheter since that time, no continued hematuria or clots. She states for the last 2 days she has had diffuse abdominal pain associated with mild nausea. She has had no fevers, vomiting or diarrhea and states she is having normal bowel movements. No medications taken prior to arrival Related Data Home Medications ?Medication ?Instructions ?Recorded ?Confirmed amlodipine 5 mg tablet 5 mg PO QDAY 08/14/23 01/25/24 arformoterol 15 mcg/2 mL solution 15 mcg inhalation Q12H 08/14/23 01/25/24 for nebulization atorvastatin 40 mg tablet 40 mg PO BEDTIME 08/14/23 01/25/24 budesonide 0.5 mg/2 mL suspension 0.5 mg inhalation BID 08/14/23 01/25/24 for nebulization losartan 100 mg tablet 100 mg PO DAILY 08/14/23 01/25/24 meloxicam 7.5 mg tablet 7.5 mg PO DAILY 08/14/23 01/25/24 multivitamin 1 tab PO DAILY 08/14/23 01/25/24 pantoprazole 40 mg tablet,delayed 40 mg PO DAILY 08/14/23 01/25/24 release revefenacin 175 mcg/3 mL solution 175 mcg inhalation DAILY 08/14/23 01/25/24 for nebulization (Micki) escitalopram oxalate 10 mg tablet 20 mg PO DAILY 01/21/24 01/25/24 gabapentin 300 mg capsule 300 mg PO DAILY 01/21/24 01/25/24 guaifenesin 600 mg tablet, 1,200 mg PO Q12H 01/21/24 01/25/24 extended release 12 hr (Mucus Relief ER) prednisone 5 mg tablet 5 mg PO DAILY 01/21/24 01/25/24 psyllium husk 0.4 gram capsule 0.4 g PO DAILY 01/21/24 01/25/24 (Daily Fiber) vitamin E 268 mg (400 unit) capsule 180 mg PO DAILY 01/21/24 01/25/24 zinc 50 mg capsule 50 mg PO DAILY 01/21/24 01/25/24 Previous Rx's ?Medication ?Instructions ?Recorded metoprolol succinate 100 mg 100 mg PO DAILY #30 tabs 08/16/23 tablet,extended release 24 hr nitrofurantoin 100 mg PO BID start morning of 01/23/24 monohydrate/macrocrystals 100 mg fernandez removal #2 caps capsule (Macrobid) oxybutynin chloride 5 mg tablet 5 mg PO TID PRN bladder spasms #60 01/23/24 tabs ciprofloxacin HCl 500 mg tablet 500 mg PO BID 7 days #14 tabs 01/30/24 (Cipro) ondansetron 4 mg disintegrating 4 mg PO Q6H PRN nausea and 01/30/24 tablet vomiting #12 tabs oxycodone-acetaminophen 5 mg-325 1 tab PO Q6H PRN pain 3 days #12 01/30/24 mg tablet (Percocet) tabs Allergies Allergy/AdvReac Type Severity Reaction Status Date / Time codeine AdvReac Severe Nausea Verified 01/25/24 22:07 Opioid HPI Opioid Management Most Recent Opioid Data: Last Pain Scale 8 01/30/24 13:50 Last Pain Assessment 01/23/24 16:47 Review of Systems ROS Constitutional Denies: fever or chills Ears, nose, mouth, and throat Denies: throat pain or nasal congestion Respiratory Denies: shortness of breath Gastrointestinal Reports: abdominal pain and nausea; Denies: vomiting or diarrhea Genitourinary Denies: painful urination Musculoskeletal Denies: back pain Integumentary/Breast Denies: rash Neurological Denies: headache Hematologic/Lymphatic Denies: easy bruising or easy bleeding [facility] Medical History (Updated 01/30/24 @ 15:43 by NOAH Echevarria) Hematuria ?R31.9 - Hematuria, unspecified (ICD-10) 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-8-oijizbxubsf deficiency (ICD-10) COVID-19 ?U07.1 - COVID-19 (ICD-10) Bladder mass ?N32.89 - Other specified disorders of bladder (ICD-10) Anxiety and depression ?F41.9 - Anxiety disorder, unspecified (ICD-10) ?F32.A - Depression, unspecified (ICD-10) Restless legs ?G25.81 - Restless legs syndrome (ICD-10) Osteoporosis ?M81.0 - Age-related osteoporosis without current pathological fracture (ICD-10) Hyperlipidemia ?E78.5 - Hyperlipidemia, unspecified (ICD-10) HTN (hypertension) ?I10 - Essential (primary) hypertension (ICD-10) COPD (chronic obstructive pulmonary disease) ?J44.9 - Chronic obstructive pulmonary disease, unspecified (ICD-10) 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 - Disease of appendix, unspecified (ICD-10) Normal colonoscopy Hernia of abdominal wall ?K43.9 - Ventral hernia without obstruction or gangrene (ICD-10) Cataract ?H26.9 - Unspecified cataract (ICD-10) Surgical History (Updated 01/21/24 @ 13:45 by Usha Ramirez RN) Hx of appendectomy ?Z90.49 - Acquired absence of other specified parts of digestive tract (ICD-10) H/O hernia repair ?Z98.890 - Other specified postprocedural states (ICD-10) ?Z87.19 - Personal history of other diseases of the digestive system (ICD-10) History of partial hysterectomy ?Z90.711 - Acquired absence of uterus with remaining cervical stump (ICD-10) Family History (Updated 01/21/24 @ 13:42 by Usha Ramirez RN) Other Family history of COPD (chronic obstructive pulmonary disease) Family history of cancer Social History Within the past year, how often did you have a drink containing alcohol: never Score interpretation: A score less than 3 is consistent with normal alcohol consumption. Smoking status: Former smoker Second hand tobacco smoke exposure: Yes Non-prescribed substance use: denies use Previous occupational history: retired Highest level of school completed/degree received: 9th grade Exam Narrative Exam Narrative: Gen.: Awake, alert, in no distress Head: Normocephalic, atraumatic ENT: Moist mucous membranes Respiratory: No respiratory distress Gastrointestinal: Abdomen is soft, nondistended and Diffusely tender to palpation with no guarding or rebound Extremities: Moves extremities equally, no injuries noted Psych: Normal mood and affect Neuro: No focal neuro deficit Skin: Warm, dry, intact Constitutional Vital Signs, click to edit/add: Last Vital Signs Temp 98.6 F 01/30/24 13:47 Pulse 61 01/30/24 15:38 Resp 18 01/30/24 15:38 BP 114/60 01/30/24 15:38 Pulse Ox 91 L 01/30/24 15:38 O2 Del Method Room Air 01/30/24 15:38 Course Vital Signs Vital signs: Vital Signs Temperature 98.6 F 01/30/24 13:47 Pulse Rate 68 01/30/24 13:47 Respiratory Rate 16 01/30/24 13:47 Blood Pressure 114/63 01/30/24 13:47 Pulse Oximetry 95 01/30/24 13:47 Oxygen Delivery Method Room Air 01/30/24 13:47 Temperature 98.6 F 01/30/24 13:47 Pulse Rate 61 01/30/24 15:38 Respiratory Rate 18 01/30/24 15:38 Blood Pressure 114/60 01/30/24 15:38 Pulse Oximetry 91 L 01/30/24 15:38 Oxygen Delivery Method Room Air 01/30/24 15:38 Medical Decision Making MDM Narrative Medical decision making narrative: Patient treated with IV fluids, Dilaudid, Zofran. She is resting comfortably on reevaluation. Labs are stable, she does have a urinary tract infection. Catheter is draining appropriately. CT shows cystitis with no other acute abnormalities. Patient placed on Cipro, Zofran, Percocet for home. She has an appointment with urology in 2 days. She questions if the catheter should be removed today, it was suggested to the patient and her family that she keep the catheter in place until she sees urology on Sunday, she is in agreement with this plan. Return to the ER if symptoms change or worsen SUPERVISED APC VISIT, PHYSICIAN ATTESTATION: Based on the medical record the care appears appropriate. ? Medical Records Medical records reviewed: Yes I reviewed the patient's medical records Lab Data Lab results reviewed: Yes I reviewed the patient's lab results Labs: Lab Results 01/30/24 01/30/24 Range/Units 14:17 14:46 WBC 8.7 (4.0-11.0) 10^3/uL RBC 3.74 L (4.20-5.40) 10^6/uL Hgb 10.5 L (12.0-16.0) g/dL Hct 33.6 L (36.0-48.0) % MCV 89.8 (81.0-99.0) fL MCH 28.1 (26.7-34.0) pg MCHC 31.3 (29.9-35.2) g/dL RDW 13.9 (11.0-15.0) % Plt Count 295 (150-450) 10^3/uL MPV 9.6 (9.5-13.5) fL Neut % (Auto) 76.2 H (43.0-75.0) % Lymph % (Auto) 10.1 L (20.5-60.0) % [place] % (Auto) 7.4 (1.7-12.0) % Eos % (Auto) 5.1 (0.9-7.0) % Baso % (Auto) 0.7 (0.2-2.0) % Neut # (Auto) 6.6 H (1.4-6.5) 10^3/uL Lymph # (Auto) 0.9 L (1.2-3.8) 10^3/uL [place] # (Auto) 0.6 (0.3-0.8) 10^3/uL Eos # (Auto) 0.4 (0.0-0.7) 10^3/uL Baso # (Auto) 0.1 (0.0-0.1) 10^3/uL Abs Immat Gran (auto) 0.04 H (0.00-0.03) 10^3/uL Imm/Tot Granulo (auto) 0.5 (0.0-0.5) % Sodium 134 L (136-145) mmol/L Potassium 4.2 (3.5-5.1) mmol/L Chloride 100 (98-107) mmol/L Carbon Dioxide 26.8 (21.0-32.0) mmol/L Anion Gap 11.4 BUN 13.0 (7.0-18.0) mg/dL Creatinine 0.85 (0.55-1.02) mg/dL Est GFR ( Amer) >60 (>=60) Est GFR (Non-Af Amer) >60 (>=60) BUN/Creatinine Ratio 15.3 Glucose 113 H (74-106) mg/dL Lactate 1.4 (0.4-2.0) mmol/L Calcium 8.8 (8.5-10.1) mg/dL Total Bilirubin 0.7 (0.2-1.0) mg/dL AST 14 L (15-37) U/L ALT 24 (14-59) U/L Alkaline Phosphatase 66 (46-116) U/L Total Protein 6.0 L (6.4-8.2) g/dL Albumin 3.0 L (3.4-5.0) g/dL Globulin 3.0 g/dL Albumin/Globulin Ratio 1.0 Lipase 21.0 (16.0-77.0) U/L Urine Color Lt. yellow (YELLOW) Urine Clarity Clear (CLEAR) Urine pH 6.5 (5.0-9.0) Ur Specific [place] 1.015 (1.005-1.025) Urine Protein 100 A (NEG/TRACE) mg/dL Urine Glucose (UA) Negative (NEGATIVE) mg/dL Urine Ketones Negative (NEGATIVE) mg/dL Urine Occult Blood Large A (NEGATIVE) Urine Nitrite Negative (NEGATIVE) Urine Bilirubin Negative (NEGATIVE) Urine Urobilinogen 0.2 (0.2-1.0) EU/dL Ur Leukocyte Esterase Large A (NEGATIVE) Urine RBC 10-20 A (0-2) #/HPF Urine WBC 50-75 A (NONE SEEN) #/HPF Ur Squamous Epith Cells Few A (NONE/RARE) #/LPF Urine Crystals None seen (None Seen) #/HPF Urine Bacteria Trace A (NONE SEEN) #/HPF Urine Casts None seen (NONE SEEN) #/LPF Urine Mucus None seen (NONE SEEN) Ur Culture Indicated? Yes Imaging Data CT scan - abdomen: Attestation: I have reviewed the pertinent imaging results. Radiologist's impression: ITS Impressions Abdomen/Pelvis CT 01/30/24 13:59 IMPRESSION: 1. No bowel obstruction, ileus, or appreciable inflammatory changes. Distal colonic diverticulosis, but no appreciable diverticulitis. 2. Slight wall thickening of urinary bladder. Cystitis? 3. Marked atherosclerotic disease of aorta and branches, but no aneurysm or occlusion. Electronically authenticated by: THERESA LUCIA Date: 01/30/2024 15:35 Discharge Plan Discharge Stand Alone Forms: Portal Instructions Chief Complaint: Abdominal Pain Clinical Impression: Cystitis, Abdominal pain, Acute UTI Patient Disposition: Home, Self-Care Time of Disposition Decision: 15:43 Condition: Good Prescriptions / Home Meds: New ciprofloxacin HCl [Cipro] 500 mg tablet 500 mg PO BID 7 Days Qty: 14 0RF oxycodone-acetaminophen [Percocet] 5-325 mg tablet 1 tab PO Q6H PRN (Reason: pain) 3 Days Qty: 12 0RF Rx Instructions: DX R10.9 ondansetron 4 mg tablet,disintegrating 4 mg PO Q6H PRN (Reason: nausea and vomiting) Qty: 12 0RF No Action atorvastatin 40 mg tablet 40 mg PO BEDTIME amlodipine 5 mg tablet 5 mg PO QDAY losartan 100 mg tablet 100 mg PO DAILY meloxicam 7.5 mg tablet 7.5 mg PO DAILY pantoprazole 40 mg tablet,delayed release (DR/EC) 40 mg PO DAILY multivitamin Tablet 1 tab PO DAILY Yupelri 175 mcg/3 mL solution for nebulization 175 mcg inhalation DAILY arformoterol 15 mcg/2 mL solution for nebulization 15 mcg inhalation Q12H budesonide 0.5 mg/2 mL suspension for nebulization 0.5 mg inhalation BID metoprolol succinate 100 mg tablet extended release 24 hr 100 mg PO DAILY Qty: 30 0RF escitalopram oxalate 10 mg tablet 20 mg PO DAILY gabapentin 300 mg capsule 300 mg PO DAILY prednisone 5 mg tablet 5 mg PO DAILY guaifenesin [Mucus Relief ER] 600 mg tablet extended release 12hr 1,200 mg PO Q12H zinc 50 mg capsule 50 mg PO DAILY psyllium husk [Daily Fiber] 0.4 gram capsule 0.4 g PO DAILY vitamin E 268 mg (400 unit) capsule 180 mg PO DAILY oxybutynin chloride 5 mg tablet 5 mg PO TID PRN (Reason: bladder spasms) Qty: 60 1RF nitrofurantoin monohyd/m-cryst [Macrobid] 100 mg capsule 100 mg PO BID Qty: 2 0RF Rx Instructions: must administer with a meal/food Print Language: Japanese Instructions: Catheter-associated Urinary Tract Infection (ED) Referrals: Lin Dalton MD [Physician] - 02/01/24 Shaikh Allan MD [Primary Care Provider] - 1 week
[2024-01-30] MEDS: HYDROMORPHONE HCL 0.5 MG/0.5 ML SYRINGE IV (14:12)
[2024-01-30] MEDS: ONDANSETRON PF 4 MG/2 ML VIAL IV (14:12)
[2024-01-30] MEDS: 0.9 % SODIUM CHLORIDE 1,000 ML 999 ML IV (14:12)
[2024-01-30 14:32] LABS: Basophils Absolute Auto 0.1 10^3/uL (0.0-0.1); Basophils Percent Auto 0.7 % (0.2-2.0); Eosinophils Absolute Auto 0.4 10^3/uL (0.0-0.7); Eosinophils Percent Auto 5.1 % (0.9-7.0); Hematocrit 33.6 % (36.0-48.0); Hemoglobin 10.5 g/dL (12.0-16.0); Immature Granulocytes Abs Auto 0.04 10^3/uL (0.00-0.03); Immature Granulocytes Pct Auto 0.5 % (0.0-0.5); Lymphocytes Absolute Auto 0.9 10^3/uL (1.2-3.8); Lymphocytes Percent Auto 10.1 % (20.5-60.0); Mean Corpuscular HGB Conc 31.3 g/dL (29.9-35.2); Mean Corpuscular Hemoglobin 28.1 pg (26.7-34.0); Mean Corpuscular Volume 89.8 fL (81.0-99.0); Mean Platelet Volume 9.6 fL (9.5-13.5); Monocytes Absolute Auto 0.6 10^3/uL (0.3-0.8); Monocytes Percent Auto 7.4 % (1.7-12.0); Neutrophils Absolute Auto 6.6 10^3/uL (1.4-6.5); Neutrophils Percent Auto 76.2 % (43.0-75.0); Platelet Count 295 10^3/uL (150-450); Red Blood Count 3.74 10^6/uL (4.20-5.40); Red Cell Distribution Width 13.9 % (11.0-15.0); White Blood Count 8.7 10^3/uL (4.0-11.0)
[2024-01-30 14:52] LABS: Bilirubin Urine NEGATIVE (NEGATIVE); Blood Urine LARGE (NEGATIVE); Clarity Urine CLEAR (CLEAR); Color Urine LT. YELLOW (YELLOW); Glucose Urine UA NEGATIVE (NEGATIVE); Ketones Urine NEGATIVE (NEGATIVE); Leukocyte Esterase Urine LARGE (NEGATIVE); Nitrite Urine NEGATIVE (NEGATIVE); Protein Urine 100 mg/dL (NEG/TRACE); Specific Gravity Urine 1.015 (1.005-1.025); Urobilinogen Urine 0.2 EU/dL (0.2-1.0); pH Urine 6.5 (5.0-9.0)
[2024-01-30 14:53] LABS: Urine Microscopic Indicated YES
[2024-01-30 14:55] LABS: Lactate/Lactic Acid 1.4 mmol/L (0.4-2.0)
[2024-01-30 14:59] LABS: WBC Urine 50-75 #/HPF (NONE SEEN)
[2024-01-30 15:00] LABS: Bacteria Urine TRACE #/HPF (NONE SEEN); Cast Seen? NONE SEEN #/LPF (NONE SEEN); Crystals Seen? None Seen #/HPF (None Seen); Mucus Urine NONE SEEN (NONE SEEN); Squamous Epithelial Cell Urine FEW #/LPF (NONE/RARE); Urine Culture Indicated YES
[2024-01-30 15:02] LABS: Alanine Aminotransferase 24 U/L (14-59); Alkaline Phosphatase 66 U/L (46-116); Anion Gap 11.4; Aspartate Amino Transferase 14 U/L (15-37); BUN Creatinine Ratio 15.3; Bilirubin Total 0.7 mg/dL (0.2-1.0); Calcium 8.8 mg/dL (8.5-10.1); Carbon Dioxide 26.8 mmol/L (21.0-32.0); Chloride 100 mmol/L (98-107); Estimated GFR (African America >60 (>=60); Estimated GFR (Non-African Ame >60 (>=60); Glucose 113 mg/dL (74-106); Potassium 4.2 mmol/L (3.5-5.1); Sodium 134 mmol/L (136-145)
[2024-01-30 15:38] VITALS: BP 114/60; PULSE 61; O2SAT 91
[2024-01-30 15:54] VITALS: BP 136/88; PULSE 61; O2SAT 92
== END 2024-01-30 15:56 | disposition home or self-care (01) ==
PROVIDERS: Physician Assistant; Emergency Provider Emergency Medicine; PCP Internal Medicine
DX: N30.90 Cystitis, unspecified without hematuria (principal); R10.9 Unspecified abdominal pain; Z87.891 Personal history of nicotine dependence
CPT/HCPCS: 36415; 74177; 80053; 81001; 83605; 83690; 85025; 87086; 87150; 87186; 96374; 96375; 99285; J1170; J2405; Q9967

== ENCOUNTER 2024-02-28 09:01 | Outpatient (OUT) | payer MEDICARE, SELFPAY ==
--- NOTE | 2024-02-28 09:00 | RT_ITS ---
[facility] Test Date: 2024-02-28 Pat Name: ANGELITA ADRIAN Department: Room: - Gender: Female Slip Tender: Latha Rojas RRT : 1955 Requested By: Mihir aPtel Order Number: [id number] Reading MD: iMhir Patel Interpretive Statements Pulmonary function testing was completed according to ATS criteria. Findings were considered accurate and reproducible. Both pre- and post-bronchodilator values utilized for spirometry. Spirometry (based on pre-bronchodilator values): -FEV1/FVC: Reduced @ 60% -FEV1: Moderately reduced @ 59% -FVC: Reduced @ 74% -VUU19-34%: Reduced @ 31% -There is no significant bronchodilator response. Lung volumes by plethysmography (based on pre-bronchodilator values): -RV: Increased @ 148% -TLC: Increased @ 131% Diffusion capacity: -DLCO: Mild reduction @ 73% when corrected for Hb 12.2g/dL Flow-volume loop: -Moderate obstructive pattern Impressions: -Spirometry suggests moderate obstruction. There is no bronchodilator response. An elevated RV and TLC suggest air trapping and hyperinflation respectively. There is a mildly reduced diffusion capacity. Overall study is compatible with COPD/emphysema. Clinical correlation required. Electronically Signed On 03-04-2024 16:59:38 EDT by Mihir Patel
--- OUTSIDE RECORDS SUMMARY | 2024-02-28 09:11 | XMS_ITS | CCD ---
Author Organization [facility] Care Team Providers Care Software Security Consultant Name Role Phone FAWWAD, KHAN H Admitting [...] Consulting Unavailable Fawwad, Khan Unavailable Unavailable Unavailable [facility], Dr. Álvaro Fritz Referring Unavailab le Traboulssi, Dr. Velasquez Attending Unavaila ble Traboulangeles, Dr. Velasquez Referring Unavaila ble Traboulssi, Dr. Velasquez Attending Unavaila ble Traboulsskeith, Dr. Velasquez Referring Unavaila ble Traboulssi, Dr. Velasquez Attending Unavaila ble Jorge Luis, Dr. Velasquez Attending Unavaila raul Allan MD, [facility] Primary Care Provider Shaik Allan MDh Primary Care Provider Shaik Allan MDh Primary Care Provider BENNY KANG Attending Unavailable RADHA ALLANIKH Primary Care Unavailable NONE, XXXX Primary Care Physician UnavailMD Lin Obando Attending Provider [phone] Lin Dalton Attending Unavailable Lin Dalton Admitting Unavailable FAWWAD, KHAN Attending Unavailable FAWWAD, KHAN Attending Unavailable FAWKIYAD, KHAN Attending Unavailable FAWWAD, KHAN Attending Unavailable FAWKIYAD, Attending Unavailable JERRELL, Attending Unavailable Lin Dalton Admitting Unavailable Lin Dalton. Referring Unavailable Lin Dalton Attending Unavailable Lin Dalton Attending Unavailable Lin Dalton. Admitting Unavailable Lin Dalton Attending Unavailable Lin Dalton Attending Unavailable Lin Dalton Attending Unavailable Lin Dalton Referring Unavailable Lin Dalton Attending Unavailable Allergies Allergy Classification Reported Allergen(s) Allergy Type Date of Onset Reaction(s) Facility Opioid Agonists (3 sources) Codeine; 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: [codeine] Drug Allergy Nausea (finding) [facility] (3 sources) Codeine; 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: [CODEINE] Drug Allergy 7 [facility] Repository (9 sources) Codeine; 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: [Codeine Derivatives] Drug Allergy 9 Nausea Only, GI intolerance, Other, Nausea/vomiting , Nausea (finding) [facility] (1 source) Codeine Drug Allergy 8 [facility] Repository Medications Current Medications Medication Drug Class(es) Dates Sig (Normalized) Sig (Original) acetaminophen 500 mg oral tablet (1 source) Start: 09-25-2017 take 500 mg by mouth every twelve hours Acetaminophen Active 500 MG PO Q12H September 25, 2017 1:00am acetaminophen 325 mg / oxyCODONE hydrochloride 5 mg oral tablet (1 source) Opioid Agonist Start: 02-01-2024 acetaminophen-oxyco done 325 mg-5 mg Tab Refill(s) 0 Start Date: 02/01/24 Status: Ordered [id number] 200 actuat albuterol 0.09 mg/actuat metered dose [...] takes qfriday amLODIPine 5 mg oral tablet (13 sources) Dihydropyridine Calcium Channel Frederick Start: 09-25-2017 amLODIPine 5 mg Tab 5 mg = 1 tab(s), Daily Start Date: 01/17/24 Status: Ordered arformoterol (11 sources) beta2-Adrenergic Agonist Start: 01-17-2024 arfor moterol [...] DO Active atorvastatin 40 mg oral tablet (13 sources) HMG-CoA Reductase Inhibitor Start: 09-25-2017 atorvastatin 40 mg Tab 40 mg = 1 tab(s), Once a day (at bedtime) Start Date: 01/17/24 Status: Ordered biotin 5 mg oral capsule (3 sources) take 1 capsule by mouth once daily biotin (Biotin 5000) 5 MG capsule Take 5 mg by mouth 1 (one) time each day at the same time 0 Active Budesonide (12 sources) Corticosteroid Start: 01-17-2024 budesonide Start Date: [...] 2017 1:00am Centrum Women 50 Plus Multigummies (4 sources) Start: 01-17-2024 Centrum Women 50 Plus Multigummies Start Date: 01/17/24 Status: Ordered cholecalciferol 0.05 mg oral tablet (4 sources) Vitamin D Start: 09-25-2017 take 1 tablet by mouth once daily Cholecalciferol (Vitamin D3) (Vitamin D3) 2,000 unit Tablet Active 1 TAB PO Daily September 25, 2017 1:00am ciprofloxacin 500 mg oral tablet (1 source) Quinolone Antimicrobial Start: 02-01-2024 ciprofloxacin 500 mg Tab Refills(s) 0 Start Date: 02/01/24 Status: Ordered Equate Clear-Lax (1 source) Start: 09-25-2017 take 8 [oz_av] by mouth once daily at bedtime Equate Clear-Lax Active 1 CAP PO Daily at bedtime September 25, 2017 1:00am in 8 oz water escitalopram 20 mg oral tablet (9 sources) Serotonin Reuptake Inhibitor Start: 01-17-2024 escitalopram [...] 0 Active gabapentin 300 mg oral capsule (7 sources) Anti-epileptic Agent Start: gabapentin 300 mg [...] 1 puff(s) by inhalation twice daily Ipratropium [place] (Atrovent Hfa) 17 mcg/actuation HFA aerosol inhaler Active 2 PUFF INHALATION Twice daily September 25, 2017 1:00am ipratropium (Atr ovent HFA) 17 MCG/ACT inhaler Inhale 2 puffs in the morning and 2 puffs at noon and 2 puffs in the evening and 2 puffs before bedtime. 0 Active losartan potassium 100 mg oral tablet (13 sources) Angiotensin 2 Receptor Frederick Start: 01-17-2024 [...] DO Active meloxicam 7.5 mg oral tablet (13 sources) Nonsteroidal Anti-inflammatory Drug Start: 01-17-2024 meloxicam [...] succinate 100 mg extended release oral tablet (14 sources) beta-Adrenergic Frederick Start: 01-17-2024 take 1 [...] TAB PO Daily September 25, 2017 1:00am ondansetron 4 mg disintegrating oral tablet (1 source) Serotonin-3 Receptor Antagonist Start: 02-01-2024 ondansetron 4 mg Dis Tab Refills(s) 0 Start Date: 02/01/24 Status: Ordered oxybutynin chloride 5 mg oral tablet (1 source) Cholinergic Muscarinic Antagonist Start: 02-01-2024 oxybutynin 5 mg Tab Refills(s) 0 Start Date: 02/01/24 Status: Ordered pantoprazole 40 mg delayed release oral tablet (12 sources) Proton Pump Inhibitor Start: 01-17-2024 Pantoprazole [...] Active pramipexole dihydrochloride 0.75 mg oral tablet (12 sources) Nonergot Dopamine Agonist Start: 01-17-2024 take [...] Refills: 0 Ordered: 26-Jan-2023 DO Active predniSONE (4 sources) Start: 01-17-2024 predniSONE 5 m g Tab 5 mg = 1 tab(s), Daily Start Date: 01/17/24 Status: Ordered Yupelri (12 sources) Start: 01-17-2024 take 1 ug by [...] Active traZODone hydrochloride 50 mg oral tablet (4 sources) Serotonin Reuptake Inhibitor Start: 01-17-2024 traZODONE 50 mg Tab 50 mg = 1 tab(s), Once a day (at bedtime) Start Date: 01/17/24 Status: Ordered vitamin b12 1 mg extended release oral tablet (3 sources) Vitamin B12 Cyanocobalamin ( Vitamin B12) 1000 MCG tablet controlled-release Take 1,000 mg by mouth 1 (one) time each day at the same time 0 Active Vitamin E (4 sources) Start: 01-17-2024 vitamin E Oral Start Date: 01/17/24 Status: Ordered Zinc (4 sources) Start: 01-17-2024 Zinc 50 mg Sta rt Date: 01/17/24 Status: Ordered Problems Active Problems Problem Classification Problem Date Documented Date Episodic/Chronic Anxiety disorders (4 sources) Anxiety 01-17-2024 Chronic Appendicitis and other appendiceal conditions (4 sources) Disorder of appendix 01-17-2024 Episodic Cancer of bladder (2 sources) Malignant tumor of urinary bladder; 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: [Malignant neoplasm of bladder, unspecified] Onset: 02-01-2024 Chronic Cataract (4 sources) Cataract 01-17-2024 Chronic Chronic obstructive pulmonary disease and bronchiectasis (15 sources) Centriacinar emphysema; 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: [Other emphysema] Onset: 08-02-2023 08-02-2023 Chronic Disorders of lipid metabolism (15 sources) Mixed hyperlipidemia; 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: [Mixed hyperlipidemia] Onset: 08-02-2023 08-02-2023 Chronic Esophageal disorders (3 sources) Gastroesophageal reflux disease without esophagitis; 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: [Gastro-esophageal reflux disease without esophagitis] Onset: 08-02-2023 08-02-2023 Chronic Essential hypertension (20 sources) Essential (primary) hypertension; 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: [Hypertensive disorder] Onset: 04-20-2022 Chronic Fluid and electrolyte disorders (3 sources) Hypokalemia; 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: [Hypokalemia] Onset: 08-02-2023 08-02-2023 Episodic Genitourinary symptoms and ill-defined conditions (10 sources) Blood in urine; 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: [Gross hematuria] Onset: 01-17-2024 Episodic Mood disorders (9 sources) Moderate major depression, single episode; 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: [Major depressive disorder, single episode, moderate] Onset: 08-02-2023 08-02-2023 Chronic Osteoporosis (4 sources) Osteoporosis 01-17-2024 Chronic Other connective tissue disease (4 sources) Disorder of abdominal wall 01-17-2024 Episodic Other diseases of bladder and urethra (2 sources) Disorder of bladder; 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: [Other specified disorders of bladder] Onset: 01-17-2024 Chronic Other diseases of bladder and urethra (4 sources) Mass of urinary bladder 01-17-2024 Chronic Other hereditary and degenerative nervous system conditions (7 sources) Restless legs; 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: [Restless legs syndrome] [...] nutritional; endocrine; and metabolic disorders (6 sources) Qcmnq-5-unondryqpvv deficiency; 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: [Sjase-1-kwprlvsbimk deficiency] Onset: 08-30-2023 11-28-2023 Chronic Other nutritional; endocrine; and metabolic disorders (2 sources) Rlkfc-0-lbsacfrnuof deficiency; 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: [Ysfmz-7-qtfnxxuszis deficiency (Multi)] Onset: 08-30-2023 Chronic Other nutritional; [...] of mental health and substance abuse codes (20 sources) Personal history of nicotine dependence; 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: [Ex-smoker] Onset: 08-16-2022 Episodic Unclassified (3 sources) COUGH, UNSPECIFIED; 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: [COUGH, UNSPECIFIED] Onset: 10-19-2022 Urinary tract infections (2 sources) Urinary tract infectious disease; 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: [Urinary tract infection, site not specified] Onset: 02-01-2024 Episodic Past or Other Problems Problem Classification Problem Date Documented Da te Episodic/Chronic Mood disorders (3 sources) Mood disorders Onset: 08-02-2023 08-02-2023 Unclassified (1 source) COUGH, UNSPECIFIED; 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: [COUGH, UNSPECIFIED] Onset: 10-17-2022 Unclassified (1 source) Onset: 11-28-2023 11-28-2023 Results Test Name Value Interpretation Reference Range Facility Screenson 02-04-2024 Screens [id number] .00TIFF Normal [facility] Pathology Noteon 02-01-2024 Pathology Note [id number] .00TIFF Normal [facility] Patient Educationon 02-01-20 Patient Education Oncology Bladder Cancer Bladder cancer is a condition where abnormal tissue (a tumor) grows in the bladder. The bladder is the organ that holds urine. Two tubes (ureters) carry urine from the kidneys to the bladder. The bladder wall is made of layers of tissue. Cancer that spreads through these layers of the bladder wall becomes more difficult to treat. What increases the risk? The following factors may make you more likely to develop this condition: ? Smoking. ? Working where there are risks (occupational exposures), such as working with rubber, leather, clothing fabric, dyes, chemicals, or paint. ? Being 55 years of age or older. ? Being male. ? Having long-term bladder inflammation. ? Having a history of cancer. This includes: ? A family history of bladder cancer. ? Having had bladder cancer before. ? Having had certain treatments for cancer before, such as: ? Medicines to kill cancer cells (chemotherapy). ? Strong X-ray beams or high-energy capsules to kill cancer cells and shrink tumors (radiation therapy). ? Having been exposed to arsenic. This is a poisonous substance. What are the signs or symptoms? Early symptoms of this condition include: ? Blood in your urine. ? Pain when urinating. ? Infections of your urinary system (urinary tract infections or UTIs) that happen often. ? Having to urinate sooner or more often than normal. Late symptoms of this condition include: ? Not being able to urinate. ? Pain on one side of your lower back. ? Loss of appetite. ? Weight loss. ? Tiredness (fatigue). ? Swelling in your feet. ? Bone pain. How is this diagnosed? This condition is diagnosed based on: ? Your medical history. ? A physical exam. ? Lab tests, such as urine tests. ? Imaging tests. ? Your symptoms. You may also have other tests or procedures, such as: ? A cystoscopy. This involves putting a narrow tube into your urethra. The urethra is the organ that carries urine from your bladder to the outside of your body. This procedure is done to view the lining of your bladder for tumors. ? A biopsy. This involves removing a tissue sample to look at under a microscope to check for cancer. Blood tests or imaging tests may be needed. These show how far into the bladder wall cancer has grown, and if cancer has spread to any other parts of your body. Tests may include: ? CT scan. ? MRI. ? Bone scan. ? X-ray. How is this treated? Your health care provider may recommend one or more types of treatment based on the stage of your cancer. The most common treatments are: ? Surgery to remove the cancer. Types of surgeries include: ? Removing a tumor on the inside wall of the bladder (transurethral resection). ? Removing the bladder (cystectomy). ? Radiation therapy. This is often combined with chemotherapy. ? Chemotherapy. ? Immunotherapy. This uses medicines to help your body's disease-fighting system (immune system) destroy cancer cells. Follow these instructions at home: ? Take zhyx-gto-dynpqmh and prescription medicines only as told by your health care provider. ? If you were prescribed an antibiotic medicine, take it as told by your health care provider. Do not stop using the antibiotic even if you start to feel better. ? Eat a healthy diet. Some treatments might affect your appetite. ? Do not use any products that contain nicotine or tobacco. These products include cigarettes, chewing tobacco, and vaping devices, such as e-cigarettes. If you need help quitting, ask your health care provider. ? Consider joining a support group. This may help you learn to deal with the stress of having bladder cancer. ? Tell your cancer care team if you develop side effects. Your team may be able to recommend ways to get relief. ? Keep all follow-up visits. This is important. Where to find more information ? [place] [employer] (ACS): cancer.org ? National Cancer [place] (NCI): cancer.gov Contact a health care provider if: ? You have symptoms of a UTI. These include: ? Fever. ? Chills. ? Weakness. ? Muscle aches. ? Pain in your abdomen. ? Urge to urinate that is stronger and happens more often than normal. ? Burning in the bladder or urethra when you urinate. Get help right away if: ? There is blood in your urine. ? You cannot urinate. ? You have severe pain or other symptoms that do not go away. Summary ? Bladder cancer is a condition where tumors grow in the bladder. ? Diagnosis is based on your medical history, a physical exam, lab tests, imaging tests, and your symptoms. ? Your health care provider may recommend one or more types of treatment based on the stage of your cancer. ? Consider joining a support group. This may help you learn to deal with the stress of having bladder cancer. This information is not intended to replace advice given to you by your health care provider. Make sure you discuss any questions you have wi (more content not included)... [facility] Provider Letteron 02-01-2024 Provider Letter February 01, 2024 [address]VA [address] [place] [address] : 1955 To Whom It May Concern, Please excuse Jahaira Kaylah from patient from work due today 02/01/2024 due to accompanying her mother to and from her appointment. If you have any questions feel free to reach out at the number listed below. Sincerely, [facility] [address] [place] [address] [facility] Urology Office/Clinic Noteon 02-01-2024 Urology Office/Clinic Note Chief Complaint Pt is here for PO TURBT HPI Staff F/u to review path report from TURBT done 01/23/24. Last seen in office 01/17/24. Dx: bladder mass, gross hematuria, former smoker. CT AP w con and CXR done 01/17/24 at [facility]. S/p cysto done 01/21/24. Dysuria: mild Incomplete bladder emptying: Has Browne Hematuria: comes/goes Leaking: denies Abdominal pain: mild Flank pain: denies History of Present Illness Tests reviewed: reviewed UA, op note, path, CT, cxr. External records: labs, UCx, notes I have reviewed the previous health record information and history for this patient from Dr. Dalton and external providers I have reviewed and verified the staff HPI to be accurate for this encounter. There have been no associated fever, chills, flank pain, or blood in the urine. Review of Systems PHQ Score Initial Depression Screen Score: 0 SCORE ROS - Provider Constitutional: denies weight loss, denies hot flashes. Eyes: denies eye problems. Gastrointestinal: denies nausea, denies vomiting. Cardiovascular: denies chest pain or angina. Integumentary: no dryness Musculoskeletal: denies musculoskeletal symptoms. ENMT: denies otolaryngeal symptoms. Respiratory: no shortness of breath. Heme/Lymph: denies easy bleeding tendency, denies easy bruising tendency. Psychiatric: no confusion, no anxiety. Genitourinary: See HPI. Physical Exam Vitals & Measurements T: 37 ?C(Temporal Artery) HR: 72(Peripheral) RR: 16 BP: 125/61 HT: 59 in HT: 150 cm WT: 56 kg WT: 123.2 lb BMI: 24.89 General Appearance: alert , no acute distress, well nourished, well developed female. Genitourinary: bladder nonpalpable, no flank pain. Assessment/Plan Svetlana is a 68 yo female who presented with gross hematuria and suspected bladder mass s/p TURBT here for follow up - newly diagnosed high grade muscle invasive bladder cancer Pt accompanied by an adult female and adult male. Hx of COPD. Not currently on oxygen. States her stats are in the 90s. [1] Hx of partial hysterectomy. [2] BBS 16 (26). 1. Bladder cancer (C67.9: Malignant neoplasm of bladder, unspecified) CT AP w con 01/17/24 [facility] - Irregular 4.8 cam mass along the L bladder wall. CXR 01/17/24 - No acute process. S/p TURBT 01/23/24 - High grade urothelial carcinoma with lamina propria and muscularis propria invasion. -Fill/pull voiding trial today successful. We discussed pathology report, treatment and management of muscle invasive bladder cancer. We discussed that standard of care for muscle invasive bladder cancer is neoadjuvant chemotherapy followed by a radical cystectomy or up front radical cystectomy. We discussed the risks and benefits of neoadjuvant chemotherapy including a 5% improvement in overall survival compared to cystectomy alone. We also discussed the risks and benefits of radical cystectomy including open or robotic approaches. Complication rates of radical cystectomy between 48 and 74% (ref. Ng. et al 2010 Eur Urol; Quinn et al. 2009 Eur Urol). Rates of high grade complications are 10 - 15%. Common risks of the procedure are bleeding, infection, and ileus. Less common but more significant complications are rectal injury requiring colostomy and obturator nerve injury. Common post operative complications are pneumonia, wound infection, DVT and PE. Readmission rates for radical cystectomy are approximately 25% within 30 days. We discussed alternative treatment options including bladder preservation by combined-modality therapy. This therapy includes extensive endoscopic resection, radiation, and chemotherapy. We discussed that there are no hscx-wh-mlsg trials comparing cystectomy with bladder preservation therapy. By literature review radical cystectomy has improved cancer specific survival and overall survival by at least 10-15%. This data is limited by difficulty with direct stage and grade comparison. We also discussed options including observation and intravesical treatment. However these are highly discouraged. Patient verbalized understanding of this discussion and asked appropriate questions. Pt refuses to proceed with radical cystectomy. Mother had bladder ca, dx at 79, also refused surgery and passed at age 80. Pt is not interested in surgery and QoL is very important and wants to live until 78. Explained the risk of metastasis and poor QoL with tumor regrowth and disease progression. Pt wishes to speak with her family before making any decisions. Pt is uncertain if she would even like to have repeat TURBTs. Pt also does not want to go to [facility]. Discussed referral to rad onc/med oncology regarding bladder preservation therapy. -Follow up one month to discuss tx decision or sooner if needed. Pt understands and agrees with plan. 2. UTI (urinary tract infection) (N39.0: Urinary tract infection, site not specified) Recently went to [facility], after TURBT, due to UTI, bladder pain radiating to back. Took oxybutynin but pain didn't improve so presented to ER. Currently mirta (more content not included)... [facility] Comment on above: Result Comment: Elec tronically Signed By: Sha SINGLETARY, Lin Caldera\.br\Date and Time Signed: 02/01/24 16:30 EDT\.br\Electronically Co-Signed By: Sana Patricia\.br\Date and Time Co-Signed: 02/01/24 14:04 EDT Lab Reportson 01-24-2024 Lab Reports [id number] #1.00TIFF [facility] Operative Reporton Operative Report [id number]. 00TIFF [facility] RAD - MISCon 01-24-2024 RAD MISC [id number] .00TIFF [facility] RAD MISC [id number] .00TIFF [facility] MISC [id number]. 00TIFF [facility] Clay 01-23-2024 L Specimen: [id number] Received: 01/24/24 Status: SOUT Req Num: [id number] Spec Type: Surgical Subm Dr: Lin Dalton MD Tissues: A Urinary Bladder - TUR (BLADDER TUMORS) Procedures: /10, Gross/Micro L5 Age/ Patient Sex Location Account Attending Physician Svetlana Silva 68/F LABE[facility] [id number] Lin Dalton MD SPEC NUM: [id number] RECD: 01/24/24 STATUS: DAKOTAH CHASE NUM: [id number] JULIA: 01/23/[address] [facility] [address]: Lin Dalton MD ENTERED: 01/24/[address] [facility] [address]: Kevin Doe SPEC TYPE: Surgical DEPT: STEPHANY LOVE ORDERED: HE/, Gross/Micro L5 ORDERED: , Gross/Micro L5 Pathological Diagnosis Bladder mass, transurethral resection: High-grade urothelial carcinoma with lamina propria and muscularis propria invasion. Clinical Information Bladder mass Gross Description Received in formalin labeled with the patient's name, date of and bladder tumors is a 5.3 x 3.8 x 1.6 cm aggregate of rubbery and cauterized weaver-pink tissue fragments. No areas of discoloration, calcification or necrosis are identified. The specimen is representatively submitted in cassettes A1?A5. CPT Codes 88453 -------- -------- Specimen: [id number] Received: 01/24/24 Status: DAKOTAH Chase Num: [id number] Spec Type: Surgical Subm Dr: Lin Dalton MD Tissues: A Urinary Bladder - TUR (BLADDER TUMORS) Procedures: , Gross/Micro L5 -------- Patient: Svetlana Silva [id number] (Continued) -------- Signed (signature on file) Pasquale Brumfield MD 01/30/24 1417 Normal [facility] Physician [facility] Consent for Procedure/Surger yon 01-22-2024 Consent for Procedure/Surgery [id number]. 00TIFF Normal [facility] Urine Cytology ([facility])on 01-22-2024 Microscopic exam Cytology (U) [Interp] Diagnosis Info Invalid Interpretation Code [facility] Comment on above: Result Comment: A:Ur ine,Urine:Voided Interpretation - MicroScopic Description - Adequacy - Gross Description Site ID:A color Yellow fixative Alcohol Specimen designated Urine received in alcohol preservative and labeled with the patient?s name, consists of 90ml slightly cloudy yellow fluid. Electronically signed by : on: 01/22/2024 15:40:59 Performed By: #### 1 [id number] #### [facility] Laboratory [address] [place] [address] Consent for Procedure/Surger yon 01-21-2024 Consent for Procedure/Surgery [id number] .00TIFF Normal [facility] Consent for Procedure/Surgery [id number]. 00TIFF Normal [facility] Consent for Treatmenton 01-11 Consent for Treatment [id number] .00TIFF Normal [facility] Inpatient Patient Summaryon 01-21-2024 Inpatient Patient Summary [place] [id number] Clinical Summary Person Information Name: SVETLANA SILVA Age: 68 Years : 1955 Sex: Female PCP: NONE, XXXX Marital Status: Race: White Ethnicity: Non- or Language: Macedonian Visit Id: Visit Reason: BLADDER MASS Speciality: Acuity: Enc Type: Outpatient Med Service: Surgery Arrival: 01/21/2024 08:15:39 Discharge: Dispo Type: Address: [address] [place] [address] [address] [facility] [id number] Provider Notes: Diagnosis: Bladder mass; Gross hematuria [...] Information: EU - Cystoscopy Discharge Instructions (CUSTOM) [facility] IntraOperative Documentson 0 01-21-2024 IntraOperative Documents [id number] .00TIFF [facility] Main OR Intraoperative Recor don 01-21-2024 Main OR Intraoperative Record IntraOp Document Type FTURO Summary Primary Physician: Lin Dalton MD Finalized Date/Time: 01/21/24 08:55:32 Pt. Name: SVETLANA SILVA/Sex: 1955 Female Med Rec #: [id number] Physician: Lin Dalton MD Financial #: [id number] Pt. Type: O Room/Bed: / Admit/Disch: 01/21/24 [...] Laura C Role Performed Surgeon - Primary Application Support Administrator - Primary Scrub - Primary Time In [...] Prep Agents Betadine Solution Skin. Condition Intact, Halma, Warm, and Description n/a Dry Additional None [...] Goodrich 01/21/24 08:55 Jessica Goodrich 01/21/24 08:55 Normal [facility] Main OR Preoperative Recordo n 01-21-2024 Main OR Preoperative Record Holding Area Document Type FTURO Summary Primary Physician: Lin Dalton MD Finalized Date/Time: 01/21/24 08:30:18 Pt. Name: SVETLANA SILVA/Sex: 1955 Female Med Rec #: [id number] Physician: Lin Dalton MD Financial #: [id number] Pt. Type: O Room/Bed: / Admit/Disch: 01/21/24 08:15:39 - Institution: Case Times Holding FTURO Pre-Care Text: Verifies consent for planned procedure, identifies individual values and wishes concerning care, includes family members in perioperative teaching Secures patient's records' belongings, and valuables, maintains patient's dignity and privacy, and maintains patient confidentiality Entry 1 In Holding 01/21/24 08:26:00 Outcomes Met? Yes Last Modified By: SCOTT Fischer RN, Ruthann 01/21/24 08:26:18 Post-Care Text: The patient participates [...] SCOTT Fischer RN, Ruthann 01/21/24 08:30 Normal [facility] Operative Reporton Operative Report Patient: SVETLANA SILVA Age: 68 years Sex: Female : 1955 Associated Diagnoses: None Author: Lin Dalton MD Procedure Operative Information Details: Date/ Time: 01/21/2024 08:52:00. Pre-Op Dx: Gross hematuria (UBI21-JZ R31.0, Discharge, Medical), Bladder mass (FCY29-QT N32.89, Discharge, Medical). Post-Op Dx: Same. Anesthesia [...] mass. Risks/benefits again discussed. CTU 01/17/24 at [facility] - 4.8 x 2.1 cm irregular left bladder wall mass, appears to be continuous with muscle on personal review. No upper tract filling defects, no lymphadenopathy. CXR - no mets. COPD changes (hyperexpansive). Normal [facility] Comment on above: Result Comment: Elec tronically Signed By: Lin Dalton MD\.br\Date and Time Signed: 01/21/24 08:58 EDT Outpatient Surgery Discharge Instructionon 01-21-2024 Outpatient Surgery Discharge Instruction [place] [id number] Patient Discharge Instructions PERSON INFORMATION Name: SVETLANA SILVA Date of : 1955 Current Date: 01/21/2024 08:52:07 PHYSICIANS Admitting Physician: Lin Dalton MD Comment: Discharge Diagnosis: Bladder mass; Gross hematuria SVETLANA SILVA has been given the following list of [...] to serve you. Thank you for choosing [facility] Normal [facility] ED Note-Physicianon 01-18-20 ED Note-Physician [id number] .00TIFF Normal [facility] RAD - CT Reporton 01-18-2024 RAD - CT Report [id number]. 00TIFF Normal [facility] RAD - CT Report [id number] .00TIFF Normal [facility] RAD - MISCon 01-18-2024 RAD - MISC [id number] .00TIFF Normal [facility] RAD - MISC [id number]. 00TIFF Normal [facility] Urology Office/Clinic Noteon 01-18-2024 Urology Office/Clinic Note HPI Staff 68 year old female New Pt. seen in [facility] 01/13/24 due to hematuria associated with [...] new to our office due to recent [facility] ER visit for gross hematuria and suspected bladder mass. Hx of COPD. Not currently on oxygen. States her stats are in the 90s. Pt here with granddaughter today. BBS 26 Hx of partial hysterectomy. 1. Bladder mass (N32.89: Other specified disorders of bladder) Pt presented to [facility] ER 01/13/24 for eval of hematuria [...] UTI. CT AP wo IV con 01/13/24 TB - shows asymmetric focal thickening of the [...] on any blood thinners. No hx of KS or stroke. Pt states her doctor thinks she may of had a stroke when she had COVID, but never confirmed. -Present to the ER if pt is unable to void due to clots -Increase fluids to prevent clots -Urine sent for cytology today -Will schedule CT AP w/ IV and delayed phase to complete urogram @ [facility] STAT prior to TURBT for staging [...] for indwell (more content not included)... Normal [facility] Comment on above: Result Comment: Elec tronically [...] including vitamins, herbs, eye drops, creams, and xufp-qxp-wrhcwpr medicines. ? Any problems you or family members have had with anesthetic medicines. ? Any bleeding problems you have. ? Any surgeries you have had. ? Any medical conditions you have, including recent urinary tract infections. ? Whether you are or may be . What are the risks? General (more content not included)... Normal [facility] Formson 01-17-2024 Forms [id number]. 00TIFF Normal [facility] Patient Educationon 01-17-20 24 Patient Education Oncology [...] including vitamins, herbs, eye drops, creams, and ycan-gwk-mgpbvbu medicines. ? Any problems you or family [...] tells you to take them. ? Taking ocmv-xvg-kllftnf medicines, vitamins, herbs, and supplements. General instructions [...] as y (more content not included)... Normal [facility] Screenson 01-17-2024 Screens [id number] .00TIFF Normal [facility] Urine Cytology ([facility])on 0 01-17-2024 UC Method of Extraction Voided Normal [facility] Comment on above: Performed By: #### 1 [id number] #### [facility] Laboratory [address] [place] [address] Number of Jars 1 Invalid Interpretation Code [facility] Comment on above: Performed By: #### 1 [id number] #### [facility] [address] [place] [address] Specimen Urine Normal [facility] Comment on above: Performed By: #### 1 [id number] #### [facility] [address] [place] [address] Type of Service Technical Only Normal [facility] Comment on above: Performed By: #### 1 [id number] #### [facility] [address] [place] [address] Office Visit (Cardiology)on 03-30-2023 Follow-up visit Diagnoses/Problems Assessed Dyspnea (786.09) (R06.00) Sslvd-3-irdjxhwwdgk 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) Centrilobular emphysema (492.8) (J43.2) Former smoker (V15.82) (Z87.891) HTN (hypertension) (401.9) (I10) Mixed hyperlipidemia (272.2) (E78.2) Overweight with body mass index (BMI) of 26 to 26.9 in adult (278.02,V85.22) (E66.3,Z68.26) Orders Overweight with body mass index (BMI) of 26 to 26.9 in adult Healthy Weight Tips; Status:Complete - Retrospective Authorization; Done: 64Eet9564 Some eating tips that can help you lose weight.; Status:Complete - Retrospective Authorization; Done: 80Ywh1356 SocHx: Former smoker Tobacco Use Screening; Status:Complete; Done: 78Qdb2203 Patient Instructions Please bring all medicines, vitamins, [...] negative for complaint. Vitals Vital Signs Recorded: [id number] 10:39AM Heart Rate76, L Radial Xkgeldhu851, LUE, Sitting Qnqzknras99, LUE, Sitting Height4 ft 11 in Dyrfbg255 lb BMI Msjnjnunsm09.86 kg/m2 BSA Calculated1.55 Tobacco Useb) No PHQ-2 [...] Pulmonary: n (more content not included)... [facility] Screening.on 023 Adult depression screening assessment No [facility] [employer] y 250 DO Work Phone: Fall risk assessment a) No falls within the last year [facility] [employer] y 250 DO Work Phone: Tobacco use status CPHS b) No [facility] Work Phone: Echocardiogramon 03-09-2023 Echocardiography [facility] [address] [place] [address], [address] [facility] [place] [facility] [place] [address] TRANSTHORACIC ECHOCARDIOGRAM REPORT Patient Name: SVETLANA SILVA Reading Physician: [id number] Benny Kang MD Study Date: 03/09/2023 Referring Physician: BENNY KANG MRN/PID: [id number] PCP: Accession/Order#: [id number] Department Location: [facility] [place] Date of : 1955 Fellow: Gender: F Nurse: Admit Date: [place]: Fatuma Vidales RDCS, RVT Height: 149.86 cm CC Report to: Weight: 59.88 kg Study Type: Echocardiogram BSA: 1.55 m2 Blood Pressure: 140 /78 mmHg Diagnosis/ICD: R06.00-Dyspnea, unspecified Indication: HTN, Hyperlipidemia, Former Smoker, Centrilobular Emphysema, Alpha-1 Antitrysin Deficiency, Overweight Procedure/CPT: Echo Complete w Full Doppler-[id number] Study Detail: The following Echo studies were [...] 0.8 m/s (0.6-0.9m/s) PV Max P.7 mmHg [id number] Benny Kang MD Electronically signed on 03/10/2023 at 4:28:00 PM Final Normal [facility] CARDIAC STRESS/REST INJE CTIONon 03-09-2023 [facility] CARDIAC STRESS/REST INJECTION Patient Name: SVETLANA SILVA STUDY: MYOCARDIAL PERFUSION STRESS TEST WITH LEXISCAN Performing facility: [facility], [address] [place] [address], [address], [place], [place] [address] Provider: Benny Kang MD PCP: Dr. David Allan Supervising provider: Polina Palomino MD, [facility] INDICATION: Dyspnea HISTORY: Gender: F; Age: 67 y/o ; Height: 0 cm; Weight: 0 kg. High Cholesterol; HTN; SOB; COPD; Emphysema Quit smoking 3.5 years ago. COMPARISON: No comparison. 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 : dyspnea Overweight with body mass index (BMI) of 26 to 26.9 in adult Healthy Weight Tips; Status:Complete; Done: 20Tjl0758 Some eating tips that can help you lose weight.; Status:Complete; Done: 58Adw5953 SocHx: Former smoker Tobacco Use Screening; Status:Complete; Done: 84Oaf6581 Patient Instructions Please bring all medicines, vitamins, [...] no sei (more content not included)... Normal [employer] Tobacco Screening.on 023 Adult depression screening assessment No [facility] y 250 DO Work Phone: Fall risk assessment b) One or more fall s in the last year [facility] [employer] y 250 DO Work Phone: Tobacco use status CPHS b) No [facility] y 250 DO Work Phone: XR CHEST 2 [...] by: FRANCIS ANDERSON Date: 2022-10-17 15:[address] [facility] CT LUNG CANCER SCREENINGon 0 08-17-2022 CT [...] 022 Albumin [Mass/Vol] 3.9 g/dL Normal 3.4-5.0 [facility] Comment on above: Performed By: #### C MP #### [facility] Laboratory [address] [place] [address] Dr. Shelby Rodriguez Albumin/Globulin [Mass ratio] 1.2 {ratio} Normal [facility] Comment on above: Performed By: #### C MP #### [facility] [address] [place] [address] [address] Shelby Rodriguez ALP [Catalytic activity/Vol] 60 U/L Normal 46-116 [facility] Comment on above: Performed By: #### C MP #### [facility] [address] [place] [address] [address] Shelby Rodriguez ALT [Catalytic activity/Vol] 35 U/L Normal 14-[address] [facility] Comment on above: Performed By: #### C MP #### [facility] [address] [place] [address] [address] Shelby Rodriguez Anion gap [Moles/Vol] 10.3 mmol/L Normal [facility] Comment on above: Performed By: #### C MP #### [facility] [address] [place] [address] [address] Shelby Rodriguez AST [Catalytic activity/Vol] 22 U/L Normal 15-[address] [facility] Comment on above: Performed By: #### C MP #### [facility] [address] [place] [address] [address] Shelby Rodriguez Bilirubin [Mass/Vol] 0.5 mg/dL Normal 0.2-1.[address] [facility] Comment on above: Performed By: #### C MP #### [facility] [address] [place] [address] [address] Shelby Rodriguez Calcium [Mass/Vol] 9.4 mg/dL Normal 8.5-10.1 [facility] Comment on above: Performed By: #### C MP #### [facility] [address] [place] [address] [address] Shelby Rodriguez Chloride [Moles/Vol] 105 mmol/L Normal 98-[address] [facility] Comment on above: Performed By: #### C MP #### [facility] [address] [place] [address] [address] Shelby Rodriguez CO2 [Moles/Vol] 30.5 mmol/L Normal 21.0-32.0 [facility] Comment on above: Performed By: #### C MP #### [facility] [address] [place] [address] [address] Shelby Rodriguez Creatinine [Mass/Vol] 0.87 mg/dL Normal 0.55-1.[address] [facility] Comment on above: Performed By: #### C MP #### [facility] [address] [place] [address] [address] Shelby Rodriguez EGFR-AF NAMIBIAN >60 Normal >=60 [facility] Comment on above: Performed By: #### C MP #### [facility] [address] [place] [address] [address] Shelby Rodriguez EGFR-NON AF NAMIBIAN >60 Normal >=[address] [facility] Comment on above: Performed By: #### C MP #### [facility] [address] [place] [address] [address] Shelby Rodriguez Globulin (S) [Mass/Vol] 3.2 g/dL Normal [facility] Comment on above: Performed By: #### C MP #### [facility] [address] [place] [address] [address] Shelby Rodriguez Glucose [Mass/Vol] 122 mg/dL Critically high 74-106 T [facility] Comment on above: Performed By: #### C MP #### [facility] [address] [place] [address] [address] Shelby Rodriguez Potassium [Moles/Vol] 4.8 mmol/L Normal 3.5-5.[address] [facility] Comment on above: Performed By: #### C MP #### [facility] [address] [place] [address] [address] Shelby Rodriguez Protein [Mass/Vol] 7.1 g/dL Normal 6.4-8.2 [facility] Comment on above: Performed By: #### C MP #### [facility] [address] [place] [address] [address] Shelby Rodriguez Sodium [Moles/Vol] 141 mmol/L Normal 136-145 [facility] Comment on above: Performed By: #### C MP #### [facility] [address] [place] [address] [address] Shelby Rodriguez Urea nitrogen [Mass/Vol] 14.0 mg/dL Normal 7.0-18.[address] [facility] Comment on above: Performed By: #### C MP #### [facility] [address] [place] [address] [address] Shelby Rodriguez Urea nitrogen/Creatinine [Mass ratio] 16.1 mg/mg Normal [facility] Comment on above: Performed By: #### C MP #### [facility] [address] [place] [address] [address] Shelby Rodriguez Vital Signs Date Time Vital Sign Value Performing Clinician Facility 02-01-2024 13:20-0400 Body temperature 98.6 [degF] Lin Lue [facility] 02-01-2024 13:20-0400 Diastolic blood pressure 61 mm[Hg] Lin Lue [facility] 02-01-2024 13:20-0400 Heart rate 72 /min Lin Lue [facility] 02-01-2024 13:20-0400 Respiratory rate 16 /min Lin Lue [facility] 02-01-2024 13:20-0400 Systolic blood pressure 125 mm[Hg] Lin Lue [facility] 11-28-2023 15:41-0400 Body height 149.9 cm Benny Kang MD Work Phone: [facility] 11-28-2023 15:41-0400 Body mass index (BMI) [Ratio] 25.45 kg/m2 Benny Kang MD Work Phone: [facility] 11-28-2023 15:41-0400 Body weight 57.15 kg Benny Kang MD Work Phone: [facility] 11-28-2023 15:41-0400 Diastolic blood pressure 80 mm[Hg] Benny Kang MD Work Phone: [facility] 11-28-2023 15:41-0400 Heart rate 66 /min Benny Kang MD Work Phone: [facility] 11-28-2023 15:41-0400 Systolic blood pressure 130 mm[Hg] Benny Kang MD Work Phone: [facility] 09-24-2023 18:05-0500 Body height 149.9 cm Shaikh Jerrell SINGLETARY Work Phone: [facility] 09-24-2023 18:05-0500 Body mass index (BMI) [Ratio] 24.64 kg/m2 Shaikh Jerrell [employer] Work Phone: [facility] 09-24-2023 18:05-0500 Body temperature 97 [degF] Shaikh Jerrell [employer] Work Phone: [facility] 09-24-2023 18:05-0500 Body weight 55.34 kg Shaikh Jerrell [employer] Work Phone: [facility] 09-24-2023 18:05-0500 Diastolic blood pressure 80 mm[Hg] Shaikh Jerrell [employer]LET[employer] Work Phone: [facility] 09-24-2023 18:05-0500 Heart rate 90 /min Shaikh Jerrell [employer]INGLET[employer] Work Phone: [facility] 09-24-2023 18:05-0500 SaO2% (BldA) [Mass fraction] 97 % Shaikh Jerrell [employer]LET[employer] Work Phone: [facility] 09-24-2023 18:05-0500 Systolic blood pressure 132 mm[Hg] Shaikh Jerrell [employer]INGLET[employer] Work Phone: [facility] 03-30-2023 10:39-0400 Body height 149.86 cm Shaikh Jerrell Work Phone: [facility] 250 DO Work Phone: 03-30-2023 10:39-0400 Body mass index (BMI) [Ratio] 26.86 kg/m2 Shaikh Jerrell Work Phone: [facility] 250 DO Work Phone: 03-30-2023 10:39-0400 Body surface area Derived from formula 1.55 m2 Shaikh Jerrell Work Phone: [facility] 250 DO Work Phone: 03-30-2023 10:39-0400 Body weight 60.33 kg Shaikh Mary Bethwwad Work Phone: [facility] 250 DO Work Phone: 03-30-2023 10:39-0400 Diastolic blood pressure 70 mm[Hg] Khan Fawwad Work Phone: [facility] 250 DO Work Phone: 03-30-2023 10:39-0400 Heart rate 76 /min Shaikh Chikawad Work Phone: [facility] 250 DO Work Phone: 03-30-2023 10:39-0400 Systolic blood pressure 122 mm[Hg] Khan Fawwad Work Phone: [facility] 250 DO Work Phone: 01-26-2023 11:30-0400 Diastolic blood pressure 92 mm[Hg] Khan Fawwad Work Phone: [facility] 250 DO Work Phone: 01-26-2023 11:30-0400 Systolic blood pressure 164 mm[Hg] Khan Fawwad Work Phone: [facility] 250 DO Work Phone: 01-26-2023 11:29-0400 Body height 149.86 cm Khan Mary Bethwwad Work Phone: [facility] 250 DO Work Phone: 01-26-2023 11:29-0400 Body mass index (BMI) [Ratio] 26.66 kg/m2 Khan Fawwad Work Phone: [facility] 250 DO Work Phone: 2023 11:29-0400 Body surface area Derived from formula 1.55 m2 Shaikh Jerrell Work Phone: [facility] 250 DO Work Phone: 01-26-2023 11:29-0400 Body weight 59.88 kg Shaikh Jerrell Work Phone: [facility] 250 DO Work Phone: 01-26-2023 11:29-0400 Diastolic blood pressure 100 mm[Hg] Shaikh Jerrell Work Phone: [facility] 250 DO Work Phone: 01-26-2023 11:29-0400 Heart rate 91 /min Shaikh Jerrell Work Phone: [facility] 250 DO Work Phone: 01-26-2023 11:29-0400 Systolic blood pressure 184 mm[Hg] Shaikh Jerrell Work Phone: [facility] 250 DO Work Phone: Encounters Encounter Date Encounter Type Care Provider Facility Start: 02-01-2024 End: 02-01-2024 ambulatory Lin Dalton Facility:[facility] Start: 02-01-2024 End: 02-01-2024 Patient encounter procedure Lin Dalton [facility] Start: 01-31-2024 End: 01-31-2024 ambulatory KHANMARILU ALLAN Not Available Start: 01-23-2024 End: 01-23-2024 ambulatory Lin Dalton [facility] Work Phone: Start: 01-23-2024 End: 01-23-2024 Departed Referred MD Lin Dalton Work Phone: [facility] Start: 01-23-2024 End: 01-23-2024 ambulatory Lin Dalton Facility:[id number] Start: 01-21-2024 End: 01-21-2024 ambulatory Lin [place] [place] Start: 01-21-2024 End: 01-21-2024 Patient encounter procedure Lin Dalton [facility] Start: 01-17-2024 End: 01-17-2024 Lab Drop off Lin Dalton [facility] Start: 01-17-2024 End: 01-17-2024 ambulatory Lin Dalton [place] [place] Start: 01-17-2024 End: 01-17-2024 Patient encounter procedure Lin Dalton [facility] Start: 01-14-2024 ambulatory Lin Dalton Facility:[facility] Start: 12-31-2023 End: 12-31-2023 ambulatory SHAIKH JERRELL Not Available Start: 11-28-2023 End: 11-28-2023 ambulatory [facility] Start: 11-28-2023 End: 11-28-2023 Office outpatient visit 15 minutes Benny Kang MD Work Phone: [facility] Comment on above: Shortness of breath (Primary Dx); Essential hypertension; Mixed hyperlipidemia; Xnvnt-3-mkfokcnlzun deficiency (Multi); Centrilobular emphysema (Multi); Former smoker; [...] encounter procedure Shaikh Jerrell [employer] Work Phone: [facility] Start: 08-02-2023 End: 08-02-2023 ambulatory SHAIKH JERRELL Not Available Start: 03-30-2023 Office outpatient vi sit 15 minutes Shaikh Jerrell Work Phone: [facility] 250 DO Work Phone: Start: 03-30-[address] Benny Kang Facility: Start: 03-11-2023 Chart Update Shaikh Jerrell Work Phone: [facility] 250 DO Work Phone: Start: 03-10-2023 Chart Update Shaikh Jerrell Work Phone: [facility] 250 DO Work Phone: Start: 03-09-[address] Benny Kang Facility:[id number] Start: 01-26-2023 Office consultation new/estab patient 60 min Shaikh Jerrell Work Phone: [facility] 250 DO Work Phone: Start: 01-26-[address] Benny Kang Facility: Start: 01-02-2023 ambulatory ÁLVARO HUTSON . Facility :[facility] Start: 10-17-2022 End: 10-18-2022 ambulatory ÁLVARO HUTSON . Facility:[facility] Start: 08-16-2022 End: 08-17-2022 ambulatory ÁLVARO HUTSON . Facility:[facility] Start: 04-20-2022 End: 04-21-2022 ambulatory SHAIKH Natasha ALLAN Facility:[facility] Procedures Date Procedure Procedure Detail Performing Clinician Start: 01-23-2024 Transurethral resect ion of bladder neoplasm Lin Dalton Start: 01-21-2024 Cystoscopy normal (finding) Lin Dalton Start: 03-09-2023 Echocardiography Khannatasha Allan Work Phone: Start: 03-04-2023 Mammography Shaikh Chika salazar MD Work Phone: Start: 09-11-2017 Colonoscopy Shaikh Chika salazar MD Work Phone: Appendectomy Shaikh Jerrell Work Phone: Cataract surgery Shaikh Huy coley Work Phone: Colonoscopy Khannatasha Allan Work Phone: Hysterectomy Khannatasha Allan Work Phone: Partial hysterectomy Lin angelo Surgical procedure o n eye proper Khannatasha Allan Work Phone: Plan of Treatment Date Care Activity Detail Author Start: 09-11-2027 Screening for malign ant neoplasm of colon [facility] Start: 09-02-2024 End: 09-02-2024 Patient encounter procedure 09/02/2024 1:30 PM EST Office Visit [facility] [address] [facility] [address] [place] [address] Benny Kang MD [address] [facility] [address] [place] [address] [facility] Start: 08-02-2024 Medicare Annual Well ness (AWV) Medicare Annual Wellness (AWV) [facility] Start: 03-04-2024 Screening for malign ant neoplasm of breast Mammogram [facility] Start: 02-29-2024 ambulatory Ambulatory Facility:[facility] Start: 11-22-2023 End: 11-22-2023 Patient encounter procedure 11/22/2023 11:30 AM EDT Office Visit [facility] [address] [place] [address] Shaikh Allan MD [address] [place] [id number] [facility] Start: 10-05-2023 FUV, Provider: Benny Kang, Status: Pen, Time: 9:20 AM FUV, Provider: Benny Kang, Status: Pen, Time: 9:20 AM [facility] 250 DO Work Phone: Start: 09-24-2023 End: 09-24-2023 Patient encounter procedure 09/24/2023 5:45 PM EST Office Visit [facility] [address] [place] [address] Shaikh Allan MD [address] [place] [id number] [facility] Start: 04-13-2023 COVID-19 Vaccine ( season) COVID-19 Vaccine ( season) [facility] Start: 03-30-2023 FUV, Provider: Benny Kang, Status: Pen, Time: 10:30 AM FUV, Provider: Benny Kang, Status: Pen, Time: 10:30 AM [facility] 250 DO Work Phone: Start: 03-09-2023 ECHO, Provider: JOHN PAUL CHANEL HHVI ULTRASOUND ,[id number], Status: Pen, Time: 10:45 AM ECHO, Provider: XENIA HHVI ULTRASOUND 01,[id number], Status: Pen, Time: 10:45 AM [facility] 250 DO Work Phone: Start: 03-09-2023 STRESS NUC, Provider : XENIA PINOI NUCLEAR 01,[id number], Status: Pen, Time: 8:30 AM STRESS NUC, Provider: XENIA JOHN NUCLEAR 01,[id number], Status: Pen, Time: 8:30 AM [facility] 250 DO Work Phone: Start: 04-26-2021 DTaP/Tdap/Td Vaccine s (1 - Tdap) DTaP/Tdap/Td Vaccines (1 - Tdap) [facility] Start: 2013 Hepatitis B Vaccines (1 of 3 - Risk 3-dose series) Hepatitis B Vaccines (1 of 3 - Risk 3-dose series) [facility] Start: 1993 Screening for malign ant neoplasm of breast Mammogram [facility] Start: 1972 Hepatitis A Vaccines (1 of 2 - Risk 2-dose series) Hepatitis A Vaccines (1 of 2 - Risk 2-dose series) [facility] Start: 1971 Diabetes mellitus screening Diabetes Screening [facility] Start: 1971 Hepatitis C screening Hepatitis C Sc reening [facility] Start: 1953 Lipid panel Lipid Panel [facility] Start: 1953 Medicare Annual Well ness Visit Medicare Annual Wellness Visit (AWV) [facility] Start: 1953 Screening for malign ant neoplasm of colon [facility] Start: 1953 Screening for osteoporosis Bone Density Scan [facility] Immunizations Immunization Date Immunization Notes Care Provider Fa cili 05-26-2023 ABRYSVO - Respirator y syncytial virus (RSV), vaccine, bivalent, protein subunit RSV prefusion F, diluent reconstituted, 0.5 mL, PF Shaikh Jerrell SINGLETARY Work Phone: [facility] 05-24-2023 influenza virus vaccine, unspecified formulation Lin Dalton [facility] 05-24-2023 Influenza, High-dose Seasonal, Quadrivalent, Preservative Free Shaikh Jerrell SINGLETARY Work Phone: [facility] 05-24-2023 Pneumococcal Conjuga te PCV 20 Shaikh Jerrell SINGLETARY Work Phone: [facility] 05-03-2023 pneumococcal conjuga te 20-valent (Prevnar 20) 0.5 ML vaccine Shaikh Jerrell SINGLETARY Work Phone: [facility] 10-27-2022 zoster vaccine recombinant Khan Fawwaalvin Work Phone: [place] [address] DO Work Phone: 08-27-2022 zoster vaccine recombinant Khan Mary Bethwwaalvin Work Phone: [place] [address] DO Work Phone: 06-03-2022 Fluzone High-Dose Quadrivalent 0.7 ML Intramuscular Suspension Prefilled Syringe Khanebookpiewaalvin Work Phone: [place] [address] DO Work Phone: 06-03-2022 influenza virus vaccine, unspecified formulation Lin Dalton [facility] 06-03-2022 influenza, seasonal, injectable Benny Kang MD Work Phone: [facility] Work Phone: 08-03-2021 Pfizer-BioNTech COVID-19 Vacc 30 MCG/0.3ML Intramuscular Suspension Khan Fawwaalvin Work Phone: [facility] 06-02-2021 Fluzone High-Dose Quadrivalent 0.7 ML Intramuscular Suspension Prefilled Syringe Khan Fawwaalvin Work Phone: [facility] 250 DO Work Phone: 06-02-2021 influenza virus vaccine, unspecified formulation Lin Lue [facility] 04-25-2021 diphtheria, tetanus toxoids and pertussis vaccine Shaikh Jerrell Work Phone: [facility] 04-25-2021 tetanus and diphther ia toxoids, adsorbed, preservative free, for adult use (2 Lf of tetanus toxoid and 2 Lf of diphtheria toxoid) Benny Kang MD Work Phone: [facility] Work Phone: 12-23-2020 Pfizer-BioNTech COVID-19 Vacc 30 MCG/0.3ML Intramuscular Suspension Shaikh Chikawad Work Phone: [facility] 12-02-2020 Pfizer-BioNTech COVID-19 Vacc 30 MCG/0.3ML Intramuscular Suspension Shaikh Chikamarie Work Phone: [facility] 07-21-2014 influenza virus vaccine, unspecified formulation Lin Lue [facility] 07-21-2014 influenza, seasonal, injectable Khan Fawwad Work Phone: [place] [address] DO Work Phone: 06-21-2013 influenza virus vaccine, unspecified formulation Lni Lue [facility] 06-21-2013 influenza, seasonal, injectable Khan Fawwad Work Phone: [facility] 250 DO Work Phone: 08-31-2012 influenza virus vaccine, unspecified formulation Lin Lue [facility] 01-19-2013 influenza, seasonal, injectable, preservative free Shaikh Jerrell Work Phone: -[facility] [address] DO Work Phone: Payers Date Payer Category Payer Self-pay [id number] 2018 Medicare [id number] 1959 Medicare [id number] 1959 Private Health Insurance [facility] 2006 1953 Unknown [id number] 2.16.84 0.1.680890.3.579.2.593 1953 Unknown [id number] 2.16.84 0.1.070940.3.579.2.593 1953 Unknown [id number] 2.16.84 0.1.067263.3.579.2.593 1953 Unknown [id number] 2.16.84 0.1.775178.3.579.2.593 1953 Unknown [id number] 2.16. 840.1.173710.3.579.2.356 1953 Unknown [id number] 2.16. 840.1.759808.3.579.2.356 1953 Unknown [id number] 2.16. 840.1.257622.3.579.2.356 1953 Unknown [id number] 2.16.8 40.1.950974.3.579.2.1068 1953 Unknown [id number] 2.16.8 40.1.743188.3.579.2.1244 1953 Unknown [id number] 2.16.84 0.1.336315.3.579.2.1259 1953 Unknown [id number] 2.16.84 0.1.094994.3.579.2.1259 1953 Unknown [id number] 2.16.84 0.1.365392.3.579.2.1259 1953 Unknown [id number] 2.16.84 0.1.525155.3.579.2.1259 1953 Unknown [id number] 2.16.84 0.1.100651.3.579.2.1259 1953 Unknown [id number] 2.16.840 .1.494035.3.579.2.1259 1953 Unknown [id number] 2.16.8 40.1.286708.3.579.2.727 1953 Unknown [id number] 2.16.8 40.1.993646.3.579.2.727 1953 Unknown [id number] 2.16.8 40.1.892426.3.579.2.727 1953 Unknown [id number] 2.16.8 40.1.104305.3.579.2.727 1953 Unknown [id number] 2.16.8 40.1.417812.3.579.2.727 1953 Unknown [id number] 2.16.8 40.1.092015.3.579.2.727 Medicaid [id number] Private Health Insurance [facility] [id number] Unknown Unknown [id number] 2.16.8 40.1.160806.3.579.2.531 Social History Date Type Detail Facility Start: 08-29-2023 End: 11-28-2023 No caffeine use No caffeine use [place] [address] DO Work Phone: Start: 08-29-2023 End: 02-01-2024 Tobacco smoking status [facility] Ex-smoker [facility] Start: 10-25-2017 End: 06-28-2020 History of tobacco use Current smoker [facility] End: 06-28-2020 History of tobacco use Cigarette Smoker [facility] Start: 08-29-2023 End: 11-28-2023 Tobacco use and exposure Smokeless tobacco non-user [facility] Start: 08-29-2023 End: 11-28-2023 Alcohol intake Lifetime non-drinker (finding) [facility] Start: 08-29-2023 End: 11-28-2023 Tobacco use panel [facility] Start: 07-18-2023 Alcohol Comment caffeine: 1-2 cups per day [facility] Start: 1955 Sex Assigned At Not on file [facility] Start: 11-18-2023 End: 11-28-2023 Exposure to SARS-CoV-2 (event) Not sure [facility] Start: 1955 Sex Assigned At Female [facility] Tobacco smoking status Never [facility] NEGATED: Highlighted rowStart: NINF History of tobacco use Passive smoker [facility] Medical Equipment Procedure Code Equipment Code Equipment Original Text Equipment Identifier Dates Phacoemulsification of cataract with intraocular lens implantation LENS ACRYSOF IOL [id number] FDA Start: 09-27-2017 Phacoemulsification of cataract with intraocular lens implantation LENS ACRYSOF IOL [id number] FDA Start: 10-25-2017 Functional Status Date Assessment Result Facility 02-01-2024 Functional Status N/A [facility] Clinical Notes 01-26-2023 to 02-01-2024 Benny Kang MD - 11/28/2023 2:50 PM EDTPatient InstructionsShesteban Allan MD - 09/24/2023 6:31 PM ESTSfanny Allan MD - 09/24/2023 5:45 PM EST Note Date & Type Note Facility 02-01-2024 Hospital Discharg e instructions Patient Education 02/01/2024 14:02:00 Bladder Cancer Bladder Cancer Bladder cancer is a condition where abnormal tissue (a tumor) grows in the bladder. The bladder is the organ that holds urine. Two tubes (ureters) carry urine from the kidneys to the bladder. The bladder wall is made of layers of tissue. Cancer that spreads through these layers of the bladder wall becomes more difficult to treat. What increases the risk? The following factors may make you more likely to develop this condition: Smoking. Working where there are risks (occupational exposures), such as working with rubber, leather, clothing fabric, dyes, chemicals, or paint. Being 55 years of age or older. Being male. Having long-term bladder inflammation. Having a history of cancer. This includes: ?A family history of bladder cancer. ?Having had bladder cancer before. ?Having had certain treatments for cancer before, such as: ?Medicines to kill cancer cells (chemotherapy). ?Strong X-ray beams or high-energy capsules to kill cancer cells and shrink tumors (radiation therapy). Having been exposed to arsenic. This is a poisonous substance. What are the signs or symptoms? Early symptoms of this condition include: Blood in your urine. Pain when urinating. Infections of your urinary system (urinary tract infections or UTIs) that happen often. Having to urinate sooner or more often than normal. Late symptoms of this condition include: Not being able to urinate. Pain on one side of your lower back. Loss of appetite. Weight loss. Tiredness (fatigue). Swelling in your feet. Bone pain. How is this diagnosed? This condition is diagnosed based on: Your medical history. A physical exam. Lab tests, such as urine tests. Imaging tests. Your symptoms. You may also have other tests or procedures, such as: A cystoscopy. This involves putting a narrow tube into your urethra. The urethra is the organ that carries urine from your bladder to the outside of your body. This procedure is done to view the lining of your bladder for tumors. A biopsy. This involves removing a tissue sample to look at under a microscope to check for cancer. Blood tests or imaging tests may be needed. These show how far into the bladder wall cancer has grown, and if cancer has spread to any other parts of your body. Tests may include: CT scan. MRI. Bone scan. X-ray. How is this treated? Your health care provider may recommend one or more types of treatment based on the stage of your cancer. The most common treatments are: Surgery to remove the cancer. Types of surgeries include: ?Removing a tumor on the inside wall of the bladder (transurethral resection). ?Removing the bladder (cystectomy). Radiation therapy. This is often combined with chemotherapy. Chemotherapy. Immunotherapy. This uses medicines to help your body's disease-fighting system (immune system) destroy cancer cells. Follow these instructions at home: Take wipy-rlr-knjkoox and prescription medicines only as told by your health care provider. If you were prescribed an antibiotic medicine, take it as told by your health care provider. Do not stop using the antibiotic even if you start to feel better. Eat a healthy diet. Some treatments might affect your appetite. Do not use any products that contain nicotine or tobacco. These products include cigarettes, chewing tobacco, and vaping devices, such as e-cigarettes. If you need help quitting, ask your health care provider. Consider joining a support group. This may help you learn to deal with the stress of having bladder cancer. Tell your cancer care team if you develop side effects. Your team may be able to recommend ways to get relief. Keep all follow-up visits. This is important. Where to find more information [place] [employer] (ACS): cancer.org National Cancer [place] (NCI): cancer.gov Contact a health care provider if: You have symptoms of a UTI. These include: ?Fever. ?Chills. ?Weakness. ?Muscle aches. ?Pain in your abdomen. ?Urge to urinate that is stronger and happens more often than normal. ?Burning in the bladder or urethra when you urinate. Get help right away if: There is blood in your urine. You cannot urinate. You have severe pain or other symptoms that do not go away. Summary Bladder cancer is a condition where tumors grow in the bladder. Diagnosis is based on your medical history, a physical exam, lab tests, imaging tests, and your symptoms. Your health care provider may recommend one or more types of treatment based on the stage of your cancer. Consider joining a support group. This may help you learn to deal with the stress of having bladder cancer. This information is not intended to replace advice given to you by your health care provider. Make sure you discuss any questions you have with your health care provider. Document Revised: 07/10/2022 Document Reviewed: 07/10/2022 [employer] Patient Education 2022 [employer]. Follow Up Care 01/25/2024 10:58:20 With:Sha SINGLETARY, KYLE Aguilera, URO Address: When: Unknown [facility] [place] 01-21-2024 [facility] Discharg e instructions Patient Education 01/21/2024 08:52:05 [...] appointment for TURBT, possible left ureteral stent [facility] 01-21-2024 Note [id number] [facility] 01-21-2024 Note Cystoscopy ? Voiding after the [...] you have a fever over 100 degrees. [facility] 01-17-2024 [facility] Discharg e instructions Patient Education 01/17/2024 11:15:35 [...] including vitamins, herbs, eye drops, creams, and idvc-dcj-zoelgcc medicines. Any problems you or family members [...] provider tells you to take them. Taking ddmp-qxl-bidzglo medicines, vitamins, herbs, and supplements. General instructions [...] provider. Document Revised: 08/04/2022 Document Reviewed: 08/04/2022 [employer] Patient Education 2022 [employer]. 01/17/2024 10:58:38 Cystoscopy Cystoscopy Cystoscopy is a [...] including vitamins, herbs, eye drops, creams, and rodi-hwe-jmgbqai medicines. Any problems you or family members [...] provider tells you to take them. Taking bwdl-bkk-jadkvxf medicines, vitamins, herbs, and supplements. Tests You [...] Follow these instructions at home: Medicines Take tbsp-vdz-eazbrkx and prescription medicines only as told by [...] provider. Document Revised: 04/12/2022 Document Reviewed: 03/11/2021 [employer] Patient Education 2022 [employer]. Follow Up Care 01/14/2024 11:56:48 With:Sha SINGLETARY, KYLE Aguilera, URO Address: When: Unknown [facility] 11-28-2023 History of Presen t illness Narrative [...] Up In Cardiology 3. Mixed hyperlipidemia 4. Hchst-6-apsjlcprlwn deficiency (Multi) 5. Centrilobular emphysema (Multi) 6. [...] discussion and plan. documented in this encounter [facility] Work Phone: 11-28-2023 Instructions Iesha Roper [...] instructions on exercise. documented in this encounter [facility] Work Phone: 09-24-2023 History of Presen [...] major depressive disorder without prior episode (HCC) ([facility]/HCC) - Primary Patient was seen last appointment [...] weeks (around 11/05/2023). documented in this encounter [facility] 01-26-2023 History of Presen t illness Narrative [...] function test, lab work and remote echo1.Plan -[facility] [employer] DO Work Phone: Chief complaint Narrative - Reported SVETLANA SILVA is being seen for a consultation for shortness of breath. -[facility] [employer] 250 DO Work Phone: Evaluation + Plan note Future Appointments Appointment Date:01/18/2024 10:30:00 AM Scheduled Provider: Location:[facility] Appointment Type:Urology CALL PAT Appointment Date:01/21/2024 08:00:00 AM Scheduled Provider: Location:[facility] Appointment Type:Urology FT [facility] [place] Evaluation + Plan note Future Appointments Appointment Date:01/18/2024 10:30:00 AM Scheduled Provider: Location:[facility] Appointment Type:Urology CALL PAT FT Appointment Date:01/21/2024 08:00:00 AM Scheduled Provider: Location:[facility] Appointment Type:Urology FT Diagnostic Tests PendingUrine Cytology ([facility]) 01/17/24 [facility] Evaluation + Plan note Future Appointments Appointment Date:02/29/2024 09:15:00 AM Scheduled Provider:Lin Dalton MD Location:[facility] hospital Appointment Type:URO Office Visit [facility] Evaluation note Diagnosis Primary hypertension (CMS/HCC)- Primary Unspecified essential hypertension [facility] Current moderate episode of major depressive disorder without prior episode (HCC) (CMS/HCC)- Primary [facility] Diagnosis Shortness of breath- Primary Essential hypertension Unspecified essential hypertension Mixed hyperlipidemia Tkpbu-2-qerzngcbyhv deficiency (Multi) Feaxg-8-nqupndpdyem deficiency Centrilobular emphysema (Multi) Former smoker Personal history of tobacco use, presenting hazards to health BMI 25.0-25.9,adult documented in this encounter [facility] Work Phone: Evaluation noteNo assessment information available [facility] Work Phone: History of Present illness Narrative* [...] her back in 6 months and follow-up [facility] DO Work Phone: Hospital course Narrative No data available for this section [facility] Hospital Discharge instructions No data available for this section [facility] No data available for this section [facility] Reason for referral (narrative)* Consultation (Routine) - Authorized Specialty Diagnoses / Procedures Referred By Joelle t Referred To Contact Cardiology Diagnoses Essential hypertension Procedures Follow Up In Cardiology Benny Kang MD [address] [place] [address], [address] [address] Benny Kang MD [address] [place] [address] 2, [address] [address] Referral ID Status Reason Start Date Expiration Date V isits Requested Visits Authorized [id number] Authorized 11/28/2023 11/27/[address] [facility] Work Phone: Summary Purpose Family History [...] DATE CREATED AUTHOR AUTHOR'S ORGANIZ ATION 03/31/2023 [facility] DATE CREATED AUTHOR AUTHOR'S ORGANIZ ATION 03/31/2023 [facility] DATE CREATED AUTHOR AUTHOR'S ORGANIZ ATION 04/13/2023 [facility] DATE CREATED AUTHOR AUTHOR'S ORGANIZ ATION 11/30/2023 [facility] DATE CREATED AUTHOR AUTHOR'S ORGANIZ ATION 02/01/2024 [facility] DATE CREATED AUTHOR AUTHOR'S ORGANIZ ATION 02/01/[address] [facility] EPIC DATE CREATED AUTHOR AUTHOR'S ORGANIZ ATION 02/05/2024 [facility] DATE CREATED AUTHOR AUTHOR'S ORGANIZ ATION 02/07/2024 [facility] Care Teams (unrecognized sec tion and content) Software Security Consultant Relationship Specialty Start Date End Date Shaikh Allan MD PCP - General Internal Medicine 06/07/23 Software Security Consultant Relationship Specialty Start Date End Date Shaikh Allan MD [address] [place] [address] PCP - General Internal Medicine 09/24/23 Software Security Consultant Relationship Specialty Start Date End Date Shaikh [...] BE BASED ON THE PRIMARY CLINICAL RECORDS. [employer] provides no warranty or guarantee of the accuracy or completeness of information in this document.
[2024-02-28 09:12] LABS: Hemoglobin 12.2 g/dL (12.0-16.0)
[2024-02-28] MEDS: ALBUTEROL SULFATE 2.5 MG/3 ML VIAL NEB IH (10:05)
== END 2024-02-28 09:02 | disposition home or self-care (01) ==
LOC: CARD 09:02
PROVIDERS: PCP Internal Medicine; Visit Provider Internal Medicine
DX: J43.2 Centrilobular emphysema (principal)
CPT/HCPCS: 36415; 85018; 94060; 94726; 94729

== ENCOUNTER 2024-03-10 09:05 | Outpatient (OUT) | payer MEDICARE, SELFPAY ==
--- OUTSIDE RECORDS SUMMARY | 2024-02-28 09:14 | XMS_ITS | CCD ---
Author Organization 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 Álvaro Fritz Referring Unavailab le Traboulssi, Dr. Velasquez Attending Unavaila ble Traboulangeles, Dr. Velasquez Referring Unavaila ble Traboulssi, Dr. Velasquez Attending Unavaila ble Traboulsskeith, Dr. Velasquez Referring Unavaila ble Traboulssi, Dr. Velasquez Attending Unavaila ble Jorge Luis, Dr. Velasquez Attending Unavaila raul Allan MD, [facility] Primary Care Provider Shaik Allan MDh Primary Care Provider Shaik Allan MDh Primary Care Provider BENNY KANG Attending Unavailable RADHA ALLANIKH Primary Care Unavailable NONE, XXXX Primary Care Physician UnavailMD Lin Obando Attending Provider Lin Dalton Attending Unavailable Lin Dalton Admitting [...] Drug Allergy Nausea (finding) [facility] (3 sources) Codeine; 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: [CODEINE] Drug Allergy 7 [facility] Repository (9 sources) Codeine; 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: [Codeine Derivatives] Drug Allergy 9 Nausea Only, GI intolerance, Other, Nausea/vomiting , Nausea (finding) [facility] (1 source) Codeine Drug Allergy 8 [facility] Repository Medications Current Medications Medication Drug Class(es) [...] Refill(s) 0 Start Date: 02/01/24 Status: Ordered [id number] 200 actuat albuterol 0.09 mg/actuat metered dose [...] 1 puff(s) by inhalation twice daily Ipratropium [place] (Atrovent Hfa) 17 mcg/actuation HFA aerosol inhaler [...] nutritional; endocrine; and metabolic disorders (6 sources) Wwdgy-8-wpztjwyxqkd deficiency; 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: [Spidu-4-kzbhpzfkvkh deficiency] Onset: 08-30-2023 11-28-2023 Chronic Other nutritional; endocrine; and metabolic disorders (2 sources) Sdlxl-5-yvueqtfsuyt deficiency; 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: [Btkmn-1-ocrymibwuqo deficiency (Multi)] Onset: 08-30-2023 Chronic Other nutritional; [...] Interpretation Reference Range Facility [facility] 02-04-2024 Screens [id number]#1 .00TIFF Normal [facility] Pathology Noteon 02-01-2024 Pathology Note [id number]#1 .00TIFF Normal [facility] Patient Educationon 02-01-20 Patient Education [...] Follow these instructions at home: ? Take fwes-mib-yrrnwal and prescription medicines only as told by [...] important. Where to find more information ? [employer] (ACS): cancer.org ? National Cancer [place] (NCI): cancer.gov Contact a health care provider [...] you have wi (more content not included)... [facility] Provider Letteron 02-01-2024 Provider Letter February 01, 2024 [address]VA [address] [place] [address] : 1955 To Whom It May Concern, Please excuse Jahaira Kaylah from patient from work due today 02/01/2024 due to accompanying her mother to and from her appointment. If you have any questions feel free to reach out at the number listed below. Sincerely, [facility] [address] [place] [address] [facility] Urology Office/Clinic Noteon 02-01-2024 Urology Office/Clinic Note Chief Complaint Pt is here for PO TURBT HPI Staff F/u to review path report from TURBT done 01/23/24. Last seen in office 01/17/24. Dx: bladder mass, gross hematuria, former smoker. CT AP w con and CXR done 01/17/24 at [facility]. S/p cysto done 01/21/24. Dysuria: mild [...] chemotherapy. We discussed that there are no iusq-fi-wpdf trials comparing cystectomy with bladder preservation therapy. [...] infection, site not specified) Recently went to [facility], after TURBT, due to UTI, bladder pain radiating to back. Took oxybutynin but pain didn't improve so presented to ER. Currently mirta (more content not included)... [facility] Comment on above: Result Comment: Elec tronically Signed By: Sha SINGLETARY, Lin Caldera\.br\Date and Time Signed: 02/01/24 16:30 EDT\.br\Electronically Co-Signed By: Sana Patricia\.br\Date and Time Co-Signed: 02/01/24 14:04 EDT Lab Reportson 01-24-2024 Lab Reports [id number] #1.00TIFF [facility] Operative Reporton Operative Report [id number]#1. 00TIFF [facility] RAD - MISCon 01-24-2024 RAD MISC [id number]#1 .00TIFF [facility] RAD MISC [id number]#1 .00TIFF [facility] MISC [id number]#1. 00TIFF [facility] Clay 01-23-2024 L Specimen: [id number] Received: 01/24/24 Status: SOUT Req Num: [id number] Spec Type: Surgical Subm Dr: Lin Dalton MD Tissues: A Urinary Bladder - TUR (BLADDER TUMORS) Procedures: /10, Gross/Micro L5 Age/ Patient Sex Location Account Attending Physician Svetlana Silva 68/F LABELL [id number] Lin Dalton MD SPEC NUM: [id number] RECD: 01/24/24 STATUS: DAKOTAH CHASE NUM: [id number] JULIA: 01/23/[address] [facility] [address]: Lin Dalton MD ENTERED: 01/24/[address] [facility] [address]: Kevin Doe SPEC TYPE: Surgical DEPT: [...] representatively submitted in cassettes A1?A5. CPT Codes 64506 -------- -------- Specimen: [id number] Received: 01/24/24 Status: DAKOTAH Chase Num: [id number] Spec Type: Surgical Subm Dr: Lin Dalton MD Tissues: A Urinary Bladder - TUR (BLADDER TUMORS) Procedures: , Gross/Micro L5 -------- Patient: Svetlana Silva [id number] (Continued) -------- Signed (signature on file) Pasquale Brumfield MD 01/30/24 1417 Normal [facility] Physician [facility] Consent for Procedure/Surger yon 01-22-2024 Consent for Procedure/Surgery [id number]#1. 00TIFF Normal [facility] Urine Cytology ([facility])on 01-22-2024 Microscopic exam Cytology (U) [Interp] Diagnosis Info Invalid Interpretation Code [facility] Comment on above: Result Comment: A:Ur ine,Urine:Voided Interpretation - MicroScopic Description - Adequacy - Gross Description Site ID:A color Yellow fixative Alcohol Specimen designated Urine received in alcohol preservative and labeled with the patient?s name, consists of 90ml slightly cloudy yellow fluid. Electronically signed by : on: 01/22/2024 15:40:59 Performed By: #### 1 [id number] #### [facility] Laboratory [address] [place] [address] Consent for Procedure/Surger yon 01-21-2024 Consent for Procedure/Surgery [id number]#1 .00TIFF Normal [facility] Consent for Procedure/Surgery [id number]#1. 00TIFF Normal [facility] Consent for Treatmenton 01-11 Consent for Treatment [id number]#1 .00TIFF Normal [facility] Inpatient Patient Summaryon 01-21-2024 Inpatient Patient Summary [place] [id number] Clinical Summary Person Information Name: SVETLANA SILVA Age: 68 Years : 1955 Sex: Female PCP: NONE, XXXX Marital Status: Race: White Ethnicity: Non- or Language: Czech Visit Id: Visit Reason: BLADDER MASS Speciality: Acuity: Enc Type: Outpatient Med Service: Surgery Arrival: 01/21/2024 08:15:39 Discharge: Dispo Type: Address: [address] [place] [address] [address] [facility] [id number] Provider Notes: Diagnosis: Bladder mass; Gross hematuria [...] Information: EU - Cystoscopy Discharge Instructions (CUSTOM) [facility] IntraOperative Documentson 0 01-21-2024 IntraOperative Documents [id number]#1 .00TIFF [facility] Main OR Intraoperative Recor don 01-21-2024 Main OR Intraoperative Record IntraOp Document Type FTURO Summary Primary Physician: Lin Dalton MD Finalized Date/Time: 01/21/24 08:55:32 Pt. Name: SVETLANA SILVA/Sex: 1955 Female Med Rec #: [id number] Physician: Lin Dalton MD Financial #: [id number] Pt. Type: O Room/Bed: / Admit/Disch: 01/21/24 [...] Laura C Role Performed Surgeon - Primary Franchise Sales Manager - Primary Scrub - Primary Time In [...] Prep Agents Betadine Solution Skin. Condition Intact, Platea, Warm, and Description n/a Dry Additional None [...] 01/21/24 08:55 Jessica Goodrich 01/21/24 08:55 Normal [facility] Main OR Preoperative Recordo n 01-21-2024 Main OR Preoperative Record Holding Area Document Type FTURO Summary Primary Physician: Lin Dalton MD Finalized Date/Time: 01/21/24 08:30:18 Pt. Name: SVETLANA SILVA/Sex: 1955 Female Med Rec #: [id number] Physician: Lin Dalton MD Financial #: [id number] Pt. Type: O Room/Bed: / Admit/Disch: 01/21/24 [...] SCOTT Fischer RN, Ruthann 01/21/24 08:30 Normal [facility] Operative Reporton Operative Report Patient: SVETLANA SILVA Age: 68 years Sex: Female : 1955 Associated Diagnoses: None Author: Lin Dalton MD Procedure Operative Information Details: Date/ Time: 01/21/2024 08:52:00. Pre-Op Dx: Gross hematuria (GBK37-RI R31.0, Discharge, Medical), Bladder mass (KWS87-WZ N32.89, Discharge, Medical). Post-Op Dx: Same. Anesthesia [...] mass. Risks/benefits again discussed. CTU 01/17/24 at [facility] - 4.8 x 2.1 cm irregular left bladder wall mass, appears to be continuous with muscle on personal review. No upper tract filling defects, no lymphadenopathy. CXR - no mets. COPD changes (hyperexpansive). Normal [facility] Comment on above: Result Comment: Elec tronically Signed By: Lin Dalton MD\.br\Date and Time Signed: 01/21/24 08:58 EDT Outpatient Surgery Discharge Instructionon 01-21-2024 Outpatient Surgery Discharge Instruction [place] [id number] Patient Discharge Instructions PERSON INFORMATION Name: SVETLANA [...] to serve you. Thank you for choosing [facility] Normal [facility] ED Note-Physicianon 01-18-20 ED Note-Physician [id number]#1 .00TIFF Normal [facility] RAD - CT Reporton 01-18-2024 RAD - CT Report [id number]#1. 00TIFF Normal [facility] RAD - CT Report [id number]#1 .00TIFF Normal [facility] RAD - MISCon 01-18-2024 RAD - MISC [id number]#1 .00TIFF Normal [facility] RAD - MISC [id number]#1. 00TIFF Normal [facility] Urology Office/Clinic Noteon 01-18-2024 Urology Office/Clinic Note HPI Staff 68 year old female New Pt. seen in [facility] 01/13/24 due to hematuria associated with [...] new to our office due to recent [facility] ER visit for gross hematuria and suspected bladder mass. Hx of COPD. Not currently on oxygen. States her stats are in the 90s. Pt here with granddaughter today. BBS 26 Hx of partial hysterectomy. 1. Bladder mass (N32.89: Other specified disorders of bladder) Pt presented to [facility] ER 01/13/24 for eval of hematuria [...] on any blood thinners. No hx of TN or stroke. Pt states her doctor thinks she may of had a stroke when she had COVID, but never confirmed. -Present to the ER if pt is unable to void due to clots -Increase fluids to prevent clots -Urine sent for cytology today -Will schedule CT AP w/ IV and delayed phase to complete urogram @ [facility] STAT prior to TURBT for staging [...] for indwell (more content not included)... Normal [facility] Comment on above: Result Comment: [...] including vitamins, herbs, eye drops, creams, and hejk-xbt-awmivhv medicines. ? Any problems you or family members have had with anesthetic medicines. ? Any bleeding problems you have. ? Any surgeries you have had. ? Any medical conditions you have, including recent urinary tract infections. ? Whether you are or may be . What are the risks? General (more content not included)... Normal [facility] Formson 01-17-2024 Forms [id number]#1. 00TIFF Normal [facility] Patient Educationon 01-17-20 24 Patient [...] including vitamins, herbs, eye drops, creams, and exzn-zka-rbraqqr medicines. ? Any problems you or family [...] tells you to take them. ? Taking ozeo-vjd-nazsqfp medicines, vitamins, herbs, and supplements. General instructions [...] as y (more content not included)... Normal [facility] 01-17-2024 Screens [id number]#1 .00TIFF Normal [facility] Urine Cytology ([facility])on 0 01-17-2024 UC Method of Extraction Voided Normal [facility] Comment on above: Performed By: #### 1 [id number] #### [facility] Laboratory [address] [place] [address] Number of Jars 1 Invalid Interpretation Code [facility] Comment on above: Performed By: #### 1 [id number] #### [facility] [address] [place] [address] Specimen Urine Normal [facility] Comment on above: Performed By: #### 1 [id number] #### [facility] [address] [place] [address] Type of Service Technical Only Normal [facility] Comment on above: Performed By: #### 1 [id number] #### [facility] [address] [place] [address] Office Visit (Cardiology)on 03-30-2023 Follow-up visit Diagnoses/Problems Assessed Dyspnea (786.09) (R06.00) Xiyxx-7-hvlnqqvpztl 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) Centrilobular emphysema (492.8) (J43.2) Former smoker (V15.82) (Z87.891) HTN (hypertension) (401.9) (I10) Mixed hyperlipidemia (272.2) (E78.2) Overweight with body mass index (BMI) of 26 to 26.9 in adult (278.02,V85.22) (E66.3,Z68.26) Orders Overweight with body mass index (BMI) of 26 to 26.9 in adult Healthy Weight Tips; Status:Complete - Retrospective Authorization; Done: 15Onl5962 Some eating tips that can help you lose weight.; Status:Complete - Retrospective Authorization; Done: 34Mud5344 SocHx: Former smoker Tobacco Use Screening; Status:Complete; Done: 02Eik2623 Patient Instructions Please bring all medicines, vitamins, [...] Medication Codeine Derivatives Nausea; Recorded By: Stanton hSea; 01/26/2023 11:23:41 AM Social History Problems Former [...] negative for complaint. Vitals Vital Signs Recorded: 33Bdy5182 10:39AM Heart Rate76, L Radial Uktuhegq334, LUE, Sitting Hyvhpuica25, LUE, Sitting Height4 ft 11 in Zurvel392 lb BMI Vwpntizfnf56.86 kg/m2 BSA Calculated1.55 Tobacco Useb) No PHQ-2 [...] Pulmonary: n (more content not included)... Normal [facility] Tobacco Screening.on 023 Adult depression screening assessment No [facility] [place] y 250 DO Work Phone: Fall risk assessment a) No falls within the last year [facility] [place] y 250 DO Work Phone: Tobacco use status CPHS b) No [facility] DO Work Phone: Echocardiogramon 03-09-2023 Echocardiography [facility] [address] [place] [address], Suite [facility], [place] [address] TRANSTHORACIC ECHOCARDIOGRAM REPORT Patient Name: SVETLANA SILVA Reading Physician: [id number] Benny Kang MD Study Date: 03/09/2023 Referring Physician: BENNY KANG MRN/PID: [id number] PCP: Accession/Order#: [id number] Department Location: [facility] [place] Date of : 1955 Fellow: Gender: F Nurse: Admit Date: Overage Shortage And Damage Clerk: Fatuma Vidales RDCS, RVT Height: 149.86 cm CC Report to: Weight: 59.88 kg Study Type: Echocardiogram BSA: 1.55 m2 Blood Pressure: 140 /78 mmHg Diagnosis/ICD: R06.00-Dyspnea, unspecified Indication: HTN, Hyperlipidemia, Former Smoker, Centrilobular Emphysema, Alpha-1 Antitrysin Deficiency, Overweight Procedure/CPT: Echo Complete w Full Doppler-58069 Study Detail: The following Echo studies were [...] 0.8 m/s (0.6-0.9m/s) PV Max P.7 mmHg [id number] Benny Kang MD Electronically signed on 03/10/2023 at 4:28:00 PM Final Normal [facility] CARDIAC STRESS/REST INJE CTIONon 03-09-2023 [facility] CARDIAC STRESS/REST INJECTION Patient Name: SVETLANA SILVA STUDY: MYOCARDIAL PERFUSION STRESS TEST WITH LEXISCAN Performing facility: [facility], [address] [place] [address], [address], [place], [place] [address] Provider: Benny Kang MD PCP: Dr. David Allan Supervising provider: Polina Palomino MD, [facility] INDICATION: Dyspnea HISTORY: Gender: F; Age: 67 y/o ; Height: 0 cm; Weight: 0 kg. High Cholesterol; HTN; SOB; COPD; Emphysema Quit smoking 3.5 years ago. COMPARISON: No comparison. 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 : dyspnea Overweight with body mass index (BMI) of 26 to 26.9 in adult Healthy Weight Tips; Status:Complete; Done: 76Gpq8586 Some eating tips that can help you lose weight.; Status:Complete; Done: 77Zyy9704 SocHx: Former smoker Tobacco Use Screening; Status:Complete; Done: 82Jom1367 Patient Instructions Please bring all medicines, vitamins, [...] no sei (more content not included)... Normal [facility] Tobacco Screening.on 023 Adult depression screening assessment No [facility] y 250 DO Work Phone: Fall risk assessment b) One or more fall s in the last year [facility] [place] y 250 DO Work Phone: Tobacco use status CPHS b) No [facility] [facility] 250 DO Work Phone: [...] by: FRANCIS ANDERSON Date: 2022-10-17 15:20 Normal [facility] CT LUNG CANCER SCREENINGon 0 [...] THERESA LUCIA Date: 2022-08-17 07:32 Normal [facility] PROF 14(COMP METB)on 022 Albumin [Mass/Vol] 3.9 g/dL Normal 3.4-5.0 [facility] Comment on above: Performed By: #### C MP #### [facility] [address] [place] [address] Dr. Shelby Rodriguez Albumin/Globulin [Mass ratio] 1.2 {ratio} Normal [facility] Comment on above: Performed By: #### C MP #### [facility] [address] [place] [address] [address] Shelby Rodriguez ALP [Catalytic activity/Vol] 60 U/L Normal 46-116 [facility] Comment on above: Performed By: #### C MP #### [facility] [address] [place] [address] [address] Shelby Rodriguez ALT [Catalytic activity/Vol] 35 U/L Normal 14-59 [facility] Comment on above: Performed By: #### C MP #### [facility] [address] [place] [address] [address] Shelby Rodriguez Anion gap [Moles/Vol] 10.3 mmol/L Normal [facility] Comment on above: Performed By: #### C MP #### [facility] [address] [place] [address] [address] Shelby Rodriguez AST [Catalytic activity/Vol] 22 U/L Normal 15-37 [facility] Comment on above: Performed By: #### C MP #### [facility] [address] [place] [address] [address] Shelby Rodriguez Bilirubin [Mass/Vol] 0.5 mg/dL Normal 0.2-1.0 [facility] Comment on above: Performed By: #### C MP #### [facility] [address] [place] [address] [address] Shelby Rodriguez Calcium [Mass/Vol] 9.4 mg/dL Normal 8.5-10.1 [facility] Comment on above: Performed By: #### C MP #### [facility] [address] [place] [address] [address] Shelby Rodriguez Chloride [Moles/Vol] 105 mmol/L Normal 98-107 [facility] Comment on above: Performed By: #### C MP #### [facility] [address] [place] [address] [address] Shelby Rodriguez CO2 [Moles/Vol] 30.5 mmol/L Normal 21.0-32.0 [facility] Comment on above: Performed By: #### C MP #### [facility] [address] [place] [address] [address] Shelby Rodriguez Creatinine [Mass/Vol] 0.87 mg/dL Normal 0.55-1.02 [facility] Comment on above: Performed By: #### C MP #### [facility] [address] [place] [address] [address] Shelby Rodriguez EGFR-AF OMANI >60 Normal >=60 [facility] Comment on above: Performed By: #### C MP #### [facility] [address] [place] [address] [address] Shelby Rodriguez EGFR-NON AF OMANI >60 Normal >=60 [facility] Comment on above: Performed By: #### C MP #### [facility] [address] [place] [address] [address] Shelby Rodriguez Globulin (S) [Mass/Vol] 3.2 g/dL Normal [facility] Comment on above: Performed By: #### C MP #### [facility] [address] [place] [address] [address] Shelby Rodriguez Glucose [Mass/Vol] 122 mg/dL Critically high 74-106 [facility] Comment on above: Performed By: #### C MP #### [facility] [address] [place] [address] [address] Shelby Rodriguez Potassium [Moles/Vol] 4.8 mmol/L Normal 3.5-5.1 [facility] Comment on above: Performed By: #### C MP #### [facility] [address] [place] [address] [address] Shelby Rodriguez Protein [Mass/Vol] 7.1 g/dL Normal 6.4-8.2 [facility] Comment on above: Performed By: #### C MP #### [facility] [address] [place] [address] [address] Shelby Rodriguez Sodium [Moles/Vol] 141 mmol/L Normal 136-145 [facility] Comment on above: Performed By: #### C MP #### [facility] [address] [place] [address] [address] Shelby Rodriguez Urea nitrogen [Mass/Vol] 14.0 mg/dL Normal 7.0-18.0 [facility] Comment on above: Performed By: #### C MP #### [facility] [address] [place] [address] [address] Shelby Rodriguez Urea nitrogen/Creatinine [Mass ratio] 16.1 mg/mg Normal [facility] Comment on above: Performed By: #### C MP #### [facility] [address] [place] [address] [address] Shelby Rodriguez Vital Signs Date Time Vital Sign Value Performing Clinician Facility 02-01-2024 13:20-0400 Body temperature 98.6 [degF] Lin Lue [facility] 02-01-2024 13:20-0400 Diastolic blood pressure 61 mm[Hg] Lin Lue [facility] 02-01-2024 13:20-0400 Heart rate 72 /min Lin Lue [facility] 02-01-2024 13:20-0400 Respiratory rate 16 /min [facility] Lue [facility] [facility] 02-01-2024 13:20-0400 Systolic blood pressure 125 mm[Hg] Lin Lue [facility] 11-28-2023 15:41-0400 Body height 149.9 cm Benny Kang MD Work Phone: [facility] 11-28-2023 15:41-0400 Body mass index (BMI) [Ratio] 25.45 kg/m2 Benny Kagn MD Work Phone: [facility] 11-28-2023 15:41-0400 Body weight 57.15 kg Benny Kang MD Work Phone: [facility] 11-28-2023 15:41-0400 Diastolic blood pressure 80 mm[Hg] Benny Kang MD Work Phone: [facility] 11-28-2023 15:41-0400 Heart rate 66 /min Benny Kang MD Work Phone: [facility] 11-28-2023 15:41-0400 Systolic blood pressure 130 mm[Hg] Benny Kang MD Work Phone: [facility] 09-24-2023 18:05-0500 Body height 149.9 cm Shaikh Jerrell SINGLETARY Work Phone: [facility] 09-24-2023 18:05-0500 Body mass index (BMI) [Ratio] 24.64 kg/m2 Shaikh Jerrell SINGLETARY Work Phone: [facility] 09-24-2023 18:05-0500 Body temperature 97 [degF] Shaikh Jerrell SINGLETARY Work Phone: [facility] 09-24-2023 18:05-0500 Body weight 55.34 kg Shaikh Jerrell SINGLETARY Work Phone: [facility] 09-24-2023 18:05-0500 Diastolic blood pressure 80 mm[Hg] Shaikh Jerrell SINGLETARY Work Phone: [facility] 09-24-2023 18:05-0500 Heart rate 90 /min Shaikh Jerrell SINGLETARY Work Phone: [facility] 09-24-2023 18:05-0500 SaO2% (BldA) [Mass fraction] 97 % Shaikh Jerrell SINGLETARY Work Phone: [facility] 09-24-2023 18:05-0500 Systolic blood pressure 132 mm[Hg] Shaikh Jerrell SINGLETARY Work Phone: [facility] 03-30-2023 10:39-0400 Body height 149.86 cm Shaikh Jerrell Work Phone: [facility] 250 DO Work Phone: 03-30-2023 10:39-0400 Body mass index (BMI) [Ratio] 26.86 kg/m2 Shaikh Jerrell Work Phone: [facility] 250 DO Work Phone: 03-30-2023 10:39-0400 Body surface area Derived from formula 1.55 m2 Shaikh Jerrell Work Phone: [facility] 250 DO Work Phone: 03-30-2023 10:39-0400 Body weight 60.33 kg Shaikh Mary Bethwwad Work Phone: [facility] 250 DO Work Phone: 03-30-2023 10:39-0400 Diastolic blood pressure 70 mm[Hg] Khan Fawwad Work Phone: [facility] DO Work Phone: 03-30-2023 10:39-0400 Heart rate 76 /min Shaikh Chikawad Work Phone: [facility] DO Work Phone: 03-30-2023 10:39-0400 Systolic blood pressure 122 mm[Hg] Khan Fawwad Work Phone: [facility] DO Work Phone: 01-26-2023 11:30-0400 Diastolic blood pressure 92 mm[Hg] Khan Fawwad Work Phone: [facility] 250 DO Work Phone: 01-26-2023 11:30-0400 Systolic blood pressure 164 mm[Hg] Khan Fawwad Work Phone: [facility] DO Work Phone: 01-26-2023 11:29-0400 Body height 149.86 cm Khan Mary Bethwwad Work Phone: [facility] 250 DO Work Phone: 01-26-2023 11:29-0400 Body mass index (BMI) [Ratio] 26.66 kg/m2 Khan Fawwad Work Phone: [facility] DO Work Phone: 2023 11:29-0400 Body surface area Derived from formula 1.55 m2 Shaikh Jerrell Work Phone: [facility] DO Work Phone: 01-26-2023 11:29-0400 Body weight 59.88 kg Shaikh Jerrell Work Phone: [facility] DO Work Phone: 01-26-2023 11:29-0400 Diastolic blood pressure 100 mm[Hg] Shaikh Jerrell Work Phone: [facility] DO Work Phone: 01-26-2023 11:29-0400 Heart rate 91 /min Shaikh Jerrell Work Phone: [facility] DO Work Phone: 01-26-2023 11:29-0400 Systolic blood pressure 184 mm[Hg] Shaikh Jerrell Work Phone: [facility] DO Work Phone: Encounters Encounter Date Encounter Type Care Provider Facility Start: 02-01-2024 End: 02-01-2024 ambulatory Lin Dalton Facility:[facility] Start: 02-01-2024 End: 02-01-2024 Patient encounter procedure Lin Dalton [facility] Start: 01-31-2024 End: 01-31-2024 ambulatory KHANMARILU ALLAN Not Available Start: 01-23-2024 End: 01-23-2024 ambulatory Lin Dalton [facility] Work Phone: Start: 01-23-2024 End: 01-23-2024 Departed Referred MD Lin Dalton Work Phone: [facility] Start: 01-23-2024 End: 01-23-2024 ambulatory Lin Dalton Facility:CD:[id number] Start: 01-21-2024 End: 01-21-2024 ambulatory Lin Dalton Facility:[facility] Start: 01-21-2024 End: 01-21-2024 Patient encounter procedure Lin Dalton [facility] Start: 01-17-2024 End: 01-17-2024 Lab Drop off Lin Dalton [facility] Start: 01-17-2024 End: 01-17-2024 ambulatory Lin Dalton Facility:[facility] Start: 01-17-2024 End: 01-17-2024 Patient encounter procedure Lin Dalton [facility] Start: 01-14-2024 ambulatory Lin Dalton Facility:[facility] Start: 12-31-2023 End: 12-31-2023 ambulatory SHAIKH JERRELL Not Available Start: 11-28-2023 End: 11-28-2023 ambulatory [facility] Start: 11-28-2023 End: 11-28-2023 Office outpatient visit 15 minutes Benny Kang MD Work Phone: [facility] Comment on above: Shortness of breath (Primary Dx); Essential hypertension; Mixed hyperlipidemia; Hlctc-8-auotimbmlym deficiency (Multi); Centrilobular emphysema (Multi); Former smoker; [...] encounter procedure Shaikh Jerrell SINGLETARY Work Phone: [facility] Start: 08-02-2023 End: 08-02-2023 ambulatory SHAIKH JERRELL Not Available Start: 03-30-2023 Office outpatient vi sit 15 minutes Shaikh Jerrell Work Phone: [facility] DO Work Phone: Start: 03-30-[address] Benny Kang Facility: Start: 03-11-2023 Chart Update Shaikh Jerrell Work Phone: [facility] DO Work Phone: Start: 03-10-2023 Chart Update Shaikh Jerrell Work Phone: [facility] DO Work Phone: Start: 03-09-[address] Benny Kang Facility:[id number] Start: 01-26-2023 Office consultation new/estab patient 60 min Shaikh Jerrell Work Phone: [facility] DO Work Phone: Start: [...] procedure 09/02/2024 1:30 PM EST Office Visit [facility] [address] [facility] [address] [place] [address] Benny Kang MD [address] [facility] [address] [place] [address] [facility] Start: 08-02-2024 Medicare Annual Well ness (AWV) Medicare Annual Wellness (AWV) [facility] Start: 03-04-2024 Screening for malign ant neoplasm of breast Mammogram [facility] Start: 02-29-2024 ambulatory Ambulatory Facility:[facility] Start: 11-22-2023 End: 11-22-2023 Patient encounter procedure 11/22/2023 11:30 AM EDT Office Visit [facility] [address] [place] [address] Shaikh Allan MD [address] [place] [id number] [facility] Start: 10-05-2023 FUV, Provider: Benny Kang, Status: Pen, Time: 9:20 AM FUV, Provider: Benny Kang, Status: Pen, Time: 9:20 AM [facility] 250 DO Work Phone: Start: 09-24-2023 End: 09-24-2023 Patient encounter procedure 09/24/2023 5:45 PM EST Office Visit [facility] [address] [place] [address] Shaikh Allan MD [address] [place] [id number] [facility] Start: 04-13-2023 COVID-19 Vaccine ( season) COVID-19 Vaccine ( season) [facility] Start: 03-30-2023 FUV, Provider: Benny Kang, Status: Pen, Time: 10:30 AM FUV, Provider: Benny Kang, Status: Pen, Time: 10:30 AM [facility] 250 DO Work Phone: Start: 03-09-2023 ECHO, Provider: JOHN PAUL CHANEL [facility]VI ULTRASOUND ,[id number], Status: Pen, Time: 10:45 AM ECHO, Provider: XENIA [facility] ULTRASOUND 01,[id number], Status: Pen, Time: 10:45 AM [facility] 250 DO Work Phone: Start: 03-09-2023 STRESS NUC, Provider : XENIA PINOI NUCLEAR 01,[id number], Status: Pen, Time: 8:30 AM STRESS NUC, Provider: XENIA JOHN NUCLEAR 01,[id number], Status: Pen, Time: 8:30 AM [facility] 250 DO Work Phone: Start: 04-26-2021 DTaP/Tdap/Td Vaccine s (1 - Tdap) DTaP/Tdap/Td Vaccines (1 - Tdap) [facility] Start: 2013 Hepatitis B Vaccines (1 of 3 - Risk 3-dose series) Hepatitis B Vaccines (1 of 3 - Risk 3-dose series) [facility] Start: 1993 Screening for malign ant neoplasm of breast Mammogram [facility] Start: 1972 Hepatitis A Vaccines (1 of 2 - Risk 2-dose series) Hepatitis A Vaccines (1 of 2 - Risk 2-dose series) [facility] Start: 1971 Diabetes mellitus screening Diabetes Screening [facility] Start: 1971 Hepatitis C screening Hepatitis C Sc reening [facility] Start: 1953 Lipid panel Lipid Panel [facility] Start: 1953 Medicare Annual Well ness Visit Medicare Annual Wellness Visit (AWV) [facility] Start: 1953 Screening for malign ant neoplasm of colon [facility] Start: 1953 Screening for osteoporosis Bone Density Scan [facility] Immunizations Immunization Date Immunization Notes Care Provider Fa cili 05-26-2023 ABRYSVO - Respirator y syncytial virus (RSV), vaccine, bivalent, protein subunit RSV prefusion F, diluent reconstituted, 0.5 mL, PF Shaikh Jerrell SINGLETARY Work Phone: [facility] 05-24-2023 influenza virus vaccine, unspecified formulation Lin Dalton [facility] 05-24-2023 Influenza, High-dose Seasonal, Quadrivalent, Preservative Free Shaikh Jerrell SINGLETARY Work Phone: [facility] 05-24-2023 Pneumococcal Conjuga te PCV 20 Shaikh Jerrell SINGLETARY Work Phone: [facility] 05-03-2023 pneumococcal conjuga te 20-valent (Prevnar 20) 0.5 ML vaccine Shaikh Jerrell SINGLETARY Work Phone: [facility] 10-27-2022 zoster vaccine recombinant Khan Fawwaalvin Work Phone: [place] [address] DO Work Phone: 08-27-2022 zoster vaccine recombinant Khan Mary Bethwwaalvin Work Phone: [place] [address] DO Work Phone: 06-03-2022 Fluzone High-Dose Quadrivalent 0.7 ML Intramuscular Suspension Prefilled Syringe [employer]aneDreams Edusoftwaalvin Work Phone: [place] [address] DO Work Phone: 06-03-2022 influenza virus vaccine, unspecified formulation Lin Dalton [facility] 06-03-2022 influenza, seasonal, injectable Benny Kang MD Work Phone: [facility] Work Phone: 08-03-2021 Pfizer-BioNTech COVID-19 Vacc 30 MCG/0.3ML Intramuscular Suspension Khan Fawwaalvin Work Phone: [facility] 06-02-2021 Fluzone High-Dose Quadrivalent 0.7 ML Intramuscular Suspension Prefilled Syringe Khan Fawwaalvin Work Phone: [facility] 250 DO Work Phone: 06-02-2021 influenza virus vaccine, unspecified formulation Lin Lue [facility] 04-25-2021 diphtheria, tetanus toxoids and pertussis vaccine Shaikh Jerrell Work Phone: [facility] 04-25-2021 tetanus and diphther ia toxoids, adsorbed, preservative free, for adult use (2 Lf of tetanus toxoid and 2 Lf of diphtheria toxoid) Benny Kang MD Work Phone: [facility] Work Phone: 12-23-2020 Pfizer-BioNTech COVID-19 Vacc 30 MCG/0.3ML Intramuscular Suspension Shaikh Chikawad Work Phone: [facility] 12-02-2020 Pfizer-BioNTech COVID-19 Vacc 30 MCG/0.3ML Intramuscular Suspension Shaikh Chikamarie Work Phone: [facility] 07-21-2014 influenza virus vaccine, unspecified formulation Lin Lue [facility] 07-21-2014 influenza, seasonal, injectable Khan Fawwad Work Phone: [place] [address] DO Work Phone: 06-21-2013 influenza virus vaccine, unspecified formulation Lin Lue [facility] 06-21-2013 influenza, seasonal, injectable Khan Fawwad Work Phone: [facility] 250 DO Work Phone: 08-31-2012 influenza virus vaccine, unspecified formulation Lin Lue [facility] 01-19-2013 influenza, seasonal, injectable, preservative free Shaikh Jerrell Work Phone: -[facility] DO Work Phone: Payers Date Payer Category Payer Self-pay [id number] 2018 Medicare [id number] 1959 Medicare [id number] 1959 Private Health Insurance [facility] 2006 1955 Unknown [id number] 2.16.84 0.1.335661.3.579.2.593 1953 Unknown [id number] 2.16.84 0.1.768498.3.579.2.593 1953 Unknown [id number] 2.16.84 0.1.160724.3.579.2.593 1953 Unknown [id number] 2.16.84 0.1.723821.3.579.2.593 1953 Unknown [id number] 2.16. 840.1.672214.3.579.2.356 1953 Unknown [id number] 2.16. 840.1.494669.3.579.2.356 1953 Unknown [id number] 2.16. 840.1.640630.3.579.2.356 1953 Unknown [id number] 2.16.8 40.1.422638.3.579.2.1068 1953 Unknown [id number] 2.16.8 40.1.652847.3.579.2.1244 1953 Unknown [id number] 2.16.84 0.1.917590.3.579.2.1259 1953 Unknown [id number] 2.16.84 0.1.609304.3.579.2.1259 1953 Unknown [id number] 2.16.84 0.1.259114.3.579.2.1259 1953 Unknown [id number] 2.16.84 0.1.158259.3.579.2.1259 1953 Unknown [id number] 2.16.84 0.1.811876.3.579.2.1259 1953 Unknown [id number] 2.16.840 .1.458332.3.579.2.1259 1953 Unknown [id number] 2.16.8 40.1.970704.3.579.2.727 1953 Unknown [id number] 2.16.8 40.1.445183.3.579.2.727 1953 Unknown [id number] 2.16.8 40.1.178738.3.579.2.727 1953 Unknown [id number] 2.16.8 40.1.891458.3.579.2.727 1953 Unknown [id number] 2.16.8 40.1.051680.3.579.2.727 1953 Unknown [id number] 2.16.8 40.1.902986.3.579.2.727 Medicaid [id number] Private Health Insurance [facility] [id number] Unknown Unknown [id number] 2.16.8 40.1.522499.3.579.2.531 Social History Date Type Detail Facility Start: 08-29-2023 End: 11-28-2023 No caffeine use No caffeine use [place] [address] DO Work Phone: Start: 08-29-2023 End: 02-01-2024 Tobacco smoking status [facility] Ex-smoker [facility] Start: 10-25-2017 End: 06-28-2020 History of tobacco use Current smoker [facility] End: 06-28-2020 History of tobacco use Cigarette Smoker [facility] Start: 08-29-2023 End: 11-28-2023 Tobacco use and exposure Smokeless tobacco non-user [facility] Start: 08-29-2023 End: 11-28-2023 Alcohol intake Lifetime non-drinker (finding) [facility] Start: 08-29-2023 End: 11-28-2023 Tobacco use panel [facility] Start: 07-18-2023 Alcohol Comment caffeine: 1-2 cups per day [facility] Start: 1955 Sex Assigned At Not on file [facility] Start: 11-18-2023 End: 11-28-2023 Exposure to SARS-CoV-2 (event) Not sure [facility] Start: 1955 Sex Assigned At Female [facility] Tobacco smoking status Never [facility] NEGATED: Highlighted rowStart: NINF History of tobacco use Passive smoker [facility] Medical Equipment Procedure Code Equipment Code Equipment Original Text Equipment Identifier Dates Phacoemulsification of cataract with intraocular lens implantation LENS ACRYSOF IOL [id number] FDA Start: 09-27-2017 Phacoemulsification of cataract with intraocular lens implantation LENS ACRYSOF IOL [id number] FDA Start: 10-25-2017 Functional Status Date Assessment Result Facility 02-01-2024 Functional Status N/A [facility] Clinical Notes 01-26-2023 to 02-01-2024 Benny [...] cells. Follow these instructions at home: Take mwlg-uqq-elytyty and prescription medicines only as told by [...] is important. Where to find more information [employer] (ACS): cancer.org National Cancer [place] (NCI): cancer.gov Contact a health care provider [...] provider. Document Revised: 07/10/2022 Document Reviewed: 07/10/2022 [employer] Patient Education 2022 [employer]. Follow Up Care 01/25/2024 10:58:20 With:Sha SINGLETARY, KYLE Aguilera, URO Address: When: Unknown [facility] [place] 01-21-2024 [facility] Discharg e instructions Patient Education 01/21/2024 [...] appointment for TURBT, possible left ureteral stent [facility] 01-21-2024 Note [id number] [facility] 01-21-2024 Note Cystoscopy ? Voiding [...] you have a fever over 100 degrees. [facility] 01-17-2024 [facility] Discharg e instructions Patient Education 01/17/2024 11:15:35 [...] including vitamins, herbs, eye drops, creams, and jdwz-fuy-zwwljqg medicines. Any problems you or family members [...] provider tells you to take them. Taking zqit-sqi-tyvscrr medicines, vitamins, herbs, and supplements. General instructions [...] provider. Document Revised: 08/04/2022 Document Reviewed: 08/04/2022 [employer] Moment Patient Education 2022 [employer]. 01/17/2024 10:58:38 Cystoscopy Cystoscopy Cystoscopy is a [...] including vitamins, herbs, eye drops, creams, and ewlu-gzn-bczckoq medicines. Any problems you or family members [...] provider tells you to take them. Taking luqh-czw-rkaumac medicines, vitamins, herbs, and supplements. Tests You [...] Follow these instructions at home: Medicines Take swjf-hia-okmeerl and prescription medicines only as told by [...] provider. Document Revised: 04/12/2022 Document Reviewed: 03/11/2021 [employer] Patient Education 2022 [employer]. Follow Up Care 01/14/2024 11:56:48 With:Sha SINGLETARY, KYLE Aguilera, URO Address: When: Unknown [facility] 11-28-2023 History of Presen t illness [...] Up In Cardiology 3. Mixed hyperlipidemia 4. Wxjbc-0-dwhzxeeobkj deficiency (Multi) 5. Centrilobular emphysema (Multi) 6. [...] plan. documented in this encounter [facility] Work Phone: 11-28-2023 Instructions Iesha Roper [...] exercise. documented in this encounter [facility] Work Phone: 09-24-2023 History of Presen [...] major depressive disorder without prior episode (HCC) ([facility]/HCC) - Primary Patient was seen last appointment [...] weeks (around 11/05/2023). documented in this encounter [facility] 01-26-2023 History of Presen t illness Narrative [...] function test, lab work and remote echo1.Plan -[facility] [employer] DO Work Phone: Chief complaint Narrative - Reported SVETLANA SILVA is being seen for a consultation for shortness of breath. -[facility] [employer] 250 DO Work Phone: Evaluation + Plan note Future Appointments Appointment Date:01/18/2024 10:30:00 AM Scheduled Provider: Location:[facility] Appointment Type:Urology CALL PAT Appointment Date:01/21/2024 08:00:00 AM Scheduled Provider: Location:[facility] Appointment Type:Urology FT [facility] [place] Evaluation + Plan note Future Appointments Appointment Date:01/18/2024 10:30:00 AM Scheduled Provider: Location:[facility] Appointment Type:Urology CALL PAT FT Appointment Date:01/21/2024 08:00:00 AM Scheduled Provider: Location:[facility] Appointment Type:Urology FT Diagnostic Tests PendingUrine Cytology ([facility]) 01/17/24 [facility] Evaluation + Plan note Future Appointments Appointment Date:02/29/2024 09:15:00 AM Scheduled Provider:Lin Dalton MD Location:[facility] Appointment Type:URO Office Visit [facility] Evaluation note Diagnosis Primary hypertension (CMS/HCC)- Primary Unspecified essential hypertension [facility] Current moderate episode of major depressive disorder without prior episode (HCC) (CMS/HCC)- Primary [facility] Diagnosis Shortness of breath- Primary Essential hypertension Unspecified essential hypertension Mixed hyperlipidemia Wvjpl-9-agdujglkofq deficiency (Multi) Zqkpo-8-xwfioqxlzjd deficiency Centrilobular emphysema (Multi) Former smoker Personal history of tobacco use, presenting hazards to health BMI 25.0-25.9,adult documented in this encounter [facility] Work Phone: Evaluation noteNo assessment information available [facility] Work Phone: History of Present illness Narrative* [...] her back in 6 months and follow-up [facility] Work Phone: Hospital course Narrative No data available for this section [facility] Hospital Discharge instructions No data available for this section [facility] No data available for this section [facility] Reason for referral (narrative)* Consultation (Routine) - Authorized Specialty Diagnoses / Procedures Referred By Joelle t Referred To Contact Cardiology Diagnoses Essential hypertension Procedures Follow Up In Cardiology Benny Kang MD [address] [place] [address], [address] [address] Benny Kang MD [address] [place] [address] 2, [address] [address] Referral ID Status Reason Start Date Expiration Date V isits Requested Visits Authorized [id number] Authorized 11/28/2023 11/27/2024 1 1 T [facility] Work Phone: Summary Purpose Family History [...] DATE CREATED AUTHOR AUTHOR'S ORGANIZ ATION 03/31/2023 [facility] DATE CREATED AUTHOR AUTHOR'S ORGANIZ ATION 03/31/2023 [facility] DATE CREATED AUTHOR AUTHOR'S ORGANIZ ATION 04/13/2023 [facility] DATE CREATED AUTHOR AUTHOR'S ORGANIZ ATION 11/30/2023 [facility] DATE CREATED AUTHOR AUTHOR'S ORGANIZ ATION 02/01/2024 [facility] DATE CREATED AUTHOR AUTHOR'S ORGANIZ ATION 02/01/2024 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 [email or web address] provides no warranty or guarantee of the accuracy or completeness of information in this document.
--- NOTE | 2024-03-10 09:08 | MM_ITS ---
Patient Name: ANGELITA ADRIAN MR#: [id number] : 1955 Exam Date: 03/10/2024 Ordering Doctor: SHAIKH Andrzej NORTON . RADIOLOGY REPORT PROCEDURE: MM TOMOSYNTHESIS SCREENING BI COMPARISON: MM TOMOSYNTHESIS SCREENING BI, 03/07/2023. MG MAMM SCREEN 3D ALVA CAD, 07/18/2021. MG MAMM RT DIAG W CAD, 02/25/2019. MG MAMM ALVA SCRN W CAD DIG, 09/15/2002. INDICATIONS: Screening Calculator Name NCI Breast Cancer Risk Assessment Tool 5 Year Breast Cancer Risk 1.20% Lifetime Breast Cancer Risk 3.70% Personal Breast Cancer No Personal Ovarian Cancer No Treatments None Family Cancers Grandmother-maternal with breast cancer at age ~63; Aunt-maternal with breast cancer at age ~31; Mother with ovarian cancer at age 27; Grandmother-paternal with colon? cancer at age ~68; Grandfather-paternal with lung cancer at age ~60; Father with lung cancer at age ~60. LOCATION: [facility] BREAST COMPOSITION: The breasts are heterogeneously dense,which may obscure small masses. FINDINGS: DIAGNOSTIC CATEGORY 2--BENIGN FINDING: RIGHT BREAST: No significant suspicious finding. Scattered benign-appearing calcifications are present. Scattered benign-appearing lymph nodes are present. No significant change has occurred. LEFT BREAST: No significant suspicious finding. Scattered benign-appearing calcifications are present. No significant change has occurred. RECOMMENDATIONS: ROUTINE MAMMOGRAM AND CLINICAL EVALUATION IN 12 MONTHS. PLEASE NOTE: A NORMAL MAMMOGRAM DOES NOT EXCLUDE THE POSSIBILITY OF BREAST CANCER. A CLINICALLY SUSPICIOUS PALPABLE LUMP SHOULD BE BIOPSIED. Dictated by: Shahid Flores M.D. on 03/10/2024 at 16:11 Approved by: Shahid Flores M.D. on 03/10/2024 at 16:14
--- OUTSIDE RECORDS SUMMARY | 2024-03-10 09:11 | XMS_ITS | CCD ---
Author Organization [facility] CliniSyky Care Team Providers Care Quantitative Analyst Name Role Phone FAWWAD, KHAN H Admitting Unavailable FAWWAD, KHAN H Attending Unavailable FAWWAD, KHAN H Primary Care Unavailable FAWWAD, KHAN H Consulting Unavailable SAMSA ., ÁLVARO Admitting Unavailable SAMSA ., ÁLVARO Attending Unavailable FAWWAD, KHAN H Primary Care Unavailable DR THERESA LUICA Consulting Unavailable SAMSA ., ÁLVARO Consulting Unavailable SAMSA ., ÁLVARO Admitting Unavailable SAMSA ., ÁLVARO Attending Unavailable FAWWAD, KHAN H Primary Care Unavailable SAMSA ., ÁLVARO Admitting Unavailable SAMSA ., ÁLVARO Attending Unavailable FAWWAD, KHAN H Primary Care Unavailable SAMSA ., ÁLVARO Consulting Unavailable FRANCIS ANDERSON Consulting Unavailable Fawwad, Khan Unavailable Unavailable Unavailable [facility], Dr. Álvaro Fritz Referring Unavailab le Traboulangeles, Dr. Velasquez Attending Unavaila ble Trabfariba, Dr. Velasquez Referring Unavaila ble Traboulssi, Dr. Velasquez Attending Unavaila ble Traboulangeles, Dr. Velasquez Referring Unavaila ble Traboulangeles, Dr. Velasquez Attending Unavaila ble Jorge Luis, Dr. Velasquez Attending Unavaila raul Allan MD, [facility] Primary Care Provider [phone] Shaik Allan MDh Primary Care Provider Jerrell SINGLETARY, Khan Primary Care Provider BENNY KANG Attending Unavailable RADHA ALLANIKH Primary Care Unavailable NONE, XXXX Primary Care Physician Unavailab MD Lin Meade Attending Provider Lin Dalton Attending Unavailable Lue, Lin M Admitting Unavailable FAWWAD, KHAN Attending Unavailable FAWWAD, KHAN Attending Unavailable FAWWAD, KHAN Attending Unavailable FAWWAD, KHAN Attending Unavailable FAWWAD, KHAN Attending Unavailable FAWWAD, KHAN Attending Unavailable Lue, Lin M. Admitting Unavailable Lue, Lin M. Referring Unavailable Lue, Lin M. Attending Unavailable Lue, Lin M. Attending Unavailable Lue, Lin M. Admitting Unavailable Lue, Lin M. Attending Unavailable Lue, Lin M. Attending Unavailable Lue, Lin M. Admitting Unavailable Lue, Lin M. Attending Unavailable Lue, Lin M. Referring Unavailable Lue, Lin M. Attending Unavailable Lue, Lin M. Attending Unavailable Allergies Allergy Classification Reported Allergen(s) Allergy Type Date of Onset Reaction(s) Facility Opioid Agonists (4 sources) Codeine; 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: [codeine] Drug Allergy Nausea (finding) [facility] (2 sources) Codeine; 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: [CODEINE] Drug Allergy 7 [facility] (11 sources) Codeine; 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: [Codeine Derivatives] Drug Allergy 9 Nausea Only, GI intolerance, Other, Nausea/vomiting , Nausea (finding) [facility] (1 source) Codeine Drug Allergy 8 [facility] Medications Current Medications Medication Drug Class(es) Dates Sig (Normalized) Sig (Original) acetaminophen 500 mg oral tablet (1 source) Start: 09-25-2017 take 500 mg by mouth every twelve hours Acetaminophen Active 500 MG PO Q12H September 25, 2017 1:00am acetaminophen 325 mg / oxyCODONE hydrochloride 5 mg oral tablet (3 sources) Opioid Agonist Start: 02-01-2024 acetaminophen-oxyco done 325 mg-5 mg Tab Refill(s) 0 Start Date: 02/01/24 Status: Ordered [id number] 200 actuat albuterol 0.09 mg/actuat metered dose [...] takes qfriday amLODIPine 5 mg oral tablet (15 sources) Dihydropyridine Calcium Channel Frederick Start: 09-25-2017 amLODIPine 5 mg Tab 5 mg = 1 tab(s), Daily Start Date: 01/17/24 Status: Ordered arformoterol (13 sources) beta2-Adrenergic Agonist Start: 01-17-2024 arfor moterol [...] DO Active atorvastatin 40 mg oral tablet (15 sources) HMG-CoA Reductase Inhibitor Start: 09-25-2017 atorvastatin 40 mg Tab 40 mg = 1 tab(s), Once a day (at bedtime) Start Date: 01/17/24 Status: Ordered biotin 5 mg oral capsule (3 sources) take 1 capsule by mouth once daily biotin (Biotin 5000) 5 MG capsule Take 5 mg by mouth 1 (one) time each day at the same time 0 Active Budesonide (14 sources) Corticosteroid Start: 01-17-2024 budesonide Start Date: [...] 2017 1:00am Centrum Women 50 Plus Multigummies (6 sources) Start: 01-17-2024 Centrum Women 50 Plus Multigummies Start Date: 01/17/24 Status: Ordered cholecalciferol 0.05 mg oral tablet (4 sources) Vitamin D Start: 09-25-2017 take 1 tablet by mouth once daily Cholecalciferol (Vitamin D3) (Vitamin D3) 2,000 unit Tablet Active 1 TAB PO Daily September 25, 2017 1:00am ciprofloxacin 500 mg oral tablet (3 sources) Quinolone Antimicrobial Start: 02-01-2024 ciprofloxacin 500 mg Tab Refills(s) 0 Start Date: 02/01/24 Status: Ordered Equate Clear-Lax (1 source) Start: 09-25-2017 take 8 [oz_av] by mouth once daily at bedtime Equate Clear-Lax Active 1 CAP PO Daily at bedtime September 25, 2017 1:00am in 8 oz water escitalopram 20 mg oral tablet (11 sources) Serotonin Reuptake Inhibitor Start: 01-17-2024 escitalopram [...] morning. 90 tablet 0 08/23/2023 09/24/2023 Discontinued estradiol 0.1 mg/ml vaginal cream (2 sources) Estrogen Start: 02-29-2024 Estrace 0.1 mg/g Cream See Instructions, 42.5 gm, Refill(s) 6, Apply pea-sized amount around the opening of the urethra and surrounding tissue 3 times per week at night for one month then 2 times per week after for maintenance., [id number], 150, cm, 02/29/24 9:07:00 EDT, Height/Length Dosing, 56, kg, 02/29/24 9:07:00 EDT, Weight Dosing Start Date: 02/29/24 Status: Ordered fluticasone propionate 0.05 mg/actuat metered dose nasal spray (3 sources) Corticosteroid take 2 spray(s) nasal route in the morning fluticasone (Flonase Allergy Relief) 50 MCG/ACT nasal spray Administer 2 sprays into each nostril in the morning. 0 Active gabapentin 300 mg oral capsule (9 sources) Anti-epileptic Agent Start: 01-17-2024 gabapentin 300 mg Cap 300 mg = [...] 1 puff(s) by inhalation twice daily Ipratropium Orlinda (Atrovent Hfa) 17 mcg/actuation HFA aerosol inhaler Active 2 PUFF INHALATION Twice daily September 25, 2017 1:00am ipratropium (Atr ovent HFA) 17 MCG/ACT inhaler Inhale 2 puffs in the morning and 2 puffs at noon and 2 puffs in the evening and 2 puffs before bedtime. 0 Active levoFLOXacin 500 mg oral tablet (2 sources) Quinolone Antimicrobial Start: 02-29-2024 End: 03-07-2024 take 1 tablet by mouth once daily Levaquin 500 mg Tab 500 mg = 1 tab(s), Oral, Daily, X 7 day(s), # 7 tab(s), Refills(s) 0, Pharmacy: [id number], 150, cm, 02/29/24 9:07:00 EDT, Height/Length Dosing, 56, kg, 02/29/24 9:07:00 EDT, Weight Dosing Start Date: 02/29/24 Stop Date: 03/07/24 Status: Ordered losartan potassium 100 mg oral tablet (15 sources) Angiotensin 2 Receptor Frederick Start: 01-17-2024 [...] DO Active meloxicam 7.5 mg oral tablet (15 sources) Nonsteroidal Anti-inflammatory Drug Start: 01-17-2024 meloxicam [...] succinate 100 mg extended release oral tablet (16 sources) beta-Adrenergic Frederick Start: 01-17-2024 take 1 [...] September 25, 2017 1:00am ondansetron 4 mg oral tablet (5 sources) Serotonin-3 Receptor Antagonist Start: 02-29-2024 End: 03-21-2024 take 1 tablet by mouth every six hours as needed for nausea, then take 1 tablet by mouth every six hours as needed for nausea Zofran 4 mg Tab 4 mg = 1 tab(s), Oral, q6hr, PRN Nausea/Vomiting, Take 1 po q6hr as needed, X 21 day(s), # 84 tab(s), Refills(s) 0, Pharmacy: [id number], 150, cm, 02/29/24 9:07:00 EDT, Height/Length Dosing, 56, kg, 02/29/24 9:07:00 EDT, Weight Dosing Start Date: 02/29/24 Stop Date: 03/21/24 Status: Ordered Start: 02-01-2024 ondansetron 4 mg Dis Tab Refills(s) 0 Start Date: 02/01/24 Status: Ordered oxybutynin chloride 5 mg oral tablet (3 sources) Cholinergic Muscarinic Antagonist Start: 02-01-2024 oxybutynin 5 mg Ta b Refills(s) 0 Start Date: 02/01/24 Status: Ordered pantoprazole 40 mg delayed release oral tablet (14 sources) Proton Pump Inhibitor Start: 01-17-[address] Tab 40 mg = [...] Active pramipexole dihydrochloride 0.75 mg oral tablet (14 sources) Nonergot Dopamine Agonist Start: 01-17-2024 take [...] Refills: 0 Ordered: 26-Jan-2023 DO Active predniSONE (6 sources) Start: 01-17-2024 predniSONE 5 m g Tab 5 mg = 1 tab(s), Daily Start Date: 01/17/24 Status: Ordered Yupelri (14 sources) Start: 01-17-2024 take 1 ug by [...] Active traZODone hydrochloride 50 mg oral tablet (6 sources) Serotonin Reuptake Inhibitor Start: 01-17-2024 traZODONE 50 mg Tab 50 mg = 1 tab(s), Once a day (at bedtime) Start Date: 01/17/24 Status: Ordered vitamin b12 1 mg extended release oral tablet (3 sources) Vitamin B12 Cyanocobalamin ( Vitamin B12) 1000 MCG tablet controlled-release Take 1,000 mg by mouth 1 (one) time each day at the same time 0 Active Vitamin E (6 sources) Start: 01-17-2024 vitamin E Oral Start Date: 01/17/24 Status: Ordered Zinc (6 sources) Start: 01-17-2024 Zinc 50 mg Sta rt Date: 01/17/24 Status: Ordered Problems Active Problems Problem Classification Problem Date Documented Date Episodic/Chronic Anxiety disorders (6 sources) Anxiety 01-17-2024 Chronic Appendicitis and other appendiceal conditions (6 sources) Disorder of appendix 01-17-2024 Episodic Cancer of bladder (5 sources) Malignant tumor of urinary bladder; 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: [Malignant neoplasm of bladder, unspecified] Onset: 02-01-2024 Chronic Cataract (6 sources) Cataract 01-17-2024 Chronic Chronic obstructive pulmonary disease and bronchiectasis (17 sources) Centriacinar emphysema; 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: [Other emphysema] Onset: 08-02-2023 08-02-2023 Chronic Disorders of lipid metabolism (17 sources) Mixed hyperlipidemia; 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: [Mixed hyperlipidemia] Onset: 08-02-2023 08-02-2023 Chronic Esophageal disorders (3 sources) Gastroesophageal reflux disease without esophagitis; 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: [Gastro-esophageal reflux disease without esophagitis] Onset: 08-02-2023 08-02-2023 Chronic Essential hypertension (20 sources) Essential (primary) hypertension; 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: [Hypertensive disorder] Onset: 04-20-2022 Chronic Fluid and electrolyte disorders (3 sources) Hypokalemia; 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: [Hypokalemia] Onset: 08-02-2023 08-02-2023 Episodic Genitourinary symptoms and ill-defined conditions (14 sources) Blood in urine; 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: [Gross hematuria] Onset: 01-17-2024 Episodic Mood disorders (11 sources) Moderate major depression, single episode; 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: [Major depressive disorder, single episode, moderate] Onset: 08-02-2023 08-02-2023 Chronic Osteoporosis (6 sources) Osteoporosis 01-17-2024 Chronic Other connective tissue disease (6 sources) Disorder of abdominal wall 01-17-2024 Episodic Other diseases of bladder and urethra (2 sources) Disorder of bladder; 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: [Other specified disorders of bladder] Onset: 01-17-2024 Chronic Other diseases of bladder and urethra (6 sources) Mass of urinary bladder 01-17-2024 Chronic Other hereditary and degenerative nervous system conditions (9 sources) Restless legs; 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: [Restless legs syndrome] [...] nutritional; endocrine; and metabolic disorders (6 sources) Lcfwm-5-nniipykvuzd deficiency; 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: [Ikims-6-kjiumndcvuq deficiency] Onset: 08-30-2023 11-28-2023 Chronic Other nutritional; endocrine; and metabolic disorders (2 sources) Fcbmi-5-wbgwwzagsvj deficiency; 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: [Lwerg-4-sxntuzlekku deficiency (Multi)] Onset: 08-30-2023 Chronic Other nutritional; [...] [COUGH, UNSPECIFIED] Onset: 10-19-2022 Urinary tract infections (5 sources) Urinary tract infectious disease; 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: [Urinary tract infection, site not specified] Onset: 02-01-2024 Episodic Past or Other Problems Problem Classification Problem Date Documented Da te Episodic/Chronic Mood disorders (3 sources) Mood disorders Onset: 08-02-2023 08-02-2023 Unclassified (1 source) COUGH, UNSPECIFIED; 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: [COUGH, UNSPECIFIED] Onset: 10-17-2022 Unclassified (1 source) Onset: 11-28-2023 11-28-2023 Results Test Name Value Interpretation Reference Range Facility C Urineon 03-02-2024 Bacteria identified Cx Nom (U) Microbiology PROCEDURE: Urine Culture [R1] SOURCE: U Random BODY SITE: COLLECTED DATE/TIME: 02/29/2024 09:47 EDT RECEIVED DATE/TIME: 02/29/2024 12:40 EDT START DATE/TIME: 02/29/2024 12:40 EDT FREE TEXT SOURCE: Sha SINGLETARY, Lin Dalton MD, Lin Caldera FINAL REPORTS Final Report [] Verified Date/Time: 03/02/2024 07:38 EDT >100,000 cfu/ml Escherichia coli SUSCEPTIBILITY RESULTS LEGEND: S=Susceptible, N/R=Not Reported, Blank=Data not available, or drug not advisable or tested, I=Intermediate, ESBL=Extended spectrum beta-lactamase, R=Resistant, TFG=Thymidine-depende nt strain, BARRON=Beta-lactamase positive, ARGENTINA=mcg/m;(mg/L), S*=Predicted susceptible interp, R*=Predicted resistant interp EC Antibiotic ARGENTINA Dilutn ARGENTINA Interp Ampicillin >16 R Ampicillin/ 16/8 I Sulbactam Aztreonam <=4 S Cefazolin <=2 S Cefepime <=2 S Ceftazidime <=1 S Ceftazidime/ <=8 S Avibactam Ceftriaxone <=1 S Cefuroxime <=4 S Ciprofloxacin >2 R Ertapenem <=0.5 S Gentamicin <=2 S Levofloxacin >4 R Meropenem <=1 S Nitrofurantoin <=32 S Piperacillin/ <=8 S Tazobactam Tetracycline >8 R Tobramycin <=2 S Trimethoprim/ >2/38 R Sulfa Performing Locations R1: This test was performed at: [facility], [address] [place] [address], [phone] , , [facility] Comment on above: Performed By: #### [id number] #### [facility] [address] [place] [address] Ambulatory Visit Summaryon 0 02-29-2024 Ambulatory Visit Summary Ambulatory Visit Summary SVETLANA SILVA :1955 Visit Date:02/29/2024 Ambulatory Visit Instructions Your Diagnosis Bladder cancer UTI (urinary tract infection) Former smoker Your Care Team Attending Physician - Sha SINGLETARY, Lin Caldera Primary Care Physician - NONE, XXXX This Is Your Medications List Contact prescribing physician if questions or concerns acetaminophen-oxycodo ne (acetaminophen-oxycod one 325 mg-5 mg Tab) amlodipine (amLODIPine 5 mg Tab) arformoterol atorvastatin (atorvastatin 40 mg Tab) budesonide ciprofloxacin (ciprofloxacin 500 mg Tab) escitalopram (escitalopram 20 mg Tab) gabapentin (gabapentin 300 mg Cap) losartan (losartan 100 mg Tab) meloxicam (meloxicam 7.5 mg Tab) metoprolol (metoprolol 100 mg ER Tab) multivitamin with minerals (Centrum Women 50 Plus Multigummies) ondansetron (ondansetron 4 mg Dis Tab) oxybutynin (oxybutynin 5 mg Tab) pantoprazole (Pantoprazole [address] Tab) pramipexole (pramipexole 0.75 mg oral tablet) predniSONE (predniSONE 5 mg Tab) revefenacin (Yupelri) trazodone (traZODONE 50 mg Tab) vitamin E zinc sulfate (Zinc) Procedures Performed TURBT - Transurethral resection of bladder tumor (01/23/2024), Cystoscopy normal (01/21/2024), Partial hysterectomy. Discharge Vitals Heart Rate (Peripheral) 64 Respiratory Rate 16 Blood Pressure 142/86 Height 150 cm Height 59 in Weight 56 kg Weight 123.2 lb BMI 24.89 What to do next You Need to Schedule the Following Appointments Follow Up with Sha SINGLETARY, KYLE Aguilera, URO When: Where: Someone Will Contact You Regarding These Appointments [facility] External Ambulatory Referral, Service not offered at [facility], Urology, Dr. Ware @ [facility], 02/29/24 9:34:00 EDT, Bladder cancer Medications What How Much When Instructions Unchanged acetaminophen-oxycodo ne (acetaminophen-oxycod one 325 mg-5 mg Tab) Contact prescribing physician if questions or concerns Unchanged amlodipine (amLODIPine 5 mg Tab) 1 Tablets Every day Contact prescribing physician if questions or concerns Unchanged arformoterol Nebulized inhalation (aerosol) Contact prescribing physician if questions or concerns Unchanged atorvastatin (atorvastatin 40 mg Tab) 1 Tablets Once a day (at bedtime) Contact prescribing physician if questions or concerns Unchanged budesonide Contact prescribing physician if questions or concerns Unchanged ciprofloxacin (ciprofloxacin 500 mg Tab) Contact prescribing physician if questions or concerns [...] prescribing physician if questions or concerns Unchanged ondansetron (ondansetron 4 mg Dis Tab) Contact prescribing physician if questions or concerns Unchanged oxybutynin (oxybutynin 5 mg Tab) Contact prescribing physician if questions or concerns [...] receiving treatment for. Anxiety Appendix disease Bladder cancer Bladder mass Cataract Chronic obstructive pulmonary disease (COPD) Depressed Former smoker Gross hematuria Hematuria Hernia of abdominal wall Hyperlipidemia Hypertension Osteoporosis Restless leg UTI (urinary tract infection) Patient Survey You may receive a survey via text or e-mail asking about your office visit. Please share your experience with us by completing your survey. We appreciate your feedback and thank you for choosing us for your care. Education Materia (more content not included)... Normal [facility] Urology Office/Clinic Noteon 02-29-2024 Urology Office/Clinic Note Urology Office/Clinic Note Chief Complaint 1 month follow up HPI Staff 1 month follow up to discuss tx options Previous Dx: bladder mass, gross hematuria, former smoker, gross hematuria Pt states she gets nauseous in the morning Dysuria: yes having pain and burning started a couple of days ago Incomplete bladder emptying: denies Hematuria: denies visible blood, UA shows SMALL Frequency: sometimes Urgency: sometimes Nocturia: 3-4x a night Stream: stream varies Leaking: yes Post void dripping: denies Wearing pads/ Depends: yes wears pads daily, changes every hour Urge incontinence: yes Stress incontinence: yes Incontinence without Sensory Awareness: sometimes Abdominal pain: sometimes Flank pain: yes bilateral flank pain Sexual complaints: denies History of Present Illness Tests reviewed: reviewed UA I have reviewed the previous health record information and history for this patient from Dr. Dalton. I have reviewed and verified the staff HPI to be accurate for this encounter. Review of Systems PHQ Score Initial Depression [...] See HPI. Physical Exam Vitals & Measurements HR: 64(Peripheral) RR: 16 BP: 142/86 HT: 59 in HT: 150 cm WT: 56 kg WT: 123.2 lb BMI: 24.89 General Appearance: alert , no acute distress, well nourished, well developed female. Assessment/Plan Svetalna is a 68 yo female who presented with gross hematuria and suspected bladder mass s/p TURBT here for follow up - newly diagnosed high grade muscle invasive bladder cancer Pt accompanied by an adult female and adult male. Hx of COPD. Not currently on oxygen. States her stats are in the 90s. [1] Hx of partial hysterectomy. [2] BBS 22 (16). Pt is accompanied by a female adult and a male adult. 1. Bladder cancer (C67.9: Malignant neoplasm of bladder, unspecified) CT AP w con 01/17/24 [facility] - Irregular 4.8 cam mass along the L bladder wall. CXR 01/17/24 - No acute process. S/p TURBT 01/23/24 - High grade urothelial carcinoma with lamina propria and muscularis propria invasion. We discussed pathology report, treatment and management [...] rates of radical cystectomy between 48 and 74%. Rates of high grade complications are 10 - 15%. Common risks of the procedure are bleeding, infection, and ileus. Less common but more significant complications are rectal injury requiring colostomy and obturator nerve injury. Common post operative complications are pneumonia, wound infection, DVT and PE. Readmission rates for radical cystectomy are approximately 25% within 30 days. Risks/benefits and post-op discussed. We discussed alternative treatment options including bladder preservation by combined-modality therapy. This therapy includes extensive endoscopic resection, radiation, and chemotherapy. By literature review radical cystectomy has improved cancer specific survival and overall survival by at least 10-15%. This data is limited by difficulty with direct stage and grade comparison. Risks/benefits discussed. Pt open to neoadjuvant chemotherapy, will defer to Dr. Ware for final planning. Now willing to move forward with radical cystectomy at [facility]. -Will refer to Dr. Ware at [facility] for robotic radical cystectomy. -Start Zofran 4mg q6hrs prn for nausea/vomiting 2. UTI (urinary tract infection) (N39.0: Urinary tract infection, site not specified) Recently went to [facility], after TURBT, due to UTI, bladder pain radiating to back. Took oxybutynin but pain didn't improve so presented to ER. Currently taking cipro, UCx pseudomonas is sensitive to it. side seam tender around suprapubic region. Azo helps slightly. Symptoms improving CT AP 01/30/24 at [facility]- bladder wall thickening/ possible cystitis (on review, likely from malignancy/recent TURBT, no evidence of perforation or hydro). UA today shows small blood, + nitrates, and large leuks. Burning starting to recur. Recommended cranberry supplement for UTI prevention. Discussed starting estrogen cream to help with vaginal atrophy and UTI prevention. -Urine sent for cul (more content not included)... Normal [facility] Comment on above: Result Comment: Elec tronically Signed By: Lin Dalton MD\.gallito\Date and Time Signed: 02/29/24 10:06 EDT\.br\Electronically Co-Signed By: Myrna Goodrich\Date and Time Co-Signed: 02/29/24 09:46 EDT [place] 02-04-2024 Screens [id number] .00TIFF Normal [facility] Pathology Noteon 02-01-2024 Pathology Note [id number] .00TIFF Normal [facility] Patient Educationon 02-01-20 Patient Education Oncology Bladder [...] Follow these instructions at home: ? Take nndk-ksc-ycaxoke and prescription medicines only as told by [...] important. Where to find more information ? [place] [employer] (ACS): cancer.org ? [employer] (NCI): cancer.gov Contact a health care provider [...] you have wi (more content not included)... Normal [facility] Provider Letteron 02-01-2024 Provider Letter February 01, 2024 SVETLANA KAYLAH [address] [place] [address] : 1955 To Whom It May Concern, Please excuse Jahaira Silva from patient from work due today 02/01/2024 due to accompanying her mother to and from her appointment. If you have any questions feel free to reach out at the number listed below. Sincerely, [facility] [address] [place] [address] Normal [facility] Urology Office/Clinic Noteon 02-01-2024 Urology Office/Clinic Note Chief Complaint Pt is here for PO TURBT HPI Staff F/u to review path report from TURBT done 01/23/24. Last seen in office 01/17/24. Dx: bladder mass, gross hematuria, former smoker. CT AP w con and CXR done 01/17/24 at [facility]. S/p cysto done 01/21/24. Dysuria: mild [...] chemotherapy. We discussed that there are no osxh-wf-xdko trials comparing cystectomy with bladder preservation therapy. [...] infection, site not specified) Recently went to [facility], after TURBT, due to UTI, bladder pain radiating to back. Took oxybutynin but pain didn't improve so presented to ER. Currently mirta (more content not included)... Normal [facility] Comment on above: Result Comment: Elec tronically Signed By: Lin Dalton MD\.br\Date and Time Signed: 02/01/24 16:30 EDT\.br\Electronically Co-Signed By: Sana Patricia\.br\Date and Time Co-Signed: 02/01/24 14:04 EDT Lab Reportson 01-24-2024 Lab Reports [id number] #1.00TIFF Normal [facility] Operative Reporton Operative Report [id number]. 00TIFF Normal [facility] RAD - MISCon 01-24-2024 RAD MIS [id number] .00TIFF Normal [facility] MIS [id number] .00TIFF Normal [facility] [id number]. 00TIFF Normal [facility] Clay 01-23-2024 L Specimen: [id number] Received: 01/24/24 Status: DAKOTAH Chase Num: [id number] Spec Type: Surgical Subm Dr: Lin Dalton MD Tissues: A Urinary Bladder - TUR (BLADDER TUMORS) Procedures: HE/10, Gross/Micro L5 Age/ Patient Sex Location Account Attending Physician Svetlana Silva 68/F LABELL [id number] Lin Dalton MD SPEC NUM: [id number] RECD: 01/24/24 STATUS: [facility] NUM: [id number] JULIA: 01/23/[address]: Lin Dalton MD ENTERED: 01/24/24 [facility] DR: Keivn Doe SPEC TYPE: Surgical DEPT: STEPHANY LOVE ORDERED: HE/10, Gross/Micro L5 ORDERED: HE/10, Gross/Micro L5 Pathological Diagnosis Bladder mass, transurethral [...] representatively submitted in cassettes A1?A5. CPT Codes 33617 -------- -------- Specimen: [id number] Received: 01/24/24 Status: DAKOTAH Chase Num: [id number] Spec Type: Surgical Subm Dr: Lin Dalton MD Tissues: A Urinary Bladder - TUR (BLADDER TUMORS) Procedures: /10, Gross/Micro L5 -------- Patient: Svetlana Silva [id number] (Continued) -------- Signed (signature on file) Pasquale Brumfield MD 01/30/24 1417 Normal [facility] Consent for Procedure/Surger yon 01-22-2024 Consent for Procedure/Surgery [id number]. 00TIFF Normal [facility] Urine Cytology ([facility])on 0 01-22-2024 Microscopic exam Cytology (U) [Interp] Diagnosis Info Invalid Interpretation Code [facility] Comment on above: Result Comment: A:Ur ine,Urine:Voided Interpretation - MicroScopic Description - Adequacy - Gross Description Site ID:A color Yellow fixative Alcohol Specimen designated Urine received in alcohol preservative and labeled with the patient?s name, consists of 90ml slightly cloudy yellow fluid. Electronically signed by : on: 01/22/2024 15:40:59 Performed By: #### 1 [id number] #### [facility] Laboratory [address] [place], [place] [id number] Consent for Procedure/Surger yon 01-21-2024 Consent for Procedure/Surgery [id number] .00TIFF Normal [facility] Consent for Procedure/Surgery [id number]#1. 00TIFF Normal [facility] Consent for Treatmenton 01-11 Consent for Treatment [id number] .00TIFF Normal [facility] Inpatient Patient Summaryon 01-21-2024 Inpatient Patient Summary [address] [address] Clinical Summary Person Information Name: SVETLANA SILVA Age: 68 Years : 1955 Sex: Female PCP: NONE, XXXX Marital Status: Race: White Ethnicity: Non- or Language: Trinidadian Visit Id: Visit Reason: BLADDER MASS Speciality: Acuity: Enc Type: Outpatient Med Service: Surgery Arrival: 01/21/2024 08:15:39 Discharge: Dispo Type: Address: [address] [place] [id number] Provider Notes: Diagnosis: Bladder mass; Gross hematuria [...] Information: EU - Cystoscopy Discharge Instructions (CUSTOM) [facility] IntraOperative Documentson 0 01-21-2024 IntraOperative Documents [id number] .00TIFF Normal [facility] Main OR Intraoperative Recor don 01-21-2024 Main OR Intraoperative Record IntraOp Document Type FTURO Summary Primary Physician: Lin Dalton MD Finalized Date/Time: 01/21/24 08:55:32 Pt. Name: SVETLANA SILVA /Sex: 1955 Female Med Rec #: [id number] Physician: Lin Dalton MD Financial #: [id number] Pt. Type: O Room/Bed: / Admit/Disch: 01/21/24 [...] Laura C Role Performed Surgeon - Primary Music Coordinator - Primary Scrub - Primary Time In [...] MASS Outcomes Met? Yes Last Modified By: Jesscia Goodrich 01/21/24 08:38:37 Post-Care Text: The patient [...] Position Verified Availability Equipment, Medication Time Out Sha SINGLETARY, Lin Caldera, Verified (If Participants Jessica Goodrich, Applicable) Latha Wright Time Out Complete 01/21/24 08:45:00 Allergies Reviewed? Yes Allergies Reviewed Self/Patient With Body Position Frog Legged Prep Area vagina Prep Agents Betadine Solution Skin. Condition Intact, [place], Warm, and Description n/a Dry Additional None [...] 01/21/24 08:55 Jessica Goodrich 01/21/24 08:55 Normal [facility] Main OR Preoperative Recordo n 01-21-2024 Main OR Preoperative Record Holding Area Document Type FTURO Summary Primary Physician: Lin Dalton MD Finalized Date/Time: 01/21/24 08:30:18 Pt. Name: SVETLANA SILVA Key Ceron/Sex: 1955 Female Med Rec #: [id number] Physician: Lin Dalton MD Financial #: [id number] Pt. Type: O Room/Bed: / Admit/Disch: 01/21/24 [...] SCOTT Fischer RN, Ruthann 01/21/24 08:30 Normal [facility] Operative Reporton Operative Report Patient: SVETLANA SILVA Age: 68 years Sex: Female : 1955 Associated Diagnoses: None Author: Lin Dalton MD Procedure Operative Information Details: Date/ Time: 01/21/2024 08:52:00. Pre-Op Dx: Gross hematuria (FKT65-XZ R31.0, Discharge, Medical), Bladder mass (CSB69-ZP N32.89, Discharge, Medical). Post-Op Dx: Same. Anesthesia [...] mass. Risks/benefits again discussed. CTU 01/17/24 at [facility] - 4.8 x 2.1 cm irregular left bladder wall mass, appears to be continuous with muscle on personal review. No upper tract filling defects, no lymphadenopathy. CXR - no mets. COPD changes (hyperexpansive). Normal [facility] Comment on above: Result Comment: Elec tronically Signed By: Lin Dalton MD\.br\Date and Time Signed: 01/21/24 08:58 EDT Outpatient Surgery Discharge Instructionon 01-21-2024 Outpatient Surgery Discharge Instruction [place] [id number] Patient Discharge Instructions PERSON INFORMATION Name: SVETLANA [...] you have a fever over 100 degrees. I, SVETLANA SILVA, have received the attached patient education materials/instruction [...] to serve you. Thank you for choosing [facility] Normal [facility] ED Note-Physicianon 01-18-20 24 ED Note-Physician [id number] .00TIFF Normal [facility] RAD - CT Reporton 01-18-2024 RAD - CT Report [id number]#1. 00TIFF Normal [facility] RAD - CT Report [id number] .00TIFF Normal [facility] RAD - MISCon 01-18-2024 RAD - MISC [id number]#1 .00TIFF Normal [facility] - MISC [id number]#1. 00TIFF Normal [facility] Urology Office/Clinic Noteon 01-18-2024 Urology Office/Clinic Note HPI Staff 68 year old female New Pt. seen in [facility] 01/13/24 due to hematuria associated with [...] new to our office due to recent [facility] ER visit for gross hematuria and suspected bladder mass. Hx of COPD. Not currently on oxygen. States her stats are in the 90s. Pt here with granddaughter today. BBS 26 Hx of partial hysterectomy. 1. Bladder mass (N32.89: Other specified disorders of bladder) Pt presented to [facility] ER 01/13/24 for eval of hematuria [...] UTI. CT AP wo IV con 01/13/24 [facility] - shows asymmetric focal thickening of the [...] on any blood thinners. No hx of VA or stroke. Pt states her doctor thinks she may of had a stroke when she had COVID, but never confirmed. -Present to the ER if pt is unable to void due to clots -Increase fluids to prevent clots -Urine sent for cytology today -Will schedule CT AP w/ IV and delayed phase to complete urogram @ [facility] STAT prior to TURBT for staging -CXR [...] for indwell (more content not included)... Normal [facility] Comment on above: Result Comment: Elec tronically [...] Schedule the Following Appointments Follow Up with Lin Dalton MD, URL, URO When: Where: Medications What How Much [...] including vitamins, herbs, eye drops, creams, and ulhv-trw-tfejihy medicines. ? Any problems you or family members have had with anesthetic medicines. ? Any bleeding problems you have. ? Any surgeries you have had. ? Any medical conditions you have, including recent urinary tract infections. ? Whether you are or may be . What are the risks? General (more content not included)... Normal [facility] Formson 01-17-2024 Forms [id number]#1. 00TIFF [facility] Patient Educationon 01-17-20 24 Patient Education [...] including vitamins, herbs, eye drops, creams, and jtgf-gyn-mjvldrk medicines. ? Any problems you or family [...] tells you to take them. ? Taking spjw-uwv-eiflzya medicines, vitamins, herbs, and supplements. General instructions [...] as y (more content not included)... Normal [facility] Screenson 01-17-2024 Screens [id number]#1 .00TIFF Normal [facility] Urine Cytology ([facility])on 0 01-17-2024 Method of Extraction Voided Normal [facility] Comment on above: Performed By: #### 1 [id number] #### [facility] [address] Number of Jars 1 Invalid Interpretation Code [facility] Comment on above: Performed By: #### 1 [id number] #### [facility] [address] [place] [address] Specimen Urine Normal [facility] Comment on above: Performed By: #### 1 [id number] #### [facility] [address] [place] [id number] Type of Service Technical Only Normal [facility] Comment on above: Performed By: #### 1 [id number] #### [facility] [address] [place] [id number] Office Visit (Cardiology)on 03-30-2023 Follow-up visit Diagnoses/Problems Assessed Dyspnea (786.09) (R06.00) Wnkqm-2-mxuatieehts 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) Centrilobular emphysema (492.8) (J43.2) Former smoker (V15.82) (Z87.891) HTN (hypertension) (401.9) (I10) Mixed hyperlipidemia (272.2) (E78.2) Overweight with body mass index (BMI) of 26 to 26.9 in adult (278.02,V85.22) (E66.3,Z68.26) Orders Overweight with body mass index (BMI) of 26 to 26.9 in adult Healthy Weight Tips; Status:Complete - Retrospective Authorization; Done: 87Ppn1985 Some eating tips that can help you lose weight.; Status:Complete - Retrospective Authorization; Done: 07Xzv3571 SocHx: Former smoker Tobacco Use Screening; Status:Complete; Done: 34Ggc6447 Patient Instructions Please bring all medicines, vitamins, [...] negative for complaint. Vitals Vital Signs Recorded: 03Yjs4795 10:39AM Heart Rate76, L Radial Cdbklxrl206, LUE, Sitting Ovbstwgiv29, LUE, Sitting Height4 ft 11 in Pjhvuy931 lb BMI Dchplgcbmt09.86 kg/m2 BSA Calculated1.55 Tobacco Useb) No PHQ-2 [...] Pulmonary: n (more content not included)... Normal [facility] Tobacco Screening.on 023 Adult depression screening assessment No [facility] Work Phone: Fall risk assessment a) No falls within the last year [facility] y 250 DO Work Phone: Tobacco use status [facility] b) No [facility] Work Phone: Echocardiogramon 03-09-[address], [address] [place] [address] TRANSTHORACIC ECHOCARDIOGRAM REPORT Patient Name: SVETLANA Hernández Physician: [id number] Benny Kang MD Study Date: 03/09/2023 Referring Physician: BENNY KANG MRN/PID: [id number] PCP: Accession/Order#: [id number] Department Location: [facility] Date of : 1955 Fellow: Gender: F Nurse: Admit Date: Aluminum Welder: Fatuma Vidales RD, [facility] Height: 149.86 cm CC Report to: Weight: 59.88 kg Study Type: Echocardiogram BSA: 1.55 m2 Blood Pressure: 140 /78 mmHg Diagnosis/ICD: R06.00-Dyspnea, unspecified Indication: HTN, Hyperlipidemia, Former Smoker, Centrilobular Emphysema, Alpha-1 Antitrysin Deficiency, Overweight Procedure/CPT: Echo Complete w Full Doppler-[id number] Study Detail: The following Echo studies were [...] 0.8 m/s (0.6-0.9m/s) PV Max P.7 mmHg [id number] Benny Kang MD Electronically signed on 03/10/2023 at 4:28:00 PM Final Normal [facility] CARDIAC STRESS/REST INJE CTIONon 03-09-2023 [facility] CARDIAC STRESS/REST INJECTION Patient Name: SVETLANA SILVA STUDY: MYOCARDIAL PERFUSION STRESS TEST WITH LEXISCAN Performing facility: [facility], [address] [place] [address], [address], [place] [address] [facility] Provider: Benny Kang MD PCP: Dr. David Allan Supervising provider: Polina Palomino MD, FACC INDICATION: Dyspnea HISTORY: Gender: F; Age: 67 y/o ; Height: 0 cm; Weight: 0 kg. High Cholesterol; HTN; SOB; COPD; Emphysema Quit smoking 3.5 years ago. COMPARISON: No comparison. 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 : dyspnea Overweight with body mass index (BMI) of 26 to 26.9 in adult Healthy Weight Tips; Status:Complete; Done: 19Qvn5174 Some eating tips that can help you lose weight.; Status:Complete; Done: 36Xqr8573 SocHx: Former smoker Tobacco Use Screening; Status:Complete; Done: 73Eel2307 Patient Instructions Please bring all medicines, vitamins, [...] no sei (more content not included)... Normal [facility] Tobacco Screening.on 023 Adult depression screening assessment No [facility] y 250 DO Work Phone: Fall risk assessment b) One or more fall s in the last year [facility] y 250 DO Work Phone: Tobacco use status [facility] b) No [facility] y 250 DO Work Phone: XR CHEST [...] by: FRANCIS ANDERSON Date: 2022-10-17 15:20 Normal [facility] CT LUNG CANCER SCREENINGon 0 [...] THERESA LUCIA Date: 2022-08-17 07:32 Normal [facility] PROF 14(COMP METB)on 022 Albumin [Mass/Vol] 3.9 g/dL Normal 3.4-5.0 [facility] Comment on above: Performed By: #### C MP #### [facility] [address] [place] [address] Dr. Shelby Rodriguez Albumin/Globulin [Mass ratio] 1.2 {ratio} Normal [facility] Comment on above: Performed By: #### C MP #### [facility] [address] [place] [address] Dr. Shelby Rodriguez ALP [Catalytic activity/Vol] 60 U/L Normal 46-116 [facility] Comment on above: Performed By: #### C MP #### [facility] [address] [place] [address] Dr. Shelby Rodriguez ALT [Catalytic activity/Vol] 35 U/L Normal 14-59 [facility] Comment on above: Performed By: #### C MP #### [facility] [address] [place] [address] Dr. Shelby Rodriguez Anion gap [Moles/Vol] 10.3 mmol/L Normal [facility] Comment on above: Performed By: #### C MP #### [facility] [address] [place] [address] Dr. Shelby Rodriguez AST [Catalytic activity/Vol] 22 U/L Normal 15-37 [facility] Comment on above: Performed By: #### C MP #### [facility] [address] [place] [address] Dr. Shelby Rodriguez Bilirubin [Mass/Vol] 0.5 mg/dL Normal 0.2-1.0 [facility] Comment on above: Performed By: #### C MP #### [facility] [address] [place] [address] Dr. Shelby Rodriguez Calcium [Mass/Vol] 9.4 mg/dL Normal 8.5-10.1 [facility] Comment on above: Performed By: #### C MP #### [facility] [address] [place] [address] [address] Shelby Rodriguez Chloride [Moles/Vol] 105 mmol/L Normal 98-107 [facility] Comment on above: Performed By: #### C MP #### [facility] [address] [place] [address] [address] Shelby Rodriguez CO2 [Moles/Vol] 30.5 mmol/L Normal 21.0-32.0 [facility] Comment on above: Performed By: #### C MP #### [facility] [address] [place] [address] Dr. Shelby Rodriguez Creatinine [Mass/Vol] 0.87 mg/dL Normal 0.55-1.02 [facility] Comment on above: Performed By: #### C MP #### [facility] [address] [place] [address] Dr. Shelby Rodriguez EGFR-AF COMORAN >60 Normal >=60 [facility] Comment on above: Performed By: #### C MP #### [facility] [address] [place] [address] [address] Shelby Rodriguez EGFR-NON AF COMORAN >60 Normal >=60 [facility] Comment on above: Performed By: #### C MP #### [facility] [address] [place] [address] Dr. Shelby Rodriguez Globulin (S) [Mass/Vol] 3.2 g/dL Normal [facility] Comment on above: Performed By: #### C MP #### [facility] [address] [place] [address] Dr. Shelby Rodriguez Glucose [Mass/Vol] 122 mg/dL Critically high 74-106 [facility] Comment on above: Performed By: #### C MP #### [facility] [address] [place] [address] Dr. Shelyb Rodriguez Potassium [Moles/Vol] 4.8 mmol/L Normal 3.5-5.1 [facility] Comment on above: Performed By: #### C MP #### [facility] [address] [place] [address] [address] Shelby Rodriguez Protein [Mass/Vol] 7.1 g/dL Normal 6.4-8.2 [facility] Comment on above: Performed By: #### C MP #### [facility] [address] [place] [address] [address] Shelby Rodriguez Sodium [Moles/Vol] 141 mmol/L Normal 136-145 [facility] Comment on above: Performed By: #### C MP #### [facility] [address] [place] [address] [address] Shelby Rodriguez Urea nitrogen [Mass/Vol] 14.0 mg/dL Normal 7.0-18.0 [facility] Comment on above: Performed By: #### C MP #### [facility] [address] [place] [address] [address] Shelby Rodriguez Urea nitrogen/Creatinine [Mass ratio] 16.1 mg/mg Normal [facility] Comment on above: Performed By: #### C MP #### [facility] [address] [place] [address] [address] Shelby Rodriguez Vital Signs Date Time Vital Sign Value Performing Clinician Facility 02-29-2024 09:05-0400 Blood Pressure Location [facility] 02-29-2024 09:05-0400 Diastolic blood pressure 86 mm[Hg] [facility] 02-29-2024 09:05-0400 Heart rate 64 /min [facility] 02-29-2024 09:05-0400 Respiratory rate 16 /min [facility] 02-29-2024 09:05-0400 Systolic blood pressure 142 mm[Hg] [facility] 02-01-2024 13:20-0400 Body temperature 98.6 [degF] [facility] 02-01-2024 13:20-0400 Diastolic blood pressure 61 mm[Hg] [facility] 02-01-2024 13:20-0400 Heart rate 72 /min [facility] 02-01-2024 13:20-0400 Respiratory rate 16 /min [facility] 02-01-2024 13:20-0400 Systolic blood pressure 125 mm[Hg] [facility] 11-28-2023 15:41-0400 Body height 149.9 cm Benny Kang MD Work Phone: [facility] 11-28-2023 15:41-0400 Body mass index (BMI) [Ratio] 25.45 kg/m2 Benny Kang MD Work Phone: [facility] 11-28-2023 15:41-0400 Body weight 57.15 kg Benny Kang MD Work Phone: [facility] 11-28-2023 15:41-0400 Diastolic blood pressure 80 mm[Hg] Benny Kang MD Work Phone: [facility] 11-28-2023 15:41-0400 Heart rate 66 /min Benny Kang MD Work Phone: [facility] 11-28-2023 15:41-0400 Systolic blood pressure 130 mm[Hg] Benny Kang MD Work Phone: [facility] 09-24-2023 18:05-0500 Body height 149.9 cm Shaikh Jerrell SINGLETARY Work Phone: [facility] 09-24-2023 18:05-0500 Body mass index (BMI) [Ratio] 24.64 kg/m2 Shaikh Jerrell SINGLETARY Work Phone: [facility] 09-24-2023 18:05-0500 Body temperature 97 [degF] Shaikh Jerrell SINGLETARY Work Phone: [facility] 09-24-2023 18:05-0500 Body weight 55.34 kg Shaikh Jerrell SINGLETARY Work Phone: [facility] 09-24-2023 18:05-0500 Diastolic blood pressure 80 mm[Hg] Shaikh Jerrell SINGLETARY Work Phone: [facility] 09-24-2023 18:05-0500 Heart rate 90 /min Shaikh Jerrell SINGLETARY Work Phone: [facility] 09-24-2023 18:05-0500 SaO2% (BldA) [Mass fraction] 97 % Shaikh Jerrell SINGLETARY Work Phone: [facility] 09-24-2023 18:05-0500 Systolic blood pressure 132 mm[Hg] Shaikh Jerrell SINGLETARY Work Phone: [facility] 03-30-2023 10:39-0400 Body height 149.86 cm Shaikh Jerrell Work Phone: [facility] 250 DO Work Phone: 03-30-2023 10:39-0400 Body mass index (BMI) [Ratio] 26.86 kg/m2 Shaikh Jerrell Work Phone: [facility] 250 DO Work Phone: 03-30-2023 10:39-0400 Body surface area Derived from formula 1.55 m2 Shaikh Marywad Work Phone: [facility] 250 DO Work Phone: 03-30-2023 10:39-0400 Body weight 60.33 kg Shaikh Mary Bethwwad Work Phone: [facility] 250 DO Work Phone: 03-30-2023 10:39-0400 Diastolic blood pressure 70 mm[Hg] Shaikh Mary Bethwwad Work Phone: [facility] 250 DO Work Phone: 03-30-2023 10:39-0400 Heart rate 76 /min Shaikh Mary Bethwwad Work Phone: [facility] 250 DO Work Phone: 03-30-2023 10:39-0400 Systolic blood pressure 122 mm[Hg] Shaikh Mary Bethwwad Work Phone: [facility] 250 DO Work Phone: 01-26-2023 11:30-0400 Diastolic blood pressure 92 mm[Hg] Khan Fawwad Work Phone: [facility] 250 DO Work Phone: 01-26-2023 11:30-0400 Systolic blood pressure 164 mm[Hg] Khan Fawwad Work Phone: [facility] 250 DO Work Phone: 01-26-2023 11:29-0400 Body height 149.86 cm Khan Mary Bethwwad Work Phone: [facility] 250 DO Work Phone: 01-26-2023 11:29-0400 Body mass index (BMI) [Ratio] 26.66 kg/m2 Shaikh Gavid Work Phone: [facility] 250 DO Work Phone: 01-26-2023 11:29-0400 Body surface area Derived from formula 1.55 m2 Shaikh Jerrell Work Phone: [facility] 250 DO Work Phone: 01-26-2023 11:29-0400 Body weight 59.88 kg Shaikh Jerrell Work Phone: [facility] 250 DO Work Phone: 01-26-2023 11:29-0400 Diastolic blood pressure 100 mm[Hg] Shaikh Gavid Work Phone: [facility] 250 DO Work Phone: 01-26-2023 11:29-0400 Heart rate 91 /min Shaikh Jerrell Work Phone: [facility] 250 DO Work Phone: 01-26-2023 11:29-0400 Systolic blood pressure 184 mm[Hg] Shaikh Gavid Work Phone: [facility] 250 DO Work Phone: Encounters Encounter Date Encounter Type Care Provider Facility Start: 02-29-2024 End: 02-29-2024 Lab Drop off Lin Dalton [facility] Start: 02-29-2024 End: 02-29-2024 ambulatory Lin Dalton Facility:[facility] Start: 02-29-2024 End: 02-29-2024 Patient encounter procedure Lin Dalton [facility] [place] Start: 02-01-2024 End: 02-01-2024 ambulatory Lin M. Lue Facility:[facility] Start: 02-01-2024 End: 02-01-2024 Patient encounter procedure Lin M. Lue [facility] [place] Start: 01-31-2024 End: 01-31-2024 ambulatory SHAIKH MARYANDERSON Not Available Start: 01-23-2024 End: 01-23-2024 ambulatory Lin M Lue [facility] Work Phone: Start: 01-23-2024 End: 01-23-2024 Departed Referred MD Lin Dalton Work Phone: [facility] Start: 01-23-2024 End: 01-23-2024 ambulatory Lin M. Lue Facility:CD:[id number] Start: 01-21-2024 End: 01-21-2024 ambulatory Lin M. Lue Facility:[facility] Start: 01-21-2024 End: 01-21-2024 Patient encounter procedure Lin M. Lue [facility] Start: 01-17-2024 End: 01-17-2024 Lab Drop off Lin M. Lue [facility] Start: 01-17-2024 End: 01-17-2024 ambulatory Lin M. Lue Facility:[facility] Start: 01-17-2024 End: 01-17-2024 Patient encounter procedure Lin M. Lue [facility] [place] Start: 01-14-2024 ambulatory Lin Lue Facility:[facility] Start: 12-31-2023 End: 12-31-2023 ambulatory SHAIKH MARYANDERSON Not Available Start: 11-28-2023 End: 11-28-2023 ambulatory BENNY KANG [facility] Start: 11-28-2023 End: 11-28-2023 Office outpatient visit 15 minutes Benny Kang MD Work Phone: [facility] Comment on above: Shortness of breath (Primary Dx); Essential hypertension; Mixed hyperlipidemia; Enqdj-3-owqeupnredl deficiency (Multi); Centrilobular emphysema (Multi); Former smoker; BMI 25.0-25.9,adult Start: 11-14-2023 End: 11-14-2023 ambulatory SHAIKH JERRELL Not Available Start: 09-24-2023 End: 09-24-2023 Office outpatient visit 15 minutes Shaikh Jerrell SINGLETARY Work Phone: [facility] Comment on above: Current moderate epi sode of major depressive disorder without prior episode (HCC) (CMS/HCC) (Primary Dx) Start: 09-24-2023 End: 09-24-2023 Orders Only Shaikh Jerrell SINGLETARY Work Phone: [facility] Comment on above: Primary hypertension (CMS/HCC) (Primary Dx) Start: 08-23-2023 End: 08-23-2023 ambulatory SHAIKH JERRELL Not Available Start: 08-02-2023 Patient encounter procedure Shaikh Jerrell SINGLETARY Work Phone: [facility] Start: 08-02-2023 End: 08-02-2023 ambulatory SHAIKH JERRELL Not Available Start: 03-30-2023 Office outpatient vi sit 15 minutes Shaikh Jerrell Work Phone: [facility] 250 DO Work Phone: Start: 03-30-[address] Benny Kang Facility: Start: 03-11-2023 Chart Update Shaikh Jerrell Work Phone: [facility] 250 DO Work Phone: Start: 03-10-2023 Chart Update Shaikh Jerrell Work Phone: [employer] 250 DO Work Phone: Start: 03-09-[address] Benny Kang Facility:[id number] Start: 01-26-2023 Office consultation new/estab patient 60 min Shaikh Jerrell Work Phone: [employer] 250 DO Work Phone: Start: 01-26-[address] Benny Kang Facility: Start: 01-02-2023 [facility]ulatory [facility] Facility :H1 Start: 10-17-2022 End: 10-18-2022 ambulatory [facility] . Facility:H1 Start: 08-16-2022 End: 08-17-2022 ambulatory [facility] . Facility:H1 Start: 04-20-2022 End: 04-21-2022 ambulatory SHAIKH Natasha ALLAN Facility:H1 Procedures Date Procedure Procedure Detail Performing Clinician Start: 01-23-2024 Transurethral resect ion of bladder neoplasm Lin Lue Start: 01-21-2024 Cystoscopy normal (finding) Lin Lue Start: 03-09-2023 Echocardiography Shaikh Jerrell Work Phone: Start: 03-04-2023 Mammography Shaikh Mary salazar MD Work Phone: Start: 09-11-2017 Colonoscopy Shaikh Mary salazar MD Work Phone: Appendectomy Shaikh Jerrell Work Phone: Cataract surgery Shaikh Huy coley Work Phone: Colonoscopy Shaikh Jerrell Work Phone: Hysterectomy Shaikh Jerrell Work Phone: Partial hysterectomy Lin L ue Surgical procedure o n eye proper Shaikh Jerrell Work Phone: Plan of Treatment Date Care Activity Detail Author Start: 09-11-2027 Screening for malign ant neoplasm of colon [facility] Start: 09-02-2024 End: 09-02-2024 Patient encounter procedure 09/02/2024 1:30 PM EST Office Visit [facility] [address] [facility] [address] [place] [id number] Benny Kang MD [address] [place] [address] [facility] Start: 08-02-2024 Medicare Annual Well ness (AWV) Medicare Annual Wellness (AWV) [facility] Start: 03-04-2024 Screening for malign ant neoplasm of breast Mammogram [facility] Start: 11-22-2023 End: 11-22-2023 Patient encounter procedure 11/22/2023 11:30 AM EDT Office Visit [facility] [address] [place] [address] Shaikh Allan MD [address] [place] [phone] [facility] Start: 10-05-2023 FUV, Provider: Benny Kang, Status: Pen, Time: 9:20 AM FUV, Provider: Benny Kang, Status: Pen, Time: 9:20 AM [employer] 250 DO Work Phone: Start: 09-24-2023 End: 09-24-2023 Patient encounter procedure 09/24/2023 5:45 PM EST Office Visit [facility] [address] [place] [address] Shaikh Allan MD [address] [place] [phone] [facility] Start: 04-13-2023 COVID-19 Vaccine ( season) COVID-19 Vaccine ( season) [facility] Start: 03-30-2023 FUV, Provider: Benny Kang, Status: Pen, Time: 10:30 AM FUV, Provider: Benny Kang, Status: Pen, Time: 10:30 AM [facility] 250 DO Work Phone: Start: 03-09-2023 ECHO, Provider: HALEY YANIQUE [facility] ULTRASOUND 01,[id number], Status: Pen, Time: 10:45 AM ECHO, Provider: XENIA [facility] ULTRASOUND 01,[id number], Status: Pen, Time: 10:45 AM [facility] 250 DO Work Phone: Start: 03-09-2023 STRESS NUC, Provider : XENIA [facility] NUCLEAR 01,[id number], Status: Pen, Time: 8:30 AM STRESS NUC, Provider: XENIA [facility] NUCLEAR 01,[id number], Status: Pen, Time: 8:30 AM -[facility] 250 DO Work Phone: Start: 04-26-2021 DTaP/Tdap/Td Vaccine s (1 - Tdap) DTaP/Tdap/Td Vaccines (1 - Tdap) [facility] Start: 2013 Hepatitis B Vaccines (1 of 3 - Risk 3-dose series) Hepatitis B Vaccines (1 of 3 - Risk 3-dose series) [facility] Start: 1993 Screening for malign ant neoplasm of breast Mammogram [facility] Start: 1972 Hepatitis A Vaccines (1 of 2 - Risk 2-dose series) Hepatitis A Vaccines (1 of 2 - Risk 2-dose series) [facility] Start: 1971 Diabetes mellitus screening Diabetes Screening [facility] Start: 1971 [facility]atitis C [facility]: [facility] Lipid panel Lipid Panel [facility] Start: 1953 Medicare Annual Well ness Visit Medicare Annual Wellness Visit (AWV) [facility] Start: 1953 Screening for malign ant neoplasm of colon [facility] Start: 1955 Screening for osteoporosis Bone Density Scan [facility] Immunizations Immunization Date Immunization Notes Care Provider Fa cilimicaela 05-26-2023 ABRYSVO - Respirator y syncytial virus (RSV), vaccine, bivalent, protein subunit RSV prefusion F, diluent reconstituted, 0.5 mL, PF Shaikh Jerrell SINGLETARY Work Phone: [facility] 05-24-2023 influenza virus vaccine, unspecified formulation Lin Dalton [facility] 05-24-2023 Influenza, High-dose Seasonal, Quadrivalent, Preservative Free Shaikh Jerrell SINGLETARY Work Phone: [facility] 05-24-2023 Pneumococcal Conjuga te PCV 20 Shaikh Jerrell SINGLETARY Work Phone: [facility] 05-03-2023 pneumococcal conjuga te 20-valent (Prevnar 20) 0.5 ML vaccine Shaikh Jerrell SINGLETARY Work Phone: [facility] 10-27-2022 zoster vaccine recombinant Shaikh Jerrell Work Phone: [employer] 250 DO Work Phone: 08-27-2022 zoster vaccine recombinant Shaikh Jerrell Work Phone: [employer] 250 DO Work Phone: 06-03-2022 Fluzone High-Dose Quadrivalent 0.7 ML Intramuscular Suspension Prefilled Syringe Shaikh Jerrell Work Phone: [employer] 250 DO Work Phone: 06-03-2022 influenza virus vaccine, unspecified formulation Lin Dalton [facility] 06-03-2022 influenza, seasonal, injectable Benny Kang MD Work Phone: [facility] Work Phone: 08-03-2021 Pfizer-BioNTech COVID-19 Vacc 30 MCG/0.3ML Intramuscular Suspension Mary Bethwwad Work Phone: [facility] 06-02-2021 Fluzone High-Dose Quadrivalent 0.7 ML Intramuscular Suspension Prefilled Syringe Jerrell Work Phone: [facility] 250 DO Work Phone: 06-02-2021 influenza virus vaccine, unspecified formulation Lin Dalton [facility] 04-25-2021 diphtheria, tetanus toxoids and pertussis vaccine Khan Jerrell Work Phone: [facility] 04-25-2021 tetanus and diphther ia toxoids, adsorbed, preservative free, for adult use (2 Lf of tetanus toxoid and 2 Lf of diphtheria toxoid) Benny Kang MD Work Phone: [facility] Work Phone: 12-23-2020 Pfizer-BioNTech COVID-19 Vacc 30 MCG/0.3ML Intramuscular Suspension Marywaalvin Work Phone: [facility] 12-02-2020 Pfizer-BioNTech COVID-19 Vacc 30 MCG/0.3ML Intramuscular Suspension Mary Bethwwad Work Phone: [facility] 07-21-2014 influenza virus vaccine, unspecified formulation Lin Sha [facility] 07-21-2014 influenza, seasonal, injectable Khan Marywad Work Phone: [employer] 250 DO Work Phone: 06-21-2013 influenza virus vaccine, unspecified formulation Lin Dalton [facility] 06-21-2013 influenza, seasonal, injectable Shaikh Gavid Work Phone: [employer] 250 DO Work Phone: 08-31-2012 influenza virus vaccine, unspecified formulation Lin Dalton [facility] 08-31-2012 influenza, seasonal, injectable, preservative free Shaikh Marywad Work Phone: [place] [address] DO Work Phone: Payers Date Payer Category Payer Self-pay [id number] 2018 Medicare [id number] 1959 Medicare [id number] 1959 Private Health Insurance [facility] [id number] 1953 Unknown [id number] 2.16.84 0.1.803050.3.579.2.593 1953 Unknown [id number] 2.16.84 0.1.495543.3.579.2.593 1953 Unknown [id number] 2.16.84 0.1.179164.3.579.2.593 1953 Unknown [id number] 2.16.84 0.1.344859.3.579.2.593 1953 Unknown [id number] 2.16. 840.1.206811.3.579.2.356 1953 Unknown [id number] 2.16. 840.1.176643.3.579.2.356 1953 Unknown [id number] 2.16. 840.1.069384.3.579.2.356 1953 Unknown [id number] 2.16.8 40.1.261787.3.579.2.1068 1953 Unknown [id number] 2.16.8 40.1.249010.3.579.2.1244 1953 Unknown [id number] 2.16.84 0.1.991089.3.579.2.1259 1953 Unknown [id number] 2.16.84 0.1.074885.3.579.2.1259 1953 Unknown [id number] 2.16.84 0.1.537552.3.579.2.1259 1953 Unknown [id number] 2.16.84 0.1.859471.3.579.2.1259 1953 Unknown [id number] 2.16.84 0.1.466804.3.579.2.1259 1953 Unknown [id number] 2.16.840 .1.712688.3.579.2.1259 1953 Unknown [id number] 2.16.8 40.1.878245.3.579.2.727 1953 Unknown [id number] 2.16.8 40.1.417887.3.579.2.727 1953 Unknown [id number] 2.16.8 40.1.146549.3.579.2.727 1953 Unknown [id number] 2.16.8 40.1.676886.3.579.2.727 1953 Unknown [id number] 2.16.8 40.1.046379.3.579.2.727 1953 Unknown [id number] 2.16.8 40.1.165454.3.579.2.727 1953 Unknown [id number] 2.16.8 40.1.256504.3.579.2.727 Medicaid [id number] Private Health Insurance [facility] [id number] Unknown Unknown [id number] 2.16.8 40.1.239608.3.579.2.531 Social History Date Type Detail Facility Start: 08-29-2023 End: 11-28-2023 No caffeine use No caffeine use [facility] 250 DO Work Phone: Start: 08-29-2023 End: 02-29-[address] [facility] Ex-smoker [facility] Start: 10-25-2017 End: 06-28-2020 History of tobacco use Current smoker [facility] End: 06-28-2020 History of tobacco use Cigarette Smoker [facility] Start: 08-29-2023 End: 11-28-2023 Tobacco use and exposure Smokeless tobacco non-user [facility] Start: 08-29-2023 End: 11-28-2023 Alcohol intake Lifetime non-drinker (finding) [facility] Start: 08-29-2023 End: 11-28-2023 Tobacco use panel [facility] Start: 07-18-2023 Alcohol Comment caffeine: 1-2 cups per day [facility] Start: 1955 Sex Assigned At Not on file [facility] Start: 11-18-2023 End: 11-28-2023 Exposure to SARS-CoV-2 (event) Not sure [facility] Start: 1955 Sex Assigned At Female [facility] Tobacco smoking status Never [facility] NEGATED: Highlighted rowStart: NINF History of tobacco use Passive smoker [facility] Medical Equipment Procedure Code Equipment Code Equipment Original Text Equipment Identifier Dates Phacoemulsification of cataract with intraocular lens implantation LENS ACRYSOF IOL [id number] FDA Start: 09-27-2017 Phacoemulsification of cataract with intraocular lens implantation LENS ACRYSOF IOL [id number] FDA Start: 10-25-2017 Functional Status Date Assessment Result Facility 02-29-2024 Functional Status N/A [facility] 02-01-2024 Functional Status N/A [facility] Clinical Notes 01-26-2023 to 02-29-2024 Benny Kang MD - 11/28/2023 2:50 PM EDTPatient InstructionsShesteban Allan MD - 09/24/2023 6:31 PM ESTSfanny Allan MD - 09/24/2023 5:45 PM EST Note Date & Type Note Facility 02-29-2024 Evaluation + Plan note Diagnostic Tests PendingUrine Culture 02/29/24 [facility] 02-29-2024 Hospital Discharg e instructions Patient Education 02/29/2024 09:22:07 Bladder Cancer Bladder Cancer Bladder cancer is [...] cells. Follow these instructions at home: Take ukoq-qlk-gvquutr and prescription medicines only as told by [...] is important. Where to find more information [place] [employer] (ACS): cancer.org National Cancer [place] (NCI): cancer.gov Contact a health care provider [...] provider. Document Revised: 07/10/2022 Document Reviewed: 07/10/2022 [employer] [facility] Patient Education 2022 [employer]. Follow Up Care 02/01/2024 14:08:57 With:Sha SINGLETARY, KYLE Aguilera, URO Address: When: Unknown [facility] 02-29-2024 Note Patient Education Oncology Bladder Cancer Bladder cancer [...] Follow these instructions at home: ? Take pnil-dhd-nxgorux and prescription medicines only as told by [...] important. Where to find more information ? [place] [employer] (ACS): cancer.org ? National Cancer [place] (NCI): cancer.gov Contact a health care provider [...] care provider. Make sure you discuss any q (more content not included)... [facility] 02-01-2024 Hospital Discharg e instructions Patient Education [...] cells. Follow these instructions at home: Take khzb-tde-vfzpjvi and prescription medicines only as told by [...] is important. Where to find more information [place] [employer] (ACS): cancer.org National Cancer [place] (NCI): cancer.gov Contact a health care provider [...] provider. Document Revised: 07/10/2022 Document Reviewed: 07/10/2022 [employer] Patient Education 2022 [employer]. Follow Up Care 01/25/2024 10:58:20 With:Sha SINGLETARY, KYLE Aguilera, URO Address: When: Unknown [facility] [place] 01-21-2024 Hospital Discharg e instructions Patient Education [...] appointment for TURBT, possible left ureteral stent [facility] 01-21-2024 Note [id number] [facility] 01-21-2024 Note Cystoscopy ? Voiding after the [...] you have a fever over 100 degrees. [facility] 01-17-2024 Hospital Discharg e instructions Patient Education 01/17/2024 [...] including vitamins, herbs, eye drops, creams, and rcja-nda-cmwmtni medicines. Any problems you or family members [...] provider tells you to take them. Taking hygn-wdu-rfabohl medicines, vitamins, herbs, and supplements. General instructions [...] provider. Document Revised: 08/04/2022 Document Reviewed: 08/04/2022 [employer] [facility] Patient Education 2022 [employer]. 01/17/2024 10:58:38 Cystoscopy Cystoscopy Cystoscopy is a [...] including vitamins, herbs, eye drops, creams, and kxde-zuf-xrehflg medicines. Any problems you or family members [...] provider tells you to take them. Taking fjen-dav-dtwxjjh medicines, vitamins, herbs, and supplements. Tests You [...] Follow these instructions at home: Medicines Take pbbq-yos-wuqyzsv and prescription medicines only as told by [...] provider. Document Revised: 04/12/2022 Document Reviewed: 03/11/2021 [employer] [facility] Patient Education 2022 [employer]. Follow Up Care 01/14/2024 11:56:48 With:Sha SINGLETARY, KYLE Aguilera, URO Address: When: Unknown [facility] 11-28-2023 History of Presen t illness [...] Up In Cardiology 3. Mixed hyperlipidemia 4. Bejtp-1-crnnfmrdjga deficiency (Multi) 5. Centrilobular emphysema (Multi) 6. [...] discussion and plan. documented in this encounter [facility] Work Phone: 11-28-2023 Instructions Iesha Roper [...] instructions on exercise. documented in this encounter [facility] Work Phone: 09-24-2023 History of Presen [...] major depressive disorder without prior episode (HCC) ([facility]/HCC) - Primary Patient was seen [...] weeks (around 11/05/2023). documented in this encounter [facility] 01-26-2023 History of Presen t illness Narrative [...] function test, lab work and remote echo1.Plan [employer] 250 DO Work Phone: Chief complaint Narrative - Reported SVETLANA SILVA is being seen for a consultation for shortness of breath. [employer] 250 DO Work Phone: Evaluation + Plan note Future Appointments Appointment Date:01/18/2024 10:30:00 AM Scheduled Provider: Location:[facility] Appointment Type:Urology CALL PAT FT Appointment Date:01/21/2024 08:00:00 AM Scheduled Provider: Location:[facility] Appointment Type:Urology FT [facility] Evaluation + Plan note Future Appointments Appointment Date:01/18/2024 10:30:00 AM Scheduled Provider: Location:[facility] Appointment Type:Urology CALL PAT FT Appointment Date:01/21/2024 08:00:00 AM Scheduled Provider: Location:[facility] Appointment Type:Urology FT Diagnostic Tests PendingUrine Cytology ([facility]) 01/17/24 [facility] Evaluation + Plan note Future Appointments Appointment Date:02/29/2024 09:15:00 AM Scheduled Provider:Sha SINGLETARY, Lin Caldera Location:[facility] Appointment Type:URO Office Visit [facility] Evaluation + Plan note [facility] Evaluation note Diagnosis Primary hypertension (CMS/HCC)- Primary Unspecified essential hypertension [facility] Diagnosis Current moderate episode of major depressive disorder without prior episode (HCC) (CMS/HCC)- Primary [facility] Diagnosis Shortness of breath- Primary Essential hypertension Unspecified essential hypertension Mixed hyperlipidemia Lvxum-7-wxtydcszeca deficiency (Multi) Gcvkl-3-xbhkwfklnom deficiency Centrilobular emphysema (Multi) Former smoker Personal history of tobacco use, presenting hazards to health BMI 25.0-25.9,adult documented in this encounter [facility] Work Phone: Evaluation noteNo assessment information available [facility] Work Phone: History of Present illness [...] her back in 6 months and follow-up [facility] 250 DO Work Phone: Hospital course Narrative No data available for this section [facility] Hospital Discharge instructions No data available for this section [facility] No data available for this section [facility] Reason for referral (narrative)* Consultation (Routine) - Authorized Specialty Diagnoses / Procedures Referred By Joelle t Referred To Contact Cardiology Diagnoses Essential hypertension Procedures Follow Up In Cardiology Benny aKng MD [address] [place] [address] [address], [address] [address] Benny Kang MD [address] [place] [address] [address], [address] [address] Referral ID Status Reason Start Date Expiration Date V isits Requested Visits Authorized [id number] Authorized 11/28/2023 11/27/2024 1 1 [facility] Work Phone: Summary Purpose Family History [...] being seen for results mpl and echo. Reason for Referral Referred by: Sha SINGLETARY, Lin Caldera Additional Source Comments INFORMATION SOURCE (unrecogn ized section and content) DATE CREATED AUTHOR 12/23/2022 [facility] DATE CREATED AUTHOR AUTHOR'S ORGANIZ ATION 03/31/2023 [facility] DATE CREATED AUTHOR AUTHOR'S ORGANIZ ATION 03/31/2023 [facility] DATE CREATED AUTHOR AUTHOR'S ORGANIZ ATION 04/13/2023 [facility] DATE CREATED AUTHOR AUTHOR'S ORGANIZ ATION 11/30/2023 [facility] DATE CREATED AUTHOR AUTHOR'S ORGANIZ ATION 02/01/2024 [facility] DATE CREATED AUTHOR AUTHOR'S ORGANIZ ATION 02/01/2024 [facility] EPIC DATE CREATED AUTHOR AUTHOR'S ORGANIZ ATION 02/05/2024 [facility] DATE CREATED AUTHOR AUTHOR'S ORGANIZ ATION 03/01/2024 [facility] DATE CREATED AUTHOR AUTHOR'S ORGANIZ ATION 03/04/2024 [facility] Care Teams (unrecognized sec tion and content) Quantitative Analyst Relationship Specialty Start Date End Date Shaikh Allan MD PCP - General Internal Medicine 06/07/23 Quantitative Analyst Relationship Specialty Start Date End Date Shaikh Allan MD [address] [place] [address] PCP - General Internal Medicine 09/24/23 Quantitative Analyst Relationship Specialty Start Date End Date Shaikh Allan MD PCP - General 01/26/23 Team Status: Inactive Member Role Status Dates Lin Datlon MD Attending Provider Active Start : January [...] BE BASED ON THE PRIMARY CLINICAL RECORDS. [facility]. provides no warranty or guarantee of the accuracy or completeness of information in this document.
== END 2024-03-10 09:06 | disposition home or self-care (01) ==
LOC: MAMMO 09:06
PROVIDERS: PCP Internal Medicine; Visit Provider Internal Medicine
DX: Z12.31 Encounter for screening mammogram for malignant neoplasm of breast (principal); Z80.3 Family history of malignant neoplasm of breast; Z80.41 Family history of malignant neoplasm of ovary; Z80.1 Family history of malignant neoplasm of trachea, bronchus and lung; Z80.0 Family history of malignant neoplasm of digestive organs
CPT/HCPCS: 77063; 77067

== ENCOUNTER 2024-03-28 08:57 | Outpatient (OUT) | payer MEDICARE, SELFPAY ==
--- OUTSIDE RECORDS SUMMARY | 2024-03-27 09:58 | XMS_ITS | CCD ---
Author Organization [facility] CliniSyma Care Team Providers Care Tooth Cutter Contact Wheel Name Role Phone FAWWAD, KHAN H Admitting [...] Consulting Unavailable Fawwad, Khan Unavailable Unavailable Unavailable [facility], Dr. Álvaro Fritz Referring Unavailab le Traboulangeles, Dr. Velasquez Attending Unavaila ble Trabfariba, Dr. Velasquez Referring Unavaila ble Traboulssi, Dr. Velasquez Attending Unavaila ble Traboulangeles, Dr. Velasquez Referring Unavaila ble Traboulsusyi, Dr. Velasquez Attending Unavaila ble Jorge Luis, Dr. Velasquez Attending Unavaila raul Allan MD, [facility] Primary Care Provider Shaik Allan MDh Primary Care Provider Jerrell [...] Attending Unavailable Lue, Lin M. Attending Unavailable ALEJANDRO WARE Attending Unavailable Allergies Allergy Classification Reported Allergen(s) Allergy Type Date of Onset Reaction(s) Facility Opioid Agonists (4 sources) Codeine; 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: [codeine] Drug Allergy Nausea (finding) [facility] (2 sources) Codeine; 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: [CODEINE] Drug Allergy 7 [facility] Repository (11 sources) Codeine; 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: [Codeine Derivatives] Drug Allergy 9 Nausea Only, GI intolerance, Other, Nausea/vomiting , Nausea (finding) [facility] (1 source) Codeine Drug Allergy 8 [facility] Repository Medications Current Medications Medication Drug Class(es) [...] Refill(s) 0 Start Date: 02/01/24 Status: Ordered [id number] 200 actuat albuterol 0.09 mg/actuat metered dose [...] 2 times per week after for maintenance., [facility] #72, 150, cm, 02/29/24 9:07:00 EDT, Height/Length [...] 1 puff(s) by inhalation twice daily Ipratropium [place] (Atrovent Hfa) 17 mcg/actuation HFA aerosol inhaler [...] day(s), # 7 tab(s), Refills(s) 0, Pharmacy: [facility] #[facility], 150, cm, 02/29/24 9:07:00 EDT, Height/Length [...] day(s), # 84 tab(s), Refills(s) 0, Pharmacy: [employer] #72, 150, cm, 02/29/24 9:07:00 EDT, Height/Length [...] of appendix 01-17-2024 Episodic Cancer of bladder (6 sources) Malignant tumor of urinary bladder; 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: [...] nutritional; endocrine; and metabolic disorders (6 sources) Jezjh-7-dsqhvecgbxa deficiency; 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: [Jjcec-4-xslxcibczsu deficiency] Onset: 08-30-2023 11-28-2023 Chronic Other nutritional; endocrine; and metabolic disorders (2 sources) Irrsr-7-gdzjweamswg deficiency; 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: [Bpohf-2-xaipvxbqtlk deficiency (Multi)] Onset: 08-30-2023 Chronic Other nutritional; [...] Test Name Value Interpretation Reference Range Facility [facility] 03-19-2024 CNOV Office Visit (URFMOB ) SVETLANA SILVA ([id number]) 1955 F Date Time Provider Department 03/19/24 1:30 PM ALEJANDRO WARE During your visit today, we recorded the following information about you: Pulse Blood pressure 81/minute 116/61 Alejandro Ware MD 03/19/2024 1:21 PM Addendum [facility] NEW PATIENT HISTORY AND PHYSICAL EXAM PATIENT INFO: Svetlana Silva 68 year old REFERRING M.D.: No referring provider defined for this encounter. CHIEF COMPLAINT: Bladder cancer HISTORY:Svetlana Silva is a 68 year old female presents for discussion of bladder cancer. had lap appy Vaginal partial histerectomy, PMHx- abdominal wall hernia, partial hysterectomy, COPD, former smoker, HTN, HLD, UTI HPI: (determine 4 of 8) 1-Duration: 2023 2-Location: Bladder 3-Severity: moderate 4-Context: pathology TURBT 01/23/2024- High-grade urothelial carcinoma w/ lamina propria and muscularis propria invasion PAST MEDICAL HISTORY: No past medical history on file. PAST SURGICAL HISTORY: No past surgical history on file. CXR - 01/21/2024 IMPRESSION: No acute infiltrate or evidence of cardiac decompensation. Chronic changes are noted. The overall appearance of the chest is unchanged. CT a/p 01/17/2024 IMPRESSION: 1. Irregular 4.8 cm mass along the left bladder wall suggestive of neoplasm. Recommend cystoscopy. 2. No obstructive uropathy.. REVIEW OF SYSTEMS: (positive in bold) GENERAL: Recent weight gain/loss, fatigue, weakness, fever, night sweats MUSCLE/JOINTS/BONE: Back pain, joint pain, joint swelling CARDIOVASCULAR: Chest pain, heart attack GASTROINTESTINAL: Abdominal pain, fecal incontinence HEAD AND NECK: Blurry vision, double vision, cataracts, loss of vision, dryness NEUROLOGIC: Numbness, tingling SKIN: Redness, rash, nodules/bumps, hair loss, color change in hands or feet RESPIRATORY: Cough, shortness of breath ENDOCRINE: Diabetes, thyroid problems THROAT: Frequent sore throats, hoarseness PHYSICAL EXAM: Constitutional: Well-nourished, No physical deformities. Normally developed. Good grooming. Respiratory: No labored breathing, no use of accessory muscles. Cardiovascular: Normal temperature, normal extremity pulses, no swelling, no varicosities. Skin: No paleness, no jaundice, no cyanosis. No lesion, no ulcer, no rash Neurologic/Psychiatri c: Oriented to time, oriented to place, oriented to person. No depression, no anxiety, no agitation. Musculosckeletal: Normal gait and station of head and neck Abdomen: Abdomen soft nontender nondistended with no masses. Small infraumbilical laparoscopic incision. Impression: 68-year-old female with COPD and recent bladder mass seen on imaging. Resection by outside urologist revealed invasive T2 bladder cancer. We talked about completion of staging with CT chest. We talked about consideration of neoadjuvant chemotherapy. She says that her local urologist is referring her to an oncologist closer to home. If she is able to receive neoadjuvant chemo this is preferable. If not we can look at dates for cystectomy. If she completes chemotherapy can consider cystectomy 4 to 6 weeks after her last treatment. I described cystectomy in detail. The risks, benefits and alternatives of a open or robotic radical cystectomy were discussed with the patient. These include, but are not limited to bleeding, infection, injury to adjacent structures (such as the rectum, bowel, or major blood vessels). There can also be wound infections, hernias and rarely chronic neuropathic pain or numbness. We also talked about medical complications, such as cardiac (OR, etc), respiratory (pneumonia, etc), renal (Acute kidney injury, etc), Blood clots (DVTs, PEs, etc), as well as other complications. We talked about the possibility of urine leak requiring intervention. We also talked about possible bowel complications, including obstruction, bowel leak, fistula formation or ischemia requiring reoperation. We talked about need for resection of the uterus, tubes and ovaries (if present) and anterior vaginal wall. Patient understood these risks, questions were answered and he agreed to proceed. We also discussed the main forms of urinary diversion in great detail, including the advantages and disadvantages. For all forms of diversion, we discussed the risks including but not limited to infection, absess, fistula, stricture, and for diversions with a stoma, we discussed the risks of stomal stenosis or parastomal hernia. We also discussed risk of metabolic abnormalities and need for long-term followup for this. For ileal conduit, we discussed the effects on quality of life in particular and also risk of cancer recurrence in the retained urethra. For all forms of diversion we also discussed risk to upper tracts on long-term basis and risk of cancer (more content not included)... Normal [facility] C Urineon 03-02-2024 Bacteria identified Cx Nom [...] Locations R1: This test was performed at: [facility], [address] [place] [address], [id number]- , , [facility] Comment on above: Performed By: #### 2 [id number] #### [facility] [address] [place] [id number] Ambulatory Visit Summary 0 02-29-2024 Ambulatory Visit Summary Ambulatory Visit Summary SVETLANA SILVA :1955 Visit Date:02/29/2024 Ambulatory Visit Instructions Your Diagnosis Bladder cancer UTI (urinary tract infection) Former smoker Your Care Team Attending Physician - Lin Dalton MD Primary Care Physician - NONE, XXXX This [...] Following Appointments Follow Up with Sha SINGLETARY, Lin Caldera, URL, URO When: Where: Someone Will Contact You Regarding These Appointments [facility] [place] Ambulatory Referral, Service not offered at [facility], Urology, Dr. Ware @ [facility], 02/29/24 9:34:00 EDT, Bladder cancer Medications What [...] Education Materia (more content not included)... Normal [facility] Urology Office/Clinic Noteon 02-29-2024 Urology Office/Clinic Note [...] bladder, unspecified) CT AP w con 01/17/24 [facility] - Irregular 4.8 cam mass along the [...] to move forward with radical cystectomy at [facility]. -Will refer to Dr. Ware at [facility] for robotic radical cystectomy. -Start Zofran 4mg q6hrs prn for nausea/vomiting 2. UTI (urinary tract infection) (N39.0: Urinary tract infection, site not specified) Recently went to [facility], after TURBT, due to UTI, bladder pain radiating to back. Took oxybutynin but pain didn't improve so presented to ER. Currently taking cipro, UCx pseudomonas is sensitive to it. wax pot tender around suprapubic region. Azo helps slightly. Symptoms improving CT AP 01/30/24 at [facility]- bladder wall thickening/ possible cystitis (on review, likely from malignancy/recent TURBT, no evidence of perforation or hydro). UA today shows small blood, + nitrates, and large leuks. Burning starting to recur. Recommended cranberry supplement for UTI prevention. Discussed starting estrogen cream to help with vaginal atrophy and UTI prevention. -Urine sent for cul (more content not included)... Normal [facility] Comment on above: Result Comment: Elec tronically Signed By: Lin Dalton MD\.br\Date and Time Signed: 02/29/24 10:06 EDT\.br\Electronically Co-Signed By: Myrna Goodrich\.br\Date and Time Co-Signed: 02/29/24 09:46 EDT [place] 02-04-2024 Screens [id number]#1 .00TIFF Normal [facility] Pathology Noteon 02-01-2024 Pathology Note [id number]#1 .00TIFF Normal [facility] Patient Educationon 02-01-20 24 Patient Education Oncology Bladder Cancer Bladder cancer [...] Follow these instructions at home: ? Take jxfe-gge-iitkaqn and prescription medicines only as told by [...] important. Where to find more information ? [employer] Cancer Society (ACS): cancer.org ? National Cancer [place] (NCI): cancer.gov Contact a health care provider [...] you have wi (more content not included)... [facility] Provider Letteron 02-01-2024 Provider Letter February 01, 2024 SVETLANA SILVA [address] [place] [address] : 1955 To Whom It May Concern, Please excuse Jahaira Kaylah from patient from work due today 02/01/2024 due to accompanying her mother to and from her appointment. If you have any questions feel free to reach out at the number listed below. Sincerely, [facility] [address] [address] [facility] Urology Office/Clinic Noteon 02-01-2024 Urology Office/Clinic Note Chief Complaint Pt is here for PO TURBT HPI Staff F/u to review path report from TURBT done 01/23/24. Last seen in office 01/17/24. Dx: bladder mass, gross hematuria, former smoker. CT AP w con and CXR done 01/17/24 at [facility]. S/p cysto done 01/21/24. Dysuria: mild [...] chemotherapy. We discussed that there are no onso-fe-nfwu trials comparing cystectomy with bladder preservation therapy. [...] infection, site not specified) Recently went to [facility], after TURBT, due to UTI, bladder pain radiating to back. Took oxybutynin but pain didn't improve so presented to ER. Currently mirta (more content not included)... [facility] Comment on above: Result Comment: Elec tronically Signed By: Sha SINGLETARY, Lin Caldera\.br\Date and Time Signed: 02/01/24 16:30 EDT\.br\Electronically Co-Signed By: Sana Patricia\.br\Date and Time Co-Signed: 02/01/24 14:04 EDT Lab Reportson 01-24-2024 Lab Reports [id number] #1.00TIFF [facility] Operative Reporton Operative Report [id number]#1. 00TIFF [facility] RAD - MISCon 01-24-2024 RAD - MISC [id number]#1 .00TIFF [facility] RAD - MISC [id number]#1 .00TIFF [facility] RAD - MISC [id number]#1. 00TIFF [facility] [place] 01-23-2024 L Specimen: [id number] Received: 01/24/24 Status: DAKOTAH Chase Num: [id number] Spec Type: Surgical Subm Dr: Lin Dalton MD Tissues: A Urinary Bladder - TUR (BLADDER TUMORS) Procedures: HE/10, Gross/Micro L5 Age/ Patient Sex Location Account Attending Physician Svetlana Silva 68/F [facility] [id number] Lin Dalton MD SPEC NUM: [id number] RECD: 01/24/24 STATUS: DAKOTAH CHASE NUM: [id number] JULIA: 01/23/[address]: Lin Dalton MD ENTERED: 01/24/[address] [facility] [address]: Kevin Doe SPEC TYPE: Surgical DEPT: STEPHANY LOVE ORDERED: , Gross/Micro L5 ORDERED: , Gross/Micro L5 Pathological [...] representatively submitted in cassettes A1?A5. CPT Codes 66515 -------- -------- Specimen: [id number] Received: 01/24/24 Status: DAKOTAH Chase Num: [id number] Spec Type: Surgical Subm Dr: Lin Dalton MD Tissues: A Urinary Bladder - TUR (BLADDER TUMORS) Procedures: , Gross/Micro L5 -------- Patient: Svetlana Silva [id number] (Continued) -------- Signed (signature on file) Pasquale Brumfield MD 01/30/24 1417 Normal [facility] Consent for Procedure/Surger yon 01-22-2024 Consent for Procedure/Surgery [id number]#1. 00TIFF Normal [facility] Urine Cytology ( Labs)on 01-22-2024 Microscopic exam Cytology (U) [Interp] Diagnosis Info Invalid Interpretation Code [facility] Comment on above: Result Comment: A:Ur ine,Urine:Voided Interpretation - MicroScopic Description - Adequacy - Gross Description Site ID:A color Yellow fixative Alcohol Specimen designated Urine received in alcohol preservative and labeled with the patient?s name, consists of 90ml slightly cloudy yellow fluid. Electronically signed by : on: 01/22/2024 15:40:59 Performed By: #### 1 [id number] #### [address] [address] Consent for Procedure/Surger yon 01-21-2024 Consent for Procedure/Surgery [id number]#1 .00TIFF Normal [facility] Consent for Procedure/Surgery [id number]#1. 00TIFF Normal [facility] Consent for Treatmenton 01-11 Consent for Treatment [id number]#1 .00TIFF Normal [facility] Inpatient Patient Summaryon 01-21-2024 Inpatient Patient Summary [place] [id number] Clinical Summary Person Information Name: SVETLANA SILVA Age: 68 Years : 1955 Sex: Female PCP: NONE, XXXX Marital Status: Race: White Ethnicity: Non- or Language: Tamazight Visit Id: Visit Reason: BLADDER MASS Speciality: Acuity: Enc Type: Outpatient Med Service: Surgery Arrival: 01/21/2024 08:15:39 Discharge: Dispo Type: Address: [address] [place] [address] [address] [facility] [id number] Provider Notes: Diagnosis: Bladder mass; Gross hematuria [...] Information: EU - Cystoscopy Discharge Instructions (CUSTOM) [facility] IntraOperative Documentson 0 01-21-2024 IntraOperative Documents [id number]#1 .00TIFF [facility] Main OR Intraoperative Recor don 01-21-2024 Main OR Intraoperative Record IntraOp Document Type FTURO Summary Primary Physician: Lin Dalton MD Finalized Date/Time: 01/21/24 08:55:32 Pt. Name: ARIS SILVACELINE Ceron/Sex: 1955 Female Med Rec #: [id number] Physician: Lin Dalton MD Financial #: [id number] Pt. Type: O Room/Bed: / Admit/Disch: 01/21/24 [...] Laura C Role Performed Surgeon - Primary Records Management Manager - Primary Scrub - Primary Time [...] Prep Agents Betadine Solution Skin. Condition Intact, [place], Warm, and Description n/a Dry Additional None [...] 01/21/24 08:55 Jessica Goodrich 01/21/24 08:55 Normal [facility] Main OR Preoperative Recordo n 01-21-2024 Main OR Preoperative Record Holding Area Document Type FTURO Summary Primary Physician: Lin Dalton MD Finalized Date/Time: 01/21/24 08:30:18 Pt. Name: SVETLANA SILVA Key De JesusB./Sex: 1955 Female Med Rec #: [id number] Physician: Lin Dalton MD Financial #: [id number] Pt. Type: O Room/Bed: / Admit/Disch: 01/21/24 08:15:39 - Institution: Case Times Holding FTURO Pre-Care Text: Verifies consent for planned procedure, identifies individual values and wishes concerning care, includes family members in perioperative teaching Secures patient's records' belongings, and valuables, maintains patient's dignity and privacy, and maintains patient confidentiality Entry 1 In Holding 01/21/24 08:26:00 Outcomes Met? Yes Last Modified By: Amado RN, Zehra CHAVEZ 01/21/24 08:26:18 Post-Care Text: The [...] SCOTT Fischer RN, Ruthann 01/21/24 08:30 Normal [facility] Operative Reporton Operative Report Patient: SVETLANA SILVA Age: 68 years Sex: Female : 1955 Associated Diagnoses: None Author: Lin Dalton MD Procedure Operative Information Details: Date/ Time: 01/21/2024 08:52:00. Pre-Op Dx: Gross hematuria (YTB09-RR R31.0, Discharge, Medical), Bladder mass (ZGZ56-RC N32.89, Discharge, Medical). Post-Op Dx: Same. Anesthesia [...] mass. Risks/benefits again discussed. CTU 01/17/24 at [facility] - 4.8 x 2.1 cm irregular left bladder wall mass, appears to be continuous with muscle on personal review. No upper tract filling defects, no lymphadenopathy. CXR - no mets. COPD changes (hyperexpansive). Normal [facility] Comment on above: Result Comment: Elec tronically Signed By: Lin Dalton MD\.br\Date and Time Signed: 01/21/24 08:58 EDT Outpatient Surgery Discharge Instructionon 01-21-2024 Outpatient Surgery Discharge Instruction [place] [id number] Patient Discharge Instructions PERSON INFORMATION Name: SVETLANA [...] to serve you. Thank you for choosing [facility] Normal [facility] ED Note-Physicianon 01-18-20 ED Note-Physician [id number]#1 .00TIFF Normal [facility] RAD - CT Reporton 01-18-2024 RAD - CT Report [id number]#1. 00TIFF Normal [facility] RAD - CT Report [id number]#1 .00TIFF Normal [facility] RAD - MISCon 01-18-2024 RAD - MISC [id number]#1 .00TIFF Normal [facility] - MIS [id number]#1. 00TIFF Normal [facility] Urology Office/Clinic Noteon 01-18-2024 Urology Office/Clinic Note HPI Staff 68 year old female New Pt. seen in [facility] 01/13/24 due to hematuria associated with [...] new to our office due to recent [facility] ER visit for gross hematuria and suspected bladder mass. Hx of COPD. Not currently on oxygen. States her stats are in the 90s. Pt here with granddaughter today. BBS 26 Hx of partial hysterectomy. 1. Bladder mass (N32.89: Other specified disorders of bladder) Pt presented to [facility] ER 01/13/24 for eval of hematuria [...] UTI. CT AP wo IV con 01/13/24 [facility] - shows asymmetric focal thickening of [...] on any blood thinners. No hx of OR or stroke. Pt states her doctor thinks she may of had a stroke when she had COVID, but never confirmed. -Present to the ER if pt is unable to void due to clots -Increase fluids to prevent clots -Urine sent for cytology today -Will schedule CT AP w/ IV and delayed phase to complete urogram @ [facility] STAT prior to TURBT for staging [...] for indwell (more content not included)... Normal [facility] Comment on above: Result Comment: [...] Following Appointments Follow Up with Sha SINGLETARY, Lin Caldera, KYLE, URO When: Where: Medications What How Much [...] including vitamins, herbs, eye drops, creams, and ufcp-vaz-itlsqyv medicines. ? Any problems you or family members have had with anesthetic medicines. ? Any bleeding problems you have. ? Any surgeries you have had. ? Any medical conditions you have, including recent urinary tract infections. ? Whether you are or may be . What are the risks? General (more content not included)... Normal [facility] Formson 01-17-2024 Forms [id number]#1. 00TIFF [facility] Patient Educationon 01-17-20 24 Patient Education [...] including vitamins, herbs, eye drops, creams, and zlyg-xpf-mjshpek medicines. ? Any problems you or family [...] tells you to take them. ? Taking hlvx-nlc-gvsfwqz medicines, vitamins, herbs, and supplements. General instructions [...] as y (more content not included)... Normal [facility] [place] 01-17-2024 Screens [id number]#1 .00TIFF Normal [facility] Urine Cytology ([facility])on 0 01-17-2024 Method of Extraction Voided Normal [facility] Comment on above: Performed By: #### 1 [id number] #### [facility] [address] Number of Jars 1 Invalid Interpretation Code [facility] Comment on above: Performed By: #### 1 [id number] #### [facility] [address] [place] [address] Specimen Urine Normal [facility] Comment on above: Performed By: #### 1 [id number] #### [facility] [address] [facility] [place] [address] Type of Service Technical Only Normal [facility] Comment on above: Performed By: #### 1 [id number] #### [facility] [address] [place] [address] Office Visit (Cardiology)on 03-30-2023 Follow-up visit Diagnoses/Problems Assessed Dyspnea (786.09) (R06.00) Bagsr-8-jxrwditengm 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) Centrilobular emphysema (492.8) (J43.2) Former smoker (V15.82) (Z87.891) HTN (hypertension) (401.9) (I10) Mixed hyperlipidemia (272.2) (E78.2) Overweight with body mass index (BMI) of 26 to 26.9 in adult (278.02,V85.22) (E66.3,Z68.26) Orders Overweight with body mass index (BMI) of 26 to 26.9 in adult Healthy Weight Tips; Status:Complete - Retrospective Authorization; Done: [id number] Some eating tips that can help you lose weight.; Status:Complete - Retrospective Authorization; Done: [id number] SocHx: Former smoker Tobacco Use Screening; Status:Complete; Done: [id number] Patient Instructions Please bring all medicines, vitamins, [...] negative for complaint. Vitals Vital Signs Recorded: [id number] 10:39AM Heart Rate76, L Radial Udtambet411, LUE, Sitting Bpqwddzpc17, LUE, Sitting Height4 ft 11 in Mubxda779 lb BMI Hxobhsgeqg45.86 kg/m2 BSA Calculated1.55 Tobacco Useb) No PHQ-2 [...] Pulmonary: n (more content not included)... Normal [place] Tobacco Screening.on 023 Adult depression screening assessment No [facility] 250 DO Work Phone: Fall risk assessment a) No falls within the last year [facility] Work Phone: Tobacco use status CP b) No [facility] DO Work Phone: Echocardiogramon 03-09-2023 Echocardiography [facility] [address] [place] [address], [address] [place] [address] TRANSTHORACIC ECHOCARDIOGRAM REPORT Patient Name: SVETLANA SILVA Reading Physician: [id number] Benny Kang MD Study Date: 03/09/2023 Referring Physician: BENNY KANG MRN/PID: [id number] PCP: Accession/Order#: [id number] Department Location: [facility] [place] Date of : 1955 Fellow: Gender: F Nurse: Admit Date: [employer] Log[employer] Manager: Fatuma Vidales RDCS, RVT Height: 149.86 cm CC Report to: Weight: 59.88 kg Study Type: Echocardiogram BSA: 1.55 m2 Blood Pressure: 140 /78 mmHg Diagnosis/ICD: R06.00-Dyspnea, unspecified Indication: HTN, Hyperlipidemia, Former Smoker, Centrilobular Emphysema, Alpha-1 Antitrysin Deficiency, Overweight Procedure/CPT: Echo Complete w Full Doppler-14390 Study Detail: The following Echo studies were [...] 0.8 m/s (0.6-0.9m/s) PV Max P.7 mmHg [id number] Benny Kang MD Electronically signed on 03/10/2023 at 4:28:00 PM Final Normal [facility] CARDIAC STRESS/REST INJE CTIONon 03-09-2023 [facility] CARDIAC STRESS/REST INJECTION Patient Name: SVETLANA SILVA STUDY: MYOCARDIAL PERFUSION STRESS TEST WITH LEXISCAN Performing facility: [facility], [address] [place] [address], [address], [place], [place] [address] Provider: Benny Kang MD PCP: Dr. David Allan Supervising provider: Polina Palomino MD, [facility] INDICATION: Dyspnea HISTORY: Gender: F; Age: 67 y/o ; Height: 0 cm; Weight: 0 kg. High Cholesterol; HTN; SOB; COPD; Emphysema Quit smoking 3.5 years ago. COMPARISON: No comparison. 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 : dyspnea Overweight with body mass index (BMI) of 26 to 26.9 in adult Healthy Weight Tips; Status:Complete; Done: [id number] Some eating tips that can help you lose weight.; Status:Complete; Done: 84Dcz3542 SocHx: Former smoker Tobacco Use Screening; Status:Complete; Done: [id number] Patient Instructions Please bring all medicines, vitamins, [...] no sei (more content not included)... Normal [place] Tobacco Screening.on 023 Adult depression screening assessment No [facility]-aBIZinaBOX 250 DO Work Phone: Fall risk assessment b) One or more fall s in the last year [facility] ePAR y 250 DO Work Phone: Tobacco use status [facility]PH[facility] b) No [facility] [place] 250 DO Work Phone: XR CHEST 2 [...] by: FRANCIS ANDERSON Date: 2022-10-17 15:20 Normal [facility] CT LUNG CANCER SCREENINGon 0 08-17-2022 CT [...] THERESA LUCIA Date: 2022-08-17 07:32 Normal [facility] PROF 14(COMP METB)on 022 Albumin [Mass/Vol] 3.9 g/dL Normal 3.4-5.0 [facility] Comment on above: Performed By: #### C MP #### [facility] [address] [place] [address] Dr. Shelby Rodriguez Albumin/Globulin [Mass ratio] 1.2 {ratio} Normal [facility] Comment on above: Performed By: #### C MP #### [facility] [address] [place] [address] Dr. Shelby Rodriguez ALP [Catalytic activity/Vol] 60 U/L Normal 46-116 [facility] Comment on above: Performed By: #### C MP #### [facility] [address] [address] [address] Shelby Rodriguez ALT [Catalytic activity/Vol] 35 U/L Normal 14-59 [facility] Comment on above: Performed By: #### C MP #### [facility] [address] [place] [address] Dr. Shelby Rodriguez Anion gap [Moles/Vol] 10.3 mmol/L Normal [facility] Comment on above: Performed By: #### C MP #### [facility] [address] [address] [address] Shelby Rodriguez AST [Catalytic activity/Vol] 22 U/L Normal 15-37 [facility] Comment on above: Performed By: #### C MP #### [facility] [address] [place] [address] Dr. Shelby Rodriguez Bilirubin [Mass/Vol] 0.5 mg/dL Normal 0.2-1.0 [facility] Comment on above: Performed By: #### C MP #### [facility] [address] [place] [address] Dr. Shelby Rodriguez Calcium [Mass/Vol] 9.4 mg/dL Normal 8.5-10.1 [facility] Comment on above: Performed By: #### C MP #### [facility] [address] [place] [address] Dr. Shelby Rodriguez Chloride [Moles/Vol] 105 mmol/L Normal 98-107 [facility] Comment on above: Performed By: #### C MP #### [facility] [address] [place] [address] Dr. Shelby Rodriguez CO2 [Moles/Vol] 30.5 mmol/L Normal 21.0-32.0 [facility] Comment on above: Performed By: #### C MP #### [facility] [address] [place] [address] Dr. Shelby Rodriguez Creatinine [Mass/Vol] 0.87 mg/dL Normal 0.55-1.02 [facility] Comment on above: Performed By: #### C MP #### [facility] [address] [place] [address] Dr. Shelby Rodriguez EGFR-AF MALAYSIAN >60 Normal >=60 [facility] Comment on above: Performed By: #### C MP #### [facility] [address] [place] [address] Dr. Shelby Rodriguez EGFR-NON AF MALAYSIAN >60 Normal >=60 [facility] Comment on above: Performed By: #### C MP #### [facility] [address] [place] [address] Dr. Shelby Rodriguez Globulin (S) [Mass/Vol] 3.2 g/dL Normal [facility] Comment on above: Performed By: #### C MP #### [facility] [address] [place] [address] Dr. Shelby Rodriguez Glucose [Mass/Vol] 122 mg/dL Critically high 74-106 [facility] Comment on above: Performed By: #### C MP #### [facility] [address] [address] [address] Shelby Rodriguez Potassium [Moles/Vol] 4.8 mmol/L Normal 3.5-5.1 [facility] Comment on above: Performed By: #### C MP #### [facility] [address] [address] [address] Shelby Rodriguez Protein [Mass/Vol] 7.1 g/dL Normal 6.4-8.2 [facility] Comment on above: Performed By: #### C MP #### [facility] [address] [place] [address] Dr. Shelby Rodriguez Sodium [Moles/Vol] 141 mmol/L Normal 136-145 [facility] Comment on above: Performed By: #### C MP #### [facility] [address] [place] [address] Dr. Shelby Rodriguez Urea nitrogen [Mass/Vol] 14.0 mg/dL Normal 7.0-18.0 [facility] Comment on above: Performed By: #### C MP #### [facility] [address] [place] [address] Dr. Shelby Rodriguez Urea nitrogen/Creatinine [Mass ratio] 16.1 mg/mg Normal [facility] Comment on above: Performed By: #### C MP #### [facility] [id number] Shelby Rodriguez Vital Signs Date Time Vital Sign Value Performing Clinician Facility 02-29-2024 09:05-0400 Blood Pressure Location Lin Sha [facility] 02-29-2024 09:05-0400 Diastolic blood pressure 86 mm[Hg] Lin Lue [facility] 02-29-2024 09:05-0400 Heart rate 64 /min Lin Lue [facility] 02-29-2024 09:05-0400 Respiratory rate 16 /min Lin Lue [facility] 02-29-2024 09:05-0400 Systolic blood pressure 142 mm[Hg] Lin Lue [facility] 02-01-2024 13:20-0400 Body temperature 98.6 [degF] Lin Lue [facility] 02-01-2024 13:20-0400 Diastolic blood pressure 61 mm[Hg] Lin Lue [facility] 02-01-2024 13:20-0400 Heart rate 72 /min Lin Lue [facility] 02-01-2024 13:20-0400 Respiratory rate 16 /min Lin Lue [facility] 02-01-2024 13:20-0400 Systolic blood pressure 125 mm[Hg] Lin Lue [facility] 11-28-2023 15:41-0400 Body height 149.9 cm Benny Kang MD Work Phone: [facility] 11-28-2023 15:41-0400 Body mass index (BMI) [Ratio] 25.45 kg/m2 Benny Kang MD Work Phone: [facility] 04-17-2024 15:41-0400 Body weight 57.15 kg Benny Kang MD Work Phone: [facility] 11-28-2023 15:41-0400 Diastolic blood pressure 80 mm[Hg] Benny Kang MD Work Phone: [facility] 11-28-2023 15:41-0400 Heart rate 66 /min Benny Kang MD Work Phone: [facility] 11-28-2023 15:41-0400 Systolic blood pressure 130 mm[Hg] Benny Kang MD Work Phone: [facility] 09-24-2023 18:05-0500 Body height 149.9 cm Shaikh Jerrell SINGLETARY Work Phone: [facility] 09-24-2023 18:05-0500 Body mass index (BMI) [Ratio] 24.64 kg/m2 Shaikh Jerrell SINGLETARY Work Phone: [facility] 09-24-2023 18:05-0500 Body temperature 97 [degF] Shaikh Jerrell SINGLETARY Work Phone: [facility] 09-24-2023 18:05-0500 Body weight 55.34 kg Shaikh Jerrell SINGLETARY Work Phone: [facility] 09-24-2023 18:05-0500 Diastolic blood pressure 80 mm[Hg] Shaikh Jerrell SINGLETARY Work Phone: [facility] 09-24-2023 18:05-0500 Heart rate 90 /min Shaikh Jerrell SINGLETARY Work Phone: [facility] 09-24-2023 18:05-0500 SaO2% (BldA) [Mass fraction] 97 % Shaikh Jerrell SINGLETARY Work Phone: [facility] 09-24-2023 18:05-0500 Systolic blood pressure 132 mm[Hg] Shaikh Jerrell SINGLETARY Work Phone: [facility] 03-30-2023 10:39-0400 Body height 149.86 cm Khan Faermias Work Phone: [facility] 250 DO Work Phone: 03-30-2023 10:39-0400 Body mass index (BMI) [Ratio] 26.86 kg/m2 Shaikh Jerrell Work Phone: [facility] 250 DO Work Phone: 03-30-2023 10:39-0400 Body surface area Derived from formula 1.55 m2 Shaikh Jerrell Work Phone: [facility] 250 DO Work Phone: 03-30-2023 10:39-0400 Body weight 60.33 kg Shaikh Jerrell Work Phone: [facility] 250 DO Work Phone: 03-30-2023 10:39-0400 Diastolic blood pressure 70 mm[Hg] Shaikh Jerrell Work Phone: [facility] 250 DO Work Phone: 03-30-2023 10:39-0400 Heart rate 76 /min Shaikh Jerrell Work Phone: [facility] 250 DO Work Phone: 03-30-2023 10:39-0400 Systolic blood pressure 122 mm[Hg] Khan Jerrell Work Phone: [facility] 250 DO Work Phone: 01-26-2023 11:30-0400 Diastolic blood pressure 92 mm[Hg] Khan Mary Bethwwad Work Phone: [facility] 250 DO Work Phone: 01-26-2023 11:30-0400 Systolic blood pressure 164 mm[Hg] Shaikh Mary Bethwwad Work Phone: [facility] 250 DO Work Phone: 01-26-2023 11:29-0400 Body height 149.86 cm Shaikh Chikawad Work Phone: [facility] 250 DO Work Phone: 01-26-2023 11:29-0400 Body mass index (BMI) [Ratio] 26.66 kg/m2 Shaikh Chikawad Work Phone: [facility] 250 DO Work Phone: 01-26-2023 11:29-0400 Body surface area Derived from formula 1.55 m2 Shaikh Chikawad Work Phone: [facility] 250 DO Work Phone: 01-26-2023 11:29-0400 Body weight 59.88 kg Shaikh Chikawad Work Phone: [facility] 250 DO Work Phone: 01-26-2023 11:29-0400 Diastolic blood pressure 100 mm[Hg] Shaikh Chikawad Work Phone: [facility] 250 DO Work Phone: 01-26-2023 11:29-0400 Heart rate 91 /min Shaikh Mary Bethwwad Work Phone: [facility] 250 DO Work Phone: 01-26-2023 11:29-0400 Systolic blood pressure 184 mm[Hg] Khan Fawwad Work Phone: [facility] 250 DO Work Phone: Encounters Encounter Date Encounter Type Care Provider Facility Start: 03-19-2024 End: 03-19-2024 ambulatory ALEJANDRO DEMPSEYMARTINNAVNEET Facility:[facility] Start: 02-29-2024 End: 02-29-2024 Lab Drop off Lin Dalton [facility] Start: 02-29-2024 End: 02-29-2024 ambulatory Lin Dalton Facility[facility] Start: 02-29-2024 End: 02-29-2024 Patient encounter procedure Lin Dalton [facility] [place] Start: 02-01-2024 End: 02-01-2024 ambulatory Lin Dalton Facility:[facility] Start: 02-01-2024 End: 02-01-2024 Patient encounter procedure Lin Dalton [facility] [place] Start: 01-31-2024 End: 01-31-2024 ambulatory JERRELL Not Available Start: 01-23-2024 End: 01-23-2024 ambulatory Lin Dalton [facility] Work Phone: Start: 01-23-2024 End: 01-23-2024 Departed Referred MD Lin Dalton Work Phone: [facility] Start: 01-23-2024 End: 01-23-2024 ambulatory Lin Dalton Facility:[id number] Start: 01-21-2024 End: 01-21-2024 ambulatory Lin Dalton Facility:[facility] Start: 01-21-2024 End: 01-21-2024 Patient encounter procedure Lin Dalton [facility] Start: 01-17-2024 End: 01-17-2024 Lab Drop off Lin Dalton [facility] Start: 01-17-2024 End: 01-17-2024 ambulatory Lin Dalton Facility:[facility] Start: 01-17-2024 End: 01-17-2024 Patient encounter procedure Lin Dalton [facility] [place] Start: 01-14-2024 ambulatory Lin Dalton Facility:[facility] Start: 12-31-2023 End: 12-31-2023 ambulatory SHAIKH JERRELL Not Available Start: 11-28-2023 End: 11-28-2023 ambulatory [facility]ulatory Start: 11-28-2023 End: 11-28-2023 Office outpatient visit 15 minutes Benny Kang MD Work Phone: [facility] Comment on above: Shortness of breath (Primary Dx); Essential hypertension; Mixed hyperlipidemia; Szioy-7-semogukvtgv deficiency (Multi); Centrilobular emphysema (Multi); Former smoker; BMI 25.0-25.9,adult Start: 11-14-2023 End: 11-14-2023 ambulatory SHAIKH JERRELL Not Available Start: 09-24-2023 End: 09-24-2023 Office outpatient visit 15 minutes Shaikh Jerrell SINGLETARY Work Phone: [facility] Comment on above: Current moderate epi sode of major depressive disorder without prior episode (HCC) (CMS/HCC) (Primary Dx) Start: 09-24-2023 End: 09-24-2023 Orders Only Shaikh Jerrell SINGLETARY Work Phone: [facility] Comment on above: Primary hypertension (CMS/HCC) (Primary Dx) Start: 08-23-2023 End: 08-23-2023 ambulatory SHAIKH JERRELL Not Available Start: 08-02-2023 Patient encounter procedure Shaikh Jerrell SINGLETARY Work Phone: [facility] Start: 08-02-2023 End: 08-02-2023 ambulatory SHAIKH JERRELL Not Available Start: 03-30-2023 Office outpatient vi sit 15 minutes Shaikh Jerrell Work Phone: [facility] 250 DO Work Phone: Start: 03-30-[address] Benny Kang Facility: Start: 03-11-2023 Chart Update Shaikh Jerrell Work Phone: [facility] 250 DO Work Phone: Start: 03-10-2023 Chart Update Shaikh Jerrell Work Phone: [facility] 250 DO Work Phone: Start: 03-09-[address] Benny Kang Facility:[id number] Start: 01-26-2023 Office consultation new/estab patient 60 min Shaikh Jerrell Work Phone: [facility] 250 DO Work Phone: Start: 01-26-[address] Benny Kang Facility: Start: 01-02-2023 ambulatory [facility] . Facility :H1 Start: 10-17-2022 End: 10-18-2022 ambulatory [facility] . Facility:[facility]1 Start: 08-16-2022 End: 08-17-2022 ambulatory [facility] . Facility:[facility]1 Start: 04-20-2022 End: 04-21-2022 ambulatory SHAIKH Natasha ALLAN Facility:H1 Procedures Date Procedure Procedure Detail Performing Clinician Start: 01-23-2024 Transurethral resect ion of bladder neoplasm Lin Ludarian Start: 01-21-2024 Cystoscopy normal (finding) Lin Dalton Start: 03-09-2023 Echocardiography Shaikh Jerrell Work Phone: [...] Screening for malign ant neoplasm of colon [facility] Start: 09-02-2024 End: 09-02-2024 Patient encounter procedure 09/02/2024 1:30 PM EST Office Visit [facility] [address] [facility] [address] [place] [address] Benny Kang MD [address] [facility] [address] [place] [address] [facility] Start: 08-02-2024 Medicare Annual Well ness (AWV) Medicare Annual Wellness (AWV) [facility] Start: 03-04-2024 Screening for malign ant neoplasm of breast Mammogram [facility] Start: 11-22-2023 End: 11-22-2023 Patient encounter procedure 11/22/2023 11:30 AM EDT Office Visit [facility] [address] [place] [phone] Shaikh Allan MD [address] [place] [id number] [facility] Start: 10-05-2023 FUV, Provider: Benny Kang, Status: Pen, Time: 9:20 AM FUV, Provider: Benny Kang, Status: Pen, [facility]: 9:20 [facility]: Start: 09-24-2023 End: 09-24-2023 Patient encounter procedure 09/24/2023 5:45 PM EST Office Visit [facility] [address] [place] [id number] Shaikh Allan MD [address] [place] [id number] [facility] Start: 04-13-2023 COVID-19 Vaccine ( season) COVID-19 Vaccine ( season) [facility] Start: 03-30-2023 FUV, Provider: Benny Kang, Status: Pen, Time: 10:30 AM FUV, Provider: Benny Kang, Status: Pen, Time: 10:30 AM [facility]: Start: 03-09-2023 ECHO, Provider: JOHN PAUL CHANEL [facility] ULTRASOUND 01,[id number], Status: Pen, Time: 10:45 AM ECHO, Provider: XENIA [facility] ULTRASOUND 01,[id number], Status: Pen, Time: 10:45 AM [facility] Work [facility]: Start: 03-09-2023 STRESS NUC, Provider : XENIA [facility] NUCLEAR 01,[id number], Status: Pen, Time: 8:30 AM STRESS NUC, Provider: XENIA [facility] NUCLEAR 01,[id number], Status: Pen, Time: 8:30 AM [facility] Work Phone: Start: 04-26-2021 DTaP/Tdap/Td Vaccine s (1 - Tdap) DTaP/Tdap/Td Vaccines (1 - Tdap) [facility] Start: 2013 Hepatitis B Vaccines (1 of 3 - Risk 3-dose series) Hepatitis B Vaccines (1 of 3 - Risk 3-dose series) [facility] Start: 1993 Screening for malign ant neoplasm of breast Mammogram [facility] Start: 1972 Hepatitis A Vaccines (1 of 2 - Risk 2-dose series) Hepatitis A Vaccines (1 of 2 - Risk 2-dose series) [facility] Start: 1971 Diabetes mellitus screening Diabetes Screening [facility] Start: 1971 Hepatitis C screening Hepatitis C Sc reening [facility] Start: 1953 Lipid panel Lipid Panel [facility] Start: 1953 Medicare Annual Well ness Visit Medicare Annual Wellness Visit (AWV) [facility] Start: 1953 Screening for malign ant neoplasm of colon [facility] Start: 1955 Screening for osteoporosis Bone Density Scan [facility] Immunizations Immunization Date Immunization Notes Care Provider Fa cility 05-26-2023 ABRYSVO - Respirator y syncytial virus (RSV), vaccine, bivalent, protein subunit RSV prefusion F, diluent reconstituted, 0.5 mL, PF Shaikh Jerrell SINGLETARY Work Phone: [facility] 05-24-2023 influenza virus vaccine, unspecified formulation Lin Dalton [facility] 05-24-2023 Influenza, High-dose Seasonal, Quadrivalent, Preservative Free Shaikh Jerrell SINGLETARY Work Phone: [facility] 05-24-2023 Pneumococcal Conjuga te PCV 20 Shaikh Jerrell SINGLETARY Work Phone: [facility] 05-03-2023 pneumococcal conjuga te 20-valent (Prevnar 20) 0.5 ML vaccine Shaikh Jerrell SINGLETARY Work Phone: [facility] 10-27-2022 zoster vaccine recombinant Shaikh Jerrell Work Phone: [facility] 250 DO Work Phone: 08-27-2022 zoster vaccine recombinant Shaikh Jerrell Work Phone: [address] [address] DO Work Phone: 06-03-2022 Fluzone High-Dose Quadrivalent 0.7 ML Intramuscular Suspension Prefilled Syringe Shaikh Jerrell Work Phone: [address] [place] [address] DO Work Phone: 06-03-2022 influenza virus vaccine, unspecified formulation Lin Dalton [facility] 06-03-2022 influenza, seasonal, injectable Benny Kang MD Work Phone: [facility] Work Phone: 08-03-2021 Pfizer-BioNTTopCoder COVID-19 Vacc 30 MCG/0.3ML Intramuscular Suspension Shaikh Jerrell Work Phone: [facility] 06-02-2021 Fluzone High-Dose Quadrivalent 0.7 ML Intramuscular Suspension Prefilled Syringe Shaikh Jerrell Work Phone: [place] [address] DO Work Phone: 06-02-2021 influenza virus vaccine, unspecified formulation Lin Sha [facility] 04-25-2021 diphtheria, tetanus toxoids and pertussis vaccine Shaikh Chikamarie Work Phone: [facility] 04-25-2021 tetanus and diphther ia toxoids, adsorbed, preservative free, for adult use (2 Lf of tetanus toxoid and 2 Lf of diphtheria toxoid) Benny Kang MD Work Phone: [facility] Work Phone: 12-23-2020 Pfizer-BioNTech COVID-19 Vacc 30 MCG/0.3ML Intramuscular Suspension Khan Fawwad Work Phone: [facility] 12-02-2020 Pfizer-BioNTech COVID-19 Vacc 30 MCG/0.3ML Intramuscular Suspension Khan Fawwad Work Phone: [facility] 07-21-2014 influenza virus vaccine, unspecified formulation Lin Lue [facility] 07-21-2014 influenza, seasonal, injectable Khan Fawwad Work Phone: [facility] 250 DO Work Phone: 06-21-2013 influenza virus vaccine, unspecified formulation Lin Lue [facility] 06-21-2013 influenza, seasonal, injectable Khan Fawwad Work Phone: [facility] 250 DO Work Phone: 08-31-2012 influenza virus vaccine, unspecified formulation Lin Lue [facility] 08-31-2012 influenza, seasonal, injectable, preservative free Khan Fawwad Work Phone: [facility] 250 DO Work Phone: Payers Date Payer Category Payer Self-pay [id number] 2018 Medicare [id number] 1959 Medicare [id number] 1959 Private Health Insurance [facility] 2006 1953 Unknown [id number] 2.16.84 [id number] 1953 Unknown [id number] 2.16.84 0.1.380054.3.579.2.593 1953 Unknown [id number] 2.16.84 0.1.084519.3.579.2.593 1953 Unknown [id number] 2.16.84 0.1.740211.3.579.2.593 1953 Unknown [id number] 2.16. 840.1.880057.3.579.2.356 1953 Unknown [id number] 2.16. 840.1.582934.3.579.2.356 1953 Unknown [id number] 2.16. 840.1.965706.3.579.2.356 1953 Unknown [id number] 2.16.8 40.1.795659.3.579.2.1068 1953 Unknown [id number] 2.16.8 40.1.532521.3.579.2.1244 1953 Unknown [id number] 2.16.84 0.1.281488.3.579.2.1259 1953 Unknown [id number] 2.16.84 0.1.005533.3.579.2.1259 1953 Unknown [id number] 2.16.84 0.1.931563.3.579.2.1259 1953 Unknown [id number] 2.16.84 0.1.268072.3.579.2.1259 1953 Unknown [id number] 2.16.84 0.1.202717.3.579.2.1259 1953 Unknown [id number] 1955 Unknown [id number] 2.16.8 [id number] 1955 Unknown [id number] 2.16.8 [id number] 1955 Unknown [id number] 2.16.8 [id number] 1955 Unknown [id number] 2.16.8 [id number] 1955 Unknown [id number] 2.16.8 [id number] 1955 Unknown [id number] 2.16.8 [id number] 1955 Unknown [id number] 2.16.8 [id number] Medicaid [id number] Private Health Insurance [id number] [id number] Unknown Unknown [id number] 2.16.8 [id number] Social History Date Type Detail Facility Start: 08-29-2023 End: 11-28-2023 No caffeine use No caffeine use [place] [id number] DO Work Phone: Start: 08-29-2023 End: 02-29-2024 Tobacco smoking status [facility] Ex-smoker [facility] Start: 10-25-2017 End: 06-28-2020 History of tobacco use Current smoker [facility] End: 06-28-2020 History of tobacco use Cigarette Smoker [facility] Start: 08-29-2023 End: 11-28-2023 Tobacco use and exposure Smokeless tobacco non-user [facility] Start: 08-29-2023 End: 11-28-2023 Alcohol intake Lifetime non-drinker (finding) [facility] Start: 08-29-2023 End: 11-28-2023 Tobacco use panel [facility] Start: 07-18-2023 Alcohol Comment caffeine: 1-2 cups per day [facility] Start: 1955 Sex Assigned At Not on file [facility] Start: 11-18-2023 End: 11-28-2023 Exposure to SARS-CoV-2 (event) Not sure [facility] Start: 1955 Sex Assigned At Female [facility] Tobacco smoking status Never [facility] NEGATED: Highlighted rowStart: NINF History of tobacco use Passive smoker [facility] Medical Equipment Procedure Code Equipment Code Equipment Original Text Equipment Identifier Dates Phacoemulsification of cataract with intraocular lens implantation LENS ACRYSOF IOL [id number] FDA Start: 09-27-2017 Phacoemulsification of cataract with intraocular lens implantation LENS ACRYSOF IOL [id number] FDA Start: 10-25-2017 Functional Status Date Assessment Result Facility 02-29-2024 Functional Status N/A [facility] 02-01-2024 Functional Status N/A [facility] Clinical Notes 01-26-2023 to 03-19-2024 Benny Kang MD - 11/28/2023 2:50 PM EDTPatient Geramin Allan MD - 09/24/2023 6:31 PM Alberto Allan MD - 09/24/2023 5:45 PM EST Note Date & Type Note Facility 03-19-2024 Note HNO ID: [id number] Author: ALEJANDRO WARE MD Service: ? Author Type: Physician Type: Progress Notes Filed: 03/19/2024 13:21 Note Text: [facility] NEW PATIENT HISTORY AND PHYSICAL EXAM PATIENT INFO: Svetlana Silva 68 year old REFERRING M.D.: No referring provider defined for this encounter. CHIEF COMPLAINT: Bladder cancer HISTORY:Svetlana Silva is a 68 year old female presents for discussion of bladder cancer. had lap appy Vaginal partial histerectomy, PMHx- abdominal wall hernia, partial hysterectomy, COPD, former smoker, HTN, HLD, UTI HPI: (determine 4 of 8) 1-Duration: 2023 2-Location: Bladder 3-Severity: moderate 4-Context: pathology TURBT 01/23/2024- High-grade urothelial carcinoma w/ lamina propria and muscularis propria invasion PAST MEDICAL HISTORY: No past medical history on file. PAST SURGICAL HISTORY: No past surgical history on file. CXR - 01/21/2024 IMPRESSION: No acute infiltrate or evidence of cardiac decompensation. Chronic changes are noted. The overall appearance of the chest is unchanged. CT a/p 01/17/2024 IMPRESSION: 1. Irregular 4.8 cm mass along the left bladder wall suggestive of neoplasm. Recommend cystoscopy. 2. No obstructive uropathy.. REVIEW OF SYSTEMS: (positive in bold) GENERAL: Recent weight gain/loss, fatigue, weakness, fever, night sweats MUSCLE/JOINTS/BONE: Back pain, joint pain, joint swelling CARDIOVASCULAR: Chest pain, heart attack GASTROINTESTINAL: Abdominal pain, fecal incontinence HEAD AND NECK: Blurry vision, double vision, cataracts, loss of vision, dryness NEUROLOGIC: Numbness, tingling SKIN: Redness, rash, nodules/bumps, hair loss, color change in hands or feet RESPIRATORY: Cough, shortness of breath ENDOCRINE: Diabetes, thyroid problems THROAT: Frequent sore throats, hoarseness PHYSICAL EXAM: Constitutional: Well-nourished, No physical deformities. Normally developed. Good grooming. Respiratory: No labored breathing, no use of accessory muscles. Cardiovascular: Normal temperature, normal extremity pulses, no swelling, no varicosities. Skin: No paleness, no jaundice, no cyanosis. No lesion, no ulcer, no rash Neurologic/Psychiatric: Oriented to time, oriented to place, oriented to person. No depression, no anxiety, no agitation. Musculosckeletal: Normal gait and station of head and neck Abdomen: Abdomen soft nontender nondistended with no masses. Small infraumbilical laparoscopic incision. Impression: 68-year-old female with COPD and recent bladder mass seen on imaging. Resection by outside urologist revealed invasive T2 bladder cancer. We talked about completion of staging with CT chest. We talked about consideration of neoadjuvant chemotherapy. She says that her local urologist is referring her to an oncologist closer to home. If she is able to receive neoadjuvant chemo this is preferable. If not we can look at dates for cystectomy. If she completes chemotherapy can consider cystectomy 4 to 6 weeks after her last treatment. I described cystectomy in detail. The risks, benefits and alternatives of a open or robotic radical cystectomy were discussed with the patient. These include, but are not limited to bleeding, infection, injury to adjacent structures (such as the rectum, bowel, or major blood vessels). There can also be wound infections, hernias and rarely chronic neuropathic pain or numbness. We also talked about medical complications, such as cardiac (OR, etc), respiratory (pneumonia, etc), renal (Acute kidney injury, etc), Blood clots (DVTs, PEs, etc), as well as other complications. We talked about the possibility of urine leak requiring intervention. We also talked aboutpossible bowel complications, including obstruction, bowel leak, fistula formation or ischemia requiring reoperation. We talked about need for resection of the uterus, tubes and ovaries (if present) and anterior vaginal wall. Patient understood these risks, questions were answered and he agreed to proceed. We also discussed the main forms of urinary diversion in great detail, including the advantages and disadvantages. For all forms of diversion, we discussed the risks including but not limited to infection, absess, fistula, stricture, and for diversions with a stoma, we discussed the risks of stomal stenosis or parastomal hernia. We also discussed risk of metabolic abnormalities and need for long-term followup for this. For ileal conduit, we discussed the effects on quality of life in particular and also risk of cancer recurrence in the retained urethra. For all forms of diversion we also discussed risk to upper tracts on long-term basis and risk of cancer recurrence in the upper tracts as well. In summary, we discussed the procedure, risks, potential benefits, and reasonable alternatives, and we also discussed the fact that if this patient elected surgical therapy, that we would ope (more content not included)... [facility] 02-29-2024 Evaluation + Plan note Diagnostic Tests PendingUrine Culture 02/29/24 [facility] 02-29-2024 Hospital Discharg e instructions Patient Education [...] cells. Follow these instructions at home: Take ownm-irm-brqfzel and prescription medicines only as told by [...] is important. Where to find more information Canadian Cancer Society (ACS): cancer.org National Cancer [place] (NCI): cancer.gov Contact a health care provider [...] provider. Document Revised: 07/10/2022 Document Reviewed: 07/10/2022 [employer] Patient Education 2022 [employer]. Follow Up Care 02/01/2024 14:08:57 With:Sha SINGLETARY, KYLE Aguilera, URO Address: When: Unknown [facility] 02-29-2024 Note Patient Education Oncology Bladder [...] Follow these instructions at home: ? Take yojr-ezv-utexjwf and prescription medicines only as told by [...] important. Where to find more information ? Canadian Cancer Society (ACS): cancer.org ? National Cancer [place] (NCI): cancer.gov Contact a health care provider [...] discuss any q (more content not included)... [facility] 02-01-2024 Hospital Discharg e instructions Patient Education [...] cells. Follow these instructions at home: Take sjpt-ckt-tmfithz and prescription medicines only as told by [...] is important. Where to find more information Canadian Cancer Society (ACS): cancer.org National Cancer [place] (NCI): cancer.gov Contact a health care provider [...] provider. Document Revised: 07/10/2022 Document Reviewed: 07/10/2022 [employer] Patient Education 2022 [employer]. Follow Up Care 01/25/2024 10:58:20 With:Sha SINGLETARY, Lin Caldera URL, URO Address: When: Unknown [facility] 01-21-2024 Hospital Discharg e [...] appointment for TURBT, possible left ureteral stent [facility] 01-21-2024 Note [id number] [facility] 01-21-2024 Note Cystoscopy ? Voiding [...] you have a fever over 100 degrees. [facility] 01-17-2024 [facility] Discharg e instructions Patient Education [...] including vitamins, herbs, eye drops, creams, and zwwu-jad-sakazma medicines. Any problems you or family members [...] provider tells you to take them. Taking bcxf-vst-diesmvy medicines, vitamins, herbs, and supplements. General instructions [...] provider. Document Revised: 08/04/2022 Document Reviewed: 08/04/2022 [employer] Patient Education 2022 [employer]. 01/17/2024 10:58:38 Cystoscopy Cystoscopy Cystoscopy is a [...] including vitamins, herbs, eye drops, creams, and vkqh-trl-kfrrtdy medicines. Any problems you or family members [...] provider tells you to take them. Taking wrzs-jcn-ykdrxze medicines, vitamins, herbs, and supplements. Tests You [...] Follow these instructions at home: Medicines Take twiy-oza-kgnehpa and prescription medicines only as told by [...] provider. Document Revised: 04/12/2022 Document Reviewed: 03/11/2021 [employer] Patient Education 2022 [employer]. Follow Up Care 01/14/2024 11:56:48 With:Sha SINGLETARY, KYLE Aguilera, URO Address: When: Unknown [facility] 11-28-2023 History of Presen t illness [...] Up In Cardiology 3. Mixed hyperlipidemia 4. Kjhny-2-zrccjxaetbd deficiency (Multi) 5. Centrilobular emphysema (Multi) 6. Former smoker 7. BMI 25.0-25.9,adult Scribe Attestation By signing my name below, I, Iesha Javed LPN , Scribdarina attest that this documentation has been prepared [...] discussion and plan. documented in this encounter [facility] Work Phone: 11-28-2023 Instructions Iesha Roper [...] instructions on exercise. documented in this encounter [facility] Work Phone: 09-24-2023 History of Presen [...] major depressive disorder without prior episode (HCC) ([facility]/HCC) - Primary Patient was seen last [...] weeks (around 11/05/2023). documented in this encounter [facility] 01-26-2023 History of Presen t illness [...] function test, lab work and remote echo1.Plan -[facility] 250 DO Work Phone: Chief complaint Narrative - Reported SVETLANA SILVA is being seen for a consultation for shortness of breath. [facility] 250 DO Work Phone: Evaluation + Plan note Future Appointments Appointment Date:01/18/2024 10:30:00 AM Scheduled Provider: Location:[facility] Appointment Type:Urology CALL PAT FT Appointment Date:01/21/2024 08:00:00 AM Scheduled Provider: Location:[facility] Appointment Type:Urology FT [facility] Evaluation + Plan note Future Appointments Appointment Date:01/18/2024 10:30:00 AM Scheduled Provider: Location:[facility] Appointment Type:Urology CALL PAT FT Appointment Date:01/21/2024 08:00:00 AM Scheduled Provider: Location:[facility] Appointment Type:Urology FT Diagnostic Tests PendingUrine Cytology ([facility]) 01/17/24 [facility] Evaluation + Plan note Future Appointments Appointment Date:02/29/2024 09:15:00 AM Scheduled Provider:Lin Dalton MD Location:[facility] Appointment Type:URO Office Visit [facility] Evaluation + Plan note [facility] Evaluation note Diagnosis Primary hypertension (CMS/HCC)- Primary Unspecified essential hypertension [facility] Current moderate episode of major depressive disorder without prior episode (HCC) (CMS/HCC)- Primary [facility] Diagnosis Shortness of breath- Primary Essential hypertension Unspecified essential hypertension Mixed hyperlipidemia Fepxy-4-cuyocrvrrsh deficiency (Multi) Skwwq-4-pjmyzonvchq deficiency Centrilobular emphysema (Multi) Former smoker Personal history of tobacco use, presenting hazards to health BMI 25.0-25.9,adult documented in this encounter [facility] Work Phone: Evaluation noteNo assessment information available [facility] Work Phone: History of Present illness [...] her back in 6 months and follow-up [facility] 250 DO Work Phone: Hospital course Narrative No data available for this section [facility] Hospital Discharge instructions No data available for this section [facility] No data available for this section [facility] Reason for referral (narrative)* Consultation (Routine) - Authorized Specialty Diagnoses / Procedures Referred By Contac t Referred To Contact Cardiology Diagnoses Essential hypertension Procedures Follow Up In Cardiology Benny Kang MD [address] [facility] [address], [address] [address] Benny Kang MD [address] [address] Referral ID Status Reason Start Date Expiration Date V isits Requested Visits Authorized [id number] Authorized 11/28/2023 11/27/2024 1 1 [facility] Work Phone: Summary Purpose Family History [...] and echo. Reason for Referral Referred by: hSa SINGLETARY, Lin Caldera Additional Source Comments INFORMATION SOURCE (unrecogn ized section and content) DATE CREATED AUTHOR 12/23/2022 [facility] DATE CREATED AUTHOR AUTHOR'S ORGANIZ ATION 03/31/2023 [facility] DATE CREATED AUTHOR AUTHOR'S ORGANIZ ATION 03/31/2023 [employer] DATE CREATED AUTHOR AUTHOR'S ORGANIZ ATION 04/13/2023 [facility] DATE CREATED AUTHOR AUTHOR'S ORGANIZ ATION 11/30/2023 [facility] DATE CREATED AUTHOR AUTHOR'S ORGANIZ ATION 02/01/2024 [facility] DATE CREATED AUTHOR AUTHOR'S ORGANIZ ATION 02/01/2024 [facility] EPIC DATE CREATED AUTHOR AUTHOR'S ORGANIZ ATION 02/05/2024 Reddy Darvin [facility] DATE CREATED AUTHOR AUTHOR'S ORGANIZ ATION 03/01/2024 Reddy [place] [facility] DATE CREATED AUTHOR AUTHOR'S ORGANIZ ATION 03/04/2024 Reddy Darvin [facility] DATE CREATED AUTHOR AUTHOR'S ORGANIZ ATION 03/21/2024 [facility] Care Teams (unrecognized sec tion and content) Tooth Cutter Contact Wheel Relationship Specialty Start Date End Date Shaikh Allan MD PCP - General Internal Medicine 06/07/23 Tooth Cutter Contact Wheel Relationship Specialty Start Date End Date Shaikh Allan MD [address] [facility] [place] [address] PCP - General Internal Medicine 09/24/23 Tooth Cutter Contact Wheel Relationship Specialty Start Date End Date Shaikh [...] BE BASED ON THE PRIMARY CLINICAL RECORDS. [facility] CenterMedallion [facility]. provides no warranty or guarantee of the accuracy or completeness of information in this document.
--- OUTSIDE RECORDS SUMMARY | 2024-03-28 09:02 | XMS_ITS | CCD ---
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 Álvaro Fritz Referring Unavailab le Traboulangeles, Dr. Velasquez Attending Unavaila ble Trabfariba, Dr. Velasquez Referring Unavaila ble Traboulssi, Dr. Velasquez Attending Unavaila ble Traboulangeles, Dr. Velasquez Referring Unavaila ble Traboulsusyi, Dr. Velasquez Attending Unavaila ble Jorge Luis, Dr. Velasquez Attending Unavaila raul Allan MD, [facility] Primary Care Provider Shaik Allan MDh [...] Drug Allergy Nausea (finding) [facility] (2 sources) Codeine; 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: [CODEINE] Drug Allergy 7 [facility] (11 sources) Codeine; 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: [Codeine Derivatives] Drug Allergy 9 Nausea Only, GI intolerance, Other, Nausea/vomiting , Nausea (finding) [facility] (1 source) Codeine Drug Allergy 8 [facility] Repository Medications Current Medications Medication Drug Class(es) [...] Refill(s) 0 Start Date: 02/01/24 Status: Ordered [id number] 200 actuat albuterol 0.09 mg/actuat metered dose [...] 2 times per week after for maintenance., [facility], 150, cm, 02/29/24 9:07:00 EDT, Height/Length [...] 1 puff(s) by inhalation twice daily Ipratropium [place] (Atrovent Hfa) 17 mcg/actuation HFA aerosol inhaler [...] day(s), # 7 tab(s), Refills(s) 0, Pharmacy: [facility], 150, cm, 02/29/24 9:07:00 EDT, [...] day(s), # 84 tab(s), Refills(s) 0, Pharmacy: [facility], 150, cm, 02/29/24 9:07:00 EDT, Height/Length [...] nutritional; endocrine; and metabolic disorders (6 sources) Ixiui-4-kcnzaoycych deficiency; 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: [Veuew-6-hlmgsbdimds deficiency] Onset: 08-30-2023 11-28-2023 Chronic Other nutritional; endocrine; and metabolic disorders (2 sources) Tghrz-4-jqnlegxqzaq deficiency; 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: [Jcims-3-bmdmippqyus deficiency (Multi)] Onset: 08-30-2023 Chronic Other nutritional; [...] Test Name Value Interpretation Reference Range Facility [facility] 03-19-2024 CNOV Office Visit (URFMOB ) SVETLANA SILVA ([id number]) 1955 F Date Time Provider Department 03/19/24 1:30 PM ALEJANDRO WARE During your visit today, we recorded the following information about you: Pulse Blood pressure 81/minute 116/61 Alejandro Ware MD 03/19/2024 1:21 PM Addendum [facility] NEW PATIENT HISTORY AND PHYSICAL [...] talked about medical complications, such as cardiac (NV, etc), respiratory (pneumonia, etc), renal (Acute kidney [...] of cancer (more content not included)... Normal [facility] C Urineon 03-02-2024 Bacteria identified Cx Nom [...] Locations R1: This test was performed at: [facility], [address] [place] [address], [address]- , , [facility] Comment on above: Performed By: #### 2 [id number] #### [facility] [address] [place] [address] Ambulatory Visit Summary 0 02-29-2024 Ambulatory Visit [...] Someone Will Contact You Regarding These Appointments [facility] External Ambulatory Referral, Service not offered at [facility], Urology, Dr. Ware @ [facility], 02/29/24 9:34:00 EDT, Bladder cancer Medications What [...] Materia (more content not included)... Normal [facility] Urology Office/Clinic Noteon 02-29-2024 Urology Office/Clinic [...] bladder, unspecified) CT AP w con 01/17/24 [facility] - Irregular 4.8 cam mass along [...] to move forward with radical cystectomy at [facility]. -Will refer to Dr. Ware at [facility] for robotic radical cystectomy. -Start Zofran 4mg q6hrs prn for nausea/vomiting 2. UTI (urinary tract infection) (N39.0: Urinary tract infection, site not specified) Recently went to [facility], after TURBT, due to UTI, bladder pain radiating to back. Took oxybutynin but pain didn't improve so presented to ER. Currently taking cipro, UCx pseudomonas is sensitive to it. 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 Azo helps slightly. Symptoms improving CT AP 01/30/24 at [facility]- bladder wall thickening/ possible cystitis (on review, likely from malignancy/recent TURBT, no evidence of perforation or hydro). UA today shows small blood, + nitrates, and large leuks. Burning starting to recur. Recommended cranberry supplement for UTI prevention. Discussed starting estrogen cream to help with vaginal atrophy and UTI prevention. -Urine sent for cul (more content not included)... Normal [facility] Comment on above: Result Comment: Elec tronically Signed By: Lin Dalton MD\.br\Date and Time Signed: 02/29/24 10:06 EDT\.br\Electronically Co-Signed By: Myrna Goodrich\.br\Date and Time Co-Signed: 02/29/24 09:46 EDT [place] 02-04-2024 Screens [id number]#[address] [facility] Pathology Noteon 02-01-2024 Pathology Note [id number]#[address] [facility] Patient Educationon 02-01-20 24 Patient Education Oncology [...] Follow these instructions at home: ? Take aeeg-dca-jsxxmdb and prescription medicines only as told by [...] important. Where to find more information ? [place] [employer] (ACS): cancer.org ? National Cancer [place] (NCI): cancer.gov Contact a health care provider [...] you have wi (more content not included)... [facility] Provider Letteron 02-01-2024 Provider Letter February 01, 2024 [address] SILVA [address] [place] [address] : 1955 To Whom It May Concern, Please excuse Jahaira Kaylah from patient from work due today 02/01/2024 due to accompanying her mother to and from her appointment. If you have any questions feel free to reach out at the number listed below. Sincerely, [facility] [address] [place] [address] [facility] Urology Office/Clinic Noteon 02-01-2024 Urology Office/Clinic Note Chief Complaint Pt is here for PO TURBT HPI Staff F/u to review path report from TURBT done 01/23/24. Last seen in office 01/17/24. Dx: bladder mass, gross hematuria, former smoker. CT AP w con and CXR done 01/17/24 at [facility]. S/p cysto done 01/21/24. Dysuria: mild [...] chemotherapy. We discussed that there are no vrrc-qw-wcxm trials comparing cystectomy with bladder preservation therapy. [...] infection, site not specified) Recently went to [facility], after TURBT, due to UTI, bladder pain radiating to back. Took oxybutynin but pain didn't improve so presented to ER. Currently mirta (more content not included)... [facility] Comment on above: Result Comment: Elec tronically Signed By: Sha SINGLETARY, Lin Caldera\.br\Date and Time Signed: 02/01/24 16:30 EDT\.br\Electronically Co-Signed By: Sana Patricia\.br\Date and Time Co-Signed: 02/01/24 14:04 EDT Lab Reportson 01-24-2024 Lab Reports [id number] #1.00TIFF [facility] Operative Reporton Operative Report [id number]#1. 00TIFF [facility] RAD - MISCon 01-24-2024 RAD - MISC [id number]#1 .00TIFF [facility] RAD - MISC [id number]#1 .00TIFF [facility] RAD - MISC [id number]#1. 00TIFF [facility] Clay 01-23-2024 L Specimen: [id number] Received: 01/24/24 Status: DAKOTAH Chase Num: [id number] Spec Type: Surgical Subm Dr: Lin Dalton MD Tissues: A Urinary Bladder - TUR (BLADDER TUMORS) Procedures: HE/10, Gross/Micro L5 Age/ Patient Sex Location Account Attending Physician Svetlana Silav 68/F [place] [id number] Lin Dalton MD SPEC NUM: [id number] RECD: 01/24/24 STATUS: DAKOTAH CHASE NUM: [id number] JULIA: 01/23/[address]: Lin Dalton MD ENTERED: 01/24/[address] [facility] DR: Kevin Doe SPEC TYPE: Surgical DEPT: [...] representatively submitted in cassettes A1?A5. CPT Codes 14114 -------- -------- Specimen: [id number] Received: 01/24/24 Status: DAKOTAH Chase Num: [id number] Spec Type: Surgical Subm Dr: Lin Dalton MD Tissues: A Urinary Bladder - TUR (BLADDER TUMORS) Procedures: , Gross/Micro L5 -------- Patient: Svetlana Silva [id number] (Continued) -------- Signed (signature on file) Pasquale Brumfield MD 01/30/24 1417 Normal [facility] Consent for Procedure/Surger yon 01-22-2024 Consent for Procedure/Surgery [id number]#1. 00TIFF Normal [facility] Urine Cytology ( Labs)on 01-22-2024 Microscopic exam Cytology (U) [Interp] Diagnosis Info Invalid Interpretation Code [facility] Comment on above: Result Comment: A:Ur ine,Urine:Voided Interpretation - MicroScopic Description - Adequacy - Gross Description Site ID:A color Yellow fixative Alcohol Specimen designated Urine received in alcohol preservative and labeled with the patient?s name, consists of 90ml slightly cloudy yellow fluid. Electronically signed by : on: 01/22/2024 15:40:59 Performed By: #### 1 [id number] #### [address] [address] Consent for Procedure/Surger yon 01-21-2024 Consent for Procedure/Surgery [id number]#[address] [facility] Consent for Procedure/Surgery [id number]#1. 00TIFF Normal [facility] Consent for Treatmenton 01-11 Consent for Treatment [id number]#[address] [facility] Inpatient Patient Summaryon 01-21-2024 Inpatient Patient Summary [place] [id number] Clinical Summary Person Information Name: SVETLANA SILVA Age: 68 Years : 1955 Sex: Female PCP: NONE, XXXX Marital Status: Race: White Ethnicity: Non- or Language: Telugu Visit Id: Visit Reason: BLADDER MASS Speciality: Acuity: Enc Type: Outpatient Med Service: Surgery Arrival: 01/21/2024 08:15:39 Discharge: Dispo Type: Address: [address] [place] [address] [address] [facility] [id number] Provider Notes: Diagnosis: Bladder mass; Gross hematuria [...] Information: EU - Cystoscopy Discharge Instructions (CUSTOM) [facility] IntraOperative Documentson 0 01-21-2024 IntraOperative Documents [id number]#1 .00TIFF [facility] Main OR Intraoperative Recor don 01-21-2024 Main OR Intraoperative Record IntraOp Document Type FTURO Summary Primary Physician: Lin Dalton MD Finalized Date/Time: 01/21/24 08:55:32 Pt. Name: ARIS SILVACELINE Ceron/Sex: 1955 Female Med Rec #: [id number] Physician: Lin Dalton MD Financial #: [id number] Pt. Type: O Room/Bed: / Admit/Disch: 01/21/24 [...] Laura C Role Performed Surgeon - Primary Pear Picker - Primary Scrub - Primary Time In [...] Prep Agents Betadine Solution Skin. Condition Intact, Colo, Warm, and Description n/a Dry Additional None [...] 01/21/24 08:55 Jessica Goodrich 01/21/24 08:[address] [facility] Main OR Preoperative Recordo n 01-21-2024 Main OR Preoperative Record Holding Area Document Type FTURO Summary Primary Physician: Lin Dalton MD Finalized Date/Time: 01/21/24 08:30:18 Pt. Name: SVETLANA SILVA Key De JesusB./Sex: 1955 Female Med Rec #: [id number] Physician: Lin Dalton MD Financial #: [id number] Pt. Type: O Room/Bed: / Admit/Disch: 01/21/24 [...] SCOTT Fischer RN, Ruthann 01/21/24 08:[address] [facility] Operative Reporton Operative Report Patient: SVETLANA SILVA Age: 68 years Sex: Female : 1955 Associated Diagnoses: None Author: Lin Dalton MD Procedure Operative Information Details: Date/ Time: 01/21/2024 08:52:00. Pre-Op Dx: Gross hematuria (IZL71-LV R31.0, Discharge, Medical), Bladder mass (VHA93-PZ N32.89, Discharge, Medical). Post-Op Dx: Same. Anesthesia [...] mass. Risks/benefits again discussed. CTU 01/17/24 at [facility] - 4.8 x 2.1 cm irregular left bladder wall mass, appears to be continuous with muscle on personal review. No upper tract filling defects, no lymphadenopathy. CXR - no mets. COPD changes (hyperexpansive). Normal [facility] Comment on above: Result Comment: Elec tronically Signed By: Lin Dalton MD\.br\Date and Time Signed: 01/21/24 08:58 EDT Outpatient Surgery Discharge Instructionon 01-21-2024 Outpatient Surgery Discharge Instruction [place] [id number] Patient Discharge Instructions PERSON INFORMATION Name: SVETLANA [...] to serve you. Thank you for choosing [facility] Normal [facility] ED Note-Physicianon 01-18-20 ED Note-Physician [id number]#[address] [facility] RAD - CT Reporton 01-18-2024 RAD - CT Report [id number]#1. 00TIFF Normal [facility] RAD - CT Report [id number]#[address] [facility] RAD - MISCon 01-18-2024 RAD - MISC [id number]#1 .00TIFF Normal [facility] - MIS [id number]#1. 00TIFF Normal [facility] Urology Office/Clinic Noteon 01-18-2024 Urology Office/Clinic Note HPI Staff 68 year old female New Pt. seen in [facility] 01/13/24 due to hematuria associated with [...] new to our office due to recent [facility] ER visit for gross hematuria and suspected bladder mass. Hx of COPD. Not currently on oxygen. States her stats are in the 90s. Pt here with granddaughter today. BBS 26 Hx of partial hysterectomy. 1. Bladder mass (N32.89: Other specified disorders of bladder) Pt presented to [facility] ER 01/13/24 for eval of hematuria [...] UTI. CT AP wo IV con 01/13/24 [facility] - shows asymmetric focal thickening of [...] on any blood thinners. No hx of NV or stroke. Pt states her doctor thinks she may of had a stroke when she had COVID, but never confirmed. -Present to the ER if pt is unable to void due to clots -Increase fluids to prevent clots -Urine sent for cytology today -Will schedule CT AP w/ IV and delayed phase to complete urogram @ [facility] STAT prior to TURBT for staging [...] for indwell (more content not included)... Normal [facility] Comment on above: Result Comment: Elec [...] including vitamins, herbs, eye drops, creams, and mqrq-rsx-hhilqzd medicines. ? Any problems you or family members have had with anesthetic medicines. ? Any bleeding problems you have. ? Any surgeries you have had. ? Any medical conditions you have, including recent urinary tract infections. ? Whether you are or may be . What are the risks? General (more content not included)... Normal [facility] Formson 01-17-2024 Forms [id number]#1. 00TIFF [facility] Patient Educationon 01-17-20 24 Patient Education Oncology [...] including vitamins, herbs, eye drops, creams, and cwcl-uaa-eotcvwg medicines. ? Any problems you or family [...] tells you to take them. ? Taking vvaz-hxl-cxqhbkt medicines, vitamins, herbs, and supplements. General instructions [...] as y (more content not included)... Normal [facility] [place] 01-17-2024 Screens [id number]#[address] [facility] Urine Cytology ([facility]4 Labs)on 0 01-17-2024 Method of Extraction Voided Normal [facility] Comment on above: Performed By: #### 1 [id number] #### [facility] [address] Number of Jars [address] [facility] Comment on above: Performed By: #### 1 [id number] #### [facility] [address] [place] [address] [facility] Comment on above: Performed By: #### 1 [id number] #### [facility] [address] [facility] [place] [address] Type of Service Technical Only Normal [facility] Comment on above: Performed By: #### 1 [id number] #### 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) Centrilobular emphysema (492.8) (J43.2) Former smoker (V15.82) (Z87.891) HTN (hypertension) (401.9) (I10) Mixed hyperlipidemia (272.2) (E78.2) Overweight with body mass index (BMI) of 26 to 26.9 in adult (278.02,V85.22) (E66.3,Z68.26) Orders Overweight with body mass index (BMI) of 26 to 26.9 in adult Healthy Weight Tips; Status:Complete - Retrospective Authorization; Done: 41Wop6953 Some eating tips that can help you lose weight.; Status:Complete - Retrospective Authorization; Done: 79Cfa5900 SocHx: Former smoker Tobacco Use Screening; Status:Complete; Done: 70Jfe2736 Patient Instructions Please bring all medicines, vitamins, [...] negative for complaint. Vitals Vital Signs Recorded: 84Zor1517 10:39AM Heart Rate76, L Radial Aigfvkic540, LUE, Sitting Wplcktdbe37, LUE, Sitting Height4 ft 11 in Dosgwu380 lb BMI Dhrzzwpjbd00.86 kg/m2 BSA Calculated1.55 Tobacco Useb) No PHQ-2 [...] Pulmonary: n (more content not included)... Normal [facility] Tobacco Screening.on 023 Adult depression screening assessment No [facility] 250 DO Work Phone: Fall risk assessment a) No falls within the last year [facility] DO Work Phone: Tobacco use status CP b) No [facility] DO Work Phone: Echocardiogramon 03-09-2023 Echocardiography [facility] [address] [place] [address], [address] [place] [address] TRANSTHORACIC ECHOCARDIOGRAM REPORT Patient Name: SVETLANA SILVA Reading Physician: [id number] Benny Kang MD Study Date: 03/09/2023 Referring Physician: BENNY KANG MRN/PID: [id number] PCP: Accession/Order#: [id number] Department Location: [facility] Xenia Date of : 1955 Fellow: Gender: F Nurse: Admit Date: Translation Director: Fatuma Vidales RDCS, RVT Height: 149.86 cm CC Report to: Weight: 59.88 kg Study Type: Echocardiogram BSA: 1.55 m2 Blood Pressure: 140 /78 mmHg Diagnosis/ICD: R06.00-Dyspnea, unspecified Indication: HTN, Hyperlipidemia, Former Smoker, Centrilobular Emphysema, Alpha-1 Antitrysin Deficiency, Overweight Procedure/CPT: Echo Complete w Full Doppler-80094 Study Detail: The following Echo studies were [...] 0.8 m/s (0.6-0.9m/s) PV Max P.7 mmHg [id number] Benny Kang MD Electronically signed on 03/10/2023 at 4:28:00 PM Final Normal [facility] CARDIAC STRESS/REST INJE CTIONon 03-09-2023 [facility] CARDIAC STRESS/REST INJECTION Patient Name: SVETLANA SILVA STUDY: MYOCARDIAL PERFUSION STRESS TEST WITH LEXISCAN Performing facility: [facility], [address] [place] [address], [address], [place], [place] [address] Provider: Benny Kang MD PCP: Dr. David Allan Supervising provider: Polina Palomino MD, [facility] INDICATION: Dyspnea HISTORY: Gender: F; Age: 67 y/o ; Height: 0 cm; Weight: 0 kg. High Cholesterol; HTN; SOB; COPD; Emphysema Quit smoking 3.5 years ago. COMPARISON: No comparison. 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 : dyspnea Overweight with body mass index (BMI) of 26 to 26.9 in adult Healthy Weight Tips; Status:Complete; Done: 83Fvs1628 Some eating tips that can help you lose weight.; Status:Complete; Done: 18Liy0526 SocHx: Former smoker Tobacco Use Screening; Status:Complete; Done: 53Dmq9058 Patient Instructions Please bring all medicines, vitamins, [...] no sei (more content not included)... Normal [facility] Tobacco Screening.on 023 Adult depression screening assessment No [facility] 250 DO Work Phone: Fall risk assessment b) One or more fall s in the last year [facility] [employer] y 250 DO Work Phone: Tobacco use status CPHS b) No [facility] [employer] 250 DO Work Phone: XR CHEST 2 [...] by: FRANCIS ANDERSON Date: 2022-10-17 15:20 Normal [facility] CT LUNG CANCER SCREENINGon 0 08-17-2022 [...] THERESA LUCIA Date: 2022-08-17 07:32 Normal [facility] PROF 14(COMP METB)on 022 Albumin [Mass/Vol] 3.9 g/dL Normal 3.4-5.0 [facility] Comment on above: Performed By: #### C MP #### [facility] [address] [place] [address] Dr. Shelby Rodriguez Albumin/Globulin [Mass ratio] 1.2 {ratio} Normal [facility] Comment on above: Performed By: #### C MP #### [facility] [address] [place] [address] Dr. Shelby Rodriguez ALP [Catalytic activity/Vol] 60 U/L Normal 46-116 [facility] Comment on above: Performed By: #### C MP #### [facility] [address] [place] [address] [address] Shelby Rodriguez ALT [Catalytic activity/Vol] 35 U/L Normal 14-59 [facility] Comment on above: Performed By: #### C MP #### [facility] [address] [place] [address] Dr. Shelby Rodriguez Anion gap [Moles/Vol] 10.3 mmol/L Normal [facility] Comment on above: Performed By: #### C MP #### [facility] [address] [place] [address] [address] Shelby Rodriguez AST [Catalytic activity/Vol] 22 U/L Normal 15-37 [facility] Comment on above: Performed By: #### C MP #### [facility] [address] [place] [address] Dr. Shelby Rodriguez Bilirubin [Mass/Vol] 0.5 mg/dL Normal 0.2-1.0 [facility] Comment on above: Performed By: #### C MP #### [facility] [address] [place] [address] Dr. Shelby Rodriguez Calcium [Mass/Vol] 9.4 mg/dL Normal 8.5-10.1 [facility] Comment on above: Performed By: #### C MP #### [facility] [address] [place] [address] Dr. Shelby Rodriguez Chloride [Moles/Vol] 105 mmol/L Normal 98-107 [facility] Comment on above: Performed By: #### C MP #### [facility] [address] [place] [address] Dr. Shelby Rodriguez CO2 [Moles/Vol] 30.5 mmol/L Normal 21.0-32.0 [facility] Comment on above: Performed By: #### C MP #### [facility] [address] [place] [address] Dr. Shelby Rodriguez Creatinine [Mass/Vol] 0.87 mg/dL Normal 0.55-1.02 [facility] Comment on above: Performed By: #### C MP #### [facility] [address] [place] [address] Dr. Shelby Rodriguez EGFR-AF GUYANESE >60 Normal >=60 [facility] Comment on above: Performed By: #### C MP #### [facility] [address] [place] [address] Dr. Shelby Rodriguez EGFR-NON AF GUYANESE >60 Normal >=60 [facility] Comment on above: Performed By: #### C MP #### [facility] [address] [place] [address] Dr. Shelby Rodriguez Globulin (S) [Mass/Vol] 3.2 g/dL Normal [facility] Comment on above: Performed By: #### C MP #### [facility] [address] [place] [address] Dr. Shelby Rodriguez Glucose [Mass/Vol] 122 mg/dL Critically high 74-106 [facility] Comment on above: Performed By: #### C MP #### [facility] [address] [address] [address] Shelby Rodriguez Potassium [Moles/Vol] 4.8 mmol/L Normal 3.5-5.1 [facility] Comment on above: Performed By: #### C MP #### [facility] [address] [address] [address] Shelby Rodriguez Protein [Mass/Vol] 7.1 g/dL Normal 6.4-8.2 [facility] Comment on above: Performed By: #### C MP #### [facility] [address] [place] [address] Dr. Shelby Rodriguez Sodium [Moles/Vol] 141 mmol/L Normal 136-145 [facility] Comment on above: Performed By: #### C MP #### [facility] [address] [place] [address] Dr. Shelby Rodriguez Urea nitrogen [Mass/Vol] 14.0 mg/dL Normal 7.0-18.0 [facility] Comment on above: Performed By: #### C MP #### [facility] [address] [place] [address] Dr. Shelby Rodriguez Urea nitrogen/Creatinine [Mass ratio] 16.1 mg/mg Normal [facility] Comment on above: Performed By: #### C MP #### [facility] [id number] Shelby Rodriguez Vital Signs Date Time Vital Sign Value Performing Clinician Facility 02-29-2024 09:05-0400 Blood Pressure Location Lin Sha [facility] 02-29-2024 09:05-0400 Diastolic blood pressure 86 mm[Hg] Lin Lue [facility] 02-29-2024 09:05-0400 Heart rate 64 /min Lin Lue [facility] 02-29-2024 09:05-0400 Respiratory rate 16 /min Lin Lue [facility] 02-29-2024 09:05-0400 Systolic blood pressure 142 mm[Hg] Lin Lue [facility] 02-01-2024 13:20-0400 Body temperature 98.6 [degF] Lin Lue [facility] 02-01-2024 13:20-0400 Diastolic blood pressure 61 mm[Hg] Lin Lue [facility] 02-01-2024 13:20-0400 Heart rate 72 /min Lin Lue [facility] 02-01-2024 13:20-0400 Respiratory rate 16 /min Lin Lue [facility] 02-01-2024 13:20-0400 Systolic blood pressure 125 mm[Hg] Lin Lue [facility] 11-28-2023 15:41-0400 Body height 149.9 cm Benny Kang MD Work Phone: [facility] 11-28-2023 15:41-0400 Body mass index (BMI) [Ratio] 25.45 kg/m2 Benny Kang MD Work Phone: [facility] 04-17-2024 15:41-0400 Body weight 57.15 kg Benny Kang MD Work Phone: [facility] 11-28-2023 15:41-0400 Diastolic blood pressure 80 mm[Hg] Benny Kang MD Work Phone: [facility] 11-28-2023 15:41-0400 Heart rate 66 /min Benny Kang MD Work Phone: [facility] 11-28-2023 15:41-0400 Systolic blood pressure 130 mm[Hg] Benny Kang MD Work Phone: [facility] 09-24-2023 18:05-0500 Body height 149.9 cm Shaikh Jerrell SINGLETARY Work Phone: [facility] 09-24-2023 18:05-0500 Body mass index (BMI) [Ratio] 24.64 kg/m2 Shaikh Jerrell SINGLETARY Work Phone: [facility] 09-24-2023 18:05-0500 Body temperature 97 [degF] Shaikh Jerrell SINGLETARY Work Phone: [facility] 09-24-2023 18:05-0500 Body weight 55.34 kg Shaikh Jerrell SINGLETARY Work Phone: [facility] 09-24-2023 18:05-0500 Diastolic blood pressure 80 mm[Hg] Shaikh Jerrell SINGLETARY Work Phone: [facility] 09-24-2023 18:05-0500 Heart rate 90 /min Shaikh Jerrell SINGLETARY Work Phone: [facility] 09-24-2023 18:05-0500 SaO2% (BldA) [Mass fraction] 97 % Shaikh Jerrell SINGLETARY Work Phone: [facility] 09-24-2023 18:05-0500 Systolic blood pressure 132 mm[Hg] Shaikh Jerrell SINGLETARY Work Phone: [facility] 03-30-2023 10:39-0400 Body height 149.86 cm Khan Faermias Work Phone: [facility] DO Work Phone: 03-30-2023 10:39-0400 Body mass index (BMI) [Ratio] 26.86 kg/m2 Shaikh Jerrell Work Phone: [facility] DO Work Phone: 03-30-2023 10:39-0400 Body surface area Derived from formula 1.55 m2 Shaikh Jerrell Work Phone: [facility] DO Work Phone: 03-30-2023 10:39-0400 Body weight 60.33 kg Shaikh Jerrell Work Phone: [facility] DO Work Phone: 03-30-2023 10:39-0400 Diastolic blood pressure 70 mm[Hg] Shaikh Jerrell Work Phone: [facility] DO Work Phone: 03-30-2023 10:39-0400 Heart rate 76 /min Shaikh Jerrell Work Phone: [facility] DO Work Phone: 03-30-2023 10:39-0400 Systolic blood pressure 122 mm[Hg] Khan Jerrell Work Phone: [facility] DO Work Phone: 01-26-2023 11:30-0400 Diastolic blood pressure 92 mm[Hg] Khan Mary Bethwwad Work Phone: [facility] DO Work Phone: 01-26-2023 11:30-0400 Systolic blood pressure 164 mm[Hg] Shaikh Mary Bethwwad Work Phone: [facility] DO Work Phone: 01-26-2023 11:29-0400 Body height 149.86 cm Shaikh Chikawad Work Phone: [facility] DO Work Phone: 01-26-2023 11:29-0400 Body mass index (BMI) [Ratio] 26.66 kg/m2 Shaikh Chikawad Work Phone: [facility] DO Work Phone: 01-26-2023 11:29-0400 Body surface area Derived from formula 1.55 m2 Shaikh Chikawad Work Phone: [facility] DO Work Phone: 01-26-2023 11:29-0400 Body weight 59.88 kg Shaikh Chikawad Work Phone: [facility] DO Work Phone: 01-26-2023 11:29-0400 Diastolic blood pressure 100 mm[Hg] Shaikh Chikawad Work Phone: [facility] DO Work Phone: 01-26-2023 11:29-0400 Heart rate 91 /min Shaikh Mary Bethwwad Work Phone: [facility] DO Work Phone: 01-26-2023 11:29-0400 Systolic blood pressure 184 mm[Hg] Khan Fawwad Work Phone: [facility] DO Work Phone: Encounters Encounter Date Encounter Type Care Provider Facility Start: 03-19-2024 End: 03-19-2024 ambulatory ALEJANDRO DEMPSEYMARTINNAVNEET Facility:[facility] Start: 02-29-2024 End: 02-29-2024 Lab Drop off Lin Dalton [facility] Start: 02-29-2024 End: 02-29-2024 ambulatory Lin Dalton Facility[facility] Start: 02-29-2024 End: 02-29-2024 Patient encounter procedure Lin Dalton [facility] Start: 02-01-2024 End: 02-01-2024 ambulatory Lin Dalton Facility:[facility] Start: 02-01-2024 End: 02-01-2024 Patient encounter procedure Lin Dalton [facility] Start: 01-31-2024 End: 01-31-2024 ambulatory JERRELL Not Available Start: 01-23-2024 End: 01-23-2024 ambulatory Lin Dalton [facility] Work Phone: Start: 01-23-2024 End: 01-23-2024 Departed Referred MD Lin Dalton Work Phone: [facility] Start: 01-23-2024 End: 01-23-2024 ambulatory Lin Dalton Facility:CD:[id number] Start: 01-21-2024 End: 01-21-2024 ambulatory Lin Dalton Facility:[facility] Start: 01-21-2024 End: 01-21-2024 Patient encounter procedure Lin Dalton [facility] Start: 01-17-2024 End: 01-17-2024 Lab Drop off Lin Dalton [facility] Start: 01-17-2024 End: 01-17-2024 ambulatory Lin Dalton Facility:[facility] Start: 01-17-2024 End: 01-17-2024 Patient encounter procedure Lin Dalton [facility] Start: 01-14-2024 ambulatory Lin Dalton Facility:[facility] Start: 12-31-2023 End: 12-31-2023 ambulatory SHAIKH JERRELL Not Available Start: 11-28-2023 End: 11-28-2023 ambulatory [facility] Start: 11-28-2023 End: 11-28-2023 Office outpatient visit 15 minutes Benny Kang MD Work Phone: [facility] Comment on above: Shortness of breath (Primary Dx); Essential hypertension; Mixed hyperlipidemia; Erdfp-4-sgdllfeyovn deficiency (Multi); Centrilobular emphysema (Multi); Former smoker; BMI 25.0-25.9,adult Start: 11-14-2023 End: 11-14-2023 ambulatory SHAIKH JERRELL Not Available Start: 09-24-2023 End: 09-24-2023 Office outpatient visit 15 minutes Shaikh Jerrell SINGLETARY Work Phone: [facility] Comment on above: Current moderate epi sode of major depressive disorder without prior episode (HCC) (CMS/HCC) (Primary Dx) Start: 09-24-2023 End: 09-24-2023 Orders Only Shaikh Jerrell SINGLETARY Work Phone: [facility] Comment on above: Primary hypertension (CMS/HCC) (Primary Dx) Start: 08-23-2023 End: 08-23-2023 ambulatory SHAIKH JERRELL Not Available Start: 08-02-2023 Patient encounter procedure Shaikh Jerrell SINGLETARY Work Phone: [facility] Start: 08-02-2023 End: 08-02-2023 ambulatory SHAIKH JERRELL Not Available Start: 03-30-2023 Office outpatient vi sit 15 minutes Shaikh Jerrell Work Phone: [facility] DO Work Phone: Start: 03-30-[address] Benny Kang Facility: Start: 03-11-2023 Chart Update Shaikh Jerrell Work Phone: [facility] DO Work Phone: Start: 03-10-2023 Chart Update Shaikh Jerrell Work Phone: [facility] DO Work Phone: Start: 03-09-[address] Benny Kang Facility:[id number] Start: 01-26-2023 Office consultation new/estab patient 60 min Shaikh Jerrell Work Phone: [facility] DO Work Phone: Start: 01-26-[address] Benny Kang Facility: Start: 01-02-[address] [facility] . Facility :H1 Start: 10-17-2022 End: 10-18-[address] [facility] . Facility:H1 Start: 08-16-2022 End: 08-17-[address] [facility] . Facility:H1 Start: 04-20-2022 End: 04-21-2022 ambulatory [...] Screening for malign ant neoplasm of colon [facility] Start: 09-02-2024 End: 09-02-2024 Patient encounter procedure 09/02/2024 1:30 PM EST Office Visit [facility] [address] [facility] [address] [place] [address] Benny Kang MD [address] [facility] [address] [place] [address] [facility] Start: 08-02-2024 Medicare Annual Well ness (AWV) Medicare Annual Wellness (AWV) [facility] Start: 03-04-2024 Screening for malign ant neoplasm of breast Mammogram [facility] Start: 11-22-2023 End: 11-22-2023 Patient encounter procedure 11/22/2023 11:30 AM EDT Office Visit [facility] [address] [place] [id number] Shaikh Allan MD [address] [place] [id number] [facility] Start: 10-05-2023 FUV, Provider: Benny Kang, Status: Pen, Time: 9:20 AM FUV, Provider: Benny Kang, Status: Pen, [facility]: [facility]:20 [facility]: Start: 09-24-2023 End: 09-24-2023 Patient encounter procedure 09/24/2023 5:45 PM EST Office Visit [facility] [address] [place] [phone] Shaikh Allan MD [address] [place] [id number] [facility] Start: 04-13-2023 COVID-19 Vaccine ( season) COVID-19 Vaccine ( season) [facility] Start: 03-30-2023 FUV, Provider: Benny Kang, Status: Pen, Time: 10:30 AM FUV, Provider: Benny Kang, Status: Pen, Time: 10:30 AM [facility] Work [facility]: Start: 03-09-2023 ECHO, Provider: JOHN PAUL CHANEL [facility] ULTRASOUND 01,[id number], Status: Pen, Time: 10:45 AM ECHO, Provider: XENIA [facility] ULTRASOUND 01,[id number], Status: Pen, Time: 10:45 AM [facility] Work [facility]: Start: 03-09-2023 STRESS NUC, Provider : XENIA [facility] NUCLEAR 01,[id number], Status: Pen, Time: 8:30 AM STRESS NUC, Provider: XENIA [facility] NUCLEAR 01,[id number], Status: Pen, Time: 8:30 AM [facility] Work [facility]: Start: 04-26-2021 DTaP/Tdap/Td Vaccine s (1 - Tdap) DTaP/Tdap/Td Vaccines (1 - Tdap) [facility] Start: 2013 Hepatitis B Vaccines (1 of 3 - Risk 3-dose series) Hepatitis B Vaccines (1 of 3 - Risk 3-dose series) [facility] Start: 1993 Screening for malign ant neoplasm of breast Mammogram [facility] Start: 1972 Hepatitis A Vaccines (1 of 2 - Risk 2-dose series) Hepatitis A Vaccines (1 of 2 - Risk 2-dose series) [facility] Start: 1971 Diabetes mellitus screening Diabetes Screening [facility] Start: 1971 Hepatitis C screening Hepatitis C Sc reening [facility] Start: 1953 Lipid panel Lipid Panel [facility] Start: 1953 Medicare Annual Well ness Visit Medicare Annual Wellness Visit (AWV) [facility] Start: 1953 Screening for malign ant neoplasm of colon [facility] Start: 1953 Screening for osteoporosis Bone Density Scan [facility] Immunizations Immunization Date Immunization Notes Care Provider Fa cility 05-26-2023 ABRYSVO - Respirator y syncytial virus (RSV), vaccine, bivalent, protein subunit RSV prefusion F, diluent reconstituted, 0.5 mL, PF Shaikh Jerrell SINGLETARY Work Phone: [facility] 05-24-2023 influenza virus vaccine, unspecified formulation Lin Dalton [facility] 05-24-2023 Influenza, High-dose Seasonal, Quadrivalent, Preservative Free Shaikh Jerrell SINGLETARY Work Phone: [facility] 05-24-2023 Pneumococcal Conjuga te PCV 20 Shaikh Jerrell SINGLETARY Work Phone: [facility] 05-03-2023 pneumococcal conjuga te 20-valent (Prevnar 20) 0.5 ML vaccine Shaikh Jerrell SINGLETARY Work Phone: [facility] 10-27-2022 zoster vaccine recombinant Shaikh Jerrell Work Phone: [facility] 250 DO Work Phone: 08-27-2022 zoster vaccine recombinant Shaikh Jerrell Work Phone: [address] [address] DO Work Phone: 06-03-2022 Fluzone High-Dose Quadrivalent 0.7 ML Intramuscular Suspension Prefilled Syringe Shaikh Jerrell Work Phone: [address] [address] DO Work Phone: 06-03-2022 influenza virus vaccine, unspecified formulation Lin Dalton [facility] 06-03-2022 influenza, seasonal, injectable Benny Kang MD Work Phone: [facility] Work Phone: 08-03-2021 Pfizer-[facility] COVID-19 Vacc 30 MCG/0.3ML Intramuscular Suspension Shaikh Jerrell Work Phone: [facility] 06-02-2021 Fluzone High-Dose Quadrivalent 0.7 ML Intramuscular Suspension Prefilled Syringe Shaikh Jerrell Work Phone: [address] [address] DO Work Phone: 06-02-2021 influenza virus vaccine, unspecified formulation Lin Sha [facility] 04-25-2021 diphtheria, tetanus toxoids and pertussis vaccine Shaikh Chikamarie Work Phone: [facility] 04-25-2021 tetanus and diphther ia toxoids, adsorbed, preservative free, for adult use (2 Lf of tetanus toxoid and 2 Lf of diphtheria toxoid) Benny Kang MD Work Phone: [facility] Work Phone: 12-23-2020 Pfizer-BioNTech COVID-19 Vacc 30 MCG/0.3ML Intramuscular Suspension Khan Fawwad Work Phone: [facility] 12-02-2020 Pfizer-BioNTech COVID-19 Vacc 30 MCG/0.3ML Intramuscular Suspension Khan Fawwad Work Phone: [facility] 07-21-2014 influenza virus vaccine, unspecified formulation Lin Lue [facility] 07-21-2014 influenza, seasonal, injectable Khan Fawwad Work Phone: [facility] 250 DO Work Phone: 06-21-2013 influenza virus vaccine, unspecified formulation Lin Lue [facility] 06-21-2013 influenza, seasonal, injectable Khan Fawwad Work Phone: [facility] 250 DO Work Phone: 08-31-2012 influenza virus vaccine, unspecified formulation Lin Lue [facility] 08-31-2012 influenza, seasonal, injectable, preservative free Khan Fawwad Work Phone: [facility] 250 DO Work Phone: Payers Date Payer Category Payer Self-pay [id number] 2018 Medicare [id number] 1959 Medicare [id number] 1959 Private Health Insurance [facility] 2006 1953 Unknown [id number] 2.16.84 0.1.670435.3.579.2.593 1953 Unknown [id number] 2.16.84 0.1.106599.3.579.2.593 1953 Unknown [id number] 2.16.84 0.1.918952.3.579.2.593 1953 Unknown [id number] 2.16.84 0.1.001327.3.579.2.593 1953 Unknown [id number] 2.16. 840.1.555755.3.579.2.356 1953 Unknown [id number] 2.16. 840.1.739500.3.579.2.356 1953 Unknown [id number] 2.16. 840.1.069789.3.579.2.356 1953 Unknown [id number] 2.16.8 40.1.547438.3.579.2.1068 1953 Unknown [id number] 2.16.8 40.1.116374.3.579.2.1244 1953 Unknown [id number] 2.16.84 0.1.140329.3.579.2.1259 1953 Unknown [id number] 2.16.84 0.1.440985.3.579.2.1259 1953 Unknown [id number] 2.16.84 0.1.125046.3.579.2.1259 1953 Unknown [id number] 2.16.84 0.1.856216.3.579.2.1259 1953 Unknown [id number] 2.16.84 0.1.384026.3.579.2.1259 1953 Unknown [id number] 2.16.840 .1.625570.3.579.2.1259 1953 Unknown [id number] 2.16.8 40.1.874933.3.579.2.727 1953 Unknown [id number] 2.16.8 40.1.529399.3.579.2.727 1953 Unknown [id number] 2.16.8 40.1.495303.3.579.2.727 1953 Unknown [id number] 2.16.8 40.1.441764.3.579.2.727 1953 Unknown [id number] 2.16.8 40.1.150704.3.579.2.727 1953 Unknown [id number] 2.16.8 40.1.410808.3.579.2.727 1953 Unknown [id number] 2.16.8 40.1.929342.3.579.2.727 Medicaid [id number] Private Health Insurance [facility] [id number] Unknown Unknown [id number] 2.16.8 40.1.964107.3.579.2.531 Social History Date Type Detail Facility Start: 08-29-2023 End: 11-28-2023 No caffeine use No caffeine use [address] [place] [address] DO Work Phone: Start: 08-29-2023 End: 02-29-2024 Tobacco smoking status [facility] Ex-smoker [facility] Start: 10-25-2017 End: 06-28-2020 History of tobacco use Current smoker [facility] End: 06-28-2020 History of tobacco use Cigarette Smoker [facility] Start: 08-29-2023 End: 11-28-2023 Tobacco use and exposure Smokeless tobacco non-user [facility] Start: 08-29-2023 End: 11-28-2023 Alcohol intake Lifetime non-drinker (finding) [facility] Start: 08-29-2023 End: 11-28-2023 Tobacco use panel [facility] Start: 07-18-2023 Alcohol Comment caffeine: 1-2 cups per day [facility] Start: 1955 Sex Assigned At Not on file [facility] Start: 11-18-2023 End: 11-28-2023 Exposure to SARS-CoV-2 (event) Not sure [facility] Start: 1955 Sex Assigned At Female [facility] Tobacco smoking status Never [facility] NEGATED: Highlighted rowStart: NINF History of tobacco use Passive smoker [facility] Medical Equipment Procedure Code Equipment Code Equipment Original Text Equipment Identifier Dates Phacoemulsification of cataract with intraocular lens implantation LENS ACRYSOF IOL [id number] FDA Start: 09-27-2017 Phacoemulsification of cataract with intraocular lens implantation LENS ACRYSOF IOL [id number] FDA Start: 10-25-2017 Functional Status Date Assessment Result Facility 02-29-2024 Functional Status N/A [facility] 02-01-2024 Functional Status N/A [facility] Clinical Notes 01-26-2023 to 03-19-2024 Benny Kang MD - 11/28/2023 2:50 PM EDTPatient Germain [place] MD - 09/24/2023 6:31 PM Alberto Allan MD - 09/24/2023 5:45 PM EST Note Date & Type Note Facility 03-19-2024 Note HNO ID: [id number] Author: ALEJNADRO WARE MD Service: ? Author Type: Physician Type: Progress Notes Filed: 03/19/2024 13:21 Note Text: [facility] NEW PATIENT HISTORY AND PHYSICAL [...] talked about medical complications, such as cardiac (NV, etc), respiratory (pneumonia, etc), renal (Acute kidney [...] we would ope (more content not included)... [facility] 02-29-2024 Evaluation + Plan note Diagnostic Tests PendingUrine Culture 02/29/24 [facility] 02-29-2024 Hospital Discharg e instructions Patient [...] cells. Follow these instructions at home: Take mvat-lym-kjsjeli and prescription medicines only as told by [...] is important. Where to find more information [place] [employer] (ACS): cancer.org National Cancer [place] (NCI): cancer.gov Contact a health care provider [...] provider. Document Revised: 07/10/2022 Document Reviewed: 07/10/2022 [employer] Patient Education 2022 [employer]. [facility] Up Care 02/01/2024 14:08:57 With:Sha SINGLETARY, KYLE Aguilera, URO Address: When: Unknown [facility] 02-29-2024 Note Patient Education Oncology Bladder Cancer [...] Follow these instructions at home: ? Take cfhc-hao-tmvjopo and prescription medicines only as told by [...] important. Where to find more information ? [place] [employer] (ACS): cancer.org ? National Cancer [place] (NCI): cancer.gov Contact a health care provider [...] discuss any q (more content not included)... [facility] 02-01-2024 Hospital Discharg e instructions Patient Education [...] cells. Follow these instructions at home: Take hzdo-blu-nejakqb and prescription medicines only as told by [...] is important. Where to find more information [place] [employer] (ACS): cancer.org National Cancer [place] (NCI): cancer.gov Contact a health care provider [...] provider. Document Revised: 07/10/2022 Document Reviewed: 07/10/2022 [employer] Patient Education 2022 [employer]. Follow Up Care 01/25/2024 10:58:20 With:Sha SINGLETARY, Lin Caldera URL, URO Address: When: Unknown [facility] 01-21-2024 Hospital Discharg e instructions Patient [...] appointment for TURBT, possible left ureteral stent [facility] 01-21-2024 Note [id number] [facility] 01-21-2024 Note Cystoscopy ? Voiding after the [...] you have a fever over [address] [facility] 01-17-2024 [facility] Discharg e instructions Patient Education 01/17/2024 [...] including vitamins, herbs, eye drops, creams, and yikm-eaw-fuzgukz medicines. Any problems you or family members [...] provider tells you to take them. Taking mryo-otr-vmmoict medicines, vitamins, herbs, and supplements. General instructions [...] provider. Document Revised: 08/04/2022 Document Reviewed: 08/04/2022 [employer] Patient Education 2022 [employer]. 01/17/2024 10:58:38 Cystoscopy Cystoscopy Cystoscopy is a [...] including vitamins, herbs, eye drops, creams, and muog-fnl-svplhoh medicines. Any problems you or family members [...] provider tells you to take them. Taking uawf-zpc-hwoabhi medicines, vitamins, herbs, and supplements. Tests You [...] Follow these instructions at home: Medicines Take witl-ack-gbbbftl and prescription medicines only as told by [...] provider. Document Revised: 04/12/2022 Document Reviewed: 03/11/2021 [employer] Patient Education 2022 [employer]. Follow Up Care 01/14/2024 11:56:48 With:Sha SINGLETARY, KYLE Aguilera, URO Address: When: Unknown [facility] [facility] History of Presen t illness Narrative [...] Up In Cardiology 3. Mixed hyperlipidemia 4. Wcoku-3-xjcxulhskoa deficiency (Multi) 5. Centrilobular emphysema (Multi) 6. Former smoker 7. BMI 25.0-25.9,adult Scribe Attestation By signing my name below, I, Iesha Javed LPN , Scribdarian attest that this documentation has been prepared [...] discussion and plan. documented in this encounter [facility] Work Phone: 11-28-2023 Instructions Iesha Roper LPN [...] instructions on exercise. documented in this encounter [facility] Work Phone: 09-24-2023 History of Presen t [...] major depressive disorder without prior episode (HCC) ([facility]/HCC) - Primary Patient was seen last appointment [...] weeks (around 11/05/2023). documented in this encounter [facility] 01-26-2023 History of Presen t illness [...] function test, lab work and remote echo1.Plan -[facility] 250 DO Work Phone: Chief complaint Narrative - Reported SVETLANA SILVA is being seen for a consultation for shortness of breath. [facility] 250 DO Work Phone: Evaluation + Plan note Future Appointments Appointment Date:01/18/2024 10:30:00 AM Scheduled Provider: Location:[facility] Appointment Type:Urology CALL PAT FT Appointment Date:01/21/2024 08:00:00 AM Scheduled Provider: Location:[facility] Appointment Type:Urology FT [facility] Evaluation + Plan note Future Appointments Appointment Date:01/18/2024 10:30:00 AM Scheduled Provider: Location:[facility] Appointment Type:Urology CALL PAT FT Appointment Date:01/21/2024 08:00:00 AM Scheduled Provider: Location:[facility] Appointment Type:Urology FT Diagnostic Tests PendingUrine Cytology ([facility]) 01/17/24 [facility] Evaluation + Plan note Future Appointments Appointment Date:02/29/2024 09:15:00 AM Scheduled Provider:Lin Dalton MD Location:[facility] Appointment Type:URO Office Visit [facility] Evaluation + Plan note [facility] Evaluation note Diagnosis Primary hypertension (CMS/HCC)- Primary Unspecified essential hypertension [facility] Diagnosis Current moderate episode of major depressive disorder without prior episode (HCC) (CMS/HCC)- Primary [facility] Diagnosis Shortness of breath- Primary Essential hypertension Unspecified essential hypertension Mixed hyperlipidemia Czdcl-5-tgodjgutgpc deficiency (Multi) Sdlxk-7-wnssssjlfsc deficiency Centrilobular emphysema (Multi) Former smoker Personal history of tobacco use, presenting hazards to health BMI 25.0-25.9,adult documented in this encounter [facility] Work Phone: Evaluation noteNo assessment information available [facility] Work Phone: History of Present illness [...] her back in 6 months and follow-up [facility] 250 DO Work Phone: Hospital course Narrative No data available for this section [facility] Hospital Discharge instructions No data available for this section [facility] No data available for this section [facility] Reason for referral (narrative)* Consultation (Routine) - Authorized Specialty Diagnoses / Procedures Referred By Contac t Referred To Contact Cardiology Diagnoses Essential hypertension Procedures Follow Up In Cardiology Benny Kang MD [address] [facility] 2, [address] [address] Benny Kang MD [address], [address] [address] Referral ID Status Reason Start Date Expiration Date V isits Requested Visits Authorized [id number] Authorized 11/28/2023 11/27/2024 1 1 [facility] Work Phone: Summary Purpose Family [...] DATE CREATED AUTHOR AUTHOR'S ORGANIZ ATION 03/31/2023 [facility] DATE CREATED AUTHOR AUTHOR'S ORGANIZ ATION 03/31/2023 [facility] DATE CREATED AUTHOR AUTHOR'S ORGANIZ ATION 04/13/2023 [facility] DATE CREATED AUTHOR AUTHOR'S ORGANIZ ATION 11/30/2023 [facility] DATE CREATED AUTHOR AUTHOR'S ORGANIZ ATION 02/01/2024 [facility] DATE CREATED AUTHOR AUTHOR'S ORGANIZ ATION 02/01/2024 [facility] EPIC DATE CREATED AUTHOR AUTHOR'S ORGANIZ ATION 02/05/2024 [facility] DATE CREATED AUTHOR AUTHOR'S ORGANIZ ATION 03/01/2024 [facility] DATE CREATED AUTHOR AUTHOR'S ORGANIZ ATION 03/04/2024 [facility] DATE CREATED AUTHOR AUTHOR'S ORGANIZ ATION 03/21/2024 [facility] Care Teams (unrecognized sec tion and content) Moto Mix Operator Relationship Specialty Start Date End Date Shaikh Allan MD PCP - General Internal Medicine 06/07/23 Moto Mix Operator Relationship Specialty Start Date End Date Shaikh Allan MD [address] [place] [address] PCP - General Internal Medicine 09/24/23 Moto Mix Operator Relationship Specialty Start Date End Date [...] BE BASED ON THE PRIMARY CLINICAL RECORDS. [facility]. provides no warranty or guarantee of the accuracy or completeness of information in this document.
--- NOTE | 2024-03-28 09:04 | CT_ITS ---
[facility] [place] [id number] Patient Name: ANGELITA ADRIAN MRN: [id number] date: 1955 Sex: F Assigned Patient Location: CT Current Patient Location: Accession/Order Number: [id number] Exam Date: 03/28/2024 09:12 Report Date: 03/31/2024 10:21 At the request of: ALBERTO JIANG Procedure: CT chest wo con EXAMINATION: CT chest wo con HISTORY: Bladder Cancer, Chronic Obstructive Pulmonary Disease COMPARISON: CTA chest 08/14/2023 TECHNIQUE: Axial, Coronal, and Sagittal images were created without the administration of IV contrast material. Dose reduction techniques were achieved by using automated exposure control and/or adjustment of mA and/or kV according to patient size and/or use of iterative reconstruction technique. FINDINGS: LUNGS: Moderate emphysematous changes. No suspicious nodules or infiltrates. PLEURA: No mass, effusion, or pneumothorax. VASCULATURE: No abnormality. ELVIRA: No mass or pathologic adenopathy. MEDIASTINUM: No mass or pathologic adenopathy. CARDIAC: No enlargement, pericardial thickening, or pericardial effusion. Coronary Artery calcifications: AORTA: No aneurysm or dissection. CHEST WALL: No mass or axillary adenopathy BONES: No bone lesion or fracture. LIMITED ABDOMEN: Dilated left renal pelvis and calyces. Limited images of the upper abdomen. OTHER: Negative. CT/CT chest wo con IMPRESSION: 1. Moderate emphysematous changes/COPD. No acute infiltrates or suspicious nodules to suggest metastatic disease. 2. Mild left hydronephrosis incompletely included on today's study. Electronically authenticated by: THERESA LUCIA Date: 03/31/2024 10:21
== END 2024-03-28 08:58 | disposition home or self-care (01) ==
LOC: CT 08:57
PROVIDERS: Visit Provider Urology
DX: C67.9 Malignant neoplasm of bladder, unspecified (principal); J44.9 Chronic obstructive pulmonary disease, unspecified
CPT/HCPCS: 71250

== ENCOUNTER 2024-07-16 15:24 | Inpatient (IN) | payer MEDICARE, SELFPAY ==
[2024-07-16] VITALS (23 sets, daily range): BP systolic 127–144; BP diastolic 83–102; PULSE 106–154; TEMP 36.7–37.2; O2SAT 92–100; BMI 18.2; BMI 18.6
--- NOTE | 2024-07-16 15:42 | XR_ITS ---
[facility] [place] [id number] Patient Name: ANGELITA ADRIAN MRN: [id number] date: 1955 Sex: F Assigned Patient Location: ED.MAIN Current Patient Location: ER Accession/Order Number: [id number] Exam Date: 07/16/2024 15:45 Report Date: 07/16/2024 16:06 At the request of: EVANGELINA JIMÉNEZ Procedure: XR chest 1V PORTABLE CHEST X-RAY. INDICATION: Shortness of breath. COMPARISON: 09/09/2023. TECHNIQUE: Single AP portable chest radiograph. FINDINGS: TUBES AND LINES: None. LUNGS: Hyperexpanded lungs. No focal opacity. PLEURA: Probable trace effusions. HEART AND MEDIASTINUM: Within normal limits for portable technique. OSSEOUS STRUCTURES: No acute abnormality. XR/XR chest 1V IMPRESSION: No focal opacity. Probable trace bilateral effusions. Electronically authenticated by: TIERRA PRICE Date: 07/16/2024 16:06
--- NOTE | 2024-07-16 15:42 | ECG_ITS ---
[facility] Test Date: 2024-07-16 Pat Name: ANGELITA ADRIAN Department: Room: - Gender: Female Weight Inspector: : 1955 Requested By: Mihir Patel Order Number: [id number] Reading MD: ENRIQUE SHAW Measurements Intervals Mcgraws Rate: 144 P: 76 MD: 134 QRS: -86 QRSD: 64 T: 85 QT: 274 QTc: 357 Interpretive Statements 1120 Sinus tachycardia 1470 with occasional supraventricular premature complexes Low voltage across the precordium 7200 Abnormal left axis deviation 9150 abnormal ECG Electronically Signed On 07-16-2024 23:00:36 EST by ENRIQUE SHAW
[2024-07-16 15:53] LABS: Hematocrit 37.3 % (36.0-48.0); Hemoglobin 12.2 g/dL (12.0-16.0); Mean Corpuscular HGB Conc 32.7 g/dL (29.9-35.2); Mean Corpuscular Hemoglobin 31.2 pg (26.7-34.0); Mean Corpuscular Volume 95.4 fL (81.0-99.0); Mean Platelet Volume 9.2 fL (9.5-13.5); Platelet Count 425 10^3/uL (150-450); Red Blood Count 3.91 10^6/uL (4.20-5.40); Red Cell Distribution Width 20.4 % (11.0-15.0); White Blood Count 16.6 10^3/uL (4.0-11.0)
[2024-07-16] MEDS: DEXAMETHASONE SOD PHOS 10 MG/ML VIAL IV (15:53)
[2024-07-16] MEDS: IPRATROPIUM/ALBUTEROL SULFATE 3 ML AMPUL.NEB IH ×2 (16:02→21:59)
[2024-07-16 16:06] LABS: INR 1.02; Prothrombin Time 10.8 sec (9.0-11.6)
[2024-07-16 16:11] LABS: Influenza Virus A Antigen Negative; Influenza Virus B Antigen Negative; Internal Control Within Normal Limits; SARS-CoV-2 Ag NEGATIVE (NEGATIVE)
[2024-07-16 16:17] LABS: Alanine Aminotransferase 31 U/L (14-59); Albumin Globulin Ratio 0.9; Albumin Level 3.2 g/dL (3.4-5.0); Alkaline Phosphatase 85 U/L (46-116); Anion Gap 15.5; Aspartate Amino Transferase 23 U/L (15-37); BUN Creatinine Ratio 19.5; Bilirubin Total 0.7 mg/dL (0.2-1.0); Calcium 9.8 mg/dL (8.5-10.1); Carbon Dioxide 25.3 mmol/L (21.0-32.0); Chloride 97 mmol/L (98-107); Estimated GFR (African America >60 (>=60 mL/min/1.73m^2); Estimated GFR (Non-African Ame >60 (>=60 mL/min/1.73m^2); Globulin 3.7 g/dL; Glucose 124 mg/dL (74-106); Potassium 3.8 mmol/L (3.5-5.1); Sodium 134 mmol/L (136-145); Total Protein 6.9 g/dL (6.4-8.2); Troponin I High Sensitivity 7.9 pg/mL (4.0-51.3)
[2024-07-16 16:18] LABS: Lymphocytes Absolute Manual 0.33 10^3/uL (1.20-3.80); Monocytes Absolute Manual 0.66 10^3/uL (0.30-0.80)
[2024-07-16 16:21] LABS: Lactate/Lactic Acid 2.6 mmol/L (0.4-2.0)
--- NOTE | 2024-07-16 16:37 | ED.SOB1 ---
HPI - SOB/Dyspnea General Chief Complaint: Shortness of Breath/Dyspnea Stated Complaint: Chest Pain Time Seen by Provider: 07/16/24 15:29 Source: patient and family Mode of arrival: Wheelchair Limitations: no limitations History of Present Illness HPI Narrative: Patient presents to ED complaining of shortness of breath. She was sent over by her nurse practitioner at Dr. Christine's office. She has a history of COPD and she arrived to the office short of breath tachycardic and tachypneic. She was not hypoxic. She was exposed to pneumonia recently. She has a history of bladder cancer and she is undergoing chemo for that treatment however she is done with her chemo. She is supposed to have a scan at the [facility] in a couple of weeks to see if the chemo has helped shrink any of the bladder cancer. She states that she is still urinating and having normal bowel movements. She does complain of some left-sided abdominal pain. No vomiting. She does report a weight loss since all of this has started. She sees Dr. Shabazz, urology but is also following with [facility]. Patient denies any chest pain. She is receiving a breathing treatment upon arrival due to moderate respiratory distress. No history of A-fib or a flutter. EKG shows sinus tachycardia. Related Data Home Medications ?Medication ?Instructions ?Recorded ?Confirmed amlodipine 5 mg tablet 5 mg PO QDAY 08/14/23 01/25/24 arformoterol 15 mcg/2 mL solution 15 mcg inhalation Q12H 08/14/23 01/25/24 for nebulization atorvastatin 40 mg tablet 40 mg PO BEDTIME 08/14/23 01/25/24 budesonide 0.5 mg/2 mL suspension 0.5 mg inhalation BID 08/14/23 01/25/24 for nebulization losartan 100 mg tablet 100 mg PO DAILY 08/14/23 01/25/24 meloxicam 7.5 mg tablet 7.5 mg PO DAILY 08/14/23 01/25/24 multivitamin 1 tab PO DAILY 08/14/23 01/25/24 pantoprazole 40 mg tablet,delayed 40 mg PO DAILY 08/14/23 01/25/24 release revefenacin 175 mcg/3 mL solution 175 mcg inhalation DAILY 08/14/23 01/25/24 for nebulization (Micki) escitalopram oxalate 10 mg tablet 20 mg PO DAILY 01/21/24 01/25/24 gabapentin 300 mg capsule 300 mg PO DAILY 01/21/24 01/25/24 guaifenesin 600 mg tablet, 1,200 mg PO Q12H 01/21/24 01/25/24 extended release 12 hr (Mucus Relief ER) prednisone 5 mg tablet 5 mg PO DAILY 01/21/24 01/25/24 psyllium husk 0.4 gram capsule 0.4 g PO DAILY 01/21/24 01/25/24 (Daily Fiber) vitamin E 268 mg (400 unit) capsule 180 mg PO DAILY 01/21/24 01/25/24 zinc 50 mg capsule 50 mg PO DAILY 01/21/24 01/25/24 Previous Rx's ?Medication ?Instructions ?Recorded metoprolol succinate 100 mg 100 mg PO DAILY #30 tabs 08/16/23 tablet,extended release 24 hr nitrofurantoin 100 mg PO BID start morning of 01/23/24 monohydrate/macrocrystals 100 mg fernandez removal #2 caps capsule (Macrobid) oxybutynin chloride 5 mg tablet 5 mg PO TID PRN bladder spasms #60 01/23/24 tabs ciprofloxacin HCl 500 mg tablet 500 mg PO BID 7 days #14 tabs 01/30/24 (Cipro) ondansetron 4 mg disintegrating 4 mg PO Q6H PRN nausea and 01/30/24 tablet vomiting #12 tabs oxycodone-acetaminophen 5 mg-325 1 tab PO Q6H PRN pain 3 days #12 01/30/24 mg tablet (Percocet) tabs Allergies Allergy/AdvReac Type Severity Reaction Status Date / Time codeine AdvReac Severe Nausea Verified 01/25/24 22:07 Review of Systems ROS Status of ROS 10 or more systems reviewed and unremarkable except as noted in history and below [facility] Medical History (Updated 07/16/24 @ 18:38 by Aidan Sol RN) COPD (chronic obstructive pulmonary disease) ?J44.9 - Chronic obstructive pulmonary disease, unspecified (ICD-10) Hematuria ?R31.9 - Hematuria, unspecified (ICD-10) 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 - Eqdsa-6-gzbfybgwhwj deficiency (ICD-10) COVID-19 ?U07.1 - COVID-19 (ICD-10) Bladder mass ?N32.89 - Other specified disorders of bladder (ICD-10) Anxiety and depression ?F41.9 - Anxiety disorder, unspecified (ICD-10) ?F32.A - Depression, unspecified (ICD-10) Restless legs ?G25.81 - Restless legs syndrome (ICD-10) Osteoporosis ?M81.0 - Age-related osteoporosis without current pathological fracture (ICD-10) Hyperlipidemia ?E78.5 - Hyperlipidemia, unspecified (ICD-10) HTN (hypertension) ?I10 - Essential (primary) hypertension (ICD-10) COPD (chronic obstructive pulmonary disease) ?J44.9 - Chronic obstructive pulmonary disease, unspecified (ICD-10) 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 - Disease of appendix, unspecified (ICD-10) Normal colonoscopy Hernia of abdominal wall ?K43.9 - Ventral hernia without obstruction or gangrene (ICD-10) Cataract ?H26.9 - Unspecified cataract (ICD-10) Surgical History Hx of appendectomy ?Z90.49 - Acquired absence of other specified parts of digestive tract (ICD-10) H/O hernia repair ?Z98.890 - Other specified postprocedural states (ICD-10) ?Z87.19 - Personal history of other diseases of the digestive system (ICD-10) History of partial hysterectomy ?Z90.711 - Acquired absence of uterus with remaining cervical stump (ICD-10) Family History (Updated 01/21/24 @ 13:42 by Usha Ramirez RN) Other Family history of COPD (chronic obstructive pulmonary disease) Family history of cancer Social History Within the past year, how often did you have a drink containing alcohol: never Score interpretation: A score less than 3 is consistent with normal alcohol consumption. Smoking status: Former smoker Second hand tobacco smoke exposure: Yes Non-prescribed substance use: denies use Previous occupational history: retired Highest level of school completed/degree received: 9th grade Little interest or pleasure in doing things: not at all Feeling down, depressed, or hopeless: not at all Exam Narrative Exam Narrative: Time Seen: [] Vital Signs: [Per nurse's notes.] General: [Alert] Skin: [Warm, dry, no rash.] Head: [Normocephalic, atraumatic.] Neck: [Supple, trachea midline.] Eye: [Pupils are equal, round and reactive to light, extraocular movements are intact, normal conjunctiva.] Ears, nose, mouth and throat: oral mucosa moist. Cardiovascular: Tachycardia, no murmur.] Respiratory: Diminished breath sounds bilaterally, diffuse inspiratory expiratory wheezing. Moderate respiratory distress. Tachypnea. Chest wall: [No tenderness, no deformity.] Gastrointestinal: [Soft, mild left lower quadrant tenderness no rebound no guarding non distended, normal bowel sounds.] MSK: 5 out of 5 muscle strength x 4 extremities no calf pain or edema Lymphatics: [No lymphadenopathy.] Psychiatric: [Cooperative, appropriate mood & affect.] Neurological: [Alert and oriented to person, place, time, and situation, no focal neurological deficit observed.] Constitutional Vital Signs, click to edit/add: Last Vital Signs Temp 98.9 F 07/16/24 15:31 Pulse 145 H 07/16/24 18:30 Resp 23 H 07/16/24 18:30 BP 129/102 H 07/16/24 18:30 Pulse Ox 94 L 07/16/24 18:30 O2 Del Method Room Air 07/16/24 16:03 Course Vital Signs Vital signs: Vital Signs Temperature 98.9 F 07/16/24 15:31 Pulse Rate 154 H 07/16/24 15:31 Respiratory Rate 26 H 07/16/24 15:31 Blood Pressure 144/91 H 07/16/24 15:31 Pulse Oximetry 97 07/16/24 15:31 Oxygen Delivery Method Room Air 07/16/24 15:31 Temperature 98.9 F 07/16/24 15:31 Pulse Rate 145 H 07/16/24 18:30 Respiratory Rate 23 H 07/16/24 18:30 Blood Pressure 129/102 H 07/16/24 18:30 Pulse Oximetry 94 L 07/16/24 18:30 Oxygen Delivery Method Room Air 07/16/24 16:03 MDM - SOB/Dyspnea MDM Narrative Medical decision making narrative: Patient is feeling slightly better after breathing treatment. She is still tachycardic and tachypneic and speaking in short sentences. CT scan does not show any PE. CT scan abdomen shows the bladder mass which she is aware of. No hydronephrosis or obstruction. This is being followed outpatient by Dr. Shabazz and her doctor in [facility]. She has an appointment scheduled with him on the . Patient will be admitted for respiratory therapy respiratory treatments. She has mucous plugging and abnormal vital signs as well as mild to moderate respiratory distress. I spoke to Carrie who is covering for Dr. Aparicio overnight and she agrees with admission. Patient states she is comfortable right now and does not feel like she needs another breathing treatment quite yet. I told her to let us know if she feels like she needs 1. Alert and oriented. Stable for admission to telemetry floor. Differential Diagnosis Differential diagnosis: Likely acute exacerbation of chronic obstructive airways disease, congestive heart failure, community acquired pneumonia and pulmonary embolism Medical Records Attestation: I reviewed the patient's medical records. Lab Data Attestation: I reviewed the patient's lab results. Labs: Lab Results 07/16/24 07/16/24 Range/Units 15:36 15:45 WBC 16.6 H (4.0-11.0) 10^3/uL RBC 3.91 L (4.20-5.40) 10^6/uL Hgb 12.2 (12.0-16.0) g/dL Hct 37.3 (36.0-48.0) % MCV 95.4 (81.0-99.0) fL MCH 31.2 (26.7-34.0) pg MCHC 32.7 (29.9-35.2) g/dL RDW 20.4 H (11.0-15.0) % Plt Count 425 (150-450) 10^3/uL MPV 9.2 L (9.5-13.5) fL Seg Neuts % (Manual) 94.0 H (43.0-75.0) Lymphocytes % (Manual) 2.0 L (20.5-60.0) % Monocytes % (Manual) 4.0 (1.7-12.0) % Eosinophils % (Manual) 0.0 L (0.9-7.0) % Basophils % (Manual) 0.0 L (0.2-2.0) % Neutrophils # (Manual) 15.60 H (1.4-6.5) 10^3/uL Lymphocytes # (Manual) 0.33 L (1.20-3.80) 10^3/uL Monocytes # (Manual) 0.66 (0.30-0.80) 10^3/uL Eosinophils # (Manual) 0.00 (0.00-0.70) 10^3/uL Basophils # (Manual) 0.00 (0.00-0.10) 10^3/uL PT 10.8 (9.0-11.6) sec INR 1.02 Sodium 134 L (136-145) mmol/L Potassium 3.8 (3.5-5.1) mmol/L Chloride 97 L (98-107) mmol/L Carbon Dioxide 25.3 (21.0-32.0) mmol/L Anion Gap 15.5 BUN 16.0 (7.0-18.0) mg/dL Creatinine 0.82 (0.55-1.02) mg/dL Est GFR ( Amer) >60 (>=60 mL/min/1.73m^2) Est GFR (Non-Af Amer) >60 (>=60 mL/min/1.73m^2) BUN/Creatinine Ratio 19.5 Glucose 124 H (74-106) mg/dL Lactate 2.6 H* (0.4-2.0) mmol/L Calcium 9.8 (8.5-10.1) mg/dL Total Bilirubin 0.7 (0.2-1.0) mg/dL AST 23 (15-37) U/L ALT 31 (14-59) U/L Alkaline Phosphatase 85 (46-116) U/L Troponin I High Sens 7.9 (4.0-51.3) pg/mL NT-Pro-B Natriuret Pep 289.0 (<=900.0) pg/mL Total Protein 6.9 (6.4-8.2) g/dL Albumin 3.2 L (3.4-5.0) g/dL Globulin 3.7 g/dL Albumin/Globulin Ratio 0.9 Influenza Type A Ag Negative Influenza Type B Ag Negative SARS-CoV-2 Ag (CV2AG) Negative (NEGATIVE) Imaging Data CT scan - chest: Radiologist's impression: ITS Impressions Chest X-Ray 07/16/24 15:42 IMPRESSION: No focal opacity. Probable trace bilateral effusions. Electronically authenticated by: TIERRA PRICE Date: 07/16/2024 16:06 Abdomen/Pelvis CT 07/16/24 17:26 IMPRESSION: No evidence of acute pulmonary embolus. Bilateral centrilobular emphysema. Patchy bilateral lower lobes bronchial thickening and mucous plugging. Lobulated, hyperenhancing mass is noted arising from left urinary bladder wall, measuring 3.6 x 2.4 x 2.5 cm, suspicious for neoplasm. Constipation. Electronically authenticated by: JAMILA MAURICIO Date: 07/16/2024 18:05 Chest CTA 07/16/24 17:26 IMPRESSION: No evidence of acute pulmonary embolus. Bilateral centrilobular emphysema. Patchy bilateral lower lobes bronchial thickening and mucous plugging. Lobulated, hyperenhancing mass is noted arising from left urinary bladder wall, measuring 3.6 x 2.4 x 2.5 cm, suspicious for neoplasm. Constipation. Electronically authenticated by: JAMILA RipCodeRAKELDidLog Date: 07/16/2024 18:05 ECG Data Attestation: I personally reviewed and interpreted this ECG as follows: Interpretation: EKG INTERPRETATION Time: [] 1536 Rate: [] 144 Rhythm: _ [] Sinus tachycardia ST segments: _ [] No acute ST elevation or depression T waves: _ [] Ectopy: _ [] P wave/TX interval: _ [] QRS interval: _ [] QT interval: _ [] Comparison: _ [] Comparison EKG date: [] Performed by: [self] occasional supraventricular premature complexes Discharge Plan Discharge Chief Complaint: Shortness of Breath/Dyspnea Time of Disposition Decision: 18:42 Prescriptions / Home Meds: No Action atorvastatin 40 mg tablet 40 mg PO BEDTIME amlodipine 5 mg tablet 5 mg PO QDAY losartan 100 mg tablet 100 mg PO DAILY meloxicam 7.5 mg tablet 7.5 mg PO DAILY pantoprazole 40 mg tablet,delayed release (DR/EC) 40 mg PO DAILY multivitamin Tablet 1 tab PO DAILY Yupelri 175 mcg/3 mL solution for nebulization 175 mcg inhalation DAILY arformoterol 15 mcg/2 mL solution for nebulization 15 mcg inhalation Q12H budesonide 0.5 mg/2 mL suspension for nebulization 0.5 mg inhalation BID metoprolol succinate 100 mg tablet extended release 24 hr 100 mg PO DAILY Qty: 30 0RF escitalopram oxalate 10 mg tablet 20 mg PO DAILY gabapentin 300 mg capsule 300 mg PO DAILY prednisone 5 mg tablet 5 mg PO DAILY guaifenesin [Mucus Relief ER] 600 mg tablet extended release 12hr 1,200 mg PO Q12H zinc 50 mg capsule 50 mg PO DAILY psyllium husk [Daily Fiber] 0.4 gram capsule 0.4 g PO DAILY vitamin E 268 mg (400 unit) capsule 180 mg PO DAILY oxybutynin chloride 5 mg tablet 5 mg PO TID PRN (Reason: bladder spasms) Qty: 60 1RF nitrofurantoin monohyd/m-cryst [Macrobid] 100 mg capsule 100 mg PO BID Qty: 2 0RF Rx Instructions: must administer with a meal/food ciprofloxacin HCl [Cipro] 500 mg tablet 500 mg PO BID 7 Days Qty: 14 0RF oxycodone-acetaminophen [Percocet] 5-325 mg tablet 1 tab PO Q6H PRN (Reason: pain) 3 Days Qty: 12 0RF Rx Instructions: DX R10.9 ondansetron 4 mg tablet,disintegrating 4 mg PO Q6H PRN (Reason: nausea and vomiting) Qty: 12 0RF Print Language: Bulgarian
--- NOTE | 2024-07-16 17:26 | CT_ITS ---
[address] [address] Patient Name: ANGELITA ADRIAN MRN: [id number] date: 1955 Sex: F Assigned Patient Location: ER Current Patient Location: ER Accession/Order Number: [id number] Exam Date: 07/16/2024 17:13 Report Date: 07/16/2024 18:05 At the request of: EVANGELINA JIMÉNEZ Procedure: CT abdomen pelvis w con EXAM: CT angio chest, CT abdomen pelvis w con HISTORY: r/o PE COMPARISON: 08/14/2023 and 01/30/2024 TECHNIQUE: CT chest with intravenous contrast was performed with timing for the evaluation for pulmonary arteries. MIP (maximum intensity projection) images or 3D post processing was performed. Multiplanar reformats were performed. Subsequent CT imaging of the abdomen and pelvis was performed with intravenous contrast with multiplanar reformats performed. Dose reduction techniques were achieved by using automated exposure control and/or adjustment of mA and/or kV according to patient size and/or use of iterative reconstruction technique. FINDINGS: Lungs: Bilateral centrilobular emphysema. Patchy bilateral lower lobes bronchial thickening and mucous plugging. No consolidation, pneumothorax, or effusion. Airways: Normal. Mediastinum: No adenopathy. Aorta: No aneurysm. Cardiac: Normal size. No pericardial effusion. Pulmonary vasculature: Diagnostic opacification of pulmonary arteries without evidence of pulmonary embolus. Normal morphology. Bones: No acute bony abnormality. Axilla: No adenopathy. Thyroid gland: No abnormality demonstrated on provided imaging. Soft tissues: Unremarkable. Additional findings: None. CT ABDOMEN AND PELVIS: GI upper: Unremarkable. Liver: Normal size and contour. Gallbladder: No significant abnormality. No cholelithiasis. Biliary system: No intra or extrahepatic biliary ductal dilatation. Spleen: Normal size. Pancreas: Unremarkable. Adrenal glands: Normal adrenal glands. Kidneys/ureters: Normal contours. No hydronephrosis. No nephrolithiasis or ureterolithiasis. Vessels: No aneurysm. Lymph Nodes: No lymphadenopathy. Small bowel: No wall thickening or dilatation. Colon: No wall thickening or dilatation. Moderate volume stool burden. Appendix: No findings of appendicitis. Peritoneal cavity: No free fluid or peritoneum. Lower : Lobulated, hyperenhancing mass is noted arising from left urinary bladder wall, measuring 3.6 x 2.4 x 2.5 cm, suspicious for neoplasm. Hysterectomy. Bones: No acute bony abnormality. Soft tissues: No acute finding. Additional findings: None. CT/CT abdomen pelvis w con IMPRESSION: No evidence of acute pulmonary embolus. Bilateral centrilobular emphysema. Patchy bilateral lower lobes bronchial thickening and mucous plugging. Lobulated, hyperenhancing mass is noted arising from left urinary bladder wall, measuring 3.6 x 2.4 x 2.5 cm, suspicious for neoplasm. Constipation. Electronically authenticated by: JAMILA MAURICIO Date: 07/16/2024 18:05
--- NOTE | 2024-07-16 17:26 | CT_ITS ---
[address] [address] Patient Name: ANGELITA ADRIAN MRN: [id number] date: 1955 Sex: F Assigned Patient Location: ER Current Patient Location: ER Accession/Order Number: [id number] Exam Date: 07/16/2024 17:13 Report Date: 07/16/2024 18:05 At the request of: EVANGELINA JIMÉNEZ Procedure: CT angio chest EXAM: CT angio chest, CT abdomen pelvis w con HISTORY: r/o PE COMPARISON: 08/14/2023 and 01/30/2024 TECHNIQUE: CT chest with intravenous contrast was performed with timing for the evaluation for pulmonary arteries. MIP (maximum intensity projection) images or 3D post processing was performed. Multiplanar reformats were performed. Subsequent CT imaging of the abdomen and pelvis was performed with intravenous contrast with multiplanar reformats performed. Dose reduction techniques were achieved by using automated exposure control and/or adjustment of mA and/or kV according to patient size and/or use of iterative reconstruction technique. FINDINGS: Lungs: Bilateral centrilobular emphysema. Patchy bilateral lower lobes bronchial thickening and mucous plugging. No consolidation, pneumothorax, or effusion. Airways: Normal. Mediastinum: No adenopathy. Aorta: No aneurysm. Cardiac: Normal size. No pericardial effusion. Pulmonary vasculature: Diagnostic opacification of pulmonary arteries without evidence of pulmonary embolus. Normal morphology. Bones: No acute bony abnormality. Axilla: No adenopathy. Thyroid gland: No abnormality demonstrated on provided imaging. Soft tissues: Unremarkable. Additional findings: None. CT ABDOMEN AND PELVIS: GI upper: Unremarkable. Liver: Normal size and contour. Gallbladder: No significant abnormality. No cholelithiasis. Biliary system: No intra or extrahepatic biliary ductal dilatation. Spleen: Normal size. Pancreas: Unremarkable. Adrenal glands: Normal adrenal glands. Kidneys/ureters: Normal contours. No hydronephrosis. No nephrolithiasis or ureterolithiasis. Vessels: No aneurysm. Lymph Nodes: No lymphadenopathy. Small bowel: No wall thickening or dilatation. Colon: No wall thickening or dilatation. Moderate volume stool burden. Appendix: No findings of appendicitis. Peritoneal cavity: No free fluid or peritoneum. Lower : Lobulated, hyperenhancing mass is noted arising from left urinary bladder wall, measuring 3.6 x 2.4 x 2.5 cm, suspicious for neoplasm. Hysterectomy. Bones: No acute bony abnormality. Soft tissues: No acute finding. Additional findings: None. CT/CT angio chest IMPRESSION: No evidence of acute pulmonary embolus. Bilateral centrilobular emphysema. Patchy bilateral lower lobes bronchial thickening and mucous plugging. Lobulated, hyperenhancing mass is noted arising from left urinary bladder wall, measuring 3.6 x 2.4 x 2.5 cm, suspicious for neoplasm. Constipation. Electronically authenticated by: JAMILA MAURICIO Date: 07/16/2024 18:05
[2024-07-16] MEDS: METOPROLOL TARTRATE 5 MG/5 ML VIAL IVP (18:51)
[2024-07-16] MEDS: 0.9 % SODIUM CHLORIDE 500 ML IV (18:51)
[2024-07-16 19:02] LABS: Lactate/Lactic Acid 1.2 mmol/L (0.4-2.0)
--- OUTSIDE RECORDS SUMMARY | 2024-07-16 20:13 | XMS_ITS | CCD ---
Author Organization [facility] CliniSyut Care Team Providers Care Survey Technologist Name Role Phone FAWWAD, TSE H Admitting Unavailable FAWWAD, TSE H Attending Unavailable FAWWAD, TSE H Primary Care Unavailable FAWWAD, TSE H Consulting Unavailable SAMSA ., ÁLVARO Admitting Unavailable SAMSA ., ÁLVARO Attending Unavailable FAWWAD, TSE H Primary Care Unavailable DR THERESA LUCIA Consulting Unavailable SAMSA ., ÁLVARO Consulting Unavailable SAMSA ., ÁLVARO Admitting Unavailable SAMSA ., ÁLVARO Attending Unavailable FAWWAD, TSE H Primary Care Unavailable SAMSA ., ÁLVARO Admitting Unavailable SAMSA ., ÁLVARO Attending Unavailable FAWWAD, TSE H Primary Care Unavailable SAMSA ., ÁLVARO Consulting Unavailable FRANCIS ANDERSON Consulting Unavailable Fawwad, Tse Unavailable Unavailable Unavailable Amanda, Dr. Álvaro Fritz Referring Unavailab jeferson Holguin, Dr. Velasquez Attending Unavaila ble Trabfariba, Dr. Velasquez Referring Unavaila ble Traboulsskeith, Dr. Velasquez Attending Unavaila ble Traboulsskeith, Dr. Velasquez Referring Unavaila ble Traboulssi, Dr. Velasquez Attending Unavaila ble Trabfariba, Dr. Velasquez Attending Unavaila raul Allan MD, Tse Primary Care Provider [phone] Shaikh Allan MD Primary Care Provider Shaik Allan MDh Primary Care Provider BENNY HOLGUIN Attending Unavailable RADHA ALLANIKH Primary Care Unavailable NONE, XXXX Primary Care Physician Unavailab MD Lin Meade Attending Provider Lue, Lin M Attending Unavailable Lue, Lin M Admitting Unavailable Lue, Lin M. Admitting Unavailable Lue, [...] M. Attending Unavailable ALEJANDRO WARE Attending Unavailable Unavailable Primary Care Provider Unavailmare Dunn MD, Lee Unavailable Shonda RN, Sergei Unavailable Masha Knight APRN.CNP Unavailable [phone], Katia Unavailable [phone] Krystal La Unavailable Unavailable Emerson Pinto MD Primary Care Provider [phone] [address], Rd Unavailable [phone] FAWWARADHA EsquivelIKH Attending Unavailable FAWWAD, TSE Attending Unavailable FAWWAD, TSE Attending Unavailable FAWWAD, TSE Attending Unavailable FAWWAD, TSE Attending Unavailable FORD, RD Attending Unavailabl e FAWWAAlvin, TSE Attending Unavailable FORD RD Attending Unavailabl e ABHYANKAR, LEE Referring Unavailable ANA PAULA, KATIA Attending Unavailabl e ABHYANKAR, LEE Attending Unavailable ABHYANKAR, LEE Referring Unavailable ABHYANKAR, LEE Referring Unavailable ANA PAULA, KATIA Attending Unavailabl e ABHYANKAR, LEE Attending Unavailable LUE, LIN M Referring Unavailable ABHYANKAR, LEE Referring Unavailable ANA PAULA, KATIA Attending UnavailMASHA Martin Attending Unavailable ANA PAULA, KATIA Attending Unavailabl e ABHYANKAR, LEE Referring Unavailable ANA PAULA, KATIA Attending UnavailMASHA Martin Referring Unavailable ANA PAULA, KATIA Attending Unavailabl e ABHYANKAR, LEE Attending Unavailable LEE DUNN Referring Unavailable DORIS DUPREE Attending Unavailable Allergies Allergy Classification Reported Allergen(s) Allergy Type Date of Onset Reaction(s) Facility [facility] (4 sources) Codeine; 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: [codeine] Drug Allergy Nausea (finding) [facility] (2 sources) Codeine; 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: [CODEINE] Drug Allergy 7 [facility] (18 sources) Codeine; 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: [Codeine Derivatives] Drug Allergy 9 Nausea Only, GI intolerance, Other, Nausea/vomiting , Nausea (finding) [facility] (1 source) Codeine Drug Allergy 8 [facility] Rep[facility] Medications Current Medications Medication Drug Class(es) Dates Sig (Normalized) Sig (Original) acetaminophen 500 mg oral tablet (1 source) Start: 09-25-2017 take 500 mg by mouth every twelve hours Acetaminophen Active 500 MG PO Q12H September 25, 2017 1:00am acetaminophen 325 mg / oxyCODONE hydrochloride 5 mg oral tablet (6 sources) Opioid Agonist Start: 02-01-2024 End: 07-01-2024 oxyCODONE-acetamino phen (Percocet) 5-325 MG tablet Refill(s) 0 02/01/2024 07/01/2024 Discontinued (Med list cleanup) [id number] 200 actuat albuterol 0.09 mg/actuat metered dose inhaler (16 sources) beta2-Adrenergic Agonist Start: 10-19-2022 take 2 [...] the evening and 2 puffs before bedtime. Active take 1 puff(s) by in halation every four hours as needed Ventolin HFA 108 (90 Base) MCG/ACT Inhalation Aerosol Solution INHALE 1 PUFF EVERY 4 HOURS NEEDED. Quantity: 0 Refills: 0 Ordered: 26-Jan-2023 DO Active alendronic acid 70 mg oral tablet (20 sources) Bisphosphonate Start: 05-28-2023 take 1 tablet by mouth every week alendronate (Fosamax) 70 MG tablet Indications: Age-related osteoporosis without current pathological fracture (CMS/HCC) Take 1 tablet (70 mg) by mouth 1 (one) time per week 12 tablet 04/08/2024 Active Start: 09-25-2017 take 35 mg by mouth every week Alendronate Active 35 MG PO every week September 25, 2017 1:00am takes qfriday amLODIPine 5 mg oral tablet (20 sources) Dihydropyridine Calcium Channel Frederick Start: 09-25-2017 End: 01-11-2025 take 1 tablet by mouth once daily amLODIPine (Norvasc) 5 MG tablet Indications: Primary hypertension (CMS/HCC) Take 1 tablet (5 mg) by mouth Daily 90 tablet 1 07/15/2024 01/11/2025 Active arformoterol (20 sources) beta2-Adrenergic Agonist Start: 01-17-2024 arformoterol mcg, NEB Start Date: 01/17/24 Status: Ordered arformoterol (Br ovana) 15 MCG/2ML nebulizer solution Take 15 mcg by nebulization in the morning and 15 mcg before bedtime. Active arformoterol (BR OVANA) 15 mcg/2 mL nebulizer solution 15 mcg. Active take 1 dose by inhal ation twice daily in the morning Brovana 15 MCG/2ML Inhalation Nebulizati on Solution INHALE THE CONTENTS OF 1 VIAL TWO TIMES DAILY IN THE MORNING AND EVENING VIA STANDARD JET NEBULIZER DIRECTED. Quantity: 0 Refills: 0 Ordered: 26-Jan-2023 DO Active atorvastatin 40 mg oral tablet (20 sources) HMG-CoA Reductase Inhibitor Start: 09-25-2017 take 1 tablet by mouth at bedtime atorvastatin (Lipitor) 40 MG tablet Indications: Hyperlipidemia, unspecified (CMS/HCC) Take 1 tablet (40 mg) by mouth at bedtime 90 tablet 1 04/08/2024 Active biotin 5 mg oral capsule (20 sources) End: 07-01-2024 biotin 5 mg capsule Take 5 mg by mouth. Active Budesonide (20 sources) Corticosteroid Start: 01-17-2024 budesonide Start Date: 01/17/24 Status: Ordered budesonide (Pulm icort) 0.5 MG/2ML nebulizer solution Take 0.5 mg by nebulization in the morning and 0.5 mg before bedtime. Active take 2 mL by mouth twice daily b udesonide (Pulmicort) 0.5 mg/2 mL nebulizer solution Take 2 mL (0.5 mg) by nebulization 2 times a day. Rinse mouth with water after use to reduce aftertaste and incidence of candidiasis. Do not swallow. Active take 1 [IU] by inhalation twice [...] Status: Ordered cholecalciferol 0.05 mg oral tablet (11 sources) Vitamin D Start: 09-25-2017 take 1 tablet by mouth once daily Cholecalciferol (Vitamin D3) (Vitamin D3) 2,000 unit Tablet Active 1 TAB PO Daily September 25, 2017 1:00am ciprofloxacin 500 mg oral tablet (3 sources) Quinolone Antimicrobial Start: 02-01-2024 ciprofloxacin 500 mg Tab Refills(s) 0 Start Date: 02/01/24 Status: Ordered ensifentrine (OHTUVAYRE) 3 mg/2.5 mL suspension for nebulization (20 sources) ensifentrine (OHTUVAYRE) 3 mg/2.5 mL suspension for nebulization Use 3 mg via nebulizer two times a day. Active enteric contrast (will be provided with radiology test) (2 sources) Start: 06-20-2024 End: 06-21-2024 enteric contrast (will be provided with radiology test) For CT Chest Abdomen W IVCON order Administer, As Directed One Time Only, via Oral, Rectal, both Oral and Rectal, Enteric Tube, Stoma or Indwelling Catheter, Enteric Contrast as designated per enteric contrast guidelines 1 Each 06/20/2024 06/21/2024 Active Equate Clear-Lax (1 source) Start: 09-25-2017 take 8 [oz_av] by mouth once daily at bedtime Equate Clear-Lax Active 1 CAP PO Daily at bedtime September 25, 2017 1:00am in 8 oz water escitalopram 20 mg oral tablet (20 sources) Serotonin Reuptake Inhibitor Start: 01-08-2024 End: 07-06-2024 take 1 tablet by mouth once daily escitalopram (Lexapro) 20 MG tablet Indications: Current moderate episode of major depressive disorder without prior episode (HCC) (CMS/HCC) Take 1 tablet (20 mg) by mouth Daily 90 tablet 1 01/08/2024 Active Start: 09-24-2023 End: 12-23-2023 take 1 tablet [...] 09/24/2023 Discontinued estradiol 0.1 mg/ml vaginal cream (5 sources) Estrogen Start: 02-29-2024 End: 07-01-2024 Estrace 0.1 MG/GM vaginal cream See Instructions, 42.5 gm, Refill(s) 6, Apply pea-sized amount around the opening of the urethra and surrounding tissue 3 times per week at night for one month then 2 times per week after for maintenance., [employer] #72, 150, cm, 02/29/24 9:07:00 EDT, Height/Length Dosing, 56, kg, 02/29/24 9:07:00 EDT, Weight Dosing 02/29/2024 07/01/2024 Discontinued (Discontinued by another clinician) Start: 02-29-2024 Estrace 0.1 mg /g Cream See Instructions, 42.5 gm, Refill(s) 6, Apply pea-sized amount around the opening of the urethra and surrounding tissue 3 times per week at night for one month then 2 times per week after for maintenance., [employer] #72, 150, cm, 02/29/24 9:07:00 EDT, Height/Length Dosing, 56, kg, 02/29/24 9:07:00 EDT, Weight Dosing Start Date: 02/29/24 Status: Ordered fluticasone propionate 0.05 mg/actuat metered dose nasal spray (20 sources) Corticosteroid take 2 spray(s) nasa l route in the morning fluticasone (Flonase Allergy Relief) 50 MCG/ACT nasal spray Administer 2 sprays into each nostril in the morning. Active fluticasone (MARIYA NASE) 50 mcg/actuation nasal spray 2 Sprays. Active gabapentin 300 mg oral capsule (20 sources) Anti-epileptic Agent Start: 04-16-2024 End: 07-01-2024 take 1 capsule by mouth in the morning gabapentin (Neurontin) 300 MG capsule Indications: Restless legs syndrome Take 1 capsule (300 mg) by mouth in the morning and 1 capsule (300 mg) before bedtime. 180 capsule 07/01/2024 Active Start: 01-17-2024 gabapentin 300 mg Cap 300 mg = 1 cap(s), Daily Start Date: 01/17/24 Status: Ordered Start: 08-07-2023 End: 11-05-2023 take 1 capsule by mouth at bedtime gabapentin (Neurontin) 300 MG capsule Indications: Restless legs syndrome Take 1 capsule (300 mg) by mouth at bedtime 90 capsule 0 08/07/2023 11/05/2023 Active 12 hr guaiFENesin 600 mg extended release oral tablet (20 sources) Start: 10-17-2023 End: 07-01-2024 guaiFENesin (MUCINEX) 600 mg 12 hr tablet Take 1,200 mg by mouth. 10/17/2023 Active 200 actuat ipratropium bromide 0.017 mg/actuat metered dose inhaler (20 sources) Anticholinergic Start: 09-25-2017 Ipratropium (A TROVENT HFA) 17 mcg/actuation inhaler Inhale 2 Puffs as instructed. 09/25/2017 Active Start: 09-25-2017 take 1 puff(s) by in halation twice daily Ipratropium [place] (Atrovent Hfa) 17 mcg/actuation HFA aerosol inhaler Active 2 PUFF INHALATION Twice daily September 25, 2017 1:00am ipratropium (Atr ovent HFA) 17 MCG/ACT inhaler Inhale 2 puffs in the morning and 2 puffs at noon and 2 puffs in the evening and 2 puffs before bedtime. Active iv contrast (will be provide d with radiology test) (4 sources) Start: 06-20-2024 End: 06-21-2024 iv contrast (will be provide d with radiology test) CT Urogram WO/W Inject, intravenously, once for 1 dose.No IV access, insert saline lock prior to the beginning of sedation, infusion, injection of imaging exam. Discontinue saline lock post exam. If Pt. has a central line or IVAD, may access for administration according to line specific nursing protocol. Once exam is complete flush line and de-access according to line specific nursing protocol in the CT contrast administration guidelines link. 1 Each 06/20/2024 06/21/2024 Active Start: 06-20-2024 End: 06-21-2024 iv contrast (will be provide d with radiology test) CT Chest Abdomen-Inject, intravenously, once for 1 dose.No IV access, insert saline lock prior to the beginning of sedation, infusion, injection of imaging exam. Discontinue saline lock post exam. If Pt. has a central line or IVAD, may access for administration according to line specific nursing protocol. Once exam is complete flush line and de-access according to line specific nursing protocol in the CT contrast administration guidelines link. 1 Each 06/20/2024 06/21/2024 Active losartan potassium 100 mg oral tablet (20 sources) Angiotensin 2 Receptor Frederick Start: 05-28-2023 End: 07-07-2024 take 1 tablet by mouth once daily losartan (Cozaar) 100 MG tablet Indications: Primary hypertension (CMS/HCC) Take 1 tablet (100 mg) by mouth Daily 90 tablet 04/08/2024 Active Start: 09-25-2017 take 50 mg by mouth twice pardeep y Losartan Active 50 MG PO Twice daily September 25, 2017 1:00am take 1 tablet by marguerite th once daily Losartan Potassium 100 MG Oral Tablet TAKE 1 TABLET DAILY. Quantity: 0 Refills: 0 Ordered: 26-Jan-2023 DO Active meloxicam 7.5 mg oral tablet (20 sources) Nonsteroidal Anti-inflammatory Drug Start: 05-28-2023 End: 07-15-2024 take 1 tablet by mouth once daily meloxicam (Mobic) 7.5 MG tablet Indications: Pain in right hip Take 1 tablet (7.5 mg) by mouth Daily 90 tablet 1 07/15/2024 Active Start: 09-25-2017 take 7.5 mg by mouth twice walt ly Meloxicam Active 7.5 MG PO Twice daily September 25, 2017 1:00am menthol 100 mg/ml topical cream (10 sources) Menthol, Topical Analgesic, (Biofreeze) 10 % cream Apply 10 % topically 1 (one) time each day at the same time Active 24 hr metoprolol succinate 100 mg extended release oral tablet (20 sources) beta-Adrenergic Frederick Start: 12-31-2023 End: 01-11-2025 take 1 tablet by mouth once daily metoprolol succinate XL (Toprol-XL) 100 MG 24 hr tablet Indications: Primary hypertension (CMS/HCC) Take 1 tablet (100 mg) by mouth Daily Do not crush or chew. 90 tablet 1 07/15/2024 01/11/2025 Active Start: 09-24-2023 End: 12-23-2023 take 1 tablet [...] PO Daily September 25, 2017 1:00am ondansetron 8 mg oral tablet (20 sources) Serotonin-3 Receptor Antagonist Start: 04-25-2024 End: 04-25-2024 8 mg, INTRAVENOUS, ONCE, 1 dose, On Sun04/25/24 at 1000 Start: 04-08-2024 End: 05-30-2024 take 1 tablet by mouth every eight hours as needed ondansetron (ZOFRAN) 8 mg tablet Take 1 tablet by mouth every 8 hours as needed for nausea/vomiting. 90 tablet 1 05/30/2024 Active Start: 02-29-2024 End: 03-21-2024 take 1 tablet by mouth every six hours as needed for nausea and vomiting ondansetron (Zofran) 4 MG tablet TAKE 1 TABLET BY MOUTH EVERY 6 HOURS FOR 21 DAYS NEEDED FOR NAUSEA AND VOMITING 02/29/2024 Active Start: 02-01-2024 ondansetron 4 mg Dis Tab Refills(s) 0 Start Date: 02/01/24 Status: Ordered oxybutynin chloride 5 mg oral tablet (10 sources) Cholinergic Muscarinic Antagonist Start: 02-01-2024 oxybutynin 5 mg Tab Refills(s) 0 Start Date: 02/01/24 Status: Ordered pantoprazole 40 mg delayed release oral tablet (20 sources) Proton Pump Inhibitor Start: 05-28-2023 End: 07-15-2024 take 1 tablet by mouth once daily pantoprazole (ProtoNix) 40 MG EC tablet Indications: Gastroesophageal reflux disease without esophagitis Take 1 tablet (40 mg) by mouth Daily 90 tablet 1 07/15/2024 Active potassium chloride 20 meq powder for oral solution (15 sources) take 20 mEq by mouth in the morning potassium chloride (Klor-Con) 20 MEQ packet Take 20 mEq by mouth in the morning. Active take 1 tablet by mouth once pardeep y potassium chloride CR 20 mEq ER tablet Take 1 tablet (20 mEq) by mouth once daily. Do not crush or chew. Active pramipexole dihydrochloride 0.75 mg oral tablet (20 sources) Nonergot Dopamine Agonist Start: 12-31-2023 End: 07-08-2024 take 1 tablet by mouth at bedtime pramipexole (Mirapex) 0.75 MG tablet Indications: RLS (restless legs syndrome) Take 1 tablet (0.75 mg) by mouth at bedtime 90 tablet 04/09/2024 Active Start: 08-02-2023 End: 10-01-2023 take 1 tablet [...] 0 Refills: 0 Ordered: 26-Jan-2023 DO Active Yupelri (20 sources) Start: 01-17-2024 take 1 ug by inhalat ion once daily Yupelri mcg, Inhalation, Daily Start Date: 01/17/24 Status: Ordered revefenacin (Yup elri) 175 MCG/3ML nebulizer solution Take 175 mcg by nebulization in the morning. Active revefenacin (YUP ELRI) 175 mcg/3 mL solution for nebulization 175 mcg. Active revefenacin (Yup elri) 175 mcg/3 mL nebulizer solution Take 3 mL (175 mcg) by nebulization once daily. Active take 1 puff(s) by inhalation onc e daily Yupelri 175 MCG/3ML Inhalation Solution INHALE 1 PUFFS Daily Quantity: 0 Refills: 0 Ordered: 26-Jan-2023 DO Active sodium chloride 1000 mg oral tablet (20 sources) Start: 07-07-2024 End: 07-17-2024 take 1 tablet by mouth once daily sodium chloride soluble tablet 1 g TAKE 1 TABLET BY MOUTH ONCE DAILY FOR 10 DAYS 10 tablet 07/07/2024 07/17/2024 Active Start: 06-20-2024 End: 06-20-2024 0.9 % sodium chloride (NACL 0.9%) infusion Administer at rate defined per CT contrast administration specifications. To be provided with radiology test. 150 mL 06/20/2024 06/20/2024 Active Start: 06-06-2024 End: 06-06-2024 500 mL, INTRAVENOUS, at 999 mL/hr, Administer over 0.5 Hours, ONCE, 1 dose, On Sun06/06/24 at 1100, Administer after chemotherapy. Start: 05-30-2024 End: 05-30-2024 500 mL, INTRAVENOUS, at 999 mL/hr, Administer over 0.5 Hours, ONCE, 1 dose, On Sun05/30/24 at 1130, Administer after chemotherapy. Start: 05-16-2024 End: 05-16-2024 999 mL/hr, INTRAVENOUS, Admi nister over 1 Hours, ONCE, 1 dose, On Sun05/16/24 at 1330, Give after chemotherapy. Start: 05-16-2024 End: 05-16-2024 1,000 mL, INTRAVENOUS, at 99 9 mL/hr, Administer over 1 Hours, ONCE, 1 dose, On Sun05/16/24 at 1100, Administer prior to chemotherapy. Start: 05-09-2024 End: 05-09-2024 999 mL/hr, INTRAVENOUS, Admi nister over 1 Hours, ONCE, 1 dose, On Sun05/09/24 at 1330, Give after chemotherapy. Start: 05-09-2024 End: 05-09-2024 1,000 mL, INTRAVENOUS, at 99 9 mL/hr, Administer over 1 Hours, ONCE, 1 dose, On Sun05/09/24 at 1100, Administer prior to chemotherapy. Start: 04-25-2024 End: 04-25-2024 999 mL/hr, INTRAVENOUS, Admi nister over 1 Hours, ONCE, 1 dose, On Sun04/25/24 at 1300, Give after chemotherapy. Start: 04-25-2024 End: 04-25-2024 1,000 mL, INTRAVENOUS, at 99 9 mL/hr, Administer over 1 Hours, ONCE, 1 dose, On Sun04/25/24 at 1100, Administer prior to chemotherapy. Start: 04-18-2024 End: 04-18-2024 1,000 mL, INTRAVENOUS, at 99 9 mL/hr, Administer over 1 Hours, ONCE, 1 dose, On Sun04/18/24 at 1130, Administer prior to chemotherapy. Start: 04-08-2024 End: 04-18-2024 take 1 tablet by mouth once daily sodium chloride soluble tablet 1 g Take 1 tablet by mouth once daily for 10 days. 10 tablet 04/08/2024 04/18/2024 Active traZODone hydrochloride 50 mg oral tablet (13 sources) Serotonin Reuptake Inhibitor Start: 01-17-2024 traZODONE 50 mg Tab 50 mg = 1 tab(s), Once a day (at bedtime) Start Date: 01/17/24 Status: Ordered Start: 12-31-2023 traZODone (Tristian yrel) 100 MG tablet Indications: Current moderate episode of major depressive disorder without prior episode (HCC) (CMS/HCC) , Psychophysiological insomnia 1-2 tablets at night. 90 tablet 1 12/31/2023 Active varenicline 0.5 mg oral tablet (3 sources) Partial Cholinergic Nicotinic Agonist Start: 03-31-2024 End: 07-01-2024 take 1 tablet by mouth once daily, then take 1 tablet by mouth twice daily, then take 2 tablets by mouth once daily Varenicline Tartrate, Starter, (Chantix Starting Month ) 0.5 MG X 11 & 1 MG X 42 tablet therapy pack Indications: Tobacco abuse Take 0.5 mg by mouth Daily for 3 days, THEN 0.5 mg 2 (two) times a day for 4 days, THEN 1 mg Daily. 1 each 03/31/2024 07/01/2024 Discontinued (Med list cleanup) vitamin b12 1 mg extended release oral tablet (6 sources) Vitamin B12 End: 07-01-2024 Cyanocobalamin (Vitamin B12) 1000 MCG tablet controlled-release Take 1,000 mg by mouth 1 (one) time each day at the same time 07/01/2024 Discontinued (Med list cleanup) Vitamin E (6 sources) Start: 01-17-2024 vitamin E Oral Start Date: 01/17/24 Status: Ordered Zinc (6 sources) Start: 01-17-2024 Zinc 50 mg Start Date: 01/17/24 Status: Ordered Zinc Sulfate (20 sources) zinc sulfate (ZINC-15 ORAL) Take by mouth. Active Completed/Discontinued Medications Medication Drug Class(es) Dates Sig (Normalized) Sig (Original) CISplatin 33.75 mg in NaCl 0.9% 1,083.75 mL (PLATINOL) (1 source) Start: 06-20-2024 End: 06-20-2024 33.75 mg (25 mg/m2 1.35 m2 Treatment Plan BSA from Recorded weight), INTRAVENOUS, Administer over 1 Hours, ONCE, 1 dose, On Sun06/20/24 at 1300, EXP: 06/21/2024 1700 RT Hazardous Chemotherapy Drug: Use appropriate PPE. Antineoplastic Vesicant for concentrations greater than 0.4 mg/mL - Antineoplastic Irritant for concentrations less than 0.4 mg/mL. Protect from Light. CISplatin 35.5 mg in NaCl 0.9% 1,085.5 mL (PLATINOL) (5 sources) Start: 06-06-2024 End: 06-06-2024 35.5 mg (25 mg/m2 1.42 m2 Treatment Plan BSA from Recorded weight), INTRAVENOUS, Administer over 1 Hours, ONCE, 1 dose, On Sun06/06/24 at 1230, EXP: 0300 06/08/24 Hazardous Chemotherapy Drug: Use appropriate PPE. Antineoplastic Vesicant for concentrations greater than 0.4 mg/mL - Antineoplastic Irritant for concentrations less than 0.4 mg/mL. Protect from Light. Start: 05-30-2024 End: 05-30-2024 35.5 mg (25 mg/m2 1.42 m2 Tr eatment Plan BSA from Recorded weight), INTRAVENOUS, Administer over 1 Hours, ONCE, 1 dose, On Sun05/30/24 at 1300, EXP: 05/31/2024 1715 RT Hazardous Chemotherapy Drug: Use appropriate PPE. Antineoplastic Vesicant for concentrations greater than 0.4 mg/mL - Antineoplastic Irritant for concentrations less than 0.4 mg/mL. Protect from Light. Start: 05-16-2024 End: 05-16-2024 35.5 mg (25 mg/m2 1.42 m2 Tr eatment Plan BSA from Recorded weight), INTRAVENOUS, Administer over 1 Hours, ONCE, 1 dose, On Sun05/16/24 at 1230, EXP: 05/17/2024 1730 RT Hazardous Chemotherapy Drug: Use appropriate PPE. Antineoplastic Vesicant for concentrations greater than 0.4 mg/mL - Antineoplastic Irritant for concentrations less than 0.4 mg/mL. Protect from Light. Start: 05-09-2024 End: 05-09-2024 35.5 mg (25 mg/m2 1.42 m2 Tr eatment Plan BSA from Recorded weight), INTRAVENOUS, Administer over 1 Hours, ONCE, 1 dose, On Sun05/09/24 at 1230, EXP: 05/10/2024 1645 RT Hazardous Chemotherapy Drug: Use appropriate PPE. Antineoplastic Vesicant for concentrations greater than 0.4 mg/mL - Antineoplastic Irritant for concentrations less than 0.4 mg/mL. Protect from Light. Start: 04-25-2024 End: 04-25-2024 35.5 mg (25 mg/m2 1.42 m2 Tr eatment Plan BSA from Recorded weight), INTRAVENOUS, Administer over 1 Hours, ONCE, 1 dose, On Sun04/25/24 at 1200, EXP: 04/26/2024 20315 RT Hazardous Chemotherapy Drug: Use appropriate PPE. Antineoplastic Vesicant for concentrations greater than 0.4 mg/mL - Antineoplastic Irritant for concentrations less than 0.4 mg/mL. Protect from Light. 1 ml dexamethasone phosphate 10 mg/ml injection (3 sources) Corticosteroid Start: 06-20-2024 End: 06-20-2024 10 mg, INTRAVENOUS, ONCE, 1 dose, On Sun06/20/24 at 1100, Administer over 5 minutes. Start: 06-06-2024 End: 06-06-2024 10 mg, INTRAVENOUS, ONCE, 1 dose, On Sun06/06/24 at 1030, Administer over 5 minutes. Start: 05-30-2024 End: 05-30-2024 10 mg, INTRAVENOUS, ONCE, 1 dose, On Sun05/30/24 at 1100, Administer over 5 minutes. dexAMETHasone 10 mg in NaCl 0.9% 50 mL (DECADRON) (4 sources) Start: 05-16-2024 End: 05-16-2024 10 mg, INTRAVENOUS, ONCE, 1 dose, On Sun05/16/24 at 1030, Refrigerate. Start: 05-09-2024 End: 05-09-2024 10 mg, INTRAVENOUS, ONCE, 1 dose, On Sun05/09/24 at 1030, Refrigerate. Start: 04-25-2024 End: 04-25-2024 10 mg, INTRAVENOUS, ONCE, 1 dose, On Sun04/25/24 at 1100, Refrigerate. Start: 04-18-2024 End: 04-18-2024 10 mg, INTRAVENOUS, ONCE, 1 dose, On Sun04/18/24 at 1100, Refrigerate. fosaprepitant 150 mg injecti on (3 sources) Start: 06-20-2024 End: 06-20-2024 150 mg, INTRAVENOUS, Adminis ter over 30 Minutes, ONCE, 1 dose, On Sun06/20/24 at 1100, Approx Total Volume: 115 mL Refrigerate Start: 06-06-2024 End: 06-06-2024 150 mg, INTRAVENOUS, Adminis ter over 30 Minutes, ONCE, 1 dose, On Sun06/06/24 at 1030, Approx Total Volume: 115 mL Refrigerate Start: 05-30-2024 End: 05-30-2024 150 mg, INTRAVENOUS, Adminis ter over 30 Minutes, ONCE, 1 dose, On Sun05/30/24 at 1100, Approximate Total Volume = 280 mL Refrigerate fosaprepitant 150 mg in NaCl 0.9% 250 mL (EMEND) (4 sources) Start: 05-16-2024 End: 05-16-2024 150 mg, INTRAVENOUS, Adminis ter over 30 Minutes, ONCE, 1 dose, On Sun05/16/24 at 1030, Approximate Total Volume = 280 mL Refrigerate Start: 05-09-2024 End: 05-09-2024 150 mg, INTRAVENOUS, Adminis ter over 30 Minutes, ONCE, 1 dose, On Sun05/09/24 at 1030, Approximate Total Volume = 280 mL Refrigerate Start: 04-25-2024 End: 04-25-2024 150 mg, INTRAVENOUS, Adminis ter over 30 Minutes, ONCE, 1 dose, On Sun04/25/24 at 1100, Approximate Total Volume = 280 mL Refrigerate Start: 04-18-2024 End: 04-18-2024 150 mg, INTRAVENOUS, Adminis ter over 30 Minutes, ONCE, 1 dose, On Sun04/18/24 at 1100, Approximate Total Volume = 280 mL Refrigerate gemcitabine 1,080 mg in NaCl 0.9% 303.404 mL (GEMZAR) (1 source) Start: 06-20-2024 End: 06-20-2024 1,080 mg (800 mg/m2 1.35 m2 Treatment Plan BSA from Recorded weight), INTRAVENOUS, Administer over 30 Minutes, ONCE, 1 dose, On Sun06/20/24 at 1230, EXP: 06/21/2024 1705 RT Hazardous Chemotherapy Drug: Use appropriate PPE. Antineoplastic Irritant. gemcitabine 1,136 mg in NaCl 0.9% 304.8768 mL (GEMZAR) (6 sources) Start: 06-06-2024 End: 06-06-2024 1,136 mg (800 mg/m2 1.42 m2 Treatment Plan BSA from Recorded weight), INTRAVENOUS, Administer over 30 Minutes, ONCE, 1 dose, On Sun06/06/24 at 1200, EXP: 0200 06/08/24 Hazardous Chemotherapy Drug: Use appropriate PPE. Antineoplastic Irritant. Start: 05-30-2024 End: 05-30-2024 1,136 mg (800 mg/m2 1.42 m2 Treatment Plan BSA from Recorded weight), INTRAVENOUS, Administer over 30 Minutes, ONCE, 1 dose, On Sun05/30/24 at 1230, EXP: 05/31/2024 1650 RT Hazardous Chemotherapy Drug: Use appropriate PPE. Antineoplastic Irritant. Start: 05-16-2024 End: 05-16-2024 1,136 mg (800 mg/m2 1.42 m2 Treatment Plan BSA from Recorded weight), INTRAVENOUS, Administer over 30 Minutes, ONCE, 1 dose, On Sun05/16/24 at 1200, EXP: 05/17/2024 1630 RT Hazardous Chemotherapy Drug: Use appropriate PPE. Antineoplastic Irritant. Start: 05-09-2024 End: 05-09-2024 1,136 mg (800 mg/m2 1.42 m2 Treatment Plan BSA from Recorded weight), INTRAVENOUS, Administer over 30 Minutes, ONCE, 1 dose, On Sun05/09/24 at 1200, EXP: 05/10/2024 1630 RT Hazardous Chemotherapy Drug: Use appropriate PPE. Antineoplastic Irritant. Start: 04-25-2024 End: 04-25-2024 1,136 mg (800 mg/m2 1.42 m2 Treatment Plan BSA from Recorded weight), INTRAVENOUS, Administer over 30 Minutes, ONCE, 1 dose, On Sun04/25/24 at 1030, EXP: 04/26/2024 1545 RT Hazardous Chemotherapy Drug: Use appropriate PPE. Antineoplastic Irritant. Start: 04-18-2024 End: 04-18-2024 1,136 mg (800 mg/m2 1.42 m2 Treatment Plan BSA from Recorded weight), INTRAVENOUS, Administer over 30 Minutes, ONCE, 1 dose, On Sun04/18/24 at 1230, EXP: 04/19/2024 1720 RT Hazardous Chemotherapy Drug: Use appropriate PPE. Antineoplastic Irritant. levoFLOXacin 500 mg oral tablet (4 sources) Quinolone Antimicrobial Start: 07-16-2024 End: 07-16-2024 take 1 tablet by mouth once daily levoFLOXacin (Levaquin) 500 MG tablet Indications: COPD exacerbation (CMS/HCC) Take 1 tablet (500 mg) by mouth Daily for 5 days 5 tablet 07/16/2024 07/16/2024 Discontinued (Other) Start: 02-29-2024 End: 03-07-2024 take 1 tablet by mouth once daily Levaquin 500 mg Tab 500 mg = 1 tab(s), Oral, Daily, X 7 day(s), # 7 tab(s), Refills(s) 0, Pharmacy: [id number], 150, cm, 02/29/24 9:07:00 EDT, Height/Length Dosing, 56, kg, 02/29/24 9:07:00 EDT, Weight Dosing Start Date: 02/29/24 Stop Date: 03/07/24 Status: Ordered 50 ml magnesium sulfate 40 mg/ml injection (2 sources) Start: 05-30-2024 End: 05-30-2024 2 g, INTRAVENOUS, at 25-50 m L/hr, Administer over 1-2 Hours, ONCE, 1 dose, On Sun05/30/24 at 1100, Magnesium Sulfate IV bolus will be infused at a rate of 1 gram/hr. The following care areas may administer a magnesium sulfate bolus at a rate of 2 grams/hr if necessary: 1) ICUs/PACU/ED 2) Adult Hematology/Oncology 3) Labor and Delivery 4) Cardiac Step Down 5) Headache Clinic The following care areas may administer a magnesium sulfate bolus at a rate of GREATER than 2 grams/hr if necessary: 1) Adult and Pediatric Asthma Exacerbations 2) [place] 3) Pediatric BMT and Hematology/Oncology 4) Eclampsia or Preeclampsia Start: 05-09-2024 End: 05-09-2024 2 g, INTRAVENOUS, at 25-50 m L/hr, Administer over 1-2 Hours, ONCE, 1 dose, On Sun05/09/24 at 1100, Magnesium Sulfate IV bolus will be infused at a rate of 1 gram/hr. The following care areas may administer a magnesium sulfate bolus at a rate of 2 grams/hr if necessary: 1) ICUs/PACU/ED 2) Adult Hematology/Oncology 3) Labor and Delivery 4) Cardiac Step Down 5) Headache Clinic The following care areas may administer a magnesium sulfate bolus at a rate of GREATER than 2 grams/hr if necessary: 1) Adult and Pediatric Asthma Exacerbations 2) [place] 3) Pediatric BMT and Hematology/Oncology 4) Eclampsia or Preeclampsia magnesium sulfate 4 g in NaC l 0.9% 100 mL (1 source) Start: 05-16-2024 End: 05-16-2024 4 g, INTRAVENOUS, at 50 mL/h r, Administer over 2 Hours, ONCE, 1 dose, On Sun05/16/24 at 1200 NaCl 0.9% 500 mL (2 sources) Start: 06-20-2024 End: 06-20-2024 INTRAVENOUS, at 999 mL/hr, Administer over 0.5 Hours, ONCE, 1 dose, On Sun06/20/24 at 1100, After chemotherapy Start: 06-20-2024 End: 06-20-2024 INTRAVENOUS, at 999 mL/hr, A dminister over 0.5 Hours, ONCE, 1 dose, On Sun06/20/24 at 1100, Before chemotherapy 5 ml palonosetron 0.05 mg/ml injection (6 sources) Serotonin-3 Receptor Antagonist Start: 06-20-2024 End: 06-20-2024 0.25 mg, INTRAVENOUS, ONCE, 1 dose, On Sun06/20/24 at 1100, Flush IV line with NS prior to and following administration. Start: 06-06-2024 End: 06-06-2024 0.25 mg, INTRAVENOUS, ONCE, 1 dose, On Sun06/06/24 at 1030, Flush IV line with NS prior to and following administration. Start: 05-30-2024 End: 05-30-2024 0.25 mg, INTRAVENOUS, ONCE, 1 dose, On Sun05/30/24 at 1100, Flush IV line with NS prior to and following administration. Start: 05-16-2024 End: 05-16-2024 0.25 mg, INTRAVENOUS, ONCE, 1 dose, On Sun05/16/24 at 1030, Flush IV line with NS prior to and following administration. Start: 05-09-2024 End: 05-09-2024 0.25 mg, INTRAVENOUS, ONCE, 1 dose, On Sun05/09/24 at 1030, Flush IV line with NS prior to and following administration. Start: 04-18-2024 End: 04-18-2024 0.25 mg, INTRAVENOUS, ONCE, 1 dose, On Sun04/18/24 at 1100, Flush IV line with NS prior to and following administration. predniSONE 20 mg oral tablet (11 sources) Start: 07-16-2024 End: 07-16-2024 take 2 tablets by mouth once daily predniSONE (Deltasone) 20 MG tablet Indications: COPD exacerbation (CMS/HCC) Take 2 tablets (40 mg) by mouth Daily for 5 days 10 tablet 07/16/2024 07/16/2024 Discontinued (Other) Start: 01-17-2024 predniSONE 5 m g Tab 5 mg = 1 tab(s), Daily Start Date: 01/17/24 Status: Ordered Start: 12-08-2023 End: 07-01-2024 take 1 tablet by mouth once daily at mealtime predniSONE (Deltasone) 5 MG tablet Take 5 mg by mouth Daily Take with food. 12/08/2023 07/01/2024 Discontinued (Med list cleanup) prochlorperazine 10 mg oral tablet (2 sources) Phenothiazine Start: 04-08-2024 End: 04-08-2024 take 1 tablet by mouth every six hours as needed prochlorperazine (COMPAZINE) 10 mg tablet Take 1 tablet by mouth every 6 hours as needed. 100 tablet 1 04/08/2024 04/08/2024 Discontinued Problems Active Problems Problem Classification Problem Date Documented Date Episodic/Chronic Anxiety disorders (6 sources) Anxiety 01-17-2024 Chronic Appendicitis and other appendiceal conditions (6 sources) Disorder of appendix 01-17-2024 Episodic Cancer of bladder (20 sources) Malignant tumor of urinary bladder; 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: [Malignant neoplasm of bladder, unspecified] Onset: 02-01-2024 Chronic Cataract (6 sources) Cataract 01-17-2024 Chronic Chronic obstructive pulmonary disease and bronchiectasis (20 sources) Centriacinar emphysema; 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: [Other emphysema] Onset: 08-02-2023 08-02-2023 Chronic Disorders of lipid metabolism (20 sources) Mixed hyperlipidemia; 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: [Mixed hyperlipidemia] Onset: 08-02-2023 08-02-2023 Chronic Esophageal disorders (11 sources) Gastroesophageal reflux disease without esophagitis; 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: [Gastro-esophageal reflux disease without esophagitis] Onset: 08-02-2023 08-02-2023 Chronic Essential hypertension (20 sources) Essential (primary) hypertension; 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: [Hypertensive disorder] Onset: 04-20-2022 Chronic Genitourinary symptoms and ill-defined conditions (14 sources) Blood in urine; 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: [Gross hematuria] Onset: 01-17-2024 Episodic Maintenance chemotherapy; radiotherapy (2 sources) Patient encounter status; 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: [Encounter for antineoplastic chemotherapy] Onset: 05-09-2024 05-08-2024 Chronic Malaise and fatigue (2 sources) Fatigue due to chemotherapy; 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: [Other fatigue] 05-09-2024 Episodic Miscellaneous mental health disorders (7 sources) Psychophysiologic insomnia; 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: [Psychophysiologic insomnia] Onset: 11-14-2023 11-14-2023 Chronic Mood disorders (18 sources) Moderate major depression, single episode; 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: [Major depressive disorder, single episode, moderate] Onset: 08-02-2023 08-02-2023 Chronic Nausea and vomiting (1 source) Nausea; 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: [Nausea] 05-09-2024 Episodic Nutritional deficiencies (20 sources) Deficiency of macronutrients; 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: [Unspecified severe protein-calorie malnutrition] Onset: 04-18-2024 04-18-2024 Chronic Osteoporosis (6 sources) Osteoporosis 01-17-2024 Chronic Other diseases of bladder and urethra (2 sources) Disorder of bladder; 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: [Other specified disorders of bladder] Onset: 01-17-2024 Chronic Other diseases of bladder and urethra (13 sources) Mass of urinary bladder; 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: [Other specified disorders of bladder] Onset: 01-31-2024 01-17-2024 Chronic Other hereditary and degenerative nervous system conditions (20 sources) Restless legs; 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: [Restless legs syndrome] Onset: 08-02-2023 08-02-2023 Chronic Other lower respiratory disease (6 sources) Dyspnea; 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: [Other respiratory abnormalities] Onset: 11-28-2023 11-28-2023 Episodic Other lower respiratory disease (3 sources) Shortness of breath; 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: [Shortness of breath] Onset: 03-09-2023 Episodic Other lower respiratory disease (2 sources) Dyspnea, unspecified; 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: [Dyspnea, unspecified] Onset: 03-09-2023 Episodic Other lower respiratory disease (12 sources) Dyspnea on exertion; 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: [Other forms of dyspnea] Onset: 08-02-2023 08-02-2023 Episodic Other nervous system disorders (1 source) Neuropathy caused by chemical substance; 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: [Drug-induced polyneuropathy] 05-09-2024 Chronic Other non-traumatic joint disorders (1 source) Hip pain; 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: [Pain in right hip] 07-15-2024 Episodic Other nutritional; endocrine; and metabolic disorders (13 sources) Olrby-6-jbhqbpnkvsr deficiency; 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: [Nylna-3-idfaprrofgy deficiency] Onset: 08-30-2023 11-28-2023 Chronic Other nutritional; endocrine; and metabolic disorders (2 sources) Vsmod-7-epuityqwnpr deficiency; 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: [Slzbp-7-cefephmfiqu deficiency (Multi)] Onset: 08-30-2023 Chronic Other nutritional; endocrine; and metabolic disorders (6 sources) Overweight in adulthood with body mass index of 25 or more but less than 30; 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: [Overweight] Onset: 11-28-2023 11-28-2023 Episodic Other nutritional; endocrine; and metabolic disorders (2 sources) Body mass index (BMI) 25.0-25.9, adult; 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: [Body mass index (BMI) 25.0-25.9, adult] Onset: 11-28-2023 Episodic Other upper respiratory infections (2 sources) Upper respiratory infection; 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: [Acute upper respiratory infection, unspecified] Onset: 07-16-2024 07-16-2024 Episodic Residual codes; unclassified (7 sources) Tobacco user; 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: [Tobacco use] 03-31-2024 Episodic Unclassified (3 sources) COUGH, UNSPECIFIED; 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: [COUGH, UNSPECIFIED] Onset: 10-19-2022 Past or Other Problems Problem Classification Problem Date Documented Da te Episodic/Chronic Fluid and electrolyte disorders (10 sources) Hypokalemia; 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: [Hypokalemia] Onset: 08-02-2023 08-02-2023 Episodic Mood disorders (10 sources) Mood disorders Onset: 08-02-2023 08-02-2023 Other aftercare (7 sources) Long-term current use of systemic steroid; 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: [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] Onset: 11-14-2023 11-14-2023 Episodic Other connective tissue disease (13 sources) Disorder of abdominal wall; 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: [Ventral hernia without obstruction or gangrene] Onset: 01-31-2024 01-17-2024 Episodic Screening and history of mental health and substance abuse codes (20 sources) Personal history of nicotine dependence; 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: [Ex-smoker] Onset: 08-16-2022 Episodic Unclassified (1 source) COUGH, UNSPECIFIED; 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: [COUGH, UNSPECIFIED] Onset: 10-17-2022 Unclassified (1 source) Onset: 11-28-2023 11-28-2023 Urinary tract infections (19 sources) Urinary tract infectious disease; 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: [Urinary tract infection, site not specified] Onset: 12-31-2023 Episodic Results Test Name Value Interpretation Reference Range Facility CREATININE BLDOrdered By: Am y White on 07-11-2024 Creatinine [Mass/Vol] 0.76 mg/dL 0.58 - 0.96 mg/dL [facility] GFR/1.73 sq M.predicted among non-blacks MDRD (S/P/Bld) [Vol rate/Area] 84 mL/min/{1.73_m2} - PINF [facility] Comment on above: Estimated Glomerular Filtration Rate (eGFR) is calculated using the 2020 CKD-EPI creatinine equation. This equation utilizes serum creatinine, sex, and age as parameters. The creatinine assay has traceable calibration to isotope dilution-mass spectrometry. Refer to KDIGO guidelines for clinical interpretation. In patients with unstable renal function, e.g. those with acute kidney injury, the eGFR may not accurately reflect actual GFR. Interpretation and review of laboratory results Normal [facility] CREATININE BLDon 07-11-2024 Creatinine [Mass/Vol] 0.76 mg/dL Normal 0.58-0.96 [facility] Comment on above: Order Comment: Speci men Type: BLOOD SPECIMENOrdering Facility: [facility] Address: [address] [place] [address] Performed By: #### C RET1 ####[facility] LABCLIA [id number] [place] [address] Creatinine and Glomerular filtration rate.predicted panel (S/P/Bld) 84 mL/min/1.73m??? Normal >=60 [facility] Comment on above: Order Comment: Speci men Type: BLOOD SPECIMENOrdering Facility: [facility] Address: [address] [place] [address] Result Comment: Tosin mated Glomerular Filtration Rate (eGFR) is calculated using the 2020 CKD-EPI creatinine equation. This equation utilizes serum creatinine, sex, and age as parameters. The creatinine assay has traceable calibration to isotope dilution-mass spectrometry. Refer to KDIGO guidelines for clinical interpretation. In patients with unstable renal function, e.g. those with acute kidney injury, the eGFR may not accurately reflect actual GFR. Performed By: #### C RET1 ####[facility] LABCLIA [id number] [place] [address] CT [address] CHEST W IVCON * * *Final Report* * * DATE OF EXAM: Jul 11 2024 10:41AM [facility] 0539 - CT CHEST W IVCON / PROCEDURE REASON: Malignant neoplasm of urinary bladder, unspecified site (HCC) * * * * Physician Interpretation * * * * RESULT: EXAMINATION: CHEST CT WITH CONTRAST CLINICAL HISTORY: Malignant neoplasm of urinary bladder, unspecified site Technique: Spiral CT acquisition of the chest from the thoracic inlet to the upper abdomen following IV contrast. MQ: CTCW_6 Contrast: 80 mL Omnipaque [address] Radiation dose: Integrated Dose-length product (DLP) for this visit = 1004 mGy*cm CT Dose Reduction Employed: Automated exposure control (AEC) Comparison: Outside institution chest CT dated 03/28/2024 RESULT: Limitations: None. Lines, tubes, and devices: None. Lung parenchyma and airways: A 7 mm nodular subpleural opacity at the lateral aspect of the left lower lobe on series 3 image 171 and series 5 image 95 is new from the previous CT, it may represent an area of atelectasis. Additional smaller pulmonary nodules are noted in both lower lobes, these are not clearly seen on the previous CT performed in March 2024, although this may be due to differences in slice thickness between exams. For example a 2 mm nodule left lower lobe nodule on series 3 image 140, a 3 mm left lower lobe nodule on series 3 image 159, and a 3 mm right lower lobe nodule on series 3 image 142. Moderate upper lung predominant emphysema is unchanged. Right greater than left biapical pleural-parenchymal scarring is noted. Subocclusive mucoid debris is noted within the right mainstem bronchus and bronchus intermedius, as well as within subsegmental bronchi in the right lower lobe. The remainder of the central airways are patent. Pleural space: No pleural effusion. No pleural thickening. Lower neck, lymph nodes, and mediastinum: The imaged thyroid gland is normal. No lymphadenopathy in the supraclavicular, axillary, mediastinal, or hilar regions. Heart, pericardium, and thoracic vessels: The thoracic aorta and main pulmonary artery are normal in caliber. The cardiac chambers are normal in size. Moderate coronary artery atherosclerotic calcifications are noted, although the study is not optimized for coronary assessment. No pericardial effusion or thickening. Bones and soft tissues: No destructive skeletal lesion is present. Mild multilevel thoracic spine degenerative disc disease is noted. Upper abdomen: Please see the separate report for the concurrently obtained CT urogram. Localizer images: No additional findings. IMPRESSION: 1. A new 7 mm nodular subpleural opacity in the left lower lobe is favored to represent an area of atelectasis. There are a few smaller 2 to 3 mm pulmonary nodules at the lung bases which were not seen on the previous CT, perhaps due to differences in slice thickness between exams. These can be reassessed on subsequent restaging CTs. 2. No additional CT evidence of metastatic disease in the chest. Transcribe Date/Time: Jul 11 2024 12:13P Dictated by: KAUSHIK KERR MD This examination was interpreted and the report reviewed and electronically signed by: KAUSHIK KERR MD on Jul 11 2024 1:04PM EST Thank you for allowing us to participate in the care of your patient. Should there be any questions regarding this interpretation, please call [phone]. If you are unable to reach us at the number above, please feel free to contact [facility] eRadiology at [phone]. [id number] N Normal [facility] CT Chest W contrast [place] IMPRESSION: 1. A new 7 mm nodular subpleural opacity in the left lower lobe is favored to represent an area of atelectasis. There are a few smaller 2 to 3 mm pulmonary nodules at the lung bases which were not seen on the previous CT, perhaps due to differences in slice thickness between exams. These can be reassessed on subsequent restaging CTs. 2. No additional CT evidence of metastatic disease in the chest. Transcribe Date/Time: Jul 11 2024 12:13P Dictated by: KAUSHIK KERR MD This examination was interpreted and the report reviewed and electronically signed by: KAUSHIK KERR MD on Jul 11 2024 1:04PM EST Thank you for allowing us to participate in the care of your patient. Should there be any questions regarding this interpretation, please call [phone]. If you are unable to reach us at the number above, please feel free to contact [facility]iology at [phone]. DIVISION OF RADIOLOGY * * *Final Report* * * DATE OF EXAM: Jul 11 2024 10:41AM [facility] 0539 - CT CHEST W IVCON / PROCEDURE REASON: Malignant neoplasm of urinary bladder, unspecified site (HCC) * * * * Physician Interpretation * * * * RESULT: EXAMINATION: CHEST CT WITH CONTRAST CLINICAL HISTORY: Malignant neoplasm of urinary bladder, unspecified site Technique: Spiral CT acquisition of the chest from the thoracic inlet to the upper abdomen following IV contrast. MQ: CTCW_6 Contrast: 80 mL Omnipaque [address] Radiation dose: Integrated Dose-length product (DLP) for this visit = 1004 mGy*cm CT Dose Reduction Employed: Automated exposure control (AEC) Comparison: Outside institution chest CT dated 03/28/2024 RESULT: Limitations: None. Lines, tubes, and devices: None. Lung parenchyma and airways: A 7 mm nodular subpleural opacity at the lateral aspect of the left lower lobe on series 3 image 171 and series 5 image 95 is new from the previous CT, it may represent an area of atelectasis. Additional smaller pulmonary nodules are noted in both lower lobes, these are not clearly seen on the previous CT performed in March 2024, although this may be due to differences in slice thickness between exams. For example a 2 mm nodule left lower lobe nodule on series 3 image 140, a 3 mm left lower lobe nodule on series 3 image 159, and a 3 mm right lower lobe nodule on series 3 image 142. Moderate upper lung predominant emphysema is unchanged. Right greater than left biapical pleural-parenchymal scarring is noted. Subocclusive mucoid debris is noted within the right mainstem bronchus and bronchus intermedius, as well as within subsegmental bronchi in the right lower lobe. The remainder of the central airways are patent. Pleural space: No pleural effusion. No pleural thickening. Lower neck, lymph nodes, and mediastinum: The imaged thyroid gland is normal. No lymphadenopathy in the supraclavicular, axillary, mediastinal, or hilar regions. Heart, pericardium, and thoracic vessels: The thoracic aorta and main pulmonary artery are normal in caliber. The cardiac chambers are normal in size. Moderate coronary artery atherosclerotic calcifications are noted, although the study is not optimized for coronary assessment. No pericardial effusion or thickening. Bones and soft tissues: No destructive skeletal lesion is present. Mild multilevel thoracic spine degenerative disc disease is noted. Upper abdomen: Please see the separate report for the concurrently obtained CT urogram. Localizer images: No additional findings. DIVISION OF RADIOLOGY [facility] * * *Final Report* * * DATE OF EXAM: Jul 11 2024 10:41AM [facility] 0539 - CT CHEST W IVCON / PROCEDURE REASON: Malignant neoplasm of urinary bladder, unspecified site (HCC) * * * * Physician Interpretation * * * * RESULT: EXAMINATION: CHEST CT WITH CONTRAST CLINICAL HISTORY: Malignant neoplasm of urinary bladder, unspecified site Technique: Spiral CT acquisition of the chest from the thoracic inlet to the upper abdomen following IV contrast. MQ: CTCW_6 Contrast: 80 mL Omnipaque [address] Radiation dose: Integrated Dose-length product (DLP) for this visit = 1004 mGy*cm CT Dose Reduction Employed: Automated exposure control (AEC) Comparison: Outside institution chest CT dated 03/28/2024 RESULT: Limitations: None. Lines, tubes, and devices: None. Lung parenchyma and airways: A 7 mm nodular subpleural opacity at the lateral aspect of the left lower lobe on series 3 image 171 and series 5 image 95 is new from the previous CT, it may represent an area of atelectasis. Additional smaller pulmonary nodules are noted in both lower lobes, these are not clearly seen on the previous CT performed in March 2024, although this may be due to differences in slice thickness between exams. For example a 2 mm nodule left lower lobe nodule on series 3 image 140, a 3 mm left lower lobe nodule on series 3 image 159, and a 3 mm right lower lobe nodule on series 3 image 142. Moderate upper lung predominant emphysema is unchanged. Right greater than left biapical pleural-parenchymal scarring is noted. Subocclusive mucoid debris is noted within the right mainstem bronchus and bronchus intermedius, as well as within subsegmental bronchi in the right lower lobe. The remainder of the central airways are patent. Pleural space: No pleural effusion. No pleural thickening. Lower neck, lymph nodes, and mediastinum: The imaged thyroid gland is normal. No lymphadenopathy in the supraclavicular, axillary, mediastinal, or hilar regions. Heart, pericardium, and thoracic vessels: The thoracic aorta and main pulmonary artery are normal in caliber. The cardiac chambers are normal in size. Moderate coronary artery atherosclerotic calcifications are noted, although the study is not optimized for coronary assessment. No pericardial effusion or thickening. Bones and soft tissues: No destructive skeletal lesion is present. Mild multilevel thoracic spine degenerative disc disease is noted. Upper abdomen: Please see the separate report for the concurrently obtained CT urogram. Localizer images: No additional findings. IMPRESSION IMPRESSION: 1. A new 7 mm nodular subpleural opacity in the left lower lobe is favored to represent an area of atelectasis. There are a few smaller 2 to 3 mm pulmonary nodules at the lung bases which were not seen on the previous CT, perhaps due to differences in slice thickness between exams. These can be reassessed on subsequent restaging CTs. 2. No additional CT evidence of metastatic disease in the chest. Transcribe Date/Time: Jul 11 2024 12:13P Dictated by: KAUSHIK KERR MD This examination was interpreted and the report reviewed and electronically signed by: KAUSHIK KERR MD on Jul 11 2024 1:04PM EST Thank you for allowing us to participate in the care of your patient. Should there be any questions regarding this interpretation, please call [phone]. If you are unable to reach us at the number above, please feel free to contact [facility] at [phone]. [facility] CT Kidney WO and W contrast [place] 07-11-2024 IMPRESSION: 1. Lobulated enhancing wall thickening noted along the left bladder wall, compatible with the known primary bladder neoplasm. This overlies the left UVJ, with circumferential urothelial thickening noted involving the distal left ureter. This could be assessed with ureteroscopy per urology discretion, to exclude neoplastic involvement of the distal left ureter. 2. No CT evidence of metastatic disease in the abdomen/pelvis. Transcribe Date/Time: Jul 11 2024 12:13P Dictated by: KAUSHIK KERR MD This examination was interpreted and the report reviewed and electronically signed by: KAUSHIK KERR MD on Jul 11 2024 1:16PM EST Thank you for allowing us to participate in the care of your patient. Should there be any questions regarding this interpretation, please call [phone]. If you are unable to reach us at the number above, please feel free to contact [facility] at [phone]. DIVISION OF RADIOLOGY * * *Final Report* * * DATE OF EXAM: Jul 11 2024 10:41AM [facility] 0560 - CT UROGRAM WO/W IVCON / PROCEDURE REASON: Malignant neoplasm of urinary bladder, unspecified site (HCC) * * * * Physician Interpretation * * * * RESULT: EXAMINATION: CT ABDOMEN AND PELVIS WITHOUT AND WITH IV CONTRAST, INCLUDING EXCRETORY PHASE IMAGING (CT UROGRAM) 3D RECONSTRUCTIONS CLINICAL HISTORY: Malignant neoplasm of urinary bladder, unspecified site TECHNIQUE: CT urogram protocol including unenhanced, renal parenchymal phase and excretory phase renal imaging was obtained following IV contrast. Normal saline was also administered IV. No oral contrast was given. 3D image post-processing was performed and archived at the request of the referring physician, on the CT scanner workstation without concurrent physician supervision. MQ: CTU_2 Contrast: IV: 80 ml of Omnipaque 350 IV Saline: 80 ml of 0.9% NACL Solution Oral Contrast: None CT Radiation dose: Integrated dose-length product (DLP) for this visit = 1004 mGy*cm. CT Dose Reduction Employed: Automated exposure control (AEC) COMPARISON: Multiple previous outside CTs of the abdomen/pelvis, the most recent dated 01/30/2024 RESULT: Kidneys and urinary tract: Right: There are no renal calculi or masses. The opacified calices, renal pelvis and ureter are normal without dilation, filling defect, or stricture. Note however that assessment of multiple segments of the ureter is limited due to nonopacification with excreted contrast medium, perhaps due to ureteral peristalsis. Left: There are no renal calculi or masses. There is circumferential urothelial thickening involving the distal left ureter a few centimeters proximal to the UVJ, for example on series 7 image 342. The opacified calyces, renal pelvis and ureter are otherwise unremarkable without dilation, filling defect or stricture. Bladder: Lobulated appearing enhancing wall thickening is noted along the left lateral bladder wall, the largest focal area of lobular thickening measures 2.3 x 2.1 cm on series 4 image 95. The appearance is compatible with the known primary bladder neoplasm. This overlies the left UVJ. Abdomen and Pelvis: Liver: No mass. Biliary: No bile duct dilation. Unremarkable gallbladder. Spleen: No mass. No splenomegaly. Pancreas: No mass or duct dilation. Adrenals: No mass. GI tract: No dilation or wall thickening. Colonic diverticulosis is noted, there are no CT findings of diverticulitis. Lymph nodes: No abdominal or pelvic lymphadenopathy. Mesentery/Peritoneum: No ascites or mass. Retroperitoneum: No mass. Vasculature: - Abdominal aorta and iliac arteries: Moderate calcified atherosclerotic disease, no aneurysm - Celiac and SMA: Atherosclerotic calcifications at the origins. - Portal venous system (SMV, splenic vein, portal vein and branches): Patent. - Hepatic veins: Patent. Pelvis: No ascites or fluid collection. Bones and Soft Tissues: Postsurgical changes from left inguinal hernia repair. No destructive skeletal lesion is present. Lower thorax: Please see the separate report for the concurrently obtained CT of the chest Localizer images: No additional findings. DIVISION OF RADIOLOGY Provider, [facility] - 07/11/2024 * * *Final Report* * * DATE OF EXAM: Jul 11 2024 10:41AM [facility] 0560 - CT UROGRAM WO/W IVCON / PROCEDURE REASON: Malignant neoplasm of urinary bladder, unspecified site (HCC) * * * * Physician Interpretation * * * * RESULT: EXAMINATION: CT ABDOMEN AND PELVIS WITHOUT AND WITH IV CONTRAST, INCLUDING EXCRETORY PHASE IMAGING (CT UROGRAM) 3D RECONSTRUCTIONS CLINICAL HISTORY: Malignant neoplasm of urinary bladder, unspecified site TECHNIQUE: CT urogram protocol including unenhanced, renal parenchymal phase and excretory phase renal imaging was obtained following IV contrast. Normal saline was also administered IV. No oral contrast was given. 3D image post-processing was performed and archived at the request of the referring physician, on the CT scanner workstation without concurrent physician supervision. MQ: CTU_2 Contrast: IV: 80 ml of Omnipaque 350 IV Saline: 80 ml of 0.9% NACL Solution Oral Contrast: None CT Radiation dose: Integrated dose-length product (DLP) for this visit = 1004 mGy*cm. CT Dose Reduction Employed: Automated exposure control (AEC) COMPARISON: Multiple previous outside CTs of the abdomen/pelvis, the most recent dated 01/30/2024 RESULT: Kidneys and urinary tract: Right: There are no renal calculi or masses. The opacified calices, renal pelvis and ureter are normal without dilation, filling defect, or stricture. Note however that assessment of multiple segments of the ureter is limited due to nonopacification with excreted contrast medium, perhaps due to ureteral peristalsis. Left: There are no renal calculi or masses. There is circumferential urothelial thickening involving the distal left ureter a few centimeters proximal to the UVJ, for example on series 7 image 342. The opacified calyces, renal pelvis and ureter are otherwise unremarkable without dilation, filling defect or stricture. Bladder: Lobulated appearing enhancing wall thickening is noted along the left lateral bladder wall, the largest focal area of lobular thickening measures 2.3 x 2.1 cm on series 4 image 95. The appearance is compatible with the known primary bladder neoplasm. This overlies the left UVJ. Abdomen and Pelvis: Liver: No mass. Biliary: No bile duct dilation. Unremarkable gallbladder. Spleen: No mass. No splenomegaly. Pancreas: No mass or duct dilation. Adrenals: No mass. GI tract: No dilation or wall thickening. Colonic diverticulosis is noted, there are no CT findings of diverticulitis. Lymph nodes: No abdominal or pelvic lymphadenopathy. Mesentery/Peritoneum: No ascites or mass. Retroperitoneum: No mass. Vasculature: - Abdominal aorta and iliac arteries: Moderate calcified atherosclerotic disease, no aneurysm - Celiac and SMA: Atherosclerotic calcifications at the origins. - Portal venous system (SMV, splenic vein, portal vein and branches): Patent. - Hepatic veins: Patent. Pelvis: No ascites or fluid collection. Bones and Soft Tissues: Postsurgical changes from left inguinal hernia repair. No destructive skeletal lesion is present. Lower thorax: Please see the separate report for the concurrently obtained CT of the chest Localizer images: No additional findings. IMPRESSION IMPRESSION: 1. Lobulated enhancing wall thickening noted along the left bladder wall, compatible with the known primary bladder neoplasm. This overlies the left UVJ, with circumferential urothelial thickening noted involving the distal left ureter. This could be assessed with ureteroscopy per urology discretion, to exclude neoplastic involvement of the distal left ureter. 2. No CT evidence of metastatic disease in the abdomen/pelvis. Transcribe Date/Time: Jul 11 2024 12:13P Dictated by: KAUSHIK KERR MD This examination was interpreted and the report reviewed and electronically signed by: KAUSHIK KERR MD on Jul 11 2024 1:16PM EST Thank you for allowing us to participate in the care of your patient. Should there be any questions regarding this interpretation, please call [phone]. If you are unable to reach us at the number above, please feel free to contact [facility] at [phone]. [facility] CT Kidney WO and W contrast IVOrdered By: [facility] Provider on 07-11-20[address] [facility] [address] UROGRAM WO/W IVCONon 11-2 CT UROGRAM WO/W IVCON * * *Final Report* * * DATE OF EXAM: Jul 11 2024 10:41AM [facility] 0560 - CT UROGRAM WO/W IVCON / PROCEDURE REASON: Malignant neoplasm of urinary bladder, unspecified site (HCC) * * * * Physician Interpretation * * * * RESULT: EXAMINATION: CT ABDOMEN AND PELVIS WITHOUT AND WITH IV CONTRAST, INCLUDING EXCRETORY PHASE IMAGING (CT UROGRAM) 3D RECONSTRUCTIONS CLINICAL HISTORY: Malignant neoplasm of urinary bladder, unspecified site TECHNIQUE: CT urogram protocol including unenhanced, renal parenchymal phase and excretory phase renal imaging was obtained following IV contrast. Normal saline was also administered IV. No oral contrast was given. 3D image post-processing was performed and archived at the request of the referring physician, on the CT scanner workstation without concurrent physician supervision. MQ: CTU_2 Contrast: IV: 80 ml of Omnipaque 350 IV Saline: 80 ml of 0.9% NACL Solution Oral Contrast: None CT Radiation dose: Integrated dose-length product (DLP) for this visit = 1004 mGy*cm. CT Dose Reduction Employed: Automated exposure control (AEC) COMPARISON: Multiple previous outside CTs of the abdomen/pelvis, the most recent dated 01/30/2024 RESULT: Kidneys and urinary tract: Right: There are no renal calculi or masses. The opacified calices, renal pelvis and ureter are normal without dilation, filling defect, or stricture. Note however that assessment of multiple segments of the ureter is limited due to nonopacification with excreted contrast medium, perhaps due to ureteral peristalsis. Left: There are no renal calculi or masses. There is circumferential urothelial thickening involving the distal left ureter a few centimeters proximal to the UVJ, for example on series 7 image 342. The opacified calyces, renal pelvis and ureter are otherwise unremarkable without dilation, filling defect or stricture. Bladder: Lobulated appearing enhancing wall thickening is noted along the left lateral bladder wall, the largest focal area of lobular thickening measures 2.3 x 2.1 cm on series 4 image 95. The appearance is compatible with the known primary bladder neoplasm. This overlies the left UVJ. Abdomen and Pelvis: Liver: No mass. Biliary: No bile duct dilation. Unremarkable gallbladder. Spleen: No mass. No splenomegaly. Pancreas: No mass or duct dilation. Adrenals: No mass. GI tract: No dilation or wall thickening. Colonic diverticulosis is noted, there are no CT findings of diverticulitis. Lymph nodes: No abdominal or pelvic lymphadenopathy. Mesentery/Peritoneum: No ascites or mass. Retroperitoneum: No mass. Vasculature: - Abdominal aorta and iliac arteries: Moderate calcified atherosclerotic disease, no aneurysm - Celiac and SMA: Atherosclerotic calcifications at the origins. - Portal venous system (SMV, splenic vein, portal vein and branches): Patent. - Hepatic veins: Patent. Pelvis: No ascites or fluid collection. Bones and Soft Tissues: Postsurgical changes from left inguinal hernia repair. No destructive skeletal lesion is present. Lower thorax: Please see the separate report for the concurrently obtained CT of the chest Localizer images: No additional findings. IMPRESSION: 1. Lobulated enhancing wall thickening noted along the left bladder wall, compatible with the known primary bladder neoplasm. This overlies the left UVJ, with circumferential urothelial thickening noted involving the distal left ureter. This could be assessed with ureteroscopy per urology discretion, to exclude neoplastic involvement of the distal left ureter. 2. No CT evidence of metastatic disease in the abdomen/pelvis. Transcribe Date/Time: Jul 11 2024 12:13P Dictated by: KAUSHIK KERR MD This examination was interpreted and the report reviewed and electronically signed by: KAUSHIK KERR MD on Jul 11 2024 1:16PM EST Thank you for allowing us to participate in the care of your patient. Should there be any questions regarding this interpretation, please call [phone]. If you are unable to reach us at the number above, please feel free to contact [facility] at [phone]. [id number] N Normal [facility] No Panel Informationon 07-11 Radiology Study observation (narrative) [facility] Seth 06-23-2024 CNPN Telephone (HEMTSA) SVETLANA ADRIAN ([id number]) 1955 F Date Time Provider Department 06/23/24 MASHA KNIGHT During your visit today, we recorded the following information about you: Lori Hobbs RN 06/23/2024 7:54 AM Signed Please sign pended Cre for upcoming CT-pt on nephrotoxic chemo Thank You! Lori Hobbs RN Allergies As of Date: 06/23/2024 (No Known Allergies) Date Reviewed: 06/23/2024 Reviewed by: Masha Knight APRN.[employer]MIN[employer]RATION PROGRAM CHAIR - Fully Assessed Reason for Visit: Orders [681] Primary Visit Diagnosis:Malignant neoplasm of overlapping sites of bladder (HCC) [C67.8] Order(s):CREATININE BLD [SQCRET] Order #: [id number] FUTURE Prescriptions as of 06/23/2024 - ondansetron (ZOFRAN) 8 mg tablet Take 1 tablet by mouth every 8 hours as needed for nausea/vomiting. - ensifentrine (OHTUVAYRE) 3 mg/2.5 mL suspension for nebulization Use 3 mg via nebulizer two times a day. - zinc sulfate (ZINC-15 ORAL) Take by mouth. - meloxicam (MOBIC) 7.5 mg tablet Take 7.5 mg by mouth once daily. - metoprolol succinate ER (TOPROL XL) 100 mg Take 100 mg by mouth. - pantoprazole DR (PROTONIX) 40 mg tablet Take 40 mg by mouth once daily. - Pramipexole 0.75 mg tablet Take 0.75 mg by mouth. - guaiFENesin (MUCINEX) 600 mg 12 hr tablet Take 1,200 mg by mouth. - budesonide (PULMICORT) 0.5 mg/2 mL nebulizer solution 0.5 mg. - arformoterol (BROVANA) 15 mcg/2 mL nebulizer solution 15 mcg. - fluticasone (FLONASE) 50 mcg/actuation nasal spray 2 Sprays. - Ipratropium (ATROVENT HFA) 17 mcg/actuation inhaler Inhale 2 Puffs as instructed. - amLODIPine (NORVASC) 5 mg tablet Take 5 mg by mouth. - alendronate (FOSAMAX) 70 mg tablet Take 1 tablet by mouth one time a week. - atorvastatin (LIPITOR) 40 mg tablet Take 40 mg by mouth. - biotin 5 mg capsule Take 5 mg by mouth. - escitalopram oxalate (LEXAPRO) 20 mg tablet Take 20 mg by mouth. - gabapentin (NEURONTIN) 300 mg capsule Take 300 mg by mouth daily at bedtime. - revefenacin (YUPELRI) 175 mcg/3 mL solution for nebulization 175 mcg. - losartan (COZAAR) 100 mg tablet Take 100 mg by mouth. Problem List As Of Date 06/23/2024 Noted Resolved Malignant neoplasm of overlapping sites of blad*04/07/2024 Severe protein-calorie malnutrition (HCC) [E43] 04/18/2024 Encounter Status:Closed by MASHA KNGIHT on 06/23/24 Normal [facility] CBC W Auto Differential pane l (Bld)on 06-20-2024 Basophils (Bld) [#/Vol] 10*3/uL Normal <0.11 [facility] Comment on above: Order Comment: Speci men Type: BLOOD SPECIMENOrdering Facility: [facility] Address: [address] [place] [address] Performed By: #### 5 7021-8 ####[facility] LABCLIA [id number] [place] [address] Basophils/100 WBC (Bld) 0.4 % Normal [facility] Comment on above: Order Comment: Speci men Type: BLOOD SPECIMENOrdering Facility: [facility] Address: [address] [place] [address] Performed By: #### 5 7021-8 ####[facility] LABCLIA [id number] [place] [address] Differential cell count method Nom (Bld) Auto Normal [facility] Comment on above: Order Comment: Speci men Type: BLOOD SPECIMENOrdering Facility: [facility] Address: [address] [place] [address] Performed By: #### 5 7021-8 ####[facility] LABCLIA [id number] [place] [address] Eosinophils (Bld) [#/Vol] 0.09 10*3/uL Normal <0.46 [facility] Comment on above: Order Comment: Speci men Type: BLOOD SPECIMENOrdering Facility: [facility] Address: [address] [place] [address] Performed By: #### 5 7021-8 ####[facility] LABCLIA [id number] [place] [address] Eosinophils/100 WBC (Bld) 1.8 % Normal [facility] Comment on above: Order Comment: Speci men Type: BLOOD SPECIMENOrdering Facility: [facility] Address: [address] [place] [address] Performed By: #### 5 7021-8 ####[facility] LABCLIA [id number] [place] [address] Erythrocyte distribution width (RBC) [Ratio] 22.7 % High 11.5-15.0 [facility] Comment on above: Order Comment: Speci men Type: BLOOD SPECIMENOrdering Facility: [facility] Address: [address] [place] [address] Performed By: #### 5 7021-8 ####[facility] LABCLIA [id number] [place] [address] Hematocrit (Bld) [Volume fraction] 33.2 % Low 36.0-46.0 [facility] Comment on above: Order Comment: Speci men Type: BLOOD SPECIMENOrdering Facility: [facility] Address: [address] [place] [address] Performed By: #### 5 7021-8 ####[facility] LABCLIA [id number] [place] [address] Hemoglobin (Bld) [Mass/Vol] 11.2 g/dL Low 11.5-15.5 [facility] Comment on above: Order Comment: Speci men Type: BLOOD SPECIMENOrdering Facility: [facility] Address: [address] [place] [address] Performed By: #### 5 7021-8 ####[facility] LABCLIA [id number] [place] [address] Immature granulocytes (Bld) [#/Vol] 10*3/uL Normal <0.10 [facility] Comment on above: Order Comment: Speci men Type: BLOOD SPECIMENOrdering Facility: [facility] Address: [address] [place] [address] Performed By: #### 5 7021-8 ####[facility] LABCLIA [id number] [place] [address] Immature granulocytes/100 WBC (Bld) 0.4 % Normal [facility] Comment on above: Order Comment: Speci men Type: BLOOD SPECIMENOrdering Facility: [facility] Address: [address] [place] [address] Performed By: #### 5 7021-8 ####[facility] LABCLIA [id number] [place] [address] Lymphocytes (Bld) [#/Vol] 0.59 10*3/uL Low 1.00-4.00 [facility] Comment on above: Order Comment: Speci men Type: BLOOD SPECIMENOrdering Facility: [facility] Address: [address] [place] [address] Performed By: #### 5 7021-8 ####[facility] LABCLIA [id number] [place] [address] Lymphocytes/100 WBC (Bld) 11.8 % Normal [facility] Comment on above: Order Comment: Speci men Type: BLOOD SPECIMENOrdering Facility: [facility] Address: [address] [place] [address] Performed By: #### 5 7021-8 ####[facility] LABCLIA [id number] [place] [address] MCH (RBC) [Entitic mass] 30.4 pg Normal 26.0-34.0 [facility] Comment on above: Order Comment: Speci men Type: BLOOD SPECIMENOrdering Facility: [facility] Address: [address] [place] [address] Performed By: #### 5 7021-8 ####[facility] LABCLIA [id number] [place] [address] MCHC (RBC) [Mass/Vol] 33.7 g/dL Normal 30.5-36.0 [facility] Comment on above: Order Comment: Speci men Type: BLOOD SPECIMENOrdering Facility: [facility] Address: [address] [place] [address] Performed By: #### 5 7021-8 ####[facility] LABCLIA [id number] [place] [address] MCV (RBC) [Entitic vol] 90.2 fL Normal 80.0-100.0 [facility] Comment on above: Order Comment: Speci men Type: BLOOD SPECIMENOrdering Facility: [facility] Address: [address] [place] [address] Performed By: #### 5 7021-8 ####[facility] LABIA [id number] [place] [address] Monocytes (Bld) [#/Vol] 1.05 10*3/uL High <0.87 [facility] Comment on above: Order Comment: Speci men Type: BLOOD SPECIMENOrdering Facility: [facility] Address: [address] [place] [address] Performed By: #### 5 7021-8 ####[facility] LABCLIA [id number] [place] [address] Monocytes/100 WBC (Bld) 21.0 % Normal [facility] Comment on above: Order Comment: Speci men Type: BLOOD SPECIMENOrdering Facility: [facility] Address: [address] [place] [address] Performed By: #### 5 7021-8 ####[facility] LABCLIA [id number] [place] [address] Neutrophils (Bld) [#/Vol] 3.24 10*3/uL Normal 1.45-7.50 [facility] Comment on above: Order Comment: Speci men Type: BLOOD SPECIMENOrdering Facility: [facility] Address: [address] [place] [address] Performed By: #### 5 7021-8 ####[facility] LABCLIA [id number] [place] [address] Neutrophils/100 WBC (Bld) 64.6 % Normal [facility] Comment on above: Order Comment: Speci men Type: BLOOD SPECIMENOrdering Facility: [facility] Address: [address] [place] [address] Performed By: #### 5 7021-8 ####[facility] LABCLIA [id number] [place] [address] Nucleated RBC (Bld) [#/Vol] 10*3/uL Normal <0.01 [facility] Comment on above: Order Comment: Speci men Type: BLOOD SPECIMENOrdering Facility: [facility] Address: [address] [place] [address] Performed By: #### 5 7021-8 ####[facility] LABCLIA [id number] [place] [address] Nucleated RBC/100 WBC (Bld) [Ratio] 0.0 /100 WBC Normal [facility] Comment on above: Order Comment: Speci men Type: BLOOD SPECIMENOrdering Facility: [facility] Address: [address] [place] [address] Performed By: #### 5 7021-8 ####[facility] LABCLIA [id number] [place] [address] Platelet mean volume (Bld) [Entitic vol] 9.5 fL Normal 9.0-12.7 [facility] Comment on above: Order Comment: Speci men Type: BLOOD SPECIMENOrdering Facility: [facility] Address: [address] [place] [address] Performed By: #### 5 7021-8 ####[facility] LABCLIA [id number] [place] [address] Platelets (Bld) [#/Vol] 327 10*3/uL Normal 150-400 [facility] Comment on above: Order Comment: Speci men Type: BLOOD SPECIMENOrdering Facility: [facility] Address: [address] [place] [address] Performed By: #### 5 7021-8 ####[facility] LABIA [id number] [place] [address] RBC (Bld) [#/Vol] 3.68 10*6/uL Low 3.90-5.20 [facility] Comment on above: Order Comment: Speci men Type: BLOOD SPECIMENOrdering Facility: [facility] Address: [address] [place] [address] Performed By: #### 5 7021-8 ####[facility] LABIA [id number] [place] [address] WBC (Bld) [#/Vol] 5.01 10*3/uL Normal 3.70-11.00 [facility] Comment on above: Order Comment: Speci men Type: BLOOD SPECIMENOrdering Facility: [facility] Address: [address] [place] [address] Performed By: #### 5 7021-8 ####[facility] LABIA [id number] [place] [address] CNOVSPon 06-20-2024 CNOVS Visit (SP) Office (HEMASA) SVETLANA ADRIAN ([id number]) 1955 F Date Time Provider Department 06/20/24 10:00 AM MASHA KNIGHT During your visit today, we recorded the following information about you: Temperature Pulse Respiration Blood pressure 97.3 degrees 71/minute 18/minute 94/53 Weight Height 42.6 kg 1.507 m Masha Knight APRN.BUSINESS ADMINISTRATION PROGRAM CHAIR 06/20/2024 4:10 PM Signed NAME: Svetlana Adrian CLINIC NO.: [id number] DATE OF SERVICE: June 20, 2024 (Caleb) Some elements in this clinic note that are critical to medical decision making have been carefully reviewed and included from a prior clinic note dated: May 30, 2024 (Sagar) Referring Provider: Lin Dalton MD Additional Clinicians involved in Svetlana Adrian's care: Alejandro Ware DIAGNOSIS: Muscle invasive bladder Ca. ASSESSMENT: 69 year old woman with chronic tobacco use and muscle invasive bladder cancer s/p TURBT with Dr. Dalton mid-January 2024, with no evidence of metastatic disease on staging CT's done in mid-March 2024. Historically, she has preserved kidney function and should be able to tolerate Cisplatin without too much difficulty in the neoadjuvant setting. PLAN: Treatment today for C4D1 Treatment next week for C4D8. Will arrange for CT urogram, CT chest and abdomen in 4 weeks. Will arrange for a follow-up with Dr. Alejandro Ware to discuss surgery after CT scans complete. Plan will be to see the patient back after her surgery. Will continue to keep psych social worker involved for patient needs. Patient will contact her PCP regarding medication adjustments for anxiety, depression and sleep. - HPI: CASE HISTORY: Reverse Chronological Order 04/18/2024-Current - GemCis D1, 8 q 21 days 03/28/2024 - CT Chest: Moderate emphysematous changes/COPD. No acute infiltrates or suspicious nodules to suggest metastatic disease. Mild left hydronephrosis incompletely included on today's study 01/30/2024 - CT A/P: No bowel obstruction, ileus, or appreciable inflammatory changes, distal colonic diverticulosis, but no appreciable diverticulitis. Slight wall thickening of urinary bladder. Cystitis? Marked atherosclerotic disease of aorta an branches, but no aneurysm or occlusion 01/23/2024 - XR Urethrogram: Left retrograde pyelogram with no filling defect or mass observed 01/23/2024 - Bladder mass, transurethral resection: Dr. 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 Recommend cystoscopy. No obstructive uropathy. 01/13/2024 - CT A/P: for hematuria Left bladder wall masslike thickening concerning for malignancy. Recommend urology consultation. Colonic diverticulosis Updated Visit, June 20, 2024: Svetlana Adrian returns for follow-up and continued treatment. Overall, she is tolerating treatment well. After treatment she experiences fatigue and sleeps a lot. She is not eating well but is trying. She supplements her diet with Ensure twice a day. She denies any abnormal bleeding. She continues to bruise easily. Her urine is occasionally pink-tinged. She denies fevers, chills and signs/symptoms of infection. She states that she always feels cold. She has been feeling more depressed lately. She was started on gabapentin for sleep and neuropathy. The gabapentin has helped with calming her nerves and sleep. Her main concerns involve finances. She states that she is living in a trailer that is falling apart. She states that her car will not make it through the winter. Her has COPD and was taken to the hospital yesterday and discharged home. She has difficulty with transportation. She does get assistance with transportation but only certain distances. She has problems paying her medical bills and is concerned with the upcoming need for surgery. Updated Visit, May 30, 2024: Returns with Bill. Difficulty breathing with change in weather and more congestion. Otherwise doing well but is unfortunately still smoking due to stress of everything. Updated Visit, May 09, 2024: Patient is here today for consideration of C2D1 of Gemzar/Cisplatin. Her performance status is 0, and she is tolerating chemotherapy well. Patient denies: weakness, fever, chills, sweats, weight loss, mouth sores, vomiting, diarrhea, constipation, athralgias, myalgias, MARCUS, Edema. Having increased fatigue since starting chemotherapy. Met with belt brander, trying to eat better. Weight is down a few pounds since last visit. Having some peripheral neuropathy in bilateral fingers and toes. Comes and goes, not getting any worse. Patient is taking Gabapentin. Encouraged to take vitamin B-complex and Alp (more content not included)... [facility]N Telephone (NCCAP) SVETLANA ADRIAN ([id number]) 1955 F Date Time Provider Department 06/20/24 MASHA KNIGHT During your visit today, we recorded the following information about you: Rd Leblanc 06/20/2024 1:28 PM Signed Patient is now ready to be referred back to Dr. Ware for surgery. Thank you! Rd Muhammad 06/24/2024 2:24 PM Signed Patient is scheduled 07/30. Rd Leblanc Allergies As of Date: 06/20/2024 (No Known Allergies) Date Reviewed: 06/20/2024 Reviewed by: Masha Knight APRN.BUSINESS ADMINISTRATION PROGRAM CHAIR - Fully Assessed Reason for Visit: Appointment [186] Prescriptions as of 06/24/2024 - ondansetron (ZOFRAN) 8 mg tablet Take 1 tablet by mouth every 8 hours as needed for nausea/vomiting. - ensifentrine (OHTUVAYRE) 3 mg/2.5 mL suspension for nebulization Use 3 mg via nebulizer two times a day. - zinc sulfate (ZINC-15 ORAL) Take by mouth. - meloxicam (MOBIC) 7.5 mg tablet Take 7.5 mg by mouth once daily. - metoprolol succinate ER (TOPROL XL) 100 mg Take 100 mg by mouth. - pantoprazole DR (PROTONIX) 40 mg tablet Take 40 mg by mouth once daily. - Pramipexole 0.75 mg tablet Take 0.75 mg by mouth. - guaiFENesin (MUCINEX) 600 mg 12 hr tablet Take 1,200 mg by mouth. - budesonide (PULMICORT) 0.5 mg/2 mL nebulizer solution 0.5 mg. - arformoterol (BROVANA) 15 mcg/2 mL nebulizer solution 15 mcg. - fluticasone (FLONASE) 50 mcg/actuation nasal spray 2 Sprays. - Ipratropium (ATROVENT HFA) 17 mcg/actuation inhaler Inhale 2 Puffs as instructed. - amLODIPine (NORVASC) 5 mg tablet Take 5 mg by mouth. - alendronate (FOSAMAX) 70 mg tablet Take 1 tablet by mouth one time a week. - atorvastatin (LIPITOR) 40 mg tablet Take 40 mg by mouth. - biotin 5 mg capsule Take 5 mg by mouth. - escitalopram oxalate (LEXAPRO) 20 mg tablet Take 20 mg by mouth. - gabapentin (NEURONTIN) 300 mg capsule Take 300 mg by mouth daily at bedtime. - revefenacin (YUPELRI) 175 mcg/3 mL solution for nebulization 175 mcg. - losartan (COZAAR) 100 mg tablet Take 100 mg by mouth. Problem List As Of Date 06/20/2024 Noted Resolved Malignant neoplasm of overlapping sites of blad*04/07/2024 Severe protein-calorie malnutrition (HCC) [E43] 04/18/2024 Encounter Status:Closed by RD LEBLANC on 06/24/24 Normal [facility] Comprehensive metabolic 2000 panelon 06-20-2024 Albumin [Mass/Vol] 4.4 g/dL Normal 3.9-4.9 [facility] Comment on above: Order Comment: Speci men Type: BLOOD SPECIMENOrdering Facility: [facility] Address: [address] [place] [address] Performed By: #### 2 4323-8 ####[facility] LABCLIA [id number] [place] [address] ALP [Catalytic activity/Vol] 68 U/L Normal 34-123 [facility] Comment on above: Order Comment: Speci men Type: BLOOD SPECIMENOrdering Facility: [facility] Address: [address] [id number] Performed By: #### 2 4323-8 ####[facility] LABCLIA [id number] [place] [address] ALT [Catalytic activity/Vol] 33 U/L Normal 7-38 [facility] Comment on above: Order Comment: Speci men Type: BLOOD SPECIMENOrdering Facility: [facility] Address: [address] [place] [address] Performed By: #### 2 4323-8 ####[facility] LABCLIA [id number] [place] [address] Anion gap [Moles/Vol] 12 mmol/L Normal 8-15 [facility] Comment on above: Order Comment: Speci men Type: BLOOD SPECIMENOrdering Facility: [facility] Address: [address] [place] [address] Performed By: #### 2 4323-8 ####[facility] LABCLIA [id number] [place] [address] AST [Catalytic activity/Vol] 31 U/L Normal 13-35 [facility] Comment on above: Order Comment: Speci men Type: BLOOD SPECIMENOrdering Facility: [facility] Address: [address] [place] [address] Performed By: #### 2 4323-8 ####[facility] LABCLIA [id number] [place] [address] Bilirubin [Mass/Vol] 0.3 mg/dL Normal 0.2-1.3 [facility] Comment on above: Order Comment: Speci men Type: BLOOD SPECIMENOrdering Facility: [facility] Address: [address] [place] [address] Performed By: #### 2 4323-8 ####[facility] LABCLIA [id number] [place] [address] Calcium [Mass/Vol] 9.7 mg/dL Normal 8.5-10.2 [facility] Comment on above: Order Comment: Speci men Type: BLOOD SPECIMENOrdering Facility: [facility] Address: [address] [place] [address] Performed By: #### 2 4323-8 ####[facility] LABCLIA [id number] [place] [address] Chloride [Moles/Vol] 95 mmol/L Low 98-107 [facility] Comment on above: Order Comment: Speci men Type: BLOOD SPECIMENOrdering Facility: [facility] Address: [address] [place] [address] Performed By: #### 2 4323-8 ####[facility] LABCLIA [id number] [place] [address] CO2 [Moles/Vol] 26 mmol/L Normal 22-30 [facility] Comment on above: Order Comment: Speci men Type: BLOOD SPECIMENOrdering Facility: [facility] Address: [address] [place] [address] Performed By: #### 2 4323-8 ####[facility] LABCLIA [id number] [place] [address] Creatinine [Mass/Vol] 0.71 mg/dL Normal 0.58-0.96 [facility] Comment on above: Order Comment: Speci men Type: BLOOD SPECIMENOrdering Facility: [facility] Address: [address] [place] [address] Performed By: #### 2 4323-8 ####[facility] LABCLIA [id number] [place] [address] Creatinine and Glomerular filtration rate.predicted panel (S/P/Bld) 91 mL/min/1.73m??? Normal >=60 [facility] Comment on above: Order Comment: Speci men Type: BLOOD SPECIMENOrdering Facility: [facility] Address: [address] [place] [address] Result Comment: Tosin mated Glomerular Filtration Rate (eGFR) is calculated using the 2020 CKD-EPI creatinine equation. This equation utilizes serum creatinine, sex, and age as parameters. The creatinine assay has traceable calibration to isotope dilution-mass spectrometry. Refer to KDIGO guidelines for clinical interpretation. In patients with unstable renal function, e.g. those with acute kidney injury, the eGFR may not accurately reflect actual GFR. Performed By: #### 2 4323-8 ####[facility] LABCLIA [id number] [place] [address] Glucose [Mass/Vol] 113 mg/dL High 74-99 [facility] Comment on above: Order Comment: Speci men Type: BLOOD SPECIMENOrdering Facility: [facility] Address: [address] [place], [place] [id number] Result Comment: The [place] Diabetes Association (ADA) provides guidance for cutoff values for fasting glucose and random glucose. The ADA defines fasting as no caloric intake for at least 8 hours. Fasting plasma glucose results between 100 to 125 mg/dL indicate increased risk for diabetes (prediabetes). Fasting plasma glucose results greater than or equal to 126 mg/dL meet the criteria for diagnosis of diabetes. In the absence of unequivocal hyperglycemia, results should be confirmed by repeat testing. In a patient with classic symptoms of hyperglycemia or hyperglycemic crisis, random plasma glucose results greater than or equal to 200 mg/dL meet the criteria for diagnosis of diabetes. Reference: Standards of Medical Care in Diabetes 2016, [place] [employer]. Diabetes Care. 2016.39(Suppl 1). Performed By: #### 2 4323-8 ####[facility] LABCLIA [id number] [place] [address] Potassium [Moles/Vol] 3.9 mmol/L Normal 3.7-5.1 [facility] Comment on above: Order Comment: Speci men Type: BLOOD SPECIMENOrdering Facility: [facility] Address: [address] [place] [address] Performed By: #### 2 4323-8 ####[facility] LABCLIA [id number] [place] [address] Protein [Mass/Vol] 6.7 g/dL Normal 6.3-8.0 [facility] Comment on above: Order Comment: Speci men Type: BLOOD SPECIMENOrdering Facility: [facility] Address: [place] [address] Performed By: #### 2 4323-8 ####[facility] LABCLIA [id number] [place] [address] Sodium [Moles/Vol] 133 mmol/L Low 136-144 [facility] Comment on above: Order Comment: Speci men Type: BLOOD SPECIMENOrdering Facility: [facility] Address: [address] [place] [address] Performed By: #### 2 4323-8 ####[facility] LABCLIA [id number] [place] [address] Urea nitrogen [Mass/Vol] 8 mg/dL Normal 7-21 [facility] Comment on above: Order Comment: Speci men Type: BLOOD SPECIMENOrdering Facility: [facility] Address: [address] [place] [address] Performed By: #### 2 4323-8 ####[facility] LABCLIA [id number] [place] [address] CBC W Auto Differential pane l (Bld)on 06-06-2024 Basophils (Bld) [#/Vol] 0.04 10*3/uL [facility] Basophils/100 WBC (Bld) 1.6 % [facility] Differential cell count method Nom (Bld) Auto [facility] Eosinophils (Bld) [#/Vol] 0.03 10*3/uL [facility] Eosinophils/100 WBC (Bld) 1.2 % [facility] Erythrocyte distribution width (RBC) [Ratio] 19.1 % High 11.5 - 15.0 % [facility] Hematocrit (Bld) [Volume fraction] 33.1 % Low 36.0 - 46.0 % [facility] Hemoglobin (Bld) [Mass/Vol] 11.2 g/dL Low 11.5 - 15.5 g/dL [facility] Immature granulocytes (Bld) [#/Vol] 0.08 10*3/uL [facility] Immature granulocytes/100 WBC (Bld) 3.2 % [facility] Interpretation and review of laboratory results Abnormal [facility] Lymphocytes (Bld) [#/Vol] 0.88 10*3/uL Low [facility] Lymphocytes/100 WBC (Bld) 35.2 % [facility] MCH (RBC) [Entitic mass] 29.6 pg 26.0 - 34.0 pg [facility] MCHC (RBC) [Mass/Vol] 33.8 g/dL 30.5 - 36.0 g/dL [facility] MCV (RBC) [Entitic vol] 87.6 fL 80.0 - 100.0 fL [facility] Monocytes (Bld) [#/Vol] 0.36 10*3/uL [facility] Monocytes/100 WBC (Bld) 14.4 % [facility] Neutrophils (Bld) [#/Vol] 1.11 10*3/uL Low [facility] Neutrophils/100 WBC (Bld) 44.4 % [facility] Nucleated RBC (Bld) [#/Vol] [facility] Nucleated RBC/100 WBC (Bld) [Ratio] 0.0 % /100 WBC [facility] Platelet mean volume (Bld) [Entitic vol] 9.2 fL 9.0 - 12.7 fL [facility] Platelets (Bld) [#/Vol] 433 10*3/uL High [facility] RBC (Bld) [#/Vol] 3.78 10*6/uL Low 3.90 - 5.2 0 m/uL [facility] WBC (Bld) [#/Vol] 2.50 10*3/uL Low [facility] Basophils (Bld) [#/Vol] 0.04 10*3/uL Normal <0.11 [facility] Comment on above: Order Comment: Speci men Type: BLOOD SPECIMENOrdering Facility: [facility] Address: [address] [place] [address] Performed By: #### 5 7021-8 ####[facility] LABCLIA [id number] [place] [address] Basophils/100 WBC (Bld) 1.6 % Normal [facility] Comment on above: Order Comment: Speci men Type: BLOOD SPECIMENOrdering Facility: [facility] Address: [address] [place] [address] Performed By: #### 5 7021-8 ####[facility] LABCLIA [id number] [place] [address] Differential cell count method Nom (Bld) Auto Normal [facility] Comment on above: Order Comment: Speci men Type: BLOOD SPECIMENOrdering Facility: [facility] Address: [address] [place] [address] Performed By: #### 5 7021-8 ####[facility] LABCLIA [id number] [place] [address] Eosinophils (Bld) [#/Vol] 0.03 10*3/uL Normal <0.46 [facility] Comment on above: Order Comment: Speci men Type: BLOOD SPECIMENOrdering Facility: [facility] Address: [address] [place] [address] Performed By: #### 5 7021-8 ####[facility] LABCLIA [id number] [place] [address] Eosinophils/100 WBC (Bld) 1.2 % Normal [facility] Comment on above: Order Comment: Speci men Type: BLOOD SPECIMENOrdering Facility: [facility] Address: [address] [place] [address] Performed By: #### 5 7021-8 ####[facility] LABCLIA [id number] [place] [address] Erythrocyte distribution width (RBC) [Ratio] 19.1 % High 11.5-15.0 [facility] Comment on above: Order Comment: Speci men Type: BLOOD SPECIMENOrdering Facility: [facility] Address: [address] [place] [address] Performed By: #### 5 7021-8 ####[facility] LABCLIA [id number] [place] [address] Hematocrit (Bld) [Volume fraction] 33.1 % Low 36.0-46.0 [facility] Comment on above: Order Comment: Speci men Type: BLOOD SPECIMENOrdering Facility: [facility] Address: [address] [place] [address] Performed By: #### 5 7021-8 ####[facility] LABCLIA [id number] [place] [address] Hemoglobin (Bld) [Mass/Vol] 11.2 g/dL Low 11.5-15.5 [facility] Comment on above: Order Comment: Speci men Type: BLOOD SPECIMENOrdering Facility: [facility] Address: [address] [place] [address] Performed By: #### 5 7021-8 ####[facility] LABCLIA [id number] [place] [address] Immature granulocytes (Bld) [#/Vol] 0.08 10*3/uL Normal <0.10 [facility] Comment on above: Order Comment: Speci men Type: BLOOD SPECIMENOrdering Facility: [facility] Address: [address] [place] [address] Performed By: #### 5 7021-8 ####[facility] LABCLIA [id number] [place] [address] Immature granulocytes/100 WBC (Bld) 3.2 % Normal [facility] Comment on above: Order Comment: Speci men Type: BLOOD SPECIMENOrdering Facility: [facility] Address: [address] [place] [address] Performed By: #### 5 7021-8 ####[facility] LABCLIA [id number] [place] [address] Lymphocytes (Bld) [#/Vol] 0.88 10*3/uL Low 1.00-4.00 [facility] Comment on above: Order Comment: Speci men Type: BLOOD SPECIMENOrdering Facility: [facility] Address: [address] [place] [address] Performed By: #### 5 7021-8 ####[facility] LABCLIA [id number] [place] [address] Lymphocytes/100 WBC (Bld) 35.2 % Normal [facility] Comment on above: Order Comment: Speci men Type: BLOOD SPECIMENOrdering Facility: [facility] Address: [address] [place] [address] Performed By: #### 5 7021-8 ####[facility] LABCLIA [id number] [place] [address] MCH (RBC) [Entitic mass] 29.6 pg Normal 26.0-34.0 [facility] Comment on above: Order Comment: Speci men Type: BLOOD SPECIMENOrdering Facility: [facility] Address: [address] [place] [address] Performed By: #### 5 7021-8 ####[facility] LABIA [id number] [place] [address] MCHC (RBC) [Mass/Vol] 33.8 g/dL Normal 30.5-36.0 [facility] Comment on above: Order Comment: Speci men Type: BLOOD SPECIMENOrdering Facility: [facility] Address: [address] [place] [address] Performed By: #### 5 7021-8 ####[facility] LABCLIA [id number] [place] [address] MCV (RBC) [Entitic vol] 87.6 fL Normal 80.0-100.0 [facility] Comment on above: Order Comment: Speci men Type: BLOOD SPECIMENOrdering Facility: [facility] Address: [address] [place] [address] Performed By: #### 5 7021-8 ####[facility] LABIA [id number] [place] [address] Monocytes (Bld) [#/Vol] 0.36 10*3/uL Normal <0.87 [facility] Comment on above: Order Comment: Speci men Type: BLOOD SPECIMENOrdering Facility: [facility] Address: [address] [place] [address] Performed By: #### 5 7021-8 ####[facility] LABCLIA [id number] [place] [address] Monocytes/100 WBC (Bld) 14.4 % Normal [facility] Comment on above: Order Comment: Speci men Type: BLOOD SPECIMENOrdering Facility: [facility] Address: [address] [place] [address] Performed By: #### 5 7021-8 ####[facility] LABCLIA [id number] [place] [address] Neutrophils (Bld) [#/Vol] 1.11 10*3/uL Low 1.45-7.50 [facility] Comment on above: Order Comment: Speci men Type: BLOOD SPECIMENOrdering Facility: [facility] Address: [address] [place] [address] Performed By: #### 5 7021-8 ####[facility] LABCLIA [id number] [place] [address] Neutrophils/100 WBC (Bld) 44.4 % Normal [facility] Comment on above: Order Comment: Speci men Type: BLOOD SPECIMENOrdering Facility: [facility] Address: [address] [place] [address] Performed By: #### 5 7021-8 ####[facility] LABCLIA [id number] [place] [address] Nucleated RBC (Bld) [#/Vol] 10*3/uL Normal <0.01 [facility] Comment on above: Order Comment: Speci men Type: BLOOD SPECIMENOrdering Facility: [facility] Address: [address] [place] [address] Performed By: #### 5 7021-8 ####[facility] LABCLIA [id number] [place] [address] Nucleated RBC/100 WBC (Bld) [Ratio] 0.0 /100 WBC Normal [facility] Comment on above: Order Comment: Speci men Type: BLOOD SPECIMENOrdering Facility: [facility] Address: [address] [place] [address] Performed By: #### 5 7021-8 ####[facility] LABCLIA [id number] [place] [address] Platelet mean volume (Bld) [Entitic vol] 9.2 fL Normal 9.0-12.7 [facility] Comment on above: Order Comment: Speci men Type: BLOOD SPECIMENOrdering Facility: [facility] Address: [address] [place] [address] Performed By: #### 5 7021-8 ####[facility] LABIA [id number] [place] [address] Platelets (Bld) [#/Vol] 433 10*3/uL High 150-400 [facility] Comment on above: Order Comment: Speci men Type: BLOOD SPECIMENOrdering Facility: [facility] Address: [address] [place] [address] Performed By: #### 5 7021-8 ####[facility] LABIA [id number] [place] [address] RBC (Bld) [#/Vol] 3.78 10*6/uL Low 3.90-5.20 [facility] Comment on above: Order Comment: Speci men Type: BLOOD SPECIMENOrdering Facility: [facility] Address: [address] [place] [address] Performed By: #### 5 7021-8 ####[facility] LABIA [id number] [place] [address] WBC (Bld) [#/Vol] 2.50 10*3/uL Low 3.70-11.00 [facility] Comment on above: Order Comment: Speci men Type: BLOOD SPECIMENOrdering Facility: [facility] Address: [address] [id number] Performed By: #### 5 7021-8 ####[facility] LABCLIA [id number] [place] [address] Comprehensive metabolic 2000 panelon 06-06-2024 Albumin [Mass/Vol] 3.9 g/dL 3.9 - 4.9 g/dL [facility] ALP [Catalytic activity/Vol] 62 U/L 34 - 123 U/L [facility] Comment on above: Corrected result: Pr eviously reported as 64 U/L on 06/06/2024 at 11:29 AM EDT. ALT [Catalytic activity/Vol] 48 U/L High 7 - 38 U/L [facility] Comment on above: Corrected result: Pr eviously reported as 41 U/L on 06/06/2024 at 11:29 AM EDT. Anion gap [Moles/Vol] 18 mmol/L High 8 - 15 mmol/L [facility] AST [Catalytic activity/Vol] 44 U/L High 13 - 35 U/L [facility] Comment on above: Corrected result: Pr eviously reported as 32 U/L on 06/06/2024 at 11:29 AM EDT. Bilirubin [Mass/Vol] 0.2 mg/dL 0.2 - 1 .3 mg/dL [facility] Calcium [Mass/Vol] 9.9 mg/dL 8.5 - 10. 2 mg/dL [facility] Comment on above: Corrected result: Pr eviously reported as 9.4 mg/dL on 06/06/2024 at 11:29 AM EDT. Chloride [Moles/Vol] 95 mmol/L Low 98 - 10 7 mmol/L [facility] CO2 [Moles/Vol] 23 mmol/L 22 - 30 mmol/L [facility] Comment on above: Corrected result: Pr eviously reported as 28 mmol/L on 06/06/2024 at 11:29 AM EDT. Creatinine [Mass/Vol] 0.64 mg/dL 0.58 - 0.96 mg/dL [facility] Comment on above: Corrected result: Pr eviously reported as 0.66 mg/dL on 06/06/2024 at 11:29 AM EDT. GFR/1.73 sq M.predicted among non-blacks MDRD (S/P/Bld) [Vol rate/Area] 95 mL/min/{1.73_m2} - PINF [facility] Comment on above: Estimated Glomerular Filtration Rate (eGFR) is calculated using the 2020 CKD-EPI creatinine equation. This equation utilizes serum creatinine, sex, and age as parameters. The creatinine assay has traceable calibration to isotope dilution-mass spectrometry. Refer to KDIGO guidelines for clinical interpretation. In patients with unstable renal function, e.g. those with acute kidney injury, the eGFR may not accurately reflect actual GFR. Glucose [Mass/Vol] 136 mg/dL High 74 - 99 mg/dL [facility] Comment on above: The [place] Di[employer] s Association (ADA) provides guidance for cutoff values for fasting glucose and random glucose. The ADA defines fasting as no caloric intake for at least 8 hours. Fasting plasma glucose results between 100 to 125 mg/dL indicate increased risk for diabetes (prediabetes). Fasting plasma glucose results greater than or equal to 126 mg/dL meet the criteria for diagnosis of diabetes. In the absence of unequivocal hyperglycemia, results should be confirmed by repeat testing. In a patient with classic symptoms of hyperglycemia or hyperglycemic crisis, random plasma glucose results greater than or equal to 200 mg/dL meet the criteria for diagnosis of diabetes. Reference: Standards of Medical Care in Diabetes 2016, [place] [employer] Association. Diabetes Care. 2016.39(Suppl 1). Corrected result: Previously reported as 145 mg/dL on 06/06/2024 at 11:29 AM EDT. Interpretation and review of laboratory results Abnormal [facility] Potassium [Moles/Vol] 3.7 mmol/L 3.7 - 5.1 mmol/L [facility] Protein [Mass/Vol] 6.1 g/dL Low 6.3 - 8.0 g/dL [facility] Comment on above: Corrected result: Pr eviously reported as 6.0 g/dL on 06/06/2024 at 11:29 AM EDT. Sodium [Moles/Vol] 136 mmol/L 136 - 144 mmol/L [facility] Urea nitrogen [Mass/Vol] 10 mg/dL 7 - 21 mg/dL [facility] Albumin [Mass/Vol] 3.9 g/dL Normal 3.9-4.9 [facility] Comment on above: Order Comment: Speci men Type: BLOOD SPECIMENOrdering Facility: [facility] Address: [address] [place] [address] Performed By: #### 2 4323-8 ####[facility] LABCLIA [id number] [place] [address] [place] ALP [Catalytic activity/Vol] 62 U/L Normal 34-123 [facility] Comment on above: Order Comment: Speci men Type: BLOOD SPECIMENOrdering Facility: [facility] Address: [address] [place] [address] Result Comment: Magdi ected result: Previously reported as 64 U/L on 06/06/2024 at 11:29 AM EDT. Performed By: #### 2 4323-8 ####[facility] LABCLIA [id number] [place] [address] [place] ALT [Catalytic activity/Vol] 48 U/L High 7-38 [facility] Comment on above: Order Comment: Speci men Type: BLOOD SPECIMENOrdering Facility: [facility] Address: [address] [place] [address] Result Comment: Magdi ected result: Previously reported as 41 U/L on 06/06/2024 at 11:29 AM EDT. Performed By: #### 2 4323-8 ####[facility] LABCLIA [id number] [place] [address] [place] Anion gap [Moles/Vol] 18 mmol/L High 8-15 [facility] Comment on above: Order Comment: Speci men Type: BLOOD SPECIMENOrdering Facility: [facility] Address: [address] [place] [address] Performed By: #### 2 4323-8 ####[facility] LABCLIA [id number] [place] [address] [place] AST [Catalytic activity/Vol] 44 U/L High 13-35 [facility] Comment on above: Order Comment: Speci men Type: BLOOD SPECIMENOrdering Facility: [facility] Address: [address] [place] [address] Result Comment: Magdi ected result: Previously reported as 32 U/L on 06/06/2024 at 11:29 AM EDT. Performed By: #### 2 4323-8 ####[facility] LABCLIA [id number] [place] [address] [place] Bilirubin [Mass/Vol] 0.2 mg/dL Normal 0.2-1.3 [facility] Comment on above: Order Comment: Speci men Type: BLOOD SPECIMENOrdering Facility: [facility] Address: [address] [place] [address] Performed By: #### 2 4323-8 ####[facility] LABCLIA [id number] [place] [address] [place] Calcium [Mass/Vol] 9.9 mg/dL Normal 8.5-10.2 [facility] Comment on above: Order Comment: Speci men Type: BLOOD SPECIMENOrdering Facility: [facility] Address: [address] [place] [address] Result Comment: Magdi ected result: Previously reported as 9.4 mg/dL on 06/06/2024 at 11:29 AM EDT. Performed By: #### 2 4323-8 ####[facility] LABCLIA [id number] [place] [address] [place] Chloride [Moles/Vol] 95 mmol/L Low 98-107 [facility] Comment on above: Order Comment: Speci men Type: BLOOD SPECIMENOrdering Facility: [facility] Address: [address] [place] [address] Performed By: #### 2 4323-8 ####[facility] LABCLIA [id number] [place] [address] [place] CO2 [Moles/Vol] 23 mmol/L Normal 22-30 [facility] Comment on above: Order Comment: Speci men Type: BLOOD SPECIMENOrdering Facility: [facility] Address: [address] [place] [address] Result Comment: Magdi ected result: Previously reported as 28 mmol/L on 06/06/2024 at 11:29 AM EDT. Performed By: #### 2 4323-8 ####[facility] LABCLIA [id number] [place] [address] [place] Creatinine [Mass/Vol] 0.64 mg/dL Normal 0.58-0.96 [facility] Comment on above: Order Comment: Speci men Type: BLOOD SPECIMENOrdering Facility: [facility] Address: [address] [place] [address] Result Comment: Magdi ected result: Previously reported as 0.66 mg/dL on 06/06/2024 at 11:29 AM EDT. Performed By: #### 2 4323-8 ####[facility] LABCLIA [id number] [address] [place] [facility] Creatinine and Glomerular filtration rate.predicted panel (S/P/Bld) 95 mL/min/1.73m??? Normal >=60 [facility] Comment on above: Order Comment: Speci men Type: BLOOD SPECIMENOrdering Facility: [facility] Address: [address] [place] [address] Result Comment: Tosin mated Glomerular Filtration Rate (eGFR) is calculated using the 2020 CKD-EPI creatinine equation. This equation utilizes serum creatinine, sex, and age as parameters. The creatinine assay has traceable calibration to isotope dilution-mass spectrometry. Refer to KDIGO guidelines for clinical interpretation. In patients with unstable renal function, e.g. those with acute kidney injury, the eGFR may not accurately reflect actual GFR. Performed By: #### 2 4323-8 ####[facility] LABCLIA [id number] [facility] [place] [address] [place] Glucose [Mass/Vol] 136 mg/dL High 74-99 [facility] Comment on above: Order Comment: Speci men Type: BLOOD SPECIMENOrdering Facility: [facility] Address: [address] [place] [address] Result Comment: The [place] Diabetes Association (ADA) provides guidance for cutoff values for fasting glucose and random glucose. The ADA defines fasting as no caloric intake for at least 8 hours. Fasting plasma glucose results between 100 to 125 mg/dL indicate increased risk for diabetes (prediabetes). Fasting plasma glucose results greater than or equal to 126 mg/dL meet the criteria for diagnosis of diabetes. In the absence of unequivocal hyperglycemia, results should be confirmed by repeat testing. In a patient with classic symptoms of hyperglycemia or hyperglycemic crisis, random plasma glucose results greater than or equal to 200 mg/dL meet the criteria for diagnosis of diabetes. Reference: Standards of Medical Care in Diabetes 2016, [place] [employer]. Diabetes Care. 2016.39(Suppl 1). Corrected result: Previously reported as 145 mg/dL on 06/06/2024 at 11:29 AM EDT. Performed By: #### 2 4323-8 ####[facility] LABCLIA [id number] [place] [address] [place] Potassium [Moles/Vol] 3.7 mmol/L Normal 3.7-5.1 [facility] Comment on above: Order Comment: Shantel walters Type: BLOOD SPECIMENOrdering Facility: [facility] Address: [address] [place] [address] Performed By: #### 2 4323-8 ####[facility] LABCLIA [id number] [place] [address] [place] Protein [Mass/Vol] 6.1 g/dL Low 6.3-8.0 [facility] Comment on above: Order Comment: Shantel walters Type: BLOOD SPECIMENOrdering Facility: [facility] Address: [address] [place] [address] Result Comment: Magdi ected result: Previously reported as 6.0 g/dL on 06/06/2024 at 11:29 AM EDT. Performed By: #### 2 4323-8 ####[facility] LABCLIA [id number] [place] [address] [place] Sodium [Moles/Vol] 136 mmol/L Normal 136-144 [facility] Comment on above: Order Comment: Speci men Type: BLOOD SPECIMENOrdering Facility: [facility] Address: [address] [place] [address] Performed By: #### 2 4323-8 ####[facility] LABCLIA [id number] [place] [address] [place] Urea nitrogen [Mass/Vol] 10 mg/dL Normal 7-21 [facility] Comment on above: Order Comment: Speci men Type: BLOOD SPECIMENOrdering Facility: [facility] Address: [address] [place] [address] Performed By: #### 2 4323-8 ####[facility] LABCLIA [id number] [place] [address] [place] CBC W Auto Differential pane l (Bld)on 05-30-2024 Basophils (Bld) [#/Vol] 10*3/uL Normal <0.11 [facility] Comment on above: Order Comment: Speci men Type: BLOOD SPECIMENOrdering Facility: [facility] Address: [address] [place] [address] Performed By: #### 5 7021-8 ####[facility] LABCLIA [id number] [place] [address] Basophils/100 WBC (Bld) 0.5 % Normal [facility] Comment on above: Order Comment: Speci men Type: BLOOD SPECIMENOrdering Facility: [facility] Address: [address] [place] [address] Performed By: #### 5 7021-8 ####[facility] LABCLIA [id number] [place] [address] Differential cell count method Nom (Bld) Auto Normal [facility] Comment on above: Order Comment: Speci men Type: BLOOD SPECIMENOrdering Facility: [facility] Address: [address] [place] [address] Performed By: #### 5 7021-8 ####[facility] LABCLIA [id number] [place] [address] Eosinophils (Bld) [#/Vol] 0.13 10*3/uL Normal <0.46 [facility] Comment on above: Order Comment: Speci men Type: BLOOD SPECIMENOrdering Facility: [facility] Address: [address] [place] [address] Performed By: #### 5 7021-8 ####[facility] LABCLIA [id number] [place] [address] Eosinophils/100 WBC (Bld) 3.4 % Normal [facility] Comment on above: Order Comment: Speci men Type: BLOOD SPECIMENOrdering Facility: [facility] Address: [address] [place] [address] Performed By: #### 5 7021-8 ####[facility] LABCLIA [id number] [place] [address] Erythrocyte distribution width (RBC) [Ratio] 19.3 % High 11.5-15.0 [facility] Comment on above: Order Comment: Speci men Type: BLOOD SPECIMENOrdering Facility: [facility] Address: [address] [place] [address] Performed By: #### 5 7021-8 ####[facility] LABCLIA [id number] [place] [address] Hematocrit (Bld) [Volume fraction] 34.9 % Low 36.0-46.0 [facility] Comment on above: Order Comment: Speci men Type: BLOOD SPECIMENOrdering Facility: [facility] Address: [address] [place] [address] Performed By: #### 5 7021-8 ####[facility] LABCLIA [id number] [place] [address] Hemoglobin (Bld) [Mass/Vol] 11.5 g/dL Normal 11.5-15.5 [facility] Comment on above: Order Comment: Speci men Type: BLOOD SPECIMENOrdering Facility: [facility] Address: [address] [place] [address] Performed By: #### 5 7021-8 ####[facility] LABCLIA [id number] [place] [address] Immature granulocytes (Bld) [#/Vol] 0.03 10*3/uL Normal <0.10 [facility] Comment on above: Order Comment: Speci men Type: BLOOD SPECIMENOrdering Facility: [facility] Address: [address] [place] [address] Performed By: #### 5 7021-8 ####[facility] LABCLIA [id number] [place] [address] Immature granulocytes/100 WBC (Bld) 0.8 % Normal [facility] Comment on above: Order Comment: Speci men Type: BLOOD SPECIMENOrdering Facility: [facility] Address: [address] [place] [address] Performed By: #### 5 7021-8 ####[facility] LABCLIA [id number] [place] [address] Lymphocytes (Bld) [#/Vol] 0.75 10*3/uL Low 1.00-4.00 [facility] Comment on above: Order Comment: Speci men Type: BLOOD SPECIMENOrdering Facility: [facility] Address: [address] [place] [address] Performed By: #### 5 7021-8 ####[facility] LABCLIA [id number] [place] [address] Lymphocytes/100 WBC (Bld) 19.5 % Normal [facility] Comment on above: Order Comment: Speci men Type: BLOOD SPECIMENOrdering Facility: [facility] Address: [address] [place] [address] Performed By: #### 5 7021-8 ####[facility] LABCLIA [id number] [place] [address] MCH (RBC) [Entitic mass] 28.8 pg Normal 26.0-34.0 [facility] Comment on above: Order Comment: Speci men Type: BLOOD SPECIMENOrdering Facility: [facility] Address: [address] [place] [address] Performed By: #### 5 7021-8 ####[facility] LABCLIA [id number] [place] [address] MCHC (RBC) [Mass/Vol] 33.0 g/dL Normal 30.5-36.0 [facility] Comment on above: Order Comment: Speci men Type: BLOOD SPECIMENOrdering Facility: [facility] Address: [address] [place] [address] Performed By: #### 5 7021-8 ####[facility] LABCLIA [id number] [place] [address] MCV (RBC) [Entitic vol] 87.5 fL Normal 80.0-100.0 [facility] Comment on above: Order Comment: Speci men Type: BLOOD SPECIMENOrdering Facility: [facility] Address: [address] [place] [address] Performed By: #### 5 7021-8 ####[facility] LABCLIA [id number] [place] [address] Monocytes (Bld) [#/Vol] 0.66 10*3/uL Normal <0.87 [facility] Comment on above: Order Comment: Speci men Type: BLOOD SPECIMENOrdering Facility: [facility] Address: [address] [place] [address] Performed By: #### 5 7021-8 ####[facility] LABCLIA [id number] [place] [address] Monocytes/100 WBC (Bld) 17.1 % Normal [facility] Comment on above: Order Comment: Speci men Type: BLOOD SPECIMENOrdering Facility: [facility] Address: [address] [place] [address] Performed By: #### 5 7021-8 ####[facility] LABCLIA [id number] [place] [address] Neutrophils (Bld) [#/Vol] 2.26 10*3/uL Normal 1.45-7.50 [facility] Comment on above: Order Comment: Speci men Type: BLOOD SPECIMENOrdering Facility: [facility] Address: [address] [place] [address] Performed By: #### 5 7021-8 ####[facility] LABCLIA [id number] [place] [address] Neutrophils/100 WBC (Bld) 58.7 % Normal [facility] Comment on above: Order Comment: Speci men Type: BLOOD SPECIMENOrdering Facility: [facility] Address: [address] [place] [address] Performed By: #### 5 7021-8 ####[facility] LABCLIA [id number] [place] [address] Nucleated RBC (Bld) [#/Vol] 10*3/uL Normal <0.01 [facility] Comment on above: Order Comment: Speci men Type: BLOOD SPECIMENOrdering Facility: [facility] Address: [address] [place] [address] Performed By: #### 5 7021-8 ####[facility] LABCLIA [id number] [place] [address] Nucleated RBC/100 WBC (Bld) [Ratio] 0.0 /100 WBC Normal [facility] Comment on above: Order Comment: Speci men Type: BLOOD SPECIMENOrdering Facility: [facility] Address: [address] [place] [address] Performed By: #### 5 7021-8 ####[facility] LABCLIA [id number] [place] [address] Platelet mean volume (Bld) [Entitic vol] 9.4 fL Normal 9.0-12.7 [facility] Comment on above: Order Comment: Speci men Type: BLOOD SPECIMENOrdering Facility: [facility] Address: [address] [place] [address] Performed By: #### 5 7021-8 ####[facility] LABIA [id number] [place] [address] Platelets (Bld) [#/Vol] 282 10*3/uL Normal 150-400 [facility] Comment on above: Order Comment: Speci men Type: BLOOD SPECIMENOrdering Facility: [facility] Address: [address] [place] [address] Performed By: #### 5 7021-8 ####[facility] [id number] [place] [address] RBC (Bld) [#/Vol] 3.99 10*6/uL Normal 3.90-5.20 [facility] Comment on above: Order Comment: Speci men Type: BLOOD SPECIMENOrdering Facility: [facility] Address: [address] [place] [address] Performed By: #### 5 7021-8 ####[facility] LABIA [id number] [place] [address] WBC (Bld) [#/Vol] 3.85 10*3/uL Normal 3.70-11.00 [facility] Comment on above: Order Comment: Speci men Type: BLOOD SPECIMENOrdering Facility: [facility] Address: [address] [place] [address] Performed By: #### 5 7021-8 ####[facility] LABIA [id number] [place] [address] CNOVSPon 05-30-2024 CNOVSP Visit (SP) Office ([place]) SVETLANA ADRIAN ([id number]) 1955 F Date Time Provider Department 05/30/24 10:00 AM LEE DUNN During your visit today, we recorded the following information about you: Temperature Pulse Respiration Blood pressure 97.3 degrees 59/minute 18/minute 116/63 Weight Height 44.4 kg 1.507 m Lee Dunn MD 05/30/2024 4:57 PM Signed NAME: Svetlana Adrian CLINIC NO.: [id number] DATE OF SERVICE: May 30, 2024 (casperjuana) Some elements in this clinic note that are critical to medical decision making have been carefully reviewed and included from a prior clinic note dated: May 08, 2024 (Sandi) Referring Provider: Lin Dalton MD Additional Clinicians involved in Svetlana Adrian's care: Alejandro Ware DIAGNOSIS: Muscle invasive bladder Ca. ASSESSMENT: 68 year old woman with chronic tobacco use and muscle invasive bladder cancer s/p TURBT with Dr. Dalton mid-January 2024, with no evidence of metastatic disease on staging CT's done in mid-March 2024. Historically, she has preserved kidney function and should be able to tolerate Cisplatin without too much difficulty in the neoadjuvant setting. PLAN: Treatment today for C3D1 Treatment next week for C3D8. RTC in 3 weeks for labs, clinician and treatment C4D1 - HPI: CASE HISTORY: Reverse Chronological Order 04/18/2024-Current - GemCis D1, 8 q 21 days 03/28/2024 - CT Chest: Moderate emphysematous changes/COPD. No acute infiltrates or suspicious nodules to suggest metastatic disease. Mild left hydronephrosis incompletely included on today's study 01/30/2024 - CT A/P: No bowel obstruction, ileus, or appreciable inflammatory changes, distal colonic diverticulosis, but no appreciable diverticulitis. Slight wall thickening of urinary bladder. Cystitis? Marked atherosclerotic disease of aorta an branches, but no aneurysm or occlusion 01/23/2024 - XR Urethrogram: Left retrograde pyelogram with no filling defect or mass observed 01/23/2024 - Bladder mass, transurethral resection: Dr. 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 Recommend cystoscopy. No obstructive uropathy. 01/13/2024 - CT A/P: for hematuria Left bladder wall masslike thickening concerning for malignancy. Recommend urology consultation. Colonic diverticulosis Updated Visit, May 30, 2024: Returns with Bill. Difficulty breathing with change in weather and more congestion. Otherwise doing well but is unfortunately still smoking due to stress of everything. Updated Visit, May 09, 2024: Patient is here today for consideration of C2D1 of Gemzar/Cisplatin. Her performance status is 0, and she is tolerating chemotherapy well. Patient denies: weakness, fever, chills, sweats, weight loss, mouth sores, vomiting, diarrhea, constipation, athralgias, myalgias, MARCUS, Edema. Having increased fatigue since starting chemotherapy. Met with belt brander, trying to eat better. Weight is down a few pounds since last visit. Having some peripheral neuropathy in bilateral fingers and toes. Comes and goes, not getting any worse. Patient is taking Gabapentin. Encouraged to take vitamin B-complex and Alpha Lipoic Acid. She is taking stool softeners for constipation- Constipation has improved. Trying to quit smoking- having a difficult time. Continues to have a chronic cough and SOB with exertion. Has intermittent nausea- Takes Zofran and that is helpful. Encouraged good mouth care with baking soda. Updated Visit, April 25, 2024: Svetlana returns with Bill today for treatment. She began GemCis on 04/18, has developed nausea but overall is tolerating well. She endorses continuing to smoke although intends to quit soon. Her appetite is not that great, however she has gained a pound. Initial Visit, April 04, 2024: Svetlana Adrian presents today for a Hematology and Oncology evaluation. She is joined by her , Royer. She is a 68 year old female who was found to have a bladder mass on imaging in January. TURBT confirmed malignancy with lamina propria and muscularis propria invasion. She has met with Dr. Ware to consider her surgical options. Anticipate moving forward with neoadjuvant chemotherapy with gemcitabine + cisplatin vs. Dickenson / Carbo She denies use of supplemental oxygen although she feels she could use it after walking long distances. FMHx of bladder cancer in her mother and prostate cancer in her brother. - REVIEW OF SYSTEMS Per HPI and otherwise negative by full review of organ systems. (more content not included)... Normal [facility] Comprehensive metabolic 2000 panelon 05-30-2024 Albumin [Mass/Vol] 3.9 g/dL Normal 3.9-4.9 [facility] Comment on above: Order Comment: Speci men Type: BLOOD SPECIMENOrdering Facility: [facility] Address: [address] [place] [address] Performed By: #### 2 4323-8 ####[facility] LABCLIA [id number] [place] [address] ALP [Catalytic activity/Vol] 66 U/L Normal 34-123 [facility] Comment on above: Order Comment: Speci men Type: BLOOD SPECIMENOrdering Facility: [facility] Address: [address] [place], [place] [address] Performed By: #### 2 4323-8 ####[facility] LABCLIA [id number] [place] [address] ALT [Catalytic activity/Vol] 62 U/L High 7-38 [facility] Comment on above: Order Comment: Speci men Type: BLOOD SPECIMENOrdering Facility: [facility] Address: [address] [place] [address] Performed By: #### 2 4323-8 ####[facility] LABCLIA [id number] [place] [address] Anion gap [Moles/Vol] 9 mmol/L Normal 8-15 [facility] Comment on above: Order Comment: Speci men Type: BLOOD SPECIMENOrdering Facility: [facility] Address: [address] [place] [address] Performed By: #### 2 4323-8 ####[facility] LABCLIA [id number] [place] [address] AST [Catalytic activity/Vol] 55 U/L High 13-35 [facility] Comment on above: Order Comment: Speci men Type: BLOOD SPECIMENOrdering Facility: [facility] Address: [address] [place] [address] Performed By: #### 2 4323-8 ####[facility] LABCLIA [id number] [place] [address] Bilirubin [Mass/Vol] 0.3 mg/dL Normal 0.2-1.3 [facility] Comment on above: Order Comment: Speci men Type: BLOOD SPECIMENOrdering Facility: [facility] Address: [address] [place] [address] Performed By: #### 2 4323-8 ####[facility] LABCLIA [id number] [place] [address] Calcium [Mass/Vol] 9.8 mg/dL Normal 8.5-10.2 [facility] Comment on above: Order Comment: Speci men Type: BLOOD SPECIMENOrdering Facility: [facility] Address: [address] [place] [address] Performed By: #### 2 4323-8 ####[facility] LABCLIA [id number] [place] [address] Chloride [Moles/Vol] 95 mmol/L Low 98-107 [facility] Comment on above: Order Comment: Speci men Type: BLOOD SPECIMENOrdering Facility: [facility] Address: [address] [place] [address] Performed By: #### 2 4323-8 ####[facility] LABCLIA [id number] [place] [address] CO2 [Moles/Vol] 29 mmol/L Normal 22-30 [facility] Comment on above: Order Comment: Speci men Type: BLOOD SPECIMENOrdering Facility: [facility] Address: [address] [place] [address] Performed By: #### 2 4323-8 ####[facility] LABCLIA [id number] [place] [address] Creatinine [Mass/Vol] 0.85 mg/dL Normal 0.58-0.96 [facility] Comment on above: Order Comment: Speci men Type: BLOOD SPECIMENOrdering Facility: [facility] Address: [address] [place] [address] Performed By: #### 2 4323-8 ####[facility] LABCLIA [id number] [place] [address] Creatinine and Glomerular filtration rate.predicted panel (S/P/Bld) 74 mL/min/1.73m??? Normal >=60 [facility] Comment on above: Order Comment: Speci men Type: BLOOD SPECIMENOrdering Facility: [facility] Address: [address] [place] [address] Result Comment: Tosin mated Glomerular Filtration Rate (eGFR) is calculated using the 2020 CKD-EPI creatinine equation. This equation utilizes serum creatinine, sex, and age as parameters. The creatinine assay has traceable calibration to isotope dilution-mass spectrometry. Refer to KDIGO guidelines for clinical interpretation. In patients with unstable renal function, e.g. those with acute kidney injury, the eGFR may not accurately reflect actual GFR. Performed By: #### 2 4323-8 ####[facility] LABCLIA [id number] [place] [address] Glucose [Mass/Vol] 129 mg/dL High 74-99 [facility] Comment on above: Order Comment: Speci men Type: BLOOD SPECIMENOrdering Facility: [facility] Address: [address] [place], [place] [address] Result Comment: The [place] Diabetes Association (ADA) provides guidance for cutoff values for fasting glucose and random glucose. The ADA defines fasting as no caloric intake for at least 8 hours. Fasting plasma glucose results between 100 to 125 mg/dL indicate increased risk for diabetes (prediabetes). Fasting plasma glucose results greater than or equal to 126 mg/dL meet the criteria for diagnosis of diabetes. In the absence of unequivocal hyperglycemia, results should be confirmed by repeat testing. In a patient with classic symptoms of hyperglycemia or hyperglycemic crisis, random plasma glucose results greater than or equal to 200 mg/dL meet the criteria for diagnosis of diabetes. Reference: Standards of Medical Care in Diabetes 2016, [place] [employer]. Diabetes Care. 2016.39(Suppl 1). Performed By: #### 2 4323-8 ####[facility] LABCLIA [id number] [place] [address] Potassium [Moles/Vol] 4.2 mmol/L Normal 3.7-5.1 [facility] Comment on above: Order Comment: Speci men Type: BLOOD SPECIMENOrdering Facility: [facility] Address: [address] [place] [address] Performed By: #### 2 4323-8 ####[facility] LABCLIA [id number] [place] [address] Protein [Mass/Vol] 5.9 g/dL Low 6.3-8.0 [facility] Comment on above: Order Comment: Speci men Type: BLOOD SPECIMENOrdering Facility: [facility] Address: [address] [place], [place] [address] Performed By: #### 2 4323-8 ####[facility] LABCLIA [id number] [place] [address] Sodium [Moles/Vol] 133 mmol/L Low 136-144 [facility] Comment on above: Order Comment: Speci men Type: BLOOD SPECIMENOrdering Facility: [facility] Address: [address] [place] [address] Performed By: #### 2 4323-8 ####[facility] LABCLIA [id number] [place] [id number] Urea nitrogen [Mass/Vol] 9 mg/dL Normal 7-21 [facility] Comment on above: Order Comment: Speci men Type: BLOOD SPECIMENOrdering Facility: [facility] Address: [address] [place] [address] Performed By: #### 2 4323-8 ####[facility] LABCLIA [id number] [place] [id number] CBC W Auto Differential pane l (Bld)on 05-16-2024 Basophils (Bld) [#/Vol] NINF [facility] Basophils/100 WBC (Bld) 0.7 % [facility] Differential cell count method Nom (Bld) Auto [facility] Eosinophils (Bld) [#/Vol] [facility] Eosinophils/100 WBC (Bld) 0.3 % [facility] Erythrocyte distribution width (RBC) [Ratio] 15.9 % High 11.5 - 15.0 % [facility] Hematocrit (Bld) [Volume fraction] 34.5 % Low 36.0 - 46.0 % [facility] Hemoglobin (Bld) [Mass/Vol] 12.0 g/dL 11.5 - 15.5 g/dL [facility] Immature granulocytes (Bld) [#/Vol] NINF [facility] Immature granulocytes/100 WBC (Bld) 0.7 % [facility] Interpretation and review of laboratory results Abnormal [facility] Lymphocytes (Bld) [#/Vol] 0.78 10*3/uL Low [facility] Lymphocytes/100 WBC (Bld) 26.6 % [facility] MCH (RBC) [Entitic mass] 28.8 pg 26.0 - 34.0 pg [facility] MCHC (RBC) [Mass/Vol] 34.8 g/dL 30.5 - 36.0 g/dL [facility] MCV (RBC) [Entitic vol] 82.9 fL 80.0 - 100.0 fL [facility] Monocytes (Bld) [#/Vol] 0.21 10*3/uL [facility] Monocytes/100 WBC (Bld) 7.2 % [facility] Neutrophils (Bld) [#/Vol] 1.89 10*3/uL [facility] Neutrophils/100 WBC (Bld) 64.5 % [facility] Nucleated RBC (Bld) [#/Vol] NINF [facility] Nucleated RBC/100 WBC (Bld) [Ratio] 0.0 % /100 WBC [facility] Platelet mean volume (Bld) [Entitic vol] 8.8 fL Low 9.0 - 12.7 fL [facility] Platelets (Bld) [#/Vol] 546 10*3/uL High [facility] RBC (Bld) [#/Vol] 4.16 10*6/uL 3.90 - 5.2 0 m/uL [facility] WBC (Bld) [#/Vol] 2.93 10*3/uL Low [facility] Basophils (Bld) [#/Vol] 10*3/uL Normal <0.11 [facility] Comment on above: Order Comment: Speci men Type: BLOOD SPECIMENOrdering Facility: [facility] Address: [address] [place] [address] Performed By: #### 5 7021-8 ####[facility] LABCLIA [id number] [place] [address] Basophils/100 WBC (Bld) 0.7 % Normal [facility] Comment on above: Order Comment: Speci men Type: BLOOD SPECIMENOrdering Facility: [facility] Address: [address] [place] [address] Performed By: #### 5 7021-8 ####[facility] LABCLIA [id number] [place] [address] Differential cell count method Nom (Bld) Auto Normal [facility] Comment on above: Order Comment: Speci men Type: BLOOD SPECIMENOrdering Facility: [facility] Address: [address] [place] [address] Performed By: #### 5 7021-8 ####[facility] LABCLIA [id number] [place] [address] Eosinophils (Bld) [#/Vol] 10*3/uL Normal <0.46 [facility] Comment on above: Order Comment: Speci men Type: BLOOD SPECIMENOrdering Facility: [facility] Address: [address] [place] [address] Performed By: #### 5 7021-8 ####[facility] LABCLIA [id number] [place] [address] Eosinophils/100 WBC (Bld) 0.3 % Normal [facility] Comment on above: Order Comment: Speci men Type: BLOOD SPECIMENOrdering Facility: [facility] Address: [address] [place] [address] Performed By: #### 5 7021-8 ####[facility] LABCLIA [id number] [place] [address] Erythrocyte distribution width (RBC) [Ratio] 15.9 % High 11.5-15.0 [facility] Comment on above: Order Comment: Speci men Type: BLOOD SPECIMENOrdering Facility: [facility] Address: [address] [place] [address] Performed By: #### 5 7021-8 ####[facility] LABCLIA [id number] [place] [address] Hematocrit (Bld) [Volume fraction] 34.5 % Low 36.0-46.0 [facility] Comment on above: Order Comment: Speci men Type: BLOOD SPECIMENOrdering Facility: [facility] Address: [address] [place] [address] Performed By: #### 5 7021-8 ####[facility] LABCLIA [id number] [place] [address] Hemoglobin (Bld) [Mass/Vol] 12.0 g/dL Normal 11.5-15.5 [facility] Comment on above: Order Comment: Speci men Type: BLOOD SPECIMENOrdering Facility: [facility] Address: [address] [place] [address] Performed By: #### 5 7021-8 ####[facility] LABCLIA [id number] [place] [address] Immature granulocytes (Bld) [#/Vol] 10*3/uL Normal <0.10 [facility] Comment on above: Order Comment: Speci men Type: BLOOD SPECIMENOrdering Facility: [facility] Address: [address] [place] [address] Performed By: #### 5 7021-8 ####[facility] LABCLIA [id number] [place] [address] Immature granulocytes/100 WBC (Bld) 0.7 % Normal [facility] Comment on above: Order Comment: Speci men Type: BLOOD SPECIMENOrdering Facility: [facility] Address: [address] [place] [address] Performed By: #### 5 7021-8 ####[facility] LABCLIA [id number] [place] [address] Lymphocytes (Bld) [#/Vol] 0.78 10*3/uL Low 1.00-4.00 [facility] Comment on above: Order Comment: Speci men Type: BLOOD SPECIMENOrdering Facility: [facility] Address: [address] [place] [address] Performed By: #### 5 7021-8 ####[facility] LABCLIA [id number] [place] [address] Lymphocytes/100 WBC (Bld) 26.6 % Normal [facility] Comment on above: Order Comment: Speci men Type: BLOOD SPECIMENOrdering Facility: [facility] Address: [address] [place] [address] Performed By: #### 5 7021-8 ####[facility] LABCLIA [id number] [place] [address] MCH (RBC) [Entitic mass] 28.8 pg Normal 26.0-34.0 [facility] Comment on above: Order Comment: Speci men Type: BLOOD SPECIMENOrdering Facility: [facility] Address: [address] [place] [address] Performed By: #### 5 7021-8 ####[facility] LABCLIA [id number] [place] [address] MCHC (RBC) [Mass/Vol] 34.8 g/dL Normal 30.5-36.0 [facility] Comment on above: Order Comment: Speci men Type: BLOOD SPECIMENOrdering Facility: [facility] Address: [address] [place] [address] Performed By: #### 5 7021-8 ####[facility] LABCLIA [id number] [place] [address] MCV (RBC) [Entitic vol] 82.9 fL Normal 80.0-100.0 [facility] Comment on above: Order Comment: Speci men Type: BLOOD SPECIMENOrdering Facility: [facility] Address: [address] [place] [address] Performed By: #### 5 7021-8 ####[facility] LABCLIA [id number] [place] [address] Monocytes (Bld) [#/Vol] 0.21 10*3/uL Normal <0.87 [facility] Comment on above: Order Comment: Speci men Type: BLOOD SPECIMENOrdering Facility: [facility] Address: [address] [place] [address] Performed By: #### 5 7021-8 ####[facility] LABCLIA [id number] [place] [address] Monocytes/100 WBC (Bld) 7.2 % Normal [facility] Comment on above: Order Comment: Speci men Type: BLOOD SPECIMENOrdering Facility: [facility] Address: [address] [place] [address] Performed By: #### 5 7021-8 ####[facility] LABCLIA [id number] [place] [address] Neutrophils (Bld) [#/Vol] 1.89 10*3/uL Normal 1.45-7.50 [facility] Comment on above: Order Comment: Speci men Type: BLOOD SPECIMENOrdering Facility: [facility] Address: [address] [place] [address] Performed By: #### 5 7021-8 ####[facility] LABCLIA [id number] [place] [address] Neutrophils/100 WBC (Bld) 64.5 % Normal [facility] Comment on above: Order Comment: Speci men Type: BLOOD SPECIMENOrdering Facility: [facility] Address: [address] [place] [address] Performed By: #### 5 7021-8 ####[facility] LABCLIA [id number] [place] [address] Nucleated RBC (Bld) [#/Vol] 10*3/uL Normal <0.01 [facility] Comment on above: Order Comment: Speci men Type: BLOOD SPECIMENOrdering Facility: [facility] Address: [address] [place] [address] Performed By: #### 5 7021-8 ####[facility] LABCLIA [id number] [place] [address] Nucleated RBC/100 WBC (Bld) [Ratio] 0.0 /100 WBC Normal [facility] Comment on above: Order Comment: Speci men Type: BLOOD SPECIMENOrdering Facility: [facility] Address: [address] [place] [address] Performed By: #### 5 7021-8 ####[facility] LABCLIA [id number] [place] [address] Platelet mean volume (Bld) [Entitic vol] 8.8 fL Low 9.0-12.7 [facility] Comment on above: Order Comment: Speci men Type: BLOOD SPECIMENOrdering Facility: [facility] Address: [address] [place] [address] Performed By: #### 5 7021-8 ####[facility] LABIA [id number] [place] [address] Platelets (Bld) [#/Vol] 546 10*3/uL High 150-400 [facility] Comment on above: Order Comment: Speci men Type: BLOOD SPECIMENOrdering Facility: [facility] Address: [address] [place] [address] Performed By: #### 5 7021-8 ####[facility] LABIA [id number] [place] [address] RBC (Bld) [#/Vol] 4.16 10*6/uL Normal 3.90-5.20 [facility] Comment on above: Order Comment: Speci men Type: BLOOD SPECIMENOrdering Facility: [facility] Address: [address] [place] [address] Performed By: #### 5 7021-8 ####[facility] LABIA [id number] [place] [address] WBC (Bld) [#/Vol] 2.93 10*3/uL Low 3.70-11.00 [facility] Comment on above: Order Comment: Speci men Type: BLOOD SPECIMENOrdering Facility: [facility] Address: [address] [place] [address] Performed By: #### 5 7021-8 ####[facility] LABIA [id number] [place] [address] Comprehensive metabolic 2000 panelOrdered By: Thea Ellison on 05-16-2024 Albumin [Mass/Vol] 3.9 g/dL 3.9 - 4.9 g/dL [facility] ALP [Catalytic activity/Vol] 68 U/L 34 - 123 U/L [facility] ALT [Catalytic activity/Vol] 63 U/L High 7 - 38 U/L [facility] Anion gap [Moles/Vol] 11 mmol/L 8 - 15 mmol/L [facility] AST [Catalytic activity/Vol] 44 U/L High 13 - 35 U/L [facility] Bilirubin [Mass/Vol] 0.3 mg/dL 0.2 - 1 .3 mg/dL [facility] Calcium [Mass/Vol] 9.4 mg/dL 8.5 - 10. 2 mg/dL [facility] Chloride [Moles/Vol] 94 mmol/L Low 98 - 10 7 mmol/L [facility] CO2 [Moles/Vol] 26 mmol/L 22 - 30 mmol/L [facility] Creatinine [Mass/Vol] 0.66 mg/dL 0.58 - 0.96 mg/dL [facility] GFR/1.73 sq M.predicted among non-blacks MDRD (S/P/Bld) [Vol rate/Area] 95 mL/min/{1.73_m2} - PINF [facility] Comment on above: Estimated Glomerular Filtration Rate (eGFR) is calculated using the 2020 CKD-EPI creatinine equation. This equation utilizes serum creatinine, sex, and age as parameters. The creatinine assay has traceable calibration to isotope dilution-mass spectrometry. Refer to KDIGO guidelines for clinical interpretation. In patients with unstable renal function, e.g. those with acute kidney injury, the eGFR may not accurately reflect actual GFR. Glucose [Mass/Vol] 143 mg/dL High 74 - 99 mg/dL [facility] Comment on above: The [place] Diab[employer] s Association (ADA) provides guidance for cutoff values for fasting glucose and random glucose. The ADA defines fasting as no caloric intake for at least 8 hours. Fasting plasma glucose results between 100 to 125 mg/dL indicate increased risk for diabetes (prediabetes). Fasting plasma glucose results greater than or equal to 126 mg/dL meet the criteria for diagnosis of diabetes. In the absence of unequivocal hyperglycemia, results should be confirmed by repeat testing. In a patient with classic symptoms of hyperglycemia or hyperglycemic crisis, random plasma glucose results greater than or equal to 200 mg/dL meet the criteria for diagnosis of diabetes. Reference: Standards of Medical Care in Diabetes 2016, [place] [employer]. Diabetes Care. 2016.39(Suppl 1). Interpretation and review of laboratory results Abnormal [facility] Potassium [Moles/Vol] 3.4 mmol/L Low 3.7 - 5.1 mmol/L [facility] Protein [Mass/Vol] 6.0 g/dL Low 6.3 - 8.0 g/dL [facility] Sodium [Moles/Vol] 131 mmol/L Low 136 - 144 mmol/L [facility] Urea nitrogen [Mass/Vol] 6 mg/dL Low 7 - 21 mg/dL [facility] Comprehensive metabolic 2000 panelon 05-16-2024 Albumin [Mass/Vol] 3.9 g/dL Normal 3.9-4.9 [facility] Comment on above: Order Comment: Speci men Type: BLOOD SPECIMENOrdering Facility: [facility] Address: [address] [place] [address] Performed By: #### 1 9123-9, 42614-3 ####[facility] LABCLIA [id number] [place] [address] ALP [Catalytic activity/Vol] 68 U/L Normal 34-123 [facility] Comment on above: Order Comment: Speci men Type: BLOOD SPECIMENOrdering Facility: [facility] Address: [address] [place] [address] Performed By: #### 1 9123-9, 64244-1 ####[facility] LABCLIA [id number] [place] [address] ALT [Catalytic activity/Vol] 63 U/L High 7-38 [facility] Comment on above: Order Comment: Speci men Type: BLOOD SPECIMENOrdering Facility: [facility] Address: [address] [place] [address] Performed By: #### 1 9123-9, 50436-7 ####[facility] LABCLIA [id number] [place] [address] Anion gap [Moles/Vol] 11 mmol/L Normal 8-15 [facility] Comment on above: Order Comment: Speci men Type: BLOOD SPECIMENOrdering Facility: [facility] Address: [address] [place], [place] [address] Performed By: #### 1 9123-9, 73171-4 ####[facility] LABCLIA [id number] [place] [address] AST [Catalytic activity/Vol] 44 U/L High 13-35 [facility] Comment on above: Order Comment: Speci men Type: BLOOD SPECIMENOrdering Facility: [facility] Address: [address] [place] [address] Performed By: #### 1 9123-9, 86527-7 ####[facility] LABCLIA [id number] [place] [address] Bilirubin [Mass/Vol] 0.3 mg/dL Normal 0.2-1.3 [facility] Comment on above: Order Comment: Speci men Type: BLOOD SPECIMENOrdering Facility: [facility] Address: [address] [place] [address] Performed By: #### 1 9123-9, 67741-6 ####[facility] LABCLIA [id number] [place] [address] Calcium [Mass/Vol] 9.4 mg/dL Normal 8.5-10.2 [facility] Comment on above: Order Comment: Speci men Type: BLOOD SPECIMENOrdering Facility: [facility] Address: [address] [place] [address] Performed By: #### 1 9123-9, 46325-7 ####[facility] LABCLIA [id number] [place] [address] Chloride [Moles/Vol] 94 mmol/L Low 98-107 [facility] Comment on above: Order Comment: Speci men Type: BLOOD SPECIMENOrdering Facility: [facility] Address: [address] [place] [address] Performed By: #### 1 9123-9, 00143-5 ####[facility] LABCLIA [id number] [place] [address] CO2 [Moles/Vol] 26 mmol/L Normal 22-30 [facility] Comment on above: Order Comment: Speci men Type: BLOOD SPECIMENOrdering Facility: [facility] Address: [address] [place] [address] Performed By: #### 1 9123-9, 24682-6 ####[facility] LABCLIA [id number] [place] [address] Creatinine [Mass/Vol] 0.66 mg/dL Normal 0.58-0.96 [facility] Comment on above: Order Comment: Speci men Type: BLOOD SPECIMENOrdering Facility: [facility] Address: [address] [place] [address] Performed By: #### 1 9123-9, 70244-2 ####[facility] LABIA [id number] [place] [address] Creatinine and Glomerular filtration rate.predicted panel (S/P/Bld) 95 mL/min/1.73m??? Normal >=60 [facility] Comment on above: Order Comment: Speci men Type: BLOOD SPECIMENOrdering Facility: [facility] Address: [address] [place] [address] Result Comment: Tosin mated Glomerular Filtration Rate (eGFR) is calculated using the 2020 CKD-EPI creatinine equation. This equation utilizes serum creatinine, sex, and age as parameters. The creatinine assay has traceable calibration to isotope dilution-mass spectrometry. Refer to KDIGO guidelines for clinical interpretation. In patients with unstable renal function, e.g. those with acute kidney injury, the eGFR may not accurately reflect actual GFR. Performed By: #### 1 9123-9, 02352-0 ####[facility] LABIA [id number] [place] [address] Glucose [Mass/Vol] 143 mg/dL High 74-99 [facility] Comment on above: Order Comment: Speci men Type: BLOOD SPECIMENOrdering Facility: [facility] Address: [address] [id number] Result Comment: The [place] Diabetes Association (ADA) provides guidance for cutoff values for fasting glucose and random glucose. The ADA defines fasting as no caloric intake for at least 8 hours. Fasting plasma glucose results between 100 to 125 mg/dL indicate increased risk for diabetes (prediabetes). Fasting plasma glucose results greater than or equal to 126 mg/dL meet the criteria for diagnosis of diabetes. In the absence of unequivocal hyperglycemia, results should be confirmed by repeat testing. In a patient with classic symptoms of hyperglycemia or hyperglycemic crisis, random plasma glucose results greater than or equal to 200 mg/dL meet the criteria for diagnosis of diabetes. Reference: Standards of Medical Care in Diabetes 2016, [place] [employer] Association. Diabetes Care. 2016.39(Suppl 1). Performed By: #### 1 9123-9, 46957-0 ####[facility] LABCLIA [id number] [place] [address] Potassium [Moles/Vol] 3.4 mmol/L Low 3.7-5.1 [facility] Comment on above: Order Comment: Speci men Type: BLOOD SPECIMENOrdering Facility: [facility] Address: [address] [place] [address] Performed By: #### 1 9123-9, ####[facility] LABCLIA [id number] [place] [address] Protein [Mass/Vol] 6.0 g/dL Low 6.3-8.0 [facility] Comment on above: Order Comment: Speci men Type: BLOOD SPECIMENOrdering Facility: [facility] Address: [address] [address] Performed By: #### 1 9123-9, ####[facility] LABCLIA [id number] [place] [address] Sodium [Moles/Vol] 131 mmol/L Low 136-144 [facility] Comment on above: Order Comment: Speci men Type: BLOOD SPECIMENOrdering Facility: [facility] Address: [address] [address] Performed By: #### 1 9123-9, 30165-5 ####[facility] LABCLIA [id number] [place] [address] Urea nitrogen [Mass/Vol] 6 mg/dL Low 7-21 [facility] Comment on above: Order Comment: Speci men Type: BLOOD SPECIMENOrdering Facility: [facility] Address: [address] [place] [address] Performed By: #### 1 9123-9, 01564-6 ####[facility] LABCLIA [id number] [place] [address] MAGNESIUMon 05-16-2024 Magnesium [Mass/Vol] 1.3 mg/dL Low 1.7 - 2 .3 mg/dL [facility] Magnesium SerPl-mCncon 05-16 Magnesium [Mass/Vol] 1.3 mg/dL Low 1.7-2.3 [facility] Comment on above: Order Comment: Speci men Type: BLOOD SPECIMENOrdering Facility: [facility] Address: [address] [place] [address] Performed By: #### 1 9123-9, 66341-2 ####[facility] LABCLIA [id number] [place] [address] Magnesium [Mass/Vol]on 05-16 Interpretation and review of laboratory results Abnormal [facility] CBC W Auto Differential pane l (Bld)on 05-09-2024 Basophils (Bld) [#/Vol] 0.04 10*3/uL Normal <0.11 [facility] Comment on above: Order Comment: Speci men Type: BLOOD SPECIMENOrdering Facility: [facility] Address: [address] [address] Performed By: #### 5 7021-8 ####[facility] LABCLIA [id number] [place] [address] Basophils/100 WBC (Bld) 0.8 % Normal [facility] Comment on above: Order Comment: Speci men Type: BLOOD SPECIMENOrdering Facility: [facility] Address: [address] [place] [address] Performed By: #### 5 7021-8 ####[facility] LABCLIA [id number] [place] [address] Differential cell count method Nom (Bld) Auto Normal [facility] Comment on above: Order Comment: Speci men Type: BLOOD SPECIMENOrdering Facility: [facility] Address: [address] [place] [address] Performed By: #### 5 7021-8 ####[facility] LABCLIA [id number] [place] [address] Eosinophils (Bld) [#/Vol] 0.06 10*3/uL Normal <0.46 [facility] Comment on above: Order Comment: Speci men Type: BLOOD SPECIMENOrdering Facility: [facility] Address: [address] [place] [address] Performed By: #### 5 7021-8 ####[facility] LABCLIA [id number] [place] [address] Eosinophils/100 WBC (Bld) 1.2 % Normal [facility] Comment on above: Order Comment: Speci men Type: BLOOD SPECIMENOrdering Facility: [facility] Address: [address] [place] [address] Performed By: #### 5 7021-8 ####[facility] LABCLIA [id number] [place] [address] Erythrocyte distribution width (RBC) [Ratio] 16.0 % High 11.5-15.0 [facility] Comment on above: Order Comment: Speci men Type: BLOOD SPECIMENOrdering Facility: [facility] Address: [address] [place] [address] Performed By: #### 5 7021-8 ####[facility] LABCLIA [id number] [place] [address] Hematocrit (Bld) [Volume fraction] 38.0 % Normal 36.0-46.0 [facility] Comment on above: Order Comment: Speci men Type: BLOOD SPECIMENOrdering Facility: [facility] Address: [address] [place] [address] Performed By: #### 5 7021-8 ####[facility] LABCLIA [id number] [place] [address] Hemoglobin (Bld) [Mass/Vol] 12.8 g/dL Normal 11.5-15.5 [facility] Comment on above: Order Comment: Speci men Type: BLOOD SPECIMENOrdering Facility: [facility] Address: [address] [place] [address] Performed By: #### 5 7021-8 ####[facility] LABCLIA [id number] [place] [address] Immature granulocytes (Bld) [#/Vol] 10*3/uL Normal <0.10 [facility] Comment on above: Order Comment: Speci men Type: BLOOD SPECIMENOrdering Facility: [facility] Address: [address] [place] [address] Performed By: #### 5 7021-8 ####[facility] LABCLIA [id number] [place] [address] Immature granulocytes/100 WBC (Bld) 0.4 % Normal [facility] Comment on above: Order Comment: Speci men Type: BLOOD SPECIMENOrdering Facility: [facility] Address: [address] [place] [address] Performed By: #### 5 7021-8 ####[facility] LABCLIA [id number] [place] [address] Lymphocytes (Bld) [#/Vol] 1.33 10*3/uL Normal 1.00-4.00 [facility] Comment on above: Order Comment: Speci men Type: BLOOD SPECIMENOrdering Facility: [facility] Address: [address] [place] [address] Performed By: #### 5 7021-8 ####[facility] LABCLIA [id number] [place] [address] Lymphocytes/100 WBC (Bld) 26.5 % Normal [facility] Comment on above: Order Comment: Speci men Type: BLOOD SPECIMENOrdering Facility: [facility] Address: [address] [place] [address] Performed By: #### 5 7021-8 ####[facility] LABCLIA [id number] [place] [address] MCH (RBC) [Entitic mass] 28.6 pg Normal 26.0-34.0 [facility] Comment on above: Order Comment: Speci men Type: BLOOD SPECIMENOrdering Facility: [facility] Address: [address] [place] [address] Performed By: #### 5 7021-8 ####[facility] LABCLIA [id number] [place] [address] MCHC (RBC) [Mass/Vol] 33.7 g/dL Normal 30.5-36.0 [facility] Comment on above: Order Comment: Speci men Type: BLOOD SPECIMENOrdering Facility: [facility] Address: [address] [place] [address] Performed By: #### 5 7021-8 ####[facility] LABCLIA [id number] [place] [address] MCV (RBC) [Entitic vol] 85.0 fL Normal 80.0-100.0 [facility] Comment on above: Order Comment: Speci men Type: BLOOD SPECIMENOrdering Facility: [facility] Address: [address] [place] [address] Performed By: #### 5 7021-8 ####[facility] LABCLIA [id number] [place] [address] Monocytes (Bld) [#/Vol] 0.75 10*3/uL Normal <0.87 [facility] Comment on above: Order Comment: Speci men Type: BLOOD SPECIMENOrdering Facility: [facility] Address: [address] [place] [address] Performed By: #### 5 7021-8 ####[facility] LABCLIA [id number] [place] [address] Monocytes/100 WBC (Bld) 15.0 % Normal [facility] Comment on above: Order Comment: Speci men Type: BLOOD SPECIMENOrdering Facility: [facility] Address: [address] [place] [address] Performed By: #### 5 7021-8 ####[facility] LABCLIA [id number] [place] [address] Neutrophils (Bld) [#/Vol] 2.81 10*3/uL Normal 1.45-7.50 [facility] Comment on above: Order Comment: Speci men Type: BLOOD SPECIMENOrdering Facility: [facility] Address: [address] [place] [address] Performed By: #### 5 7021-8 ####[facility] LABCLIA [id number] [place] [address] Neutrophils/100 WBC (Bld) 56.1 % Normal [facility] Comment on above: Order Comment: Speci men Type: BLOOD SPECIMENOrdering Facility: [facility] Address: [address] [place] [address] Performed By: #### 5 7021-8 ####[facility] LABCLIA [id number] [place] [address] Nucleated RBC (Bld) [#/Vol] 10*3/uL Normal <0.01 [facility] Comment on above: Order Comment: Speci men Type: BLOOD SPECIMENOrdering Facility: [facility] Address: [address] [place] [address] Performed By: #### 5 7021-8 ####[facility] LABCLIA [id number] [place] [address] Nucleated RBC/100 WBC (Bld) [Ratio] 0.0 /100 WBC Normal [facility] Comment on above: Order Comment: Speci men Type: BLOOD SPECIMENOrdering Facility: [facility] Address: [address] [place] [address] Performed By: #### 5 7021-8 ####[facility] LABCLIA [id number] [place] [address] Platelet mean volume (Bld) [Entitic vol] 8.7 fL Low 9.0-12.7 [facility] Comment on above: Order Comment: Speci men Type: BLOOD SPECIMENOrdering Facility: [facility] Address: [address] [place] [address] Performed By: #### 5 7021-8 ####[facility] LABIA [id number] [place] [address] Platelets (Bld) [#/Vol] 459 10*3/uL High 150-400 [facility] Comment on above: Order Comment: Speci men Type: BLOOD SPECIMENOrdering Facility: [facility] Address: [address] [place] [address] Performed By: #### 5 7021-8 ####[facility] LABCLIA [id number] [place] [address] RBC (Bld) [#/Vol] 4.47 10*6/uL Normal 3.90-5.20 [facility] Comment on above: Order Comment: Speci men Type: BLOOD SPECIMENOrdering Facility: [facility] Address: [address] [place] [address] Performed By: #### 5 7021-8 ####[facility] LABIA [id number] [place] [address] WBC (Bld) [#/Vol] 5.01 10*3/uL Normal 3.70-11.00 [facility] Comment on above: Order Comment: Speci men Type: BLOOD SPECIMENOrdering Facility: [facility] Address: [address] [place] [address] Performed By: #### 5 7021-8 ####[facility] LABIA [id number] [place] [address] CNOVSPon 05-09-2024 CNOVSP Visit (SP) Office (HEMASA) CYNTHIAGordySVETLANA Mackey ([id number]) 1955 F Date Time Provider Department 05/09/24 9:30 AM DORIS DUPREE During your visit today, we recorded the following information about you: Temperature Pulse Respiration Blood pressure 97.6 degrees 99/minute 16/minute 100/59 Weight Height 46 kg 1.507 m Kamille French APRN.[facility] 05/09/2024 11:47 AM Signed NAME: Svetlana Adrian CLINIC NO.: [id number] DATE OF SERVICE: May 08, 2024 (Sandi) Some elements in this clinic note that are critical to medical decision making have been carefully reviewed and included from a prior clinic note dated: April 25, 2024 (Sagar) Referring Provider: Lin Dalton MD Additional Clinicians involved in Svetlana Adrian's care: Alejandro Ware DIAGNOSIS: Muscle invasive bladder Ca. ASSESSMENT: 68 year old woman with chronic tobacco use and muscle invasive bladder cancer s/p TURBT with Dr. Dalton mid-January 2024, with no evidence of metastatic disease on staging CT's done in mid-March 2024. Historically, she has preserved kidney function and should be able to tolerate Cisplatin without too much difficulty in the neoadjuvant setting. PLAN: Treatment today for C2D1 RTC for C3D1 in 3 weeks (05/30) Labs same day - HPI: CASE HISTORY: Reverse Chronological Order 04/18/2024-Current - GemCis D1, 8 q 21 days 03/28/2024 - CT Chest: Moderate emphysematous changes/COPD. No acute infiltrates or suspicious nodules to suggest metastatic disease. Mild left hydronephrosis incompletely included on today's study 01/30/2024 - CT A/P: No bowel obstruction, ileus, or appreciable inflammatory changes, distal colonic diverticulosis, but no appreciable diverticulitis. Slight wall thickening of urinary bladder. Cystitis? Marked atherosclerotic disease of aorta an branches, but no aneurysm or occlusion 01/23/2024 - XR Urethrogram: Left retrograde pyelogram with no filling defect or mass observed 01/23/2024 - Bladder mass, transurethral resection: Dr. 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 Recommend cystoscopy. No obstructive uropathy. 01/13/2024 - CT A/P: for hematuria Left bladder wall masslike thickening concerning for malignancy. Recommend urology consultation. Colonic diverticulosis Updated Visit, May 09, 2024: Patient is here today for consideration of C2D1 of Gemzar/Cisplatin. Her performance status is 0, and she is tolerating chemotherapy well. Patient denies: weakness, fever, chills, sweats, weight loss, mouth sores, vomiting, diarrhea, constipation, athralgias, myalgias, MARCUS, Edema. Having increased fatigue since starting chemotherapy. Met with belt brander, trying to eat better. Weight is down a few pounds since last visit. Having some peripheral neuropathy in bilateral fingers and toes. Comes and goes, not getting any worse. Patient is taking Gabapentin. Encouraged to take vitamin B-complex and Alpha Lipoic Acid. She is taking stool softeners for constipation- Constipation has improved. Trying to quit smoking- having a difficult time. Continues to have a chronic cough and SOB with exertion. Has intermittent nausea- Takes Zofran and that is helpful. Encouraged good mouth care with baking soda. Updated Visit, April 25, 2024: Svetlana returns with Royer today for treatment. She began GemCis on 04/18, has developed nausea but overall is tolerating well. She endorses continuing to smoke although intends to quit soon. Her appetite is not that great, however she has gained a pound. Initial Visit, April 04, 2024: Svetlana Adrian presents today for a Hematology and Oncology evaluation. She is joined by her , Royer. She is a 68 year old female who was found to have a bladder mass on imaging in January. TURBT confirmed malignancy with lamina propria and muscularis propria invasion. She has met with Dr. Ware to consider her surgical options. Anticipate moving forward with neoadjuvant chemotherapy with gemcitabine + cisplatin vs. Dickenson / Carbo She denies use of supplemental oxygen although she feels she could use it after walking long distances. FMHx of bladder cancer in her mother and prostate cancer in her brother. - REVIEW OF SYSTEMS Per HPI and otherwise negative by full review of organ systems. - ECOG PERFORMANCE STATUS: 1- Restricted in physically strenuous activity. Carries out light duty. PHYSICAL EXAMINATION: Vitals: BP 100/59 Pulse 99 Temp (Src) (more content not included)... Normal [facility] Comprehensive metabolic 2000 panelon 05-09-2024 Albumin [Mass/Vol] 4.3 g/dL Normal 3.9-4.9 [facility] Comment on above: Order Comment: Speci men Type: BLOOD SPECIMENOrdering Facility: [facility] Address: [address] [place] [address] Performed By: #### 1 23-9, 19050-4 ####[facility] LABCLIA [id number] [place] [address] ALP [Catalytic activity/Vol] 81 U/L Normal 34-123 [facility] Comment on above: Order Comment: Speci men Type: BLOOD SPECIMENOrdering Facility: [facility] Address: [address] [place] [address] Performed By: #### 1 23-9, ####[facility] LABCLIA [id number] [place] [address] ALT [Catalytic activity/Vol] 41 U/L High 7-38 [facility] Comment on above: Order Comment: Speci men Type: BLOOD SPECIMENOrdering Facility: [facility] Address: [address] [place] [address] Performed By: #### 1 23-9, 57587-3 ####[facility] LABCLIA [id number] [place] [address] Anion gap [Moles/Vol] 10 mmol/L Normal 8-15 [facility] Comment on above: Order Comment: Speci men Type: BLOOD SPECIMENOrdering Facility: [facility] Address: [address] [place] [address] Performed By: #### 1 23-9, ####[facility] LABCLIA [id number] [place] [address] AST [Catalytic activity/Vol] 28 U/L Normal 13-35 [facility] Comment on above: Order Comment: Speci men Type: BLOOD SPECIMENOrdering Facility: [facility] Address: [address] [place] [address] Performed By: #### 1 239, 79326-1 ####[facility] LABCLIA [id number] [place] [address] Bilirubin [Mass/Vol] 0.3 mg/dL Normal 0.2-1.3 [facility] Comment on above: Order Comment: Speci men Type: BLOOD SPECIMENOrdering Facility: [facility] Address: [address] [place] [address] Performed By: #### 1 9123-9, 50128-0 ####[facility] LABCLIA [id number] [place] [address] Calcium [Mass/Vol] 10.2 mg/dL Normal 8.5-10.2 [facility] Comment on above: Order Comment: Speci men Type: BLOOD SPECIMENOrdering Facility: [facility] Address: [address] [place] [address] Performed By: #### 1 9123-9, 03061-8 ####[facility] LABCLIA [id number] [place] [address] Chloride [Moles/Vol] 95 mmol/L Low 98-107 [facility] Comment on above: Order Comment: Speci men Type: BLOOD SPECIMENOrdering Facility: [facility] Address: [address] [place] [address] Performed By: #### 1 9123-9, 73640-0 ####[facility] LABCLIA [id number] [place] [address] CO2 [Moles/Vol] 29 mmol/L Normal 22-30 [facility] Comment on above: Order Comment: Speci men Type: BLOOD SPECIMENOrdering Facility: [facility] Address: [address] [place] [address] Performed By: #### 1 9123-9, 00416-9 ####[facility] LABCLIA [id number] [place] [address] Creatinine [Mass/Vol] 0.94 mg/dL Normal 0.58-0.96 [facility] Comment on above: Order Comment: Speci men Type: BLOOD SPECIMENOrdering Facility: [facility] Address: [address] [address] Performed By: #### 1 9123-9, 87835-5 ####[facility] LABCLIA [id number] [place] [address] Creatinine and Glomerular filtration rate.predicted panel (S/P/Bld) 65 mL/min/1.73m??? Normal >=60 [facility] Comment on above: Order Comment: Shantel walters Type: BLOOD SPECIMENOrdering Facility: [facility] Address: [address] [place] [address] Result Comment: Tosin mated Glomerular Filtration Rate (eGFR) is calculated using the 2020 CKD-EPI creatinine equation. This equation utilizes serum creatinine, sex, and age as parameters. The creatinine assay has traceable calibration to isotope dilution-mass spectrometry. Refer to KDIGO guidelines for clinical interpretation. In patients with unstable renal function, e.g. those with acute kidney injury, the eGFR may not accurately reflect actual GFR. Performed By: #### 1 9123-9, 78651-6 ####[facility] LABCLIA [id number] [place] [address] Glucose [Mass/Vol] 135 mg/dL High 74-99 [facility] Comment on above: Order Comment: Shantel walters Type: BLOOD SPECIMENOrdering Facility: [facility] Address: [address] [place] [address] Result Comment: The [place] Diabetes [employer] (ADA) provides guidance for cutoff values for fasting glucose and random glucose. The ADA defines fasting as no caloric intake for at least 8 hours. Fasting plasma glucose results between 100 to 125 mg/dL indicate increased risk for diabetes (prediabetes). Fasting plasma glucose results greater than or equal to 126 mg/dL meet the criteria for diagnosis of diabetes. In the absence of unequivocal hyperglycemia, results should be confirmed by repeat testing. In a patient with classic symptoms of hyperglycemia or hyperglycemic crisis, random plasma glucose results greater than or equal to 200 mg/dL meet the criteria for diagnosis of diabetes. Reference: Standards of Medical Care in Diabetes 2016, [place] [employer]. Diabetes Care. 2016.39(Suppl 1). Performed By: #### 1 9123-9, 67617-4 ####[facility] LABCLIA [id number] [place] [address] Potassium [Moles/Vol] 4.6 mmol/L Normal 3.7-5.1 [facility] Comment on above: Order Comment: Speci men Type: BLOOD SPECIMENOrdering Facility: [facility] Address: [address] [place] [address] Performed By: #### 1 23-9, 26598-6 ####[facility] LABCLIA [id number] [place] [address] Protein [Mass/Vol] 6.5 g/dL Normal 6.3-8.0 [facility] Comment on above: Order Comment: Speci men Type: BLOOD SPECIMENOrdering Facility: [facility] Address: [address] [place] [address] Performed By: #### 1 239, 85332-5 ####[facility] LABCLIA [id number] [place] [address] Sodium [Moles/Vol] 134 mmol/L Low 136-144 [facility] Comment on above: Order Comment: Speci men Type: BLOOD SPECIMENOrdering Facility: [facility] Address: [address] [place] [address] Performed By: #### 1 239, 17870-4 ####[facility] LABCLIA [id number] [place] [address] Urea nitrogen [Mass/Vol] 11 mg/dL Normal 7-21 [facility] Comment on above: Order Comment: Speci men Type: BLOOD SPECIMENOrdering Facility: [facility] Address: [address] [place] [address] Performed By: #### 1 9123-9, 19768-3 ####[facility] LABCLIA [id number] [place] [address] MAGNESIUMOrdered By: Dante hyde on 05-09-2024 Magnesium [Mass/Vol] 1.4 mg/dL Low 1.7 - 2 .3 mg/dL [facility] Magnesium Carlos 05-09 Magnesium [Mass/Vol] 1.4 mg/dL Low 1.7-2.3 [facility] Comment on above: Order Comment: Speci men Type: BLOOD SPECIMENOrdering Facility: [facility] Address: [address] [place] [address] Performed By: #### 1 9123-9, 33183-9 ####[facility]ITALFR[facility]IS[facility] LABCLIA [id number] [place] [address] Magnesium [Mass/Vol]Ordered By: Dante Brooks on 05-09-2024 Interpretation and review of laboratory results Abnormal [facility] CBC W Auto Differential pane l (Bld)on 04-25-2024 Basophils (Bld) [#/Vol] 10*3/uL Normal <0.11 [facility] Comment on above: Order Comment: Speci men Type: BLOOD SPECIMENOrdering Facility: [facility] Address: [address] [place] [address] Performed By: #### 5 7021-8 ####[facility]ITAL[facility]IS[facility] LABCLIA [id number] [place] [address] Basophils/100 WBC (Bld) 0.5 % Normal [facility] Comment on above: Order Comment: Speci men Type: BLOOD SPECIMENOrdering Facility: [facility] Address: [address] [place] [address] Performed By: #### 5 7021-8 ####[facility] LABCLIA [id number] [place] [address] Differential cell count method Nom (Bld) Auto Normal [facility] Comment on above: Order Comment: Speci men Type: BLOOD SPECIMENOrdering Facility: [facility] Address: [address] [place] [address] Performed By: #### 5 7021-8 ####[facility] LABCLIA [id number] [place] [address] Eosinophils (Bld) [#/Vol] 0.05 10*3/uL Normal <0.46 [facility] Comment on above: Order Comment: Speci men Type: BLOOD SPECIMENOrdering Facility: [facility] Address: [address] [place] [address] Performed By: #### 5 7021-8 ####[facility] LABCLIA [id number] [place] [address] Eosinophils/100 WBC (Bld) 1.2 % Normal [facility] Comment on above: Order Comment: Speci men Type: BLOOD SPECIMENOrdering Facility: [facility] Address: [address] [place] [address] Performed By: #### 5 7021-8 ####[facility] LABIA [id number] [place] [address] Erythrocyte distribution width (RBC) [Ratio] 14.7 % Normal 11.5-15.0 [facility] Comment on above: Order Comment: Speci men Type: BLOOD SPECIMENOrdering Facility: [facility] Address: [address] [place] [address] Performed By: #### 5 7021-8 ####[facility] LABCLIA [id number] [place] [address] Hematocrit (Bld) [Volume fraction] 37.4 % Normal 36.0-46.0 [facility] Comment on above: Order Comment: Speci men Type: BLOOD SPECIMENOrdering Facility: [facility] Address: [address] [place] [address] Performed By: #### 5 7021-8 ####[facility] LABIA [id number] [place] [address] Hemoglobin (Bld) [Mass/Vol] 13.0 g/dL Normal 11.5-15.5 [facility] Comment on above: Order Comment: Speci men Type: BLOOD SPECIMENOrdering Facility: [facility] Address: [address] [place] [address] Performed By: #### 5 7021-8 ####[facility] LABCLIA [id number] [place] [address] Immature granulocytes (Bld) [#/Vol] 10*3/uL Normal <0.10 [facility] Comment on above: Order Comment: Speci men Type: BLOOD SPECIMENOrdering Facility: [facility] Address: [address] [place] [address] Performed By: #### 5 7021-8 ####[facility] LABCLIA [id number] [place] [address] Immature granulocytes/100 WBC (Bld) 0.2 % Normal [facility] Comment on above: Order Comment: Speci men Type: BLOOD SPECIMENOrdering Facility: [facility] Address: [address] [place] [address] Performed By: #### 5 7021-8 ####[facility] LABCLIA [id number] [place] [address] Lymphocytes (Bld) [#/Vol] 0.75 10*3/uL Low 1.00-4.00 [facility] Comment on above: Order Comment: Speci men Type: BLOOD SPECIMENOrdering Facility: [facility] Address: [address] [place] [address] Performed By: #### 5 7021-8 ####[facility] LABCLIA [id number] [place] [address] Lymphocytes/100 WBC (Bld) 18.6 % Normal [facility] Comment on above: Order Comment: Speci men Type: BLOOD SPECIMENOrdering Facility: [facility] Address: [address] [place] [address] Performed By: #### 5 7021-8 ####[facility] LABCLIA [id number] [place] [address] MCH (RBC) [Entitic mass] 28.3 pg Normal 26.0-34.0 [facility] Comment on above: Order Comment: Speci men Type: BLOOD SPECIMENOrdering Facility: [facility] Address: [address] [place] [address] Performed By: #### 5 7021-8 ####[facility] LABCLIA [id number] [place] [address] MCHC (RBC) [Mass/Vol] 34.8 g/dL Normal 30.5-36.0 [facility] Comment on above: Order Comment: Speci men Type: BLOOD SPECIMENOrdering Facility: [facility] Address: [address] [place] [address] Performed By: #### 5 7021-8 ####[facility] LABIA [id number] [place] [address] MCV (RBC) [Entitic vol] 81.3 fL Normal 80.0-100.0 [facility] Comment on above: Order Comment: Speci men Type: BLOOD SPECIMENOrdering Facility: [facility] Address: [address] [place] [address] Performed By: #### 5 7021-8 ####[facility] LABCLIA [id number] [place] [address] Monocytes (Bld) [#/Vol] 0.32 10*3/uL Normal <0.87 [facility] Comment on above: Order Comment: Speci men Type: BLOOD SPECIMENOrdering Facility: [facility] Address: [address] [place] [address] Performed By: #### 5 7021-8 ####[facility] LABCLIA [id number] [place] [address] Monocytes/100 WBC (Bld) 7.9 % Normal [facility] Comment on above: Order Comment: Speci men Type: BLOOD SPECIMENOrdering Facility: [facility] Address: [address] [place] [address] Performed By: #### 5 7021-8 ####[facility] LABCLIA [id number] [place] [address] Neutrophils (Bld) [#/Vol] 2.89 10*3/uL Normal 1.45-7.50 [facility] Comment on above: Order Comment: Speci men Type: BLOOD SPECIMENOrdering Facility: [facility] Address: [address] [place] [address] Performed By: #### 5 7021-8 ####[facility] LABCLIA [id number] [place] [address] Neutrophils/100 WBC (Bld) 71.6 % Normal [facility] Comment on above: Order Comment: Speci men Type: BLOOD SPECIMENOrdering Facility: [facility] Address: [address] [place] [address] Performed By: #### 5 7021-8 ####[facility] LABIA [id number] [place] [address] Nucleated RBC (Bld) [#/Vol] 10*3/uL Normal <0.01 [facility] Comment on above: Order Comment: Speci men Type: BLOOD SPECIMENOrdering Facility: [facility] Address: [address] [place] [address] Performed By: #### 5 7021-8 ####[facility] LABCLIA [id number] [place] [address] Nucleated RBC/100 WBC (Bld) [Ratio] 0.0 /100 WBC Normal [facility] Comment on above: Order Comment: Speci men Type: BLOOD SPECIMENOrdering Facility: [facility] Address: [address] [place] [address] Performed By: #### 5 7021-8 ####[facility] LABCLIA [id number] [place] [address] Platelet mean volume (Bld) [Entitic vol] 8.3 fL Low 9.0-12.7 [facility] Comment on above: Order Comment: Speci men Type: BLOOD SPECIMENOrdering Facility: [facility] Address: [address] [place] [address] Performed By: #### 5 7021-8 ####[facility] LABIA [id number] [place] [address] Platelets (Bld) [#/Vol] 241 10*3/uL Normal 150-400 [facility] Comment on above: Order Comment: Speci men Type: BLOOD SPECIMENOrdering Facility: [facility] Address: [address] [place] [address] Performed By: #### 5 7021-8 ####[facility] LABIA [id number] [place] [address] RBC (Bld) [#/Vol] 4.60 10*6/uL Normal 3.90-5.20 [facility] Comment on above: Order Comment: Speci men Type: BLOOD SPECIMENOrdering Facility: [facility] Address: [address] [place] [address] Performed By: #### 5 7021-8 ####[facility] LABIA [id number] [place] [address] WBC (Bld) [#/Vol] 4.04 10*3/uL Normal 3.70-11.00 [facility] Comment on above: Order Comment: Speci men Type: BLOOD SPECIMENOrdering Facility: [facility] Address: [address] [place] [address] Performed By: #### 5 7021-8 ####[facility] LABIA [id number] [place] [address] CNOVSPon 04-25-2024 CNOVSP Visit (SP) Office (HEMASA) SVETLANA ADRIAN ([id number]) 1955 F Date Time Provider Department 04/25/24 8:45 AM LEE DUNN During your visit today, we recorded the following information about you: Temperature Pulse Respiration Blood pressure 97.1 degrees 76/minute 18/minute 123/83 Weight 48.5 kg Lee Dunn MD 04/26/2024 8:40 AM Signed NAME: Svetlana Adrian CLINIC NO.: [id number] DATE OF SERVICE: April 25, 2024 (Sagar) Some elements in this clinic note that are critical to medical decision making have been carefully reviewed and included from a prior clinic note dated: April 04, 2024 (Sagar) Referring Provider: Lin Dalton MD Additional Clinicians involved in Svetlana Adrian's care: Alejandro Ware DIAGNOSIS: Muscle invasive bladder Ca. ASSESSMENT: 68 year old woman with chronic tobacco use and muscle invasive bladder cancer s/p TURBT with Dr. Dalton mid-January 2024, with no evidence of metastatic disease on staging CT's done in mid-March 2024. Historically, she has preserved kidney function and should be able to tolerate Cisplatin without too much difficulty in the neoadjuvant setting. PLAN: GemCis C1 D8 today (Held Cis last week) Will give 1/2 dose today and then give Cisplatin D1 and 8 at 25 mg/m2 each day Follow up with belt brander RTC for C2 D1 in 2 weeks (05/09) Labs same day Can see Doris RTC with me for C3 in 5 weeks Labs same day - HPI: CASE HISTORY: Reverse Chronological Order 04/18/2024-Current - GemCis D1, 8 q 21 days 03/28/2024 - CT Chest: Moderate emphysematous changes/COPD. No acute infiltrates or suspicious nodules to suggest metastatic disease. Mild left hydronephrosis incompletely included on today's study 01/30/2024 - CT A/P: No bowel obstruction, ileus, or appreciable inflammatory changes, distal colonic diverticulosis, but no appreciable diverticulitis. Slight wall thickening of urinary bladder. Cystitis? Marked atherosclerotic disease of aorta an branches, but no aneurysm or occlusion 01/23/2024 - XR Urethrogram: Left retrograde pyelogram with no filling defect or mass observed 01/23/2024 - Bladder mass, transurethral resection: Dr. 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 Recommend cystoscopy. No obstructive uropathy. 01/13/2024 - CT A/P: for hematuria Left bladder wall masslike thickening concerning for malignancy. Recommend urology consultation. Colonic diverticulosis Updated Visit, April 25, 2024: Svetlana returns with Royer today for treatment. She began GemCis on 04/18, has developed nausea but overall is tolerating well. She endorses continuing to smoke although intends to quit soon. Her appetite is not that great, however she has gained a pound. Initial Visit, April 04, 2024: Svetlana Adrian presents today for a Hematology and Oncology evaluation. She is joined by her , Royer. She is a 68 year old female who was found to have a bladder mass on imaging in January. TURBT confirmed malignancy with lamina propria and muscularis propria invasion. She has met with Dr. Ware to consider her surgical options. Anticipate moving forward with neoadjuvant chemotherapy with gemcitabine + cisplatin vs. Dickenson / Carbo She denies use of supplemental oxygen although she feels she could use it after walking long distances. FMHx of bladder cancer in her mother and prostate cancer in her brother. - REVIEW OF SYSTEMS Per HPI and otherwise negative by full review of organ systems. - ECOG PERFORMANCE STATUS: 1- Restricted in physically strenuous activity. Carries out light duty. PHYSICAL EXAMINATION: Vitals: BP 123/83 Pulse 76 Temp (Src) 97.1 (Temporal) Resp 18 Wt 106 lb 14.8 oz (48.5kg) SpO2 93% Body surface area is 1.42 meters squared. Exam limited to gross visualization where appropriate. Gen.: This is an age-appropriate patient in no acute distress. Head: Appears atraumatic with no visible lesions. Eyes: Pupils equally round and reactive to light, extraocular muscles are intact. Neck: Supple. Respiratory: Appears to be respiring comfortably. Neurologic: Nonfocal to gross visualization. Alert and oriented ?3. Psychiatric: No evidence of inappropriate anxiety or depression. Skin: Visible areas of skin without rash, lesions, wounds or petechiae. - ALLERGIES: ALLERGIES No Known Allergi (more content not included)... Normal [facility] Comprehensive metabolic 2000 panelon 04-25-2024 Albumin [Mass/Vol] 4.1 g/dL Normal 3.9-4.9 [facility] Comment on above: Order Comment: Speci men Type: BLOOD SPECIMENOrdering Facility: [facility] Address: [address] [place] [address] Performed By: #### 2 4323-8 ####ALYSSA [facility] LABCLIA [id number] [place] [address] ALP [Catalytic activity/Vol] 71 U/L Normal 34-123 [facility] Comment on above: Order Comment: Speci men Type: BLOOD SPECIMENOrdering Facility: [facility] Address: [address] [place] [address] Performed By: #### 2 4323-8 ####[facility] LABCLIA [id number] [place] [address] ALT [Catalytic activity/Vol] 36 U/L Normal 7-38 [facility] Comment on above: Order Comment: Speci men Type: BLOOD SPECIMENOrdering Facility: [facility] Address: [address] [place] [address] Performed By: #### 2 4323-8 ####[facility] LABCLIA [id number] [place] [address] Anion gap [Moles/Vol] 12 mmol/L Normal 8-15 [facility] Comment on above: Order Comment: Speci men Type: BLOOD SPECIMENOrdering Facility: [facility] Address: [address] [place] [address] Performed By: #### 2 4323-8 ####[facility] LABCLIA [id number] [place] [address] AST [Catalytic activity/Vol] 29 U/L Normal 13-35 [facility] Comment on above: Order Comment: Speci men Type: BLOOD SPECIMENOrdering Facility: [facility] Address: [address] [place] [address] Performed By: #### 2 4323-8 ####[facility] LABCLIA [id number] [place] [address] Bilirubin [Mass/Vol] 0.4 mg/dL Normal 0.2-1.3 [facility] Comment on above: Order Comment: Speci men Type: BLOOD SPECIMENOrdering Facility: [facility] Address: [address] [place] [address] Performed By: #### 2 4323-8 ####[facility] LABCLIA [id number] [place] [address] Calcium [Mass/Vol] 9.8 mg/dL Normal 8.5-10.2 [facility] Comment on above: Order Comment: Speci men Type: BLOOD SPECIMENOrdering Facility: [facility] Address: [address] [place] [address] Performed By: #### 2 4323-8 ####[facility] LABCLIA [id number] [place] [address] Chloride [Moles/Vol] 81 mmol/L Low 98-107 [facility] Comment on above: Order Comment: Speci men Type: BLOOD SPECIMENOrdering Facility: [facility] Address: [address] [place] [address] Performed By: #### 2 4323-8 ####[facility] LABCLIA [id number] [place] [address] CO2 [Moles/Vol] 29 mmol/L Normal 22-30 [facility] Comment on above: Order Comment: Speci men Type: BLOOD SPECIMENOrdering Facility: [facility] Address: [address] [place] [address] Performed By: #### 2 4323-8 ####[facility] LABCLIA [id number] [place] [address] Creatinine [Mass/Vol] 0.68 mg/dL Normal 0.58-0.96 [facility] Comment on above: Order Comment: Speci men Type: BLOOD SPECIMENOrdering Facility: [facility] Address: [address] [place], [place] [address] Performed By: #### 2 4323-8 ####[facility] LABCLIA [id number] [place] [address] Creatinine and Glomerular filtration rate.predicted panel (S/P/Bld) 94 mL/min/1.73m??? Normal >=60 [facility] Comment on above: Order Comment: Speci men Type: BLOOD SPECIMENOrdering Facility: [facility] Address: [address] [address] Result Comment: Tosin mated Glomerular Filtration Rate (eGFR) is calculated using the 2020 CKD-EPI creatinine equation. This equation utilizes serum creatinine, sex, and age as parameters. The creatinine assay has traceable calibration to isotope dilution-mass spectrometry. Refer to KDIGO guidelines for clinical interpretation. In patients with unstable renal function, e.g. those with acute kidney injury, the eGFR may not accurately reflect actual GFR. Performed By: #### 2 4323-8 ####[facility] LABCLIA [id number] [place] [address] Glucose [Mass/Vol] 128 mg/dL High 74-99 [facility] Comment on above: Order Comment: Shantel walters Type: BLOOD SPECIMENOrdering Facility: [facility] Address: [address] [place] [address] Result Comment: The [place] Diabetes Association (ADA) provides guidance for cutoff values for fasting glucose and random glucose. The ADA defines fasting as no caloric intake for at least 8 hours. Fasting plasma glucose results between 100 to 125 mg/dL indicate increased risk for diabetes (prediabetes). Fasting plasma glucose results greater than or equal to 126 mg/dL meet the criteria for diagnosis of diabetes. In the absence of unequivocal hyperglycemia, results should be confirmed by repeat testing. In a patient with classic symptoms of hyperglycemia or hyperglycemic crisis, random plasma glucose results greater than or equal to 200 mg/dL meet the criteria for diagnosis of diabetes. Reference: Standards of Medical Care in Diabetes 2016, [place] [employer]. Diabetes Care. 2016.39(Suppl 1). Performed By: #### 2 4323-8 ####[facility] LABCLIA [id number] [place] [address] Potassium [Moles/Vol] 3.4 mmol/L Low 3.7-5.1 [facility] Comment on above: Order Comment: Shantel walters Type: BLOOD SPECIMENOrdering Facility: [facility] Address: [address] [address] Performed By: #### 2 4323-8 ####[facility] LABCLIA [id number] [place] [address] Protein [Mass/Vol] 6.5 g/dL Normal 6.3-8.0 [facility] Comment on above: Order Comment: Speci men Type: BLOOD SPECIMENOrdering Facility: [facility] Address: [address] [place] [address] Performed By: #### 2 4323-8 ####[facility] LABIA [id number] [place] [address] Sodium [Moles/Vol] 122 mmol/L Low 136-144 [facility] Comment on above: Order Comment: Speci men Type: BLOOD SPECIMENOrdering Facility: [facility] Address: [address] [place] [address] Result Comment: RECH ECKED JT Performed By: #### 2 4323-8 ####[facility] LABIA [id number] [place] [address] Urea nitrogen [Mass/Vol] 8 mg/dL Normal 7-21 [facility] Comment on above: Order Comment: Speci men Type: BLOOD SPECIMENOrdering Facility: [facility] Address: [address] [place] [address] Performed By: #### 2 4323-8 ####[facility] LABIA [id number] [place] [address] Seth 04-24-2024 CNPN Telephone (HEMASA) SVETLANA ADRIAN ([id number]) 1955 F Date Time Provider Department 04/24/24 LEE DUNN During your visit today, we recorded the following information about you: Gabrielle Li MA 04/24/2024 9:11 AM Signed Patient has an OTV appointment on 04/25. Labs drawn 04/18. Please place lab orders if needed. Gabrielle Li MA Allergies As of Date: 04/24/2024 (No Known Allergies) Date Reviewed: 04/18/2024 Reviewed by: Katia Goss RD - Fully Assessed Reason for Visit: Lab Orders [7038] Primary Visit Diagnosis:Malignant neoplasm of overlapping sites of bladder (HCC) [C67.8] Order(s):COMPLETE BLOOD COUNT AND DIFFERENTIAL [SQCBCDIF] Order #: [id number] FUTURE COMPREHENSIVE METABOLIC PANEL [SQCMP] Order #: [id number] FUTURE Prescriptions as of 04/24/2024 - ondansetron (ZOFRAN) 8 mg tablet Take 1 tablet by mouth every 8 hours as needed for nausea/vomiting. - zinc sulfate (ZINC-15 ORAL) Take by mouth. - meloxicam (MOBIC) 7.5 mg tablet Take 7.5 mg by mouth once daily. - metoprolol succinate ER (TOPROL XL) 100 mg Take 100 mg by mouth. - pantoprazole DR (PROTONIX) 40 mg tablet Take 40 mg by mouth once daily. - Pramipexole 0.75 mg tablet Take 0.75 mg by mouth. - guaiFENesin (MUCINEX) 600 mg 12 hr tablet Take 1,200 mg by mouth. - budesonide (PULMICORT) 0.5 mg/2 mL nebulizer solution 0.5 mg. - arformoterol (BROVANA) 15 mcg/2 mL nebulizer solution 15 mcg. - fluticasone (FLONASE) 50 mcg/actuation nasal spray 2 Sprays. - Ipratropium (ATROVENT HFA) 17 mcg/actuation inhaler Inhale 2 Puffs as instructed. - amLODIPine (NORVASC) 5 mg tablet Take 5 mg by mouth. - alendronate (FOSAMAX) 70 mg tablet Take 1 tablet by mouth one time a week. - atorvastatin (LIPITOR) 40 mg tablet Take 40 mg by mouth. - biotin 5 mg capsule Take 5 mg by mouth. - escitalopram oxalate (LEXAPRO) 20 mg tablet Take 20 mg by mouth. - gabapentin (NEURONTIN) 300 mg capsule Take 300 mg by mouth daily at bedtime. - revefenacin (YUPELRI) 175 mcg/3 mL solution for nebulization 175 mcg. - losartan (COZAAR) 100 mg tablet Take 100 mg by mouth. Problem List As Of Date 04/24/2024 Noted Resolved Malignant neoplasm of overlapping sites of blad*04/07/2024 Severe protein-calorie malnutrition (HCC) [E43] 04/18/2024 Encounter Status:Closed by LEE DUNN on 04/24/24 Normal [facility] CNPNon 04-22-2024 CNPN Telephone ([employer]) SVETLANA ADRIAN ([id number]) 1955 F Date Time Provider Department 04/22/24 ASHLEY MARTINEZ During your visit today, we recorded the following information about you: Ashley Martinez RN 04/22/2024 3:57 PM Signed Update on patient from last week. Pt was in 04/18 for D1C1. CrCl [address] Cabello in your absence. Orders were given to hold Cisplatin that day. Pt received IVF and Dickenson only. Ashley Martinez RN Allergies As of Date: 04/22/2024 (No Known Allergies) Date Reviewed: 04/18/2024 Reviewed by: Katia Goss RD - Fully Assessed Reason for Visit: Treatment Planning [881] Prescriptions as of 05/06/2024 - ensifentrine (OHTUVAYRE) 3 mg/2.5 mL suspension for nebulization Use 3 mg via nebulizer two times a day. - ondansetron (ZOFRAN) 8 mg tablet Take 1 tablet by mouth every 8 hours as needed for nausea/vomiting. - zinc sulfate (ZINC-15 ORAL) Take by mouth. - meloxicam (MOBIC) 7.5 mg tablet Take 7.5 mg by mouth once daily. - metoprolol succinate ER (TOPROL XL) 100 mg Take 100 mg by mouth. - pantoprazole DR (PROTONIX) 40 mg tablet Take 40 mg by mouth once daily. - Pramipexole 0.75 mg tablet Take 0.75 mg by mouth. - guaiFENesin (MUCINEX) 600 mg 12 hr tablet Take 1,200 mg by mouth. - budesonide (PULMICORT) 0.5 mg/2 mL nebulizer solution 0.5 mg. - arformoterol (BROVANA) 15 mcg/2 mL nebulizer solution 15 mcg. - fluticasone (FLONASE) 50 mcg/actuation nasal spray 2 Sprays. - Ipratropium (ATROVENT HFA) 17 mcg/actuation inhaler Inhale 2 Puffs as instructed. - amLODIPine (NORVASC) 5 mg tablet Take 5 mg by mouth. - alendronate (FOSAMAX) 70 mg tablet Take 1 tablet by mouth one time a week. - atorvastatin (LIPITOR) 40 mg tablet Take 40 mg by mouth. - biotin 5 mg capsule Take 5 mg by mouth. - escitalopram oxalate (LEXAPRO) 20 mg tablet Take 20 mg by mouth. - gabapentin (NEURONTIN) 300 mg capsule Take 300 mg by mouth daily at bedtime. - revefenacin (YUPELRI) 175 mcg/3 mL solution for nebulization 175 mcg. - losartan (COZAAR) 100 mg tablet Take 100 mg by mouth. Problem List As Of Date 04/22/2024 Noted Resolved Malignant neoplasm of overlapping sites of blad*04/07/2024 Severe protein-calorie malnutrition (HCC) [E43] 04/18/2024 Encounter Status:Closed by ASHLEY MARTINEZ on 05/06/[facility] SVETLANA ADRIAN ([id number]) 1955 F Date Time Provider Department 04/22/24 SERGEI CARPENTER HEMTSA During your visit today, we recorded the following information about you: Sergei Carpenter RN 04/22/2024 10:55 AM Signed CYCLE 1/DAY 1 POST TREATMENT CALL Today's date: April 22, 2024 Treatment Regimen: Gemcitabine AND Cisplatin C1D1 Date: 04/18/24 Called patient to follow-up on symptom management. Spoke with pt. Pt reports she is currently getting her RSV vaccine and requests to call RNCC back at a later time. ALVARO Mohan Rebecca, RN 04/23/2024 4:17 PM Signed 2nd call placed to pt. No answer. Message left requesting call back. ALVARO Mohan Rebecca, RN 04/23/2024 5:07 PM Signed CYCLE 1/DAY 1 POST TREATMENT CALL Today's date: April 23, 2024 Treatment Regimen: Gemcitabine. Cisplatin held due to CrCl. C1D1 Date: 04/18/24 Called patient to follow-up on symptom management. Spoke with patient. SYMPTOM ASSESSMENT Neuro: Headache - occasional, Dizziness - when outside in warm weather, and Numbness/Weakness/Tin gling - in her lower extremities. Pt relates this to poor circulation.. CV/Resp: Shortness of breath - increased w/ activity. Pt has h/o COPD. Saw her scale technician. and Cough: Yes; productive white, yellow sputum and occasional GI/: Appetite: Pt states, not good, but it's getting better. , Nausea - Occasional. Oral antiemetics pended., Fluid intake: Drinking lots of water. , Diarrhea: yes, fluctuates between loose and constipated., Constipation: yes. Has fiber pills that she's taking., and Bladder/Urinary Changes: Increased output Integument: None Activity: Patient reported decreased energy level Do you need to take naps? Yes; Do you wake up feeling rested? No Rates her fatigue 03/22. Pain: Occasional pelvic pressure. Fever: No Chills: No Any new referrals needed? No Reinforced CURRENT treatment education based on current and anticipated symptoms. Discussed port/line care and patient verbalizes understanding: Not Applicable Patient instructed to contact office or after hours Hematology/Oncology fellow for: temperature ? 100.4; questions or concerns. Patient verbalized understanding of when to seek medical attention and after hours number protocol. Sergei Carpenter RN Allergies As of Date: 04/22/2024 (No Known Allergies) Date Reviewed: 04/18/2024 Reviewed by: Katia Goss RD - Fully Assessed Reason for Visit: Care Coordination [3491] Cmt: C1D1 Post Treatment Call Prescriptions as of 04/23/2024 - ondansetron (ZOFRAN) 8 mg tablet Take 1 tablet by mouth every 8 hours as needed for nausea/vomiting. - zinc sulfate (ZINC-15 ORAL) Take by mouth. - meloxicam (MOBIC) 7.5 mg tablet Take 7.5 mg by mouth once daily. - metoprolol succinate ER (TOPROL XL) 100 mg Take 100 mg by mouth. - pantoprazole DR (PROTONIX) 40 mg tablet Take 40 mg by mouth once daily. - Pramipexole 0.75 mg tablet Take 0.75 mg by mouth. - guaiFENesin (MUCINEX) 600 mg 12 hr tablet Take 1,200 mg by mouth. - budesonide (PULMICORT) 0.5 mg/2 mL nebulizer solution 0.5 mg. - arformoterol (BROVANA) 15 mcg/2 mL nebulizer solution 15 mcg. - fluticasone (FLONASE) 50 mcg/actuation nasal spray 2 Sprays. - Ipratropium (ATROVENT HFA) 17 mcg/actuation inhaler Inhale 2 Puffs as instructed. - amLODIPine (NORVASC) 5 mg tablet Take 5 mg by mouth. - alendronate (FOSAMAX) 70 mg tablet Take 1 tablet by mouth one time a week. - atorvastatin (LIPITOR) 40 mg tablet Take 40 mg by mouth. - biotin 5 mg capsule Take 5 mg by mouth. - escitalopram oxalate (LEXAPRO) 20 mg tablet Take 20 mg by mouth. - gabapentin (NEURONTIN) 300 mg capsule Take 300 mg by mouth daily at bedtime. - revefenacin (YUPELRI) 175 mcg/3 mL solution for nebulization 175 mcg. - losartan (COZAAR) 100 mg tablet Take 100 mg by mouth. Problem List As Of Date 04/22/2024 Noted Resolved Malignant neoplasm of overlapping sites of blad*04/07/2024 Severe protein-calorie malnutrition (HCC) [E43] 04/18/2024 Encounter Status:Closed by SERGEI CARPENTER on 04/23/24 Normal [facility] metabolic 2000 panelOrdered By: Dante Brooks on 04-18-2024 Albumin [Mass/Vol] 3.9 g/dL 3.9 - 4.9 g/dL [facility] ALP [Catalytic activity/Vol] 75 U/L 34 - 123 U/L [facility] ALT [Catalytic activity/Vol] 21 U/L 7 - 38 U/L [facility] Anion gap [Moles/Vol] 11 mmol/L 8 - 15 mmol/L [facility] AST [Catalytic activity/Vol] [facility] Comment on above: Unable to assay. Spe cimen significantly hemolyzed. Bilirubin [Mass/Vol] 0.3 mg/dL 0.2 - 1 .3 mg/dL [facility] Calcium [Mass/Vol] 9.2 mg/dL 8.5 - 10. 2 mg/dL [facility] Chloride [Moles/Vol] 89 mmol/L Low 98 - 10 7 mmol/L [facility] CO2 [Moles/Vol] 24 mmol/L 22 - 30 mmol/L [facility] Creatinine [Mass/Vol] 0.68 mg/dL 0.58 - 0.96 mg/dL [facility] GFR/1.73 sq M.predicted among non-blacks MDRD (S/P/Bld) [Vol rate/Area] 94 mL/min/{1.73_m2} - PINF [facility] Comment on above: Estimated Glomerular Filtration Rate (eGFR) is calculated using the 2020 CKD-EPI creatinine equation. This equation utilizes serum creatinine, sex, and age as parameters. The creatinine assay has traceable calibration to isotope dilution-mass spectrometry. Refer to KDIGO guidelines for clinical interpretation. In patients with unstable renal function, e.g. those with acute kidney injury, the eGFR may not accurately reflect actual GFR. Glucose [Mass/Vol] 113 mg/dL High 74 - 99 mg/dL [facility] Comment on above: The [place] Di[employer] s Association (ADA) provides guidance for cutoff values for fasting glucose and random glucose. The ADA defines fasting as no caloric intake for at least 8 hours. Fasting plasma glucose results between 100 to 125 mg/dL indicate increased risk for diabetes (prediabetes). Fasting plasma glucose results greater than or equal to 126 mg/dL meet the criteria for diagnosis of diabetes. In the absence of unequivocal hyperglycemia, results should be confirmed by repeat testing. In a patient with classic symptoms of hyperglycemia or hyperglycemic crisis, random plasma glucose results greater than or equal to 200 mg/dL meet the criteria for diagnosis of diabetes. Reference: Standards of Medical Care in Diabetes 2016, [place] [employer]. Diabetes Care. 2016.39(Suppl 1). Interpretation and review of laboratory results Abnormal [facility] Potassium [Moles/Vol] 3.7 mmol/L 3.7 - 5.1 mmol/L [facility] Protein [Mass/Vol] 5.8 g/dL Low 6.3 - 8.0 g/dL [facility] Sodium [Moles/Vol] 124 mmol/L Low 136 - 144 mmol/L [facility] Urea nitrogen [Mass/Vol] 9 mg/dL 7 - 21 mg/dL [facility] Comprehensive metabolic 2000 panelon 04-18-2024 Albumin [Mass/Vol] 3.9 g/dL Normal 3.9-4.9 [facility] Comment on above: Order Comment: Speci men Type: BLOOD SPECIMENOrdering Facility: [facility] Address: [address] [place] [address] Performed By: #### 2 4323-8 ####[facility] LABCLIA [id number] [place] [address] ALP [Catalytic activity/Vol] 75 U/L Normal 34-123 [facility] Comment on above: Order Comment: Milindi men Type: BLOOD SPECIMENOrdering Facility: [facility] Address: [address] [place] [address] Performed By: #### 2 4323-8 ####[facility] LABCLIA [id number] [place] [address] ALT [Catalytic activity/Vol] 21 U/L Normal 7-38 [facility] Comment on above: Order Comment: Shantel walters Type: BLOOD SPECIMENOrdering Facility: [facility] Address: [address] [place] [address] Performed By: #### 2 4323-8 ####[facility] LABCLIA [id number] [place] [address] Anion gap [Moles/Vol] 11 mmol/L Normal 8-15 [facility] Comment on above: Order Comment: Speci men Type: BLOOD SPECIMENOrdering Facility: [facility] Address: [address] [place] [address] Performed By: #### 2 4323-8 ####[facility] LABCLIA [id number] [place] [address] AST [Catalytic activity/Vol] Normal [facility] Comment on above: Order Comment: Speci men Type: BLOOD SPECIMENOrdering Facility: [facility] Address: [address] [place] [address] Result Comment: Unab le to assay. Specimen significantly hemolyzed. Performed By: #### 2 4323-8 ####[facility] LABCLIA [id number] [place] [address] Bilirubin [Mass/Vol] 0.3 mg/dL Normal 0.2-1.3 [facility] Comment on above: Order Comment: Speci men Type: BLOOD SPECIMENOrdering Facility: [facility] Address: [address] [place] [address] Performed By: #### 2 4323-8 ####[facility] LABCLIA [id number] [place] [address] Calcium [Mass/Vol] 9.2 mg/dL Normal 8.5-10.2 [facility] Comment on above: Order Comment: Speci men Type: BLOOD SPECIMENOrdering Facility: [facility] Address: [address] [place], [place] [id number] Performed By: #### 2 4323-8 ####[facility] LABCLIA [id number] [place] [address] Chloride [Moles/Vol] 89 mmol/L Low 98-107 [facility] Comment on above: Order Comment: Speci men Type: BLOOD SPECIMENOrdering Facility: [facility] Address: [address] [place] [address] Performed By: #### 2 4323-8 ####[facility] LABCLIA [id number] [place] [address] CO2 [Moles/Vol] 24 mmol/L Normal 22-30 [facility] Comment on above: Order Comment: Speci men Type: BLOOD SPECIMENOrdering Facility: [facility] Address: [address] [place] [address] Performed By: #### 2 4323-8 ####[facility] LABCLIA [id number] [place] [address] Creatinine [Mass/Vol] 0.68 mg/dL Normal 0.58-0.96 [facility] Comment on above: Order Comment: Speci men Type: BLOOD SPECIMENOrdering Facility: [facility] Address: [address] [place] [address] Performed By: #### 2 4323-8 ####[facility] LABCLIA [id number] [place] [address] Creatinine and Glomerular filtration rate.predicted panel (S/P/Bld) 94 mL/min/1.73m??? Normal >=60 [facility] Comment on above: Order Comment: Speci men Type: BLOOD SPECIMENOrdering Facility: [facility] Address: [address] [place] [address] Result Comment: Tosin mated Glomerular Filtration Rate (eGFR) is calculated using the 2020 CKD-EPI creatinine equation. This equation utilizes serum creatinine, sex, and age as parameters. The creatinine assay has traceable calibration to isotope dilution-mass spectrometry. Refer to KDIGO guidelines for clinical interpretation. In patients with unstable renal function, e.g. those with acute kidney injury, the eGFR may not accurately reflect actual GFR. Performed By: #### 2 4323-8 ####[facility] LABCLIA [id number] [place] [address] Glucose [Mass/Vol] 113 mg/dL High 74-99 [facility] Comment on above: Order Comment: Speci men Type: BLOOD SPECIMENOrdering Facility: [facility] Address: [address] [place] [address] Result Comment: The [place] Diabetes Association (ADA) provides guidance for cutoff values for fasting glucose and random glucose. The ADA defines fasting as no caloric intake for at least 8 hours. Fasting plasma glucose results between 100 to 125 mg/dL indicate increased risk for diabetes (prediabetes). Fasting plasma glucose results greater than or equal to 126 mg/dL meet the criteria for diagnosis of diabetes. In the absence of unequivocal hyperglycemia, results should be confirmed by repeat testing. In a patient with classic symptoms of hyperglycemia or hyperglycemic crisis, random plasma glucose results greater than or equal to 200 mg/dL meet the criteria for diagnosis of diabetes. Reference: Standards of Medical Care in Diabetes 2016, [place] [employer]. Diabetes Care. 2016.39(Suppl 1). Performed By: #### 2 4323-8 ####[facility] LABCLIA [id number] [place] [address] Potassium [Moles/Vol] 3.7 mmol/L Normal 3.7-5.1 [facility] Comment on above: Order Comment: Milindi men Type: BLOOD SPECIMENOrdering Facility: [facility] Address: [address] [place], [place] [address] Performed By: #### 2 4323-8 ####[facility] LABCLIA [id number] [place] [address] Protein [Mass/Vol] 5.8 g/dL Low 6.3-8.0 [facility] Comment on above: Order Comment: Speci men Type: BLOOD SPECIMENOrdering Facility: [facility] Address: [address] [place] [address] Performed By: #### 2 4323-8 ####[facility] LABCLIA [id number] [place] [address] Sodium [Moles/Vol] 124 mmol/L Low 136-144 [facility] Comment on above: Order Comment: Speci men Type: BLOOD SPECIMENOrdering Facility: [facility] Address: [address] [place] [address] Performed By: #### 2 4323-8 ####[facility] LABCLIA [id number] [place] [address] Urea nitrogen [Mass/Vol] 9 mg/dL Normal 7-21 [facility] Comment on above: Order Comment: Speci men Type: BLOOD SPECIMENOrdering Facility: [facility] Address: [address] [place] [address] Performed By: #### 2 4323-8 ####[facility] LABCLIA [id number] [place] [address] Seth 04-10-2024 CNPN Telephone (HEMASA) SVETLANA ADRIAN ([id number]) 1955 F Date Time Provider Department 04/10/24 SERGEI CARPENTER During your visit today, we recorded the following information about you: Sergei Carpenter RN 04/10/2024 12:39 PM Signed Pt would like to meet w/ belt brander. Order pended. ALVARO Mohan Vivek, MD 04/10/2024 1:53 PM Signed Signed orders. Thank you Sergei Carpenter RN 04/10/2024 2:30 PM Signed Clerical: Please pair nutrition appointment w/ her other appointments. Thanks! ALVARO Mohan Brittany 04/10/2024 4:34 PM Signed Patient is scheduled for treatment on 04/18, Usha not in the office. Patient still has a pending follow up appointment out for response from Dr. Bailey.. Will await further instructions for him for her next set of appointments to coordinate. Rd Muhammad 04/11/2024 9:06 AM Signed Patient has been scheduled for RV and treatment w/ JOHN on 04/25. Made a phone appt with Usha on 04/17 since she is not in the office on and Fridays. Called and left a message on patient's VM regarding these appts. Rd LeblancRd 04/11/2024 9:19 AM Signed Patients called back and confirmed all appts. Rd Leblanc Allergies As of Date: 04/10/2024 (No Known Allergies) Date Reviewed: 04/10/2024 Reviewed by: Sergei Carpenter, RN - Fully Assessed Reason for Visit: Care Coordination [3122] Cmt: Nutrition Referral Primary Visit Diagnosis:Malignant neoplasm of overlapping sites of bladder (HCC) [C67.8] Order(s):CONSULT TO ONCOLOGY NUTRITION [1230539] Order #: [id number]: 1 FUTURE Prescriptions as of 04/11/2024 - sodium chloride soluble tablet 1 g Take 1 tablet by mouth once daily for 10 days. - ondansetron (ZOFRAN) 8 mg tablet Take 1 tablet by mouth every 8 hours as needed for nausea/vomiting. - zinc sulfate (ZINC-15 ORAL) Take by mouth. - meloxicam (MOBIC) 7.5 mg tablet Take 7.5 mg by mouth once daily. - metoprolol succinate ER (TOPROL XL) 100 mg Take 100 mg by mouth. - pantoprazole DR (PROTONIX) 40 mg tablet Take 40 mg by mouth once daily. - Pramipexole 0.75 mg tablet Take 0.75 mg by mouth. - guaiFENesin (MUCINEX) 600 mg 12 hr tablet Take 1,200 mg by mouth. - budesonide (PULMICORT) 0.5 mg/2 mL nebulizer solution 0.5 mg. - arformoterol (BROVANA) 15 mcg/2 mL nebulizer solution 15 mcg. - fluticasone (FLONASE) 50 mcg/actuation nasal spray 2 Sprays. - Ipratropium (ATROVENT HFA) 17 mcg/actuation inhaler Inhale 2 Puffs as instructed. - amLODIPine (NORVASC) 5 mg tablet Take 5 mg by mouth. - alendronate (FOSAMAX) 70 mg tablet Take 1 tablet by mouth one time a week. - atorvastatin (LIPITOR) 40 mg tablet Take 40 mg by mouth. - biotin 5 mg capsule Take 5 mg by mouth. - escitalopram oxalate (LEXAPRO) 20 mg tablet Take 20 mg by mouth. - gabapentin (NEURONTIN) 300 mg capsule Take 300 mg by mouth daily at bedtime. - revefenacin (YUPELRI) 175 mcg/3 mL solution for nebulization 175 mcg. - losartan (COZAAR) 100 mg tablet Take 100 mg by mouth. Problem List As Of Date 04/10/2024 Noted Resolved Malignant neoplasm of overlapping sites of blad*04/07/2024 Encounter Status:Closed by RD LEBLANC on 04/11/24 [facility] Seth 04-08-2024 DERIKN Telephone (HEMASA) SVETLANA ADRIAN ([id number]) 1955 F Date Time Provider Department 04/08/24 SERGEI CARPENTER During your visit today, we recorded the following information about you: Sergei Carpenter RN 04/08/2024 11:22 AM Signed Pt will be in on for education. Scripts for antiemetics pended. Sergei Carpenter RN Allergies As of Date: 04/08/2024 (No Known Allergies) Date Reviewed: 04/04/2024 Reviewed by: Kaylah Bernal MA - Fully Assessed Reason for Visit: Care Coordination [9872] Cmt: Antiemetics Order(s):prochlorpera zine (COMPAZINE) 10 mg tabletTake 1 tablet by mouth every 6 hours as needed.Disp: 100 tabletRfl: 1 ondansetron (ZOFRAN) 8 mg tabletTake 1 tablet by mouth every 8 hours as needed for nausea/vomiting.Disp: 90 tabletRfl: 1 Prescriptions as of 04/08/2024 - sodium chloride soluble tablet 1 g Take 1 tablet by mouth once daily for 10 days. - prochlorperazine (COMPAZINE) 10 mg tablet Take 1 tablet by mouth every 6 hours as needed. - ondansetron (ZOFRAN) 8 mg tablet Take 1 tablet by mouth every 8 hours as needed for nausea/vomiting. - zinc sulfate (ZINC-15 ORAL) Take by mouth. - meloxicam (MOBIC) 7.5 mg tablet Take 7.5 mg by mouth once daily. - metoprolol succinate ER (TOPROL XL) 100 mg Take 100 mg by mouth. - pantoprazole DR (PROTONIX) 40 mg tablet Take 40 mg by mouth once daily. - Pramipexole 0.75 mg tablet Take 0.75 mg by mouth. - guaiFENesin (MUCINEX) 600 mg 12 hr tablet Take 1,200 mg by mouth. - budesonide (PULMICORT) 0.5 mg/2 mL nebulizer solution 0.5 mg. - arformoterol (BROVANA) 15 mcg/2 mL nebulizer solution 15 mcg. - fluticasone (FLONASE) 50 mcg/actuation nasal spray 2 Sprays. - Ipratropium (ATROVENT HFA) 17 mcg/actuation inhaler Inhale 2 Puffs as instructed. - amLODIPine (NORVASC) 5 mg tablet Take 5 mg by mouth. - alendronate (FOSAMAX) 70 mg tablet Take 1 tablet by mouth one time a week. - atorvastatin (LIPITOR) 40 mg tablet Take 40 mg by mouth. - biotin 5 mg capsule Take 5 mg by mouth. - escitalopram oxalate (LEXAPRO) 20 mg tablet Take 20 mg by mouth. - gabapentin (NEURONTIN) 300 mg capsule Take 300 mg by mouth daily at bedtime. - revefenacin (YUPELRI) 175 mcg/3 mL solution for nebulization 175 mcg. - losartan (COZAAR) 100 mg tablet Take 100 mg by mouth. Problem List As Of Date 04/08/2024 Noted Resolved Malignant neoplasm of overlapping sites of blad*04/07/2024 Prescriptions ordered this encounter Disp Refills Start End PROCHLORPERAZINE MALEATE 10 MG TABLET 100 * 1 04/08/2024 Route: ORAL Sig: Take 1 tablet by mouth every 6 hours as needed. ONDANSETRON HCL 8 MG TABLET 90 t* 1 04/08/2024 Route: ORAL Sig: Take 1 tablet by mouth every 8 hours as needed for nausea/vomiting. Encounter Status:Closed by LEE DUNN on 04/08/24 [facility] Telephone (SDOPRX) SVETLANA ADRIAN Key ([id number]) 1955 F Date Time Provider Department 04/08/24 PAMELA PACE SDOPRX During your visit today, we recorded the following information about you: Pamela Pace [facility] 04/08/2024 1:39 PM Signed Patient reports taking Pramipexole on med list: Drug/Drug Interaction: Prochlorperazine/Pram ipexole Title Anti-Parkinson Agents (Dopamine Agonist) / Antipsychotic Agents (First Generation [Typical]) Risk Rating D: Consider therapy modification Summary Antipsychotic Agents (First Generation [Typical]) may diminish the therapeutic effect of Anti-Parkinson Agents (Dopamine Agonist). Severity Moderate Reliability Rating Fair Patient Management The combination of typical antipsychotics and a dopamine agonist should generally be avoided. If antipsychotic therapy is necessary consider using atypical antipsychotics such as clozapine, quetiapine, or ziprasidone at lower initial doses, or a non-dopamine antagonist (eg, pimavanserin). Anti-Parkinson Agents (Dopamine Agonist) Interacting Members Amantadine; Apomorphine; Bromocriptine*; Foslevodopa; Levodopa*; Levodopa (Oral Inhalation); Lisuride; Pergolide; Piribedil; Pramipexole; ROPINIRole; Rotigotine Antipsychotic Agents (First Generation [Typical]) Interacting Members Benperidol; Bromperidol; ChlorproMAZINE*; Chlorprothixene; DroPERidol; Flupentixol; FluPHENAZine; Haloperidol*; Loxapine; Molindone; Perazine; Periciazine; Perphenazine; Pimozide; Pipamperone [INT]; Prochlorperazine; Promazine; Thioridazine; Thiothixene; Trifluoperazine; Zuclopenthixol Exceptions (agents listed are discussed in separate interaction monograph[s] or are non-interacting) Methotrimeprazine Please advise, Pamela Pace Lee Babcock MD 04/08/2024 8:17 PM Signed Drop the compazine - can use dex or ativan as needed. Allergies As of Date: 04/08/2024 (No Known Allergies) Date Reviewed: 04/04/2024 Reviewed by: Kaylah Bernal MA - Fully Assessed Reason for Visit: Drug/Drug Interaction [0489] Cmt: Prochlorperazine/Pram ipexole Prescriptions as of 04/10/2024 - sodium chloride soluble tablet 1 g Take 1 tablet by mouth once daily for 10 days. - ondansetron (ZOFRAN) 8 mg tablet Take 1 tablet by mouth every 8 hours as needed for nausea/vomiting. - zinc sulfate (ZINC-15 ORAL) Take by mouth. - meloxicam (MOBIC) 7.5 mg tablet Take 7.5 mg by mouth once daily. - metoprolol succinate ER (TOPROL XL) 100 mg Take 100 mg by mouth. - pantoprazole DR (PROTONIX) 40 mg tablet Take 40 mg by mouth once daily. - Pramipexole 0.75 mg tablet Take 0.75 mg by mouth. - guaiFENesin (MUCINEX) 600 mg 12 hr tablet Take 1,200 mg by mouth. - budesonide (PULMICORT) 0.5 mg/2 mL nebulizer solution 0.5 mg. - arformoterol (BROVANA) 15 mcg/2 mL nebulizer solution 15 mcg. - fluticasone (FLONASE) 50 mcg/actuation nasal spray 2 Sprays. - Ipratropium (ATROVENT HFA) 17 mcg/actuation inhaler Inhale 2 Puffs as instructed. - amLODIPine (NORVASC) 5 mg tablet Take 5 mg by mouth. - alendronate (FOSAMAX) 70 mg tablet Take 1 tablet by mouth one time a week. - atorvastatin (LIPITOR) 40 mg tablet Take 40 mg by mouth. - biotin 5 mg capsule Take 5 mg by mouth. - escitalopram oxalate (LEXAPRO) 20 mg tablet Take 20 mg by mouth. - gabapentin (NEURONTIN) 300 mg capsule Take 300 mg by mouth daily at bedtime. - revefenacin (YUPELRI) 175 mcg/3 mL solution for nebulization 175 mcg. - losartan (COZAAR) 100 mg tablet Take 100 mg by mouth. Problem List As Of Date 04/08/2024 Noted Resolved Malignant neoplasm of overlapping sites of blad*04/07/2024 Medications Discontinued During This Encounter Prescriptions - prochlorperazine (COMPAZINE) 10 mg tablet (Discontinued) Take 1 tablet by mouth every 6 hours as needed. Encounter Status:Closed by PAMELA PACE on 04/10/24 Normal [facility] CBC W Auto Differential pane l (Bld)on 04-07-2024 Basophils (Bld) [#/Vol] 0.06 10*3/uL [facility] Basophils/100 WBC (Bld) 0.6 % [facility] Differential cell count method Nom (Bld) Auto [facility] Eosinophils (Bld) [#/Vol] 0.22 10*3/uL [facility] Eosinophils/100 WBC (Bld) 2.4 % [facility] Erythrocyte distribution width (RBC) [Ratio] 15.6 % High 11.5 - 15.0 % [facility] Hematocrit (Bld) [Volume fraction] 38.1 % 36.0 - 46.0 % [facility] Hemoglobin (Bld) [Mass/Vol] 13.1 g/dL 11.5 - 15.5 g/dL [facility] Immature granulocytes (Bld) [#/Vol] 0.05 10*3/uL [facility] Immature granulocytes/100 WBC (Bld) 0.5 % [facility] Interpretation and review of laboratory results Abnormal [facility] Lymphocytes (Bld) [#/Vol] 1.31 10*3/uL [facility] Lymphocytes/100 WBC (Bld) 14.1 % [facility] MCH (RBC) [Entitic mass] 28.4 pg 26.0 - 34.0 pg [facility] MCHC (RBC) [Mass/Vol] 34.4 g/dL 30.5 - 36.0 g/dL [facility] MCV (RBC) [Entitic vol] 82.6 fL 80.0 - 100.0 fL [facility] Monocytes (Bld) [#/Vol] 0.85 10*3/uL NINF [facility] Monocytes/100 WBC (Bld) 9.1 % [facility] Neutrophils (Bld) [#/Vol] 6.81 10*3/uL [facility] Neutrophils/100 WBC (Bld) 73.3 % [facility] Nucleated RBC (Bld) [#/Vol] NINF [facility] Nucleated RBC/100 WBC (Bld) [Ratio] 0.0 % /100 WBC [facility] Platelet mean volume (Bld) [Entitic vol] 8.1 fL Low 9.0 - 12.7 fL [facility] Platelets (Bld) [#/Vol] 395 10*3/uL [facility] RBC (Bld) [#/Vol] 4.61 10*6/uL 3.90 - 5.2 0 m/uL [facility] WBC (Bld) [#/Vol] 9.30 10*3/uL [facility] Basophils (Bld) [#/Vol] 0.06 10*3/uL Normal <0.11 [facility] Comment on above: Order Comment: Speci men Type: BLOOD SPECIMENOrdering Facility: [facility] Address: [address] [place] [address] Performed By: #### 5 7021-8 ####[facility] LABCLIA [id number] [place] [address] Basophils/100 WBC (Bld) 0.6 % Normal [facility] Comment on above: Order Comment: Speci men Type: BLOOD SPECIMENOrdering Facility: [facility] Address: [address] [place] [address] Performed By: #### 5 7021-8 ####[facility] LABCLIA [id number] [place] [address] Differential cell count method Nom (Bld) Auto Normal [facility] Comment on above: Order Comment: Speci men Type: BLOOD SPECIMENOrdering Facility: [facility] Address: [address] [place] [address] Performed By: #### 5 7021-8 ####[facility] LABCLIA [id number] [place] [address] Eosinophils (Bld) [#/Vol] 0.22 10*3/uL Normal <0.46 [facility] Comment on above: Order Comment: Speci men Type: BLOOD SPECIMENOrdering Facility: [facility] Address: [address] [place] [address] Performed By: #### 5 7021-8 ####[facility] LABCLIA [id number] [place] [address] Eosinophils/100 WBC (Bld) 2.4 % Normal [facility] Comment on above: Order Comment: Speci men Type: BLOOD SPECIMENOrdering Facility: [facility] Address: [address] [place] [address] Performed By: #### 5 7021-8 ####[facility] LABCLIA [id number] [place] [address] Erythrocyte distribution width (RBC) [Ratio] 15.6 % High 11.5-15.0 [facility] Comment on above: Order Comment: Speci men Type: BLOOD SPECIMENOrdering Facility: [facility] Address: [address] [place] [address] Performed By: #### 5 7021-8 ####[facility] LABCLIA [id number] [place] [address] Hematocrit (Bld) [Volume fraction] 38.1 % Normal 36.0-46.0 [facility] Comment on above: Order Comment: Speci men Type: BLOOD SPECIMENOrdering Facility: [facility] Address: [address] [place] [address] Performed By: #### 5 7021-8 ####[facility] LABCLIA [id number] [place] [address] Hemoglobin (Bld) [Mass/Vol] 13.1 g/dL Normal 11.5-15.5 [facility] Comment on above: Order Comment: Speci men Type: BLOOD SPECIMENOrdering Facility: [facility] Address: [address] [place] [address] Performed By: #### 5 7021-8 ####[facility] LABCLIA [id number] [place] [address] Immature granulocytes (Bld) [#/Vol] 0.05 10*3/uL Normal <0.10 [facility] Comment on above: Order Comment: Speci men Type: BLOOD SPECIMENOrdering Facility: [facility] Address: [address] [place] [address] Performed By: #### 5 7021-8 ####[facility] LABCLIA [id number] [place] [address] Immature granulocytes/100 WBC (Bld) 0.5 % Normal [facility] Comment on above: Order Comment: Speci men Type: BLOOD SPECIMENOrdering Facility: [facility] Address: [address] [place] [address] Performed By: #### 5 7021-8 ####[facility] LABCLIA [id number] [place] [address] Lymphocytes (Bld) [#/Vol] 1.31 10*3/uL Normal 1.00-4.00 [facility] Comment on above: Order Comment: Speci men Type: BLOOD SPECIMENOrdering Facility: [facility] Address: [address] [place] [address] Performed By: #### 5 7021-8 ####[facility] LABCLIA [id number] [place] [address] Lymphocytes/100 WBC (Bld) 14.1 % Normal [facility] Comment on above: Order Comment: Speci men Type: BLOOD SPECIMENOrdering Facility: [facility] Address: [address] [place] [address] Performed By: #### 5 7021-8 ####[facility] LABCLIA [id number] [place] [address] MCH (RBC) [Entitic mass] 28.4 pg Normal 26.0-34.0 [facility] Comment on above: Order Comment: Speci men Type: BLOOD SPECIMENOrdering Facility: [facility] Address: [address] [place] [address] Performed By: #### 5 7021-8 ####[facility] LABCLIA [id number] [place] [address] MCHC (RBC) [Mass/Vol] 34.4 g/dL Normal 30.5-36.0 [facility] Comment on above: Order Comment: Speci men Type: BLOOD SPECIMENOrdering Facility: [facility] Address: [address] [place] [address] Performed By: #### 5 7021-8 ####[facility] LABIA [id number] [place] [address] MCV (RBC) [Entitic vol] 82.6 fL Normal 80.0-100.0 [facility] Comment on above: Order Comment: Speci men Type: BLOOD SPECIMENOrdering Facility: [facility] Address: [address] [place] [address] Performed By: #### 5 7021-8 ####[facility] LABIA [id number] [place] [address] Monocytes (Bld) [#/Vol] 0.85 10*3/uL Normal <0.87 [facility] Comment on above: Order Comment: Speci men Type: BLOOD SPECIMENOrdering Facility: [facility] Address: [address] [place] [address] Performed By: #### 5 7021-8 ####[facility] LABIA [id number] [place] [address] Monocytes/100 WBC (Bld) 9.1 % Normal [facility] Comment on above: Order Comment: Speci men Type: BLOOD SPECIMENOrdering Facility: [facility] Address: [address] [place] [address] Performed By: #### 5 7021-8 ####[facility] LABCLIA [id number] [place] [address] Neutrophils (Bld) [#/Vol] 6.81 10*3/uL Normal 1.45-7.50 [facility] Comment on above: Order Comment: Speci men Type: BLOOD SPECIMENOrdering Facility: [facility] Address: [address] [place] [address] Performed By: #### 5 7021-8 ####[facility] LABCLIA [id number] [place] [address] Neutrophils/100 WBC (Bld) 73.3 % Normal [facility] Comment on above: Order Comment: Speci men Type: BLOOD SPECIMENOrdering Facility: [facility] Address: [address] [place] [address] Performed By: #### 5 7021-8 ####[facility] LABCLIA [id number] [place] [address] Nucleated RBC (Bld) [#/Vol] 10*3/uL Normal <0.01 [facility] Comment on above: Order Comment: Speci men Type: BLOOD SPECIMENOrdering Facility: [facility] Address: [address] [place] [address] Performed By: #### 5 7021-8 ####[facility] LABCLIA [id number] [place] [address] Nucleated RBC/100 WBC (Bld) [Ratio] 0.0 /100 WBC Normal [facility] Comment on above: Order Comment: Speci men Type: BLOOD SPECIMENOrdering Facility: [facility] Address: [address] [place] [address] Performed By: #### 5 7021-8 ####[facility] LABCLIA [id number] [place] [address] Platelet mean volume (Bld) [Entitic vol] 8.1 fL Low 9.0-12.7 [facility] Comment on above: Order Comment: Speci men Type: BLOOD SPECIMENOrdering Facility: [facility] Address: [address] [place] [address] Performed By: #### 5 7021-8 ####[facility] LABCLIA [id number] [place] [address] Platelets (Bld) [#/Vol] 395 10*3/uL Normal 150-400 [facility] Comment on above: Order Comment: Speci men Type: BLOOD SPECIMENOrdering Facility: [facility] Address: [address] [place] [address] Performed By: #### 5 7021-8 ####[facility] LABIA [id number] [place] [address] RBC (Bld) [#/Vol] 4.61 10*6/uL Normal 3.90-5.20 [facility] Comment on above: Order Comment: Speci men Type: BLOOD SPECIMENOrdering Facility: [facility] Address: [address] [place] [address] Performed By: #### 5 7021-8 ####[facility] LABIA [id number] [place] [address] WBC (Bld) [#/Vol] 9.30 10*3/uL Normal 3.70-11.00 [facility] Comment on above: Order Comment: Speci men Type: BLOOD SPECIMENOrdering Facility: [facility] Address: [address] [place] [address] Performed By: #### 5 7021-8 ####[facility] LABIA [id number] [place] [address] Comprehensive metabolic 2000 panelon 04-07-2024 Albumin [Mass/Vol] 3.9 g/dL Normal 3.9-4.9 [facility] Comment on above: Order Comment: Speci men Type: BLOOD SPECIMENOrdering Facility: [facility] Address: [address] [place] [address] Performed By: #### 2 4323-8 ####[facility] LABCLIA [id number] [place] [address] [place] ALP [Catalytic activity/Vol] 67 U/L Normal 34-123 [facility] Comment on above: Order Comment: Speci men Type: BLOOD SPECIMENOrdering Facility: [facility] Address: [address] [place] [address] Performed By: #### 2 4323-8 ####[facility] LABCLIA [id number] [place] [address] [place] ALT [Catalytic activity/Vol] 20 U/L Normal 7-38 [facility] Comment on above: Order Comment: Speci men Type: BLOOD SPECIMENOrdering Facility: [facility] Address: [address] [place] [address] Performed By: #### 2 4323-8 ####[facility] LABCLIA [id number] [place] [address] [place] Anion gap [Moles/Vol] 11 mmol/L Normal 8-15 [facility] Comment on above: Order Comment: Speci men Type: BLOOD SPECIMENOrdering Facility: [facility] Address: [address] [place] [address] Performed By: #### 2 4323-8 ####[facility] LABCLIA [id number] [place] [address] [place] AST [Catalytic activity/Vol] 23 U/L Normal 13-35 [facility] Comment on above: Order Comment: Speci men Type: BLOOD SPECIMENOrdering Facility: [facility] Address: [address] [place] [address] Performed By: #### 2 4323-8 ####[facility] LABCLIA [id number] [place] [address] [place] Bilirubin [Mass/Vol] 0.3 mg/dL Normal 0.2-1.3 [facility] Comment on above: Order Comment: Speci men Type: BLOOD SPECIMENOrdering Facility: [facility] Address: [address] [place] [address] Performed By: #### 2 4323-8 ####[facility] LABCLIA [id number] [place] [address] [place] Calcium [Mass/Vol] 9.5 mg/dL Normal 8.5-10.2 [facility] Comment on above: Order Comment: Speci men Type: BLOOD SPECIMENOrdering Facility: [facility] Address: [address] [place] [address] Performed By: #### 2 4323-8 ####[facility] LABCLIA [id number] [place] [address] [place] Chloride [Moles/Vol] 87 mmol/L Low 98-107 [facility] Comment on above: Order Comment: Speci men Type: BLOOD SPECIMENOrdering Facility: [facility] Address: [address] [place] [address] Performed By: #### 2 4323-8 ####[facility] LABCLIA [id number] [place] [address] [place] CO2 [Moles/Vol] 26 mmol/L Normal 22-30 [facility] Comment on above: Order Comment: Speci men Type: BLOOD SPECIMENOrdering Facility: [facility] Address: [address] [place] [address] Performed By: #### 2 4323-8 ####[facility] LABCLIA [id number] [place] [address] [place] Creatinine [Mass/Vol] 0.79 mg/dL Normal 0.58-0.96 [facility] Comment on above: Order Comment: Speci men Type: BLOOD SPECIMENOrdering Facility: [facility] Address: [address] [place] [address] Performed By: #### 2 4323-8 ####[facility] LABCLIA [id number] [place] [address] [place] Creatinine and Glomerular filtration rate.predicted panel (S/P/Bld) 81 mL/min/1.73m??? Normal >=60 [facility] Comment on above: Order Comment: Shantel walters Type: BLOOD SPECIMENOrdering Facility: [facility] Address: [address] [place] [address] Result Comment: Tosin mated Glomerular Filtration Rate (eGFR) is calculated using the 2020 CKD-EPI creatinine equation. This equation utilizes serum creatinine, sex, and age as parameters. The creatinine assay has traceable calibration to isotope dilution-mass spectrometry. Refer to KDIGO guidelines for clinical interpretation. In patients with unstable renal function, e.g. those with acute kidney injury, the eGFR may not accurately reflect actual GFR. Performed By: #### 2 4323-8 ####[facility] LABCLIA [id number] [place] [address] [place] Glucose [Mass/Vol] 102 mg/dL High 74-99 [facility] Comment on above: Order Comment: Shantel walters Type: BLOOD SPECIMENOrdering Facility: [facility] Address: [address] [place] [address] Result Comment: The [place] [employer] (ADA) provides guidance for cutoff values for fasting glucose and random glucose. The ADA defines fasting as no caloric intake for at least 8 hours. Fasting plasma glucose results between 100 to 125 mg/dL indicate increased risk for diabetes (prediabetes). Fasting plasma glucose results greater than or equal to 126 mg/dL meet the criteria for diagnosis of diabetes. In the absence of unequivocal hyperglycemia, results should be confirmed by repeat testing. In a patient with classic symptoms of hyperglycemia or hyperglycemic crisis, random plasma glucose results greater than or equal to 200 mg/dL meet the criteria for diagnosis of diabetes. Reference: Standards of Medical Care in Diabetes 2016, [place] [employer]. Diabetes Care. 2016.39(Suppl 1). Performed By: #### 2 4323-8 ####[facility] LABCLIA [id number] [place] [address] [place] Potassium [Moles/Vol] 3.9 mmol/L Normal 3.7-5.1 [facility] Comment on above: Order Comment: Speci men Type: BLOOD SPECIMENOrdering Facility: [facility] Address: [address] [place] [address] Performed By: #### 2 4323-8 ####[facility] LABCLIA [id number] [place] [address] [place] Protein [Mass/Vol] 6.1 g/dL Low 6.3-8.0 [facility] Comment on above: Order Comment: Speci men Type: BLOOD SPECIMENOrdering Facility: [facility] Address: [address] [place] [address] Performed By: #### 2 4323-8 ####[facility] LABIA [id number] [place] [address] [place] Sodium [Moles/Vol] 124 mmol/L Low 136-144 [facility] Comment on above: Order Comment: Speci men Type: BLOOD SPECIMENOrdering Facility: [facility] Address: [address] [place] [address] Performed By: #### 2 4323-8 ####[facility] LABIA [id number] [place] [address] [place] Urea nitrogen [Mass/Vol] 8 mg/dL Normal 7-21 [facility] Comment on above: Order Comment: Speci men Type: BLOOD SPECIMENOrdering Facility: [facility] Address: [address] [place] [address] Performed By: #### 2 4323-8 ####[facility] LABIA [id number] [place] [address] [place] CNOVSPon 04-04-2024 CNOVSP Visit (SP) Office ([place]) SVETLANA ADRIAN ([id number]) 1955 F Date Time Provider Department 04/04/24 4:00 PM LEE DUNN During your visit today, we recorded the following information about you: Temperature Pulse Respiration Blood pressure 97.4 degrees 96/minute 16/minute 125/77 Weight 49.2 kg Lee Dunn MD 04/07/2024 7:53 AM Signed NAME: Svetlana Adrian CLINIC NO.: [id number] DATE OF SERVICE: April 04, 2024 ([place]) Referring Provider: Lin Dalton MD Consultation requested by Dr. Dalton for an opinion regarding Ms. Svetlana Adrian, and my final recommendations will be communicated back to the requesting physician by way of shared medical record or letter via US mail. Additional Clinicians involved in Svetlana Adrian's care: Alejandro Jeanie DIAGNOSIS: Muscle invasive bladder Ca. ASSESSMENT: 68 year old woman with chronic tobacco use and muscle invasive bladder cancer s/p TURBT with Dr. Dalton mid-January 2024, with no evidence of metastatic disease on staging CT's done in mid-March 2024. Historically, she has preserved kidney function and should be able to tolerate Cisplatin without too much difficulty in the neoadjuvant setting. PLAN: Plan for labs next week Triage to call results Anticipate moving forward with neoadjuvant chemotherapy - GemCis - HPI: CASE HISTORY: Reverse Chronological Order 03/28/2024 - CT Chest: Moderate emphysematous changes/COPD. No acute infiltrates or suspicious nodules to suggest metastatic disease. Mild left hydronephrosis incompletely included on today's study 01/30/2024 - CT A/P: No bowel obstruction, ileus, or appreciable inflammatory changes, distal colonic diverticulosis, but no appreciable diverticulitis. Slight wall thickening of urinary bladder. Cystitis? Marked atherosclerotic disease of aorta an branches, but no aneurysm or occlusion 01/23/2024 - XR Urethrogram: Left retrograde pyelogram with no filling defect or mass observed 01/23/2024 - Bladder mass, transurethral resection: Dr. 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 Recommend cystoscopy. No obstructive uropathy. 01/13/2024 - CT A/P: for hematuria Left bladder wall masslike thickening concerning for malignancy. Recommend urology consultation. Colonic diverticulosis Initial Visit, April 04, 2024: Svetlana Adrian presents today for a Hematology and Oncology evaluation. She is joined by her , Royer. She is a 68 year old female who was found to have a bladder mass on imaging in January. TURBT confirmed malignancy with lamina propria and muscularis propria invasion. She has met with Dr. Ware to consider her surgical options. Anticipate moving forward with neoadjuvant chemotherapy with gemcitabine + cisplatin vs. Dickenson / Carbo She denies use of supplemental oxygen although she feels she could use it after walking long distances. FMHx of bladder cancer in her mother and prostate cancer in her brother. - REVIEW OF SYSTEMS Per HPI and otherwise negative by full review of organ systems. - ECOG PERFORMANCE STATUS: 1- Restricted in physically strenuous activity. Carries out light duty. PHYSICAL EXAMINATION: Vitals: BP 125/77 Pulse 96 Temp (Src) 97.4 (Temporal) Resp 16 Wt 108 lb 7.5 oz (49.2kg) SpO2 93% There is no height or weight on file to calculate BSA. Exam limited to gross visualization where appropriate. Gen.: This is an age-appropriate patient in no acute distress. Head: Appears atraumatic with no visible lesions. Eyes: Pupils equally round and reactive to light, extraocular muscles are intact. Neck: Supple. Respiratory: Appears to be respiring comfortably. Neurologic: Nonfocal to gross visualization. Alert and oriented ?3. Psychiatric: No evidence of inappropriate anxiety or depression. Skin: Visible areas of skin without rash, lesions, wounds or petechiae. - ALLERGIES: ALLERGIES No Known Allergies MEDICATIONS: zinc sulfate (ZINC-15 ORAL) Take by mouth. meloxicam (MOBIC) 7.5 mg tablet Take 7.5 mg by mouth once daily. metoprolol succinate ER (TOPROL XL) 100 mg Take [address] (PROTONIX) 40 mg tablet Take 40 mg by mouth once daily. Pramipexole 0.75 mg tablet Take 0.75 mg by mouth. guaiFENesin (MUCINEX) 600 mg 12 hr tablet Take 1,200 mg by mouth. budesonide (PULMICORT) 0.5 mg/2 mL nebulizer solution 0 (more content not included)... Normal [facility] Seth 04-04-2024 [facility] Telephone ([facility]) SVETLANA ADRIAN ([id number]) 1955 F Date Time Provider Department 04/04/24 LEE DUNN During your visit today, we recorded the following information about you: Rd Leblanc 04/04/2024 4:48 PM Signed Patient scheduled for labs on Sunday, 04/07. Usha Ribera RN 04/08/2024 8:15 AM Signed John: please review and advise ALVARO Martinez Vivek, MD 04/08/2024 8:38 AM Signed Orders in for neoadjuvant therapy - needs salt tabs daily for low sodium. Start gem cis when approved and monitor weekly labs with hydration. Needs education and consent. May also need port. - can assess that at time of education or just get it placed. Sergei Carpenter RN 04/08/2024 8:52 AM Signed Pt notified of sodium tabs and verbalizes understanding. Clerical: Please see John's scheduling instructions in the message below. Pt does not wish to schedule port placement at this time. Will discuss more at her ed appointment. Also, pt is not available on 04/16/24. Thanks! ALVARO Mohan Anne M 04/08/2024 9:27 AM Signed Working on getting patient scheduled for Chemo ed, New start chemotx and weekly lab and hydration. When does Dr Bailey need to see back for follow up? Eva Aponte 04/09/2024 11:56 AM Addendum Dagmar is scheduled for chemo ed on and New start chemo tx only on 04-18-24. No Appt at this time. Dagmar and were notified of these appts. dR Leblanc 04/10/2024 4:32 PM Signed JOHN: Patient needs a follow up appointment addressed. Thanks! Lee Paulino MD 04/10/2024 10:43 PM Signed Sorry treatments are weekly - I can see her prior to her second dose. Rd Leblanc 04/11/2024 9:06 AM Signed Patient has been scheduled for RV and treatment w/ JOHN on 04/25. Made a phone appt with Usha on 04/17 since she is not in the office on and Fridays. Called and left a message on patient's VM regarding these appts. Rd Leblanc Allergies As of Date: 04/04/2024 (No Known Allergies) Date Reviewed: 04/04/2024 Reviewed by: Kaylah Bernal MA - Fully Assessed Reason for Visit: Appointment [186] Primary Visit Diagnosis:Malignant neoplasm of overlapping sites of bladder (HCC) [C67.8] Order(s):sodium chloride soluble tablet 1 gTake 1 tablet by mouth once daily for 10 days.Disp: 10 tabletRfl: 0 IR PORTOCATH PLACEMENT [[id number]] Order #: [id number] Prescriptions as of 04/11/2024 - sodium chloride soluble tablet 1 g Take 1 tablet by mouth once daily for 10 days. - ondansetron (ZOFRAN) 8 mg tablet Take 1 tablet by mouth every 8 hours as needed for nausea/vomiting. - zinc sulfate (ZINC-15 ORAL) Take by mouth. - meloxicam (MOBIC) 7.5 mg tablet Take 7.5 mg by mouth once daily. - metoprolol succinate ER (TOPROL XL) 100 mg Take 100 mg by mouth. - pantoprazole DR (PROTONIX) 40 mg tablet Take 40 mg by mouth once daily. - Pramipexole 0.75 mg tablet Take 0.75 mg by mouth. - guaiFENesin (MUCINEX) 600 mg 12 hr tablet Take 1,200 mg by mouth. - budesonide (PULMICORT) 0.5 mg/2 mL nebulizer solution 0.5 mg. - arformoterol (BROVANA) 15 mcg/2 mL nebulizer solution 15 mcg. - fluticasone (FLONASE) 50 mcg/actuation nasal spray 2 Sprays. - Ipratropium (ATROVENT HFA) 17 mcg/actuation inhaler Inhale 2 Puffs as instructed. - amLODIPine (NORVASC) 5 mg tablet Take 5 mg by mouth. - alendronate (FOSAMAX) 70 mg tablet Take 1 tablet by mouth one time a week. - atorvastatin (LIPITOR) 40 mg tablet Take 40 mg by mouth. - biotin 5 mg capsule Take 5 mg by mouth. - escitalopram oxalate (LEXAPRO) 20 mg tablet Take 20 mg by mouth. - gabapentin (NEURONTIN) 300 mg capsule Take 300 mg by mouth daily at bedtime. - revefenacin (YUPELRI) 175 mcg/3 mL solution for nebulization 175 mcg. - losartan (COZAAR) 100 mg tablet Take 100 mg by mouth. Problem List As Of Date: 04/04/2024 (None) Prescriptions ordered this encounter Disp Refills Start End SODIUM CHLORIDE 1,000 MG SOLUBLE TAB* 10 t* 0 04/08/2024 04/18/2024 Route: ORAL Sig: Take 1 tablet by mouth once daily for 10 days. Encounter Status:Closed by RD LEBLANC on 04/09/24 [facility] CNOVon 03-19-2024 CNOV Office Visit (URFMOB ) SVETLANA ADRIAN ([id number]) 1955 F Date Time Provider Department 03/19/24 1:30 PM ALEJANDRO WARE During your visit today, we recorded the following information about you: Pulse Blood pressure 81/minute 116/61 Alejandro Ware MD 03/19/2024 1:21 PM Addendum [facility] NEW PATIENT HISTORY AND PHYSICAL EXAM PATIENT INFO: Svetlana Adrian 68 year old REFERRING M.D.: No referring provider defined for this encounter. CHIEF COMPLAINT: Bladder cancer HISTORY:Svetlana Adrian is a 68 year old female presents [...] talked about medical complications, such as cardiac (OK, etc), respiratory (pneumonia, etc), renal (Acute kidney [...] of cancer (more content not included)... Normal [facility] C Urineon 03-02-2024 Bacteria identified Cx [...] Locations R1: This test was performed at: [facility], [address] [place] [address], [address]- , , [facility] Comment on above: Performed By: #### 2 [id number] #### [facility] [address] [place] [id number] Ambulatory Visit Summaryon 0 02-29-2024 Ambulatory Visit Summary Ambulatory Visit Summary SVETLANA ADRIAN :1955 Visit Date:02/29/2024 Ambulatory Visit Instructions Your [...] Someone Will Contact You Regarding These Appointments [facility] [place] External Ambulatory Referral, Service not offered at [facility] [place], Urology, Dr. Ware @ [facility], 02/29/24 9:34:00 EDT, Bladder cancer Medications [...] Materia (more content not included)... Normal [facility] Urology Office/Clinic Noteon 02-29-2024 Urology Office/Clinic Note [...] to move forward with radical cystectomy at [facility]. -Will refer to Dr. Ware at [facility] for robotic radical cystectomy. -Start Zofran 4mg q6hrs prn for nausea/vomiting 2. UTI (urinary tract infection) (N39.0: Urinary tract infection, site not specified) Recently went to [facility], after TURBT, due to UTI, bladder pain radiating to back. Took oxybutynin but pain didn't improve so presented to ER. Currently taking cipro, UCx pseudomonas is sensitive to it. chicken tender around suprapubic region. Azo helps slightly. Symptoms improving CT AP 01/30/24 at [facility]- bladder wall thickening/ possible cystitis (on review, likely from malignancy/recent TURBT, no evidence of perforation or hydro). UA today shows small blood, + nitrates, and large leuks. Burning starting to recur. Recommended cranberry supplement for UTI prevention. Discussed starting estrogen cream to help with vaginal atrophy and UTI prevention. -Urine sent for cul (more content not included)... Normal [facility] Comment on above: Result Comment: Elec tronically Signed By: Lin Dalton MD\.br\Date and Time Signed: 02/29/24 10:06 EDT\.br\Electronically Co-Signed By: Myrna Goodrich\.br\Date and Time Co-Signed: 02/29/24 09:46 EDT [place] 02-04-2024 Screens [id number]#1 .00TIFF Normal [facility] Pathology Noteon 02-01-2024 Pathology Note [id number]#1 .00TIFF Normal [facility] Patient Educationon 02-01-20 Patient Education Oncology Bladder [...] Follow these instructions at home: ? Take owcy-hpx-tubuhiu and prescription medicines only as told by [...] important. Where to find more information ? [place] [employer] (ACS): cancer.org ? National Cancer [place] (NCI): cancer.gov Contact a health care provider [...] wi (more content not included)... [facility] Provider Letteron 02-01-2024 Provider Letter February 01, 2024 SVETLANA ADRIAN [address] [place] [address] : 1955 To Whom It May Concern, Please excuse Sergei Kaylah from patient from work due today 02/01/2024 due to accompanying her mother to and from her appointment. If you have any questions feel free to reach out at the number listed below. Sincerely, [facility] [address] [address] [facility] Urology Office/Clinic Noteon 02-01-2024 Urology Office/Clinic Note Chief Complaint Pt is here for PO TURBT HPI Staff F/u to review path report from TURBT done 01/23/24. Last seen in office 01/17/24. Dx: bladder mass, gross hematuria, former smoker. CT AP w con and CXR done 01/17/24 at [facility]. S/p cysto done 01/21/24. Dysuria: mild Incomplete [...] chemotherapy. We discussed that there are no tuhx-ox-docs trials comparing cystectomy with bladder preservation therapy. [...] infection, site not specified) Recently went to [facility], after TURBT, due to UTI, bladder pain radiating to back. Took oxybutynin but pain didn't improve so presented to ER. Currently mirta (more content not included)... [facility] Comment on above: Result Comment: Elec tronically Signed By: Sha SINGLETARY, Lin Caldera\.br\Date and Time Signed: 02/01/24 16:30 EDT\.br\Electronically Co-Signed By: Sana Patricia\.br\Date and Time Co-Signed: 02/01/24 14:04 EDT Lab Reportson 01-24-2024 Lab Reports [id number] #1.00TIFF [facility] Operative Reporton Operative Report [id number]#1. 00TIFF [facility] RAD - MISCon 01-24-2024 RAD - MISC [id number]#1 .00TIFF [facility] RAD MISC [id number]#1 .00TIFF [facility] RAD - MISC [id number]#1. 00TIFF [facility] Clay 01-23-2024 L Specimen: [id number] Received: 01/24/24 Status: DAKOTAH Cramer Num: [id number] Spec Type: Surgical Subm Dr: Lin Dalton MD Tissues: A Urinary Bladder - TUR (BLADDER TUMORS) Procedures: HE/10, Gross/Micro L5 Age/ Patient Sex Location Account Attending Physician Svetlana Adrian 68/F [facility] [id number] Lin Dalton MD SPEC NUM: [id number] RECD: 01/24/24 STATUS: DAKOTAH CRAMER NUM: [id number] JULIA: 01/23/[address]: Lin Dalton MD ENTERED: 01/24/24-1310 [facility] DR: Kevin Doe SPEC TYPE: Surgical DEPT: [...] representatively submitted in cassettes A1?A5. CPT Codes 42377 -------- -------- Specimen: [id number] Received: 01/24/24 Status: DAKOTAH Rena Num: [id number] Spec Type: Surgical Subm Dr: Lin Dalton MD Tissues: A Urinary Bladder - TUR (BLADDER TUMORS) Procedures: , Gross/Micro L5 -------- Patient: Svetlana Adrian [id number] (Continued) -------- Signed (signature on file) Pasquale Brumfield MD 01/30/24 1417 Normal [facility] Consent for Procedure/Surger yon 01-22-2024 Consent for Procedure/Surgery [id number]#1. 00TIFF Normal [facility] Urine Cytology ( Labs)on 01-22-2024 Microscopic exam Cytology (U) [Interp] Diagnosis Info Invalid Interpretation Code [facility] Comment on above: Result Comment: A:Ur ine,Urine:Voided Interpretation - MicroScopic Description - Adequacy - Gross Description Site ID:A color Yellow fixative Alcohol Specimen designated Urine received in alcohol preservative and labeled with the patient?s name, consists of 90ml slightly cloudy yellow fluid. Electronically signed by : on: 01/22/2024 15:40:59 Performed By: #### 1 [id number] #### [address] [address] Consent for Procedure/Surger yon 01-21-2024 Consent for Procedure/Surgery [id number]#1 .00TIFF Normal [facility] Consent for Procedure/Surgery [id number]#1. 00TIFF Normal [facility] Consent for Treatmenton 01-11 Consent for Treatment [id number]#1 .00TIFF Normal [facility] Inpatient Patient Summaryon 01-21-2024 Inpatient Patient Summary [place] [id number] Clinical Summary Person Information Name: SVETLANA ADRIAN Age: 68 Years : 1955 Sex: Female PCP: NONE, XXXX Marital Status: Race: White Ethnicity: Non- or Language: Surinamese Visit Id: Visit Reason: BLADDER MASS Speciality: Acuity: Enc Type: Outpatient Med Service: Surgery Arrival: 01/21/2024 08:15:39 Discharge: Dispo Type: Address: [address] [place] [address] [address] [facility] [id number] Provider Notes: Diagnosis: Bladder mass; Gross hematuria [...] - Cystoscopy Discharge Instructions (CUSTOM) [facility] IntraOperative Documentson 0 01-21-2024 IntraOperative Documents [id number] .00TIFF [facility] Main OR Intraoperative Recor don 01-21-2024 Main OR Intraoperative Record IntraOp Document Type FTURO Summary Primary Physician: Lin Dalton MD Finalized Date/Time: 01/21/24 08:55:32 Pt. Name: DAGMAR ADRIANCELINE Ceron/Sex: 1955 Female Med Rec #: [id number] Physician: Lin Dalton MD Financial #: [id number] Pt. Type: O Room/Bed: / Admit/Disch: 01/21/24 [...] Laura C Role Performed Surgeon - Primary Machine Fitter - Primary Scrub - Primary Time In [...] Prep Agents Betadine Solution Skin. Condition Intact, [place], Warm, and Description n/a Dry Additional None [...] 01/21/24 08:55 Jessica Goodrich 01/21/24 08:55 Normal [facility] Main OR Preoperative Recordo n 01-21-2024 Main OR Preoperative Record Holding Area Document Type FTURO Summary Primary Physician: Lin Dalton MD Finalized Date/Time: 01/21/24 08:30:18 Pt. Name: SVETLANA ADRIAN Key De JesusB./Sex: 1955 Female Med Rec #: [id number] Physician: Lin Dalton MD Financial #: [id number] Pt. Type: O Room/Bed: / Admit/Disch: 01/21/24 [...] Reviewed Yes Specimens Collected Last Modified By: SOCTT Fischer RN, Ruthann 01/21/24 08:28:25 Finalized By: SCOTT Fischer RN, Ruthann Document Signatures Signed By: SCOTT Fischer RN, Ruthann 01/21/24 08:28 SCOTT Fischer RN, Ruthann 01/21/24 08:30 Normal [facility] Operative Reporton Operative Report Patient: SVETLANA ADRIAN Age: 68 years Sex: Female : 1955 Associated Diagnoses: None Author: Lin Dalton MD Procedure Operative Information Details: Date/ Time: 01/21/2024 08:52:00. Pre-Op Dx: Gross hematuria (VOK07-LJ R31.0, Discharge, Medical), Bladder mass (TYN12-LO N32.89, Discharge, Medical). Post-Op Dx: Same. Anesthesia [...] mass. Risks/benefits again discussed. CTU 01/17/24 at [facility] - 4.8 x 2.1 cm irregular left bladder wall mass, appears to be continuous with muscle on personal review. No upper tract filling defects, no lymphadenopathy. CXR - no mets. COPD changes (hyperexpansive). Normal [facility] Comment on above: Result Comment: Elec tronically Signed By: Lin Dalton MD\.br\Date and Time Signed: 01/21/24 08:58 EDT Outpatient Surgery Discharge Instructionon 01-21-2024 Outpatient Surgery Discharge Instruction [place] [id number] Patient Discharge Instructions PERSON INFORMATION Name: SVETLANA ADRIAN Date of : 1955 Current Date: 01/21/2024 08:52:07 PHYSICIANS Admitting Physician: Lin Dalton MD Comment: Discharge Diagnosis: Bladder mass; Gross hematuria SVETLANA ADRIAN has been given the following list of [...] to serve you. Thank you for choosing [facility] Normal [facility] ED Note-Physicianon 01-18-20 ED Note-Physician [id number]#1 .00TIFF Normal [facility] RAD - CT Reporton 01-18-20[address] RAD - CT Report [id number]#1. 00TIFF Normal [facility] RAD - CT Report [id number]#1 .00TIFF Normal [facility] RAD - MISCon 01-18-2024 RAD - MISC [id number]#1 .00TIFF Normal [facility] RAD - MISC [id number]#1. 00TIFF Normal [facility] Urology Office/Clinic Noteon 01-18-2024 Urology Office/Clinic Note HPI Staff 68 year old female New Pt. seen in [facility] 01/13/24 due to hematuria associated with dysuria [...] new to our office due to recent [facility] ER visit for gross hematuria and suspected bladder mass. Hx of COPD. Not currently on oxygen. States her stats are in the 90s. Pt here with granddaughter today. BBS 26 Hx of partial hysterectomy. 1. Bladder mass (N32.89: Other specified disorders of bladder) Pt presented to [facility] ER 01/13/24 for eval of hematuria that [...] UTI. CT AP wo IV con 01/13/24 [facility] - shows asymmetric focal thickening of the [...] on any blood thinners. No hx of OK or stroke. Pt states her doctor thinks she may of had a stroke when she had COVID, but never confirmed. -Present to the ER if pt is unable to void due to clots -Increase fluids to prevent clots -Urine sent for cytology today -Will schedule CT AP w/ IV and delayed phase to complete urogram @ [facility] STAT prior to TURBT for staging -CXR [...] for indwell (more content not included)... Normal [facility] Comment on above: Result Comment: Elec tronically Signed By: Lin Dalton MD\.br\Date and Time Signed: 01/18/24 09:40 EDT Ambulatory Visit Summaryon 0 01-17-2024 Ambulatory Visit Summary SVETLANA ADRIAN :1955 Visit Date:01/17/2024 Ambulatory Visit Instructions Your [...] including vitamins, herbs, eye drops, creams, and xcni-hve-ifttcbw medicines. ? Any problems you or family members have had with anesthetic medicines. ? Any bleeding problems you have. ? Any surgeries you have had. ? Any medical conditions you have, including recent urinary tract infections. ? Whether you are or may be . What are the risks? General (more content not included)... Normal [facility] Formson 01-17-2024 Forms [id number]#1. 00TIFF [facility] Patient Educationon 01-17-20 Patient Education Oncology Transurethral Resection of Bladder [...] including vitamins, herbs, eye drops, creams, and hdll-dzq-pbdfmwx medicines. ? Any problems you or family [...] tells you to take them. ? Taking qcpv-prw-suymlzh medicines, vitamins, herbs, and supplements. General instructions [...] as y (more content not included)... Normal [facility] Screenson 01-17-2024 Screens [id number]#1 .00TIFF Normal [facility] Urine Cytology ([facility])on 0 01-17-2024 Method of Extraction Voided Normal [facility] Comment on above: Performed By: #### 1 [id number] #### [facility] [address] [place] [address] UC Number of Jars 1 Invalid Interpretation Code [facility] Comment on above: Performed By: #### 1 [id number] #### [facility] [address] [place] [address] Specimen Urine Normal [facility] Comment on above: Performed By: #### 1 [id number] #### [facility] [address] [place] [address] Type of Service Technical Only Normal [facility] Comment on above: Performed By: #### 1 [id number] #### [facility] [address] 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) Centrilobular emphysema (492.8) (J43.2) Former smoker (V15.82) (Z87.891) HTN (hypertension) (401.9) (I10) Mixed hyperlipidemia (272.2) (E78.2) Overweight with body mass index (BMI) of 26 to 26.9 in adult (278.02,V85.22) (E66.3,Z68.26) Orders Overweight with body mass index (BMI) of 26 to 26.9 in adult Healthy Weight Tips; Status:Complete - Retrospective Authorization; Done: 96Vfq1921 Some eating tips that can help you lose weight.; Status:Complete - Retrospective Authorization; Done: 47Hhw9663 SocHx: Former smoker Tobacco Use Screening; Status:Complete; Done: 82Csm4645 Patient Instructions Please bring all medicines, vitamins, [...] and pharmacologic stress test Chief Complaint SVETLANA ADRIAN is being seen for results mpl [...] negative for complaint. Vitals Vital Signs Recorded: 93Gqv0261 10:39AM Heart Rate76, L Radial Wosdgcmd917, LUE, Sitting Ofnjpslpu77, LUE, Sitting Height4 ft 11 in Cwtowz792 lb BMI Cjqugomjjj19.86 kg/m2 BSA Calculated1.55 Tobacco Useb) No PHQ-2 [...] Pulmonary: n (more content not included)... Normal [employer] Tobacco Screening.on 023 Adult depression screening assessment No [facility] y 250 DO Work Phone: Fall risk assessment a) No falls within the last year [facility] Work Phone: Tobacco use status CPHS b) No [facility] y 250 DO Work Phone: Echocardiogramon 03-09-2023 Echocardiography [facility] [address] [place] [address], Suite [facility], [place] [address] TRANSTHORACIC ECHOCARDIOGRAM REPORT Patient Name: SVETLANA ADRIAN Edgar Physician: [id number] Benny Holguin MD Study Date: 03/09/2023 Referring Physician: BENNY HOLGUIN MRN/PID: [id number] PCP: Accession/Order#: [id number] Department Location: [facility] Date of : 1955 Fellow: Gender: F Nurse: Admit Date: Drywall Worker: Fatuma Vidales RDCS, RVT Height: 149.86 cm CC Report to: Weight: 59.88 kg Study Type: Echocardiogram BSA: 1.55 m2 Blood Pressure: 140 /78 mmHg Diagnosis/ICD: R06.00-Dyspnea, unspecified Indication: HTN, Hyperlipidemia, Former Smoker, Centrilobular Emphysema, Alpha-1 Antitrysin Deficiency, Overweight Procedure/CPT: Echo Complete w Full Doppler-89825 Study Detail: The following Echo studies were [...] 0.8 m/s (0.6-0.9m/s) PV Max P.7 mmHg [id number] Benny Holguin MD Electronically signed on 03/10/2023 at 4:28:00 PM Final Normal [facility] CARDIAC STRESS/REST INJE CTIONon 03-09-2023 [facility] CARDIAC STRESS/REST INJECTION Patient Name: SVETLANA ADRIAN STUDY: MYOCARDIAL PERFUSION STRESS TEST WITH LEXISCAN Performing facility: [facility], [address] [place] [address], [address], [place] [address] [facility] Provider: Benny Holguin MD PCP: Dr. David Allan Supervising provider: Polina Palomino MD, [facility] INDICATION: Dyspnea HISTORY: Gender: F; Age: 67 y/o ; Height: 0 cm; Weight: 0 kg. High Cholesterol; HTN; SOB; COPD; Emphysema Quit smoking 3.5 years ago. COMPARISON: No comparison. ACCESSION NUMBER(S): [id number]; [id number]; [id number] ORDERING CLINICIAN: BENNY HOLGUIN TECHNIQUE: ONE DAY protocol. 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 : dyspnea Overweight with body mass index (BMI) of 26 to 26.9 in adult Healthy Weight Tips; Status:Complete; Done: 58Yub7706 Some eating tips that can help you lose weight.; Status:Complete; Done: 72Fbv1066 SocHx: Former smoker Tobacco Use Screening; Status:Complete; Done: 94Qkg8071 Patient Instructions Please bring all medicines, vitamins, [...] Follow up after testing Chief Complaint SVETLANA ADRIAN is being seen for a consultation [...] AM Social History Problems Former smoker (V15.82) (Z87.893) No alcohol use No caffeine use No [...] no sei (more content not included)... Normal [employer] Tobacco Screening.on 023 Adult depression screening assessment No [facility] 250 DO Work Phone: Fall risk assessment b) One or more fall s in the last year [facility] [employer] y 250 DO Work Phone: Tobacco use status CPHS b) No [facility] The [employer] 250 DO Work Phone: XR CHEST 2 [...] by: FRANCIS ANDERSON Date: 2022-10-17 15:20 Normal [facility] CT LUNG CANCER SCREENINGon 0 [...] THERESA LUCIA Date: 2022-08-17 07:32 Normal [facility] PROF 14(COMP METB)on 022 Albumin [Mass/Vol] 3.9 g/dL Normal 3.4-5.0 [facility] Comment on above: Performed By: #### C MP #### [facility] [address] [place] [address] [address] Shelby Rodriguez Albumin/Globulin [Mass ratio] 1.2 {ratio} Normal [facility] Comment on above: Performed By: #### C MP #### [facility] [address] [place] [address] [address] Shelby Rodriguez ALP [Catalytic activity/Vol] 60 U/L Normal 46-116 [facility] Comment on above: Performed By: #### C MP #### [facility] [address] [place] [address] [address] Shelby Rodriguez ALT [Catalytic activity/Vol] 35 U/L Normal 14-59 [facility] Comment on above: Performed By: #### C MP #### [facility] [address] [place] [address] [address] Shelby Rodriguez Anion gap [Moles/Vol] 10.3 mmol/L Normal [facility] Comment on above: Performed By: #### C MP #### [facility] [address] [place] [address] [address] Shelby Rodriguez AST [Catalytic activity/Vol] 22 U/L Normal 15-37 [facility] Comment on above: Performed By: #### C MP #### [facility] [address] [place] [address] Dr. Shelby Rodriguez Bilirubin [Mass/Vol] 0.5 mg/dL Normal 0.2-1.0 [facility] Comment on above: Performed By: #### C MP #### [facility] [address] [place] [address] Dr. Shelby Rodriguez Calcium [Mass/Vol] 9.4 mg/dL Normal 8.5-10.1 [facility] Comment on above: Performed By: #### C MP #### [facility] [address] [place] [address] Dr. Shelby Rodriguez Chloride [Moles/Vol] 105 mmol/L Normal 98-107 [facility] Comment on above: Performed By: #### C MP #### [facility] [address] [place] [address] Dr. Shelby Rodriguez CO2 [Moles/Vol] 30.5 mmol/L Normal 21.0-32.[address] [facility] Comment on above: Performed By: #### C MP #### [facility] [address] [place] [address] Dr. Shelby Rodriguez Creatinine [Mass/Vol] 0.87 mg/dL Normal 0.55-1.02 [facility] Comment on above: Performed By: #### C MP #### [facility] [address] [place] [address] Dr. Shelby Rodriguez EGFR-AF ANGUILLAN >60 Normal >=[address] [facility] Comment on above: Performed By: #### C MP #### [facility] [address] [place] [address] Dr. Shelby Rodriguez EGFR-NON AF ANGUILLAN >60 Normal >=60 [facility] Comment on above: Performed By: #### C MP #### [facility] [address] [place] [address] Dr. Shelby Rodriguez Globulin (S) [Mass/Vol] 3.2 g/dL Normal [facility] Comment on above: Performed By: #### C MP #### [facility] [address] [place] [address] Dr. Shelby Rodriguez Glucose [Mass/Vol] 122 mg/dL Critically high 74-106 T [facility] Comment on above: Performed By: #### C MP #### [facility] [address] [address] [address] Shelby Rodriguez Potassium [Moles/Vol] 4.8 mmol/L Normal 3.5-5.1 [facility] Comment on above: Performed By: #### C MP #### [facility] [address] [place] [address] Dr. Shelby Rodriguez Protein [Mass/Vol] 7.1 g/dL Normal 6.4-8.2 [facility] Comment on above: Performed By: #### C MP #### [facility] [address] [place] [address] Dr. Shelby Rodriguez Sodium [Moles/Vol] 141 mmol/L Normal 136-145 [facility] Comment on above: Performed By: #### C MP #### [facility] [address] [place] [address] Dr. Shelby Rodriguez Urea nitrogen [Mass/Vol] 14.0 mg/dL Normal 7.0-18.0 [facility] Comment on above: Performed By: #### C MP #### [facility] [address] [place] [address] Dr. Shelby Rodriguez Urea nitrogen/Creatinine [Mass ratio] 16.1 mg/mg Normal [facility] Comment on above: Performed By: #### C MP #### [facility] [address] [address] [address] Shelby Rodriguez Vital Signs Date Time Vital Sign Value Performing Clinician Facility 07-16-2024 14:27-0500 Body height 149.[address] Ford NP Work Phone: [facility] 07-16-2024 14:27-0500 Body mass index (BMI) [Ratio] 18.3 kg/m2 Rd Ford BREADMAN Work Phone: [facility] 07-16-2024 14:27-0500 Body temperature 98.49 [degF] Rd Ford BREADMAN Work Phone: [facility] 07-16-2024 14:27-0500 Body weight 41.[address] BREADMAN Work Phone: [facility] 07-16-2024 14:27-0500 Diastolic blood pressure 84 mm[Hg] Rd Ford BREADMAN Work Phone: [facility] 07-16-2024 14:27-0500 Heart rate 145 /min Rd Ford BREADMAN Work Phone: [facility] 07-16-2024 14:27-0500 Respiratory rate 20 /min Rd Ford BREADMAN Work Phone: [facility] 07-16-2024 14:27-0500 SaO2% (BldA) [Mass fraction] 98 % Rd Ford BREADMAN Work Phone: [facility] 07-16-2024 14:27-0500 Systolic blood pressure 120 mm[Hg] Rd Ford BREADMAN Work Phone: [facility] 07-01-2024 10:44-0500 Body mass index (BMI) [Ratio] 20 kg/m2 Rd Ford BREADMAN Work Phone: [facility] 07-01-2024 10:44-0500 Body temperature 98.01 [degF] Rd Ford BREADMAN Work Phone: [facility] 07-01-2024 10:44-0500 Body weight 44.[address] Ford BREADMAN Work Phone: [facility] 07-01-2024 10:44-0500 Diastolic blood pressure 82 mm[Hg] Rd Ford BREADMAN Work Phone: [facility] 07-01-2024 10:44-0500 Heart rate 82 /min Rd Kevinpatrick BREADMAN Work Phone: [facility] 07-01-2024 10:44-0500 Respiratory rate 16 /min Rd Kevinpatrick BREADMAN Work Phone: [facility] 07-01-2024 10:44-0500 SaO2% (BldA) [Mass fraction] 98 % Rd Kevinpatrick BREADMAN Work Phone: [facility] 07-01-2024 10:44-0500 Systolic blood pressure 108 mm[Hg] Rd Kevinpatrick BREADMAN Work Phone: [facility] 06-20-2024 09:44-0500 Body height 150.7 cm Masha Knight APRN.BUSINESS ADMINISTRATION PROGRAM CHAIR Work Phone: [facility] 06-20-2024 09:44-0500 Body mass index (BMI) [Ratio] 18.76 kg/m2 Masha Knight APRN.BUSINESS ADMINISTRATION PROGRAM CHAIR Work Phone: [facility] 06-20-2024 09:44-0500 Body temperature 97.3 [degF] Masha Knight APRN.BUSINESS ADMINISTRATION PROGRAM CHAIR Work Phone: [facility] 06-20-2024 09:44-0500 Body weight 42.6 kg Masha Knight APRN.BUSINESS ADMINISTRATION PROGRAM CHAIR Work Phone: [facility] 06-20-2024 09:44-0500 Diastolic blood pressure 53 mm[Hg] Masha Knight APRN.BUSINESS ADMINISTRATION PROGRAM CHAIR Work Phone: [facility] 06-20-2024 09:44-0500 Heart rate 71 /min Masha Knight APRN.BUSINESS ADMINISTRATION PROGRAM CHAIR Work Phone: [facility] 06-20-2024 09:44-0500 Respiratory rate 18 /min Masha Knight APRN.BUSINESS ADMINISTRATION PROGRAM CHAIR Work Phone: [facility] 06-20-2024 09:44-0500 SaO2% (BldA) [Mass fraction] 95 % Masha Knight APRN.BUSINESS ADMINISTRATION PROGRAM CHAIR Work Phone: [facility] 06-20-2024 09:44-0500 Systolic blood pressure 94 mm[Hg] Masha Knight APRN.BUSINESS ADMINISTRATION PROGRAM CHAIR Work Phone: [facility] 06-06-2024 09:36-0400 Body height 150.7 cm [address] Henry Work Phone: [facility] 06-06-2024 09:36-0400 Body mass index (BMI) [Ratio] 19.24 kg/m2 Chair Henry Work Phone: [facility] 06-06-2024 09:36-0400 Body temperature 98.2 [degF] Chair Xenia Work Phone: [facility] 06-06-2024 09:36-0400 Body weight 43.7 kg Chair Henry Work Phone: [facility] 06-06-2024 09:36-0400 Diastolic blood pressure 69 mm[Hg] Chair Henry Work Phone: [facility] 06-06-2024 09:36-0400 Heart rate 113 /min Chair Henry Work Phone: [facility] 06-06-2024 09:36-0400 Respiratory rate 20 /min Chair Henry Work Phone: [facility] 06-06-2024 09:36-0400 SaO2% (BldA) [Mass fraction] 98 % Chair Henry Work Phone: [facility] 06-06-2024 09:36-0400 Systolic blood pressure 132 mm[Hg] Chair Henry Work Phone: [facility] 05-30-2024 09:52-0400 Body height 150.7 cm Lee Dunn MD Work Phone: [facility] 05-30-2024 09:52-0400 Body mass index (BMI) [Ratio] 19.55 kg/m2 Lee Dunn MD Work Phone: [facility] 05-30-2024 09:52-0400 Body temperature 97.3 [degF] Lee Dunn MD Work Phone: [facility] 05-30-2024 09:52-0400 Body weight 44.4 kg Lee Dunn MD Work Phone: [facility] 05-30-2024 09:52-0400 Diastolic blood pressure 63 mm[Hg] Lee Dunn MD Work Phone: [facility] 05-30-2024 09:52-0400 Heart rate 59 /min Lee Dunn MD Work Phone: [facility] 05-30-2024 09:52-0400 Respiratory rate 18 /min Lee Dunn MD Work Phone: [facility] 05-30-2024 09:52-0400 SaO2% (BldA) [Mass fraction] 100 % Lee Dunn MD Work Phone: [facility] 05-30-2024 09:52-0400 Systolic blood pressure 116 mm[Hg] Lee Dunn MD Work Phone: [facility] 05-16-2024 09:50-0400 Body temperature 98.1 [degF] Chair Xenia Work Phone: [facility] 05-16-2024 09:50-0400 Diastolic blood pressure 69 mm[Hg] Chair Henry Work Phone: [facility] 05-16-2024 09:50-0400 Heart rate 61 /min Chair Henry Work Phone: [facility] 05-16-2024 09:50-0400 Respiratory rate 18 /min Chair Henry Work Phone: [facility] 05-16-2024 09:50-0400 SaO2% (BldA) [Mass fraction] 98 % Chair Henry Work Phone: [facility] 05-16-2024 09:50-0400 Systolic blood pressure 136 mm[Hg] Chair Henry Work Phone: [facility] 05-09-2024 09:15-0400 Body height 150.7 cm Doris Severiano PA-C Work Phone: [facility] 05-09-2024 09:15-0400 Body mass index (BMI) [Ratio] 20.25 kg/m2 Doris Severiano PA-C Work Phone: [facility] 05-09-2024 09:15-0400 Body temperature 97.59 [degF] Doris Severiano PA-C Work Phone: [facility] 05-09-2024 09:15-0400 Body weight 46 kg Doris Severiano PA-C Work Phone: [facility] 05-09-2024 09:15-0400 Diastolic blood pressure 59 mm[Hg] Doris Severiano PA-C Work Phone: [facility] 05-09-2024 09:15-0400 Heart rate 99 /min Doris Severiano PA-C Work Phone: [facility] 05-09-2024 09:15-0400 Respiratory rate 16 /min Doris Severiano PA-C Work Phone: [facility] 05-09-2024 09:15-0400 SaO2% (BldA) [Mass fraction] 95 % Doris Severiano PA-C Work Phone: [facility] 05-09-2024 09:15-0400 Systolic blood pressure 100 mm[Hg] Doris Severiano PA-C Work Phone: [facility] 04-25-2024 15:20-0400 Diastolic blood pressure 70 mm[Hg] Chair Henry Work Phone: [facility] 04-25-2024 15:20-0400 Systolic blood pressure 127 mm[Hg] Chair Henry Work Phone: [facility] 04-25-2024 08:21-0400 Body mass index (BMI) [Ratio] 21.36 kg/m2 Lee Dunn MD Work Phone: [facility] 04-25-2024 08:21-0400 Body temperature 97.11 [degF] Lee Dunn MD Work Phone: [facility] 04-25-2024 08:21-0400 Body weight 48.5 kg Lee Dunn MD Work Phone: [facility] 04-25-2024 08:21-0400 Diastolic blood pressure 83 mm[Hg] Lee Dunn MD Work Phone: [facility] 04-25-2024 08:21-0400 Heart rate 76 /min Lee Dunn MD Work Phone: [facility] 04-25-2024 08:21-0400 Respiratory rate 18 /min Lee Dunn MD Work Phone: [facility] 04-25-2024 08:21-0400 SaO2% (BldA) [Mass fraction] 93 % Lee Dunn MD Work Phone: [facility] 04-25-2024 08:21-0400 Systolic blood pressure 123 mm[Hg] Lee Dunn MD Work Phone: [facility] 04-18-2024 10:33-0400 Body height 150.7 [address] Xenia Work Phone: [facility] Comment on above: Verified 04-18-2024 10:33-0400 Body mass index (BMI) [Ratio] 21.09 kg/m2 Chair Xenia Work Phone: [facility] 04-18-2024 10:33-0400 Body temperature 97.7 [degF] Chair Michaels Work Phone: [facility] 04-18-2024 10:33-0400 Body weight 47.9 kg Chair Michaels Work Phone: [facility] 04-18-2024 10:33-0400 Diastolic blood pressure 63 mm[Hg] Chair Henry Work Phone: [facility] 04-18-2024 10:33-0400 Heart rate 97 /min Chair Xenia Work Phone: [facility] 04-18-2024 10:33-0400 Respiratory rate 18 /min Chair Henry Work Phone: [facility] 04-18-2024 10:33-0400 SaO2% (BldA) [Mass fraction] 95 % Chair Xenia Work Phone: [facility] 04-18-2024 10:33-0400 Systolic blood pressure 119 mm[Hg] Chair Xenia Work Phone: [facility] 04-04-2024 15:58-0400 Body temperature 97.39 [degF] Lee Dunn MD Work Phone: [facility] 04-04-2024 15:58-0400 Body weight 49.2 kg Lee Dunn MD Work Phone: [facility] 04-04-2024 15:58-0400 Diastolic blood pressure 77 mm[Hg] Lee Dunn MD Work Phone: [facility] 04-04-2024 15:58-0400 Heart rate 96 /min Lee Dunn MD Work Phone: [facility] 04-04-2024 15:58-0400 Respiratory rate 16 /min Lee Dunn MD Work Phone: [facility] 04-04-2024 15:58-0400 SaO2% (BldA) [Mass fraction] 93 % Lee Dunn MD Work Phone: [facility] 04-04-2024 15:58-0400 Systolic blood pressure 125 mm[Hg] Lee Dunn MD Work Phone: [facility] 02-29-2024 09:05-0400 Blood Pressure Location Lin Lue [facility] 02-29-2024 09:05-0400 Diastolic blood pressure 86 mm[Hg] Lin Lue [facility] 02-29-2024 09:05-0400 Heart rate 64 /min Lin Lue [facility] 02-29-2024 09:05-0400 Respiratory rate 16 /min Lin Lue [facility] 02-29-2024 09:05-0400 Systolic blood pressure 142 mm[Hg] Lin Lue [facility] 02-01-2024 13:20-0400 Body temperature 98.6 [degF] Lin Lue [facility] 02-01-2024 13:20-0400 Diastolic blood pressure 61 mm[Hg] Lin Lue [facility] 02-01-2024 13:20-0400 Heart rate 72 /min Lin Lue [facility] 02-01-2024 13:20-0400 Respiratory rate 16 /min Lin Lue [facility] 02-01-2024 13:20-0400 Systolic blood pressure 125 mm[Hg] Lin Lue [facility] 11-28-2023 15:41-0400 Body height 149.9 cm Benny Holguin MD Work Phone: [facility] 11-28-2023 15:41-0400 Body mass index (BMI) [Ratio] 25.45 kg/m2 Benny Holguin MD Work Phone: [facility] 11-28-2023 15:41-0400 Body weight 57.15 kg Benny Holguin MD Work Phone: [facility] 11-28-2023 15:41-0400 Diastolic blood pressure 80 mm[Hg] Benny Holguin MD Work Phone: [facility] 11-28-2023 15:41-0400 Heart rate 66 /min Benny Holguin MD Work Phone: [facility] 11-28-2023 15:41-0400 Systolic blood pressure 130 mm[Hg] Benny Holguin MD Work Phone: [facility] 09-24-2023 18:05-0500 Body height 149.9 cm Shaikh Jerrell SINGLETARY Work Phone: [facility] 09-24-2023 18:05-0500 Body mass index (BMI) [Ratio] 24.64 kg/m2 Shaikh Jerrell SINGLETARY Work Phone: [facility] 09-24-2023 18:05-0500 Body temperature 97 [degF] Shaikh Jerrell SINGLETARY Work Phone: [facility] 09-24-2023 18:05-0500 Body weight 55.34 kg Shaikh Jerrell SINGLETARY Work Phone: [facility] 09-24-2023 18:05-0500 Diastolic blood pressure 80 mm[Hg] Shaikh Jerrell SINGLETARY Work Phone: [facility] 09-24-2023 18:05-0500 Heart rate 90 /min Shaikh Jerrell SINGLETARY Work Phone: [facility] 09-24-2023 18:05-0500 SaO2% (BldA) [Mass fraction] 97 % Shaikh Jerrell SINGLETARY Work Phone: [facility] 09-24-2023 18:05-0500 Systolic blood pressure 132 mm[Hg] Shaikh Jerrell SINGLETARY Work Phone: [facility] 03-30-2023 10:39-0400 Body height 149.86 cm Tsemariaa Gaticaalvin Work Phone: [facility] [address] DO Work Phone: 03-30-2023 10:39-0400 Body mass index (BMI) [Ratio] 26.86 kg/m2 Tsenatasha Gaticaalvin Work Phone: [facility] [address] DO Work Phone: 03-30-2023 10:39-0400 Body surface area Derived from formula 1.55 m2 Shaikh Gavialvin Work Phone: [facility] [address] DO Work Phone: 03-30-2023 10:39-0400 Body weight 60.33 kg Shaikh Jerrell Work Phone: [facility] [address] DO Work Phone: 03-30-2023 10:39-0400 Diastolic blood pressure 70 mm[Hg] Tsemariaa Farrwaalvin Work Phone: [facility] [address] DO Work Phone: 03-30-2023 10:39-0400 Heart rate 76 /min Shaikh Marywad Work Phone: [facility] [address] DO Work Phone: 03-30-2023 10:39-0400 Systolic blood pressure 122 mm[Hg] Shaikh Pujawwad Work Phone: [facility] [address] DO Work Phone: 01-26-2023 11:30-0400 Diastolic blood pressure 92 mm[Hg] Shaikh Pujawwad Work Phone: [facility] [address] DO Work Phone: 01-26-2023 11:30-0400 Systolic blood pressure 164 mm[Hg] Fawwad Work Phone: [facility] [address] DO Work Phone: 01-26-2023 11:29-0400 Body height 149.86 cm Shaikh Marywad Work Phone: [facility] 250 DO Work Phone: 01-26-2023 11:29-0400 Body mass index (BMI) [Ratio] 26.66 kg/m2 Shaikh Pujawwad Work Phone: [facility] [address] DO Work Phone: 01-26-2023 11:29-0400 Body surface area Derived from formula 1.55 m2 Shaikh Marywad Work Phone: [facility] [address] DO Work Phone: 01-26-2023 11:29-0400 Body weight 59.88 kg Shaikh Marywad Work Phone: [facility] [address] DO Work Phone: 01-26-2023 11:29-0400 Diastolic blood pressure 100 mm[Hg] Shaikh Pujawwad Work Phone: [facility] [address] DO Work Phone: 01-26-2023 11:29-0400 Heart rate 91 /min Shaikh Pujawwad Work Phone: [facility] [address] DO Work Phone: 01-26-2023 11:29-0400 Systolic blood pressure 184 mm[Hg] Shaikh Jerrell Work Phone: [facility] DO Work Phone: Encounters Encounter Date Encounter Type Care Provider Facility Start: 07-16-2024 End: 07-16-2024 Office outpatient visit [address] Selfk BREADMAN Work Phone: [facility] Comment on above: Dyspnea on exertion (Primary Dx); COPD, severe (CMS/HCC); COPD exacerbation (CMS/HCC) Start: 07-16-2024 End: 07-16-[address] Chungtrick BREADMAN Work Phone: [facility] Start: 07-16-2024 End: 07-16-[address] Chungtrick BREADMAN Work Phone: [facility] Start: 07-15-2024 End: 07-15-2024 Refill Elizabeth Bradshaw MA [facility] Comment on above: Primary hypertension (CMS/HCC); Pain in right hip; Gastroesophageal reflux disease without esophagitis Start: 07-11-2024 End: 07-11-2024 ambulatory [facility] Facility:[facility] Start: 07-11-2024 End: 07-11-2024 Subsequent hospital visit by physician Arrival Time Radiology Work Phone: Radiology [facility] Comment on above: Malignant neoplasm o f urinary bladder, unspecified site (HCC) [C67.9] Start: 07-01-2024 End: 07-01-[address] Kevinpatrick BREADMAN Work Phone: [facility] Start: 07-01-2024 End: 07-01-[address] Ford BREADMAN Work Phone: [facility] Start: 07-01-2024 End: 07-01-2024 Office outpatient visit [address] Selfk BREADMAN Work Phone: [facility] Comment on above: COPD, severe (CMS/HC C) (Primary Dx); Mixed hyperlipidemia (CMS/HCC); Primary hypertension (CMS/HCC); Restless legs syndrome Start: 07-01-2024 End: 07-01-[address] FORD Not Available Start: 06-26-2024 End: 06-27-[address] Work Phone: Nutrition Therapy Start: 06-26-2024 End: 06-26-[address]oss [address] Work Phone: Nutrition Therapy Comment on above: Nutrition Telephone Start: 06-23-2024 End: 06-23-2024 Telephone encounter Masha Knight APRN.BUSINESS ADMINISTRATION PROGRAM CHAIR Work Phone: Hematology/Oncology Comment on above: Orders Start: 06-20-2024 End: 06-24-2024 Telephone encounter Masha Knight APRN.BUSINESS ADMINISTRATION PROGRAM CHAIR Work Phone: [facility] Comment on above: Appointment Start: 06-20-2024 End: 06-20-2024 Patient encounter procedure Masha Knight APRN.BUSINESS ADMINISTRATION PROGRAM CHAIR Work Phone: Hematology/Oncology Start: 06-20-2024 End: 06-20-2024 ambulatory Chair 9 Xenia Work Phone: Hematology/Oncology Comment on above: Malignant neoplasm o f overlapping sites of bladder (HCC) (Primary Dx) Malignant neoplasm o f urinary bladder, unspecified site (HCC) (Primary Dx); Malignant neoplasm of overlapping sites of bladder (HCC) Start: 06-06-2024 End: 06-06-[address] Work Phone: Nutrition Therapy Start: 06-06-2024 End: 06-06-[address]ia Goss RD Work Phone: Nutrition Therapy Comment on above: Nutrition Telephone Start: 06-06-2024 End: 06-06-2024 ambulatory Chair 8 Xenia Work Phone: Hematology/Oncology Comment on above: Malignant neoplasm o f overlapping sites of bladder (HCC) (Primary Dx) Start: 05-30-2024 End: 05-30-2024 Office outpatient visit 25 minutes Lee Dunn MD Work Phone: Hematology/Oncology Comment on above: Malignant neoplasm o f overlapping sites of bladder (HCC) (Primary Dx); Chemotherapy-induced fatigue Start: 05-30-2024 End: 06-02-2024 Social Work Krystal Paige [facility] Hematology/Oncology Comment on above: Malignant neoplasm o f overlapping sites of bladder (HCC) (Primary Dx) Start: 05-23-2024 End: 05-26-[address] Work Phone: Nutrition Therapy Start: 05-23-2024 End: 05-23-[address]ia Goss RD Work Phone: Nutrition Therapy Comment on above: Nutrition Telephone Start: 05-16-2024 End: 05-16-2024 Social Work Krystal Paige [facility] Hematology/Oncology Comment on above: Malignant neoplasm o f overlapping sites of bladder (HCC) (Primary Dx) Start: 05-09-2024 End: 05-09-2024 Office outpatient visit 15 minutes Doris Dupree PA-C Work Phone: Hematology/Oncology Comment on above: Malignant neoplasm o f overlapping sites of bladder (HCC) (Primary Dx); Encounter for antineoplastic chemotherapy; Chemotherapy-induced fatigue; Chemotherapy-induced neuropathy (HCC); Chemotherapy-induced nausea Start: 05-09-2024 End: 05-09-2024 ambulatory Chair Oleg Michaels Work Phone: Hematology/Oncology Comment on above: Malignant neoplasm o f overlapping sites of bladder (HCC) (Primary Dx) Start: 05-02-2024 End: 05-05-[address] Work Phone: Nutrition Therapy Start: 05-02-2024 End: 05-02-[address]24 Nutrition therapy [address]ia Goss RD Work Phone: Nutrition Therapy Comment on above: Nutrition Telephone Start: 04-25-2024 End: 04-25-2024 Office outpatient visit 25 minutes Lee Dunn MD Work Phone: Hematology/Oncology Comment on above: Malignant neoplasm o f overlapping sites of bladder (HCC) (Primary Dx) Start: 04-25-2024 End: 04-25-2024 Social Work Krystal Paige [employer] Hematology/Oncology Comment on above: Malignant neoplasm o f overlapping sites of bladder (HCC) (Primary Dx) Start: 04-24-2024 End: 04-24-[address] Work Phone: Nutrition Therapy Start: 04-24-2024 End: 04-24-[address]ia Goss RD Work Phone: Nutrition Therapy Comment on above: Nutrition Telephone (No answer/) Start: 04-24-2024 End: 04-24-2024 Telephone encounter Lee Dunn MD Work Phone: Hematology/Oncology Comment on above: Lab Orders Start: 04-24-2024 ambulatory KATIA GOSS Fa cility:[facility] Start: 04-22-2024 End: 05-06-2024 Telephone encounter Sergei Carpenter RN Work Phone: Hematology/Oncology Comment on above: Care Coordination (C 1D1 Post Treatment Call) Treatment Planning Start: 04-18-2024 End: 04-18-2024 ambulatory Chair Manuela Michaels Work Phone: Hematology/Oncology Comment on above: Malignant neoplasm o f overlapping sites of bladder (HCC) (Primary Dx) Start: 04-17-2024 End: 04-18-[address] Work Phone: Nutrition Therapy Start: 04-17-2024 End: 04-18-[address]ia Goss [address] Work Phone: Nutrition Therapy Comment on above: Nutrition Telephone Start: 04-10-2024 End: 04-11-2024 Telephone encounter Sergei Carpenter RN Work Phone: Hematology/Oncology Comment on above: Care Coordination (N utrition Referral) Start: 04-10-2024 End: 04-10-2024 ambulatory Sergei Carpenter RN Work Phone: Hematology/Oncology Comment on above: First Time Treatment Education (Gemcitabine & Cisplatin) Start: 04-08-2024 End: 04-10-2024 Telephone encounter Sergei Carpenter RN Work Phone: Hematology/Oncology Comment on above: Care Coordination (A ntiemetics) Drug/Drug Interactio n (Prochlorperazine/Pramipexole) Start: 04-07-2024 End: 04-07-2024 ambulatory LEE DUNN Facility:[facility] Start: 04-04-2024 End: 04-04-2024 ambulatory LEE DUNN Facility:[facility] Start: 04-04-2024 End: 04-04-2024 Office outpatient new 60 minutes Lee Dunn MD Work Phone: Hematology/Oncology Comment on above: Malignant neoplasm o f overlapping sites of bladder (HCC) (Primary Dx) Start: 04-04-2024 End: 04-09-2024 Telephone encounter Lee Dunn MD Work Phone: [facility] Comment on above: Appointment Start: 04-02-2024 End: 04-02-2024 Chart abstracting Lee Dunn MD Work Phone: Hematology/Oncology Start: 03-31-2024 End: 03-31-[address] FORD Not Available Start: 03-19-2024 End: 03-19-2024 ambulatory ALEJANDRO WARE Facility:[facility] Start: 02-29-2024 End: 02-29-2024 Lab Drop off Lin Dalton [facility] Start: 02-29-2024 End: 02-29-2024 ambulatory Lin Dalton Facility:[facility] [place] Start: 02-29-2024 End: 02-29-2024 Patient encounter procedure Lin Dalton [facility] [place] Start: 02-01-2024 End: 02-01-2024 ambulatory Lin M. Lue Facility:[facility] Start: 02-01-2024 End: 02-01-2024 Patient encounter procedure Lin M. Lue [facility] [place] Start: 01-31-2024 End: 01-31-2024 ambulatory SHAIKH MARYANDERSON Not Available Start: 01-23-2024 End: 01-23-2024 ambulatory Lin M Lue [facility] Work Phone: Start: 01-23-2024 End: 01-23-2024 Departed Referred MD Lin Dalton Work Phone: [facility] Start: 01-23-2024 End: 01-23-2024 ambulatory Lin M. Lue Facility:CD:[id number] Start: 01-21-2024 End: 01-21-2024 ambulatory Lin M. Lue Facility:[facility] [place] Start: 01-21-2024 End: 01-21-2024 Patient encounter procedure Lin M. Lue [facility] Start: 01-17-2024 End: 01-17-2024 Lab Drop off Lin M. Lue [facility] Start: 01-17-2024 End: 01-17-2024 ambulatory Lin M. Lue Facility:[facility] [place] Start: 01-17-2024 End: 01-17-2024 Patient encounter procedure Lin M. Lue [facility] [place] Start: 01-14-2024 ambulatory Lin Lue Facility:[facility] Start: 12-31-2023 End: 12-31-2023 ambulatory TSE PUJARajKIYAD Not Available Start: 11-28-2023 End: 11-28-2023 ambulatory BENNY HOLGUIN [facility] Ambulatory Start: 11-28-2023 End: 11-28-2023 Office outpatient visit 15 minutes Benny Holguin MD Work Phone: [facility] Comment on above: Shortness of breath (Primary Dx); Essential hypertension; Mixed hyperlipidemia; Ttioc-1-[id number] deficiency (Multi); Centrilobular emphysema (Multi); Former smoker; BMI 25.0-25.9,adult Start: 11-14-2023 End: 11-14-2023 ambulatory SHAIKH JERRELL Not Available Start: 09-24-2023 End: 09-24-2023 Office outpatient visit 15 minutes Shaikh Jerrell SINGLETARY Work Phone: [facility] Comment on above: Current moderate epi sode of major depressive disorder without prior episode (HCC) (CMS/HCC) (Primary Dx) Start: 09-24-2023 End: 09-24-2023 Orders Only Shaikh Jerrell SINGLETARY Work Phone: [facility] Comment on above: Primary hypertension (CMS/HCC) (Primary Dx) Start: 08-23-2023 End: 08-23-2023 ambulatory SHAIKH JERRELL Not Available Start: 08-02-2023 Patient encounter procedure Shaikh Jerrell SINGLETARY Work Phone: [facility] Start: 08-02-2023 End: 08-02-2023 ambulatory SHAIKH JERRELL Not Available Start: 03-30-2023 Office outpatient vi sit 15 minutes Shaikh Jerrell Work Phone: [facility] 250 DO Work Phone: Start: 03-30-[address] Benny Holguin Facility: Start: 03-11-2023 Chart Update Shaikh Jerrell Work Phone: [facility] 250 DO Work Phone: Start: 03-10-2023 Chart Update Shaikh Jerrell Work Phone: [facility] 250 DO Work Phone: Start: 03-09-[address] Benny Holguin Facility:[id number] Start: 01-26-2023 Office consultation new/estab patient 60 min Shaikh Gavialvin Work Phone: [facility] 250 DO Work Phone: Start: 01-26-[address] Benny Holguin Facility: Start: 01-02-2023 ambulatory ÁLVAROJOANIE HUTSON . Facility :H1 Start: 10-17-2022 End: 10-18-2022 ambulatory ÁLVAROJOANIE HUTSON . Facility:[facility] Start: 08-16-2022 End: 08-17-2022 ambulatory ÁLVAROJOANIE HUTSON . Facility:[facility] Start: 04-20-2022 End: 04-21-2022 ambulatory SHAIKH Natasha ALLAN Facility:[facility]1 Procedures Date Procedure Procedure Detail Performing Clinician Start: 07-11-2024 Ct abdomen & pelvis w/o contrst 1/> body re Masha Knight [employer] SALES [employer] STORAGE MANAGER.BUSINESS ADMINISTRATION PROGRAM CHAIR Work Phone: Start: 07-11-2024 Ct thorax w/contrast material Masha Knight MEAT SALES AND STORAGE MANAGER.BUSINESS ADMINISTRATION PROGRAM CHAIR Work Phone: Start: 07-11-2024 CREATININE BLD Masha oconnor MEAT SALES AND STORAGE MANAGER.BUSINESS ADMINISTRATION PROGRAM CHAIR Work Phone: Start: 06-06-2024 Blood count complete auto&auto difrntl wbc Lee Dunn MD Work Phone: Start: 05-16-2024 Blood count complete auto&auto difrntl wbc Doris Dupree PA-C Work Phone: Start: 04-18-2024 Comprehensive metabo lic panel Lee Dunn MD Work Phone: Start: 03-10-[address] mar BREADMAN Work Phone: Start: 01-23-2024 Transurethral resect ion of bladder neoplasm Lin Dalton Start: 01-21-2024 Cystoscopy normal (finding) Lin Dalton Start: 03-09-2023 Echocardiography Tse Jerrell Work Phone: Start: 03-04-2023 Mammography Shaikh Mary salazar MD Work Phone: Start: 09-11-2017 Colonoscopy Shaikh Mary salazar MD Work Phone: Appendectomy Shaikh Jerrell Work Phone: Cataract surgery Shaikh Huy coley Work Phone: Colonoscopy Shaikh Jerrell Work Phone: Hysterectomy Shaikh Jerrell Work Phone: Partial hysterectomy Lin angelo Surgical procedure o n eye proper Shaikh Jerrell Work Phone: Plan of Treatment Date Care Activity Detail Author Start: 04-25-2031 Urine microalbumin profile DTaP,Tdap,Td Vaccine (2 - Tdap) [facility] Start: 09-11-2027 Screening for malign ant neoplasm of colon [facility] Start: 06-20-2027 Diabetes Screening Diabetes Screen[facility] Start: 06-06-2027 Diabetes Screening Diabetes Screenin [facility] Start: 05-30-2027 Diabetes Screening Diabetes Screenin [facility] Start: 05-16-2027 Diabetes Screening Diabetes Screenin [facility] Start: 05-09-2027 Diabetes Screening Diabetes Screenin [facility] Start: 04-25-2027 Diabetes Screening Diabetes Screenin [facility] Start: 04-18-2027 Diabetes Screening Diabetes Screenin [facility] Start: 04-07-2027 Diabetes Screening Diabetes Screenin [facility] Start: 03-10-2025 Screening for malign ant neoplasm of breast Mammogram [facility] Start: 10-01-2024 End: 10-01-2024 Patient encounter procedure 10/01/2024 9:30 AM EST Office Visit [facility] [address] [place] [phone] Emerson Pinto MD [address] [place] [id number] [facility] Start: 09-02-2024 End: 09-02-2024 Patient encounter procedure 09/02/2024 1:30 PM EST Office Visit [facility] [address] [facility] [address] [place] [id number] Benny Holguin MD [address] [facility] [place] [address] [facility] Start: 08-02-2024 Medicare Annual Well ness (AWV) Medicare Annual Wellness (AWV) [facility] Start: 07-30-2024 End: 07-30-2024 Patient encounter procedure 07/30/2024 1:10 PM EST Office Visit Urology [address] [place] [address] Alejandro Ware MD [address] [place], [place] [id number] FOLLOW UP AFTER SCANS Urology Comment on above: FOLLOW UP AFTER SCAN S Start: 07-18-2024 End: 07-18-2024 Nutrition therapy 07/18/2024 3:00 PM EST Education Nutrition Therapy [address] [facility] [place] [address] [place] [address] phone f/u Nutrition Therapy Comment on above: phone f/u Start: 07-16-2024 End: 07-16-2024 Patient encounter procedure 07/16/2024 2:30 PM EST Office Visit [facility] [address] [place] [phone] Rd Ford NP [address] [place] [address] Arrived [facility] Comment on above: Arrived Start: 07-11-2024 End: 10-10-2024 CREATININE BLD CREATININE BLD Lab Routine Malignant neoplasm of overlapping sites of bladder (HCC) Expected: 07/11/2024 (Approximate), Expires: 10/10/2024 [facility] Work Phone: Comment on above: Expected: 07/11/2024 (Approximate), Expires: 10/10/2024 Start: 07-11-2024 End: 07-11-2024 Patient encounter procedure 07/11/2024 10:15 AM EST Appointment Radiology Pet CT [address] [facility] [place] [address] CT CHEST + UROGRAM Radiology Pet CT Comment on above: CT CHEST + UROGRAM Start: 07-01-2024 End: 07-01-2024 Patient encounter procedure 07/01/2024 10:30 AM EST Office Visit [facility] [address] [place] [address] Rd Ford NP [address] [place] [address] Arrived [facility] Comment on above: Arrived Start: 06-26-2024 End: 06-26-2024 Nutrition therapy 06/26/2024 3:00 PM EST Education Nutrition Therapy [address] [place] [address] [place] [address] phone f/u Nutrition Therapy Comment on above: phone f/u Start: 06-20-2024 End: 06-20-2024 ambulatory Hematology/Oncology Comment on above: weekly Chemo tx Cis Dickenson Start: 06-20-2024 End: 06-20-2024 Patient encounter procedure 06/20/2024 9:45 AM EST Office Visit [facility] [address] [facility] [place] [address] weekly Chemo tx Cis Dickenson [facility] Comment on above: weekly Chemo tx Cis Dickenson Start: 06-06-2024 End: 06-06-2024 Nutrition therapy 06/06/2024 2:15 PM EDT Education Nutrition Therapy [address] [facility] [place] [address] [place] [address] phone f/u Nutrition Therapy Comment on above: phone f/u Start: 06-06-2024 End: 06-06-2024 ambulatory 06/06/2024 9:30 AM EDT Infusion Center Hematology/Oncology [address] [facility] [place] [address] weekly Chemo tx Cis Dickenson Hematology/Oncology Comment on above: weekly Chemo tx Cis Dickenson Start: 05-30-2024 End: 05-30-2024 ambulatory Hematology/Oncology Comment on above: weekly Chemo tx Cis Dickenson Start: 05-30-2024 End: 05-30-2024 Patient encounter procedure 05/30/2024 9:45 AM EDT Office Visit [facility] [address] [place] [address] weekly Chemo tx Cis Dickenson [facility] Comment on above: weekly Chemo tx Cis Dickenson Start: 05-23-2024 End: 05-23-2024 Nutrition therapy 05/23/2024 3:00 PM EDT Education Nutrition Therapy [address] [place] [address] [place] [address] phone f/u Nutrition Therapy Comment on above: phone f/u Start: 05-16-2024 End: 05-16-2024 ambulatory 05/16/2024 10:00 AM EDT Infusion Center Hematology/Oncology [address] [place] [address] weekly Chemo tx Cis Dickenson Hematology/Oncology Comment on above: weekly Chemo tx Cis Dickenson Start: 05-09-2024 End: 05-09-2024 ambulatory Hematology/Oncology Comment on above: weekly Chemo tx Cis Dickenson Start: 05-09-2024 End: 05-09-2024 Patient encounter procedure 05/09/2024 9:15 AM EDT Office Visit [facility] [address] [facility] [place] [address] weekly Chemo tx Cis Dickenson [facility] Comment on above: weekly Chemo tx Cis Dickenson Start: 05-02-2024 End: 05-02-2024 Nutrition therapy 05/02/2024 3:00 PM EDT Education Nutrition Therapy [address] [place] [address] Katia Goss, ROMA [address] [place] [address] phone f/u Nutrition Therapy Comment on above: phone f/u Start: 04-25-2024 End: 04-24-2025 CBC W Auto Differential panel - Blood COMPLETE BLOOD COUNT AND DIFFERENTIAL Lab Routine Malignant neoplasm of overlapping sites of bladder (HCC) Expected: 04/25/2024 (Approximate), Expires: 04/24/2025 [facility] Work Phone: Comment on above: Expected: 04/25/2024 (Approximate), Expires: 04/24/2025 Start: 04-25-2024 End: 04-24-2025 Comprehensive metabolic 2000 panel - Serum or Plasma COMPREHENSIVE METABOLIC PANEL Lab Routine Malignant neoplasm of overlapping sites of bladder (HCC) Expected: 04/25/2024 (Approximate), Expires: 04/24/2025 [facility] Comment on above: Expected: 04/25/2024 (Approximate), Expires: 04/24/2025 Start: 04-25-2024 End: 04-25-2024 ambulatory Hematology/Oncology Comment on above: weekly Chemo tx Cis Dickenson Start: 04-25-2024 End: 04-25-2024 Patient encounter procedure 04/25/2024 8:30 AM EDT Office Visit [facility] [address] [place] [address] weekly Chemo tx Cis Dickenson [facility] Comment on above: weekly Chemo tx Cis Dickenson Start: 04-24-2024 End: 04-24-2024 Nutrition therapy 04/24/2024 2:15 PM EDT Education Nutrition Therapy [address] [place] [address] [place] [address] phone f/u Nutrition Therapy Comment on above: phone f/u Start: 04-18-2024 End: 04-18-2024 ambulatory 04/18/2024 10:00 AM EDT Infusion Center Hematology/Oncology [address] [place] [address] Xenia, Chair [address] [place] [address] [place] [address] Chemo tx Cis Dickenson per phone encounter Hematology/Oncology Comment on above: Chemo tx Cis Dickenson per phone encounter Start: 04-17-2024 End: 04-17-2024 Nutrition therapy 04/17/2024 2:15 PM EDT Education Nutrition Therapy [address] [place] [address] Katia Goss, ROMA [address] [place] [address] Malignant neoplasm of overlapping sites of bladder (HCC) [C67.8] Nutrition Therapy Comment on above: Malignant neoplasm o f overlapping sites of bladder (HCC) [C67.8] Start: 04-13-2024 Covid-19 Vaccine ( season) Covid-19 Vaccine ( season) [facility] Start: 04-13-2024 Covid-19 Vaccine ( season) Covid-19 Vaccine ( season) [facility] Start: 04-13-2024 Influenza vaccination Influenza Vacc ine (#1) [facility] Start: 04-10-2024 End: 04-10-2024 Nursing evaluation of patient and report Hematology/Oncology Comment on above: Chemo ed Cis gem Chemo ed Cis gem / p t is scheduled for New Start on 04-18-24. No appt for Dr Bailey. Sent phone encounter no respose as of yet. Start: 04-04-2024 End: 04-04-2024 ambulatory 04/04/2024 4:00 PM EDT Visit (SP) Office Hematology/Oncology [address] [place] [address] Lee Dunn MD [address] [place] [address] [place] [address] Evaluation of Neoadjuvant chemotherapy for muscle invasive bladder cancer Hematology/Oncology Comment on above: Evaluation of Neoadj uvant chemotherapy for muscle invasive bladder cancer Start: 04-04-2024 End: 04-04-2025 Comprehensive metabolic 2000 panel - Serum or Plasma COMPREHENSIVE METABOLIC PANEL Lab Routine Malignant neoplasm of overlapping sites of bladder (HCC) Expected: 04/04/2024, Expires: 04/04/2025 [facility] Work Phone: Comment on above: Expected: 04/04/2024 , Expires: 04/04/2025 Start: 03-04-2024 Screening for malign ant neoplasm of breast Mammogram [facility] Start: 11-22-2023 End: 11-22-2023 Patient encounter procedure 11/22/2023 11:30 AM EDT Office Visit [facility] [address] [place] [phone] Shaikh Allan MD [address] [place] [address] [facility] Start: 10-05-2023 FUV, Provider: Benny Holguin, Status: Pen, Time: 9:20 AM FUV, Provider: Benny Holguin, Status: Pen, Time: 9:20 AM [facility] 250 DO Work Phone: Start: 09-24-2023 End: 09-24-2023 Patient encounter procedure 09/24/2023 5:45 PM EST Office Visit [facility] [address] [place] [address] Shaikh Allan MD [address] [place] [address] [facility] Start: 08-13-2023 Advance Directive Discussion Advance Directive Discussion [facility] Start: 04-13-2023 COVID-19 Vaccine ( season) COVID-19 Vaccine ( season) [facility] Start: 03-30-2023 FUV, Provider: Benny Holguin, Status: Pen, Time: 10:30 AM FUV, Provider: Benny Holguin, Status: Pen, Time: 10:30 AM [facility] 250 DO Work Phone: Start: 03-09-2023 ECHO, Provider: JOHN PAUL CHANEL [facility] ULTRASOUND 01,[id number], Status: Pen, Time: 10:45 AM ECHO, Provider: XENIA [facility]VI ULTRASOUND 01,[id number], Status: Pen, Time: 10:45 AM -[facility] 250 DO Work Phone: Start: 03-09-2023 STRESS NUC, Provider : XENIA [facility] NUCLEAR 01,[id number], Status: Pen, Time: 8:30 AM STRESS NUC, Provider: XENIA [facility] NUCLEAR 01,[id number], Status: Pen, Time: 8:30 AM -[facility] 250 DO Work Phone: Start: 04-26-2021 DTaP/Tdap/Td Vaccine s (1 - Tdap) DTaP/Tdap/Td Vaccines (1 - Tdap) [facility] Start: 2018 Screening for osteoporosis Bone Density Screening [facility] Start: 2013 Hepatitis B Vaccines (1 of 3 - Risk 3-dose series) Hepatitis B Vaccines (1 of 3 - Risk 3-dose series) [facility] Start: 1998 Diabetes Screening Diabetes Screenin g [facility] Start: 1998 Lipid panel Lipid Screening [facility] Start: 1998 Screening for malign ant neoplasm of colon [facility] Start: 1993 Screening for malign ant neoplasm of breast [facility] Start: 1972 Hepatitis A Vaccines (1 of 2 - Risk 2-dose series) Hepatitis A Vaccines (1 of 2 - Risk 2-dose series) [facility] Start: 1971 Anxiety Screening Anxiety Screening [facility] Start: 1971 Depression Screening Depression Scre ening [facility] Start: 1971 Diabetes mellitus screening Diabetes Screening [facility] Start: 1971 Hepatitis C screening Hepatitis C Sc reening [facility] Start: 1964 Screening for malign ant neoplasm of cervix Cervical Cancer Screening [facility] Start: 1953 Lipid panel Lipid Panel [facility] Start: 1953 Medicare Annual Well ness Visit Medicare Annual Wellness Visit (AWV) [facility] Start: 1953 Screening for malign ant neoplasm of colon [facility] Start: 1953 Screening for osteoporosis Bone Density Scan [facility] Comprehensive metabo lic 2000 panel - Serum or Plasma COMPREHENSIVE METABOLIC PANEL Lab Routine Malignant neoplasm of overlapping sites of bladder (HCC) 04/07/2024 11:35 AM EDT [facility] End: 07-20-2025 CT Abdomen W contrast IV CT ABDOMEN W IVCON Radiology Routine Malignant neoplasm of urinary bladder, unspecified site (HCC) Malignant neoplasm of overlapping sites of bladder (HCC) 1 Occurrences starting 06/20/2024 until 07/20/2025 [facility] Comment on above: 1 Occurrences starti ng 06/20/2024 until 07/20/2025 End: 07-20-2025 CT Chest W contrast IV CT CHEST W IVCON Radiology Routine Malignant neoplasm of urinary bladder, unspecified site (HCC) 1 Occurrences starting 06/20/2024 until 07/20/2025 [facility] Comment on above: 1 Occurrences starti ng 06/20/2024 until 07/20/2025 End: 07-20-2025 CT Kidney WO and W contrast IV CT UROGRAM WO/W IVCON Radiology Routine Malignant neoplasm of urinary bladder, unspecified site (HCC) 1 Occurrences starting 06/20/2024 until 07/20/2025 [facility] Work Phone: Comment on above: 1 Occurrences starti ng 06/20/2024 until 07/20/2025 IR PORTOCATH PLACEMENT IR PORTOC ATH PLACEMENT Radiology Routine Malignant neoplasm of overlapping sites of bladder (HCC) Ordered: 04/08/2024 [facility] Work Phone: Comment on above: Ordered: 04/08/2024 Immunizations Immunization Date Immunization Notes Care Provider Puja sun 05-24-2024 influenza, high dose seasonal, preservative-free Krystal Paige [facility] 04-22-2024 respiratory syncytia l virus (RSV) vaccine, bivalent (ABRYSVO) Krystal Paige [facility] 05-26-2023 ABRYSVO - Respirator y syncytial virus (RSV), vaccine, bivalent, protein subunit RSV prefusion F, diluent reconstituted, 0.5 mL, PF Shaikh Jerrell SINGLETARY Work Phone: [facility] 05-24-2023 influenza virus vaccine, unspecified formulation Lin Dalton [facility] 05-24-2023 Influenza, High-dose Seasonal, Quadrivalent, Preservative Free Shaikh Jerrell SINGLETARY Work Phone: [facility] 05-24-2023 Pneumococcal Conjuga te PCV 20 Shaikh Jerrell SINGLETARY Work Phone: [facility] 05-03-2023 pneumococcal conjuga te 20-valent (Prevnar 20) 0.5 ML vaccine Shaikh Jerrell SINGLETARY Work Phone: [facility] 10-27-2022 zoster vaccine recombinant Shaikh Jerrell Work Phone: [facility] 250 DO Work Phone: 08-27-2022 zoster vaccine recombinant Shaikh Jerrell Work Phone: [facility] 250 DO Work Phone: 06-03-2022 Fluzone High-Dose Quadrivalent 0.7 ML Intramuscular Suspension Prefilled Syringe Shaikh Jerrell Work Phone: [facility] 250 DO Work Phone: 06-03-2022 influenza virus vaccine, unspecified formulation Lin Sha [facility] 06-03-2022 influenza, seasonal, injectable Benny Holguin MD Work Phone: [facility] Work Phone: 08-03-2021 Pfizer-BioNTech COVID-19 Vacc 30 MCG/0.3ML Intramuscular Suspension Tse Jerrell Work Phone: [facility] 06-02-2021 Fluzone High-Dose Quadrivalent 0.7 ML Intramuscular Suspension Prefilled Syringe Shaikh Jerrell Work Phone: [facility] 250 DO Work Phone: 06-02-2021 influenza virus vaccine, unspecified formulation Lin Dalton [facility] 04-25-2021 diphtheria, tetanus toxoids and pertussis vaccine Tse Jerrell Work Phone: [facility] 04-25-2021 tetanus and diphther ia toxoids, adsorbed, preservative free, for adult use (2 Lf of tetanus toxoid and 2 Lf of diphtheria toxoid) Benny Holguin MD Work Phone: [facility] Work Phone: 12-23-2020 Pfizer-BioNTech COVID-19 Vacc 30 MCG/0.3ML Intramuscular Suspension Tse Jerrell Work Phone: [facility] 12-02-2020 Pfizer-BioNTech COVID-19 Vacc 30 MCG/0.3ML Intramuscular Suspension Tse Marywaalvin Work Phone: [facility] 07-21-2014 influenza virus vaccine, unspecified formulation Lin Dalton [facility] 07-21-2014 influenza, seasonal, injectable Tse Fawwad Work Phone: [place] [address] DO Work Phone: 06-21-2013 influenza virus vaccine, unspecified formulation Lin Lue [facility] 06-21-2013 influenza, seasonal, injectable Tse Fawwad Work Phone: [place] [address] DO Work Phone: 08-31-2012 influenza virus vaccine, unspecified formulation Lin Lue [facility] 08-31-2012 influenza, seasonal, injectable, preservative free Tse Fawwad Work Phone: [place] [address] DO Work Phone: Payers Date Payer Category Payer Self-pay [id number] 2018 Medicare [id number] 2018 Private Health Insurance [id number] 1959 Medicare [id number] 1959 Private Health Insurance [facility] [id number] 1953 Unknown [id number] 2.16.84 [id number] 1953 Unknown [id number] 2.16.84 [id number] 1953 Unknown [id number] 2.16.84 [id number] 1953 Unknown [id number] 2.16.84 [id number] 1953 Unknown [id number] 2.16. [id number] 1953 Unknown [id number] 2.16. [id number] 1953 Unknown [id number] 2.16. [id number] 1953 Unknown [id number] 2.16.8 [id number] 1953 Unknown [id number] 2.16.8 [id number] 1953 Unknown [id number] 2.16.8 [id number] 1955 Unknown [id number] 2.16.8 [id number] 1955 Unknown [id number] 2.16.8 40.1.070197.3.579.2.727 1955 Unknown [id number] 2.16.8 40.1.639389.3.579.2.727 1955 Unknown [id number] 2.16.8 40.1.897329.3.579.2.727 1955 Unknown [id number] 2.16.8 40.1.162131.3.579.2.727 1955 Unknown [id number] 2.16.8 40.1.016552.3.579.2.727 1955 Unknown [id number] 2.16.84 0.1.535637.3.579.2.1259 1955 Unknown [id number] 2.16.84 0.1.730684.3.579.2.1259 1955 Unknown [id number] 2.16.84 0.1.765785.3.579.2.1259 1955 Unknown [id number] 2.16.84 0.1.438675.3.579.2.1259 1955 Unknown [id number] 2.16.84 0.1.009239.3.579.2.1259 1955 Unknown [id number] 2.16.84 0.1.715332.3.579.2.1259 1955 Unknown [id number] 2.16.84 0.1.532908.3.579.2.1259 1955 Unknown [id number] 2.16.840 .1.823103.3.579.2.1259 Medicaid [id number] Private Health Insurance [id number] [id number] Unknown Unknown [id number] 2.16.8 [id number] Social History Date Type Detail Facility Start: 08-29-2023 End: 03-31-2024 No caffeine use No caffeine use [place] [id number] DO Work Phone: Start: 08-29-2023 End: 03-31-2024 Tobacco smoking status [facility] Ex-smoker [facility] Start: 06-28-1975 End: 06-28-2020 History of tobacco use Current smoker [facility] Start: 06-28-1975 End: 06-28-2020 History of tobacco use Cigarette Smoker [facility] Start: 08-29-2023 End: 03-31-2024 Tobacco use and exposure Smokeless tobacco non-user [facility] Start: 08-29-2023 End: 07-16-2024 Alcohol intake Lifetime non-drinker (finding) [facility] Start: 08-29-2023 End: 03-31-2024 Tobacco use panel [facility] Start: 07-18-2023 Alcohol Comment caffeine: 1-2 cups per day [facility] Start: 1955 Sex Assigned At Not on file [facility] Start: 11-18-2023 End: 11-28-2023 Exposure to SARS-CoV-2 (event) Not sure [facility] Start: 1955 Sex Assigned At Female [facility] Tobacco smoking status Never [facility] Tobacco smoking status NHIS Tobacco smoking consumption unknown [facility] Work Phone: NEGATED: Highlighted rowStart: NINF History of tobacco use Passive smoker [facility] Medical Equipment Procedure Code Equipment Code Equipment Original Text Equipment Identifier Dates Phacoemulsification of cataract with intraocular lens implantation LENS ACRYSOF IOL [id number] FDA Start: 09-27-2017 Phacoemulsification of cataract with intraocular lens implantation LENS ACRYSOF IOL [id number] FDA Start: 10-25-2017 Functional Status Date Assessment Result Facility 02-29-2024 Functional Status N/A [facility] 02-01-2024 Functional Status N/A [facility] Clinical Notes 01-26-2023 to 07-16-2024 Rd Ford NP - 07/16/2024 3:05 PM Magan Ford NP - 07/16/2024 2:30 PM ESTPatient InstructionsTelephone Encounter - Elizabeth Bradshaw MA - 07/15/2024 8:52 AM ESTPatient Instructions Note Date & Type Note Facility 07-16-2024 History of Present illness Narrative Associated Problem(s): COPD exacerbation (CMS/HCC) Initially prescribed Levaquin and prednsione X5 days, CXR. Upon examination audible wheezes and tachycardia observed. Due to patients comorbidities made the decision to send patient to the Emergency room for further evaluation and treatment. Images from the original note were not included. Subjective Patient ID: Svetlana Adrian is a 69 y.o. female who presents for Cough and COPD. HPI Finished chemotherapy 1.5 weeks ago. Shortness of breath Productive cough- yellow phlegm/thick Runny nose Low grade fever Headache Denies: Ear pain Sore throat N/V/D States she does not feel as though she is struggling to breathe at rest but with ambulation does have dyspnea. Audible wheezing and tachycardia noted. Respirations easy at rest but tachypnea noted with conversation. Finished chemotherapy 1.5 weeks ago. Review of Systems Constitutional: Positive for fever. Negative for activity change, appetite change, chills, diaphoresis, fatigue and unexpected weight change. HENT: Positive for rhinorrhea. Negative for congestion, ear pain, sinus pressure, sinus pain, sneezing, sore throat, trouble swallowing and voice change. Eyes: Negative for visual disturbance. Respiratory: Positive for cough, shortness of breath and wheezing. Negative for chest tightness. Cardiovascular: Negative for chest pain, palpitations and leg swelling. Gastrointestinal: Negative for abdominal distention, abdominal pain, blood in stool, constipation, diarrhea and vomiting. Genitourinary: Negative for decreased urine volume, dysuria, flank pain, frequency, hematuria and urgency. Musculoskeletal: Negative for arthralgias, gait problem, joint swelling and myalgias. Skin: Negative for rash. Neurological: Negative for dizziness, tremors, syncope, weakness, light-headedness and headaches. Psychiatric/Behavioral: Negative for decreased concentration and suicidal ideas. The patient is not nervous/anxious. Hematological: Does not bruise/bleed easily. Endocrine: Negative for cold intolerance, heat intolerance, polydipsia, polyphagia and polyuria. Objective Physical Exam Vitals reviewed. Constitutional: Appearance: Normal appearance. HENT: Head: Normocephalic and atraumatic. Right Ear: Tympanic membrane normal. Left Ear: Tympanic membrane normal. Nose: Nose normal. Mouth/Throat: Mouth: Mucous membranes are moist. Pharynx: Oropharynx is clear. Eyes: Pupils: Pupils are equal, round, and reactive to light. Cardiovascular: Rate and Rhythm: Regular rhythm. Tachycardia present. Pulses: Normal pulses. Heart sounds: Normal heart sounds. Pulmonary: Effort: Tachypnea present. Breath sounds: Examination of the right-upper field reveals wheezing. Examination of the left-upper field reveals wheezing. Examination of the right-middle field reveals wheezing. Examination of the left-middle field reveals wheezing. Examination of the right-lower field reveals wheezing. Examination of the left-lower field reveals wheezing. Wheezing present. Abdominal: General: Abdomen is flat. Bowel sounds are normal. Palpations: Abdomen is soft. Musculoskeletal: General: Normal range of motion. Cervical back: Normal range of motion. Skin: General: Skin is warm and dry. Capillary Refill: Capillary refill takes less than 2 seconds. Neurological: General: No focal deficit present. Mental Status: She is alert and oriented to person, place, and time. Psychiatric: Mood and Affect: Mood normal. Behavior: Behavior normal. Assessment/Plan Problem List Items Addressed This Visit COPD, severe (CMS/HCC) Dyspnea on exertion - Primary COPD exacerbation (CMS/HCC) Initially prescribed Levaquin and prednsione X5 days, CXR. Upon examination audible wheezes and tachycardia observed. Due to patients comorbidities made the decision to send patient to the Emergency room for further evaluation and treatment. documented in this encounter [facility] 07-16-[address] Ford NP - 07/16/2024 2:30 PM EST documented in this encounter [facility] 07-15-2024 Telephone encounter Note CYNTHIA:07/01/2024 NOV:10/01/2024 [facility] 07-15-2024 Miscellaneous Notes CYNTHIA:07/01/2024 NOV:10/01/2024 documented in this encounter [facility] 07-11-2024 History of Present illness Narrative Radiology Service Progress Note DATE OF SERVICE: July 11, 2024 TIME: 10:08 AM PATIENT WEIGHT: 89LBS PATIENT IDENTITY VERIFICATION COMPLETED USING TWO (2) STANDARD IDENTIFIERS: Name and Date of confirmed by patient verbally. FALL SCREENING: Has the patient had 2 falls in the last year or 1 fall with injury or currently using an Ambulatory Assistive Device (Walker, Cane, Wheelchair, Crutches, etc.)? No PATIENT GENDER DATA: Female. status: : No status: NO. ALLERGIES: Reviewed and unchanged CONTRAST ALLERGY: No EXAM: CT -CONTRAST INDUCED NEPHROPATHY RISK FACTORS: Patient age > 60 years CREATININE: Creatinine Date Value Ref Range Status 07/11/2024 0.76 0.58 - 0.96 mg/dL Final 06/20/2024 0.71 0.58 - 0.96 mg/dL Final 06/06/2024 0.64 0.58 - 0.96 mg/dL Final Comment: Corrected result: Previously reported as 0.66 mg/dL on 06/06/2024 at 11:29 AM EDT. Estimated Glomerular Filtration Rate Date Value Ref Range Status 07/11/2024 84 >=60 mL/min/1.73m Final Comment: Estimated Glomerular Filtration Rate (eGFR) is calculated using the 2020 CKD-EPI creatinine equation. This equation utilizes serum creatinine, sex, and age as parameters. The creatinine assay has traceable calibration to isotope dilution-mass spectrometry. Refer to KDIGO guidelines for clinical interpretation. In patients with unstable renal function, e.g. those with acute kidney injury, the eGFR may not accurately reflect actual GFR. P.O.C.T. RESULTS: POC done: Yes, See Lab Tab July 11, 2024 TREATMENT: N/A IV SITE: Ambulatory: A peripheral IV was started in the Right antecubital site with a Angio cath: 20 gauge. IV SITE APPEARANCE: Clean,Dry and Intact SIGNATURE: Lori Hobbs RN PATIENT NAME: Svetlana Adrian DATE: July 11, 2024 TIME: 10:08 AM Radiology Service Progress Note PATIENT NAME: Svetlana Adrian DATE OF SERVICE: July 11, 2024 TIME: 10:26 AM PATIENT IDENTITY VERIFICATION COMPLETED USING TWO (2) IDENTIFIERS: Name and Date of confirmed by patient verbally. FALL SCREENING: Has the patient had 2 falls in the last year or 1 fall with injury or currently using an Ambulatory Assistive Device (Walker, Cane, Wheelchair, Crutches, etc.)? No PATIENT GENDER DATA: Female. status: : No status: NO. PATIENT RELEVANT IMPLANT DATA REVIEWED: Not Applicable PATIENT PRESENTS WITH AN IMPLANTABLE OR ATTACHED DESKTOP SUPPORT ASSOCIATE: No RADIOLOGY DEPARTMENT: CT; Exam(s) Completed: Chest and Urogram PERIPHERAL IV DATA: Site assessment: Clean,Dry and Intact, Site disposition Discontinued SIGNED BY: RT Jackelyn(R) July 11, 2024 10:26 AM documented in this encounter [facility] 07-11-2024 Note HNO ID: [id number] Author: LORI HOBBS RN Service: ? Author Type: Registered Nurse Type: Progress Notes Filed: 07/11/2024 10:09 Note Text: Radiology Service Progress Note DATE OF SERVICE: July 11, 2024 TIME: 10:08 AM PATIENT WEIGHT: 89LBS PATIENT IDENTITY VERIFICATION COMPLETED USING TWO (2) STANDARD IDENTIFIERS: Name and Date of confirmed by patient verbally. FALL SCREENING: Has the patient had 2 falls in the last year or 1 fall with injury or currently using an Ambulatory Assistive Device (Walker, Cane, Wheelchair, Crutches, etc.)? No PATIENT GENDER DATA: Female. status: : No status: NO. ALLERGIES: Reviewed and unchanged CONTRAST ALLERGY: No EXAM: CT -CONTRAST INDUCED NEPHROPATHY RISK FACTORS: Patient age > 60 years CREATININE: Creatinine Date Value Ref Range Status 07/11/2024 0.76 0.58 - 0.96 mg/dL Final 06/20/2024 0.71 0.58 - 0.96 mg/dL Final 06/06/2024 0.64 0.58 - 0.96 mg/dL Final Comment: Corrected result: Previously reported as 0.66 mg/dL on 06/06/2024 at 11:29 AM EDT. Estimated Glomerular Filtration Rate Date Value Ref Range Status 07/11/2024 84 >=60 mL/min/1.73m? Final Comment: Estimated Glomerular Filtration Rate (eGFR) is calculated using the 2020 CKD-EPI creatinine equation. This equation utilizes serum creatinine, sex, and age as parameters. The creatinine assay has traceable calibration to isotope dilution-mass spectrometry. Refer to KDIGO guidelines for clinical interpretation. In patients with unstable renal function, e.g. those with acute kidney injury, the eGFR may not accurately reflect actual GFR. P.O.C.T. RESULTS: POC done: Yes, See Lab Tab July 11, 2024 TREATMENT: N/A IV SITE: Ambulatory: A peripheral IV was started in the Right antecubital site with a Angio cath: 20 gauge. IV SITE APPEARANCE: Clean,Dry and Intact SIGNATURE: Lori Hobbs RN PATIENT NAME: Svetlana Adrian DATE: July 11, 2024 TIME: 10:08 AM [facility] 07-11-2024 Note HNO ID: [id number] Author: SERGEI EISENBERG RT(R) Service: ? Author Type: Technologist Type: Progress Notes Filed: 07/11/2024 10:27 Note Text: Radiology Service Progress Note PATIENT NAME: Svetlana Adrian DATE OF SERVICE: July 11, 2024 TIME: 10:26 AM PATIENT IDENTITY VERIFICATION COMPLETED USING TWO (2) IDENTIFIERS: Name and Date of confirmed by patient verbally. FALL SCREENING: Has the patient had 2 falls in the last year or 1 fall with injury or currently using an Ambulatory Assistive Device (Walker, Cane, Wheelchair, Crutches, etc.)? No PATIENT GENDER DATA: Female. status: : No status: NO. PATIENT RELEVANT IMPLANT DATA REVIEWED: Not Applicable PATIENT PRESENTS WITH AN IMPLANTABLE OR ATTACHED DESKTOP SUPPORT ASSOCIATE: No RADIOLOGY DEPARTMENT: CT; Exam(s) Completed: Chest and Urogram PERIPHERAL IV DATA: Site assessment: Clean,Dry and Intact, Site disposition Discontinued SIGNED BY: RT Jackelyn(R) July 11, 2024 10:26 AM [facility] 07-01-2024 History of Present illness Narrative Associated Problem(s): Restless leg syndrome, uncontrolled Currently taking Gabapentin 300mg, feels symptoms are not controlled since starting chemotherapy. Would like to increase dosing to 300mg twice daily. RX sent. Associated Problem(s): COPD, severe (CMS/HCC) Following with Dr. Hutson. Taking Brovana Pulmicort Atrovent Yuplerui And Ventolin No exacerbations recently but does report she gets winded more easily since starting chemotherapy. Continue to follow with Pumonology as directed. Associated Problem(s): Hyperlipidemia, unspecified (CMS/HCC) Currently taking Atorvastatin 40g Denies any myalgias. Lipid panel needs done. Order placed. Continue current regimen. Associated Problem(s): Primary hypertension (CMS/HCC) Currently taking amlodipine, losartan, lopressor Checks BP at home; Averages are 120's-130's. Denies orthostatic changes, dizziness, cough, shortness of breath, swelling in extremities. Continue current regimen. Given BP log, advised pt to record BP and bring log back with them to next visit. Images from the original note were not included. Subjective Patient ID: Svetlana Adrian is a 69 y.o. female who presents for COPD. Specialists: Dr. Manning- Urology Dr. Ware- Oncology/[facility] Dr. Howard Finished Chemotherapy for invasive bladder cancer. Is following closely with Dr. Howard. Started chemotherapy in April. Had last infusion 2 weeks ago. Drinking Ensure 2 times per day. Has had weight loss since last OV. Feels she has a good support system at home. Has 4 children and . States she is ready to go if the cancer is terminal, but darling there family wants her to keep fighting. HTN: Currently taking amlodipine, losartan, lopressor Checks BP at home; Averages are 120's-130's. Denies orthostatic changes, dizziness, cough, shortness of breath, swelling in extremities. Continue current regimen. Given BP log, advised pt to record BP and bring log back with them to next visit. HLD: Currently taking Atorvastatin 40g Denies any myalgias. Lipid panel needs done. Order placed. Continue current regimen. COPD: Following with Dr. Hutson. Taking Brovana Pulmicort Atrovent Yuplerui And Ventolin No exacerbations recently but does report she gets winded more easily since starting chemotherapy. Continue to follow with Pumonology as directed. Review of Systems Constitutional: Positive for fatigue. Negative for activity change, appetite change, chills, diaphoresis, fever and unexpected weight change. HENT: Negative for congestion, ear pain, rhinorrhea, sinus pressure, sinus pain, sneezing, sore throat, trouble swallowing and voice change. Eyes: Negative for visual disturbance. Respiratory: Positive for cough and shortness of breath. Negative for chest tightness and wheezing. Cardiovascular: Negative for chest pain, palpitations and leg swelling. Gastrointestinal: Negative for abdominal distention, abdominal pain, blood in stool, constipation, diarrhea and vomiting. Genitourinary: Negative for decreased urine volume, dysuria, flank pain, frequency, hematuria and urgency. Musculoskeletal: Negative for arthralgias, gait problem, joint swelling and myalgias. Skin: Negative for rash. Neurological: Negative for dizziness, tremors, syncope, weakness, light-headedness and headaches. Psychiatric/Behavioral: Negative for decreased concentration and suicidal ideas. The patient is not nervous/anxious. Hematological: Does not bruise/bleed easily. Endocrine: Negative for cold intolerance, heat intolerance, polydipsia, polyphagia and polyuria. Objective Physical Exam Vitals reviewed. Constitutional: Appearance: Normal appearance. HENT: Head: Normocephalic and atraumatic. Right Ear: Tympanic membrane normal. Left Ear: Tympanic membrane normal. Nose: Nose normal. Mouth/Throat: Mouth: Mucous membranes are moist. Pharynx: Oropharynx is clear. Eyes: Pupils: Pupils are equal, round, and reactive to light. Cardiovascular: Rate and Rhythm: Normal rate and regular rhythm. Pulses: Normal pulses. Heart sounds: Normal heart sounds. Pulmonary: Effort: Pulmonary effort is normal. Breath sounds: Normal breath sounds. Abdominal: General: Abdomen is flat. Bowel sounds are normal. Palpations: Abdomen is soft. Musculoskeletal: General: Normal range of motion. Cervical back: Normal range of motion. Skin: General: Skin is warm and dry. Capillary Refill: Capillary refill takes less than 2 seconds. Neurological: General: No focal deficit present. Mental Status: She is alert and oriented to person, place, and time. Psychiatric: Mood and Affect: Mood normal. Behavior: Behavior normal. Assessment/Plan Problem List Items Addressed This Visit COPD, severe (CMS/HCC) - Primary Following with Dr. Hutson. Taking Brovana Pulmicort Atrovent Yuplerui And Ventolin No exacerbations recently but does report she gets winded more easily since starting chemotherapy. Continue to follow with Pumonology as directed. Primary hypertension (CMS/HCC) Currently taking amlodipine, losartan, lopressor Checks BP at home; Averages are 120's-130's. Denies orthostatic changes, dizziness, cough, shortness of breath, swelling in extremities. Continue current regimen. Given BP log, advised pt to record BP and bring log back with them to next visit. Hyperlipidemia, unspecified (CMS/HCC) Currently taking Atorvastatin 40g Denies any myalgias. Lipid panel needs done. Order placed. Continue current regimen. Restless leg syndrome, uncontrolled Currently taking Gabapentin 300mg, feels symptoms are not controlled since starting chemotherapy. Would like to increase dosing to 300mg twice daily. RX sent. Relevant Medications gabapentin (Neurontin) 300 MG capsule documented in this encounter [facility] 06-26-2024 Note Education (NUTRSA) SVETLANA ADRIAN ([id number]) 1955 F Date Time Provider Department 11/14/24 3:00 PM KATIA GOSS Reason for Visit: Nutrition Telephone [2014] Primary Visit Diagnosis:Malignant neoplasm of overlapping sites of bladder (HCC) [C67.8] Other Visit Diagnosis:Severe protein-calorie malnutrition (HCC) [E43] During your visit today, we recorded the following information about you: Allergies As of Date: 06/26/2024 (No Known Allergies) Date Reviewed: 06/26/2024 Reviewed by: Katia Goss RD - Fully Assessed Prescriptions as of 06/26/2024 - ondansetron (ZOFRAN) 8 mg tablet Take 1 tablet by mouth every 8 hours as needed for nausea/vomiting. - ensifentrine (OHTUVAYRE) 3 mg/2.5 mL suspension for nebulization Use 3 mg via nebulizer two times a day. - zinc sulfate (ZINC-15 ORAL) Take by mouth. - meloxicam (MOBIC) 7.5 mg tablet Take 7.5 mg by mouth once daily. - metoprolol succinate ER (TOPROL XL) 100 mg Take 100 mg by mouth. - pantoprazole DR (PROTONIX) 40 mg tablet Take 40 mg by mouth once daily. - Pramipexole 0.75 mg tablet Take 0.75 mg by mouth. - guaiFENesin (MUCINEX) 600 mg 12 hr tablet Take 1,200 mg by mouth. - budesonide (PULMICORT) 0.5 mg/2 mL nebulizer solution 0.5 mg. - arformoterol (BROVANA) 15 mcg/2 mL nebulizer solution 15 mcg. - fluticasone (FLONASE) 50 mcg/actuation nasal spray 2 Sprays. - Ipratropium (ATROVENT HFA) 17 mcg/actuation inhaler Inhale 2 Puffs as instructed. - amLODIPine (NORVASC) 5 mg tablet Take 5 mg by mouth. - alendronate (FOSAMAX) 70 mg tablet Take 1 tablet by mouth one time a week. - atorvastatin (LIPITOR) 40 mg tablet Take 40 mg by mouth. - biotin 5 mg capsule Take 5 mg by mouth. - escitalopram oxalate (LEXAPRO) 20 mg tablet Take 20 mg by mouth. - gabapentin (NEURONTIN) 300 mg capsule Take 300 mg by mouth daily at bedtime. - revefenacin (YUPELRI) 175 mcg/3 mL solution for nebulization 175 mcg. - losartan (COZAAR) 100 mg tablet Take 100 mg by mouth. Encounter Status:Closed by KATIA GOSS on 06/26/24 [facility] 06-26-2024 Note HNO ID: [id number] Author: KATIA GOSS, ROMA Service: ? Author Type: Registered Dietitian Type: Progress Notes Filed: 06/26/2024 15:20 Note Text: Oncology Nutrition Therapy Progress Note I have communicated my name and active licensure. The patient's identity and physical location were verified at the time of this visit. Either the patient or their legal sales promotion representative has been informed of the risks and benefits of -- and alternatives to -- treatment through a remote evaluation and consents to proceed with the evaluation remotely. RECOMMENDED MALNUTRITION DIAGNOSIS: SEVERE PROTEIN-CALORIE MALNUTRITION per RD on 05/23/2024 Some elements copied from my note on 05/23/2024, have been updated and all reflect current decision making from today, 06/26/2024 Nutrition Intervention: -continue small frequent meals/snacks -aim for soft/moist, easy to chew foods -encouraged adequate hydration -aim for at least 60-64 ounces non-caffeine containing fluids -discussed oral nutrition supplements -Ensure Plus High Protein or equivalent; goal 2x per day -May mix with ice cream or frozen fruit to enhance flavor -continue calorie/protein boosting techniques at meals/snacks Nutrition Monitoring AND Evaluation: -PO Intake -Wt status -BM's -Supplement tolerance/acceptance -Biochemical Markers -Plan of care Date of last encounter: June 06, 2024 Patient met goal(s): Partially Patient's symptoms are: Behavioral: altered appetite Patient presents for nutrition counseling for: malignant neoplasm of overlapping sites of bladder Current Treatment: neoadjuvant gemcitabine + cisplatin Previous Treatment(s): s/p TURBT Pt denies any current chewing/swallowing issues. Pt denies any current N/V/D/C. Reports yesterday she had nausea, but this has resolved. Appetite and intakes remain varied. Pt states its getting a little bit better. States she has pleased she has able to have fried tuna oscar sandwich recently and was able to eat the entire sandwich. She is trying to eat more frequently and is supplementing her intakes with ONS and tolerating well. READINESS TO LEARN Cognitive ability: Alert and oriented Motivation to learn: Interested Family support: Unable to assess - Family not present Instruction provided to: Patient Patient learns best by: Individual Instruction Factors affecting learning: None Physical limitations affecting learning: None Educational materials provided: none this visit Need for Follow up: will continue to follow Referred by: Sagar WHITFIELD Billing Type: Re-assess/15 min 1 unit Billed Time: 15 minutes Signed by: Katia Goss RDN, RENETTA [facility] 06-26-2024 History of Present illness Narrative Oncology Nutrition Therapy Progress Note I have communicated my name and active licensure. The patient's identity and physical location were verified at the time of this visit. Either the patient or their legal sales promotion representative has been informed of the risks and benefits of -- and alternatives to -- treatment through a remote evaluation and consents to proceed with the evaluation remotely. RECOMMENDED MALNUTRITION DIAGNOSIS: SEVERE PROTEIN-CALORIE MALNUTRITION per RD on 05/23/2024 Some elements copied from my note on 05/23/2024, have been updated and all reflect current decision making from today, 06/26/2024 Nutrition Intervention: -continue small frequent meals/snacks -aim for soft/moist, easy to chew foods -encouraged adequate hydration -aim for at least 60-64 ounces non-caffeine containing fluids -discussed oral nutrition supplements -Ensure Plus High Protein or equivalent; goal 2x per day -May mix with ice cream or frozen fruit to enhance flavor -continue calorie/protein boosting techniques at meals/snacks Nutrition Monitoring & Evaluation: -PO Intake -Wt status -BM's -Supplement tolerance/acceptance -Biochemical Markers -Plan of care Date of last encounter: June 06, 2024 Patient met goal(s): Partially Patient's symptoms are: Behavioral: altered appetite Patient presents for nutrition counseling for: malignant neoplasm of overlapping sites of bladder Current Treatment: neoadjuvant gemcitabine + cisplatin Previous Treatment(s): s/p TURBT Pt denies any current chewing/swallowing issues. Pt denies any current N/V/D/C. Reports yesterday she had nausea, but this has resolved. Appetite and intakes remain varied. Pt states its getting a little bit better. States she has pleased she has able to have fried tuna oscar sandwich recently and was able to eat the entire sandwich. She is trying to eat more frequently and is supplementing her intakes with ONS and tolerating well. READINESS TO LEARN Cognitive ability: Alert and oriented Motivation to learn: Interested Family support: Unable to assess - Family not present Instruction provided to: Patient Patient learns best by: Individual Instruction Factors affecting learning: None Physical limitations affecting learning: None Educational materials provided: none this visit Need for Follow up: will continue to follow Referred by: Sagar WHITFIELD Billing Type: Re-assess/15 min 1 unit Billed Time: 15 minutes Signed by: Katia Goss RDN, LD documented in this encounter [facility] 06-24-2024 Telephone encounter Note Patient is scheduled 07/30. Rd Leblanc [facility] 06-24-2024 Miscellaneous Notes Patient is scheduled 07/30. Rd Leblanc Patient is now ready to be referred back to Dr. Ware for surgery. Thank you! Rd Leblanc documented in this encounter [facility] 06-23-2024 Telephone encounter Note Please sign pended Cre for upcoming CT-pt on nephrotoxic chemo Thank You! Lori Hobbs RN [facility] 06-23-2024 Miscellaneous Notes Please sign pended Cre for upcoming CT-pt on nephrotoxic chemo Thank You! Lori Hobbs, RN documented in this encounter [facility] 06-20-2024 Note HNO ID: [id number] Author: KRYSTAL PAIGE LSW Service: ? Author Type: Painter Maintenance Type: Progress Notes Filed: 06/20/2024 14:49 Note Text: Social Work Problem Referral Note INFORMATION/REFERRAL : Svetlana Adrian 69 year old female was referred by nurse Amber Celis APRN, CNP to [facility] Social Work for the following reason(s): financial assistance - meals, parking, etc. and transportation PERSONS INTERVIEWED: patient INTERVENTION: Information AND Referral Service Co-ordination Affect/Mood: The patient is noted as distressed and expressing worry IDENTIFIED PROBLEMS/NEEDS: Financial Transportation Intervention/Referral to be provided:Information for community resources/agencies IMPRESSION/PLAN:SW met with Patient and her dtr-in-law in the infusion room. Patient shares that she was denied Medicaid services because she and her have too much household income. Patient is understandably upset. Patient mentioned that [employer] ([facility] [employer] [facility]) is helping her with a new furnace. Patient is not sure when it will be installed, but she hopes soon because her home is cold. Patient said that her roof is leaking and needs repaired. [employer] may be able to assist with that. Patient said that she spoke with [employer] about her washer and dryer that are in need of replacement/ SW will reach out to [employer] ([employer])to follow up. Patient also said that her car is not reliable. She has contacted S about a program that may help her with a vehicle? SW later learned after the Patient had left that she needs transportation assistance for any/all appointments at [facility] (Urology). SW will call Patient to discuss resources and options for transportation. Patient may need to have [employer] help her with transportation costs instead of a washer and dryer. SW will review options and get the Patient's input. Assigned SW listed in Care Team tab: Yes SANJANA Ornelas [facility] 06-20-2024 History of Present illness Narrative Social Work Problem Referral Note INFORMATION/REFERRAL : Svetlana Adrian 69 year old female was referred by nurse Amber Celis APRN, CNP to [facility] Social Work for the following reason(s): financial assistance - meals, parking, etc. and transportation PERSONS INTERVIEWED: patient INTERVENTION: Information & Referral Service Co-ordination Affect/Mood: The patient is noted as distressed and expressing worry IDENTIFIED PROBLEMS/NEEDS: Financial Transportation Intervention/Referral to be provided:Information for community resources/agencies IMPRESSION/PLAN:SW met with Patient and her dtr-in-law in the infusion room. Patient shares that she was denied Medicaid services because she and her have too much household income. Patient is understandably upset. Patient mentioned that [employer] ([facility]) is helping her with a new furnace. Patient is not sure when it will be installed, but she hopes soon because her home is cold. Patient said that her roof is leaking and needs repaired. [employer] may be able to assist with that. Patient said that she spoke with [employer] about her washer and dryer that are in need of replacement/ SW will reach out to [employer] ([employer])to follow up. Patient also said that her car is not reliable. She has contacted [facility] about a program that may help her with a vehicle? SW later learned after the Patient had left that she needs transportation assistance for any/all appointments at [facility] (Urology). SW will call Patient to discuss resources and options for transportation. Patient may need to have [employer] help her with transportation costs instead of a washer and dryer. SW will review options and get the Patient's input. Assigned SW listed in Care Team tab: Yes SANJANA Ornelas documented in this encounter [facility] 06-20-2024 Telephone encounter Note Patient is now ready to be referred back to Dr. Ware for surgery. Thank you! Rd Leblanc [facility] 06-20-2024 History of Present illness Narrative Images from the original note were not included. NAME: Svetlana Adrian [facility] NO.: [id number] DATE OF SERVICE: June 20, 2024 (Caleb) Some elements in this clinic note that are critical to medical decision making have been carefully reviewed and included from a prior clinic note dated: May 30, 2024 (Abpriscilla) Referring Provider: Lin Dalton MD Additional Clinicians involved in Svetlana Adrian's care: Alejandro Ware DIAGNOSIS: Muscle invasive bladder Ca. ASSESSMENT: 69 year old woman with chronic tobacco use and muscle invasive bladder cancer s/p TURBT with Dr. Dalton mid-January 2024, with no evidence of metastatic disease on staging CT's done in mid-March 2024. Historically, she has preserved kidney function and should be able to tolerate Cisplatin without too much difficulty in the neoadjuvant setting. PLAN: Treatment today for C4D1 Treatment next week for C4D8. Will arrange for CT urogram, CT chest and abdomen in 4 weeks. Will arrange for a follow-up with Dr. Alejandro Ware to discuss surgery after CT scans complete. Plan will be to see the patient back after her surgery. Will continue to keep psych social worker involved for patient needs. Patient will contact her PCP regarding medication adjustments for anxiety, depression and sleep. HPI: CASE HISTORY: Reverse Chronological Order 04/18/2024-Current - GemCis D1, 8 q 21 days 03/28/2024 - CT Chest: Moderate emphysematous changes/COPD. No acute infiltrates or suspicious nodules to suggest metastatic disease. Mild left hydronephrosis incompletely included on today's study 01/30/2024 - CT A/P: No bowel obstruction, ileus, or appreciable inflammatory changes, distal colonic diverticulosis, but no appreciable diverticulitis. Slight wall thickening of urinary bladder. Cystitis? Marked atherosclerotic disease of aorta an branches, but no aneurysm or occlusion 01/23/2024 - XR Urethrogram: Left retrograde pyelogram with no filling defect or mass observed 01/23/2024 - Bladder mass, transurethral resection: Dr. 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 Recommend cystoscopy. No obstructive uropathy. 01/13/2024 - CT A/P: for hematuria Left bladder wall masslike thickening concerning for malignancy. Recommend urology consultation. Colonic diverticulosis Updated Visit, June 20, 2024: Svetlana Adrian returns for follow-up and continued treatment. Overall, she is tolerating treatment well. After treatment she experiences fatigue and sleeps a lot. She is not eating well but is trying. She supplements her diet with Ensure twice a day. She denies any abnormal bleeding. She continues to bruise easily. Her urine is occasionally pink-tinged. She denies fevers, chills and signs/symptoms of infection. She states that she always feels cold. She has been feeling more depressed lately. She was started on gabapentin for sleep and neuropathy. The gabapentin has helped with calming her nerves and sleep. Her main concerns involve finances. She states that she is living in a trailer that is falling apart. She states that her car will not make it through the winter. Her has COPD and was taken to the hospital yesterday and discharged home. She has difficulty with transportation. She does get assistance with transportation but only certain distances. She has problems paying her medical bills and is concerned with the upcoming need for surgery. Updated Visit, May 30, 2024: Returns with Bill. Difficulty breathing with change in weather and more congestion. Otherwise doing well but is unfortunately still smoking due to stress of everything. Updated Visit, May 09, 2024: Patient is here today for consideration of C2D1 of Gemzar/Cisplatin. Her performance status is 0, and she is tolerating chemotherapy well. Patient denies: weakness, fever, chills, sweats, weight loss, mouth sores, vomiting, diarrhea, constipation, athralgias, myalgias, MARCUS, Edema. Having increased fatigue since starting chemotherapy. Met with belt brander, trying to eat better. Weight is down a few pounds since last visit. Having some peripheral neuropathy in bilateral fingers and toes. Comes and goes, not getting any worse. Patient is taking Gabapentin. Encouraged to take vitamin B-complex and Alpha Lipoic Acid. She is taking stool softeners for constipation- Constipation has improved. Trying to quit smoking- having a difficult time. Continues to have a chronic cough and SOB with exertion. Has intermittent nausea- Takes Zofran and that is helpful. Encouraged good mouth care with baking soda. Updated Visit, April 25, 2024: Svetlana returns with Royer today for treatment. She began GemCis on 04/18, has developed nausea but overall is tolerating well. She endorses continuing to smoke although intends to quit soon. Her appetite is not that great, however she has gained a pound. Initial Visit, April 04, 2024: Svtelana Adrian presents today for a Hematology and Oncology evaluation. She is joined by her , Royer. She is a 68 year old female who was found to have a bladder mass on imaging in January. TURBT confirmed malignancy with lamina propria and muscularis propria invasion. She has met with Dr. Ware to consider her surgical options. Anticipate moving forward with neoadjuvant chemotherapy with gemcitabine + cisplatin vs. Dickenson / Carbo She denies use of supplemental oxygen although she feels she could use it after walking long distances. FMHx of bladder cancer in her mother and prostate cancer in her brother. REVIEW OF SYSTEMS Per HPI and otherwise negative by full review of organ systems. ECOG PERFORMANCE STATUS: 1- Restricted in physically strenuous activity. Carries out light duty. PHYSICAL EXAMINATION: Vitals: BP 94/53 Pulse 71 Temp (Src) 97.3 (Temporal) Resp 18 Ht 4' 11.331 (1.51m) Wt 93 lb 14.7 oz (42.6kg) SpO2 95% BMI 18.76 kg/(m^2). Body surface area is 1.34 meters squared. Exam limited to gross visualization where appropriate. Gen.: This is an age-appropriate patient in no acute distress. Head: Appears atraumatic with no visible lesions. Eyes: Pupils equally round and reactive to light, extraocular muscles are intact. Neck: Supple. Respiratory: Appears to be respiring comfortably. Lungs with expiratory rales bilaterally. Neurologic: Nonfocal to gross visualization. Alert and oriented 3. Psychiatric: No evidence of inappropriate anxiety or depression. Skin: Visible areas of skin without rash, lesions, wounds or petechiae. ALLERGIES: ALLERGIES No Known Allergies MEDICATIONS: ondansetron (ZOFRAN) 8 mg tablet Take 1 tablet by mouth every 8 hours as needed for nausea/vomiting. ensifentrine (OHTUVAYRE) 3 mg/2.5 mL suspension for nebulization Use 3 mg via nebulizer two times a day. zinc sulfate (ZINC-15 ORAL) Take by mouth. meloxicam (MOBIC) 7.5 mg tablet Take 7.5 mg by mouth once daily. metoprolol succinate ER (TOPROL XL) 100 mg Take [address]op[address] (PROTONIX) 40 mg tablet Take 40 mg by mouth once daily. Pramipexole 0.75 mg tablet Take 0.75 mg by mouth. guaiFENesin (MUCINEX) 600 mg 12 hr tablet Take 1,200 mg by mouth. budesonide (PULMICORT) 0.5 mg/2 mL nebulizer solution 0.5 mg. arformoterol (BROVANA) 15 mcg/2 mL nebulizer solution 15 mcg. fluticasone (FLONASE) 50 mcg/actuation nasal spray 2 Sprays. Ipratropium (ATROVENT HFA) 17 mcg/actuation inhaler Inhale 2 Puffs as instructed. amLODIPine (NORVASC) 5 mg tablet Take 5 mg by mouth. alendronate (FOSAMAX) 70 mg tablet Take 1 tablet by mouth one time a week. atorvastatin (LIPITOR) 40 mg tablet Take 40 mg by mouth. biotin 5 mg capsule Take 5 mg by mouth. escitalopram oxalate (LEXAPRO) 20 mg tablet Take 20 mg by mouth. gabapentin (NEURONTIN) 300 mg capsule Take 300 mg by mouth daily at bedtime. revefenacin (YUPELRI) 175 mcg/3 mL solution for nebulization 175 mcg. losartan (COZAAR) 100 mg tablet Take 100 mg by mouth. LABORATORY VALUES: WBC (k/uL) Date Value 06/20/2024 5.01 RBC (m/uL) Date Value 06/20/2024 3.68 (L) Hemoglobin (g/dL) Date Value 06/20/2024 11.2 (L) Hematocrit (%) Date Value 06/20/2024 33.2 (L) MCV (fL) Date Value 06/20/2024 90.2 MCH (pg) Date Value 06/20/2024 30.4 MCHC (g/dL) Date Value 06/20/2024 33.7 RDW-CV (%) Date Value 06/20/2024 22.7 (H) Platelet Count (k/uL) Date Value 06/20/2024 327 MPV (fL) Date Value 06/20/2024 9.5 Glucose (mg/dL) Date Value 06/20/2024 113 (H) BUN (mg/dL) Date Value 06/20/2024 8 Creatinine (mg/dL) Date Value 06/20/2024 0.71 Sodium (mmol/L) Date Value 06/20/2024 133 (L) Potassium (mmol/L) Date Value 06/20/2024 3.9 Chloride (mmol/L) Date Value 06/20/2024 95 (L) CO2 (mmol/L) Date Value 06/20/2024 26 Protein, Total (g/dL) Date Value 06/20/2024 6.7 Albumin (g/dL) Date Value 06/20/2024 4.4 Calcium, Total (mg/dL) Date Value 06/20/2024 9.7 Alkaline Phosphatase (U/L) Date Value 06/20/2024 68 Bilirubin, Total (mg/dL) Date Value 06/20/2024 0.3 AST (U/L) Date Value 06/20/2024 31 ALT (U/L) Date Value 06/20/2024 33 Hemoglobin (g/dL) Date Value 06/20/2024 11.2 Hematocrit (%) Date Value 06/20/2024 33.2 WBC (k/uL) Date Value 06/20/2024 5.01 Platelet Count (k/uL) Date Value 06/20/2024 327 DIAGNOSIS: (C67.9) Malignant neoplasm of urinary bladder, unspecified site (HCC) (primary encounter diagnosis) (C67.8) Malignant neoplasm of overlapping sites of bladder (HCC) PAST MEDICAL HISTORY Diagnosis Date Bladder cancer (HCC) 2023 Bladder mass COPD (chronic obstructive pulmonary disease) (HCC) Former smoker HTN (hypertension) Hyperlipidemia Osteoporosis Restless leg No past surgical history on file. No family history on file. I spent a total of 30 minutes on the date of the service which included preparing to see the patient, [id number] patient care, completing clinical documentation, obtaining and/or reviewing separately obtained history, performing a medically appropriate examination, counseling and educating the patient/family/caregiver, ordering medications, tests, or procedures, independently interpreting results (not separately reported), and communicating results to the patient/family/caregiver. Masha Knight APRN.[facility] Provided at: [place], [place] CC: Lin Ware documented in this encounter [facility] 06-20-2024 Note HNO ID: [id number] Author: MASHA KNIGHT APRN.BUSINESS ADMINISTRATION PROGRAM CHAIR Service: ? Author Type: Nurse Practitioner Type: Progress Notes Filed: 06/20/2024 16:10 Note Text: NAME: Svetlana Adrian [facility] NO.: [id number] DATE OF SERVICE: June 20, 2024 (Caleb) Some elements in this clinic note that are critical to medical decision making have been carefully reviewed and included from a prior clinic note dated: May 30, 2024 (Sagar) Referring Provider: Lin Dalton MD Additional Clinicians involved in Svetlana Adrian's care: Alejandro Ware DIAGNOSIS: Muscle invasive bladder Ca. ASSESSMENT: 69 year old woman with chronic tobacco use and muscle invasive bladder cancer s/p TURBT with Dr. Dalton mid-January 2024, with no evidence of metastatic disease on staging CT's done in mid-March 2024. Historically, she has preserved kidney function and should be able to tolerate Cisplatin without too much difficulty in the neoadjuvant setting. PLAN: Treatment today for C4D1 Treatment next week for C4D8. Will arrange for CT urogram, CT chest and abdomen in 4 weeks. Will arrange for a follow-up with Dr. Alejandro Ware to discuss surgery after CT scans complete. Plan will be to see the patient back after her surgery. Will continue to keep psych social worker involved for patient needs. Patient will contact her PCP regarding medication adjustments for anxiety, depression and sleep. HPI: CASE HISTORY: Reverse Chronological Order 04/18/2024-Current - GemCis D1, 8 q 21 days 03/28/2024 - CT Chest: Moderate emphysematous changes/COPD. No acute infiltrates or suspicious nodules to suggest metastatic disease. Mild left hydronephrosis incompletely included on today's study 01/30/2024 - CT A/P: No bowel obstruction, ileus, or appreciable inflammatory changes, distal colonic diverticulosis, but no appreciable diverticulitis. Slight wall thickening of urinary bladder. Cystitis? Marked atherosclerotic disease of aorta an branches, but no aneurysm or occlusion 01/23/2024 - XR Urethrogram: Left retrograde pyelogram with no filling defect or mass observed 01/23/2024 - Bladder mass, transurethral resection: Dr. 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 Recommend cystoscopy. No obstructive uropathy. 01/13/2024 - CT A/P: for hematuria Left bladder wall masslike thickening concerning for malignancy. Recommend urology consultation. Colonic diverticulosis Updated Visit, June 20, 2024: Svetlana Adrian returns for follow-up and continued treatment. Overall, she is tolerating treatment well. After treatment she experiences fatigue and sleeps a lot. She is not eating well but is trying. She supplements her diet with Ensure twice a day. She denies any abnormal bleeding. She continues to bruise easily. Her urine is occasionally pink-tinged. She denies fevers, chills and signs/symptoms of infection. She states that she always feels cold. She has been feeling more depressed lately. She was started on gabapentin for sleep and neuropathy. The gabapentin has helped with calming her nerves and sleep. Her main concerns involve finances. She states that she is living in a trailer that is falling apart. She states that her car will not make it through the winter. Her has COPD and was taken to the hospital yesterday and discharged home. She has difficulty with transportation. She does get assistance with transportation but only certain distances. She has problems paying her medical bills and is concerned with the upcoming need for surgery. Updated Visit, May 30, 2024: Returns with Bill. Difficulty breathing with change in weather and more congestion. Otherwise doing well but is unfortunately still smoking due to stress of everything. Updated Visit, May 09, 2024: Patient is here today for consideration of C2D1 of Gemzar/Cisplatin. Her performance status is 0, and she is tolerating chemotherapy well. Patient denies: weakness, fever, chills, sweats, weight loss, mouth sores, vomiting, diarrhea, constipation, athralgias, myalgias, MARCUS, Edema. Having increased fatigue since starting chemotherapy. Met with belt brander, trying to eat better. Weight is down a few pounds since last visit. Having some peripheral neuropathy in bilateral fingers and toes. Comes and goes, not getting any worse. Patient is taking Gabapentin. Encouraged to take vitamin B-complex and Alpha Lipoic Acid. She is taking stool softeners for constipation- Constipation has improved. Trying to quit smoking- having a difficult time. Continues to have a chronic cough and SOB with exertion. Has intermittent nausea- Takes Zofran and that is helpful. Encouraged good mouth care with baking soda. U (more content not included)... [facility] 06-06-2024 Note Education (NUTRSA) SVETLANA ADRIAN ([id number]) 1955 F Date Time Provider Department 06/06/24 2:15 PM KATIA GOSS Reason for Visit: Nutrition Telephone [2013] Primary Visit Diagnosis:Malignant neoplasm of overlapping sites of bladder (HCC) [C67.8] Other Visit Diagnosis:Severe protein-calorie malnutrition (HCC) [E43] During your visit today, we recorded the following information about you: Allergies As of Date: 06/06/2024 (No Known Allergies) Date Reviewed: 06/06/2024 Reviewed by: Katia Goss RD - Fully Assessed Prescriptions as of 06/06/2024 - ondansetron (ZOFRAN) 8 mg tablet Take 1 tablet by mouth every 8 hours as needed for nausea/vomiting. - ensifentrine (OHTUVAYRE) 3 mg/2.5 mL suspension for nebulization Use 3 mg via nebulizer two times a day. - zinc sulfate (ZINC-15 ORAL) Take by mouth. - meloxicam (MOBIC) 7.5 mg tablet Take 7.5 mg by mouth once daily. - metoprolol succinate ER (TOPROL XL) 100 mg Take 100 mg by mouth. - pantoprazole DR (PROTONIX) 40 mg tablet Take 40 mg by mouth once daily. - Pramipexole 0.75 mg tablet Take 0.75 mg by mouth. - guaiFENesin (MUCINEX) 600 mg 12 hr tablet Take 1,200 mg by mouth. - budesonide (PULMICORT) 0.5 mg/2 mL nebulizer solution 0.5 mg. - arformoterol (BROVANA) 15 mcg/2 mL nebulizer solution 15 mcg. - fluticasone (FLONASE) 50 mcg/actuation nasal spray 2 Sprays. - Ipratropium (ATROVENT HFA) 17 mcg/actuation inhaler Inhale 2 Puffs as instructed. - amLODIPine (NORVASC) 5 mg tablet Take 5 mg by mouth. - alendronate (FOSAMAX) 70 mg tablet Take 1 tablet by mouth one time a week. - atorvastatin (LIPITOR) 40 mg tablet Take 40 mg by mouth. - biotin 5 mg capsule Take 5 mg by mouth. - escitalopram oxalate (LEXAPRO) 20 mg tablet Take 20 mg by mouth. - gabapentin (NEURONTIN) 300 mg capsule Take 300 mg by mouth daily at bedtime. - revefenacin (YUPELRI) 175 mcg/3 mL solution for nebulization 175 mcg. - losartan (COZAAR) 100 mg tablet Take 100 mg by mouth. Facility-Administered Medications as of 06/06/2024 - NaCl 0.9% iv infusion - diphenhydrAMINE 50 mg injection (BENADRYL) - hydrocortisone sodium succinate (PF) 100 mg injection (Solu-CORTEF) - EPINEPHrine 1 mg/mL (1 mL) 0.3 mg injection - sodium chloride 0.9 % (flush) 10-20 mL (BD POSIFLUSH) - sodium chloride 0.9 % (flush) 10-20 mL (BD POSIFLUSH) Encounter Status:Closed by KATIA GOSS on 06/06/24 [facility] 06-06-2024 Note HNO ID: [id number] Author: KATIA GOSS RD Service: ? Author Type: Registered Dietitian Type: Progress Notes Filed: 06/06/2024 14:29 Note Text: Oncology Nutrition Therapy Progress Note I have communicated my name and active licensure. The patient's identity and physical location were verified at the time of this visit. Either the patient or their legal sales promotion representative has been informed of the risks and benefits of -- and alternatives to -- treatment through a remote evaluation and consents to proceed with the evaluation remotely. RECOMMENDED MALNUTRITION DIAGNOSIS: SEVERE PROTEIN-CALORIE MALNUTRITION per RD on 05/23/2024 Some elements copied from my note on 05/23/2024, have been updated and all reflect current decision making from today, 06/06/2024 Nutrition Intervention: -aim for small frequent meals/snacks - eat around the clock every 3 hours versus waiting on hunger cues -aim for soft/moist easy to chew foods -encouraged adequate hydration -aim for 60-64 ounces non-caffeine containing fluids -discussed oral nutrition supplements -Ensure Plus High Protein or equivalent; goal 2x per day -May mix with ice cream or frozen fruit to enhance flavor -incorporate calorie/protein boosting techniques at meals/snacks -whole milk, full fat dairy, cream, butter/margarine, full fat hansen/dressing/condiments, oils, avocado, peanut butter, etc. Nutrition Monitoring AND Evaluation: -PO Intake -Wt status -BM's -Supplement tolerance/acceptance -Biochemical Markers -Plan of care Date of last encounter: May 23, 2024 Patient met goal(s): No Patient's symptoms are: Oral: chewing problems- pt edentulous Behavioral: altered appetite Weight Concerns: weight loss Patient presents for nutrition counseling for: malignant neoplasm of overlapping sites of bladder Current Treatment: neoadjuvant gemcitabine + cisplatin Previous Treatment(s): s/p TURBT Pt continues to struggle with maintaining weight. Appetite and intakes remain varied. Pt reports she is being more consistent with taking ONS daily as previously discussed, but admits she is not being consistent on eating more routinely. Therefore, her intakes remain inadequate. Discussed concerns of her nutrition not meeting her estimated needs leading to further weight loss. Highly encouraged pt to increase intakes of foods/fluids she likes such as chicken salad sandwiches, 2% milk, etc. Recommended increasing ONS to 2x per day to assist with supplementing intakes. Pt verbalized understanding and states she is willing to do this. READINESS TO LEARN Cognitive ability: Alert and oriented Motivation to learn: Interested Family support: Unable to assess - Family not present Instruction provided to: Patient Patient learns best by: Individual Instruction Factors affecting learning: None Physical limitations affecting learning: None Educational materials provided: none this visit Need for Follow up: will continue to follow Referred by: Sagar WHITFIELD Billing Type: Re-assess/15 min 1 unit Billed Time: 15 minutes Signed by: Katia Goss RDN, RENETTA [facility] 06-06-2024 History of Present illness Narrative Oncology Nutrition Therapy Progress Note I have communicated my name and active licensure. The patient's identity and physical location were verified at the time of this visit. Either the patient or their legal sales promotion representative has been informed of the risks and benefits of -- and alternatives to -- treatment through a remote evaluation and consents to proceed with the evaluation remotely. RECOMMENDED MALNUTRITION DIAGNOSIS: SEVERE PROTEIN-CALORIE MALNUTRITION per RD on 05/23/2024 Some elements copied from my note on 05/23/2024, have been updated and all reflect current decision making from today, 06/06/2024 Nutrition Intervention: -aim for small frequent meals/snacks - eat around the clock every 3 hours versus waiting on hunger cues -aim for soft/moist easy to chew foods -encouraged adequate hydration -aim for 60-64 ounces non-caffeine containing fluids -discussed oral nutrition supplements -Ensure Plus High Protein or equivalent; goal 2x per day -May mix with ice cream or frozen fruit to enhance flavor -incorporate calorie/protein boosting techniques at meals/snacks -whole milk, full fat dairy, cream, butter/margarine, full fat hansen/dressing/condiments, oils, avocado, peanut butter, etc. Nutrition Monitoring & Evaluation: -PO Intake -Wt status -BM's -Supplement tolerance/acceptance -Biochemical Markers -Plan of care Date of last encounter: May 23, 2024 Patient met goal(s): No Patient's symptoms are: Oral: chewing problems- pt edentulous Behavioral: altered appetite Weight Concerns: weight loss Patient presents for nutrition counseling for: malignant neoplasm of overlapping sites of bladder Current Treatment: neoadjuvant gemcitabine + cisplatin Previous Treatment(s): s/p TURBT Pt continues to struggle with maintaining weight. Appetite and intakes remain varied. Pt reports she is being more consistent with taking ONS daily as previously discussed, but admits she is not being consistent on eating more routinely. Therefore, her intakes remain inadequate. Discussed concerns of her nutrition not meeting her estimated needs leading to further weight loss. Highly encouraged pt to increase intakes of foods/fluids she likes such as chicken salad sandwiches, 2% milk, etc. Recommended increasing ONS to 2x per day to assist with supplementing intakes. Pt verbalized understanding and states she is willing to do this. READINESS TO LEARN Cognitive ability: Alert and oriented Motivation to learn: Interested Family support: Unable to assess - Family not present Instruction provided to: Patient Patient learns best by: Individual Instruction Factors affecting learning: None Physical limitations affecting learning: None Educational materials provided: none this visit Need for Follow up: will continue to follow Referred by: Sagar WHITFIELD Billing Type: Re-assess/15 min 1 unit Billed Time: 15 minutes Signed by: Katia Goss RDN, LD documented in this encounter [facility] 05-30-2024 Note HNO ID: [id number] Author: KRYSTAL PAIGE LSW Service: ? Author Type: Painter Maintenance Type: Progress Notes Filed: 05/30/2024 16:23 Note Text: SOCIAL WORK FOLLOW UP NOTE: [facility] Date of service:05/30/24 Svetlana Adrian is being seen for a follow up social work visit. Today's visit includes: spouse and patient TOPICS ADDRESSED: finances and community resources PLAN: Assist with financial support applications and Continue follow up as needed F/U APPOINTMENT: PRN Assigned SW listed in Care Team tab: Yes Patient's brought in a letter from [facility] requesting additional information in order to complete the Patient's Medicaid application. Copies made of the original documents and given to Patient's . No other needs or concerns were identified. SW will remain available and will follow up as appropriate. SANJANA Ornelas [facility] 05-30-2024 Note HNO ID: [id number] Author: KRYSTAL PAIGE LSW Service: ? Author Type: Painter Maintenance Type: Progress Notes Filed: 05/30/2024 16:50 Note Text: Opened in error. SANJANA Ornelas [facility] 05-30-2024 History of Present illness Narrative SOCIAL WORK FOLLOW UP NOTE: [facility] Date of service:05/30/24 Svetlana Adrian is being seen for a follow up social work visit. Today's visit includes: spouse and patient TOPICS ADDRESSED: finances and community resources PLAN: Assist with financial support applications and Continue follow up as needed F/U APPOINTMENT: PRN Assigned SW listed in Care Team tab: Yes Patient's brought in a letter from [facility] requesting additional information in order to complete the Patient's Medicaid application. Copies made of the original documents and given to Patient's . No other needs or concerns were identified. SW will remain available and will follow up as appropriate. SANJANA Ornelas documented in this encounter [facility] 05-30-2024 History of Present illness Narrative Opened in error. SANJANA Ornelas documented in this encounter [facility] 05-30-2024 Instructions Lee Dunn MD - 05/30/2024 10:26 AM EDT Treatment today for C3D1 Treatment next week for C3D8. RTC in 3 weeks for labs, clinician and treatment C4D1 documented in this encounter [facility] 05-30-2024 History of Present illness Narrative Images from the original note were not included. NAME: Svetlana Adrian CLINIC NO.: [id number] DATE OF SERVICE: May 30, 2024 (Sagar) Some elements in this clinic note that are critical to medical decision making have been carefully reviewed and included from a prior clinic note dated: May 08, 2024 (Sandi) Referring Provider: Lin Dalton MD Additional Clinicians involved in Svetlana Adrian's care: Alejandro Ware DIAGNOSIS: Muscle invasive bladder Ca. ASSESSMENT: 68 year old woman with chronic tobacco use and muscle invasive bladder cancer s/p TURBT with Dr. Sha hoffmann-January 2024, with no evidence of metastatic disease on staging CT's done in mid-March 2024. Historically, she has preserved kidney function and should be able to tolerate Cisplatin without too much difficulty in the neoadjuvant setting. PLAN: Treatment today for C3D1 Treatment next week for C3D8. RTC in 3 weeks for labs, clinician and treatment C4D1 HPI: CASE HISTORY: Reverse Chronological Order 04/18/2024-Current - GemCis D1, 8 q 21 days 03/28/2024 - CT Chest: Moderate emphysematous changes/COPD. No acute infiltrates or suspicious nodules to suggest metastatic disease. Mild left hydronephrosis incompletely included on today's study 01/30/2024 - CT A/P: No bowel obstruction, ileus, or appreciable inflammatory changes, distal colonic diverticulosis, but no appreciable diverticulitis. Slight wall thickening of urinary bladder. Cystitis? Marked atherosclerotic disease of aorta an branches, but no aneurysm or occlusion 01/23/2024 - XR Urethrogram: Left retrograde pyelogram with no filling defect or mass observed 01/23/2024 - Bladder mass, transurethral resection: Dr. 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 Recommend cystoscopy. No obstructive uropathy. 01/13/2024 - CT A/P: for hematuria Left bladder wall masslike thickening concerning for malignancy. Recommend urology consultation. Colonic diverticulosis Updated Visit, May 30, 2024: Returns with Bill. Difficulty breathing with change in weather and more congestion. Otherwise doing well but is unfortunately still smoking due to stress of everything. Updated Visit, May 09, 2024: Patient is here today for consideration of C2D1 of Gemzar/Cisplatin. Her performance status is 0, and she is tolerating chemotherapy well. Patient denies: weakness, fever, chills, sweats, weight loss, mouth sores, vomiting, diarrhea, constipation, athralgias, myalgias, MARCUS, Edema. Having increased fatigue since starting chemotherapy. Met with belt brander, trying to eat better. Weight is down a few pounds since last visit. Having some peripheral neuropathy in bilateral fingers and toes. Comes and goes, not getting any worse. Patient is taking Gabapentin. Encouraged to take vitamin B-complex and Alpha Lipoic Acid. She is taking stool softeners for constipation- Constipation has improved. Trying to quit smoking- having a difficult time. Continues to have a chronic cough and SOB with exertion. Has intermittent nausea- Takes Zofran and that is helpful. Encouraged good mouth care with baking soda. Updated Visit, April 25, 2024: Svetlana returns with Royer today for treatment. She began GemCis on 04/18, has developed nausea but overall is tolerating well. She endorses continuing to smoke although intends to quit soon. Her appetite is not that great, however she has gained a pound. Initial Visit, April 04, 2024: Svetlana Adrian presents today for a Hematology and Oncology evaluation. She is joined by her , Royer. She is a 68 year old female who was found to have a bladder mass on imaging in January. TURBT confirmed malignancy with lamina propria and muscularis propria invasion. She has met with Dr. Ware to consider her surgical options. Anticipate moving forward with neoadjuvant chemotherapy with gemcitabine + cisplatin vs. Dickenson / Carbo She denies use of supplemental oxygen although she feels she could use it after walking long distances. FMHx of bladder cancer in her mother and prostate cancer in her brother. REVIEW OF SYSTEMS Per HPI and otherwise negative by full review of organ systems. ECOG PERFORMANCE STATUS: 1- Restricted in physically strenuous activity. Carries out light duty. PHYSICAL EXAMINATION: Vitals: BP 116/63 Pulse 59 Temp (Src) 97.3 (Temporal) Resp 18 Ht 4' 11.331 (1.51m) Wt 97 lb 14.2 oz (44.4kg) SpO2 100% BMI 19.55 kg/(m^2). Body surface area is 1.36 meters squared. Exam limited to gross visualization where appropriate. Gen.: This is an age-appropriate patient in no acute distress. Head: Appears atraumatic with no visible lesions. Eyes: Pupils equally round and reactive to light, extraocular muscles are intact. Neck: Supple. Respiratory: Appears to be respiring comfortably. Lungs with expiratory rales bilaterally. Neurologic: Nonfocal to gross visualization. Alert and oriented 3. Psychiatric: No evidence of inappropriate anxiety or depression. Skin: Visible areas of skin without rash, lesions, wounds or petechiae. ALLERGIES: ALLERGIES No Known Allergies MEDICATIONS: ensifentrine (OHTUVAYRE) 3 mg/2.5 mL suspension for nebulization^Use 3 mg via nebulizer two times a day.^Disp: ^Rfl: zinc sulfate (ZINC-15 ORAL)^Take by mouth.^Disp: ^Rfl: meloxicam (MOBIC) 7.5 mg tablet^Take 7.5 mg by mouth once daily.^Disp: ^Rfl: metoprolol succinate ER (TOPROL XL) 100 mg^Take 100 mg by mouth.^Disp: ^Rfl: pantoprazole DR (PROTONIX) 40 mg tablet^Take 40 mg by mouth once daily.^Disp: ^Rfl: Pramipexole 0.75 mg tablet^Take 0.75 mg by mouth.^Disp: ^Rfl: guaiFENesin (MUCINEX) 600 mg 12 hr tablet^Take 1,200 mg by mouth.^Disp: ^Rfl: budesonide (PULMICORT) 0.5 mg/2 mL nebulizer solution^0.5 mg.^Disp: ^Rfl: arformoterol (BROVANA) 15 mcg/2 mL nebulizer solution^15 mcg.^Disp: ^Rfl: fluticasone (FLONASE) 50 mcg/actuation nasal spray^2 Sprays.^Disp: ^Rfl: Ipratropium (ATROVENT HFA) 17 mcg/actuation inhaler^Inhale 2 Puffs as instructed.^Disp: ^Rfl: amLODIPine (NORVASC) 5 mg tablet^Take 5 mg by mouth.^Disp: ^Rfl: alendronate (FOSAMAX) 70 mg tablet^Take 1 tablet by mouth one time a week.^Disp: ^Rfl: atorvastatin (LIPITOR) 40 mg tablet^Take 40 mg by mouth.^Disp: ^Rfl: biotin 5 mg capsule^Take 5 mg by mouth.^Disp: ^Rfl: escitalopram oxalate (LEXAPRO) 20 mg tablet^Take 20 mg by mouth.^Disp: ^Rfl: gabapentin (NEURONTIN) 300 mg capsule^Take 300 mg by mouth daily at bedtime.^Disp: ^Rfl: revefenacin (YUPELRI) 175 mcg/3 mL solution for nebulization^175 mcg.^Disp: ^Rfl: losartan (COZAAR) 100 mg tablet^Take 100 mg by mouth.^Disp: ^Rfl: ondansetron (ZOFRAN) 8 mg tablet^Take 1 tablet by mouth every 8 hours as needed for nausea/vomiting.^Disp: 90 tablet^Rfl: 1 LABORATORY VALUES: WBC (k/uL) Date Value 05/30/2024 3.85 RBC (m/uL) Date Value 05/30/2024 3.99 Hemoglobin (g/dL) Date Value 05/30/2024 11.5 Hematocrit (%) Date Value 05/30/2024 34.9 (L) MCV (fL) Date Value 05/30/2024 87.5 MCH (pg) Date Value 05/30/2024 28.8 MCHC (g/dL) Date Value 05/30/2024 33.0 RDW-CV (%) Date Value 05/30/2024 19.3 (H) Platelet Count (k/uL) Date Value 05/30/2024 282 MPV (fL) Date Value 05/30/2024 9.4 Glucose (mg/dL) Date Value 05/30/2024 129 (H) BUN (mg/dL) Date Value 05/30/2024 9 Creatinine (mg/dL) Date Value 05/30/2024 0.85 Sodium (mmol/L) Date Value 05/30/2024 133 (L) Potassium (mmol/L) Date Value 05/30/2024 4.2 Chloride (mmol/L) Date Value 05/30/2024 95 (L) CO2 (mmol/L) Date Value 05/30/2024 29 Protein, Total (g/dL) Date Value 05/30/2024 5.9 (L) Albumin (g/dL) Date Value 05/30/2024 3.9 Calcium, Total (mg/dL) Date Value 05/30/2024 9.8 Alkaline Phosphatase (U/L) Date Value 05/30/2024 66 Bilirubin, Total (mg/dL) Date Value 05/30/2024 0.3 AST (U/L) Date Value 05/30/2024 55 (H) ALT (U/L) Date Value 05/30/2024 62 (H) Hemoglobin (g/dL) Date Value 05/30/2024 11.5 Hematocrit (%) Date Value 05/30/2024 34.9 WBC (k/uL) Date Value 05/30/2024 3.85 Platelet Count (k/uL) Date Value 05/30/2024 282 DIAGNOSIS: (C67.8) Malignant neoplasm of overlapping sites of bladder (HCC) (primary encounter diagnosis) (R53.83, T45.1X5A) Chemotherapy-induced fatigue PAST MEDICAL HISTORY Diagnosis Date Bladder cancer (HCC) 2023 Bladder mass COPD (chronic obstructive pulmonary disease) (HCC) Former smoker HTN (hypertension) Hyperlipidemia Osteoporosis Restless leg No past surgical history on file. No family history on file. I spent a total of 30 minutes on the date of service which included preparing to see the patient, [id number] patient care, completing clinical documentation, obtaining and/or reviewing separately obtained history, performing a medically appropriate examination, counseling and educating the patient/family/caregiver, ordering medications, tests, or procedures, independently interpreting results (not separately reported), communicating results to the patient/family/caregiver, and care coordination (not separately reported). Lee Dunn MD, CPE Hematology and Oncology Services Provided at: [place], [place] CC: Lin Ware documented in this encounter [facility] 05-30-2024 Note HNO ID: [id number] Author: LEE DUNN MD Service: ? Author Type: Physician Type: Progress Notes Filed: 05/30/2024 16:57 Note Text: NAME: Svetlana Adrian CLINIC NO.: [id number] DATE OF SERVICE: May 30, 2024 (Sagar) Some elements in this clinic note that are critical to medical decision making have been carefully reviewed and included from a prior clinic note dated: May 08, 2024 (Sandi) Referring Provider: Lin Dalton MD Additional Clinicians involved in Svetlana Adrian's care: Alejandro Ware DIAGNOSIS: Muscle invasive bladder Ca. ASSESSMENT: 68 year old woman with chronic tobacco use and muscle invasive bladder cancer s/p TURBT with Dr. Dalton mid-January 2024, with no evidence of metastatic disease on staging CT's done in mid-March 2024. Historically, she has preserved kidney function and should be able to tolerate Cisplatin without too much difficulty in the neoadjuvant setting. PLAN: Treatment today for C3D1 Treatment next week for C3D8. RTC in 3 weeks for labs, clinician and treatment C4D1 HPI: CASE HISTORY: Reverse Chronological Order 04/18/2024-Current - GemCis D1, 8 q 21 days 03/28/2024 - CT Chest: Moderate emphysematous changes/COPD. No acute infiltrates or suspicious nodules to suggest metastatic disease. Mild left hydronephrosis incompletely included on today's study 01/30/2024 - CT A/P: No bowel obstruction, ileus, or appreciable inflammatory changes, distal colonic diverticulosis, but no appreciable diverticulitis. Slight wall thickening of urinary bladder. Cystitis? Marked atherosclerotic disease of aorta an branches, but no aneurysm or occlusion 01/23/2024 - XR Urethrogram: Left retrograde pyelogram with no filling defect or mass observed 01/23/2024 - Bladder mass, transurethral resection: Dr. 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 Recommend cystoscopy. No obstructive uropathy. 01/13/2024 - CT A/P: for hematuria Left bladder wall masslike thickening concerning for malignancy. Recommend urology consultation. Colonic diverticulosis Updated Visit, May 30, 2024: Returns with Bill. Difficulty breathing with change in weather and more congestion. Otherwise doing well but is unfortunately still smoking due to stress of everything. Updated Visit, May 09, 2024: Patient is here today for consideration of C2D1 of Gemzar/Cisplatin. Her performance status is 0, and she is tolerating chemotherapy well. Patient denies: weakness, fever, chills, sweats, weight loss, mouth sores, vomiting, diarrhea, constipation, athralgias, myalgias, MARCUS, Edema. Having increased fatigue since starting chemotherapy. Met with belt brander, trying to eat better. Weight is down a few pounds since last visit. Having some peripheral neuropathy in bilateral fingers and toes. Comes and goes, not getting any worse. Patient is taking Gabapentin. Encouraged to take vitamin B-complex and Alpha Lipoic Acid. She is taking stool softeners for constipation- Constipation has improved. Trying to quit smoking- having a difficult time. Continues to have a chronic cough and SOB with exertion. Has intermittent nausea- Takes Zofran and that is helpful. Encouraged good mouth care with baking soda. Updated Visit, April 25, 2024: Svetlana returns with Royer today for treatment. She began GemCis on 04/18, has developed nausea but overall is tolerating well. She endorses continuing to smoke although intends to quit soon. Her appetite is not that great, however she has gained a pound. Initial Visit, April 04, 2024: Svetlana Adrian presents today for a Hematology and Oncology evaluation. She is joined by her , Royer. She is a 68 year old female who was found to have a bladder mass on imaging in January. TURBT confirmed malignancy with lamina propria and muscularis propria invasion. She has met with Dr. Ware to consider her surgical options. Anticipate moving forward with neoadjuvant chemotherapy with gemcitabine + cisplatin vs. Dickenson / Carbo She denies use of supplemental oxygen although she feels she could use it after walking long distances. FMHx of bladder cancer in her mother and prostate cancer in her brother. REVIEW OF SYSTEMS Per HPI and otherwise negative by full review of organ systems. ECOG PERFORMANCE STATUS: 1- Restricted in physically strenuous activity. Carries out light duty. PHYSICAL EXAMINATION: Vitals: BP 116/63 Pulse 59 Temp (Src) 97.3 (Temporal) Resp 18 Ht 4' 11.331 (1.51m) Wt 97 lb 14.2 oz (44. (more content not included)... [facility] 05-23-[address] - 05/23/2024 3:24 PM EDT -aim for small frequent meals/snacks - eat around the clock every 3 hours versus waiting on hunger cues -aim for soft/moist easy to chew foods -encouraged adequate hydration -aim for 60-64 ounces non-caffeine containing fluids -discussed oral nutrition supplements -Ensure Plus High Protein or equivalent; goal 1 per day -May mix with ice cream or frozen fruit to enhance flavor -incorporate calorie/protein boosting techniques at meals/snacks -whole milk, full fat dairy, cream, butter/margarine, full fat hansen/dressing/condiments, oils, avocado, peanut butter, etc. documented in this encounter [facility] 05-23-2024 Note Education (NUTRSA) SVETLANA ADRIAN ([id number]) 1955 F Date Time Provider Department 05/23/24 3:00 PM KATIA GOSS Reason for Visit: Nutrition Telephone [2014] Primary Visit Diagnosis:Malignant neoplasm of overlapping sites of bladder (HCC) [C67.8] Other Visit Diagnosis:Severe protein-calorie malnutrition (HCC) [E43] During your visit today, we recorded the following information about you: Allergies As of Date: 05/23/2024 (No Known Allergies) Date Reviewed: 05/23/2024 Reviewed by: Katia Goss RD - Fully Assessed Prescriptions as of 05/23/2024 - ensifentrine (OHTUVAYRE) 3 mg/2.5 mL suspension for nebulization Use 3 mg via nebulizer two times a day. - ondansetron (ZOFRAN) 8 mg tablet Take 1 tablet by mouth every 8 hours as needed for nausea/vomiting. - zinc sulfate (ZINC-15 ORAL) Take by mouth. - meloxicam (MOBIC) 7.5 mg tablet Take 7.5 mg by mouth once daily. - metoprolol succinate ER (TOPROL XL) 100 mg Take 100 mg by mouth. - pantoprazole DR (PROTONIX) 40 mg tablet Take 40 mg by mouth once daily. - Pramipexole 0.75 mg tablet Take 0.75 mg by mouth. - guaiFENesin (MUCINEX) 600 mg 12 hr tablet Take 1,200 mg by mouth. - budesonide (PULMICORT) 0.5 mg/2 mL nebulizer solution 0.5 mg. - arformoterol (BROVANA) 15 mcg/2 mL nebulizer solution 15 mcg. - fluticasone (FLONASE) 50 mcg/actuation nasal spray 2 Sprays. - Ipratropium (ATROVENT HFA) 17 mcg/actuation inhaler Inhale 2 Puffs as instructed. - amLODIPine (NORVASC) 5 mg tablet Take 5 mg by mouth. - alendronate (FOSAMAX) 70 mg tablet Take 1 tablet by mouth one time a week. - atorvastatin (LIPITOR) 40 mg tablet Take 40 mg by mouth. - biotin 5 mg capsule Take 5 mg by mouth. - escitalopram oxalate (LEXAPRO) 20 mg tablet Take 20 mg by mouth. - gabapentin (NEURONTIN) 300 mg capsule Take 300 mg by mouth daily at bedtime. - revefenacin (YUPELRI) 175 mcg/3 mL solution for nebulization 175 mcg. - losartan (COZAAR) 100 mg tablet Take 100 mg by mouth. Encounter Status:Closed by KATIA GOSS on 05/23/24 [facility] 05-23-2024 Note HNO ID: [id number] Author: KATIA GOSS RD Service: ? Author Type: Registered Dietitian Type: Progress Notes Filed: 05/23/2024 15:26 Note Text: Oncology Nutrition Therapy Reassessment I have communicated my name and active licensure. The patient's identity and physical location were verified at the time of this visit. Either the patient or their legal sales promotion representative has been informed of the risks and benefits of -- and alternatives to -- treatment through a remote evaluation and consents to proceed with the evaluation remotely. RECOMMENDED MALNUTRITION DIAGNOSIS: SEVERE PROTEIN-CALORIE MALNUTRITION In the context of Chronic Illness or Injury based on: Unintentional Weight Loss: >7.5% in 3 months Insufficient Energy Intake: Less than 75% energy intake compared to estimated needs for greater than or equal to 1 month Some elements copied from my note on 05/02/2024, have been updated and all reflect current decision making from today, 05/23/2024 Nutrition Diagnosis: Increased protein and energy needs related to hypermetabolic disease process as evidenced by need for weight maintenance and preservation of muscle mass. Nutrition Intervention: -aim for small frequent meals/snacks - eat around the clock every 3 hours versus waiting on hunger cues -aim for soft/moist easy to chew foods -encouraged adequate hydration -aim for 60-64 ounces non-caffeine containing fluids -discussed oral nutrition supplements -Ensure Plus High Protein or equivalent; goal 1 per day -May mix with ice cream or frozen fruit to enhance flavor -incorporate calorie/protein boosting techniques at meals/snacks -whole milk, full fat dairy, cream, butter/margarine, full fat hansen/dressing/condiments, oils, avocado, peanut butter, etc. Nutrition Monitoring AND Evaluation: -PO Intake -Wt status -BM's -Supplement tolerance/acceptance -Biochemical Markers -Plan of care Date of last encounter: May 02, 2024 Patient met goal(s): Partially Patient's current symptoms are: Oral: chewing problems- pt edentulous Behavioral: altered appetite Weight Concerns: weight loss Patient presents for nutrition counseling for: malignant neoplasm of overlapping sites of bladder Current Treatment: neoadjuvant gemcitabine + cisplatin Previous Treatment(s): s/p TURBT Pt c/o some dry heaves, but not vomiting. She is taking antiemetics with relief. Denies any C/D. Pt reports appetite is starting to get a little better. She is eating cereal in the mornings now. Food is tasting a little better and starting to include more meat throughout the day, but states she may only be able to eat half of meal/sandwich. Pt is drinking ONS, but admits she is not taking it every day. She tries to take every other day. Strongly encouraged patient to consistently take ONS daily to help supplement her intakes and promote weight stability. Discussed mixing ONS with syrups, ice cream, or frozen fruit to enhance flavor of the product. Encouraged pt to continue eating frequently to ensure adequate calorie/protein intakes. Thank you for allowing me to participate in the care of this pt. Readiness to Learn: Cognitive ability: Alert and oriented Motivation to learn: Interested Family support: Unable to assess - Family not present Instruction provided to: Patient Patient learns best by: Individual Instruction Factors affecting learning: None Physical limitations affecting learning: None Educational materials provided: none this visit Anthropometrics: Height: Last 1 Encounter Ht Readings: Date: Ht: 05/09/2024 150.7 cm (4' 11.33 ) Current weight: Last 1 Encounter Wt Readings: Date: Wt: 05/09/2024 46 kg (101 lb 6.6 oz) Estimated body mass index is 20.25 kg/m? as calculated from the following: Height as of 05/09/24: 150.7 cm (4' 11.33 ). Weight as of 05/09/24: 46 kg (101 lb 6.6 oz). Resting Metabolic Rate: 896 Weight Change: -3.2kg (6.5%) x 1 mo, clinically significant -14.4kg (23.8%) x 3 mo, clinically significant UBW: 133# (60.4kg), pt stated , February 2024 Dosing Weight: 46 kg Estimated kilocalorie needs: 3343-8695 kilocalories determined by 30-35 kcal/kg Estimated protein needs: 55-69 grams determined by 1.2-1.5 g/kg Dosing weight Estimated fluid needs: ~4837-8085 milliliters based on 1 mL per kcal (unless otherwise indicated) Nutrition Focused Physical Exam: Unable to perform exam due to patient unable to participate due to encounter type (phone), will re-attempt during reassessment. Potential Signs of Inflammation: chronic condition Allergies: Patient has no known allergies. Medications: Current Outpatient Medications Medication Sig Dispense Refill ensifentrine (OHTUVAYRE) 3 mg/2.5 mL suspension for nebulization Use 3 mg via nebulizer two times a day. ondansetron (ZOFRAN) 8 mg tablet Take 1 tablet by mouth every 8 hours as needed for nausea/vomiting. 90 tablet 1 zinc sulfate (ZINC-15 O (more content not included)... [facility] 05-23-2024 History of Present illness Narrative Oncology Nutrition Therapy Reassessment I have communicated my name and active licensure. The patient's identity and physical location were verified at the time of this visit. Either the patient or their legal sales promotion representative has been informed of the risks and benefits of -- and alternatives to -- treatment through a remote evaluation and consents to proceed with the evaluation remotely. RECOMMENDED MALNUTRITION DIAGNOSIS: SEVERE PROTEIN-CALORIE MALNUTRITION In the context of Chronic Illness or Injury based on: Unintentional Weight Loss: >7.5% in 3 months Insufficient Energy Intake: Less than 75% energy intake compared to estimated needs for greater than or equal to 1 month Some elements copied from my note on 05/02/2024, have been updated and all reflect current decision making from today, 05/23/2024 Nutrition Diagnosis: Increased protein and energy needs related to hypermetabolic disease process as evidenced by need for weight maintenance and preservation of muscle mass. Nutrition Intervention: -aim for small frequent meals/snacks - eat around the clock every 3 hours versus waiting on hunger cues -aim for soft/moist easy to chew foods -encouraged adequate hydration -aim for 60-64 ounces non-caffeine containing fluids -discussed oral nutrition supplements -Ensure Plus High Protein or equivalent; goal 1 per day -May mix with ice cream or frozen fruit to enhance flavor -incorporate calorie/protein boosting techniques at meals/snacks -whole milk, full fat dairy, cream, butter/margarine, full fat hansen/dressing/condiments, oils, avocado, peanut butter, etc. Nutrition Monitoring & Evaluation: -PO Intake -Wt status -BM's -Supplement tolerance/acceptance -Biochemical Markers -Plan of care Date of last encounter: May 02, 2024 Patient met goal(s): Partially Patient's current symptoms are: Oral: chewing problems- pt edentulous Behavioral: altered appetite Weight Concerns: weight loss Patient presents for nutrition counseling for: malignant neoplasm of overlapping sites of bladder Current Treatment: neoadjuvant gemcitabine + cisplatin Previous Treatment(s): s/p TURBT Pt c/o some dry heaves, but not vomiting. She is taking antiemetics with relief. Denies any C/D. Pt reports appetite is starting to get a little better. She is eating cereal in the mornings now. Food is tasting a little better and starting to include more meat throughout the day, but states she may only be able to eat half of meal/sandwich. Pt is drinking ONS, but admits she is not taking it every day. She tries to take every other day. Strongly encouraged patient to consistently take ONS daily to help supplement her intakes and promote weight stability. Discussed mixing ONS with syrups, ice cream, or frozen fruit to enhance flavor of the product. Encouraged pt to continue eating frequently to ensure adequate calorie/protein intakes. Thank you for allowing me to participate in the care of this pt. Readiness to Learn: Cognitive ability: Alert and oriented Motivation to learn: Interested Family support: Unable to assess - Family not present Instruction provided to: Patient Patient learns best by: Individual Instruction Factors affecting learning: None Physical limitations affecting learning: None Educational materials provided: none this visit Anthropometrics: Height: Last 1 Encounter Ht Readings: Date: Ht: 05/09/2024 150.7 cm (4' 11.33 ) Current weight: Last 1 Encounter Wt Readings: Date: Wt: 05/09/2024 46 kg (101 lb 6.6 oz) Estimated body mass index is 20.25 kg/m as calculated from the following: Height as of 05/09/24: 150.7 cm (4' 11.33 ). Weight as of 05/09/24: 46 kg (101 lb 6.6 oz). Resting Metabolic Rate: 896 Weight Change: -3.2kg (6.5%) x 1 mo, clinically significant -14.4kg (23.8%) x 3 mo, clinically significant UBW: 133# (60.4kg), pt stated , February 2024 Dosing Weight: 46 kg Estimated kilocalorie needs: 4558-2602 kilocalories determined by 30-35 kcal/kg Estimated protein needs: 55-69 grams determined by 1.2-1.5 g/kg Dosing weight Estimated fluid needs: ~6239-4640 milliliters based on 1 mL per kcal (unless otherwise indicated) Nutrition Focused Physical Exam: Unable to perform exam due to patient unable to participate due to encounter type (phone), will re-attempt during reassessment. Potential Signs of Inflammation: chronic condition Allergies: Patient has no known allergies. Medications: Current Outpatient Medications Medication Sig Dispense Refill ensifentrine (OHTUVAYRE) 3 mg/2.5 mL suspension for nebulization Use 3 mg via nebulizer two times a day. ondansetron (ZOFRAN) 8 mg tablet Take 1 tablet by mouth every 8 hours as needed for nausea/vomiting. 90 tablet 1 zinc sulfate (ZINC-15 ORAL) Take by mouth. meloxicam (MOBIC) 7.5 mg tablet Take 7.5 mg by mouth once daily. metoprolol succinate ER (TOPROL XL) 100 mg Take [address] (PROTONIX) 40 mg tablet Take 40 mg by mouth once daily. Pramipexole 0.75 mg tablet Take 0.75 mg by mouth. guaiFENesin (MUCINEX) 600 mg 12 hr tablet Take 1,200 mg by mouth. budesonide (PULMICORT) 0.5 mg/2 mL nebulizer solution 0.5 mg. arformoterol (BROVANA) 15 mcg/2 mL nebulizer solution 15 mcg. fluticasone (FLONASE) 50 mcg/actuation nasal spray 2 Sprays. Ipratropium (ATROVENT HFA) 17 mcg/actuation inhaler Inhale 2 Puffs as instructed. amLODIPine (NORVASC) 5 mg tablet Take 5 mg by mouth. alendronate (FOSAMAX) 70 mg tablet Take 1 tablet by mouth one time a week. atorvastatin (LIPITOR) 40 mg tablet Take 40 mg by mouth. biotin 5 mg capsule Take 5 mg by mouth. escitalopram oxalate (LEXAPRO) 20 mg tablet Take 20 mg by mouth. gabapentin (NEURONTIN) 300 mg capsule Take 300 mg by mouth daily at bedtime. revefenacin (YUPELRI) 175 mcg/3 mL solution for nebulization 175 mcg. losartan (COZAAR) 100 mg tablet Take 100 mg by mouth. No current facility-administered medications for this visit. Need for Follow up: will continue to follow Referred by: Sagar WHITFIELD Billing Type: Re-assess/15 min 1 unit Time Spent with Patient: 15 minutes Signed by: Katia Goss RD, LD documented in this encounter [facility] 05-16-2024 Note HNO ID: [id number] Author: KRYSTLA PAIGE LSW Service: ? Author Type: Painter Maintenance Type: Progress Notes Filed: 05/16/2024 15:03 Note Text: SOCIAL WORK FOLLOW UP NOTE: [facility] Date of service:05/16/24 Svetlana Adrian is being seen for a follow up social work visit. Today's visit includes: spouse and patient TOPICS ADDRESSED: community resources PLAN: Continue follow up as needed Assigned SW listed in Care Team tab: Yes Patient report that she has connected with the [facility]. They provided her with gas cards. Patient is still waiting to hear from Medicaid if she was approved or denied. Patient denied any immediate needs or concerns. SW will remain available and will follow up as appropriate. SANJANA Ornelas [facility] 05-16-2024 History of Present illness Narrative SOCIAL WORK FOLLOW UP NOTE: [facility] Date of service:05/16/24 Svetlana Adrian is being seen for a follow up social work visit. Today's visit includes: spouse and patient TOPICS ADDRESSED: community resources PLAN: Continue follow up as needed Assigned SW listed in Care Team tab: Yes Patient report that she has connected with the [facility]. They provided her with gas cards. Patient is still waiting to hear from Medicaid if she was approved or denied. Patient denied any immediate needs or concerns. SW will remain available and will follow up as appropriate. SANJANA Ornelas documented in this encounter [facility] 05-16-2024 Note HNO ID: [id number] Author: MALORIE WRIGHT RN Service: ? Author Type: Registered Nurse Type: Progress Notes Filed: 05/16/2024 14:50 Note Text: Lab Mag 1.3 K+ 3.4 CrCl 56.8 and slight elevation with LFT's. Message sent to Sophia Dupree PA-C/Dr Dunn for notification. Malorie Wright RN [facility] 05-16-2024 History of Present illness Narrative Lab Mag 1.3 K+ 3.4 CrCl 56.8 and slight elevation with LFT's. Message sent to Sophia Dupree PA-C/Dr Dunn for notification. Malorie Wright RN documented in this encounter [facility] 05-09-2024 History of Present illness Narrative NAME: Svetlana Adrian [facility] NO.: [id number] DATE OF SERVICE: May 08, 2024 (Sandi) Some elements in this clinic note that are critical to medical decision making have been carefully reviewed and included from a prior clinic note dated: April 25, 2024 (Sagar) Referring Provider: Lin Dalton MD Additional Clinicians involved in Svetlana Adrian's care: Alejandro Ware DIAGNOSIS: Muscle invasive bladder Ca. ASSESSMENT: 68 year old woman with chronic tobacco use and muscle invasive bladder cancer s/p TURBT with Dr. Dalton mid-January 2024, with no evidence of metastatic disease on staging CT's done in mid-March 2024. Historically, she has preserved kidney function and should be able to tolerate Cisplatin without too much difficulty in the neoadjuvant setting. PLAN: Treatment today for C2D1 RTC for C3D1 in 3 weeks (05/30) Labs same day HPI: CASE HISTORY: Reverse Chronological Order 04/18/2024-Current - GemCis D1, 8 q 21 days 03/28/2024 - CT Chest: Moderate emphysematous changes/COPD. No acute infiltrates or suspicious nodules to suggest metastatic disease. Mild left hydronephrosis incompletely included on today's study 01/30/2024 - CT A/P: No bowel obstruction, ileus, or appreciable inflammatory changes, distal colonic diverticulosis, but no appreciable diverticulitis. Slight wall thickening of urinary bladder. Cystitis? Marked atherosclerotic disease of aorta an branches, but no aneurysm or occlusion 01/23/2024 - XR Urethrogram: Left retrograde pyelogram with no filling defect or mass observed 01/23/2024 - Bladder mass, transurethral resection: Dr. 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 Recommend cystoscopy. No obstructive uropathy. 01/13/2024 - CT A/P: for hematuria Left bladder wall masslike thickening concerning for malignancy. Recommend urology consultation. Colonic diverticulosis Updated Visit, May 09, 2024: Patient is here today for consideration of C2D1 of Gemzar/Cisplatin. Her performance status is 0, and she is tolerating chemotherapy well. Patient denies: weakness, fever, chills, sweats, weight loss, mouth sores, vomiting, diarrhea, constipation, athralgias, myalgias, MARCUS, Edema. Having increased fatigue since starting chemotherapy. Met with belt brander, trying to eat better. Weight is down a few pounds since last visit. Having some peripheral neuropathy in bilateral fingers and toes. Comes and goes, not getting any worse. Patient is taking Gabapentin. Encouraged to take vitamin B-complex and Alpha Lipoic Acid. She is taking stool softeners for constipation- Constipation has improved. Trying to quit smoking- having a difficult time. Continues to have a chronic cough and SOB with exertion. Has intermittent nausea- Takes Zofran and that is helpful. Encouraged good mouth care with baking soda. Updated Visit, April 25, 2024: Svetlana returns with Royer today for treatment. She began GemCis on 04/18, has developed nausea but overall is tolerating well. She endorses continuing to smoke although intends to quit soon. Her appetite is not that great, however she has gained a pound. Initial Visit, April 04, 2024: Svetlana Adrian presents today for a Hematology and Oncology evaluation. She is joined by her , Royer. She is a 68 year old female who was found to have a bladder mass on imaging in January. TURBT confirmed malignancy with lamina propria and muscularis propria invasion. She has met with Dr. Ware to consider her surgical options. Anticipate moving forward with neoadjuvant chemotherapy with gemcitabine + cisplatin vs. Dickenson / Carbo She denies use of supplemental oxygen although she feels she could use it after walking long distances. FMHx of bladder cancer in her mother and prostate cancer in her brother. REVIEW OF SYSTEMS Per HPI and otherwise negative by full review of organ systems. ECOG PERFORMANCE STATUS: 1- Restricted in physically strenuous activity. Carries out light duty. PHYSICAL EXAMINATION: Vitals: BP 100/59 Pulse 99 Temp (Src) 97.6 (Temporal) Resp 16 Ht 4' 11.331 (1.51m) Wt 101 lb 6.6 oz (46.0kg) SpO2 95% BMI 20.25 kg/(m^2). Body surface area is 1.39 meters squared. Exam limited to gross visualization where appropriate. Gen.: This is an age-appropriate patient in no acute distress. Head: Appears atraumatic with no visible lesions. Eyes: Pupils equally round and reactive to light, extraocular muscles are intact. Neck: Supple. Respiratory: Appears to be respiring comfortably. Neurologic: Nonfocal to gross visualization. Alert and oriented 3. Psychiatric: No evidence of inappropriate anxiety or depression. Skin: Visible areas of skin without rash, lesions, wounds or petechiae. ALLERGIES: ALLERGIES No Known Allergies MEDICATIONS: ensifentrine (OHTUVAYRE) 3 mg/2.5 mL suspension for nebulization^Use 3 mg via nebulizer two times a day.^Disp: ^Rfl: zinc sulfate (ZINC-15 ORAL)^Take by mouth.^Disp: ^Rfl: meloxicam (MOBIC) 7.5 mg tablet^Take 7.5 mg by mouth once daily.^Disp: ^Rfl: metoprolol succinate ER (TOPROL XL) 100 mg^Take 100 mg by mouth.^Disp: ^Rfl: pantoprazole DR (PROTONIX) 40 mg tablet^Take 40 mg by mouth once daily.^Disp: ^Rfl: guaiFENesin (MUCINEX) 600 mg 12 hr tablet^Take 1,200 mg by mouth.^Disp: ^Rfl: budesonide (PULMICORT) 0.5 mg/2 mL nebulizer solution^0.5 mg.^Disp: ^Rfl: arformoterol (BROVANA) 15 mcg/2 mL nebulizer solution^15 mcg.^Disp: ^Rfl: fluticasone (FLONASE) 50 mcg/actuation nasal spray^2 Sprays.^Disp: ^Rfl: Ipratropium (ATROVENT HFA) 17 mcg/actuation inhaler^Inhale 2 Puffs as instructed.^Disp: ^Rfl: amLODIPine (NORVASC) 5 mg tablet^Take 5 mg by mouth.^Disp: ^Rfl: alendronate (FOSAMAX) 70 mg tablet^Take 1 tablet by mouth one time a week.^Disp: ^Rfl: atorvastatin (LIPITOR) 40 mg tablet^Take 40 mg by mouth.^Disp: ^Rfl: biotin 5 mg capsule^Take 5 mg by mouth.^Disp: ^Rfl: escitalopram oxalate (LEXAPRO) 20 mg tablet^Take 20 mg by mouth.^Disp: ^Rfl: gabapentin (NEURONTIN) 300 mg capsule^Take 300 mg by mouth daily at bedtime.^Disp: ^Rfl: revefenacin (YUPELRI) 175 mcg/3 mL solution for nebulization^175 mcg.^Disp: ^Rfl: ondansetron (ZOFRAN) 8 mg tablet^Take 1 tablet by mouth every 8 hours as needed for nausea/vomiting.^Disp: 90 tablet^Rfl: 1 Pramipexole 0.75 mg tablet^Take 0.75 mg by mouth.^Disp: ^Rfl: losartan (COZAAR) 100 mg tablet^Take 100 mg by mouth.^Disp: ^Rfl: LABORATORY VALUES: WBC (k/uL) Date Value 05/09/2024 5.01 RBC (m/uL) Date Value 05/09/2024 4.47 Hemoglobin (g/dL) Date Value 05/09/2024 12.8 Hematocrit (%) Date Value 05/09/2024 38.0 MCV (fL) Date Value 05/09/2024 85.0 MCH (pg) Date Value 05/09/2024 28.6 MCHC (g/dL) Date Value 05/09/2024 33.7 RDW-CV (%) Date Value 05/09/2024 16.0 (H) Platelet Count (k/uL) Date Value 05/09/2024 459 (H) MPV (fL) Date Value 05/09/2024 8.7 (L) Glucose (mg/dL) Date Value 05/09/2024 135 (H) BUN (mg/dL) Date Value 05/09/2024 11 Creatinine (mg/dL) Date Value 05/09/2024 0.94 Sodium (mmol/L) Date Value 05/09/2024 134 (L) Potassium (mmol/L) Date Value 05/09/2024 4.6 Chloride (mmol/L) Date Value 05/09/2024 95 (L) CO2 (mmol/L) Date Value 05/09/2024 29 Protein, Total (g/dL) Date Value 05/09/2024 6.5 Albumin (g/dL) Date Value 05/09/2024 4.3 Calcium, Total (mg/dL) Date Value 05/09/2024 10.2 Alkaline Phosphatase (U/L) Date Value 05/09/2024 81 Bilirubin, Total (mg/dL) Date Value 05/09/2024 0.3 AST (U/L) Date Value 05/09/2024 28 ALT (U/L) Date Value 05/09/2024 41 (H) Hemoglobin (g/dL) Date Value 05/09/2024 12.8 Hematocrit (%) Date Value 05/09/2024 38.0 WBC (k/uL) Date Value 05/09/2024 5.01 Platelet Count (k/uL) Date Value 05/09/2024 459 DIAGNOSIS: (C67.8) Malignant neoplasm of overlapping sites of bladder (HCC) (primary encounter diagnosis) Plan: MAGNESIUM (Z51.11) Encounter for antineoplastic chemotherapy PAST MEDICAL HISTORY Diagnosis Date Bladder cancer (HCC) 2023 Bladder mass COPD (chronic obstructive pulmonary disease) (HCC) Former smoker HTN (hypertension) Hyperlipidemia Osteoporosis Restless leg No past surgical history on file. No family history on file. Kamille French APRN.CNP CC: Lin Ware documented in this encounter [facility] 05-09-2024 Note HNO ID: [id number] Author: KAMILLE FRENCH APRN.CNP Service: ? Author Type: Nurse Practitioner Type: Progress Notes Filed: 05/09/2024 11:47 Note Text: NAME: Mercedgordy Svetlana [facility] NO.: [id number] DATE OF SERVICE: May 08, 2024 (Sandi) Some elements in this clinic note that are critical to medical decision making have been carefully reviewed and included from a prior clinic note dated: April 25, 2024 (Sagar) Referring Provider: Lin Dalton MD Additional Clinicians involved in Svetlana Adrian's care: Alejandro Robeverly DIAGNOSIS: Muscle invasive bladder Ca. ASSESSMENT: 68 year old woman with chronic tobacco use and muscle invasive bladder cancer s/p TURBT with Dr. Dalton mid-January 2024, with no evidence of metastatic disease on staging CT's done in mid-March 2024. Historically, she has preserved kidney function and should be able to tolerate Cisplatin without too much difficulty in the neoadjuvant setting. PLAN: Treatment today for C2D1 RTC for C3D1 in 3 weeks (05/30) Labs same day HPI: CASE HISTORY: Reverse Chronological Order 04/18/2024-Current - GemCis D1, 8 q 21 days 03/28/2024 - CT Chest: Moderate emphysematous changes/COPD. No acute infiltrates or suspicious nodules to suggest metastatic disease. Mild left hydronephrosis incompletely included on today's study 01/30/2024 - CT A/P: No bowel obstruction, ileus, or appreciable inflammatory changes, distal colonic diverticulosis, but no appreciable diverticulitis. Slight wall thickening of urinary bladder. Cystitis? Marked atherosclerotic disease of aorta an branches, but no aneurysm or occlusion 01/23/2024 - XR Urethrogram: Left retrograde pyelogram with no filling defect or mass observed 01/23/2024 - Bladder mass, transurethral resection: Dr. 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 Recommend cystoscopy. No obstructive uropathy. 01/13/2024 - CT A/P: for hematuria Left bladder wall masslike thickening concerning for malignancy. Recommend urology consultation. Colonic diverticulosis Updated Visit, May 09, 2024: Patient is here today for consideration of C2D1 of Gemzar/Cisplatin. Her performance status is 0, and she is tolerating chemotherapy well. Patient denies: weakness, fever, chills, sweats, weight loss, mouth sores, vomiting, diarrhea, constipation, athralgias, myalgias, MARCUS, Edema. Having increased fatigue since starting chemotherapy. Met with belt brander, trying to eat better. Weight is down a few pounds since last visit. Having some peripheral neuropathy in bilateral fingers and toes. Comes and goes, not getting any worse. Patient is taking Gabapentin. Encouraged to take vitamin B-complex and Alpha Lipoic Acid. She is taking stool softeners for constipation- Constipation has improved. Trying to quit smoking- having a difficult time. Continues to have a chronic cough and SOB with exertion. Has intermittent nausea- Takes Zofran and that is helpful. Encouraged good mouth care with baking soda. Updated Visit, April 25, 2024: Svetlana returns with Royer today for treatment. She began GemCis on 04/18, has developed nausea but overall is tolerating well. She endorses continuing to smoke although intends to quit soon. Her appetite is not that great, however she has gained a pound. Initial Visit, April 04, 2024: Svetlana Adrian presents today for a Hematology and Oncology evaluation. She is joined by her , Royer. She is a 68 year old female who was found to have a bladder mass on imaging in January. TURBT confirmed malignancy with lamina propria and muscularis propria invasion. She has met with Dr. Ware to consider her surgical options. Anticipate moving forward with neoadjuvant chemotherapy with gemcitabine + cisplatin vs. Dickenson / Carbo She denies use of supplemental oxygen although she feels she could use it after walking long distances. FMHx of bladder cancer in her mother and prostate cancer in her brother. REVIEW OF SYSTEMS Per HPI and otherwise negative by full review of organ systems. ECOG PERFORMANCE STATUS: 1- Restricted in physically strenuous activity. Carries out light duty. PHYSICAL EXAMINATION: Vitals: BP 100/59 Pulse 99 Temp (Src) 97.6 (Temporal) Resp 16 Ht 4' 11.331 (1.51m) Wt 101 lb 6.6 oz (46.0kg) SpO2 95% BMI 20.25 kg/(m2). Body surface area is 1.39 meters squared. Exam limited to gross visualization where appropriate. Gen.: This is an age-appropriate patient in no acute distress. Head: Appears atraumatic with no (more content not included)... [facility] 05-02-2024 Note Education (NUTRSA) SVETLANA ADRIAN ([id number]) 1955 F Date Time Provider Department 05/02/24 3:00 PM KATIA GOSS Reason for Visit: Nutrition Telephone [2014] Primary Visit Diagnosis:Malignant neoplasm of overlapping sites of bladder (HCC) [C67.8] Other Visit Diagnosis:Severe protein-calorie malnutrition (HCC) [E43] During your visit today, we recorded the following information about you: Allergies As of Date: 05/02/2024 (No Known Allergies) Date Reviewed: 05/02/2024 Reviewed by: Katia Goss RD - Fully Assessed Prescriptions as of 05/02/2024 - ensifentrine (OHTUVAYRE) 3 mg/2.5 mL suspension for nebulization Use 3 mg via nebulizer two times a day. - ondansetron (ZOFRAN) 8 mg tablet Take 1 tablet by mouth every 8 hours as needed for nausea/vomiting. - zinc sulfate (ZINC-15 ORAL) Take by mouth. - meloxicam (MOBIC) 7.5 mg tablet Take 7.5 mg by mouth once daily. - metoprolol succinate ER (TOPROL XL) 100 mg Take 100 mg by mouth. - pantoprazole DR (PROTONIX) 40 mg tablet Take 40 mg by mouth once daily. - Pramipexole 0.75 mg tablet Take 0.75 mg by mouth. - guaiFENesin (MUCINEX) 600 mg 12 hr tablet Take 1,200 mg by mouth. - budesonide (PULMICORT) 0.5 mg/2 mL nebulizer solution 0.5 mg. - arformoterol (BROVANA) 15 mcg/2 mL nebulizer solution 15 mcg. - fluticasone (FLONASE) 50 mcg/actuation nasal spray 2 Sprays. - Ipratropium (ATROVENT HFA) 17 mcg/actuation inhaler Inhale 2 Puffs as instructed. - amLODIPine (NORVASC) 5 mg tablet Take 5 mg by mouth. - alendronate (FOSAMAX) 70 mg tablet Take 1 tablet by mouth one time a week. - atorvastatin (LIPITOR) 40 mg tablet Take 40 mg by mouth. - biotin 5 mg capsule Take 5 mg by mouth. - escitalopram oxalate (LEXAPRO) 20 mg tablet Take 20 mg by mouth. - gabapentin (NEURONTIN) 300 mg capsule Take 300 mg by mouth daily at bedtime. - revefenacin (YUPELRI) 175 mcg/3 mL solution for nebulization 175 mcg. - losartan (COZAAR) 100 mg tablet Take 100 mg by mouth. Encounter Status:Closed by KATIA GOSS on 05/02/24 [facility] 05-02-2024 Note HNO ID: [id number] Author: KATIA GOSS RD Service: ? Author Type: Registered Dietitian Type: Progress Notes Filed: 05/02/2024 15:20 Note Text: Oncology Nutrition Therapy Progress Note I have communicated my name and active licensure. The patient's identity and physical location were verified at the time of this visit. Either the patient or their legal sales promotion representative has been informed of the risks and benefits of -- and alternatives to -- treatment through a remote evaluation and consents to proceed with the evaluation remotely. RECOMMENDED MALNUTRITION DIAGNOSIS: SEVERE PROTEIN-CALORIE MALNUTRITION per RD on 04/17/2024 Some elements copied from my note on 04/17/2024, have been updated and all reflect current decision making from today, 05/02/2024 Nutrition Intervention: -aim for small frequent meals/snacks - eat around the clock every 3 hours versus waiting on hunger cues -aim for soft/moist easy to chew foods -reviewed tips for taste changes -start baking soda/salt water rinses -use various seasonings, sauces, condiments, cream soups, gravies, etc to add flavor to foods -encouraged adequate hydration -aim for 60-64 ounces non-caffeine containing fluids -discussed oral nutrition supplements -Ensure Plus High Protein or equivalent; goal 2 per day -May mix with ice cream or frozen fruit to enhance flavor -incorporate calorie/protein boosting techniques at meals/snacks -whole milk, full fat dairy, cream, butter/margarine, full fat hansen/dressing/condiments, oils, avocado, peanut butter, etc. Nutrition Monitoring AND Evaluation: -PO Intake -Wt status -BM's -Supplement tolerance/acceptance -Biochemical Markers -Plan of care Date of last encounter: April 17, 2024 Patient met goal(s): Partially Patient's symptoms are: GI: constipation and dry heaves Oral: taste changes Behavioral: altered appetite Patient presents for nutrition counseling for: malignant neoplasm of overlapping sites of bladder Current Treatment: neoadjuvant gemcitabine + cisplatin Previous Treatment(s): s/p TURBT Pt c/o constipation and dry heaves. She reports she is taking antiemetics and OTC stool softeners. Pt's weight is stable since initial encounter. She reports appetite remains varied, but she has been able to increase her consumption of protein. She has started to include more soft/moist protein sources such as meatloaf and fish. She did trial ONS, she tolerated well, but did not care for the taste. However, she is willing to continue taking daily to supplement her intakes and will experiment with mixing it with ice cream or frozen fruit. READINESS TO LEARN Cognitive ability: Alert and oriented Motivation to learn: Interested Family support: Unable to assess - Family not present Instruction provided to: Patient Patient learns best by: Multiple Methods Factors affecting learning: None Physical limitations affecting learning: None Educational materials provided: none this visit Need for Follow up: will continue to follow Referred by: Sagar WHITFIELD Billing Type: Re-assess/15 min 1 unit Billed Time: 15 minutes Signed by: Katia Goss RDN, RENETTA [facility] 05-02-2024 History of Present illness Narrative Oncology Nutrition Therapy Progress Note I have communicated my name and active licensure. The patient's identity and physical location were verified at the time of this visit. Either the patient or their legal sales promotion representative has been informed of the risks and benefits of -- and alternatives to -- treatment through a remote evaluation and consents to proceed with the evaluation remotely. RECOMMENDED MALNUTRITION DIAGNOSIS: SEVERE PROTEIN-CALORIE MALNUTRITION per RD on 04/17/2024 Some elements copied from my note on 04/17/2024, have been updated and all reflect current decision making from today, 05/02/2024 Nutrition Intervention: -aim for small frequent meals/snacks - eat around the clock every 3 hours versus waiting on hunger cues -aim for soft/moist easy to chew foods -reviewed tips for taste changes -start baking soda/salt water rinses -use various seasonings, sauces, condiments, cream soups, gravies, etc to add flavor to foods -encouraged adequate hydration -aim for 60-64 ounces non-caffeine containing fluids -discussed oral nutrition supplements -Ensure Plus High Protein or equivalent; goal 2 per day -May mix with ice cream or frozen fruit to enhance flavor -incorporate calorie/protein boosting techniques at meals/snacks -whole milk, full fat dairy, cream, butter/margarine, full fat hansen/dressing/condiments, oils, avocado, peanut butter, etc. Nutrition Monitoring & Evaluation: -PO Intake -Wt status -BM's -Supplement tolerance/acceptance -Biochemical Markers -Plan of care Date of last encounter: April 17, 2024 Patient met goal(s): Partially Patient's symptoms are: GI: constipation and dry heaves Oral: taste changes Behavioral: altered appetite Patient presents for nutrition counseling for: malignant neoplasm of overlapping sites of bladder Current Treatment: neoadjuvant gemcitabine + cisplatin Previous Treatment(s): s/p TURBT Pt c/o constipation and dry heaves. She reports she is taking antiemetics and OTC stool softeners. Pt's weight is stable since initial encounter. She reports appetite remains varied, but she has been able to increase her consumption of protein. She has started to include more soft/moist protein sources such as meatloaf and fish. She did trial ONS, she tolerated well, but did not care for the taste. However, she is willing to continue taking daily to supplement her intakes and will experiment with mixing it with ice cream or frozen fruit. READINESS TO LEARN Cognitive ability: Alert and oriented Motivation to learn: Interested Family support: Unable to assess - Family not present Instruction provided to: Patient Patient learns best by: Multiple Methods Factors affecting learning: None Physical limitations affecting learning: None Educational materials provided: none this visit Need for Follow up: will continue to follow Referred by: Sagar WHITFIELD Billing Type: Re-assess/15 min 1 unit Billed Time: 15 minutes Signed by: Katia Goss RDN, LD documented in this encounter [facility] 04-25-2024 Note HNO ID: [id number] Author: KRYSTAL PAIGE LSW Service: ? Author Type: Painter Maintenance Type: Progress Notes Filed: 04/25/2024 16:06 Note Text: SOCIAL WORK FOLLOW UP NOTE: [facility] Date of service:04/25/24 Svetlana Adrian is being seen for a follow up social work visit. Today's visit includes: spouse and patient TOPICS ADDRESSED: wig fitting PLAN: Continue follow up as needed Assigned SW listed in Care Team tab: Yes Patient requested a wig. Patient was able to find a wig from the complementary onsite wig bank. No other needs or concerns were identified.SW will remain available and will follow up as appropriate. SANJANA Ornelas [facility] 04-25-2024 History of Present illness Narrative SOCIAL WORK FOLLOW UP NOTE: [facility] Date of service:04/25/24 Svetlana Adrian is being seen for a follow up social work visit. Today's visit includes: spouse and patient TOPICS ADDRESSED: wig fitting PLAN: Continue follow up as needed Assigned SW listed in Care Team tab: Yes Patient requested a wig. Patient was able to find a wig from the complementary onsite wig bank. No other needs or concerns were identified.SW will remain available and will follow up as appropriate. SANJANA Ornelas documented in this encounter [facility] 04-25-2024 Note HNO ID: [id number] Author: ASHLEY MARTINEZ RN Service: ? Author Type: Registered Nurse Type: Progress Notes Filed: 04/25/2024 15:21 Note Text: K 3.[address] Dunn. Pt reports she was prescribed Potassium by another physician but she just doesn't take it. Dr. Dunn came back to tx and spoke to patient at chairside instructing her to take the Potassium she was previously prescribed. Pt verbalizes understanding. Ashley Martinez RN [facility] 04-25-2024 History of Present illness Narrative K 3.[address] Dunn. Pt reports she was prescribed Potassium by another physician but she just doesn't take it. Dr. Dunn came back to tx and spoke to patient at chairside instructing her to take the Potassium she was previously prescribed. Pt verbalizes understanding. Ashley Martinez RN Cisplatin was held D1C1 r/t CrCl <60. Pt is here for D8C1, Dr. Dunn would like to decrease dose and divide it between Day 1 and Day 8. Pt will receive first Cisplatin today (half dose 25 mg/m2) and omit the other half dose this cycle. She will then get full dose 50 mg/m2 with next cycle. 25mg/m2 Day 1 and 25 mg/m2 Day 8. Pharmacy to adjust orders and send plan to for signature. Tx nurse informed. Ashley Martinez RN documented in this encounter [facility] 04-25-2024 Note HNO ID: [id number] Author: ASHLEY MARTINEZ, RN Service: ? Author Type: Registered Nurse Type: Progress Notes Filed: 04/25/2024 15:21 Note Text: Cisplatin was held D1C1 r/t CrCl <60. Pt is here for D8C1, Dr. Dunn would like to decrease dose and divide it between Day 1 and Day 8. Pt will receive first Cisplatin today (half dose 25 mg/m2) and omit the other half dose this cycle. She will then get full dose 50 mg/m2 with next cycle. 25mg/m2 Day 1 and 25 mg/m2 Day 8. Pharmacy to adjust orders and send plan to for signature. Tx nurse informed. Ashley Martinez RN [facility] 04-25-2024 Instructions Leydi Ledezma - 04/25/2024 9:11 AM EDT GemCis C1 D8 today Follow up with belt brander RTC for C2 D1 in 2 weeks (05/09) Labs same day Can see Doris RTC with me for C3 in 5 weeks Labs same day documented in this encounter [facility] 04-25-2024 History of Present illness Narrative Images from the original note were not included. NAME: Svetlana Adrian CLINIC NO.: [id number] DATE OF SERVICE: April 25, 2024 (Sagar) Some elements in this clinic note that are critical to medical decision making have been carefully reviewed and included from a prior clinic note dated: April 04, 2024 (Sagar) Referring Provider: Lin Dalton MD Additional Clinicians involved in Svetlana Adrian's care: Alejandro Ware DIAGNOSIS: Muscle invasive bladder Ca. ASSESSMENT: 68 year old woman with chronic tobacco use and muscle invasive bladder cancer s/p TURBT with Dr. Dalton mid-January 2024, with no evidence of metastatic disease on staging CT's done in mid-March 2024. Historically, she has preserved kidney function and should be able to tolerate Cisplatin without too much difficulty in the neoadjuvant setting. PLAN: GemCis C1 D8 today (Held Cis last week) Will give 1/2 dose today and then give Cisplatin D1 and 8 at 25 mg/m2 each day Follow up with belt brander RTC for C2 D1 in 2 weeks (05/09) Labs same day Can see Doris RTC with me for C3 in 5 weeks Labs same day HPI: CASE HISTORY: Reverse Chronological Order 04/18/2024-Current - GemCis D1, 8 q 21 days 03/28/2024 - CT Chest: Moderate emphysematous changes/COPD. No acute infiltrates or suspicious nodules to suggest metastatic disease. Mild left hydronephrosis incompletely included on today's study 01/30/2024 - CT A/P: No bowel obstruction, ileus, or appreciable inflammatory changes, distal colonic diverticulosis, but no appreciable diverticulitis. Slight wall thickening of urinary bladder. Cystitis? Marked atherosclerotic disease of aorta an branches, but no aneurysm or occlusion 01/23/2024 - XR Urethrogram: Left retrograde pyelogram with no filling defect or mass observed 01/23/2024 - Bladder mass, transurethral resection: Dr. 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 Recommend cystoscopy. No obstructive uropathy. 01/13/2024 - CT A/P: for hematuria Left bladder wall masslike thickening concerning for malignancy. Recommend urology consultation. Colonic diverticulosis Updated Visit, April 25, 2024: Svetlana returns with Bill today for treatment. She began GemCis on 04/18, has developed nausea but overall is tolerating well. She endorses continuing to smoke although intends to quit soon. Her appetite is not that great, however she has gained a pound. Initial Visit, April 04, 2024: Svetlana Adrian presents today for a Hematology and Oncology evaluation. She is joined by her , Royer. She is a 68 year old female who was found to have a bladder mass on imaging in January. TURBT confirmed malignancy with lamina propria and muscularis propria invasion. She has met with Dr. Ware to consider her surgical options. Anticipate moving forward with neoadjuvant chemotherapy with gemcitabine + cisplatin vs. Dickenson / Carbo She denies use of supplemental oxygen although she feels she could use it after walking long distances. FMHx of bladder cancer in her mother and prostate cancer in her brother. REVIEW OF SYSTEMS Per HPI and otherwise negative by full review of organ systems. ECOG PERFORMANCE STATUS: 1- Restricted in physically strenuous activity. Carries out light duty. PHYSICAL EXAMINATION: Vitals: BP 123/83 Pulse 76 Temp (Src) 97.1 (Temporal) Resp 18 Wt 106 lb 14.8 oz (48.5kg) SpO2 93% Body surface area is 1.42 meters squared. Exam limited to gross visualization where appropriate. Gen.: This is an age-appropriate patient in no acute distress. Head: Appears atraumatic with no visible lesions. Eyes: Pupils equally round and reactive to light, extraocular muscles are intact. Neck: Supple. Respiratory: Appears to be respiring comfortably. Neurologic: Nonfocal to gross visualization. Alert and oriented 3. Psychiatric: No evidence of inappropriate anxiety or depression. Skin: Visible areas of skin without rash, lesions, wounds or petechiae. ALLERGIES: ALLERGIES No Known Allergies MEDICATIONS: ondansetron (ZOFRAN) 8 mg tablet Take 1 tablet by mouth every 8 hours as needed for nausea/vomiting. zinc sulfate (ZINC-15 ORAL) Take by mouth. meloxicam (MOBIC) 7.5 mg tablet Take 7.5 mg by mouth once daily. metoprolol succinate ER (TOPROL XL) 100 mg Take [address] (PROTONIX) 40 mg tablet Take 40 mg by mouth once daily. Pramipexole 0.75 mg tablet Take 0.75 mg by mouth. guaiFENesin (MUCINEX) 600 mg 12 hr tablet Take 1,200 mg by mouth. budesonide (PULMICORT) 0.5 mg/2 mL nebulizer solution 0.5 mg. arformoterol (BROVANA) 15 mcg/2 mL nebulizer solution 15 mcg. fluticasone (FLONASE) 50 mcg/actuation nasal spray 2 Sprays. Ipratropium (ATROVENT HFA) 17 mcg/actuation inhaler Inhale 2 Puffs as instructed. amLODIPine (NORVASC) 5 mg tablet Take 5 mg by mouth. alendronate (FOSAMAX) 70 mg tablet Take 1 tablet by mouth one time a week. atorvastatin (LIPITOR) 40 mg tablet Take 40 mg by mouth. biotin 5 mg capsule Take 5 mg by mouth. escitalopram oxalate (LEXAPRO) 20 mg tablet Take 20 mg by mouth. gabapentin (NEURONTIN) 300 mg capsule Take 300 mg by mouth daily at bedtime. revefenacin (YUPELRI) 175 mcg/3 mL solution for nebulization 175 mcg. losartan (COZAAR) 100 mg tablet Take 100 mg by mouth. ensifentrine (OHTUVAYRE) 3 mg/2.5 mL suspension for nebulization Use 3 mg via nebulizer two times a day. LABORATORY VALUES: WBC (k/uL) Date Value 04/25/2024 4.04 RBC (m/uL) Date Value 04/25/2024 4.60 Hemoglobin (g/dL) Date Value 04/25/2024 13.0 Hematocrit (%) Date Value 04/25/2024 37.4 MCV (fL) Date Value 04/25/2024 81.3 MCH (pg) Date Value 04/25/2024 28.3 MCHC (g/dL) Date Value 04/25/2024 34.8 RDW-CV (%) Date Value 04/25/2024 14.7 Platelet Count (k/uL) Date Value 04/25/2024 241 MPV (fL) Date Value 04/25/2024 8.3 (L) Glucose (mg/dL) Date Value 04/25/2024 128 (H) BUN (mg/dL) Date Value 04/25/2024 8 Creatinine (mg/dL) Date Value 04/25/2024 0.68 Sodium (mmol/L) Date Value 04/25/2024 122 (L) Potassium (mmol/L) Date Value 04/25/2024 3.4 (L) Chloride (mmol/L) Date Value 04/25/2024 81 (L) CO2 (mmol/L) Date Value 04/25/2024 29 Protein, Total (g/dL) Date Value 04/25/2024 6.5 Albumin (g/dL) Date Value 04/25/2024 4.1 Calcium, Total (mg/dL) Date Value 04/25/2024 9.8 Alkaline Phosphatase (U/L) Date Value 04/25/2024 71 Bilirubin, Total (mg/dL) Date Value 04/25/2024 0.4 AST (U/L) Date Value 04/25/2024 29 ALT (U/L) Date Value 04/25/2024 36 DIAGNOSIS: (C67.8) Malignant neoplasm of overlapping sites of bladder (HCC) (primary encounter diagnosis) PAST MEDICAL HISTORY Diagnosis Date Bladder cancer (HCC) 2023 Bladder mass COPD (chronic obstructive pulmonary disease) (HCC) Former smoker HTN (hypertension) Hyperlipidemia Osteoporosis Restless leg History reviewed. No pertinent surgical history. History reviewed. No pertinent family history. I spent a total of 30 minutes on the date of the service which included preparing to see the patient, [id number] patient care, completing clinical documentation, obtaining and/or reviewing separately obtained history, performing a medically appropriate examination, counseling and educating the patient/family/caregiver, ordering medications, tests, or procedures, independently interpreting results (not separately reported), communicating results to the patient/family/caregiver, and care coordination (not separately reported). Lee Dunn MD, CPE Hematology and Oncology Services Provided at: [place], [place] Scribe Attestation: This note was scribed by Leydi Ledezma on April 25, 2024 under the direction and supervision of Dr. Lee Dunn. I attest that all of the information documented is correct to the best of my knowledge. Provider Attestation: I, Lee Dunn MD, attest that all information documented by the above scribe is correct, and was supervised by me and under my direction. CC: Lin Ware documented in this encounter [facility] 04-25-2024 Note HNO ID: [id number] Author: LEE DUNN MD Service: ? Author Type: Physician Type: Progress Notes Filed: 04/26/2024 08:40 Note Text: NAME: Svetlana Adrian [facility] NO.: [id number] DATE OF SERVICE: April 25, 2024 (Sagar) Some elements in this clinic note that are critical to medical decision making have been carefully reviewed and included from a prior clinic note dated: April 04, 2024 (Phyllisjuana) Referring Provider: Lin Dalton MD Additional Clinicians involved in Svetlana Adrian's care: Alejandro Ware DIAGNOSIS: Muscle invasive bladder Ca. ASSESSMENT: 68 year old woman with chronic tobacco use and muscle invasive bladder cancer s/p TURBT with Dr. Dalton mid-January 2024, with no evidence of metastatic disease on staging CT's done in mid-March 2024. Historically, she has preserved kidney function and should be able to tolerate Cisplatin without too much difficulty in the neoadjuvant setting. PLAN: GemCis C1 D8 today (Held Cis last week) Will give 1/2 dose today and then give Cisplatin D1 and 8 at 25 mg/m2 each day Follow up with belt brander RTC for C2 D1 in 2 weeks (05/09) Labs same day Can see Doris RTC with me for C3 in 5 weeks Labs same day HPI: CASE HISTORY: Reverse Chronological Order 04/18/2024-Current - GemCis D1, 8 q 21 days 03/28/2024 - CT Chest: Moderate emphysematous changes/COPD. No acute infiltrates or suspicious nodules to suggest metastatic disease. Mild left hydronephrosis incompletely included on today's study 01/30/2024 - CT A/P: No bowel obstruction, ileus, or appreciable inflammatory changes, distal colonic diverticulosis, but no appreciable diverticulitis. Slight wall thickening of urinary bladder. Cystitis? Marked atherosclerotic disease of aorta an branches, but no aneurysm or occlusion 01/23/2024 - XR Urethrogram: Left retrograde pyelogram with no filling defect or mass observed 01/23/2024 - Bladder mass, transurethral resection: Dr. Daltno at [facility] [place] - High-grade urothelial carcinoma with lamina propria and muscularis propria invasion 01/17/2024 - CT A/P: Irregular 4.8 cm mass along the left bladder wall suggestive of neoplasm. Recommend cystoscopy. No obstructive uropathy. 01/13/2024 - CT A/P: for hematuria Left bladder wall masslike thickening concerning for malignancy. Recommend urology consultation. Colonic diverticulosis Updated Visit, April 25, 2024: Svetlana returns with Royer today for treatment. She began GemCis on 04/18, has developed nausea but overall is tolerating well. She endorses continuing to smoke although intends to quit soon. Her appetite is not that great, however she has gained a pound. Initial Visit, April 04, 2024: Svetlana Adrian presents today for a Hematology and Oncology evaluation. She is joined by her , Royer. She is a 68 year old female who was found to have a bladder mass on imaging in January. TURBT confirmed malignancy with lamina propria and muscularis propria invasion. She has met with Dr. Ware to consider her surgical options. Anticipate moving forward with neoadjuvant chemotherapy with gemcitabine + cisplatin vs. Dickenson / Carbo She denies use of supplemental oxygen although she feels she could use it after walking long distances. FMHx of bladder cancer in her mother and prostate cancer in her brother. REVIEW OF SYSTEMS Per HPI and otherwise negative by full review of organ systems. ECOG PERFORMANCE STATUS: 1- Restricted in physically strenuous activity. Carries out light duty. PHYSICAL EXAMINATION: Vitals: BP 123/83 Pulse 76 Temp (Src) 97.1 (Temporal) Resp 18 Wt 106 lb 14.8 oz (48.5kg) SpO2 93% Body surface area is 1.42 meters squared. Exam limited to gross visualization where appropriate. Gen.: This is an age-appropriate patient in no acute distress. Head: Appears atraumatic with no visible lesions. Eyes: Pupils equally round and reactive to light, extraocular muscles are intact. Neck: Supple. Respiratory: Appears to be respiring comfortably. Neurologic: Nonfocal to gross visualization. Alert and oriented ?3. Psychiatric: No evidence of inappropriate anxiety or depression. Skin: Visible areas of skin without rash, lesions, wounds or petechiae. ALLERGIES: ALLERGIES No Known Allergies MEDICATIONS: ondansetron (ZOFRAN) 8 mg tablet Take 1 tablet by mouth every 8 hours as needed for nausea/vomiting. zinc sulfate (ZINC-15 ORAL) Take by mouth. meloxicam (MOBIC) 7.5 mg tablet Take 7.5 mg by mouth once daily. metoprolol succinate ER (TOPROL XL) 100 mg Take 100 mg by mouth. pantop (more content not included)... [facility] 04-24-2024 Note Education (NUTRSA) SVETLANA ADRIAN ([id number]) 1955 F Date Time Provider Department 04/24/24 2:15 PM KATIA GOSS Reason for Visit: Nutrition Telephone [2013] Cmt: No answer Primary Visit Diagnosis:Malignant neoplasm of overlapping sites of bladder (HCC) [C67.8] Other Visit Diagnosis:Severe protein-calorie malnutrition (HCC) [E43] During your visit today, we recorded the following information about you: Allergies As of Date: 04/24/2024 (No Known Allergies) Date Reviewed: 04/18/2024 Reviewed by: Katia Goss RD - Fully Assessed Prescriptions as of 04/25/2024 - ondansetron (ZOFRAN) 8 mg tablet Take 1 tablet by mouth every 8 hours as needed for nausea/vomiting. - zinc sulfate (ZINC-15 ORAL) Take by mouth. - meloxicam (MOBIC) 7.5 mg tablet Take 7.5 mg by mouth once daily. - metoprolol succinate ER (TOPROL XL) 100 mg Take 100 mg by mouth. - pantoprazole DR (PROTONIX) 40 mg tablet Take 40 mg by mouth once daily. - Pramipexole 0.75 mg tablet Take 0.75 mg by mouth. - guaiFENesin (MUCINEX) 600 mg 12 hr tablet Take 1,200 mg by mouth. - budesonide (PULMICORT) 0.5 mg/2 mL nebulizer solution 0.5 mg. - arformoterol (BROVANA) 15 mcg/2 mL nebulizer solution 15 mcg. - fluticasone (FLONASE) 50 mcg/actuation nasal spray 2 Sprays. - Ipratropium (ATROVENT HFA) 17 mcg/actuation inhaler Inhale 2 Puffs as instructed. - amLODIPine (NORVASC) 5 mg tablet Take 5 mg by mouth. - alendronate (FOSAMAX) 70 mg tablet Take 1 tablet by mouth one time a week. - atorvastatin (LIPITOR) 40 mg tablet Take 40 mg by mouth. - biotin 5 mg capsule Take 5 mg by mouth. - escitalopram oxalate (LEXAPRO) 20 mg tablet Take 20 mg by mouth. - gabapentin (NEURONTIN) 300 mg capsule Take 300 mg by mouth daily at bedtime. - revefenacin (YUPELRI) 175 mcg/3 mL solution for nebulization 175 mcg. - losartan (COZAAR) 100 mg tablet Take 100 mg by mouth. Encounter Status:Closed by KATIA GOSS on 04/25/24 [facility] 04-24-2024 Note HNO ID: [id number] Author: KATIA GOSS RD Service: ? Author Type: Registered Dietitian Type: Progress Notes Filed: 04/25/2024 08:26 Note Text: Oncology Nutrition Therapy Progress Note I have communicated my name and active licensure. The patient's identity and physical location were verified at the time of this visit. Either the patient or their legal sales promotion representative has been informed of the risks and benefits of -- and alternatives to -- treatment through a remote evaluation and consents to proceed with the evaluation remotely. RECOMMENDED MALNUTRITION DIAGNOSIS: SEVERE PROTEIN-CALORIE MALNUTRITION per RD on 04/17/2024 2:15p- called patient for scheduled phone appointment. No answer, LVM with return contact information. Signed by: Katia Goss RDN, LD [facility] 04-24-2024 History of Present illness Narrative Oncology Nutrition Therapy Progress Note I have communicated my name and active licensure. The patient's identity and physical location were verified at the time of this visit. Either the patient or their legal sales promotion representative has been informed of the risks and benefits of -- and alternatives to -- treatment through a remote evaluation and consents to proceed with the evaluation remotely. RECOMMENDED MALNUTRITION DIAGNOSIS: SEVERE PROTEIN-CALORIE MALNUTRITION per RD on 04/17/2024 2:15p- called patient for scheduled phone appointment. No answer, LVM with return contact information. Signed by: Katia Goss RDN, LD documented in this encounter [facility] 04-24-2024 Telephone encounter Note Patient has an OTV appointment on 04/25. Labs drawn 04/18. Please place lab orders if needed. Gabrielle Li MA [facility] 04-24-2024 Miscellaneous Notes Patient has an OTV appointment on 04/25. Labs drawn 04/18. Please place lab orders if needed. Gabrielle Li MA documented in this encounter [facility] 04-23-2024 Telephone encounter Note CYCLE 1/DAY 1 POST TREATMENT CALL Today's date: April 23, 2024 Treatment Regimen: Gemcitabine. Cisplatin held due to CrCl. C1D1 Date: 04/18/24 Called patient to follow-up on symptom management. Spoke with patient. SYMPTOM ASSESSMENT Neuro: Headache - occasional, Dizziness - when outside in warm weather, and Numbness/Weakness/Tingling - in her lower extremities. Pt relates this to poor circulation.. CV/Resp: Shortness of breath - increased w/ activity. Pt has h/o COPD. Saw her scale technician. and Cough: Yes; productive white, yellow sputum and occasional GI/: Appetite: Pt states, not good, but it's getting better. , Nausea - Occasional. Oral antiemetics pended., Fluid intake: Drinking lots of water. , Diarrhea: yes, fluctuates between loose and constipated., Constipation: yes. Has fiber pills that she's taking., and Bladder/Urinary Changes: Increased output Integument: None Activity: Patient reported decreased energy level Do you need to take naps? Yes; Do you wake up feeling rested? No Rates her fatigue 03/22. Pain: Occasional pelvic pressure. Fever: No Chills: No Any new referrals needed? No Reinforced CURRENT treatment education based on current and anticipated symptoms. Discussed port/line care and patient verbalizes understanding: Not Applicable Patient instructed to contact office or after hours Hematology/Oncology fellow for: temperature ? 100.4; questions or concerns. Patient verbalized understanding of when to seek medical attention and after hours number protocol. Sergei Carpenter RN [facility] 04-23-2024 Miscellaneous Notes CYCLE 1/DAY 1 POST TREATMENT CALL Today's date: April 23, 2024 Treatment Regimen: Gemcitabine. Cisplatin held due to CrCl. C1D1 Date: 04/18/24 Called patient to follow-up on symptom management. Spoke with patient. SYMPTOM ASSESSMENT Neuro: Headache - occasional, Dizziness - when outside in warm weather, and Numbness/Weakness/Tingling - in her lower extremities. Pt relates this to poor circulation.. CV/Resp: Shortness of breath - increased w/ activity. Pt has h/o COPD. Saw her scale technician. and Cough: Yes; productive white, yellow sputum and occasional GI/: Appetite: Pt states, not good, but it's getting better. , Nausea - Occasional. Oral antiemetics pended., Fluid intake: Drinking lots of water. , Diarrhea: yes, fluctuates between loose and constipated., Constipation: yes. Has fiber pills that she's taking., and Bladder/Urinary Changes: Increased output Integument: None Activity: Patient reported decreased energy level Do you need to take naps? Yes; Do you wake up feeling rested? No Rates her fatigue 03/22. Pain: Occasional pelvic pressure. Fever: No Chills: No Any new referrals needed? No Reinforced CURRENT treatment education based on current and anticipated symptoms. Discussed port/line care and patient verbalizes understanding: Not Applicable Patient instructed to contact office or after hours Hematology/Oncology fellow for: temperature ? 100.4; questions or concerns. Patient verbalized understanding of when to seek medical attention and after hours number protocol. Sergei Carpenter RN 2nd call placed to pt. No answer. Message left requesting call back. Sergei Carpenter RN CYCLE 1/DAY 1 POST TREATMENT CALL Today's date: April 22, 2024 Treatment Regimen: Gemcitabine & Cisplatin C1D1 Date: 04/18/24 Called patient to follow-up on symptom management. Spoke with pt. Pt reports she is currently getting her RSV vaccine and requests to call RNCC back at a later time. Sergei Carpenter RN documented in this encounter [facility] 04-23-2024 Telephone encounter Note 2nd call placed to pt. No answer. Message left requesting call back. Sergei Carpenter RN [facility] 04-22-2024 Telephone encounter Note Update on patient from last week. Pt was in 04/18 for D1C1. CrCl [address] Cabello in your absence. Orders were given to hold Cisplatin that day. Pt received IVF and Dickenson only. Ashley Martinez RN [facility] 04-22-2024 Miscellaneous Notes Update on patient from last week. Pt was in 04/18 for D1C1. CrCl [address] Cabello in your absence. Orders were given to hold Cisplatin that day. Pt received IVF and Dickenson only. Ashley Martinez RN documented in this encounter [facility] 04-22-2024 Telephone encounter Note CYCLE 1/DAY 1 POST TREATMENT CALL Today's date: April 22, 2024 Treatment Regimen: Gemcitabine & Cisplatin C1D1 Date: 04/18/24 Called patient to follow-up on symptom management. Spoke with pt. Pt reports she is currently getting her RSV vaccine and requests to call RNCC back at a later time. Sergei Carpenter RN [facility] 04-18-2024 Note HNO ID: [id number] Author: KRYSTAL PAIGE LSW Service: ? Author Type: Painter Maintenance Type: Progress Notes Filed: 04/18/2024 15:51 Note Text: SOCIAL WORK FOLLOW UP NOTE: [facility] Date of service:04/18/24 Svetlana Adrian is being seen for a follow up social work visit. Today's visit includes: spouse and patient TOPICS ADDRESSED: coping/support, finances, and community resources PLAN: Assist with financial support applications, Continue follow up as needed , Provide emotional support to patient/family, and Referral to community resource F/U APPOINTMENT: PRN Assigned SHRUTHI listed in Care Team tab: Yes Medicaid application completed and mailed. [employer] [facility] application completed and faxed. SANJANA Ornelas [facility] 04-18-2024 History of Present illness Narrative SOCIAL WORK FOLLOW UP NOTE: [facility] Date of service:04/18/24 Svetlana Adrian is being seen for a follow up social work visit. Today's visit includes: spouse and patient TOPICS ADDRESSED: coping/support, finances, and community resources PLAN: Assist with financial support applications, Continue follow up as needed , Provide emotional support to patient/family, and Referral to community resource F/U APPOINTMENT: PRN Assigned SHRUTHI listed in Care Team tab: Yes Medicaid application completed and mailed. [employer] [facility] application completed and faxed. SANJANA Ornelas documented in this encounter [facility] 04-17-[address] - 04/17/2024 2:42 PM EDT -aim for small frequent meals/snacks - eat around the clock every 3 hours versus waiting on hunger cues -aim for soft/moist easy to chew foods -reviewed tips for taste changes -start baking soda/salt water rinses (see handout) -use various seasonings, sauces, condiments, cream soups, gravies, etc to add flavor to foods -encouraged adequate hydration -aim for 60-64 ounces non-caffeine containing fluids -discussed oral nutrition supplements -Ensure Plus High Protein or equivalent; goal 2-3 per day -May mix with ice cream or frozen fruit to enhance flavor -incorporate calorie/protein boosting techniques at meals/snacks -whole milk, full fat dairy, cream, butter/margarine, full fat hansen/dressing/condiments, oils, avocado, peanut butter, etc. documented in this encounter [facility] 04-17-2024 Note Education (NUTRSA) KAYLAHSVETLANA ([id number]) 1955 F Date Time Provider Department 04/17/24 2:15 PM KATIA GOSS Reason for Visit: Nutrition Telephone [2013] Primary Visit Diagnosis:Severe protein-calorie malnutrition (HCC) [E43] Other Visit Diagnosis:Malignant neoplasm of overlapping sites of bladder (HCC) [C67.8] Order(s):CONSULT TO ONCOLOGY NUTRITION [[id number]] Order #: [id number]: 1 During your visit today, we recorded the following information about you: Allergies As of Date: 04/17/2024 (No Known Allergies) Date Reviewed: 04/10/2024 Reviewed by: Sergei Carpenter, RN - Fully Assessed Prescriptions as of 04/18/2024 - sodium chloride soluble tablet 1 g Take 1 tablet by mouth once daily for 10 days. - ondansetron (ZOFRAN) 8 mg tablet Take 1 tablet by mouth every 8 hours as needed for nausea/vomiting. - zinc sulfate (ZINC-15 ORAL) Take by mouth. - meloxicam (MOBIC) 7.5 mg tablet Take 7.5 mg by mouth once daily. - metoprolol succinate ER (TOPROL XL) 100 mg Take 100 mg by mouth. - pantoprazole DR (PROTONIX) 40 mg tablet Take 40 mg by mouth once daily. - Pramipexole 0.75 mg tablet Take 0.75 mg by mouth. - guaiFENesin (MUCINEX) 600 mg 12 hr tablet Take 1,200 mg by mouth. - budesonide (PULMICORT) 0.5 mg/2 mL nebulizer solution 0.5 mg. - arformoterol (BROVANA) 15 mcg/2 mL nebulizer solution 15 mcg. - fluticasone (FLONASE) 50 mcg/actuation nasal spray 2 Sprays. - Ipratropium (ATROVENT HFA) 17 mcg/actuation inhaler Inhale 2 Puffs as instructed. - amLODIPine (NORVASC) 5 mg tablet Take 5 mg by mouth. - alendronate (FOSAMAX) 70 mg tablet Take 1 tablet by mouth one time a week. - atorvastatin (LIPITOR) 40 mg tablet Take 40 mg by mouth. - biotin 5 mg capsule Take 5 mg by mouth. - escitalopram oxalate (LEXAPRO) 20 mg tablet Take 20 mg by mouth. - gabapentin (NEURONTIN) 300 mg capsule Take 300 mg by mouth daily at bedtime. - revefenacin (YUPELRI) 175 mcg/3 mL solution for nebulization 175 mcg. - losartan (COZAAR) 100 mg tablet Take 100 mg by mouth. Encounter Status:Closed by KATIA GOSS on 04/18/24 [facility] 04-17-2024 Note HNO ID: [id number] Author: KATIA GOSS RD Service: ? Author Type: Registered Dietitian Type: Progress Notes Filed: 04/18/2024 10:27 Note Text: Oncology Nutrition Therapy Initial Assessment I have communicated my name and active licensure. The patient's identity and physical location were verified at the time of this visit. Either the patient or their legal sales promotion representative has been informed of the risks and benefits of -- and alternatives to -- treatment through a remote evaluation and consents to proceed with the evaluation remotely. RECOMMENDED MALNUTRITION DIAGNOSIS: SEVERE PROTEIN-CALORIE MALNUTRITION In the context of Chronic Illness or Injury based on: Unintentional Weight Loss: >7.5% in 3 months Insufficient Energy Intake: Less than 75% energy intake compared to estimated needs for greater than or equal to 1 month Nutrition Diagnosis: Increased protein and energy needs related to hypermetabolic disease process as evidenced by need for weight maintenance and preservation of muscle mass. Nutrition Intervention: -aim for small frequent meals/snacks - eat around the clock every 3 hours versus waiting on hunger cues -aim for soft/moist easy to chew foods -reviewed tips for taste changes -start baking soda/salt water rinses -use various seasonings, sauces, condiments, cream soups, gravies, etc to add flavor to foods -encouraged adequate hydration -aim for 60-64 ounces non-caffeine containing fluids -discussed oral nutrition supplements -Ensure Plus High Protein or equivalent; goal 2 per day -May mix with ice cream or frozen fruit to enhance flavor -referred to for evaluation for 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 -provided contact information for any further questions/concerns Nutrition Monitoring AND Evaluation: -PO Intake -Wt status -BM's -Supplement tolerance/acceptance -Biochemical Markers -Plan of care Patient's current symptoms are: GI: constipation and dry heaves Oral: chewing problems Behavioral: altered appetite Weight Concerns: weight loss Patient presents for nutrition counseling for: malignant neoplasm of overlapping sites of bladder Current Treatment: neoadjuvant gemcitabine + cisplatin Previous Treatment(s): s/p TURBT PMHx: anxiety, depression, COPD, hyperlipidemia, HTN. Labs: 04/07 Na 124- per medication record, pt on oral sodium tablets Pt c/o chewing difficulty due to having no teeth. Pt denies swallowing issues, denies current N/V/D. Pt c/o constipation. Pt denies food allergies/intolerances. Pt states appetite has been null and void for roughly 1.5-2 months. She states prior to that, despite no teeth she was eating well, adjusting textures, and maintaining her weight. She c/o no taste, foods tasting bland, which is also a barrier to adequate intakes. She has not tried any ONS and is open to this. Reviewed with pt importance of adequate calories/protein and preserving lean muscle mass. Reviewed above interventions, problem solved with pt on ways to meet recommendations, and answered all of patient's questions. Thank you for allowing me to participate in the care of this pt. Readiness to Learn: Cognitive ability: Alert and oriented Motivation to learn: Interested Family support: Unable to assess - Family not present Instruction provided to: Patient Patient learns best by: Multiple Methods Factors affecting learning: None Physical limitations affecting learning: None Educational materials provided: ONDPG- taste changes, soft/moist high protein foods. Anthropometrics: Height: No data found for this vital: Ht Current weight: Last 1 Encounter Wt Readings: Date: Wt: 04/04/2024 49.2 kg (108 lb 7.5 oz) There is no height or weight on file to calculate BMI. RMR can't be calculated - Height unrecorded. Weight Change: -11.2kg (18.5%) x ~2.5-3 mo ago from UBW, clinically significant UBW: 133# (60.4kg), pt stated about 2.5 months ago Dosing Weight: 49.2 kg Estimated kilocalorie needs: 0027-6642 kilocalories determined by 30-35 kcal/kg Estimated protein needs: 59-74 grams determined by 1.2-1.5 g/kg Dosing weight Estimated fluid needs: ~1461-6229 milliliters based on 1 mL per kcal (unless otherwise indicated) Nutrition Focused Physical Exam: Unable to perform exam due to patient unable to participate due to phone encounter, will re-attempt during reassessment. Potential Signs of Inflammation: chronic condition Pt stated she has noticed more fatigue and weakness. Allergies: Patient has no known allergies. Medications: Current Outpatient Medications Medication Sig Dispense Refill sodium chloride soluble tablet 1 g Take 1 tablet by mouth once daily for 10 days. 10 tablet 0 ondansetron (ZOFRAN) 8 (more content not included)... [facility] 04-17-2024 History of Present illness Narrative Oncology Nutrition Therapy Initial Assessment I have communicated my name and active licensure. The patient's identity and physical location were verified at the time of this visit. Either the patient or their legal sales promotion representative has been informed of the risks and benefits of -- and alternatives to -- treatment through a remote evaluation and consents to proceed with the evaluation remotely. RECOMMENDED MALNUTRITION DIAGNOSIS: SEVERE PROTEIN-CALORIE MALNUTRITION In the context of Chronic Illness or Injury based on: Unintentional Weight Loss: >7.5% in 3 months Insufficient Energy Intake: Less than 75% energy intake compared to estimated needs for greater than or equal to 1 month Nutrition Diagnosis: Increased protein and energy needs related to hypermetabolic disease process as evidenced by need for weight maintenance and preservation of muscle mass. Nutrition Intervention: -aim for small frequent meals/snacks - eat around the clock every 3 hours versus waiting on hunger cues -aim for soft/moist easy to chew foods -reviewed tips for taste changes -start baking soda/salt water rinses -use various seasonings, sauces, condiments, cream soups, gravies, etc to add flavor to foods -encouraged adequate hydration -aim for 60-64 ounces non-caffeine containing fluids -discussed oral nutrition supplements -Ensure Plus High Protein or equivalent; goal 2 per day -May mix with ice cream or frozen fruit to enhance flavor -referred to for evaluation for 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 -provided contact information for any further questions/concerns Nutrition Monitoring & Evaluation: -PO Intake -Wt status -BM's -Supplement tolerance/acceptance -Biochemical Markers -Plan of care Patient's current symptoms are: GI: constipation and dry heaves Oral: chewing problems Behavioral: altered appetite Weight Concerns: weight loss Patient presents for nutrition counseling for: malignant neoplasm of overlapping sites of bladder Current Treatment: neoadjuvant gemcitabine + cisplatin Previous Treatment(s): s/p TURBT PMHx: anxiety, depression, COPD, hyperlipidemia, HTN. Labs: 04/07 Na 124- per medication record, pt on oral sodium tablets Pt c/o chewing difficulty due to having no teeth. Pt denies swallowing issues, denies current N/V/D. Pt c/o constipation. Pt denies food allergies/intolerances. Pt states appetite has been null and void for roughly 1.5-2 months. She states prior to that, despite no teeth she was eating well, adjusting textures, and maintaining her weight. She c/o no taste, foods tasting bland, which is also a barrier to adequate intakes. She has not tried any ONS and is open to this. Reviewed with pt importance of adequate calories/protein and preserving lean muscle mass. Reviewed above interventions, problem solved with pt on ways to meet recommendations, and answered all of patient's questions. Thank you for allowing me to participate in the care of this pt. Readiness to Learn: Cognitive ability: Alert and oriented Motivation to learn: Interested Family support: Unable to assess - Family not present Instruction provided to: Patient Patient learns best by: Multiple Methods Factors affecting learning: None Physical limitations affecting learning: None Educational materials provided: ONDPG- taste changes, soft/moist high protein foods. Anthropometrics: Height: No data found for this vital: Ht Current weight: Last 1 Encounter Wt Readings: Date: Wt: 04/04/2024 49.2 kg (108 lb 7.5 oz) There is no height or weight on file to calculate BMI. RMR can't be calculated - Height unrecorded. Weight Change: -11.2kg (18.5%) x ~2.5-3 mo ago from UBW, clinically significant UBW: 133# (60.4kg), pt stated about 2.5 months ago Dosing Weight: 49.2 kg Estimated kilocalorie needs: 4553-4144 kilocalories determined by 30-35 kcal/kg Estimated protein needs: 59-74 grams determined by 1.2-1.5 g/kg Dosing weight Estimated fluid needs: ~0228-5569 milliliters based on 1 mL per kcal (unless otherwise indicated) Nutrition Focused Physical Exam: Unable to perform exam due to patient unable to participate due to phone encounter, will re-attempt during reassessment. Potential Signs of Inflammation: chronic condition Pt stated she has noticed more fatigue and weakness. Allergies: Patient has no known allergies. Medications: Current Outpatient Medications Medication Sig Dispense Refill sodium chloride soluble tablet 1 g Take 1 tablet by mouth once daily for 10 days. 10 tablet 0 ondansetron (ZOFRAN) 8 mg tablet Take 1 tablet by mouth every 8 hours as needed for nausea/vomiting. 90 tablet 1 zinc sulfate (ZINC-15 ORAL) Take by mouth. meloxicam (MOBIC) 7.5 mg tablet Take 7.5 mg by mouth once daily. metoprolol succinate ER (TOPROL XL) 100 mg Take [address]op[address] (PROTONIX) 40 mg tablet Take 40 mg by mouth once daily. Pramipexole 0.75 mg tablet Take 0.75 mg by mouth. guaiFENesin (MUCINEX) 600 mg 12 hr tablet Take 1,200 mg by mouth. budesonide (PULMICORT) 0.5 mg/2 mL nebulizer solution 0.5 mg. arformoterol (BROVANA) 15 mcg/2 mL nebulizer solution 15 mcg. fluticasone (FLONASE) 50 mcg/actuation nasal spray 2 Sprays. Ipratropium (ATROVENT HFA) 17 mcg/actuation inhaler Inhale 2 Puffs as instructed. amLODIPine (NORVASC) 5 mg tablet Take 5 mg by mouth. alendronate (FOSAMAX) 70 mg tablet Take 1 tablet by mouth one time a week. atorvastatin (LIPITOR) 40 mg tablet Take 40 mg by mouth. biotin 5 mg capsule Take 5 mg by mouth. escitalopram oxalate (LEXAPRO) 20 mg tablet Take 20 mg by mouth. gabapentin (NEURONTIN) 300 mg capsule Take 300 mg by mouth daily at bedtime. revefenacin (YUPELRI) 175 mcg/3 mL solution for nebulization 175 mcg. losartan (COZAAR) 100 mg tablet Take 100 mg by mouth. No current facility-administered medications for this visit. Need for Follow up: will continue to follow Referred by: Sagar WHITFIELD Billing Type: Initial Assess/15 min 2 units Time Spent with Patient: 30 minutes Signed by: Katia Goss RD, RENETTA documented in this encounter [facility] 04-11-2024 Telephone encounter Note Patients called back and confirmed all appts. Rd Le[facility] 04-11-2024 Miscellaneous Notes Patients called back and confirmed all appts. Rd [facility] Patient has been scheduled for RV and treatment w/ JOHN on 04/25. Made a phone appt with Usha on 04/17 since she is not in the office on and Fridays. Called and left a message on patient's VM regarding these appts. [facility] Patient is scheduled for treatment on 04/18, Usha not in the office. Patient still has a pending follow up appointment out for response from Dr. Bailey.. Will await further instructions for him for her next set of appointments to coordinate. Rd Lebl[facility] Clerical: Please pair nutrition appointment w/ her other appointments. Thanks! Sergei Carpenter RN Signed orders. Thank you Pt would like to meet w/ belt brander. Order pended. Sergei Carpenter RN documented in this encounter [facility] 04-11-2024 Telephone encounter Note Patient has been scheduled for RV and treatment w/ JOHN on 04/25. Made a phone appt with Usha on 04/17 since she is not in the office on and Fridays. Called and left a message on patient's VM regarding these appts. Rd Lebl[facility] 04-10-2024 Telephone encounter Note Patient is scheduled for treatment on 04/18, Usha not in the office. Patient still has a pending follow up appointment out for response from Dr. Bailey.. Will await further instructions for him for her next set of appointments to coordinate. Rd [facility] 04-10-2024 Telephone encounter Note Clerical: Please pair nutrition appointment w/ her other appointments. Thanks! Sergei Carpenter RN [facility] 04-10-2024 Telephone encounter Note Signed orders. Thank you [facility] 04-10-2024 Telephone encounter Note Pt would like to meet w/ belt brander. Order pended. Sergei Carpenter RN [facility] 04-10-2024 Note HNO ID: [id number] Author: SERGEI CARPENTER RN Service: ? Author Type: Registered Nurse Type: Progress Notes Filed: 04/10/2024 12:38 Note Text: Interactive Account Manager Pre Chemo Patient identified by name and date of . YES Confirmed date and time for chemotherapy ? YES - Printed appointment reminder provided. Other appointments (labs, imaging) discussed? 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 NO Described the infusion room and what to expect. (What to wear, what to bring [iPad, books] amount of time treatment can take, meals and CC options for food) YES Note: NA Discussed whether the patient can eat prior to labs and treatment. YES Who is driving you to and from treatment? Spouse Discussed why it is important to bring someone with you. Yes, Resources discussed (music therapy, Art therapy, pet therapy, etc.) YES Education on chemotherapy (drug, side effects) discussed and that the patient will be receiving a C1D1 call within 7 days of treatment. YES Other topics discussed, interventions needed: Pt's veins assessed at this visit. No need for port at this time. Sergei Carpenter RN [facility] 04-10-2024 History of Present illness Narrative Interactive Account Manager Pre Chemo Patient identified by name and date of . YES Confirmed date and time for chemotherapy ? YES - Printed appointment reminder provided. Other appointments (labs, imaging) discussed? 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 NO Described the infusion room and what to expect. (What to wear, what to bring [iPad, books] amount of time treatment can take, meals and CC options for food) YES Note: NA Discussed whether the patient can eat prior to labs and treatment. YES Who is driving you to and from treatment? Spouse Discussed why it is important to bring someone with you. Yes, Resources discussed (music therapy, Art therapy, pet therapy, etc.) YES Education on chemotherapy (drug, side effects) discussed and that the patient will be receiving a C1D1 call within 7 days of treatment. YES Other topics discussed, interventions needed: Pt's veins assessed at this visit. No need for port at this time. Sergei Carpenter RN ONCOLOGY PATIENT EDUCATION NOTE TOPIC: Chemotherapy, Medications: Gemcitabine & Cisplatin patient and spouse here today for education for treatment of Bladder Cancer Anticipated/Scheduled start date: 04/18/24 READINESS TO LEARN: COGNITIVE ABILITY: Alert and oriented MOTIVATION TO LEARN: Interested FAMILY SUPPORT: High - Very involved in pt care INSTRUCTION PROVIDED TO: Patient and Spouse INSTRUCTION PROVIDED BY: Nurse Coordinator PATIENT LEARNS BEST BY: Multiple Methods FACTORS AFFECTING LEARNING: None PHYSICAL LIMITATIONS AFFECTING LEARNING: None LEARNING RESPONSE METHOD OF INSTRUCTION: Individual instruction Written instruction/Handouts Verbal instruction PATIENT/FAMILY RESPONSE: Verbalizes understanding of: CHEMOTHERAPY-Regimen, toxicity and side effects INFECTION MANAGEMENT-Signs and symptoms of an infection and importance of contacting the physician POST-PROCEDURE INSTRUCTIONS-Correct actions to take to reduce post procedure complications SYMPTOM MANAGEMENT-Correct actions to take to manage symptoms associated with his/her disease/illness WORSENING CONDITION-Signs and symptoms of a worsening condition that warrant a call to the physician Information received as demonstrated by interest and questions FOLLOW UP PLAN: Patient instructed to call with any further issues Contact information given. SUPPLEMENTAL MATERIAL: Written material was provided at this visit with the following information: - Chemotherapy education was provided by a pharmacist NO - Side effect management information was provided/discussed including but not limited to: anemia, appetite changes, arthralgia, bowel habit changes, diet, electrolyte disturbances, fatigue, headache, hearing impairment, infection, kidney toxicity, mouth hygiene, mucositis, myalgia, nausea/vomitting, neutropenia, peripheral neuropathy, rash, shortness of breath, skin changes, taste changes, thrombocytopenia YES - Provided important phone numbers and contacts during and after hours. YES - Provided information on symptoms that require immediate assistance. YES - Provided Chemotherapy when to call handouts YES - Preventing infection. YES - Treatment schedule and confirmation of appointment times. YES - Available support groups. YES - The importance of contraception during the course of chemotherapy YES - Prescriptions for anti-emetics or treatment prep was given: Zofran. YES - A tour was given of the infusion suite with directions for the first day. YES - Neutropenic fever protocol discussed with patient, which included the importance of reporting any fever of 100.4F (38.0C) or greater to the healthcare team as noted on the provided wallet card and/or magnet. YES - [facility] Information. YES - Patient services information. YES Pt did not bring an up to date med list. Unable to reconcile meds. Advised she bring her actual medications with her to her next appointment. Pt verbalizes understanding and agrees. Time Spent: 55 minutes REFERRAL (RECOMMENDATION): Nutrition Sergei Carpenter RN documented in this encounter [facility] 04-10-2024 Note HNO ID: [id number] Author: SERGEI CARPENTER RN Service: ? Author Type: Registered Nurse Type: Progress Notes Filed: 04/10/2024 12:48 Note Text: ONCOLOGY PATIENT EDUCATION NOTE TOPIC: Chemotherapy, Medications: Gemcitabine AND Cisplatin patient and spouse here today for education for treatment of Bladder Cancer Anticipated/Scheduled start date: 04/18/24 READINESS TO LEARN: COGNITIVE ABILITY: Alert and oriented MOTIVATION TO LEARN: Interested FAMILY SUPPORT: High - Very involved in pt care INSTRUCTION PROVIDED TO: Patient and Spouse INSTRUCTION PROVIDED BY: Nurse Coordinator PATIENT LEARNS BEST BY: Multiple Methods FACTORS AFFECTING LEARNING: None PHYSICAL LIMITATIONS AFFECTING LEARNING: None LEARNING RESPONSE METHOD OF INSTRUCTION: Individual instruction Written instruction/Handouts Verbal instruction PATIENT/FAMILY RESPONSE: Verbalizes understanding of: CHEMOTHERAPY-Regimen, toxicity and side effects INFECTION MANAGEMENT-Signs and symptoms of an infection and importance of contacting the physician POST-PROCEDURE INSTRUCTIONS-Correct actions to take to reduce post procedure complications SYMPTOM MANAGEMENT-Correct actions to take to manage symptoms associated with his/her disease/illness WORSENING CONDITION-Signs and symptoms of a worsening condition that warrant a call to the physician Information received as demonstrated by interest and questions FOLLOW UP PLAN: Patient instructed to call with any further issues Contact information given. SUPPLEMENTAL MATERIAL: Written material was provided at this visit with the following information: - Chemotherapy education was provided by a pharmacist NO - Side effect management information was provided/discussed including but not limited to: anemia, appetite changes, arthralgia, bowel habit changes, diet, electrolyte disturbances, fatigue, headache, hearing impairment, infection, kidney toxicity, mouth hygiene, mucositis, myalgia, nausea/vomitting, neutropenia, peripheral neuropathy, rash, shortness of breath, skin changes, taste changes, thrombocytopenia YES - Provided important phone numbers and contacts during and after hours. YES - Provided information on symptoms that require immediate assistance. YES - Provided Chemotherapy when to call handouts YES - Preventing infection. YES - Treatment schedule and confirmation of appointment times. YES - Available support groups. YES - The importance of contraception during the course of chemotherapy YES - Prescriptions for anti-emetics or treatment prep was given: Zofran. YES - A tour was given of the infusion suite with directions for the first day. YES - Neutropenic fever protocol discussed with patient, which included the importance of reporting any fever of 100.4F (38.0C) or greater to the healthcare team as noted on the provided wallet card and/or magnet. YES - [facility] Information. YES - Patient services information. YES Pt did not bring an up to date med list. Unable to reconcile meds. Advised she bring her actual medications with her to her next appointment. Pt verbalizes understanding and agrees. Time Spent: 55 minutes REFERRAL (RECOMMENDATION): Nutrition Sergei Carpenter RN [facility] 04-10-2024 Note Education (TERI) SVETLANA ADRIAN ([id number]) 1955 F Date Time Provider Department 04/10/24 SERGEI CARPENTER Reason for Visit: First Time Treatment Education [1492] Cmt: Gemcitabine AND Cisplatin Primary Visit Diagnosis:Malignant neoplasm of overlapping sites of bladder (HCC) [C67.8] Order(s):CONSULT TO SURVIVORSHIP [416315] Order #: [id number]: 1 FUTURE During your visit today, we recorded the following information about you: Allergies As of Date: 04/10/2024 (No Known Allergies) Date Reviewed: 04/10/2024 Reviewed by: Sergei Carpenter, RN - Fully Assessed Prescriptions as of 04/10/2024 - sodium chloride soluble tablet 1 g Take 1 tablet by mouth once daily for 10 days. - ondansetron (ZOFRAN) 8 mg tablet Take 1 tablet by mouth every 8 hours as needed for nausea/vomiting. - zinc sulfate (ZINC-15 ORAL) Take by mouth. - meloxicam (MOBIC) 7.5 mg tablet Take 7.5 mg by mouth once daily. - metoprolol succinate ER (TOPROL XL) 100 mg Take 100 mg by mouth. - pantoprazole DR (PROTONIX) 40 mg tablet Take 40 mg by mouth once daily. - Pramipexole 0.75 mg tablet Take 0.75 mg by mouth. - guaiFENesin (MUCINEX) 600 mg 12 hr tablet Take 1,200 mg by mouth. - budesonide (PULMICORT) 0.5 mg/2 mL nebulizer solution 0.5 mg. - arformoterol (BROVANA) 15 mcg/2 mL nebulizer solution 15 mcg. - fluticasone (FLONASE) 50 mcg/actuation nasal spray 2 Sprays. - Ipratropium (ATROVENT HFA) 17 mcg/actuation inhaler Inhale 2 Puffs as instructed. - amLODIPine (NORVASC) 5 mg tablet Take 5 mg by mouth. - alendronate (FOSAMAX) 70 mg tablet Take 1 tablet by mouth one time a week. - atorvastatin (LIPITOR) 40 mg tablet Take 40 mg by mouth. - biotin 5 mg capsule Take 5 mg by mouth. - escitalopram oxalate (LEXAPRO) 20 mg tablet Take 20 mg by mouth. - gabapentin (NEURONTIN) 300 mg capsule Take 300 mg by mouth daily at bedtime. - revefenacin (YUPELRI) 175 mcg/3 mL solution for nebulization 175 mcg. - losartan (COZAAR) 100 mg tablet Take 100 mg by mouth. Encounter Status:Closed by SERGEI CARPENTER on 04/10/24 [facility] 04-09-2024 Telephone encounter Note Dagmar is scheduled for chemo ed on and New start chemo tx only on 04-18-24. No Dr. Appt at this time. Dagmar and were notified of these appts. [facility] 04-09-2024 Miscellaneous Notes Dagmar is scheduled for chemo ed on and New start chemo tx only on 04-18-24. No Dr. Appt at this time. Dagmar and were notified of these appts. Working on getting patient scheduled for Chemo ed, New start chemotx and weekly lab and hydration. When does Dr Bailey need to see back for follow up? Pt notified of sodium tabs and verbalizes understanding. Clerical: Please see John's scheduling instructions in the message below. Pt does not wish to schedule port placement at this time. Will discuss more at her ed appointment. Also, pt is not available on 04/16/24. Thanks! Sergei Carpenter, RN Orders in for neoadjuvant therapy - needs salt tabs daily for low sodium. Start gem cis when approved and monitor weekly labs with hydration. Needs education and consent. May also need port. - can assess that at time of education or just get it placed. John: please review and advise Usha Petersen, ALVARO Images from the original note were not included. Patient scheduled for labs on Sunday, 04/07. [address] [facility] documented in this encounter [facility] 04-08-2024 Telephone encounter Note Drop the compazine - can use dex or ativan as needed. [facility] 04-08-2024 Miscellaneous Notes Drop the compazine - can use dex or ativan as needed. Patient reports taking Pramipexole on med list: Drug/Drug Interaction: Prochlorperazine/Pramipexole Title Anti-Parkinson Agents (Dopamine Agonist) / Antipsychotic Agents (First Generation [Typical]) Risk Rating D: Consider therapy modification Summary Antipsychotic Agents (First Generation [Typical]) may diminish the therapeutic effect of Anti-Parkinson Agents (Dopamine Agonist). Severity Moderate Reliability Rating Fair Patient Management The combination of typical antipsychotics and a dopamine agonist should generally be avoided. If antipsychotic therapy is necessary consider using atypical antipsychotics such as clozapine, quetiapine, or ziprasidone at lower initial doses, or a non-dopamine antagonist (eg, pimavanserin). Anti-Parkinson Agents (Dopamine Agonist) Interacting Members Amantadine; Apomorphine; Bromocriptine*; Foslevodopa; Levodopa*; Levodopa (Oral Inhalation); Lisuride; Pergolide; Piribedil; Pramipexole; ROPINIRole; Rotigotine Antipsychotic Agents (First Generation [Typical]) Interacting Members Benperidol; Bromperidol; ChlorproMAZINE*; Chlorprothixene; DroPERidol; Flupentixol; FluPHENAZine; Haloperidol*; Loxapine; Molindone; Perazine; Periciazine; Perphenazine; Pimozide; Pipamperone [INT]; Prochlorperazine; Promazine; Thioridazine; Thiothixene; Trifluoperazine; Zuclopenthixol Exceptions (agents listed are discussed in separate interaction monograph[s] or are non-interacting) Methotrimeprazine Please fallonePamela RPh documented in this encounter [facility] 04-08-2024 Telephone encounter Note Patient reports taking Pramipexole on med list: Drug/Drug Interaction: Prochlorperazine/Pramipexole Title Anti-Parkinson Agents (Dopamine Agonist) / Antipsychotic Agents (First Generation [Typical]) Risk Rating D: Consider therapy modification Summary Antipsychotic Agents (First Generation [Typical]) may diminish the therapeutic effect of Anti-Parkinson Agents (Dopamine Agonist). Severity Moderate Reliability Rating Fair Patient Management The combination of typical antipsychotics and a dopamine agonist should generally be avoided. If antipsychotic therapy is necessary consider using atypical antipsychotics such as clozapine, quetiapine, or ziprasidone at lower initial doses, or a non-dopamine antagonist (eg, pimavanserin). Anti-Parkinson Agents (Dopamine Agonist) Interacting Members Amantadine; Apomorphine; Bromocriptine*; Foslevodopa; Levodopa*; Levodopa (Oral Inhalation); Lisuride; Pergolide; Piribedil; Pramipexole; ROPINIRole; Rotigotine Antipsychotic Agents (First Generation [Typical]) Interacting Members Benperidol; Bromperidol; ChlorproMAZINE*; Chlorprothixene; DroPERidol; Flupentixol; FluPHENAZine; Haloperidol*; Loxapine; Molindone; Perazine; Periciazine; Perphenazine; Pimozide; Pipamperone [INT]; Prochlorperazine; Promazine; Thioridazine; Thiothixene; Trifluoperazine; Zuclopenthixol Exceptions (agents listed are discussed in separate interaction monograph[s] or are non-interacting) Methotrimeprazine Please Pamela romero RPh [facility] 04-08-2024 Telephone encounter Note Pt will be in on for education. Scripts for antiemetics pended. Sergei Carpenter RN [facility] 04-08-2024 Miscellaneous Notes Pt will be in on for education. Scripts for antiemetics pended. Sergei Carpenter RN documented in this encounter [facility] 04-08-2024 Telephone encounter Note Working on getting patient scheduled for Chemo ed, New start chemotx and weekly lab and hydration. When does Dr Bailey need to see back for follow up? [facility] 04-08-2024 Telephone encounter Note Pt notified of sodium tabs and verbalizes understanding. Clerical: Please see John's scheduling instructions in the message below. Pt does not wish to schedule port placement at this time. Will discuss more at her ed appointment. Also, pt is not available on 04/16/24. Thanks! Sergei Carpenter RN T [facility] Work Phone: 04-08-2024 Telephone encounter Note Orders in for neoadjuvant therapy - needs salt tabs daily for low sodium. Start gem cis when approved and monitor weekly labs with hydration. Needs education and consent. May also need port. - can assess that at time of education or just get it placed. [facility] 04-08-2024 Telephone encounter Note John: please review and advise Usha Petersen RN [facility] 04-04-2024 Telephone encounter Note Images from the original note were not included. Patient scheduled for labs on Sunday, 04/07. [address] [facility] 04-04-2024 Instructions Leydi Ledezma - 04/04/2024 4:42 PM EDT Plan for labs next week Triage to call results Anticipate moving forward with neoadjuvant chemotherapy - GemCis documented in this encounter [facility] 04-04-2024 History of Present illness Narrative Images from the original note were not included. NAME: Svetlana Adrian [facility] NO.: [id number] DATE OF SERVICE: April 04, 2024 (Abhyankar) Referring Provider: Lin Dalton MD Consultation requested by Dr. Dalton for an opinion regarding Ms. Svetlana Adrian, and my final recommendations will be communicated back to the requesting physician by way of shared medical record or letter via US mail. Additional Clinicians involved in Svetlana Adrian's care: Alejandro Jeanie DIAGNOSIS: Muscle invasive bladder Ca. ASSESSMENT: 68 year old woman with chronic tobacco use and muscle invasive bladder cancer s/p TURBT with Dr. Dalton mid-January 2024, with no evidence of metastatic disease on staging CT's done in mid-March 2024. Historically, she has preserved kidney function and should be able to tolerate Cisplatin without too much difficulty in the neoadjuvant setting. PLAN: Plan for labs next week Triage to call results Anticipate moving forward with neoadjuvant chemotherapy - GemCis HPI: CASE HISTORY: Reverse Chronological Order 03/28/2024 - CT Chest: Moderate emphysematous changes/COPD. No acute infiltrates or suspicious nodules to suggest metastatic disease. Mild left hydronephrosis incompletely included on today's study 01/30/2024 - CT A/P: No bowel obstruction, ileus, or appreciable inflammatory changes, distal colonic diverticulosis, but no appreciable diverticulitis. Slight wall thickening of urinary bladder. Cystitis? Marked atherosclerotic disease of aorta an branches, but no aneurysm or occlusion 01/23/2024 - XR Urethrogram: Left retrograde pyelogram with no filling defect or mass observed 01/23/2024 - Bladder mass, transurethral resection: Dr. 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 Recommend cystoscopy. No obstructive uropathy. 01/13/2024 - CT A/P: for hematuria Left bladder wall masslike thickening concerning for malignancy. Recommend urology consultation. Colonic diverticulosis Initial Visit, April 04, 2024: Svetlana Adrian presents today for a Hematology and Oncology evaluation. She is joined by her , Royer. She is a 68 year old female who was found to have a bladder mass on imaging in January. TURBT confirmed malignancy with lamina propria and muscularis propria invasion. She has met with Dr. Ware to consider her surgical options. Anticipate moving forward with neoadjuvant chemotherapy with gemcitabine + cisplatin vs. Dickenson / Carbo She denies use of supplemental oxygen although she feels she could use it after walking long distances. FMHx of bladder cancer in her mother and prostate cancer in her brother. REVIEW OF SYSTEMS Per HPI and otherwise negative by full review of organ systems. ECOG PERFORMANCE STATUS: 1- Restricted in physically strenuous activity. Carries out light duty. PHYSICAL EXAMINATION: Vitals: BP 125/77 Pulse 96 Temp (Src) 97.4 (Temporal) Resp 16 Wt 108 lb 7.5 oz (49.2kg) SpO2 93% There is no height or weight on file to calculate BSA. Exam limited to gross visualization where appropriate. Gen.: This is an age-appropriate patient in no acute distress. Head: Appears atraumatic with no visible lesions. Eyes: Pupils equally round and reactive to light, extraocular muscles are intact. Neck: Supple. Respiratory: Appears to be respiring comfortably. Neurologic: Nonfocal to gross visualization. Alert and oriented 3. Psychiatric: No evidence of inappropriate anxiety or depression. Skin: Visible areas of skin without rash, lesions, wounds or petechiae. ALLERGIES: ALLERGIES No Known Allergies MEDICATIONS: zinc sulfate (ZINC-15 ORAL) Take by mouth. meloxicam (MOBIC) 7.5 mg tablet Take 7.5 mg by mouth once daily. metoprolol succinate ER (TOPROL XL) 100 mg Take [address] mg [address]op[address] (PROTONIX) 40 mg tablet Take 40 mg by mouth once daily. Pramipexole 0.75 mg tablet Take 0.75 mg by mouth. guaiFENesin (MUCINEX) 600 mg 12 hr tablet Take 1,200 mg by mouth. budesonide (PULMICORT) 0.5 mg/2 mL nebulizer solution 0.5 mg. arformoterol (BROVANA) 15 mcg/2 mL nebulizer solution 15 mcg. Ipratropium (ATROVENT HFA) 17 mcg/actuation inhaler Inhale 2 Puffs as instructed. amLODIPine (NORVASC) 5 mg tablet Take 5 mg by mouth. alendronate (FOSAMAX) 70 mg tablet Take 1 tablet by mouth one time a week. atorvastatin (LIPITOR) 40 mg tablet Take 40 mg by mouth. escitalopram oxalate (LEXAPRO) 20 mg tablet Take 20 mg by mouth. gabapentin (NEURONTIN) 300 mg capsule Take 300 mg by mouth daily at bedtime. revefenacin (YUPELRI) 175 mcg/3 mL solution for nebulization 175 mcg. losartan (COZAAR) 100 mg tablet Take 100 mg by mouth. fluticasone (FLONASE) 50 mcg/actuation nasal spray 2 Sprays. biotin 5 mg capsule Take 5 mg by mouth. LABORATORY VALUES: No results found for: WBC , RBC , HB , HCT , MCV , MCH , MCHC , RDWCV , PLT , MPV , GLUC , BUN , CREAT , NA , K , CHLOR , CO2 , TPROT , ALB , CA , ALKPHOS , TBILI , AST , ALT , CHOL , TG , BETAMM DIAGNOSIS: (C67.8) Malignant neoplasm of overlapping sites of bladder (HCC) (primary encounter diagnosis) Plan: COMPLETE BLOOD COUNT AND DIFFERENTIAL, COMPREHENSIVE METABOLIC PANEL PAST MEDICAL HISTORY 2023: Bladder cancer (HCC) No date: Bladder mass No date: COPD (chronic obstructive pulmonary disease) (HCC) No date: Former smoker No date: HTN (hypertension) No date: Hyperlipidemia No date: Osteoporosis No date: Restless leg No past surgical history on file. No family history on file. I spent a total of 60 minutes on the date of the service which included preparing to see the patient, vqcp-bc-nyeu patient care, completing clinical documentation, obtaining and/or reviewing separately obtained history, performing a medically appropriate examination, counseling and educating the patient/family/caregiver, ordering medications, tests, or procedures, independently interpreting results (not separately reported), communicating results to the patient/family/caregiver, and care coordination (not separately reported). Lee Dunn MD, CPE Hematology and Oncology Services Provided at: [facility], [place], [place] Scribe Attestation: This note was scribed by Leydi Ledezma on April 04, 2024 under the direction and supervision of Dr. Lee Dunn. I attest that all of the information documented is correct to the best of my knowledge. Provider Attestation: I, Lee Dunn MD, attest that all information documented by the above scribe is correct, and was supervised by me and under my direction. CC: Lin Ware documented in this encounter [facility] 04-04-2024 Note HNO ID: [id number] Author: LEE DUNN MD Service: ? Author Type: Physician Type: Progress Notes Filed: 04/07/2024 07:53 Note Text: NAME: Svetlana Adrian [facility] NO.: [id number] DATE OF SERVICE: April 04, 2024 ([place]) Referring Provider: Lin Dalton MD Consultation requested by Dr. Dalton for an opinion regarding Ms. Svetlana Adrian, and my final recommendations will be communicated back to the requesting physician by way of shared medical record or letter via US mail. Additional Clinicians involved in Svetlana Adrian's care: Alejandro Ware DIAGNOSIS: Muscle invasive bladder Ca. ASSESSMENT: 68 year old woman with chronic tobacco use and muscle invasive bladder cancer s/p TURBT with Dr. Dalton mid-January 2024, with no evidence of metastatic disease on staging CT's done in mid-March 2024. Historically, she has preserved kidney function and should be able to tolerate Cisplatin without too much difficulty in the neoadjuvant setting. PLAN: Plan for labs next week Triage to call results Anticipate moving forward with neoadjuvant chemotherapy - GemCis HPI: CASE HISTORY: Reverse Chronological Order 03/28/2024 - CT Chest: Moderate emphysematous changes/COPD. No acute infiltrates or suspicious nodules to suggest metastatic disease. Mild left hydronephrosis incompletely included on today's study 01/30/2024 - CT A/P: No bowel obstruction, ileus, or appreciable inflammatory changes, distal colonic diverticulosis, but no appreciable diverticulitis. Slight wall thickening of urinary bladder. Cystitis? Marked atherosclerotic disease of aorta an branches, but no aneurysm or occlusion 01/23/2024 - XR Urethrogram: Left retrograde pyelogram with no filling defect or mass observed 01/23/2024 - Bladder mass, transurethral resection: Dr. 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 Recommend cystoscopy. No obstructive uropathy. 01/13/2024 - CT A/P: for hematuria Left bladder wall masslike thickening concerning for malignancy. Recommend urology consultation. Colonic diverticulosis Initial Visit, April 04, 2024: Svetlana Adrian presents today for a Hematology and Oncology evaluation. She is joined by her , Ryoer. She is a 68 year old female who was found to have a bladder mass on imaging in January. TURBT confirmed malignancy with lamina propria and muscularis propria invasion. She has met with Dr. Ware to consider her surgical options. Anticipate moving forward with neoadjuvant chemotherapy with gemcitabine + cisplatin vs. Dickenson / Carbo She denies use of supplemental oxygen although she feels she could use it after walking long distances. FMHx of bladder cancer in her mother and prostate cancer in her brother. REVIEW OF SYSTEMS Per HPI and otherwise negative by full review of organ systems. ECOG PERFORMANCE STATUS: 1- Restricted in physically strenuous activity. Carries out light duty. PHYSICAL EXAMINATION: Vitals: BP 125/77 Pulse 96 Temp (Src) 97.4 (Temporal) Resp 16 Wt 108 lb 7.5 oz (49.2kg) SpO2 93% There is no height or weight on file to calculate BSA. Exam limited to gross visualization where appropriate. Gen.: This is an age-appropriate patient in no acute distress. Head: Appears atraumatic with no visible lesions. Eyes: Pupils equally round and reactive to light, extraocular muscles are intact. Neck: Supple. Respiratory: Appears to be respiring comfortably. Neurologic: Nonfocal to gross visualization. Alert and oriented ?3. Psychiatric: No evidence of inappropriate anxiety or depression. Skin: Visible areas of skin without rash, lesions, wounds or petechiae. ALLERGIES: ALLERGIES No Known Allergies MEDICATIONS: zinc sulfate (ZINC-15 ORAL) Take by mouth. meloxicam (MOBIC) 7.5 mg tablet Take 7.5 mg by mouth once daily. metoprolol succinate ER (TOPROL XL) 100 mg Take [address] mg [address] mouth. [address]op[address] (PROTONIX) 40 mg tablet Take 40 mg by mouth once daily. Pramipexole 0.75 mg tablet Take 0.75 mg by mouth. guaiFENesin (MUCINEX) 600 mg 12 hr tablet Take 1,200 mg by mouth. budesonide (PULMICORT) 0.5 mg/2 mL nebulizer solution 0.5 mg. arformoterol (BROVANA) 15 mcg/2 mL nebulizer solution 15 mcg. Ipratropium (ATROVENT HFA) 17 mcg/actuation inhaler Inhale 2 Puffs as instructed. amLODIPine (NORVASC) 5 mg tablet Take 5 mg by mouth. alendronate (FOSAMAX) 70 mg tablet Take 1 tablet by mouth one time a week. atorvastatin (LIPIT (more content not included)... [facility] 03-19-2024 Note HNO ID: [id number] Author: ALEJANDRO WARE MD Service: ? Author Type: Physician Type: Progress Notes Filed: 03/19/2024 13:21 Note Text[facility] H[facility] AND PHYSICAL EXAM PATIENT INFO: Svetlana Adrian 68 year old REFERRING M.D.: No referring provider defined for this encounter. CHIEF COMPLAINT: Bladder cancer HISTORY:Svetlana Adrian is a 68 year old female presents [...] talked about medical complications, such as cardiac (OK, etc), respiratory (pneumonia, etc), renal (Acute kidney [...] we would ope (more content not included)... [facility] 02-29-2024 Evaluation + Plan note Diagnostic Tests PendingUrine Culture 02/29/24 [facility] 02-29-2024 Hospital Discharge instructions Patient Education 02/29/2024 09:22:07 Bladder Cancer [...] cells. Follow these instructions at home: Take yany-yac-mzirqxo and prescription medicines only as told by [...] is important. Where to find more information [place] [employer] (ACS): cancer.org National Cancer [place] (NCI): cancer.gov Contact a health care provider [...] provider. Document Revised: 07/10/2022 Document Reviewed: 07/10/2022 [employer] Patient Education 2022 [employer]. Follow Up Care 02/01/2024 14:08:57 With:Sha SINGLETARY, KYLE Aguilera, URO Address: When: Unknown [facility] [place] 02-29-2024 Note Patient Education Oncology Bladder Cancer [...] Follow these instructions at home: ? Take xtzi-jiy-etniion and prescription medicines only as told by [...] important. Where to find more information ? [place] (ACS): cancer.org ? National Cancer [place] (NCI): cancer.gov Contact a health care provider [...] discuss any q (more content not included)... [facility] 02-01-2024 Hospital Discharge instructions Patient Education 02/01/2024 14:02:00 Bladder Cancer [...] cells. Follow these instructions at home: Take thgo-obd-tbxszra and prescription medicines only as told by [...] is important. Where to find more information [place] (ACS): cancer.org National Cancer [place] (NCI): cancer.gov Contact a health care provider [...] provider. Document Revised: 07/10/2022 Document Reviewed: 07/10/2022 [employer] Patient Education 2022 [employer]. Follow Up Care 01/25/2024 10:58:20 With:Sha SINGLETARY, KYLE Aguilera, URO Address: When: Unknown [facility] [place] 01-21-2024 Hospital Discharge instructions Patient Education 01/21/2024 08:52:05 EU - [...] appointment for TURBT, possible left ureteral stent [facility] 01-21-2024 Note [id number] [facility] 01-21-2024 Note Cystoscopy ? Voiding after [...] you have a fever over 100 degrees. [facility] 01-17-2024 Hospital Discharge instructions Patient Education 01/17/2024 11:15:35 Transurethral Resection [...] including vitamins, herbs, eye drops, creams, and guut-fcm-ylylbsl medicines. Any problems you or family members [...] provider tells you to take them. Taking uryr-rge-vtobmaj medicines, vitamins, herbs, and supplements. General instructions [...] provider. Document Revised: 08/04/2022 Document Reviewed: 08/04/2022 [employer] Patient Education 2022 [employer] 01/17/2024 10:58:38 Cystoscopy Cystoscopy Cystoscopy is a [...] including vitamins, herbs, eye drops, creams, and tnwr-rbl-fcjkebf medicines. Any problems you or family members [...] provider tells you to take them. Taking enru-wzc-fgsuxwc medicines, vitamins, herbs, and supplements. Tests You [...] Follow these instructions at home: Medicines Take zefs-wvz-epbbzuy and prescription medicines only as told by [...] provider. Document Revised: 04/12/2022 Document Reviewed: 03/11/2021 [employer] Patient Education 2022 [employer]. Follow Up Care 01/14/2024 11:56:48 With:Sha SINGLETARY, KYLE Aguilera, URO Address: When: Unknown [facility] 11-28-2023 History of Present illness Narrative Subjective Svetlana Adrian is a 68 y.o. female Chief Complaint [...] Up In Cardiology 3. Mixed hyperlipidemia 4. Yzrfc-0-yazbewqxbyz deficiency (Multi) 5. Centrilobular emphysema (Multi) 6. Former smoker 7. BMI 25.0-25.9,adult Scribe Attestation By signing my name below, Iesha Fulton LPN , Scribe attest that this documentation has been prepared under the direction and in the presence of Benny Holguin MD. Provider Attestation - Scribe documentation All medical record entries made by the Scribe were at my direction and personally dictated by me. I have reviewed the chart and agree that the record accurately reflects my personal performance of the history, physical exam, discussion and plan. documented in this encounter [facility] Work Phone: 11-28-2023 Instructions Iesha [...] instructions on exercise. documented in this encounter [facility] Work Phone: 09-24-2023 History of Present illness Narrative Associated Problem(s): Current moderate episode [...] 20 mg daily. Subjective Patient ID: Svetlana Adrian is a 68 y.o. female who presents [...] major depressive disorder without prior episode (HCC) ([facility]/HCC) - Primary Patient was seen last appointment [...] 11/05/2023). documented in this encounter [facility] 01-26-2023 History of Present illness Narrative Patient [...] test, lab work and remote echo1.Plan -[facility] 250 DO Work Phone: Chief complaint Narrative - Reported SVETLANA ADRIAN is being seen for a consultation for shortness of breath. [facility] 250 DO Work Phone: Evaluation + Plan note Future Appointments Appointment Date:01/18/2024 10:30:00 AM Scheduled Provider: Location:[facility] Appointment Type:Urology CALL PAT FT Appointment Date:01/21/2024 08:00:00 AM Scheduled Provider: Location:[facility] Appointment Type:Urology FT [facility] Evaluation + Plan note Future Appointments Appointment Date:01/18/2024 10:30:00 AM Scheduled Provider: Location:[facility] Appointment Type:Urology CALL PAT FT Appointment Date:01/21/2024 08:00:00 AM Scheduled Provider: Location:[facility] Appointment Type:Urology FT Diagnostic Tests PendingUrine Cytology ([facility]) 01/17/24 [facility] Evaluation + Plan note Future Appointments Appointment Date:02/29/2024 09:15:00 AM Scheduled Provider:Sha SINGLETARY, Lin Caldera Location:[facility] Appointment Type:URO Office Visit [facility] Evaluation + Plan note [facility] Evaluation note Diagnosis Primary hypertension (CMS/HCC)- Primary Unspecified essential hypertension documented in this encounter [facility]* Diagnosis Current moderate episode of major depressive disorder without prior episode (HCC) (CMS/HCC)- Primary documented in this encounter [facility]* Diagnosis Shortness of breath- Primary Essential hypertension Unspecified essential hypertension Mixed hyperlipidemia Gextc-2-eadcwfhbzgf deficiency (Multi) Noreb-3-rtbifwgrtzz deficiency Centrilobular emphysema (Multi) Former smoker Personal history of tobacco use, presenting hazards to health BMI 25.0-25.9,adult documented in this encounter [facility] Work Phone: Evaluation noteNo assessment information available [facility] Work Phone: Evaluation note* Diagnosis Malignant neoplasm of overlapping sites of bladder (HCC)- Primary Malignant neoplasm of other specified sites of bladder [facility] [place] [facility] Diagnosis Malignant neoplasm of overlapping sites of bladder (HCC)- Primary Malignant neoplasm of other specified sites of bladder [facility] Diagnosis Malignant neoplasm of overlapping sites of bladder (HCC)- Primary Malignant neoplasm of other specified sites of bladder [facility] Diagnosis Malignant neoplasm of overlapping sites of bladder (HCC)- Primary Malignant neoplasm of other specified sites of bladder [facility] Diagnosis Severe protein-calorie malnutrition (HCC)- Primary Other severe protein-calorie malnutrition Malignant neoplasm of overlapping sites of bladder (HCC) Malignant neoplasm of other specified sites of bladder [facility] Diagnosis Malignant neoplasm of overlapping sites of bladder (HCC)- Primary Malignant neoplasm of other specified sites of bladder [facility] Diagnosis Malignant neoplasm of overlapping sites of bladder (HCC)- Primary Malignant neoplasm of other specified sites of bladder [facility] Diagnosis Malignant neoplasm of overlapping sites of bladder (HCC)- Primary Malignant neoplasm of other specified sites of bladder Severe protein-calorie malnutrition (HCC) Other severe protein-calorie malnutrition [facility] Diagnosis Malignant neoplasm of overlapping sites of bladder (HCC)- Primary Malignant neoplasm of other specified sites of bladder [facility] Diagnosis Malignant neoplasm of overlapping sites of bladder (HCC)- Primary Malignant neoplasm of other specified sites of bladder [facility] Diagnosis Malignant neoplasm of overlapping sites of bladder (HCC)- Primary Malignant neoplasm of other specified sites of bladder Severe protein-calorie malnutrition (HCC) Other severe protein-calorie malnutrition [facility] Diagnosis Malignant neoplasm of overlapping sites of bladder (HCC)- Primary Malignant neoplasm of other specified sites of bladder Encounter for antineoplastic chemotherapy Chemotherapy-induced fatigue Chemotherapy-induced neuropathy (HCC) Polyneuropathy due to drugs Chemotherapy-induced nausea Nausea alone [facility] Diagnosis Malignant neoplasm of overlapping sites of bladder (HCC)- Primary Malignant neoplasm of other specified sites of bladder [facility] Diagnosis Malignant neoplasm of overlapping sites of bladder (HCC)- Primary Malignant neoplasm of other specified sites of bladder [facility] Diagnosis Malignant neoplasm of overlapping sites of bladder (HCC)- Primary Malignant neoplasm of other specified sites of bladder Severe protein-calorie malnutrition (HCC) Other severe protein-calorie malnutrition [facility] Diagnosis Malignant neoplasm of overlapping sites of bladder (HCC)- Primary Malignant neoplasm of other specified sites of bladder Chemotherapy-induced fatigue [facility] Diagnosis Malignant neoplasm of overlapping sites of bladder (HCC)- Primary Malignant neoplasm of other specified sites of bladder Severe protein-calorie malnutrition (HCC) Other severe protein-calorie malnutrition [facility] Diagnosis Malignant neoplasm of urinary bladder, unspecified site (HCC)- Primary Malignant neoplasm of overlapping sites of bladder (HCC) Malignant neoplasm of other specified sites of bladder [facility] Diagnosis RLS (restless legs syndrome)- Primary Restless legs syndrome (RLS) COPD, severe (CMS/HCC) Primary hypertension (CMS/HCC) Unspecified essential hypertension Encounter for annual wellness exam in Medicare patient Hypokalemia Hypopotassemia Other hyperlipidemia (CMS/HCC) Current moderate episode of major depressive disorder without prior episode (HCC) (CMS/HCC) RLS (restless legs syndrome)- Primary Restless legs syndrome (RLS) COPD, severe (CMS/HCC) Current moderate episode of major depressive disorder without prior episode (HCC) (CMS/HCC) Primary hypertension (CMS/HCC) Unspecified essential hypertension Current moderate episode of major depressive disorder without prior episode (HCC) (CMS/HCC)- Primary Current moderate episode of major depressive disorder without prior episode (HCC) (CMS/HCC)- Primary Psychophysiological insomnia Persistent disorder of initiating or maintaining sleep Acute cystitis with hematuria- Primary Current moderate episode of major depressive disorder without prior episode (HCC) (CMS/HCC) Psychophysiological insomnia Persistent disorder of initiating or maintaining sleep Hyperlipidemia, unspecified (CMS/HCC) Restless legs syndrome Restless legs syndrome (RLS) Primary hypertension (CMS/HCC) Unspecified essential hypertension RLS (restless legs syndrome) Restless legs syndrome (RLS) Gastroesophageal reflux disease without esophagitis Esophageal reflux Urinary tract infection associated with indwelling urethral catheter, subsequent encounter- Primary RLS (restless legs syndrome)- Primary Restless legs syndrome (RLS) COPD, severe (CMS/HCC) Dyspnea on exertion Other dyspnea and respiratory abnormality Primary hypertension (CMS/HCC) Unspecified essential hypertension Gastroesophageal reflux disease without esophagitis Esophageal reflux Mixed hyperlipidemia (CMS/HCC) Mixed hyperlipidemia Current moderate episode of major depressive disorder without prior episode (HCC) (CMS/HCC) Bladder mass Neoplasm of uncertain behavior of bladder Tobacco abuse Tobacco use disorder COPD, severe (CMS/HCC)- Primary Mixed hyperlipidemia (CMS/HCC) Mixed hyperlipidemia Primary hypertension (CMS/HCC) Unspecified essential hypertension Restless legs syndrome Restless legs syndrome (RLS) documented in this encounter [facility]* Diagnosis Malignant neoplasm of urinary bladder, unspecified site (HCC) Malignant neoplasm of overlapping sites of bladder (HCC) Malignant neoplasm of other specified sites of bladder [facility] Diagnosis RLS (restless legs syndrome)- Primary Restless legs syndrome (RLS) COPD, severe (CMS/HCC) Primary hypertension (CMS/HCC) Unspecified essential hypertension Encounter for annual wellness exam in Medicare patient Hypokalemia Hypopotassemia Other hyperlipidemia (CMS/HCC) Current moderate episode of major depressive disorder without prior episode (HCC) (CMS/HCC) RLS (restless legs syndrome)- Primary Restless legs syndrome (RLS) COPD, severe (CMS/HCC) Current moderate episode of major depressive disorder without prior episode (HCC) (CMS/HCC) Primary hypertension (CMS/HCC) Unspecified essential hypertension Current moderate episode of major depressive disorder without prior episode (HCC) (CMS/HCC)- Primary Current moderate episode of major depressive disorder without prior episode (HCC) (CMS/HCC)- Primary Psychophysiological insomnia Persistent disorder of initiating or maintaining sleep Acute cystitis with hematuria- Primary Current moderate episode of major depressive disorder without prior episode (HCC) (CMS/HCC) Psychophysiological insomnia Persistent disorder of initiating or maintaining sleep Hyperlipidemia, unspecified (CMS/HCC) Restless legs syndrome Restless legs syndrome (RLS) Primary hypertension (CMS/HCC) Unspecified essential hypertension RLS (restless legs syndrome) Restless legs syndrome (RLS) Gastroesophageal reflux disease without esophagitis Esophageal reflux Urinary tract infection associated with indwelling urethral catheter, subsequent encounter- Primary RLS (restless legs syndrome)- Primary Restless legs syndrome (RLS) COPD, severe (CMS/HCC) Dyspnea on exertion Other dyspnea and respiratory abnormality Primary hypertension (CMS/HCC) Unspecified essential hypertension Gastroesophageal reflux disease without esophagitis Esophageal reflux Mixed hyperlipidemia (CMS/HCC) Mixed hyperlipidemia Current moderate episode of major depressive disorder without prior episode (HCC) (CMS/HCC) Bladder mass Neoplasm of uncertain behavior of bladder Tobacco abuse Tobacco use disorder COPD, severe (CMS/HCC)- Primary Mixed hyperlipidemia (CMS/HCC) Mixed hyperlipidemia Primary hypertension (CMS/HCC) Unspecified essential hypertension Restless legs syndrome Restless legs syndrome (RLS) Primary hypertension (CMS/HCC) Unspecified essential hypertension Pain in right hip Gastroesophageal reflux disease without esophagitis Esophageal reflux documented in this encounter [facility] HealthcareEvaluation note* Diagnosis RLS (restless legs syndrome)- Primary Restless legs syndrome (RLS) COPD, severe ([facility]/HCC) Primary hypertension ([facility]) Unspecified essential hypertension Encounter for annual wellness exam in Medicare patient Hypokalemia Hypopotassemia Other hyperlipidemia ([facility]) Current moderate episode of major depressive disorder without prior episode (HCC) ([facility]) RLS (restless legs syndrome)- Primary Restless legs syndrome (RLS) COPD, severe ([facility]/HCC) Current moderate episode of major depressive disorder without prior episode (HCC) ([facility]) Primary hypertension ([facility]) Unspecified essential hypertension Current moderate episode of major depressive disorder without prior episode (HCC) ([facility])- Primary Current moderate episode of major depressive disorder without prior episode (HCC) ([facility])- Primary Psychophysiological insomnia Persistent disorder of initiating or maintaining sleep Acute cystitis with hematuria- Primary Current moderate episode of major depressive disorder without prior episode (HCC) ([facility]) Psychophysiological insomnia Persistent disorder of initiating or maintaining sleep Hyperlipidemia, unspecified ([facility]) Restless legs syndrome Restless legs syndrome (RLS) Primary hypertension ([facility]) Unspecified essential hypertension RLS (restless legs syndrome) Restless legs syndrome (RLS) Gastroesophageal reflux disease without esophagitis Esophageal reflux Urinary tract infection associated with indwelling urethral catheter, subsequent encounter- Primary RLS (restless legs syndrome)- Primary Restless legs syndrome (RLS) COPD, severe ([facility]/HCC) Dyspnea on exertion Other dyspnea and respiratory abnormality Primary hypertension ([facility]) Unspecified essential hypertension Gastroesophageal reflux disease without esophagitis Esophageal reflux Mixed hyperlipidemia ([facility]) Mixed hyperlipidemia Current moderate episode of major depressive disorder without prior episode (HCC) ([facility]) Bladder mass Neoplasm of uncertain behavior of bladder Tobacco abuse Tobacco use disorder COPD, severe ([facility]/HCC)- Primary Mixed hyperlipidemia ([facility]/HCC) Mixed hyperlipidemia Primary hypertension ([facility]) Unspecified essential hypertension Restless legs syndrome Restless legs syndrome (RLS) Dyspnea on exertion- Primary Other dyspnea and respiratory abnormality COPD, severe ([facility]/HCC) COPD exacerbation ([facility]) Obstructive chronic bronchitis with exacerbation documented in this encounter [facility] N[facility]ative* Patient is here for follow- up due to management for recent evaluation for shortness of breath. The p atient is known to have history advanced lung [...] her back in 6 months and follow-up [facility] 250 DO Work Phone: Hospital course Narrative No data available for this section [facility] Hospital Discharge instructions No data available for this section [facility] No data available for this section [facility] Reason for referral (narrative)* Consultation (Routine) - Authorized Specialty Diagnoses / Procedures Referred By Contac t Referred To Contact Cardiology Diagnoses Essential hypertension Procedures Follow Up In Cardiology Benny Holguin MD [address] [place] [address], [address] [address] Benny Holguin MD [address] [facility] 2, [address] [address] Referral ID Status Reason Start Date Expiration Date V isits Requested Visits Authorized [id number] Authorized 11/28/2023 11/27/2024 1 1 [facility] Work Phone: Summary Purpose Family History Unknown Family Member Name Dates Details Family [...] pulmonary disease: Mother(V17.6, Z82.5) Status:Active Advance Directives Advance Directive Response Recorded Date/ Time Advance Directives No September 20, 2017 9:55am Chief Complaint SVETLANA ADRIAN is being seen for results mpl and echo. Reason for Referral Specialty Diagnoses / Procedures Referred By Contac t Referred To Contact CT IMAGING Diagnoses Malignant neoplasm of urinary bladder, unspecified site (HCC) Malignant neoplasm of overlapping sites of bladder (HCC) Procedures CT ABDOMEN W IVCON CT ABDOMEN W/CONTRAST Masha Knight, MEAT SALES AND STORAGE MANAGER.[address] [place] [address] [place] [address] Referral ID Status Reason Start Date Expiration Date Visits Requested Visits Authorized [id number] Authorized Auto-Generat ed Referral 06/20/2024 07/20/2025 1 1 Specialty Diagnoses / Procedures Referred By Contac t Referred To Contact CT IMAGING Diagnoses Malignant neoplasm of urinary bladder, unspecified site (HCC) Procedures CT CHEST W IVCON DIAGNOSTIC COMPUTED TOMOGRAPHY THORAX W/CONTRAST Masha Knight, MEAT SALES AND STORAGE MANAGER.[address] [place] [address] Ct Imaging [facility]95 Referral ID Status Reason Start Date Expiration Date Visits Requested Visits Authorized [id number] Authorized Auto-Generat ed Referral 06/20/2024 07/20/2025 1 1 Specialty Diagnoses / Procedures Referred By Contac t Referred To Contact CT IMAGING Diagnoses Malignant neoplasm of urinary bladder, unspecified site (HCC) Procedures CT UROGRAM WO/W IVCON CT ABD & PELVIS W/WO CONTRST 1+ BODY Masha Lowe, MEAT SALES AND STORAGE MANAGER.BUSINESS ADMINISTRATION PROGRAM CHAIR [address] [place] [address] [place] [address] Referral ID Status Reason Start Date Expiration Date Visits Requested Visits Authorized [id number] Authorized Auto-Generat ed Referral 06/20/2024 07/20/2025 1 1 Referred by: Sha SINGLETARY, Lin Caldera Additional Source Comments INFORMATION SOURCE (unrecogn ized section and content) DATE CREATED AUTHOR 12/23/2022 [facility] DATE CREATED AUTHOR AUTHOR'S ORGANIZ ATION 03/31/2023 [facility] DATE CREATED AUTHOR AUTHOR'S ORGANIZ ATION 03/31/2023 [facility] DATE CREATED AUTHOR AUTHOR'S ORGANIZ ATION 04/13/2023 [facility] DATE CREATED AUTHOR AUTHOR'S ORGANIZ ATION 11/30/2023 [facility] DATE CREATED AUTHOR AUTHOR'S ORGANIZ ATION 02/01/2024 [facility] DATE CREATED AUTHOR AUTHOR'S ORGANIZ ATION 02/05/2024 [facility] DATE CREATED AUTHOR AUTHOR'S ORGANIZ ATION 03/01/2024 Reddy Mccracken [facility] DATE CREATED AUTHOR AUTHOR'S ORGANIZ ATION 03/04/2024 [facility] DATE CREATED AUTHOR AUTHOR'S ORGANIZ ATION 03/21/2024 [facility] DATE CREATED AUTHOR AUTHOR'S ORGANIZ ATION 07/03/2024 [facility] EPIC DATE CREATED AUTHOR AUTHOR'S ORGANIZ ATION 07/13/2024 [facility] Care Teams (unrecognized sec tion and content) Survey Technologist Relationship Specialty Start Date End Date Shaikh Allan MD PCP - General Internal Medicine 06/07/23 Survey Technologist Relationship Specialty Start Date End Date Shaikh Allan MD [address] [place] [address] PCP - General Internal Medicine 09/24/23 Survey Technologist Relationship Specialty Start Date End Date Shaikh Allan MD PCP - General 01/26/23 Team Status: Inactive Member Role Status Dates Lin Dalton MD Attending Provider Active Start : January 23, 2024 End: January 23, 2024 Survey Technologist Relationship Specialty Start Date End Date Lee Dunn MD [address] [address] Physician Hematology/Oncology 04/08/24 Sergei Carpenter, ALVARO [address] [facility] [place] [address] Specialty Interactive Account Manager Hematology/Oncology 04/08/24 Masha Knight, CANDY.BUSINESS ADMINISTRATION PROGRAM CHAIR [address] [place] [address] Nurse Practitioner Hematology/Oncology 04/08/24 Survey Technologist Relationship Specialty Start Date End Date Lee Dunn MD [address] [facility] [place] [address] Physician Hematology/Oncology 04/08/24 Sergei Carpenter, ALVARO [address] [facility] [place] [address] Specialty Interactive Account Manager Hematology/Oncology 04/08/24 Masha Knight, MEAT SALES AND STORAGE MANAGER.BUSINESS ADMINISTRATION PROGRAM CHAIR [address] [facility] [place] [address] Nurse Practitioner Hematology/Oncology 04/08/24 Survey Technologist Relationship Specialty Start Date End Date Lee Dunn MD [address] [place] [address] Physician Hematology/Oncology 04/08/24 Sergei Carpenter, ALVARO [address] [place] [address] Specialty Interactive Account Manager Hematology/Oncology 04/08/24 Masha Knight, MEAT SALES AND STORAGE MANAGER.BUSINESS ADMINISTRATION PROGRAM CHAIR [address] [facility] [place] [address] Nurse Practitioner Hematology/Oncology 04/08/24 Survey Technologist Relationship Specialty Start Date End Date Lee Dunn MD [address] [place] [address] Physician Hematology/Oncology 04/08/24 Sergei Carpenter, ALVARO [address] [place] [address] Specialty Interactive Account Manager Hematology/Oncology 04/08/24 Masha Knight, MEAT SALES AND STORAGE MANAGER.BUSINESS ADMINISTRATION PROGRAM CHAIR [address] [place] [address] Nurse Practitioner Hematology/Oncology 04/08/[address] [place] [address] Registered Dietitian Nutrition 04/17/24 Krystal Paige LSW Painter Maintenance 04/18/24 Survey Technologist Relationship Specialty Start Date End Date Lee Dunn MD [address] [facility] [place] [address] Physician Hematology/Oncology 04/08/24 Sergei Carpenter RN [address] [place] [address] Specialty Interactive Account Manager Hematology/Oncology 04/08/24 Masha Knight, MEAT SALES AND STORAGE MANAGER.BUSINESS ADMINISTRATION PROGRAM CHAIR [address] [facility] [place] [address] Nurse Practitioner Hematology/Oncology 04/08/[address] [facility] [place] [place] [address] Registered Dietitian Nutrition 04/17/24 Krystal Paige LSW Painter Maintenance 04/18/24 Survey Technologist Relationship Specialty Start Date End Date Lee Dunn MD [address] [facility] [place] [address] Physician Hematology/Oncology 04/08/24 Sergei Carpenter RN [address] [facility] [place] [place] [address] Specialty Interactive Account Manager Hematology/Oncology 04/08/24 Masha Knight, MEAT SALES AND STORAGE MANAGER.BUSINESS ADMINISTRATION PROGRAM CHAIR [address] [place] [address] Nurse Practitioner Hematology/Oncology 04/08/[address] [facility] [place] [place] [address] Registered Dietitian Nutrition 04/17/24 Krystal Paige LSW Painter Maintenance 04/18/24 Survey Technologist Relationship Specialty Start Date End Date Lee Dunn MD [address] [place] [address] Physician Hematology/Oncology 04/08/24 Sergei Carpenter RN [address] [facility] [place] [place] [address] Specialty Interactive Account Manager Hematology/Oncology 04/08/24 Masha Knight, MEAT SALES AND STORAGE MANAGER.BUSINESS ADMINISTRATION PROGRAM CHAIR [address] [place] [address] Nurse Practitioner Hematology/Oncology 04/08/[address] [place] [address] Registered Dietitian Nutrition 04/17/24 Krystal Paige, MARRIAGE COUNSELOR MINISTER Painter Maintenance 04/18/24 Survey Technologist Relationship Specialty Start Date End Date Lee Dunn MD [address] [place] [address] Physician Hematology/Oncology 04/08/24 Sergei Carpenter RN [address] [place] [address] Specialty Interactive Account Manager Hematology/Oncology 04/08/24 Masha Knight, MEAT SALES AND STORAGE MANAGER.BUSINESS ADMINISTRATION PROGRAM CHAIR [address] [place] [address] Nurse Practitioner Hematology/Oncology 04/08/[address] [place] [address] Registered Dietitian Nutrition 04/17/24 Krystal Paige, MARRIAGE COUNSELOR MINISTER Painter Maintenance 04/18/24 Survey Technologist Relationship Specialty Start Date End Date Lee Dunn MD [address] [place] [address] Physician Hematology/Oncology 04/08/24 Sergei Carpenter RN [address] [place] [address] Specialty Interactive Account Manager Hematology/Oncology 04/08/24 Masha Knight, MEAT SALES AND STORAGE MANAGER.BUSINESS ADMINISTRATION PROGRAM CHAIR [address] [place] [address] Nurse Practitioner Hematology/Oncology 04/08/[address] [place] [address] Registered Dietitian Nutrition 04/17/24 Krystal Paige, MARRIAGE COUNSELOR MINISTER Painter Maintenance 04/18/24 Survey Technologist Relationship Specialty Start Date End Date Lee Dunn MD [address] [place] [address] Physician Hematology/Oncology 04/08/24 Sergei Carpenter, ALVARO [address] [place] [address] Specialty Interactive Account Manager Hematology/Oncology 04/08/24 Masha Knight, MEAT SALES AND STORAGE MANAGER.BUSINESS ADMINISTRATION PROGRAM CHAIR [address] [place] [address] Nurse Practitioner Hematology/Oncology 04/08/[address] [place] [address] Registered Dietitian Nutrition 04/17/24 Krystal Paige, SPEEDY Painter Maintenance 04/18/24 Survey Technologist Relationship Specialty Start Date End Date Lee Dunn MD [address] [place] [address] Physician Hematology/Oncology 04/08/24 Sergei Carpenter, ALVARO [address] [place] [address] Specialty Interactive Account Manager Hematology/Oncology 04/08/24 Masha Knight, MEAT SALES AND STORAGE MANAGER.BUSINESS ADMINISTRATION PROGRAM CHAIR [address] [place] [address] Nurse Practitioner Hematology/Oncology 04/08/[address] [place] [address] Registered Dietitian Nutrition 04/17/24 Krystal Paige, MARRIAGE COUNSELOR MINISTER Painter Maintenance 04/18/24 Survey Technologist Relationship Specialty Start Date End Date Lee Dunn MD [address] [place] [address] Physician Hematology/Oncology 04/08/24 Sergei Carpenter, ALVARO [address] [place] [address] Specialty Interactive Account Manager Hematology/Oncology 04/08/24 Masha Knight, MEAT SALES AND STORAGE MANAGER.BUSINESS ADMINISTRATION PROGRAM CHAIR [address] [place] [address] Nurse Practitioner Hematology/Oncology 04/08/[address] [place] [address] Registered Dietitian Nutrition 04/17/24 Krystal Paige LSW Painter Maintenance 04/18/24 Survey Technologist Relationship Specialty Start Date End Date Lee Dunn MD [address] [place] [address] Physician Hematology/Oncology 04/08/24 Sergei Carpenter, ALVARO [address] [place] [address] Specialty Interactive Account Manager Hematology/Oncology 04/08/24 Masha Knight, MEAT SALES AND STORAGE MANAGER.BUSINESS ADMINISTRATION PROGRAM CHAIR [address] [facility] [place] [address] Nurse Practitioner Hematology/Oncology 04/08/[address] [place] [address] Registered Dietitian Nutrition 04/17/24 Krystal Paige, MARRIAGE COUNSELOR MINISTER Painter Maintenance 04/18/24 Survey Technologist Relationship Specialty Start Date End Date Lee Dunn MD [address] [place] [address] Physician Hematology/Oncology 04/08/24 Sergei Carpenter, ALVARO [address] [place] [address] Specialty Interactive Account Manager Hematology/Oncology 04/08/24 Masha Knight, MEAT SALES AND STORAGE MANAGER.BUSINESS ADMINISTRATION PROGRAM CHAIR [address] [place] [address] [place] [address] Nurse Practitioner Hematology/Oncology 04/08/[address] [place] [address] [place] [address] Registered Dietitian Nutrition 04/17/24 Krystal Paige, MARRIAGE COUNSELOR MINISTER Painter Maintenance 04/18/24 Survey Technologist Relationship Specialty Start Date End Date Lee Dunn MD [address] [place] [address] Physician Hematology/Oncology 04/08/24 Sergei Carpenter, ALVARO [address] [place] [address] Specialty Interactive Account Manager Hematology/Oncology 04/08/24 Masha Knight, MEAT SALES AND STORAGE MANAGER.BUSINESS ADMINISTRATION PROGRAM CHAIR [address] [place] [address] Nurse Practitioner Hematology/Oncology 04/08/[address] [place] [address] Registered Dietitian Nutrition 04/17/24 Krystal Paige, MARRIAGE COUNSELOR MINISTER Painter Maintenance 04/18/24 Survey Technologist Relationship Specialty Start Date End Date Lee Dunn MD [address] [place] [address] Physician Hematology/Oncology 04/08/24 Sergei Carpenter, ALVARO [address] [place] [address] Specialty Interactive Account Manager Hematology/Oncology 04/08/24 Masha Knight, MEAT SALES AND STORAGE MANAGER.BUSINESS ADMINISTRATION PROGRAM CHAIR [address] [place] [address] Nurse Practitioner Hematology/Oncology 04/08/[address] [place] [address] Registered Dietitian Nutrition 04/17/24 Krystal Paige, MARRIAGE COUNSELOR MINISTER Painter Maintenance 04/18/24 Survey Technologist Relationship Specialty Start Date End Date Lee Dunn MD [address] [place] [address] Physician Hematology/Oncology 04/08/24 Sergei Carpenter, ALVARO [address] [place] [address] Specialty Interactive Account Manager Hematology/Oncology 04/08/24 Masha Knight, MEAT SALES AND STORAGE MANAGER.BUSINESS ADMINISTRATION PROGRAM CHAIR [address] [place] [address] Nurse Practitioner Hematology/Oncology 04/08/[address] [place] [address] Registered Dietitian Nutrition 04/17/24 Krystal Paige LSW Painter Maintenance 04/18/24 Survey Technologist Relationship Specialty Start Date End Date Emerson Pinto MD [address] [place] [address] PCP - General Family Medicine 03/17/24 Rd Ford NP [address] [place] [address] Nurse Practitioner Family Medicine 03/17/24 Survey Technologist Relationship Specialty Start Date End Date Emerson Pinto MD [address] [place] [address] PCP - General Family Medicine 03/17/24 Rd Ford NP [address] [place] [address] Nurse Practitioner Family Medicine 03/17/24 Survey Technologist Relationship Specialty Start Date End Date Lee Dunn MD [address] [place] [address] Physician Hematology/Oncology 04/08/24 Sergei Carpenter, ALVARO [address] [place] [address] Specialty Interactive Account Manager Hematology/Oncology 04/08/24 Masha Knight APRN.BUSINESS ADMINISTRATION PROGRAM CHAIR [address] [place] [address] Nurse Practitioner Hematology/Oncology 04/08/[address] [place] [address] [place], [place] [id number] Registered Dietitian Nutrition 04/17/24 Krystal Paige LSW Painter Maintenance 04/18/24 Survey Technologist Relationship Specialty Start Date End Date Emerson Pinto MD [address] [place] [address] PCP - General Family Medicine 03/17/24 Rd Ford NP [address] [place] [address] Nurse Practitioner Family Medicine 03/17/24 Survey Technologist Relationship Specialty Start Date End Date Emerson Pinto MD [address] [place] [address] PCP - General Family Medicine 03/17/24 Rd Ford NP [address] [address] Nurse Practitioner Family Medicine 03/17/24 Survey Technologist Relationship Specialty Start Date End Date Emerson Pinto MD [address] [place] [address] PCP - General Family Medicine 03/17/24 Rd Ford NP [address] [place] [address] Nurse Practitioner Family Medicine 03/17/24 Reason for Visit (unrecogniz ed section and content) Reason Comments Follow-up Reason Comments Follow-up 6m Reason Comments Care Coordination Antiemetics Reason Comments Appointment Reason Comments Drug/Drug Interaction Prochlorperazine/P ramipexole Reason Comments First Time Treatment Education Gemcitabi ne & Cisplatin Reason Comments Care Coordination Nutrition Referral Reason Comments Nutrition Telephone Specialty Diagnoses / Procedures Referred By Contac t Referred To Contact Diagnoses Malignant neoplasm of overlapping sites of bladder (HCC) Lee Dunn MD [address] [place] [address] [place] [address] Rob Treat Xenia [address] [place] [address] Referral ID Status Reason Start Date Expiration Date V isits Requested Visits Authorized [id number] Authorized 04/07/2024 07/06/2024 99 99 Reason Comments Care Coordination C1D1 Post Treatment Call Reason Comments Lab Orders Reason Comments Nutrition Telephone No answer Reason Comments Bladder Cancer Reason Comments Treatment Planning Referral ID Status Reason Start Date Expiration Date V isits Requested Visits Authorized [id number] Authorized 04/25/2024 07/24/2024 99 99 Reason Comments Bladder Cancer OTV Reason Comments Orders Reason Comments COPD Reason Comments Radiology CT Special[facility] Diagnoses / [facility] IM[facility]ING Diagnoses Malignant neoplasm of urinary bladder, unspecified site (HCC) Procedures CT CHEST W IVCON DIAGNOSTIC COMPUTED TOMOGRAPHY THORAX W/CONTRAST Masha Knight, CANDY.BUSINESS ADMINISTRATION PROGRAM CHAIR [address] [place] [address] [place] [address] [place] [id number] Referral ID Status Reason Start Date Expiration Date V isits Requested Visits Authorized [id number] Closed Auto-Generate d Referral 06/20/2024 07/20/2025 1 1 Reason Onset Date Comments Med Refill 07/15/2024 Reason Comments Cough COPD Goals (unrecognized section and content) Goals may be documented in a n alternate section Source Comments (unrecognize d section and content) In the event this informatio n is protected by the Federal Confidentiality of Alcohol and Drug Abuse Patient Records regulations: The Federal rules restrict any use of the information to criminally investigate or prosecute any alcohol or drug abuse patient.[facility] HospitalIn the event this information is protected by the Federal Confidentiality of Alcohol and Drug Abuse Patient Records regulations: The Federal rules restrict any use of the information to criminally investigate or prosecute any alcohol or drug abuse patient.[facility] HospitalIn the event this information is protected by the Federal Confidentiality of Alcohol and Drug Abuse Patient Records regulations: The Federal rules restrict any use of the information to criminally investigate or prosecute any alcohol or drug abuse patient.[facility] HospitalIn the event this information is protected by the Federal Confidentiality of Alcohol and Drug Abuse Patient Records regulations: The Federal rules restrict any use of the information to criminally investigate or prosecute any alcohol or drug abuse patient.[facility] HospitalIn the event this information is protected by the Federal Confidentiality of Alcohol and Drug Abuse Patient Records regulations: The Federal rules restrict any use of the information to criminally investigate or prosecute any alcohol or drug abuse patient.[facility] HospitalIn the event this information is protected by the Federal Confidentiality of Alcohol and Drug Abuse Patient Records regulations: The Federal rules restrict any use of the information to criminally investigate or prosecute any alcohol or drug abuse patient.[facility] HospitalIn the event this information is protected by the Federal Confidentiality of Alcohol and Drug Abuse Patient Records regulations: The Federal rules restrict any use of the information to criminally investigate or prosecute any alcohol or drug abuse patient.[facility] HospitalIn the event this information is protected by the Federal Confidentiality of Alcohol and Drug Abuse Patient Records regulations: The Federal rules restrict any use of the information to criminally investigate or prosecute any alcohol or drug abuse patient.[facility] HospitalIn the event this information is protected by the Federal Confidentiality of Alcohol and Drug Abuse Patient Records regulations: The Federal rules restrict any use of the information to criminally investigate or prosecute any alcohol or drug abuse patient.[facility] HospitalIn the event this information is protected by the Federal Confidentiality of Alcohol and Drug Abuse Patient Records regulations: The Federal rules restrict any use of the information to criminally investigate or prosecute any alcohol or drug abuse patient.[facility] HospitalIn the event this information is protected by the Federal Confidentiality of Alcohol and Drug Abuse Patient Records regulations: The Federal rules restrict any use of the information to criminally investigate or prosecute any alcohol or drug abuse patient.[facility] HospitalIn the event this information is protected by the Federal Confidentiality of Alcohol and Drug Abuse Patient Records regulations: The Federal rules restrict any use of the information to criminally investigate or prosecute any alcohol or drug abuse patient.[facility] HospitalIn the event this information is protected by the Federal Confidentiality of Alcohol and Drug Abuse Patient Records regulations: The Federal rules restrict any use of the information to criminally investigate or prosecute any alcohol or drug abuse patient.[facility] HospitalIn the event this information is protected by the Federal Confidentiality of Alcohol and Drug Abuse Patient Records regulations: The Federal rules restrict any use of the information to criminally investigate or prosecute any alcohol or drug abuse patient.[facility] HospitalIn the event this information is protected by the Federal Confidentiality of Alcohol and Drug Abuse Patient Records regulations: The Federal rules restrict any use of the information to criminally investigate or prosecute any alcohol or drug abuse patient.[facility] HospitalIn the event this information is protected by the Federal Confidentiality of Alcohol and Drug Abuse Patient Records regulations: The Federal rules restrict any use of the information to criminally investigate or prosecute any alcohol or drug abuse patient.[facility] HospitalIn the event this information is protected by the Federal Confidentiality of Alcohol and Drug Abuse Patient Records regulations: The Federal rules restrict any use of the information to criminally investigate or prosecute any alcohol or drug abuse patient.[facility] HospitalIn the event this information is protected by the Federal Confidentiality of Alcohol and Drug Abuse Patient Records regulations: The Federal rules restrict any use of the information to criminally investigate or prosecute any alcohol or drug abuse patient.[facility] HospitalIn the event this information is protected by the Federal Confidentiality of Alcohol and Drug Abuse Patient Records regulations: The Federal rules restrict any use of the information to criminally investigate or prosecute any alcohol or drug abuse patient.[facility] HospitalIn the event this information is protected by the Federal Confidentiality of Alcohol and Drug Abuse Patient Records regulations: The Federal rules restrict any use of the information to criminally investigate or prosecute any alcohol or drug abuse patient.[facility] HospitalIn the event this information is protected by the Federal Confidentiality of Alcohol and Drug Abuse Patient Records regulations: The Federal rules restrict any use of the information to criminally investigate or prosecute any alcohol or drug abuse patient.[facility] HospitalIn the event this information is protected by the Federal Confidentiality of Alcohol and Drug Abuse Patient Records regulations: The Federal rules restrict any use of the information to criminally investigate or prosecute any alcohol or drug abuse patient.[facility] HospitalIn the event this information is protected by the Federal Confidentiality of Alcohol and Drug Abuse Patient Records regulations: The Federal rules restrict any use of the information to criminally investigate or prosecute any alcohol or drug abuse patient.[facility] HospitalIn the event this information is protected by the Federal Confidentiality of Alcohol and Drug Abuse Patient Records regulations: The Federal rules restrict any use of the information to criminally investigate or prosecute any alcohol or drug abuse patient.[facility] HospitalIn the event this information is protected by the Federal Confidentiality of Alcohol and Drug Abuse Patient Records regulations: The Federal rules restrict any use of the information to criminally investigate or prosecute any alcohol or drug abuse patient.[facility] HospitalIn the event this information is protected by the Federal Confidentiality of Alcohol and Drug Abuse Patient Records regulations: The Federal rules restrict any use of the information to criminally investigate or prosecute any alcohol or drug abuse patient.[facility] HospitalIn the event this information is protected by the Federal Confidentiality of Alcohol and Drug Abuse Patient Records regulations: The Federal rules restrict any use of the information to criminally investigate or prosecute any alcohol or drug abuse patient.[facility] HospitalIn the event this information is protected by the Federal Confidentiality of Alcohol and Drug Abuse Patient Records regulations: The Federal rules restrict any use of the information to criminally investigate or prosecute any alcohol or drug abuse patient.[facility] HospitalIn the event this information is protected by the Federal Confidentiality of Alcohol and Drug Abuse Patient Records regulations: The Federal rules restrict any use of the information to criminally investigate or prosecute any alcohol or drug abuse patient.[facility] HospitalIn the event this information is protected by the Federal Confidentiality of Alcohol and Drug Abuse Patient Records regulations: The Federal rules restrict any use of the information to criminally investigate or prosecute any alcohol or drug abuse patient.[facility] HospitalIn the event this information is protected by the Federal Confidentiality of Alcohol and Drug Abuse Patient Records regulations: The Federal rules restrict any use of the information to criminally investigate or prosecute any alcohol or drug abuse patient.[facility] HospitalIn the event this information is protected by the Federal Confidentiality of Alcohol and Drug Abuse Patient Records regulations: The Federal rules restrict any use of the information to criminally investigate or prosecute any alcohol or drug abuse patient.[facility] HospitalIn the event this information is protected by the Federal Confidentiality of Alcohol and Drug Abuse Patient Records regulations: The Federal rules restrict any use of the information to criminally investigate or prosecute any alcohol or drug abuse patient.[facility] HospitalIn the event this information is protected by the Federal Confidentiality of Alcohol and Drug Abuse Patient Records regulations: The Federal rules restrict any use of the information to criminally investigate or prosecute any alcohol or drug abuse patient.[facility] HospitalIn the event this information is protected by the Federal Confidentiality of Alcohol and Drug Abuse Patient Records regulations: The Federal rules restrict any use of the information to criminally investigate or prosecute any alcohol or drug abuse patient.[facility] FOR RECORDS PERTAINING TO PATIENTS WHO ARE [...] BE BASED ON THE PRIMARY CLINICAL RECORDS. [facility] [place] [facility]. provides no warranty or guarantee of the accuracy or completeness of information in this document.
--- NOTE | 2024-07-16 20:22 | PC.NURSE ---
Monitor accidentally cleared per staff.
--- NOTE | 2024-07-16 20:23 | PC.NURSE ---
Report called to Daphne JOHN and bedside report given as well. Pt up to room per stretcher with telemetry in place.
--- NOTE | 2024-07-16 20:32 | PC.NURSE ---
pt uses a walker. She does have a scooter and wheelchair for when she goes longer distances and is feeling weak.
[2024-07-16] MEDS: LEVOFLOXACIN IN DEXTROSE 5 % 750 MG/150 ML PREMIX 100 MG IV (20:56)
[2024-07-17] VITALS (22 sets, daily range): BP systolic 112–154; BP diastolic 58–88; PULSE 82–131; TEMP 36.6–36.9; O2SAT 84–99; BMI 18.6
[2024-07-17] MEDS: TEMAZEPAM 15 MG CAPSULE PO ×2 (00:08→21:21)
--- OUTSIDE RECORDS SUMMARY | 2024-07-17 06:14 | XMS_ITS | CCD ---
Author Organization [facility] CliniSywy Care Team Providers Care Battalion Chief Name Role Phone FAWWAD, TSE H Admitting [...] raul Allan MD, Tse Primary Care Provider [phone] Shaikh Allan MD Primary Care Provider [...] Care Provider Unavailmare Dunn MD, Lee Unavailable [phone] Shonda RN, Sergei Unavailable [phone] Masha Knight APRN.CNP Unavailable [phone], Katia Unavailable Krystal La Unavailable Unavailable Emerson Pinto MD Primary Care Provider [phone] [address] [employer], Rd Unavailable FAWWARADHA EsquivelIKH Attending Unavailable FAWWAD, TSE Attending [...] Drug Allergy Nausea (finding) [facility] (2 sources) Codeine; 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: [CODEINE] Drug Allergy 7 [facility] (18 sources) Codeine; 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: [Codeine Derivatives] Drug Allergy 9 Nausea Only, GI intolerance, Other, Nausea/vomiting , Nausea (finding) [facility] (1 source) Codeine Drug Allergy 8 [facility] Medications Current Medications Medication Drug [...] 0 02/01/2024 07/01/2024 Discontinued (Med list cleanup) [id number] 200 actuat albuterol 0.09 mg/actuat metered dose [...] 2 times per week after for maintenance., [facility], 150, cm, 02/29/24 9:07:00 EDT, Height/Length [...] 2 times per week after for maintenance., [employer] [facility] #72, 150, cm, 02/29/24 9:07:00 EDT, [...] puff(s) by in halation twice daily Ipratropium [place] (Atrovent Hfa) 17 mcg/actuation HFA aerosol inhaler [...] dose, On Sun04/25/24 at 1200, EXP: 04/26/2024 [id number] RT Hazardous Chemotherapy Drug: Use appropriate PPE. 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] Onset: 11-14-2023 [...] [Mass/Vol] 0.76 mg/dL 0.58 - 0.96 mg/dL [facility] GFR/1.73 sq M.predicted among non-blacks MDRD (S/P/Bld) [Vol rate/Area] 84 mL/min/{1.73_m2} - PINF [facility] Comment on above: Estimated Glomerular Filtration [...] Interpretation and review of laboratory results Normal [facility] CREATININE BLDon 07-11-2024 Creatinine [Mass/Vol] 0.76 mg/dL Normal 0.58-0.96 [facility] Comment on above: Order Comment: Speci men Type: BLOOD SPECIMENOrdering Facility: [facility] Address: [address] [place] [address] Performed By: #### C RET1 ####[facility] LABCLIA [id number] [place] [address] Creatinine and Glomerular filtration rate.predicted panel (S/P/Bld) 84 mL/min/1.73m??? Normal >=60 [facility] Comment on above: Order Comment: Speci men Type: BLOOD SPECIMENOrdering Facility: [facility] Address: [address] [place] [address] Result Comment: Tosin mated Glomerular Filtration Rate [...] actual GFR. Performed By: #### C RET1 ####[facility] LABCLIA [id number] [place] [address] CT CHEST [address] IVCON[address] CT CHEST W IVCON * * *Final Report* * * DATE OF EXAM: Jul 11 2024 10:41AM [facility] 0539 - CT CHEST W IVCON / [...] any questions regarding this interpretation, please call [phone]. If you are unable to reach us at the number above, please feel free to contact [facility] at [phone]. [id number] N Normal [facility] CT Chest W contrast [place] IMPRESSION: [...] any questions regarding this interpretation, please call [phone]. If you are unable to reach us at the number above, please feel free to contact [facility] at [phone]. DIVISION OF RADIOLOGY * * *Final Report* * * DATE OF EXAM: Jul 11 2024 10:41AM [facility] 0539 - CT CHEST W IVCON / [...] No additional findings. DIVISION OF RADIOLOGY [facility]24 * * *Final Report* * * DATE OF EXAM: Jul 11 2024 10:41AM [facility] 0539 - CT CHEST W IVCON / [...] any questions regarding this interpretation, please call [phone]. If you are unable to reach us at the number above, please feel free to contact [facility] at [phone]. [facility] CT Kidney WO and W contrast [...] any questions regarding this interpretation, please call [phone]. If you are unable to reach us at the number above, please feel free to contact [facility] at [phone]. DIVISION OF RADIOLOGY * * *Final Report* * * DATE OF EXAM: Jul 11 2024 10:41AM [facility] 0560 - CT UROGRAM WO/W IVCON / [...] No additional findings. DIVISION OF RADIOLOGY Provider, [facility] - 07/11/2024 * * *Final Report* * * DATE OF EXAM: Jul 11 2024 10:41AM [facility] 0560 - CT UROGRAM WO/W IVCON / [...] any questions regarding this interpretation, please call [phone]. If you are unable to reach us at the number above, please feel free to contact [facility] at [phone]. [facility] CT Kidney WO and W contrast IVOrdered By: Ccf Provider on 07-11-[address] [facility] [address] UROGRAM WO/W IVCONon 11-2 CT UROGRAM WO/W IVCON * * *Final Report* * * DATE OF EXAM: Jul 11 2024 10:41AM [facility] 0560 - CT UROGRAM WO/W IVCON / [...] any questions regarding this interpretation, please call [phone]. If you are unable to reach us at the number above, please feel free to contact [facility] at [phone]. [id number] N Normal [facility] No Panel Informationon 07-11 Radiology Study observation (narrative) [facility] Seth 06-23-2024 CNPN Telephone (HEMTSA) SVETLANA ADRIAN ([id number]) 1955 F Date Time Provider Department 06/23/24 MASHA KNIGHT During your visit today, we recorded the following information about you: Lori Hobbs RN 06/23/2024 7:54 AM Signed Please sign pended Cre for upcoming CT-pt on nephrotoxic chemo Thank You! 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 LABCLIA [id number] [place] [address] Basophils/100 WBC (Bld) 0.4 % Normal [facility] Comment on above: Order Comment: Speci men Type: BLOOD SPECIMENOrdering Facility: [facility] Address: [address] [place] [address] Performed By: #### 5 7021-8 ####[facility] LABCLIA [id number] [place] [address] Differential cell count method Nom (Bld) Auto Normal [facility] Comment on above: Order Comment: Speci men Type: BLOOD SPECIMENOrdering Facility: [facility] Address: [address] [place] [address] Performed By: #### 5 7021-8 ####[facility] LABCLIA [id number] [place] [address] Eosinophils (Bld) [#/Vol] 0.09 10*3/uL Normal <0.46 [facility] Comment on above: Order Comment: Speci men Type: BLOOD SPECIMENOrdering Facility: [facility] Address: [address] [place] [address] Performed By: #### 5 7021-8 ####[facility] LABCLIA [id number] [place] [address] Eosinophils/100 WBC (Bld) 1.8 % Normal [facility] Comment on above: Order Comment: Speci men Type: BLOOD SPECIMENOrdering Facility: [facility] Address: [address] [place] [address] Performed By: #### 5 7021-8 ####[facility] LABCLIA [id number] [place] [address] Erythrocyte distribution width (RBC) [Ratio] 22.7 % High 11.5-15.0 [facility] Comment on above: Order Comment: Speci men Type: BLOOD SPECIMENOrdering Facility: [facility] Address: [address] [place] [address] Performed By: #### 5 7021-8 ####[facility] LABCLIA [id number] [place] [address] Hematocrit (Bld) [Volume fraction] 33.2 % Low 36.0-46.0 [facility] Comment on above: Order Comment: Speci men Type: BLOOD SPECIMENOrdering Facility: [facility] Address: [address] [place] [address] Performed By: #### 5 7021-8 ####[facility] LABCLIA [id number] [place] [address] Hemoglobin (Bld) [Mass/Vol] 11.2 g/dL Low 11.5-15.5 [facility] Comment on above: Order Comment: Speci men Type: BLOOD SPECIMENOrdering Facility: [facility] Address: [address] [place] [address] Performed By: #### 5 7021-8 ####[facility] LABCLIA [id number] [place] [address] Immature granulocytes (Bld) [#/Vol] 10*3/uL Normal <0.10 [facility] Comment on above: Order Comment: Speci men Type: BLOOD SPECIMENOrdering Facility: [facility] Address: [address] [place] [address] Performed By: #### 5 7021-8 ####[facility] LABCLIA [id number] [place] [address] Immature granulocytes/100 WBC (Bld) 0.4 % Normal [facility] Comment on above: Order Comment: Speci men Type: BLOOD SPECIMENOrdering Facility: [facility] Address: [address] [place] [address] Performed By: #### 5 7021-8 ####[facility] LABCLIA [id number] [place] [address] Lymphocytes (Bld) [#/Vol] 0.59 10*3/uL Low 1.00-4.00 [facility] Comment on above: Order Comment: Speci men Type: BLOOD SPECIMENOrdering Facility: [facility] Address: [address] [place] [address] Performed By: #### 5 7021-8 ####[facility] LABCLIA [id number] [place] [address] Lymphocytes/100 WBC (Bld) 11.8 % Normal [facility] Comment on above: Order Comment: Speci men Type: BLOOD SPECIMENOrdering Facility: [facility] Address: [address] [place] [address] Performed By: #### 5 7021-8 ####[facility] LABCLIA [id number] [place] [address] MCH (RBC) [Entitic mass] 30.4 pg Normal 26.0-34.0 [facility] Comment on above: Order Comment: Speci men Type: BLOOD SPECIMENOrdering Facility: [facility] Address: [address] [place] [address] Performed By: #### 5 7021-8 ####[facility] LABCLIA [id number] [place] [address] MCHC (RBC) [Mass/Vol] 33.7 g/dL Normal 30.5-36.0 [facility] Comment on above: Order Comment: Speci men Type: BLOOD SPECIMENOrdering Facility: [facility] Address: [address] [place] [address] Performed By: #### 5 7021-8 ####[facility] LABCLIA [id number] [place] [address] MCV (RBC) [Entitic vol] 90.2 fL Normal 80.0-100.0 [facility] Comment on above: Order Comment: Speci men Type: BLOOD SPECIMENOrdering Facility: [facility] Address: [address] [place] [address] Performed By: #### 5 7021-8 ####[facility] LABIA [id number] [place] [address] Monocytes (Bld) [#/Vol] 1.05 10*3/uL High <0.87 [facility] Comment on above: Order Comment: Speci men Type: BLOOD SPECIMENOrdering Facility: [facility] Address: [address] [place] [address] Performed By: #### 5 7021-8 ####[facility] LABCLIA [id number] [place] [address] Monocytes/100 WBC (Bld) 21.0 % Normal [facility] Comment on above: Order Comment: Speci men Type: BLOOD SPECIMENOrdering Facility: [facility] Address: [address] [place] [address] Performed By: #### 5 7021-8 ####[facility] LABCLIA [id number] [place] [address] Neutrophils (Bld) [#/Vol] 3.24 10*3/uL Normal 1.45-7.50 [facility] Comment on above: Order Comment: Speci men Type: BLOOD SPECIMENOrdering Facility: [facility] Address: [address] [place] [address] Performed By: #### 5 7021-8 ####[facility] LABCLIA [id number] [place] [address] Neutrophils/100 WBC (Bld) 64.6 % Normal [facility] Comment on above: Order Comment: Speci men Type: BLOOD SPECIMENOrdering Facility: [facility] Address: [address] [place] [address] Performed By: #### 5 7021-8 ####[facility] LABCLIA [id number] [place] [address] Nucleated RBC (Bld) [#/Vol] 10*3/uL Normal <0.01 [facility] Comment on above: Order Comment: Speci men Type: BLOOD SPECIMENOrdering Facility: [facility] Address: [address] [place] [address] Performed By: #### 5 7021-8 ####[facility] LABCLIA [id number] [place] [address] Nucleated RBC/100 WBC (Bld) [Ratio] 0.0 /100 WBC Normal [facility] Comment on above: Order Comment: Speci men Type: BLOOD SPECIMENOrdering Facility: [facility] Address: [address] [place] [address] Performed By: #### 5 7021-8 ####[facility] LABCLIA [id number] [place] [address] Platelet mean volume (Bld) [Entitic vol] 9.5 fL Normal 9.0-12.7 [facility] Comment on above: Order Comment: Speci men Type: BLOOD SPECIMENOrdering Facility: [facility] Address: [address] [place] [address] Performed By: #### 5 7021-8 ####[facility] LABCLIA [id number] [place] [address] Platelets (Bld) [#/Vol] 327 10*3/uL Normal 150-400 [facility] Comment on above: Order Comment: Speci men Type: BLOOD SPECIMENOrdering Facility: [facility] Address: [address] [place] [address] Performed By: #### 5 7021-8 ####[facility] LABIA [id number] [place] [address] RBC (Bld) [#/Vol] 3.68 10*6/uL Low 3.90-5.20 [facility] Comment on above: Order Comment: Speci men Type: BLOOD SPECIMENOrdering Facility: [facility] Address: [address] [place] [address] Performed By: #### 5 7021-8 ####[facility] LABIA [id number] [place] [address] WBC (Bld) [#/Vol] 5.01 10*3/uL Normal 3.70-11.00 [facility] Comment on above: Order Comment: Speci men Type: BLOOD SPECIMENOrdering Facility: [facility] Address: [address] [place] [address] Performed By: #### 5 7021-8 ####[facility] LABIA [id number] [place] [address] CNOVSPon 06-20-2024 CNOVS Visit (SP) Office (HEMASA) SVETLANA ADRIAN ([id number]) 1955 F Date Time Provider Department 06/20/24 10:00 AM MASHA KNIGHT During your visit today, we recorded the following information about you: Temperature Pulse Respiration Blood pressure 97.3 degrees 71/minute 18/minute 94/53 Weight Height 42.6 kg 1.507 m Masha Knight APRN.KAIAWHINA KURA KAUPAPA MAORI 06/20/2024 4:10 PM Signed NAME: Svetlana Adrian CLINIC NO.: [id number] DATE OF SERVICE: June 20, 2024 (Caleb) [...] after her surgery. Will continue to keep director of social services involved for patient needs. Patient will contact [...] Bladder mass, transurethral resection: Dr. Dalton at [facility] - High-grade urothelial carcinoma with lamina propria [...] increased fatigue since starting chemotherapy. 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 Weight is down a few pounds since last visit. Having some peripheral neuropathy in bilateral fingers and toes. Comes and goes, not getting any worse. Patient is taking Gabapentin. Encouraged to take vitamin B-complex and Alp (more content not included)... [facility] Telephone (NCCAP) SVETLANA ADRIAN ([id number]) 1955 F Date Time Provider Department 06/20/24 [...] Date Reviewed: 06/20/2024 Reviewed by: Masha Knight APRN.KAIAWHINA KURA KAUP[place]A MAORI - Fully Assessed Reason for Visit: Appointment [...] Status:Closed by RD LEBLANC on 06/24/24 Normal [facility] Comprehensive metabolic 2000 panelon 06-20-2024 Albumin [Mass/Vol] 4.4 g/dL Normal 3.9-4.9 [facility] Comment on above: Order Comment: Speci men Type: BLOOD SPECIMENOrdering Facility: [facility] Address: [address] [address] Performed By: #### 2 4323-8 ####[facility] LABCLIA [id number] [place] [address] ALP [Catalytic activity/Vol] 68 U/L Normal 34-123 [facility] Comment on above: Order Comment: Speci men Type: BLOOD SPECIMENOrdering Facility: [facility] Address: [address] [id number] Performed By: #### 2 4323-8 ####[facility] LABCLIA [id number] [place] [address] ALT [Catalytic activity/Vol] 33 U/L Normal 7-38 [facility] Comment on above: Order Comment: Speci men Type: BLOOD SPECIMENOrdering Facility: [facility] Address: [address] [place] [address] Performed By: #### 2 4323-8 ####[facility] LABCLIA [id number] [place] [address] Anion gap [Moles/Vol] 12 mmol/L Normal 8-15 [facility] Comment on above: Order Comment: Speci men Type: BLOOD SPECIMENOrdering Facility: [facility] Address: [address] [place] [address] Performed By: #### 2 4323-8 ####[facility] LABCLIA [id number] [place] [address] AST [Catalytic activity/Vol] 31 U/L Normal 13-35 [facility] Comment on above: Order Comment: Speci men Type: BLOOD SPECIMENOrdering Facility: [facility] Address: [address] [place] [address] Performed By: #### 2 4323-8 ####[facility] LABCLIA [id number] [place] [address] Bilirubin [Mass/Vol] 0.3 mg/dL Normal 0.2-1.3 [facility] Comment on above: Order Comment: Speci men Type: BLOOD SPECIMENOrdering Facility: [facility] Address: [address] [place] [address] Performed By: #### 2 4323-8 ####[facility] LABCLIA [id number] [place] [address] Calcium [Mass/Vol] 9.7 mg/dL Normal 8.5-10.2 [facility] Comment on above: Order Comment: Speci men Type: BLOOD SPECIMENOrdering Facility: [facility] Address: [address] [place] [address] Performed By: #### 2 4323-8 ####[facility] LABCLIA [id number] [place] [address] Chloride [Moles/Vol] 95 mmol/L Low 98-107 [facility] Comment on above: Order Comment: Speci men Type: BLOOD SPECIMENOrdering Facility: [facility] Address: [address] [place] [address] Performed By: #### 2 4323-8 ####[facility] LABCLIA [id number] [place] [address] CO2 [Moles/Vol] 26 mmol/L Normal 22-30 [facility] Comment on above: Order Comment: Speci men Type: BLOOD SPECIMENOrdering Facility: [facility] Address: [address] [place] [address] Performed By: #### 2 4323-8 ####[facility] LABCLIA [id number] [place] [address] Creatinine [Mass/Vol] 0.71 mg/dL Normal 0.58-0.96 [facility] Comment on above: Order Comment: Speci men Type: BLOOD SPECIMENOrdering Facility: [facility] Address: [address] [place] [address] Performed By: #### 2 4323-8 ####[facility] LABCLIA [id number] [place] [address] Creatinine and Glomerular filtration rate.predicted panel (S/P/Bld) 91 mL/min/1.73m??? Normal >=60 [facility] Comment on above: Order Comment: Speci men Type: BLOOD SPECIMENOrdering Facility: [facility] Address: [address] [place] [address] Result Comment: Tosin mated Glomerular Filtration Rate [...] actual GFR. Performed By: #### 2 4323-8 ####[facility] LABCLIA [id number] [place] [address] Glucose [Mass/Vol] 113 mg/dL High 74-99 [facility] Comment on above: Order Comment: Speci men Type: BLOOD SPECIMENOrdering Facility: [facility] Address: [address] [place], [place] [address] Result Comment: The [place] [employer] Association (ADA) provides guidance for cutoff [...] Standards of Medical Care in Diabetes 2016, [place] [employer]. Diabetes Care. 2016.39(Suppl 1). Performed By: #### 2 4323-8 ####[facility] LABCLIA [id number] [place] [address] Potassium [Moles/Vol] 3.9 mmol/L Normal 3.7-5.1 [facility] Comment on above: Order Comment: Speci men Type: BLOOD SPECIMENOrdering Facility: [facility] Address: [address] [place] [address] Performed By: #### 2 4323-8 ####[facility] LABCLIA [id number] [place] [address] Protein [Mass/Vol] 6.7 g/dL Normal 6.3-8.0 [facility] Comment on above: Order Comment: Speci men Type: BLOOD SPECIMENOrdering Facility: [facility] Address: [facility] [place] [address] Performed By: #### 2 4323-8 ####[facility] LABCLIA [id number] [place] [address] Sodium [Moles/Vol] 133 mmol/L Low 136-144 [facility] Comment on above: Order Comment: Speci men Type: BLOOD SPECIMENOrdering Facility: [facility] Address: [address] [place] [address] Performed By: #### 2 4323-8 ####[facility] LABCLIA [id number] [place] [address] Urea nitrogen [Mass/Vol] 8 mg/dL Normal 7-21 [facility] Comment on above: Order Comment: Speci men Type: BLOOD SPECIMENOrdering Facility: [facility] Address: [address] [place] [address] Performed By: #### 2 4323-8 ####[facility] LABCLIA [id number] [place] [address] CBC W Auto Differential pane l (Bld)on 06-06-2024 Basophils (Bld) [#/Vol] 0.04 10*3/uL [facility] Basophils/100 WBC (Bld) 1.6 % [facility] Differential cell count method Nom (Bld) Auto [facility] Eosinophils (Bld) [#/Vol] 0.03 10*3/uL [facility] Eosinophils/100 WBC (Bld) 1.2 % [facility] Erythrocyte distribution width (RBC) [Ratio] 19.1 % High 11.5 - 15.0 % [facility] Hematocrit (Bld) [Volume fraction] 33.1 % Low 36.0 - 46.0 % [facility] Hemoglobin (Bld) [Mass/Vol] 11.2 g/dL Low 11.5 - 15.5 g/dL [facility] Immature granulocytes (Bld) [#/Vol] 0.08 10*3/uL [facility] Immature granulocytes/100 WBC (Bld) 3.2 % [facility] Interpretation and review of laboratory results Abnormal [facility] Lymphocytes (Bld) [#/Vol] 0.88 10*3/uL Low [facility] Lymphocytes/100 WBC (Bld) 35.2 % [facility] MCH (RBC) [Entitic mass] 29.6 pg 26.0 - 34.0 pg [facility] MCHC (RBC) [Mass/Vol] 33.8 g/dL 30.5 - 36.0 g/dL [facility] MCV (RBC) [Entitic vol] 87.6 fL 80.0 - 100.0 fL [facility] Monocytes (Bld) [#/Vol] 0.36 10*3/uL [facility] Monocytes/100 WBC (Bld) 14.4 % [facility] Neutrophils (Bld) [#/Vol] 1.11 10*3/uL Low [facility] Neutrophils/100 WBC (Bld) 44.4 % [facility] Nucleated RBC (Bld) [#/Vol] [facility] Nucleated RBC/100 WBC (Bld) [Ratio] 0.0 % /100 WBC [facility] Platelet mean volume (Bld) [Entitic vol] 9.2 fL 9.0 - 12.7 fL [facility] Platelets (Bld) [#/Vol] 433 10*3/uL High [facility] RBC (Bld) [#/Vol] 3.78 10*6/uL Low 3.90 - 5.2 0 m/uL [facility] WBC (Bld) [#/Vol] 2.50 10*3/uL Low [facility] Basophils (Bld) [#/Vol] 0.04 10*3/uL Normal <0.11 [facility] Comment on above: Order Comment: Speci men Type: BLOOD SPECIMENOrdering Facility: [facility] Address: [address] [place] [address] Performed By: #### 5 7021-8 ####[facility] LABCLIA [id number] [place] [address] Basophils/100 WBC (Bld) 1.6 % Normal [facility] Comment on above: Order Comment: Speci men Type: BLOOD SPECIMENOrdering Facility: [facility] Address: [address] [place] [address] Performed By: #### 5 7021-8 ####[facility] LABCLIA [id number] [place] [address] Differential cell count method Nom (Bld) Auto Normal [facility] Comment on above: Order Comment: Speci men Type: BLOOD SPECIMENOrdering Facility: [facility] Address: [address] [place] [address] Performed By: #### 5 7021-8 ####[facility] LABCLIA [id number] [place] [address] Eosinophils (Bld) [#/Vol] 0.03 10*3/uL Normal <0.46 [facility] Comment on above: Order Comment: Speci men Type: BLOOD SPECIMENOrdering Facility: [facility] Address: [address] [place] [address] Performed By: #### 5 7021-8 ####[facility] LABCLIA [id number] [place] [address] Eosinophils/100 WBC (Bld) 1.2 % Normal [facility] Comment on above: Order Comment: Speci men Type: BLOOD SPECIMENOrdering Facility: [facility] Address: [address] [place] [address] Performed By: #### 5 7021-8 ####[facility] LABCLIA [id number] [place] [address] Erythrocyte distribution width (RBC) [Ratio] 19.1 % High 11.5-15.0 [facility] Comment on above: Order Comment: Speci men Type: BLOOD SPECIMENOrdering Facility: [facility] Address: [address] [place] [address] Performed By: #### 5 7021-8 ####[facility] LABCLIA [id number] [place] [address] Hematocrit (Bld) [Volume fraction] 33.1 % Low 36.0-46.0 [facility] Comment on above: Order Comment: Speci men Type: BLOOD SPECIMENOrdering Facility: [facility] Address: [address] [place] [address] Performed By: #### 5 7021-8 ####[facility] LABCLIA [id number] [place] [address] Hemoglobin (Bld) [Mass/Vol] 11.2 g/dL Low 11.5-15.5 [facility] Comment on above: Order Comment: Speci men Type: BLOOD SPECIMENOrdering Facility: [facility] Address: [address] [place] [address] Performed By: #### 5 7021-8 ####[facility] LABCLIA [id number] [place] [address] Immature granulocytes (Bld) [#/Vol] 0.08 10*3/uL Normal <0.10 [facility] Comment on above: Order Comment: Speci men Type: BLOOD SPECIMENOrdering Facility: [facility] Address: [address] [place] [address] Performed By: #### 5 7021-8 ####[facility] LABCLIA [id number] [place] [address] Immature granulocytes/100 WBC (Bld) 3.2 % Normal [facility] Comment on above: Order Comment: Speci men Type: BLOOD SPECIMENOrdering Facility: [facility] Address: [address] [place] [address] Performed By: #### 5 7021-8 ####[facility] LABCLIA [id number] [place] [address] Lymphocytes (Bld) [#/Vol] 0.88 10*3/uL Low 1.00-4.00 [facility] Comment on above: Order Comment: Speci men Type: BLOOD SPECIMENOrdering Facility: [facility] Address: [address] [place] [address] Performed By: #### 5 7021-8 ####[facility] LABCLIA [id number] [place] [address] Lymphocytes/100 WBC (Bld) 35.2 % Normal [facility] Comment on above: Order Comment: Speci men Type: BLOOD SPECIMENOrdering Facility: [facility] Address: [address] [place] [address] Performed By: #### 5 7021-8 ####[facility] LABCLIA [id number] [place] [address] MCH (RBC) [Entitic mass] 29.6 pg Normal 26.0-34.0 [facility] Comment on above: Order Comment: Speci men Type: BLOOD SPECIMENOrdering Facility: [facility] Address: [address] [place] [address] Performed By: #### 5 7021-8 ####[facility] LABIA [id number] [place] [address] MCHC (RBC) [Mass/Vol] 33.8 g/dL Normal 30.5-36.0 [facility] Comment on above: Order Comment: Speci men Type: BLOOD SPECIMENOrdering Facility: [facility] Address: [address] [place] [address] Performed By: #### 5 7021-8 ####[facility] LABCLIA [id number] [place] [address] MCV (RBC) [Entitic vol] 87.6 fL Normal 80.0-100.0 [facility] Comment on above: Order Comment: Speci men Type: BLOOD SPECIMENOrdering Facility: [facility] Address: [address] [place] [address] Performed By: #### 5 7021-8 ####[facility] LABIA [id number] [place] [address] Monocytes (Bld) [#/Vol] 0.36 10*3/uL Normal <0.87 [facility] Comment on above: Order Comment: Speci men Type: BLOOD SPECIMENOrdering Facility: [facility] Address: [address] [place] [address] Performed By: #### 5 7021-8 ####[facility] LABCLIA [id number] [place] [address] Monocytes/100 WBC (Bld) 14.4 % Normal [facility] Comment on above: Order Comment: Speci men Type: BLOOD SPECIMENOrdering Facility: [facility] Address: [address] [place] [address] Performed By: #### 5 7021-8 ####[facility] LABCLIA [id number] [place] [address] Neutrophils (Bld) [#/Vol] 1.11 10*3/uL Low 1.45-7.50 [facility] Comment on above: Order Comment: Speci men Type: BLOOD SPECIMENOrdering Facility: [facility] Address: [address] [place] [address] Performed By: #### 5 7021-8 ####[facility] LABCLIA [id number] [place] [address] Neutrophils/100 WBC (Bld) 44.4 % Normal [facility] Comment on above: Order Comment: Speci men Type: BLOOD SPECIMENOrdering Facility: [facility] Address: [address] [place] [address] Performed By: #### 5 7021-8 ####[facility] LABCLIA [id number] [place] [address] Nucleated RBC (Bld) [#/Vol] 10*3/uL Normal <0.01 [facility] Comment on above: Order Comment: Speci men Type: BLOOD SPECIMENOrdering Facility: [facility] Address: [address] [place] [address] Performed By: #### 5 7021-8 ####[facility] LABCLIA [id number] [place] [address] Nucleated RBC/100 WBC (Bld) [Ratio] 0.0 /100 WBC Normal [facility] Comment on above: Order Comment: Speci men Type: BLOOD SPECIMENOrdering Facility: [facility] Address: [address] [place] [address] Performed By: #### 5 7021-8 ####[facility] LABCLIA [id number] [place] [address] Platelet mean volume (Bld) [Entitic vol] 9.2 fL Normal 9.0-12.7 [facility] Comment on above: Order Comment: Speci men Type: BLOOD SPECIMENOrdering Facility: [facility] Address: [address] [place] [address] Performed By: #### 5 7021-8 ####[facility] LABIA [id number] [place] [address] Platelets (Bld) [#/Vol] 433 10*3/uL High 150-400 [facility] Comment on above: Order Comment: Speci men Type: BLOOD SPECIMENOrdering Facility: [facility] Address: [address] [place] [address] Performed By: #### 5 7021-8 ####[facility] LABIA [id number] [place] [address] RBC (Bld) [#/Vol] 3.78 10*6/uL Low 3.90-5.20 [facility] Comment on above: Order Comment: Speci men Type: BLOOD SPECIMENOrdering Facility: [facility] Address: [address] [place] [address] Performed By: #### 5 7021-8 ####[facility] LABIA [id number] [place] [address] WBC (Bld) [#/Vol] 2.50 10*3/uL Low 3.70-11.00 [facility] Comment on above: Order Comment: Speci men Type: BLOOD SPECIMENOrdering Facility: [facility] Address: [address] [place] [id number] Performed By: #### 5 7021-8 ####[facility] LABCLIA [id number] [place] [address] Comprehensive metabolic 2000 panelon 06-06-2024 Albumin [Mass/Vol] 3.9 g/dL 3.9 - 4.9 g/dL [facility] ALP [Catalytic activity/Vol] 62 U/L 34 - 123 U/L [facility] Comment on above: Corrected result: Pr eviously reported as 64 U/L on 06/06/2024 at 11:29 AM EDT. ALT [Catalytic activity/Vol] 48 U/L High 7 - 38 U/L [facility] Comment on above: Corrected result: Pr eviously reported as 41 U/L on 06/06/2024 at 11:29 AM EDT. Anion gap [Moles/Vol] 18 mmol/L High 8 - 15 mmol/L [facility] AST [Catalytic activity/Vol] 44 U/L High 13 - 35 U/L [facility] Comment on above: Corrected result: Pr eviously reported as 32 U/L on 06/06/2024 at 11:29 AM EDT. Bilirubin [Mass/Vol] 0.2 mg/dL 0.2 - 1 .3 mg/dL [facility] Calcium [Mass/Vol] 9.9 mg/dL 8.5 - 10. 2 mg/dL [facility] Comment on above: Corrected result: Pr eviously reported as 9.4 mg/dL on 06/06/2024 at 11:29 AM EDT. Chloride [Moles/Vol] 95 mmol/L Low 98 - 10 7 mmol/L [facility] CO2 [Moles/Vol] 23 mmol/L 22 - 30 mmol/L [facility] Comment on above: Corrected result: Pr eviously reported as 28 mmol/L on 06/06/2024 at 11:29 AM EDT. Creatinine [Mass/Vol] 0.64 mg/dL 0.58 - 0.96 mg/dL [facility] Comment on above: Corrected result: Pr eviously reported as 0.66 mg/dL on 06/06/2024 at 11:29 AM EDT. GFR/1.73 sq M.predicted among non-blacks MDRD (S/P/Bld) [Vol rate/Area] 95 mL/min/{1.73_m2} - PINF [facility] Comment on above: Estimated Glomerular Filtration [...] 136 mg/dL High 74 - 99 mg/dL [facility] Comment on above: The [place] Di[employer] Association (ADA) provides guidance for [...] Standards of Medical Care in Diabetes 2016, [place] [employer]. Diabetes Care. 2016.39(Suppl 1). Corrected result: Previously reported as 145 mg/dL on 06/06/2024 at 11:29 AM EDT. Interpretation and review of laboratory results Abnormal [facility] Potassium [Moles/Vol] 3.7 mmol/L 3.7 - 5.1 mmol/L [facility] Protein [Mass/Vol] 6.1 g/dL Low 6.3 - 8.0 g/dL [facility] Comment on above: Corrected result: Pr eviously reported as 6.0 g/dL on 06/06/2024 at 11:29 AM EDT. Sodium [Moles/Vol] 136 mmol/L 136 - 144 mmol/L [facility] Urea nitrogen [Mass/Vol] 10 mg/dL 7 - 21 mg/dL [facility] Albumin [Mass/Vol] 3.9 g/dL Normal 3.9-4.9 [facility] Comment on above: Order Comment: Speci men Type: BLOOD SPECIMENOrdering Facility: [facility] Address: [address] [place] [address] Performed By: #### 2 4323-8 ####[facility] LABCLIA [id number] [place] [address] [place] ALP [Catalytic activity/Vol] 62 U/L Normal 34-123 [facility] Comment on above: Order Comment: Speci men Type: BLOOD SPECIMENOrdering Facility: [facility] Address: [address] [place] [address] Result Comment: Magdi ected result: Previously reported as 64 U/L on 06/06/2024 at 11:29 AM EDT. Performed By: #### 2 4323-8 ####[facility] LABCLIA [id number] [place] [address] [place] ALT [Catalytic activity/Vol] 48 U/L High 7-38 [facility] Comment on above: Order Comment: Speci men Type: BLOOD SPECIMENOrdering Facility: [facility] Address: [address] [place] [address] Result Comment: Magdi ected result: Previously reported as 41 U/L on 06/06/2024 at 11:29 AM EDT. Performed By: #### 2 4323-8 ####[facility] LABCLIA [id number] [place] [address] [place] Anion gap [Moles/Vol] 18 mmol/L High 8-15 [facility] Comment on above: Order Comment: Speci men Type: BLOOD SPECIMENOrdering Facility: [facility] Address: [address] [place] [address] Performed By: #### 2 4323-8 ####[facility] LABCLIA [id number] [place] [address] [place] AST [Catalytic activity/Vol] 44 U/L High 13-35 [facility] Comment on above: Order Comment: Speci men Type: BLOOD SPECIMENOrdering Facility: [facility] Address: [address] [place] [address] Result Comment: Magdi ected result: Previously reported as 32 U/L on 06/06/2024 at 11:29 AM EDT. Performed By: #### 2 4323-8 ####[facility] LABCLIA [id number] [place] [address] [place] Bilirubin [Mass/Vol] 0.2 mg/dL Normal 0.2-1.3 [facility] Comment on above: Order Comment: Speci men Type: BLOOD SPECIMENOrdering Facility: [facility] Address: [address] [place] [address] Performed By: #### 2 4323-8 ####[facility] LABCLIA [id number] [place] [address] [place] Calcium [Mass/Vol] 9.9 mg/dL Normal 8.5-10.2 [facility] Comment on above: Order Comment: Speci men Type: BLOOD SPECIMENOrdering Facility: [facility] Address: [address] [place] [address] Result Comment: Magdi ected result: Previously reported as 9.4 mg/dL on 06/06/2024 at 11:29 AM EDT. Performed By: #### 2 4323-8 ####[facility] LABCLIA [id number] [place] [address] [place] Chloride [Moles/Vol] 95 mmol/L Low 98-107 [facility] Comment on above: Order Comment: Speci men Type: BLOOD SPECIMENOrdering Facility: [facility] Address: [address] [place] [address] Performed By: #### 2 4323-8 ####[facility] LABCLIA [id number] [place] [address] [place] CO2 [Moles/Vol] 23 mmol/L Normal 22-30 [facility] Comment on above: Order Comment: Speci men Type: BLOOD SPECIMENOrdering Facility: [facility] Address: [address] [place] [address] Result Comment: Magdi ected result: Previously reported as 28 mmol/L on 06/06/2024 at 11:29 AM EDT. Performed By: #### 2 4323-8 ####[facility] LABCLIA [id number] [place] [address] [place] Creatinine [Mass/Vol] 0.64 mg/dL Normal 0.58-0.96 [facility] Comment on above: Order Comment: Speci men Type: BLOOD SPECIMENOrdering Facility: [facility] Address: [address] [place] [address] Result Comment: Magdi ected result: Previously reported as 0.66 mg/dL on 06/06/2024 at 11:29 AM EDT. Performed By: #### 2 4323-8 ####[facility] LABCLIA [id number] [address] [place] [facility] Creatinine and Glomerular filtration rate.predicted panel (S/P/Bld) 95 mL/min/1.73m??? Normal >=60 [facility] Comment on above: Order Comment: Speci men Type: BLOOD SPECIMENOrdering Facility: [facility] Address: [address] [place] [address] Result Comment: Tosin mated Glomerular Filtration Rate [...] actual GFR. Performed By: #### 2 4323-8 ####[facility] LABCLIA [id number] [facility] [place] [address] [place] Glucose [Mass/Vol] 136 mg/dL High 74-99 [facility] Comment on above: Order Comment: Speci men Type: BLOOD SPECIMENOrdering Facility: [facility] Address: [address] [place] [address] Result Comment: The [place] Diabetes Association (ADA) provides guidance for cutoff [...] Standards of Medical Care in Diabetes 2016, [place] [employer]. Diabetes Care. 2016.39(Suppl 1). Corrected result: Previously reported as 145 mg/dL on 06/06/2024 at 11:29 AM EDT. Performed By: #### 2 4323-8 ####[facility] LABCLIA [id number] [place] [address] [place] Potassium [Moles/Vol] 3.7 mmol/L Normal 3.7-5.1 [facility] Comment on above: Order Comment: Shantel walters Type: BLOOD SPECIMENOrdering Facility: [facility] Address: [address] [place] [address] Performed By: #### 2 4323-8 ####[facility] LABCLIA [id number] [place] [address] [place] Protein [Mass/Vol] 6.1 g/dL Low 6.3-8.0 [facility] Comment on above: Order Comment: Shantel walters Type: BLOOD SPECIMENOrdering Facility: [facility] Address: [address] [place] [address] Result Comment: Magdi ected result: Previously reported as 6.0 g/dL on 06/06/2024 at 11:29 AM EDT. Performed By: #### 2 4323-8 ####[facility] LABCLIA [id number] [place] [address] [place] Sodium [Moles/Vol] 136 mmol/L Normal 136-144 [facility] Comment on above: Order Comment: Speci men Type: BLOOD SPECIMENOrdering Facility: [facility] Address: [address] [place] [address] Performed By: #### 2 4323-8 ####[facility] LABCLIA [id number] [place] [address] [place] Urea nitrogen [Mass/Vol] 10 mg/dL Normal 7-21 [facility] Comment on above: Order Comment: Speci men Type: BLOOD SPECIMENOrdering Facility: [facility] Address: [address] [place] [address] Performed By: #### 2 4323-8 ####[facility] LABCLIA [id number] [place] [address] [place] CBC W Auto Differential pane l (Bld)on 05-30-2024 Basophils (Bld) [#/Vol] 10*3/uL Normal <0.11 [facility] Comment on above: Order Comment: Speci men Type: BLOOD SPECIMENOrdering Facility: [facility] Address: [address] [place] [address] Performed By: #### 5 7021-8 ####[facility] LABCLIA [id number] [place] [address] Basophils/100 WBC (Bld) 0.5 % Normal [facility] Comment on above: Order Comment: Speci men Type: BLOOD SPECIMENOrdering Facility: [facility] Address: [address] [place] [address] Performed By: #### 5 7021-8 ####[facility] LABCLIA [id number] [place] [address] Differential cell count method Nom (Bld) Auto Normal [facility] Comment on above: Order Comment: Speci men Type: BLOOD SPECIMENOrdering Facility: [facility] Address: [address] [place] [address] Performed By: #### 5 7021-8 ####[facility] LABCLIA [id number] [place] [address] Eosinophils (Bld) [#/Vol] 0.13 10*3/uL Normal <0.46 [facility] Comment on above: Order Comment: Speci men Type: BLOOD SPECIMENOrdering Facility: [facility] Address: [address] [place] [address] Performed By: #### 5 7021-8 ####[facility] LABCLIA [id number] [place] [address] Eosinophils/100 WBC (Bld) 3.4 % Normal [facility] Comment on above: Order Comment: Speci men Type: BLOOD SPECIMENOrdering Facility: [facility] Address: [address] [place] [address] Performed By: #### 5 7021-8 ####[facility] LABCLIA [id number] [place] [address] Erythrocyte distribution width (RBC) [Ratio] 19.3 % High 11.5-15.0 [facility] Comment on above: Order Comment: Speci men Type: BLOOD SPECIMENOrdering Facility: [facility] Address: [address] [place] [address] Performed By: #### 5 7021-8 ####[facility] LABCLIA [id number] [place] [address] Hematocrit (Bld) [Volume fraction] 34.9 % Low 36.0-46.0 [facility] Comment on above: Order Comment: Speci men Type: BLOOD SPECIMENOrdering Facility: [facility] Address: [address] [place] [address] Performed By: #### 5 7021-8 ####[facility] LABCLIA [id number] [place] [address] Hemoglobin (Bld) [Mass/Vol] 11.5 g/dL Normal 11.5-15.5 [facility] Comment on above: Order Comment: Speci men Type: BLOOD SPECIMENOrdering Facility: [facility] Address: [address] [place] [address] Performed By: #### 5 7021-8 ####[facility] LABCLIA [id number] [place] [address] Immature granulocytes (Bld) [#/Vol] 0.03 10*3/uL Normal <0.10 [facility] Comment on above: Order Comment: Speci men Type: BLOOD SPECIMENOrdering Facility: [facility] Address: [address] [place] [address] Performed By: #### 5 7021-8 ####[facility] LABCLIA [id number] [place] [address] Immature granulocytes/100 WBC (Bld) 0.8 % Normal [facility] Comment on above: Order Comment: Speci men Type: BLOOD SPECIMENOrdering Facility: [facility] Address: [address] [place] [address] Performed By: #### 5 7021-8 ####[facility] LABCLIA [id number] [place] [address] Lymphocytes (Bld) [#/Vol] 0.75 10*3/uL Low 1.00-4.00 [facility] Comment on above: Order Comment: Speci men Type: BLOOD SPECIMENOrdering Facility: [facility] Address: [address] [place] [address] Performed By: #### 5 7021-8 ####[facility] LABCLIA [id number] [place] [address] Lymphocytes/100 WBC (Bld) 19.5 % Normal [facility] Comment on above: Order Comment: Speci men Type: BLOOD SPECIMENOrdering Facility: [facility] Address: [address] [place] [address] Performed By: #### 5 7021-8 ####[facility] LABCLIA [id number] [place] [address] MCH (RBC) [Entitic mass] 28.8 pg Normal 26.0-34.0 [facility] Comment on above: Order Comment: Speci men Type: BLOOD SPECIMENOrdering Facility: [facility] Address: [address] [place] [address] Performed By: #### 5 7021-8 ####[facility] LABCLIA [id number] [place] [address] MCHC (RBC) [Mass/Vol] 33.0 g/dL Normal 30.5-36.0 [facility] Comment on above: Order Comment: Speci men Type: BLOOD SPECIMENOrdering Facility: [facility] Address: [address] [place] [address] Performed By: #### 5 7021-8 ####[facility] LABCLIA [id number] [place] [address] MCV (RBC) [Entitic vol] 87.5 fL Normal 80.0-100.0 [facility] Comment on above: Order Comment: Speci men Type: BLOOD SPECIMENOrdering Facility: [facility] Address: [address] [place] [address] Performed By: #### 5 7021-8 ####[facility] LABCLIA [id number] [place] [address] Monocytes (Bld) [#/Vol] 0.66 10*3/uL Normal <0.87 [facility] Comment on above: Order Comment: Speci men Type: BLOOD SPECIMENOrdering Facility: [facility] Address: [address] [place] [address] Performed By: #### 5 7021-8 ####[facility] LABCLIA [id number] [place] [address] Monocytes/100 WBC (Bld) 17.1 % Normal [facility] Comment on above: Order Comment: Speci men Type: BLOOD SPECIMENOrdering Facility: [facility] Address: [address] [place] [address] Performed By: #### 5 7021-8 ####[facility] LABCLIA [id number] [place] [address] Neutrophils (Bld) [#/Vol] 2.26 10*3/uL Normal 1.45-7.50 [facility] Comment on above: Order Comment: Speci men Type: BLOOD SPECIMENOrdering Facility: [facility] Address: [address] [place] [address] Performed By: #### 5 7021-8 ####[facility] LABCLIA [id number] [place] [address] Neutrophils/100 WBC (Bld) 58.7 % Normal [facility] Comment on above: Order Comment: Speci men Type: BLOOD SPECIMENOrdering Facility: [facility] Address: [address] [place] [address] Performed By: #### 5 7021-8 ####[facility] LABCLIA [id number] [place] [address] Nucleated RBC (Bld) [#/Vol] 10*3/uL Normal <0.01 [facility] Comment on above: Order Comment: Speci men Type: BLOOD SPECIMENOrdering Facility: [facility] Address: [address] [place] [address] Performed By: #### 5 7021-8 ####[facility] LABCLIA [id number] [place] [address] Nucleated RBC/100 WBC (Bld) [Ratio] 0.0 /100 WBC Normal [facility] Comment on above: Order Comment: Speci men Type: BLOOD SPECIMENOrdering Facility: [facility] Address: [address] [place] [address] Performed By: #### 5 7021-8 ####[facility] LABCLIA [id number] [place] [address] Platelet mean volume (Bld) [Entitic vol] 9.4 fL Normal 9.0-12.7 [facility] Comment on above: Order Comment: Speci men Type: BLOOD SPECIMENOrdering Facility: [facility] Address: [address] [place] [address] Performed By: #### 5 7021-8 ####[facility] LABIA [id number] [place] [address] Platelets (Bld) [#/Vol] 282 10*3/uL Normal 150-400 [facility] Comment on above: Order Comment: Speci men Type: BLOOD SPECIMENOrdering Facility: [facility] Address: [address] [place] [address] Performed By: #### 5 7021-8 ####[facility] [id number] [place] [address] RBC (Bld) [#/Vol] 3.99 10*6/uL Normal 3.90-5.20 [facility] Comment on above: Order Comment: Speci men Type: BLOOD SPECIMENOrdering Facility: [facility] Address: [address] [place] [address] Performed By: #### 5 7021-8 ####[facility] LABIA [id number] [place] [address] WBC (Bld) [#/Vol] 3.85 10*3/uL Normal 3.70-11.00 [facility] Comment on above: Order Comment: Speci men Type: BLOOD SPECIMENOrdering Facility: [facility] Address: [address] [place] [address] Performed By: #### 5 7021-8 ####[facility] LABIA [id number] [place] [address] CNOVSPon 05-30-2024 CNOVSP Visit (SP) Office (HEMASA) SVETLANA ADRIAN ([id number]) 1955 F Date Time Provider Department 05/30/24 10:00 AM LEE DUNN During your visit today, we recorded the following information about you: Temperature Pulse Respiration Blood pressure 97.3 degrees 59/minute 18/minute 116/63 Weight Height 44.4 kg 1.507 m Lee Dunn MD 05/30/2024 4:57 PM Signed NAME: Svetlana Adrian CLINIC NO.: [id number] DATE OF SERVICE: May 30, 2024 (casperjuana) [...] Bladder mass, transurethral resection: Dr. Dalton at [facility] - High-grade urothelial carcinoma with lamina propria [...] increased fatigue since starting chemotherapy. 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 Weight is down [...] neoadjuvant chemotherapy with gemcitabine + cisplatin vs. Lincoln / Carbo She denies use of supplemental oxygen although she feels she could use it after walking long distances. FMHx of bladder cancer in her mother and prostate cancer in her brother. - REVIEW OF SYSTEMS Per HPI and otherwise negative by full review of organ systems. (more content not included)... Normal [facility] Comprehensive metabolic 2000 panelon 05-30-2024 Albumin [Mass/Vol] 3.9 g/dL Normal 3.9-4.9 [facility] Comment on above: Order Comment: Speci men Type: BLOOD SPECIMENOrdering Facility: [facility] Address: [address] [place] [address] Performed By: #### 2 4323-8 ####[facility] LABCLIA [id number] [place] [address] ALP [Catalytic activity/Vol] 66 U/L Normal 34-123 [facility] Comment on above: Order Comment: Speci men Type: BLOOD SPECIMENOrdering Facility: [facility] Address: [address] [place], [place] [address] Performed By: #### 2 4323-8 ####[facility] LABCLIA [id number] [place] [address] ALT [Catalytic activity/Vol] 62 U/L High 7-38 [facility] Comment on above: Order Comment: Speci men Type: BLOOD SPECIMENOrdering Facility: [facility] Address: [address] [place] [address] Performed By: #### 2 4323-8 ####[facility] LABCLIA [id number] [place] [address] Anion gap [Moles/Vol] 9 mmol/L Normal 8-15 [facility] Comment on above: Order Comment: Speci men Type: BLOOD SPECIMENOrdering Facility: [facility] Address: [address] [place] [address] Performed By: #### 2 4323-8 ####[facility] LABCLIA [id number] [place] [address] AST [Catalytic activity/Vol] 55 U/L High 13-35 [facility] Comment on above: Order Comment: Speci men Type: BLOOD SPECIMENOrdering Facility: [facility] Address: [address] [place] [address] Performed By: #### 2 4323-8 ####[facility] LABCLIA [id number] [place] [address] Bilirubin [Mass/Vol] 0.3 mg/dL Normal 0.2-1.3 [facility] Comment on above: Order Comment: Speci men Type: BLOOD SPECIMENOrdering Facility: [facility] Address: [address] [place] [address] Performed By: #### 2 4323-8 ####[facility] LABCLIA [id number] [place] [address] Calcium [Mass/Vol] 9.8 mg/dL Normal 8.5-10.2 [facility] Comment on above: Order Comment: Speci men Type: BLOOD SPECIMENOrdering Facility: [facility] Address: [address] [place] [address] Performed By: #### 2 4323-8 ####[facility] LABCLIA [id number] [place] [address] Chloride [Moles/Vol] 95 mmol/L Low 98-107 [facility] Comment on above: Order Comment: Speci men Type: BLOOD SPECIMENOrdering Facility: [facility] Address: [address] [place] [address] Performed By: #### 2 4323-8 ####[facility] LABCLIA [id number] [place] [address] CO2 [Moles/Vol] 29 mmol/L Normal 22-30 [facility] Comment on above: Order Comment: Speci men Type: BLOOD SPECIMENOrdering Facility: [facility] Address: [address] [place] [address] Performed By: #### 2 4323-8 ####[facility] LABCLIA [id number] [place] [address] Creatinine [Mass/Vol] 0.85 mg/dL Normal 0.58-0.96 [facility] Comment on above: Order Comment: Speci men Type: BLOOD SPECIMENOrdering Facility: [facility] Address: [address] [place] [address] Performed By: #### 2 4323-8 ####[facility] LABCLIA [id number] [place] [address] Creatinine and Glomerular filtration rate.predicted panel (S/P/Bld) 74 mL/min/1.73m??? Normal >=60 [facility] Comment on above: Order Comment: Speci men Type: BLOOD SPECIMENOrdering Facility: [facility] Address: [address] [place] [address] Result Comment: Tosin mated Glomerular Filtration Rate [...] actual GFR. Performed By: #### 2 4323-8 ####[facility] LABCLIA [id number] [place] [address] Glucose [Mass/Vol] 129 mg/dL High 74-99 [facility] Comment on above: Order Comment: Speci men Type: BLOOD SPECIMENOrdering Facility: [facility] Address: [address] [place], [place] [address] Result Comment: The [place] Diabetes Association (ADA) provides guidance for cutoff [...] Standards of Medical Care in Diabetes 2016, [place] [employer]. Diabetes Care. 2016.39(Suppl 1). Performed By: #### 2 4323-8 ####[facility] LABCLIA [id number] [place] [address] Potassium [Moles/Vol] 4.2 mmol/L Normal 3.7-5.1 [facility] Comment on above: Order Comment: Speci men Type: BLOOD SPECIMENOrdering Facility: [facility] Address: [address] [place] [address] Performed By: #### 2 4323-8 ####[facility] LABCLIA [id number] [place] [address] Protein [Mass/Vol] 5.9 g/dL Low 6.3-8.0 [facility] Comment on above: Order Comment: Speci men Type: BLOOD SPECIMENOrdering Facility: [facility] Address: [address] [place], [place] [address] Performed By: #### 2 4323-8 ####[facility] LABCLIA [id number] [place] [address] Sodium [Moles/Vol] 133 mmol/L Low 136-144 [facility] Comment on above: Order Comment: Speci men Type: BLOOD SPECIMENOrdering Facility: [facility] Address: [address] [place] [address] Performed By: #### 2 4323-8 ####[facility] LABCLIA [id number] [place] [id number] Urea nitrogen [Mass/Vol] 9 mg/dL Normal 7-21 [facility] Comment on above: Order Comment: Speci men Type: BLOOD SPECIMENOrdering Facility: [facility] Address: [address] [place] [address] Performed By: #### 2 4323-8 ####[facility] LABCLIA [id number] [place] [id number] CBC W Auto Differential pane l (Bld)on 05-16-2024 Basophils (Bld) [#/Vol] NINF [facility] Basophils/100 WBC (Bld) 0.7 % [facility] Differential cell count method Nom (Bld) Auto [facility] Eosinophils (Bld) [#/Vol] [facility] Eosinophils/100 WBC (Bld) 0.3 % [facility] Erythrocyte distribution width (RBC) [Ratio] 15.9 % High 11.5 - 15.0 % [facility] Hematocrit (Bld) [Volume fraction] 34.5 % Low 36.0 - 46.0 % [facility] Hemoglobin (Bld) [Mass/Vol] 12.0 g/dL 11.5 - 15.5 g/dL [facility] Immature granulocytes (Bld) [#/Vol] NINF [facility] Immature granulocytes/100 WBC (Bld) 0.7 % [facility] Interpretation and review of laboratory results Abnormal [facility] Lymphocytes (Bld) [#/Vol] 0.78 10*3/uL Low [facility] Lymphocytes/100 WBC (Bld) 26.6 % [facility] MCH (RBC) [Entitic mass] 28.8 pg 26.0 - 34.0 pg [facility] MCHC (RBC) [Mass/Vol] 34.8 g/dL 30.5 - 36.0 g/dL [facility] MCV (RBC) [Entitic vol] 82.9 fL 80.0 - 100.0 fL [facility] Monocytes (Bld) [#/Vol] 0.21 10*3/uL [facility] Monocytes/100 WBC (Bld) 7.2 % [facility] Neutrophils (Bld) [#/Vol] 1.89 10*3/uL [facility] Neutrophils/100 WBC (Bld) 64.5 % [facility] Nucleated RBC (Bld) [#/Vol] NINF [facility] Nucleated RBC/100 WBC (Bld) [Ratio] 0.0 % /100 WBC [facility] Platelet mean volume (Bld) [Entitic vol] 8.8 fL Low 9.0 - 12.7 fL [facility] Platelets (Bld) [#/Vol] 546 10*3/uL High [facility] RBC (Bld) [#/Vol] 4.16 10*6/uL 3.90 - 5.2 0 m/uL [facility] WBC (Bld) [#/Vol] 2.93 10*3/uL Low [facility] Basophils (Bld) [#/Vol] 10*3/uL Normal <0.11 [facility] Comment on above: Order Comment: Speci men Type: BLOOD SPECIMENOrdering Facility: [facility] Address: [address] [place] [address] Performed By: #### 5 7021-8 ####[facility] LABCLIA [id number] [place] [address] Basophils/100 WBC (Bld) 0.7 % Normal [facility] Comment on above: Order Comment: Speci men Type: BLOOD SPECIMENOrdering Facility: [facility] Address: [address] [place] [address] Performed By: #### 5 7021-8 ####[facility] LABCLIA [id number] [place] [address] Differential cell count method Nom (Bld) Auto Normal [facility] Comment on above: Order Comment: Speci men Type: BLOOD SPECIMENOrdering Facility: [facility] Address: [address] [place] [address] Performed By: #### 5 7021-8 ####[facility] LABCLIA [id number] [place] [address] Eosinophils (Bld) [#/Vol] 10*3/uL Normal <0.46 [facility] Comment on above: Order Comment: Speci men Type: BLOOD SPECIMENOrdering Facility: [facility] Address: [address] [place] [address] Performed By: #### 5 7021-8 ####[facility] LABCLIA [id number] [place] [address] Eosinophils/100 WBC (Bld) 0.3 % Normal [facility] Comment on above: Order Comment: Speci men Type: BLOOD SPECIMENOrdering Facility: [facility] Address: [address] [place] [address] Performed By: #### 5 7021-8 ####[facility] LABCLIA [id number] [place] [address] Erythrocyte distribution width (RBC) [Ratio] 15.9 % High 11.5-15.0 [facility] Comment on above: Order Comment: Speci men Type: BLOOD SPECIMENOrdering Facility: [facility] Address: [address] [place] [address] Performed By: #### 5 7021-8 ####[facility] LABCLIA [id number] [place] [address] Hematocrit (Bld) [Volume fraction] 34.5 % Low 36.0-46.0 [facility] Comment on above: Order Comment: Speci men Type: BLOOD SPECIMENOrdering Facility: [facility] Address: [address] [place] [address] Performed By: #### 5 7021-8 ####[facility] LABCLIA [id number] [place] [address] Hemoglobin (Bld) [Mass/Vol] 12.0 g/dL Normal 11.5-15.5 [facility] Comment on above: Order Comment: Speci men Type: BLOOD SPECIMENOrdering Facility: [facility] Address: [address] [place] [address] Performed By: #### 5 7021-8 ####[facility] LABCLIA [id number] [place] [address] Immature granulocytes (Bld) [#/Vol] 10*3/uL Normal <0.10 [facility] Comment on above: Order Comment: Speci men Type: BLOOD SPECIMENOrdering Facility: [facility] Address: [address] [place] [address] Performed By: #### 5 7021-8 ####[facility] LABCLIA [id number] [place] [address] Immature granulocytes/100 WBC (Bld) 0.7 % Normal [facility] Comment on above: Order Comment: Speci men Type: BLOOD SPECIMENOrdering Facility: [facility] Address: [address] [place] [address] Performed By: #### 5 7021-8 ####[facility] LABCLIA [id number] [place] [address] Lymphocytes (Bld) [#/Vol] 0.78 10*3/uL Low 1.00-4.00 [facility] Comment on above: Order Comment: Speci men Type: BLOOD SPECIMENOrdering Facility: [facility] Address: [address] [place] [address] Performed By: #### 5 7021-8 ####[facility] LABCLIA [id number] [place] [address] Lymphocytes/100 WBC (Bld) 26.6 % Normal [facility] Comment on above: Order Comment: Speci men Type: BLOOD SPECIMENOrdering Facility: [facility] Address: [address] [place] [address] Performed By: #### 5 7021-8 ####[facility] LABCLIA [id number] [place] [address] MCH (RBC) [Entitic mass] 28.8 pg Normal 26.0-34.0 [facility] Comment on above: Order Comment: Speci men Type: BLOOD SPECIMENOrdering Facility: [facility] Address: [address] [place] [address] Performed By: #### 5 7021-8 ####[facility] LABCLIA [id number] [place] [address] MCHC (RBC) [Mass/Vol] 34.8 g/dL Normal 30.5-36.0 [facility] Comment on above: Order Comment: Speci men Type: BLOOD SPECIMENOrdering Facility: [facility] Address: [address] [place] [address] Performed By: #### 5 7021-8 ####[facility] LABCLIA [id number] [place] [address] MCV (RBC) [Entitic vol] 82.9 fL Normal 80.0-100.0 [facility] Comment on above: Order Comment: Speci men Type: BLOOD SPECIMENOrdering Facility: [facility] Address: [address] [place] [address] Performed By: #### 5 7021-8 ####[facility] LABCLIA [id number] [place] [address] Monocytes (Bld) [#/Vol] 0.21 10*3/uL Normal <0.87 [facility] Comment on above: Order Comment: Speci men Type: BLOOD SPECIMENOrdering Facility: [facility] Address: [address] [place] [address] Performed By: #### 5 7021-8 ####[facility] LABCLIA [id number] [place] [address] Monocytes/100 WBC (Bld) 7.2 % Normal [facility] Comment on above: Order Comment: Speci men Type: BLOOD SPECIMENOrdering Facility: [facility] Address: [address] [place] [address] Performed By: #### 5 7021-8 ####[facility] LABCLIA [id number] [place] [address] Neutrophils (Bld) [#/Vol] 1.89 10*3/uL Normal 1.45-7.50 [facility] Comment on above: Order Comment: Speci men Type: BLOOD SPECIMENOrdering Facility: [facility] Address: [address] [place] [address] Performed By: #### 5 7021-8 ####[facility] LABCLIA [id number] [place] [address] Neutrophils/100 WBC (Bld) 64.5 % Normal [facility] Comment on above: Order Comment: Speci men Type: BLOOD SPECIMENOrdering Facility: [facility] Address: [address] [place] [address] Performed By: #### 5 7021-8 ####[facility] LABCLIA [id number] [place] [address] Nucleated RBC (Bld) [#/Vol] 10*3/uL Normal <0.01 [facility] Comment on above: Order Comment: Speci men Type: BLOOD SPECIMENOrdering Facility: [facility] Address: [address] [place] [address] Performed By: #### 5 7021-8 ####[facility] LABCLIA [id number] [place] [address] Nucleated RBC/100 WBC (Bld) [Ratio] 0.0 /100 WBC Normal [facility] Comment on above: Order Comment: Speci men Type: BLOOD SPECIMENOrdering Facility: [facility] Address: [address] [place] [address] Performed By: #### 5 7021-8 ####[facility] LABCLIA [id number] [place] [address] Platelet mean volume (Bld) [Entitic vol] 8.8 fL Low 9.0-12.7 [facility] Comment on above: Order Comment: Speci men Type: BLOOD SPECIMENOrdering Facility: [facility] Address: [address] [place] [address] Performed By: #### 5 7021-8 ####[facility] LABIA [id number] [place] [address] Platelets (Bld) [#/Vol] 546 10*3/uL High 150-400 [facility] Comment on above: Order Comment: Speci men Type: BLOOD SPECIMENOrdering Facility: [facility] Address: [address] [place] [address] Performed By: #### 5 7021-8 ####[facility] LABIA [id number] [place] [address] RBC (Bld) [#/Vol] 4.16 10*6/uL Normal 3.90-5.20 [facility] Comment on above: Order Comment: Speci men Type: BLOOD SPECIMENOrdering Facility: [facility] Address: [address] [place] [address] Performed By: #### 5 7021-8 ####[facility] LABIA [id number] [place] [address] WBC (Bld) [#/Vol] 2.93 10*3/uL Low 3.70-11.00 [facility] Comment on above: Order Comment: Speci men Type: BLOOD SPECIMENOrdering Facility: [facility] Address: [address] [place] [address] Performed By: #### 5 7021-8 ####[facility] LABIA [id number] [place] [address] Comprehensive metabolic 2000 panelOrdered By: Thea Ellison on 05-16-2024 Albumin [Mass/Vol] 3.9 g/dL 3.9 - 4.9 g/dL [facility] ALP [Catalytic activity/Vol] 68 U/L 34 - 123 U/L [facility] ALT [Catalytic activity/Vol] 63 U/L High 7 - 38 U/L [facility] Anion gap [Moles/Vol] 11 mmol/L 8 - 15 mmol/L [facility] AST [Catalytic activity/Vol] 44 U/L High 13 - 35 U/L [facility] Bilirubin [Mass/Vol] 0.3 mg/dL 0.2 - 1 .3 mg/dL [facility] Calcium [Mass/Vol] 9.4 mg/dL 8.5 - 10. 2 mg/dL [facility] Chloride [Moles/Vol] 94 mmol/L Low 98 - 10 7 mmol/L [facility] CO2 [Moles/Vol] 26 mmol/L 22 - 30 mmol/L [facility] Creatinine [Mass/Vol] 0.66 mg/dL 0.58 - 0.96 mg/dL [facility] GFR/1.73 sq M.predicted among non-blacks MDRD (S/P/Bld) [Vol rate/Area] 95 mL/min/{1.73_m2} - PINF [facility] Comment on above: Estimated Glomerular Filtration [...] 143 mg/dL High 74 - 99 mg/dL [facility] Comment on above: The [place] Di[employer] Association (ADA) provides guidance for [...] Standards of Medical Care in Diabetes 2016, [place] [employer]. Diabetes Care. 2016.39(Suppl 1). Interpretation and review of laboratory results Abnormal [facility] Potassium [Moles/Vol] 3.4 mmol/L Low 3.7 - 5.1 mmol/L [facility] Protein [Mass/Vol] 6.0 g/dL Low 6.3 - 8.0 g/dL [facility] Sodium [Moles/Vol] 131 mmol/L Low 136 - 144 mmol/L [facility] Urea nitrogen [Mass/Vol] 6 mg/dL Low 7 - 21 mg/dL [facility] Comprehensive metabolic 2000 panelon 05-16-2024 Albumin [Mass/Vol] 3.9 g/dL Normal 3.9-4.9 [facility] Comment on above: Order Comment: Speci men Type: BLOOD SPECIMENOrdering Facility: [facility] Address: [address] [place] [address] Performed By: #### 1 9123-9, 38849-2 ####[facility] LABCLIA [id number] [place] [address] ALP [Catalytic activity/Vol] 68 U/L Normal 34-123 [facility] Comment on above: Order Comment: Speci men Type: BLOOD SPECIMENOrdering Facility: [facility] Address: [address] [place] [address] Performed By: #### 1 9123-9, 69647-5 ####[facility] LABCLIA [id number] [place] [address] ALT [Catalytic activity/Vol] 63 U/L High 7-38 [facility] Comment on above: Order Comment: Speci men Type: BLOOD SPECIMENOrdering Facility: [facility] Address: [address] [place] [address] Performed By: #### 1 9123-9, 85342-3 ####[facility] LABCLIA [id number] [place] [address] Anion gap [Moles/Vol] 11 mmol/L Normal 8-15 [facility] Comment on above: Order Comment: Speci men Type: BLOOD SPECIMENOrdering Facility: [facility] Address: [address] [place], [place] [address] Performed By: #### 1 9123-9, 58548-3 ####[facility] LABCLIA [id number] [place] [address] AST [Catalytic activity/Vol] 44 U/L High 13-35 [facility] Comment on above: Order Comment: Speci men Type: BLOOD SPECIMENOrdering Facility: [facility] Address: [address] [place] [address] Performed By: #### 1 9123-9, 37397-2 ####[facility] LABCLIA [id number] [place] [address] Bilirubin [Mass/Vol] 0.3 mg/dL Normal 0.2-1.3 [facility] Comment on above: Order Comment: Speci men Type: BLOOD SPECIMENOrdering Facility: [facility] Address: [address] [place] [address] Performed By: #### 1 9123-9, 52216-4 ####[facility] LABCLIA [id number] [place] [address] Calcium [Mass/Vol] 9.4 mg/dL Normal 8.5-10.2 [facility] Comment on above: Order Comment: Speci men Type: BLOOD SPECIMENOrdering Facility: [facility] Address: [address] [place] [address] Performed By: #### 1 9123-9, 04315-5 ####[facility] LABCLIA [id number] [place] [address] Chloride [Moles/Vol] 94 mmol/L Low 98-107 [facility] Comment on above: Order Comment: Speci men Type: BLOOD SPECIMENOrdering Facility: [facility] Address: [address] [place] [address] Performed By: #### 1 9123-9, 44085-7 ####[facility] LABCLIA [id number] [place] [address] CO2 [Moles/Vol] 26 mmol/L Normal 22-30 [facility] Comment on above: Order Comment: Speci men Type: BLOOD SPECIMENOrdering Facility: [facility] Address: [address] [place] [address] Performed By: #### 1 9123-9, 42358-8 ####[facility] LABCLIA [id number] [place] [address] Creatinine [Mass/Vol] 0.66 mg/dL Normal 0.58-0.96 [facility] Comment on above: Order Comment: Speci men Type: BLOOD SPECIMENOrdering Facility: [facility] Address: [address] [place] [address] Performed By: #### 1 9123-9, 27204-4 ####[facility] LABIA [id number] [place] [address] Creatinine and Glomerular filtration rate.predicted panel (S/P/Bld) 95 mL/min/1.73m??? Normal >=60 [facility] Comment on above: Order Comment: Speci men Type: BLOOD SPECIMENOrdering Facility: [facility] Address: [address] [place] [address] Result Comment: Tosin mated Glomerular Filtration Rate [...] actual GFR. Performed By: #### 1 9123-9, 56331-2 ####[facility] LABIA [id number] [place] [address] Glucose [Mass/Vol] 143 mg/dL High 74-99 [facility] Comment on above: Order Comment: Speci men Type: BLOOD SPECIMENOrdering Facility: [facility] Address: [address] [id number] Result Comment: The [place] Diabetes Association (ADA) provides guidance for cutoff [...] Standards of Medical Care in Diabetes 2016, [place] [employer]. Diabetes Care. 2016.39(Suppl 1). Performed By: #### 1 9123-9, 00504-6 ####[facility] LABCLIA [id number] [place] [address] Potassium [Moles/Vol] 3.4 mmol/L Low 3.7-5.1 [facility] Comment on above: Order Comment: Speci men Type: BLOOD SPECIMENOrdering Facility: [facility] Address: [address] [place] [address] Performed By: #### 1 9123-9, ####[facility] LABCLIA [id number] [place] [address] Protein [Mass/Vol] 6.0 g/dL Low 6.3-8.0 [facility] Comment on above: Order Comment: Speci men Type: BLOOD SPECIMENOrdering Facility: [facility] Address: [address] [phone] Performed By: #### 1 9123-9, ####[facility] LABCLIA [id number] [place] [address] Sodium [Moles/Vol] 131 mmol/L Low 136-144 [facility] Comment on above: Order Comment: Speci men Type: BLOOD SPECIMENOrdering Facility: [facility] Address: [address] [phone] Performed By: #### 1 9123-9, 09691-8 ####[facility] LABCLIA [id number] [place] [address] Urea nitrogen [Mass/Vol] 6 mg/dL Low 7-21 [facility] Comment on above: Order Comment: Speci men Type: BLOOD SPECIMENOrdering Facility: [facility] Address: [address] [place] [address] Performed By: #### 1 9123-9, 20958-2 ####[facility] LABCLIA [id number] [place] [address] MAGNESIUMon 05-16-2024 Magnesium [Mass/Vol] 1.3 mg/dL Low 1.7 - 2 .3 mg/dL [facility] Magnesium SerPl-mCncon 05-16 Magnesium [Mass/Vol] 1.3 mg/dL Low 1.7-2.3 [facility] Comment on above: Order Comment: Speci men Type: BLOOD SPECIMENOrdering Facility: [facility] Address: [address] [place] [address] Performed By: #### 1 9123-9, 74328-9 ####[facility] LABCLIA [id number] [place] [address] Magnesium [Mass/Vol]on 05-16 Interpretation and review of laboratory results Abnormal [facility] CBC W Auto Differential pane l (Bld)on 05-09-2024 Basophils (Bld) [#/Vol] 0.04 10*3/uL Normal <0.11 [facility] Comment on above: Order Comment: Speci men Type: BLOOD SPECIMENOrdering Facility: [facility] Address: [address] [phone] Performed By: #### 5 7021-8 ####[facility] LABCLIA [id number] [place] [address] Basophils/100 WBC (Bld) 0.8 % Normal [facility] Comment on above: Order Comment: Speci men Type: BLOOD SPECIMENOrdering Facility: [facility] Address: [address] [place] [address] Performed By: #### 5 7021-8 ####[facility] LABCLIA [id number] [place] [address] Differential cell count method Nom (Bld) Auto Normal [facility] Comment on above: Order Comment: Speci men Type: BLOOD SPECIMENOrdering Facility: [facility] Address: [address] [place] [address] Performed By: #### 5 7021-8 ####[facility] LABCLIA [id number] [place] [address] Eosinophils (Bld) [#/Vol] 0.06 10*3/uL Normal <0.46 [facility] Comment on above: Order Comment: Speci men Type: BLOOD SPECIMENOrdering Facility: [facility] Address: [address] [place] [address] Performed By: #### 5 7021-8 ####[facility] LABCLIA [id number] [place] [address] Eosinophils/100 WBC (Bld) 1.2 % Normal [facility] Comment on above: Order Comment: Speci men Type: BLOOD SPECIMENOrdering Facility: [facility] Address: [address] [place] [address] Performed By: #### 5 7021-8 ####[facility] LABCLIA [id number] [place] [address] Erythrocyte distribution width (RBC) [Ratio] 16.0 % High 11.5-15.0 [facility] Comment on above: Order Comment: Speci men Type: BLOOD SPECIMENOrdering Facility: [facility] Address: [address] [place] [address] Performed By: #### 5 7021-8 ####[facility] LABCLIA [id number] [place] [address] Hematocrit (Bld) [Volume fraction] 38.0 % Normal 36.0-46.0 [facility] Comment on above: Order Comment: Speci men Type: BLOOD SPECIMENOrdering Facility: [facility] Address: [address] [place] [address] Performed By: #### 5 7021-8 ####[facility] LABCLIA [id number] [place] [address] Hemoglobin (Bld) [Mass/Vol] 12.8 g/dL Normal 11.5-15.5 [facility] Comment on above: Order Comment: Speci men Type: BLOOD SPECIMENOrdering Facility: [facility] Address: [address] [place] [address] Performed By: #### 5 7021-8 ####[facility] LABCLIA [id number] [place] [address] Immature granulocytes (Bld) [#/Vol] 10*3/uL Normal <0.10 [facility] Comment on above: Order Comment: Speci men Type: BLOOD SPECIMENOrdering Facility: [facility] Address: [address] [place] [address] Performed By: #### 5 7021-8 ####[facility] LABCLIA [id number] [place] [address] Immature granulocytes/100 WBC (Bld) 0.4 % Normal [facility] Comment on above: Order Comment: Speci men Type: BLOOD SPECIMENOrdering Facility: [facility] Address: [address] [place] [address] Performed By: #### 5 7021-8 ####[facility] LABCLIA [id number] [place] [address] Lymphocytes (Bld) [#/Vol] 1.33 10*3/uL Normal 1.00-4.00 [facility] Comment on above: Order Comment: Speci men Type: BLOOD SPECIMENOrdering Facility: [facility] Address: [address] [place] [address] Performed By: #### 5 7021-8 ####[facility] LABCLIA [id number] [place] [address] Lymphocytes/100 WBC (Bld) 26.5 % Normal [facility] Comment on above: Order Comment: Speci men Type: BLOOD SPECIMENOrdering Facility: [facility] Address: [address] [place] [address] Performed By: #### 5 7021-8 ####[facility] LABCLIA [id number] [place] [address] MCH (RBC) [Entitic mass] 28.6 pg Normal 26.0-34.0 [facility] Comment on above: Order Comment: Speci men Type: BLOOD SPECIMENOrdering Facility: [facility] Address: [address] [place] [address] Performed By: #### 5 7021-8 ####[facility] LABCLIA [id number] [place] [address] MCHC (RBC) [Mass/Vol] 33.7 g/dL Normal 30.5-36.0 [facility] Comment on above: Order Comment: Speci men Type: BLOOD SPECIMENOrdering Facility: [facility] Address: [address] [place] [address] Performed By: #### 5 7021-8 ####[facility] LABCLIA [id number] [place] [address] MCV (RBC) [Entitic vol] 85.0 fL Normal 80.0-100.0 [facility] Comment on above: Order Comment: Speci men Type: BLOOD SPECIMENOrdering Facility: [facility] Address: [address] [place] [address] Performed By: #### 5 7021-8 ####[facility] LABCLIA [id number] [place] [address] Monocytes (Bld) [#/Vol] 0.75 10*3/uL Normal <0.87 [facility] Comment on above: Order Comment: Speci men Type: BLOOD SPECIMENOrdering Facility: [facility] Address: [address] [place] [address] Performed By: #### 5 7021-8 ####[facility] LABCLIA [id number] [place] [address] Monocytes/100 WBC (Bld) 15.0 % Normal [facility] Comment on above: Order Comment: Speci men Type: BLOOD SPECIMENOrdering Facility: [facility] Address: [address] [place] [address] Performed By: #### 5 7021-8 ####[facility] LABCLIA [id number] [place] [address] Neutrophils (Bld) [#/Vol] 2.81 10*3/uL Normal 1.45-7.50 [facility] Comment on above: Order Comment: Speci men Type: BLOOD SPECIMENOrdering Facility: [facility] Address: [address] [place] [address] Performed By: #### 5 7021-8 ####[facility] LABCLIA [id number] [place] [address] Neutrophils/100 WBC (Bld) 56.1 % Normal [facility] Comment on above: Order Comment: Speci men Type: BLOOD SPECIMENOrdering Facility: [facility] Address: [address] [place] [address] Performed By: #### 5 7021-8 ####[facility] LABCLIA [id number] [place] [address] Nucleated RBC (Bld) [#/Vol] 10*3/uL Normal <0.01 [facility] Comment on above: Order Comment: Speci men Type: BLOOD SPECIMENOrdering Facility: [facility] Address: [address] [place] [address] Performed By: #### 5 7021-8 ####[facility] LABCLIA [id number] [place] [address] Nucleated RBC/100 WBC (Bld) [Ratio] 0.0 /100 WBC Normal [facility] Comment on above: Order Comment: Speci men Type: BLOOD SPECIMENOrdering Facility: [facility] Address: [address] [place] [address] Performed By: #### 5 7021-8 ####[facility] LABCLIA [id number] [place] [address] Platelet mean volume (Bld) [Entitic vol] 8.7 fL Low 9.0-12.7 [facility] Comment on above: Order Comment: Speci men Type: BLOOD SPECIMENOrdering Facility: [facility] Address: [address] [place] [address] Performed By: #### 5 7021-8 ####[facility] LABIA [id number] [place] [address] Platelets (Bld) [#/Vol] 459 10*3/uL High 150-400 [facility] Comment on above: Order Comment: Speci men Type: BLOOD SPECIMENOrdering Facility: [facility] Address: [address] [place] [address] Performed By: #### 5 7021-8 ####[facility] LABCLIA [id number] [place] [address] RBC (Bld) [#/Vol] 4.47 10*6/uL Normal 3.90-5.20 [facility] Comment on above: Order Comment: Speci men Type: BLOOD SPECIMENOrdering Facility: [facility] Address: [address] [place] [address] Performed By: #### 5 7021-8 ####[facility] LABIA [id number] [place] [address] WBC (Bld) [#/Vol] 5.01 10*3/uL Normal 3.70-11.00 [facility] Comment on above: Order Comment: Speci men Type: BLOOD SPECIMENOrdering Facility: [facility] Address: [address] [place] [address] Performed By: #### 5 7021-8 ####[facility] LABIA [id number] [place] [address] CNOVSPon 05-09-2024 CNOVSP Visit (SP) Office (HEMASA) CYNTHIAGordySVETLANA Mackey ([id number]) 1955 F Date Time Provider Department 05/09/24 9:30 AM DORIS DUPREE During your visit today, we recorded the following information about you: Temperature Pulse Respiration Blood pressure 97.6 degrees 99/minute 16/minute 100/59 Weight Height 46 kg 1.507 m Kamille French APRN.[facility] 05/09/2024 11:47 AM Signed NAME: Svetlana Adrian CLINIC NO.: [id number] DATE OF SERVICE: May 08, 2024 (Sandi) [...] Bladder mass, transurethral resection: Dr. Dalton at [facility] - High-grade urothelial carcinoma with lamina propria [...] increased fatigue since starting chemotherapy. 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 Weight is down [...] neoadjuvant chemotherapy with gemcitabine + cisplatin vs. Lincoln / Carbo She denies use of supplemental [...] Temp (Src) (more content not included)... Normal [facility] Comprehensive metabolic 2000 panelon 05-09-2024 Albumin [Mass/Vol] 4.3 g/dL Normal 3.9-4.9 [facility] Comment on above: Order Comment: Speci men Type: BLOOD SPECIMENOrdering Facility: [facility] Address: [address] [place] [address] Performed By: #### 1 23-9, 09141-4 ####[facility] LABCLIA [id number] [place] [address] ALP [Catalytic activity/Vol] 81 U/L Normal 34-123 [facility] Comment on above: Order Comment: Speci men Type: BLOOD SPECIMENOrdering Facility: [facility] Address: [address] [place] [address] Performed By: #### 1 23-9, ####[facility] LABCLIA [id number] [place] [address] ALT [Catalytic activity/Vol] 41 U/L High 7-38 [facility] Comment on above: Order Comment: Speci men Type: BLOOD SPECIMENOrdering Facility: [facility] Address: [address] [place] [address] Performed By: #### 1 23-9, 37658-5 ####[facility] LABCLIA [id number] [place] [address] Anion gap [Moles/Vol] 10 mmol/L Normal 8-15 [facility] Comment on above: Order Comment: Speci men Type: BLOOD SPECIMENOrdering Facility: [facility] Address: [address] [place] [address] Performed By: #### 1 23-9, ####[facility] LABCLIA [id number] [place] [address] AST [Catalytic activity/Vol] 28 U/L Normal 13-35 [facility] Comment on above: Order Comment: Speci men Type: BLOOD SPECIMENOrdering Facility: [facility] Address: [address] [place] [address] Performed By: #### 1 239, 13916-6 ####[facility] LABCLIA [id number] [place] [address] Bilirubin [Mass/Vol] 0.3 mg/dL Normal 0.2-1.3 [facility] Comment on above: Order Comment: Speci men Type: BLOOD SPECIMENOrdering Facility: [facility] Address: [address] [place] [address] Performed By: #### 1 9123-9, 29717-9 ####[facility] LABCLIA [id number] [place] [address] Calcium [Mass/Vol] 10.2 mg/dL Normal 8.5-10.2 [facility] Comment on above: Order Comment: Speci men Type: BLOOD SPECIMENOrdering Facility: [facility] Address: [address] [place] [address] Performed By: #### 1 9123-9, 16305-8 ####[facility] LABCLIA [id number] [place] [address] Chloride [Moles/Vol] 95 mmol/L Low 98-107 [facility] Comment on above: Order Comment: Speci men Type: BLOOD SPECIMENOrdering Facility: [facility] Address: [address] [place] [address] Performed By: #### 1 9123-9, 15775-9 ####[facility] LABCLIA [id number] [place] [address] CO2 [Moles/Vol] 29 mmol/L Normal 22-30 [facility] Comment on above: Order Comment: Speci men Type: BLOOD SPECIMENOrdering Facility: [facility] Address: [address] [place] [address] Performed By: #### 1 9123-9, 01469-1 ####[facility] LABCLIA [id number] [place] [address] Creatinine [Mass/Vol] 0.94 mg/dL Normal 0.58-0.96 [facility] Comment on above: Order Comment: Speci men Type: BLOOD SPECIMENOrdering Facility: [facility] Address: [address] [id number] Performed By: #### 1 9123-9, 07003-0 ####[facility] LABCLIA [id number] [place] [address] Creatinine and Glomerular filtration rate.predicted panel (S/P/Bld) 65 mL/min/1.73m??? Normal >=60 [facility] Comment on above: Order Comment: Shantel walters Type: BLOOD SPECIMENOrdering Facility: [facility] Address: [address] [place] [address] Result Comment: Tosin mated Glomerular Filtration Rate [...] actual GFR. Performed By: #### 1 9123-9, 87566-8 ####[facility] LABCLIA [id number] [place] [address] Glucose [Mass/Vol] 135 mg/dL High 74-99 [facility] Comment on above: Order Comment: Shantel walters Type: BLOOD SPECIMENOrdering Facility: [facility] Address: [address] [place] [address] Result Comment: The [place] [employer] (ADA) provides guidance for cutoff [...] Standards of Medical Care in Diabetes 2016, [place] [employer]. Diabetes Care. 2016.39(Suppl 1). Performed By: #### 1 9123-9, 33856-2 ####[facility] LABCLIA [id number] [place] [address] Potassium [Moles/Vol] 4.6 mmol/L Normal 3.7-5.1 [facility] Comment on above: Order Comment: Speci men Type: BLOOD SPECIMENOrdering Facility: [facility] Address: [address] [place] [address] Performed By: #### 1 23-9, 24898-8 ####[facility] LABCLIA [id number] [place] [address] Protein [Mass/Vol] 6.5 g/dL Normal 6.3-8.0 [facility] Comment on above: Order Comment: Speci men Type: BLOOD SPECIMENOrdering Facility: [facility] Address: [address] [place] [address] Performed By: #### 1 239, 47646-8 ####[facility] LABCLIA [id number] [place] [address] Sodium [Moles/Vol] 134 mmol/L Low 136-144 [facility] Comment on above: Order Comment: Speci men Type: BLOOD SPECIMENOrdering Facility: [facility] Address: [address] [place] [address] Performed By: #### 1 239, 15089-5 ####[facility] LABCLIA [id number] [place] [address] Urea nitrogen [Mass/Vol] 11 mg/dL Normal 7-21 [facility] Comment on above: Order Comment: Speci men Type: BLOOD SPECIMENOrdering Facility: [facility] Address: [address] [place] [address] Performed By: #### 1 9123-9, 02255-6 ####[facility] LABCLIA [id number] [place] [address] MAGNESIUMOrdered By: Dante hyde on 05-09-2024 Magnesium [Mass/Vol] 1.4 mg/dL Low 1.7 - 2 .3 mg/dL [facility] Magnesium Carlos 05-09 Magnesium [Mass/Vol] 1.4 mg/dL Low 1.7-2.3 [facility] Comment on above: Order Comment: Speci men Type: BLOOD SPECIMENOrdering Facility: [facility] Address: [address] [place] [address] Performed By: #### 1 9123-9, 42833-3 ####[facility] LABCLIA [id number] [place] [address] Magnesium [Mass/Vol]Ordered By: Dante Brooks on 05-09-2024 Interpretation and review of laboratory results Abnormal [facility] CBC W Auto Differential pane l (Bld)on 04-25-2024 Basophils (Bld) [#/Vol] 10*3/uL Normal <0.11 [facility] Comment on above: Order Comment: Speci men Type: BLOOD SPECIMENOrdering Facility: [facility] Address: [address] [place] [address] Performed By: #### 5 7021-8 ####[facility] LABCLIA [id number] [place] [address] Basophils/100 WBC (Bld) 0.5 % Normal [facility] Comment on above: Order Comment: Speci men Type: BLOOD SPECIMENOrdering Facility: [facility] Address: [address] [place] [address] Performed By: #### 5 7021-8 ####[facility] LABCLIA [id number] [place] [address] Differential cell count method Nom (Bld) Auto Normal [facility] Comment on above: Order Comment: Speci men Type: BLOOD SPECIMENOrdering Facility: [facility] Address: [address] [place] [address] Performed By: #### 5 7021-8 ####[facility] LABCLIA [id number] [place] [address] Eosinophils (Bld) [#/Vol] 0.05 10*3/uL Normal <0.46 [facility] Comment on above: Order Comment: Speci men Type: BLOOD SPECIMENOrdering Facility: [facility] Address: [address] [place] [address] Performed By: #### 5 7021-8 ####[facility] LABCLIA [id number] [place] [address] Eosinophils/100 WBC (Bld) 1.2 % Normal [facility] Comment on above: Order Comment: Speci men Type: BLOOD SPECIMENOrdering Facility: [facility] Address: [address] [place] [address] Performed By: #### 5 7021-8 ####[facility] LABIA [id number] [place] [address] Erythrocyte distribution width (RBC) [Ratio] 14.7 % Normal 11.5-15.0 [facility] Comment on above: Order Comment: Speci men Type: BLOOD SPECIMENOrdering Facility: [facility] Address: [address] [place] [address] Performed By: #### 5 7021-8 ####[facility] LABCLIA [id number] [place] [address] Hematocrit (Bld) [Volume fraction] 37.4 % Normal 36.0-46.0 [facility] Comment on above: Order Comment: Speci men Type: BLOOD SPECIMENOrdering Facility: [facility] Address: [address] [place] [address] Performed By: #### 5 7021-8 ####[facility] LABIA [id number] [place] [address] Hemoglobin (Bld) [Mass/Vol] 13.0 g/dL Normal 11.5-15.5 [facility] Comment on above: Order Comment: Speci men Type: BLOOD SPECIMENOrdering Facility: [facility] Address: [address] [place] [address] Performed By: #### 5 7021-8 ####[facility] LABCLIA [id number] [place] [address] Immature granulocytes (Bld) [#/Vol] 10*3/uL Normal <0.10 [facility] Comment on above: Order Comment: Speci men Type: BLOOD SPECIMENOrdering Facility: [facility] Address: [address] [place] [address] Performed By: #### 5 7021-8 ####[facility] LABCLIA [id number] [place] [address] Immature granulocytes/100 WBC (Bld) 0.2 % Normal [facility] Comment on above: Order Comment: Speci men Type: BLOOD SPECIMENOrdering Facility: [facility] Address: [address] [place] [address] Performed By: #### 5 7021-8 ####[facility] LABCLIA [id number] [place] [address] Lymphocytes (Bld) [#/Vol] 0.75 10*3/uL Low 1.00-4.00 [facility] Comment on above: Order Comment: Speci men Type: BLOOD SPECIMENOrdering Facility: [facility] Address: [address] [place] [address] Performed By: #### 5 7021-8 ####[facility] LABCLIA [id number] [place] [address] Lymphocytes/100 WBC (Bld) 18.6 % Normal [facility] Comment on above: Order Comment: Speci men Type: BLOOD SPECIMENOrdering Facility: [facility] Address: [address] [place] [address] Performed By: #### 5 7021-8 ####[facility] LABCLIA [id number] [place] [address] MCH (RBC) [Entitic mass] 28.3 pg Normal 26.0-34.0 [facility] Comment on above: Order Comment: Speci men Type: BLOOD SPECIMENOrdering Facility: [facility] Address: [address] [place] [address] Performed By: #### 5 7021-8 ####[facility] LABCLIA [id number] [place] [address] MCHC (RBC) [Mass/Vol] 34.8 g/dL Normal 30.5-36.0 [facility] Comment on above: Order Comment: Speci men Type: BLOOD SPECIMENOrdering Facility: [facility] Address: [address] [place] [address] Performed By: #### 5 7021-8 ####[facility] LABIA [id number] [place] [address] MCV (RBC) [Entitic vol] 81.3 fL Normal 80.0-100.0 [facility] Comment on above: Order Comment: Speci men Type: BLOOD SPECIMENOrdering Facility: [facility] Address: [address] [place] [address] Performed By: #### 5 7021-8 ####[facility] LABCLIA [id number] [place] [address] Monocytes (Bld) [#/Vol] 0.32 10*3/uL Normal <0.87 [facility] Comment on above: Order Comment: Speci men Type: BLOOD SPECIMENOrdering Facility: [facility] Address: [address] [place] [address] Performed By: #### 5 7021-8 ####[facility] LABCLIA [id number] [place] [address] Monocytes/100 WBC (Bld) 7.9 % Normal [facility] Comment on above: Order Comment: Speci men Type: BLOOD SPECIMENOrdering Facility: [facility] Address: [address] [place] [address] Performed By: #### 5 7021-8 ####[facility] LABCLIA [id number] [place] [address] Neutrophils (Bld) [#/Vol] 2.89 10*3/uL Normal 1.45-7.50 [facility] Comment on above: Order Comment: Speci men Type: BLOOD SPECIMENOrdering Facility: [facility] Address: [address] [place] [address] Performed By: #### 5 7021-8 ####[facility] LABCLIA [id number] [place] [address] Neutrophils/100 WBC (Bld) 71.6 % Normal [facility] Comment on above: Order Comment: Speci men Type: BLOOD SPECIMENOrdering Facility: [facility] Address: [address] [place] [address] Performed By: #### 5 7021-8 ####[facility] LABIA [id number] [place] [address] Nucleated RBC (Bld) [#/Vol] 10*3/uL Normal <0.01 [facility] Comment on above: Order Comment: Speci men Type: BLOOD SPECIMENOrdering Facility: [facility] Address: [address] [place] [address] Performed By: #### 5 7021-8 ####[facility] LABCLIA [id number] [place] [address] Nucleated RBC/100 WBC (Bld) [Ratio] 0.0 /100 WBC Normal [facility] Comment on above: Order Comment: Speci men Type: BLOOD SPECIMENOrdering Facility: [facility] Address: [address] [place] [address] Performed By: #### 5 7021-8 ####[facility] LABCLIA [id number] [place] [address] Platelet mean volume (Bld) [Entitic vol] 8.3 fL Low 9.0-12.7 [facility] Comment on above: Order Comment: Speci men Type: BLOOD SPECIMENOrdering Facility: [facility] Address: [address] [place] [address] Performed By: #### 5 7021-8 ####[facility] LABIA [id number] [place] [address] Platelets (Bld) [#/Vol] 241 10*3/uL Normal 150-400 [facility] Comment on above: Order Comment: Speci men Type: BLOOD SPECIMENOrdering Facility: [facility] Address: [address] [place] [address] Performed By: #### 5 7021-8 ####[facility] LABIA [id number] [place] [address] RBC (Bld) [#/Vol] 4.60 10*6/uL Normal 3.90-5.20 [facility] Comment on above: Order Comment: Speci men Type: BLOOD SPECIMENOrdering Facility: [facility] Address: [address] [place] [address] Performed By: #### 5 7021-8 ####[facility] LABIA [id number] [place] [address] WBC (Bld) [#/Vol] 4.04 10*3/uL Normal 3.70-11.00 [facility] Comment on above: Order Comment: Speci men Type: BLOOD SPECIMENOrdering Facility: [facility] Address: [address] [place] [address] Performed By: #### 5 7021-8 ####[facility] LABIA [id number] [place] [address] CNOVSPon 04-25-2024 CNOVSP Visit (SP) Office (HEMASA) SVETLANA ADRIAN ([id number]) 1955 F Date Time Provider Department 04/25/24 8:45 AM LEE DUNN During your visit today, we recorded the following information about you: Temperature Pulse Respiration Blood pressure 97.1 degrees 76/minute 18/minute 123/83 Weight 48.5 kg Lee Dunn MD 04/26/2024 8:40 AM Signed NAME: Svetlana Adrian CLINIC NO.: [id number] DATE OF SERVICE: April 25, 2024 (Sagar) [...] 25 mg/m2 each day Follow up with photographs curator RTC for C2 D1 in 2 weeks [...] Bladder mass, transurethral resection: Dr. Dalton at [facility] - High-grade urothelial carcinoma with lamina propria [...] neoadjuvant chemotherapy with gemcitabine + cisplatin vs. Lincoln / Carbo She denies use of supplemental [...] Known Allergi (more content not included)... Normal [facility] Comprehensive metabolic 2000 panelon 04-25-2024 Albumin [Mass/Vol] 4.1 g/dL Normal 3.9-4.9 [facility] Comment on above: Order Comment: Speci men Type: BLOOD SPECIMENOrdering Facility: [facility] Address: [address] [address] Performed By: #### 2 4323-8 ####[facility] LABCLIA [id number] [place] [address] ALP [Catalytic activity/Vol] 71 U/L Normal 34-123 [facility] Comment on above: Order Comment: Speci men Type: BLOOD SPECIMENOrdering Facility: [facility] Address: [address] [place] [address] Performed By: #### 2 4323-8 ####[facility] LABCLIA [id number] [place] [address] ALT [Catalytic activity/Vol] 36 U/L Normal 7-38 [facility] Comment on above: Order Comment: Speci men Type: BLOOD SPECIMENOrdering Facility: [facility] Address: [address] [place] [address] Performed By: #### 2 4323-8 ####[facility] LABCLIA [id number] [place] [address] Anion gap [Moles/Vol] 12 mmol/L Normal 8-15 [facility] Comment on above: Order Comment: Speci men Type: BLOOD SPECIMENOrdering Facility: [facility] Address: [address] [place] [address] Performed By: #### 2 4323-8 ####[facility] LABCLIA [id number] [place] [address] AST [Catalytic activity/Vol] 29 U/L Normal 13-35 [facility] Comment on above: Order Comment: Speci men Type: BLOOD SPECIMENOrdering Facility: [facility] Address: [address] [place] [address] Performed By: #### 2 4323-8 ####[facility] LABCLIA [id number] [place] [address] Bilirubin [Mass/Vol] 0.4 mg/dL Normal 0.2-1.3 [facility] Comment on above: Order Comment: Speci men Type: BLOOD SPECIMENOrdering Facility: [facility] Address: [address] [place] [address] Performed By: #### 2 4323-8 ####[facility] LABCLIA [id number] [place] [address] Calcium [Mass/Vol] 9.8 mg/dL Normal 8.5-10.2 [facility] Comment on above: Order Comment: Speci men Type: BLOOD SPECIMENOrdering Facility: [facility] Address: [address] [place] [address] Performed By: #### 2 4323-8 ####[facility] LABCLIA [id number] [place] [address] Chloride [Moles/Vol] 81 mmol/L Low 98-107 [facility] Comment on above: Order Comment: Speci men Type: BLOOD SPECIMENOrdering Facility: [facility] Address: [address] [place] [address] Performed By: #### 2 4323-8 ####[facility] LABCLIA [id number] [place] [address] CO2 [Moles/Vol] 29 mmol/L Normal 22-30 [facility] Comment on above: Order Comment: Speci men Type: BLOOD SPECIMENOrdering Facility: [facility] Address: [address] [place] [address] Performed By: #### 2 4323-8 ####[facility] LABCLIA [id number] [place] [address] Creatinine [Mass/Vol] 0.68 mg/dL Normal 0.58-0.96 [facility] Comment on above: Order Comment: Speci men Type: BLOOD SPECIMENOrdering Facility: [facility] Address: [address] [place], [place] [address] Performed By: #### 2 4323-8 ####[facility] LABCLIA [id number] [place] [address] Creatinine and Glomerular filtration rate.predicted panel (S/P/Bld) 94 mL/min/1.73m??? Normal >=60 [facility] Comment on above: Order Comment: Speci men Type: BLOOD SPECIMENOrdering Facility: [facility] Address: [address] [id number] Result Comment: Tosin mated Glomerular Filtration Rate [...] actual GFR. Performed By: #### 2 4323-8 ####[facility] LABCLIA [id number] [place] [address] Glucose [Mass/Vol] 128 mg/dL High 74-99 [facility] Comment on above: Order Comment: Shantel walters Type: BLOOD SPECIMENOrdering Facility: [facility] Address: [address] [place] [address] Result Comment: The [place] Diabetes Association (ADA) provides guidance for cutoff [...] Standards of Medical Care in Diabetes 2016, [place] [employer] Association. Diabetes Care. 2016.39(Suppl 1). Performed By: #### 2 4323-8 ####[facility] LABCLIA [id number] [place] [address] Potassium [Moles/Vol] 3.4 mmol/L Low 3.7-5.1 [facility] Comment on above: Order Comment: Shantel walters Type: BLOOD SPECIMENOrdering Facility: [facility] Address: [address] [id number] Performed By: #### 2 4323-8 ####[facility] LABCLIA [id number] [place] [address] Protein [Mass/Vol] 6.5 g/dL Normal 6.3-8.0 [facility] Comment on above: Order Comment: Speci men Type: BLOOD SPECIMENOrdering Facility: [facility] Address: [address] [place] [address] Performed By: #### 2 4323-8 ####[facility] LABIA [id number] [place] [address] Sodium [Moles/Vol] 122 mmol/L Low 136-144 [facility] Comment on above: Order Comment: Speci men Type: BLOOD SPECIMENOrdering Facility: [facility] Address: [address] [place] [address] Result Comment: RECH ECKED JT Performed By: #### 2 4323-8 ####[facility] LABIA [id number] [place] [address] Urea nitrogen [Mass/Vol] 8 mg/dL Normal 7-21 [facility] Comment on above: Order Comment: Speci men Type: BLOOD SPECIMENOrdering Facility: [facility] Address: [address] [place] [address] Performed By: #### 2 4323-8 ####[facility] LABIA [id number] [place] [address] Seth 04-24-2024 CNPN Telephone (HEMASA) SVETLANA ADRIAN ([id number]) 1955 F Date Time Provider Department 04/24/24 [...] Fully Assessed Reason for Visit: Lab Orders [3768] Primary Visit Diagnosis:Malignant neoplasm of overlapping sites of bladder (HCC) [C67.8] Order(s):COMPLETE BLOOD COUNT AND DIFFERENTIAL [SQCBCDIF] Order #: [id number] FUTURE COMPREHENSIVE METABOLIC PANEL [SQCMP] Order #: [id number] FUTURE Prescriptions as of 04/24/2024 - ondansetron [...] Status:Closed by LEE DUNN on 04/24/24 Normal [facility] CNPNon 04-22-2024 CNPN Telephone ([employer]) SVETLANA ADRIAN ([id number]) 1955 F Date Time Provider Department 04/22/24 ASHLEY MARTINEZ During your visit today, we recorded the following information about you: Ashley Martinez RN 04/22/2024 3:57 PM Signed Update on patient from last week. Pt was in 04/18 for D1C1. CrCl [address] Cabello in your absence. Orders were given to hold Cisplatin that day. Pt received IVF and Lincoln only. Ashley Martinez RN Allergies As of [...] Encounter Status:Closed by ASHLEY MARTINEZ on 05/06/24 [facility] SVETLANA ADRIAN ([id number]) 1955 F Date Time Provider Department 04/22/24 [...] activity. Pt has h/o COPD. 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 and Cough: Yes; productive white, yellow sputum [...] Status:Closed by SERGEI CARPENTER on 04/23/[address] [facility] metabolic 2000 panelOrdered By: Dante Brooks on 04-18-2024 Albumin [Mass/Vol] 3.9 g/dL 3.9 - 4.9 g/dL [facility] ALP [Catalytic activity/Vol] 75 U/L 34 - 123 U/L [facility] ALT [Catalytic activity/Vol] 21 U/L 7 - 38 U/L [facility] Anion gap [Moles/Vol] 11 mmol/L 8 - 15 mmol/L [facility] AST [Catalytic activity/Vol] [facility] Comment on above: Unable to assay. Spe cimen significantly hemolyzed. Bilirubin [Mass/Vol] 0.3 mg/dL 0.2 - 1 .3 mg/dL [facility] Calcium [Mass/Vol] 9.2 mg/dL 8.5 - 10. 2 mg/dL [facility] Chloride [Moles/Vol] 89 mmol/L Low 98 - 10 7 mmol/L [facility] CO2 [Moles/Vol] 24 mmol/L 22 - 30 mmol/L [facility] Creatinine [Mass/Vol] 0.68 mg/dL 0.58 - 0.96 mg/dL [facility] GFR/1.73 sq M.predicted among non-blacks MDRD (S/P/Bld) [Vol rate/Area] 94 mL/min/{1.73_m2} - PINF [facility] Comment on above: Estimated Glomerular Filtration [...] 113 mg/dL High 74 - 99 mg/dL [facility] Comment on above: The [place] Diab[employer] s Association (ADA) provides guidance for [...] Standards of Medical Care in Diabetes 2016, [place] Diabetes Association. Diabetes Care. 2016.39(Suppl 1). Interpretation and review of laboratory results Abnormal [facility] Potassium [Moles/Vol] 3.7 mmol/L 3.7 - 5.1 mmol/L [facility] Protein [Mass/Vol] 5.8 g/dL Low 6.3 - 8.0 g/dL [facility] Sodium [Moles/Vol] 124 mmol/L Low 136 - 144 mmol/L [facility] Urea nitrogen [Mass/Vol] 9 mg/dL 7 - 21 mg/dL [facility] Comprehensive metabolic 2000 panelon 04-18-2024 Albumin [Mass/Vol] 3.9 g/dL Normal 3.9-4.9 [facility] Comment on above: Order Comment: Speci men Type: BLOOD SPECIMENOrdering Facility: [facility] Address: [address] [place] [address] Performed By: #### 2 4323-8 ####[facility] LABCLIA [id number] [place] [address] ALP [Catalytic activity/Vol] 75 U/L Normal 34-123 [facility] Comment on above: Order Comment: Milindi men Type: BLOOD SPECIMENOrdering Facility: [facility] Address: [address] [place] [address] Performed By: #### 2 4323-8 ####[facility] LABCLIA [id number] [place] [address] ALT [Catalytic activity/Vol] 21 U/L Normal 7-38 [facility] Comment on above: Order Comment: Shantel walters Type: BLOOD SPECIMENOrdering Facility: [facility] Address: [address] [place] [address] Performed By: #### 2 4323-8 ####[facility] LABCLIA [id number] [place] [address] Anion gap [Moles/Vol] 11 mmol/L Normal 8-15 [facility] Comment on above: Order Comment: Speci men Type: BLOOD SPECIMENOrdering Facility: [facility] Address: [address] [place] [address] Performed By: #### 2 4323-8 ####[facility] LABCLIA [id number] [place] [address] AST [Catalytic activity/Vol] Normal [facility] Comment on above: Order Comment: Speci men Type: BLOOD SPECIMENOrdering Facility: [facility] Address: [address] [place] [address] Result Comment: Unab le to assay. Specimen significantly hemolyzed. Performed By: #### 2 4323-8 ####[facility] LABCLIA [id number] [place] [address] Bilirubin [Mass/Vol] 0.3 mg/dL Normal 0.2-1.3 [facility] Comment on above: Order Comment: Speci men Type: BLOOD SPECIMENOrdering Facility: [facility] Address: [address] [place] [address] Performed By: #### 2 4323-8 ####[facility] LABCLIA [id number] [place] [address] Calcium [Mass/Vol] 9.2 mg/dL Normal 8.5-10.2 [facility] Comment on above: Order Comment: Speci men Type: BLOOD SPECIMENOrdering Facility: [facility] Address: [address] [place], [place] [address] Performed By: #### 2 4323-8 ####[facility] LABCLIA [id number] [place] [address] Chloride [Moles/Vol] 89 mmol/L Low 98-107 [facility] Comment on above: Order Comment: Speci men Type: BLOOD SPECIMENOrdering Facility: [facility] Address: [address] [place] [address] Performed By: #### 2 4323-8 ####[facility] LABCLIA [id number] [place] [address] CO2 [Moles/Vol] 24 mmol/L Normal 22-30 [facility] Comment on above: Order Comment: Speci men Type: BLOOD SPECIMENOrdering Facility: [facility] Address: [address] [place] [address] Performed By: #### 2 4323-8 ####[facility] LABCLIA [id number] [place] [address] Creatinine [Mass/Vol] 0.68 mg/dL Normal 0.58-0.96 [facility] Comment on above: Order Comment: Speci men Type: BLOOD SPECIMENOrdering Facility: [facility] Address: [address] [place] [address] Performed By: #### 2 4323-8 ####[facility] LABCLIA [id number] [place] [address] Creatinine and Glomerular filtration rate.predicted panel (S/P/Bld) 94 mL/min/1.73m??? Normal >=60 [facility] Comment on above: Order Comment: Speci men Type: BLOOD SPECIMENOrdering Facility: [facility] Address: [address] [place] [address] Result Comment: Tosin mated Glomerular Filtration Rate [...] actual GFR. Performed By: #### 2 4323-8 ####[facility] LABCLIA [id number] [place] [address] Glucose [Mass/Vol] 113 mg/dL High 74-99 [facility] Comment on above: Order Comment: Speci men Type: BLOOD SPECIMENOrdering Facility: [facility] Address: [address] [place] [address] Result Comment: The [place] Diabetes Association (ADA) provides guidance for cutoff [...] Standards of Medical Care in Diabetes 2016, [place] [employer]. Diabetes Care. 2016.39(Suppl 1). Performed By: #### 2 4323-8 ####[facility] LABCLIA [id number] [place] [address] Potassium [Moles/Vol] 3.7 mmol/L Normal 3.7-5.1 [facility] Comment on above: Order Comment: Milindi men Type: BLOOD SPECIMENOrdering Facility: [facility] Address: [address] [place], [place] [address] Performed By: #### 2 4323-8 ####[facility] LABCLIA [id number] [place] [address] Protein [Mass/Vol] 5.8 g/dL Low 6.3-8.0 [facility] Comment on above: Order Comment: Speci men Type: BLOOD SPECIMENOrdering Facility: [facility] Address: [address] [place] [address] Performed By: #### 2 4323-8 ####[facility] LABCLIA [id number] [place] [address] Sodium [Moles/Vol] 124 mmol/L Low 136-144 [facility] Comment on above: Order Comment: Speci men Type: BLOOD SPECIMENOrdering Facility: [facility] Address: [address] [place] [address] Performed By: #### 2 4323-8 ####[facility] LABCLIA [id number] [place] [address] Urea nitrogen [Mass/Vol] 9 mg/dL Normal 7-21 [facility] Comment on above: Order Comment: Speci men Type: BLOOD SPECIMENOrdering Facility: [facility] Address: [address] [place] [address] Performed By: #### 2 4323-8 ####[facility] [place] [facility] LABCLIA [id number] [place] [address] Seth 04-10-2024 CNPN Telephone (HEMASA) SVETLANA ADRIAN ([id number]) 1955 F Date Time Provider Department 04/10/24 SERGEI CARPENTER During your visit today, we recorded the following information about you: Sergei Carpenter RN 04/10/2024 12:39 PM Signed Pt would like to meet w/ photographs curator. Order pended. ALVARO Mohan Vivek, MD 04/10/2024 [...] Fully Assessed Reason for Visit: Care Coordination [7256] Cmt: Nutrition Referral Primary Visit Diagnosis:Malignant neoplasm of overlapping sites of bladder (HCC) [C67.8] Order(s):CONSULT TO ONCOLOGY NUTRITION [[id number]] Order #: [id number]: 1 FUTURE Prescriptions as of 04/11/2024 - [...] Encounter Status:Closed by RD LEBLANC on 04/11/24 [facility] Seth 04-08-2024 DERIKN Telephone (HEMASA) SVETLANA ADRIAN ([id number]) 1955 F Date Time Provider Department 04/08/24 [...] Fully Assessed Reason for Visit: Care Coordination [7430] Cmt: Antiemetics Order(s):prochlorpera zine (COMPAZINE) 10 mg [...] Encounter Status:Closed by LEE DUNN on 04/08/24 [facility] Telephone (SDOPRX) SVETLANA ADRIAN Key ([id number]) 1955 F Date Time Provider Department 04/08/24 PAMELA PACE SDOPRX During your visit today, we recorded the following information about you: Pamela Pace [facility] 04/08/2024 1:39 PM Signed Patient reports [...] Fully Assessed Reason for Visit: Drug/Drug Interaction [9329] Cmt: Prochlorperazine/Pram ipexole Prescriptions as of 04/10/2024 [...] Status:Closed by PAMELA PACE on 04/10/24 Normal [facility] CBC W Auto Differential pane l (Bld)on 04-07-2024 Basophils (Bld) [#/Vol] 0.06 10*3/uL [facility] Basophils/100 WBC (Bld) 0.6 % [facility] Differential cell count method Nom (Bld) Auto [facility] Eosinophils (Bld) [#/Vol] 0.22 10*3/uL [facility] Eosinophils/100 WBC (Bld) 2.4 % [facility] Erythrocyte distribution width (RBC) [Ratio] 15.6 % High 11.5 - 15.0 % [facility] Hematocrit (Bld) [Volume fraction] 38.1 % 36.0 - 46.0 % [facility] Hemoglobin (Bld) [Mass/Vol] 13.1 g/dL 11.5 - 15.5 g/dL [facility] Immature granulocytes (Bld) [#/Vol] 0.05 10*3/[facility]L [facility] Immature granulocytes/100 WBC (Bld) 0.5 % [facility] Interpretation and review of laboratory results Abnormal [facility] Lymphocytes (Bld) [#/Vol] 1.31 10*3/uL [facility] Lymphocytes/100 WBC (Bld) 14.1 % [facility] MCH (RBC) [Entitic mass] 28.4 pg 26.0 - 34.0 pg [facility] MCHC (RBC) [Mass/Vol] 34.4 g/dL 30.5 - 36.0 g/dL [facility] MCV (RBC) [Entitic vol] 82.6 fL 80.0 - 100.0 fL [facility] Monocytes (Bld) [#/Vol] 0.85 10*3/uL NINF [facility] Monocytes/100 WBC (Bld) 9.1 % [facility] Neutrophils (Bld) [#/Vol] 6.81 10*3/uL [facility] Neutrophils/100 WBC (Bld) 73.3 % [facility] Nucleated RBC (Bld) [#/Vol] NINF [facility] Nucleated RBC/100 WBC (Bld) [Ratio] 0.0 % /100 WBC [facility] Platelet mean volume (Bld) [Entitic vol] 8.1 fL Low 9.0 - 12.7 fL [facility] Platelets (Bld) [#/Vol] 395 10*3/uL [facility] RBC (Bld) [#/Vol] 4.61 10*6/uL 3.90 - 5.2 0 m/uL [facility] WBC (Bld) [#/Vol] 9.30 10*3/uL [facility] Basophils (Bld) [#/Vol] 0.06 10*3/uL Normal <0.11 [facility] Comment on above: Order Comment: Speci men Type: BLOOD SPECIMENOrdering Facility: [facility] Address: [address] [place] [address] Performed By: #### 5 7021-8 ####[facility] LABCLIA [id number] [place] [address] Basophils/100 WBC (Bld) 0.6 % Normal [facility] Comment on above: Order Comment: Speci men Type: BLOOD SPECIMENOrdering Facility: [facility] Address: [address] [place] [address] Performed By: #### 5 7021-8 ####[facility] LABCLIA [id number] [place] [address] Differential cell count method Nom (Bld) Auto Normal [facility] Comment on above: Order Comment: Speci men Type: BLOOD SPECIMENOrdering Facility: [facility] Address: [address] [place] [address] Performed By: #### 5 7021-8 ####[facility] LABCLIA [id number] [place] [address] Eosinophils (Bld) [#/Vol] 0.22 10*3/uL Normal <0.46 [facility] Comment on above: Order Comment: Speci men Type: BLOOD SPECIMENOrdering Facility: [facility] Address: [address] [place] [address] Performed By: #### 5 7021-8 ####[facility] LABCLIA [id number] [place] [address] Eosinophils/100 WBC (Bld) 2.4 % Normal [facility] Comment on above: Order Comment: Speci men Type: BLOOD SPECIMENOrdering Facility: [facility] Address: [address] [place] [address] Performed By: #### 5 7021-8 ####[facility] LABCLIA [id number] [place] [address] Erythrocyte distribution width (RBC) [Ratio] 15.6 % High 11.5-15.0 [facility] Comment on above: Order Comment: Speci men Type: BLOOD SPECIMENOrdering Facility: [facility] Address: [address] [place] [address] Performed By: #### 5 7021-8 ####[facility] LABCLIA [id number] [place] [address] Hematocrit (Bld) [Volume fraction] 38.1 % Normal 36.0-46.0 [facility] Comment on above: Order Comment: Speci men Type: BLOOD SPECIMENOrdering Facility: [facility] Address: [address] [place] [address] Performed By: #### 5 7021-8 ####[facility] LABCLIA [id number] [place] [address] Hemoglobin (Bld) [Mass/Vol] 13.1 g/dL Normal 11.5-15.5 [facility] Comment on above: Order Comment: Speci men Type: BLOOD SPECIMENOrdering Facility: [facility] Address: [address] [place] [address] Performed By: #### 5 7021-8 ####[facility] LABCLIA [id number] [place] [address] Immature granulocytes (Bld) [#/Vol] 0.05 10*3/uL Normal <0.10 [facility] Comment on above: Order Comment: Speci men Type: BLOOD SPECIMENOrdering Facility: [facility] Address: [address] [place] [address] Performed By: #### 5 7021-8 ####[facility] LABCLIA [id number] [place] [address] Immature granulocytes/100 WBC (Bld) 0.5 % Normal [facility] Comment on above: Order Comment: Speci men Type: BLOOD SPECIMENOrdering Facility: [facility] Address: [address] [place] [address] Performed By: #### 5 7021-8 ####[facility] LABCLIA [id number] [place] [address] Lymphocytes (Bld) [#/Vol] 1.31 10*3/uL Normal 1.00-4.00 [facility] Comment on above: Order Comment: Speci men Type: BLOOD SPECIMENOrdering Facility: [facility] Address: [address] [place] [address] Performed By: #### 5 7021-8 ####[facility] LABCLIA [id number] [place] [address] Lymphocytes/100 WBC (Bld) 14.1 % Normal [facility] Comment on above: Order Comment: Speci men Type: BLOOD SPECIMENOrdering Facility: [facility] Address: [address] [place] [address] Performed By: #### 5 7021-8 ####[facility] LABCLIA [id number] [place] [address] MCH (RBC) [Entitic mass] 28.4 pg Normal 26.0-34.0 [facility] Comment on above: Order Comment: Speci men Type: BLOOD SPECIMENOrdering Facility: [facility] Address: [address] [place] [address] Performed By: #### 5 7021-8 ####[facility] LABCLIA [id number] [place] [address] MCHC (RBC) [Mass/Vol] 34.4 g/dL Normal 30.5-36.0 [facility] Comment on above: Order Comment: Speci men Type: BLOOD SPECIMENOrdering Facility: [facility] Address: [address] [place] [address] Performed By: #### 5 7021-8 ####[facility] LABIA [id number] [place] [address] MCV (RBC) [Entitic vol] 82.6 fL Normal 80.0-100.0 [facility] Comment on above: Order Comment: Speci men Type: BLOOD SPECIMENOrdering Facility: [facility] Address: [address] [place] [address] Performed By: #### 5 7021-8 ####[facility] LABIA [id number] [place] [address] Monocytes (Bld) [#/Vol] 0.85 10*3/uL Normal <0.87 [facility] Comment on above: Order Comment: Speci men Type: BLOOD SPECIMENOrdering Facility: [facility] Address: [address] [place] [address] Performed By: #### 5 7021-8 ####[facility] LABIA [id number] [place] [address] Monocytes/100 WBC (Bld) 9.1 % Normal [facility] Comment on above: Order Comment: Speci men Type: BLOOD SPECIMENOrdering Facility: [facility] Address: [address] [place] [address] Performed By: #### 5 7021-8 ####[facility] LABCLIA [id number] [place] [address] Neutrophils (Bld) [#/Vol] 6.81 10*3/uL Normal 1.45-7.50 [facility] Comment on above: Order Comment: Speci men Type: BLOOD SPECIMENOrdering Facility: [facility] Address: [address] [place] [address] Performed By: #### 5 7021-8 ####[facility] LABCLIA [id number] [place] [address] Neutrophils/100 WBC (Bld) 73.3 % Normal [facility] Comment on above: Order Comment: Speci men Type: BLOOD SPECIMENOrdering Facility: [facility] Address: [address] [place] [address] Performed By: #### 5 7021-8 ####[facility] LABCLIA [id number] [place] [address] Nucleated RBC (Bld) [#/Vol] 10*3/uL Normal <0.01 [facility] Comment on above: Order Comment: Speci men Type: BLOOD SPECIMENOrdering Facility: [facility] Address: [address] [place] [address] Performed By: #### 5 7021-8 ####[facility] LABCLIA [id number] [place] [address] Nucleated RBC/100 WBC (Bld) [Ratio] 0.0 /100 WBC Normal [facility] Comment on above: Order Comment: Speci men Type: BLOOD SPECIMENOrdering Facility: [facility] Address: [address] [place] [address] Performed By: #### 5 7021-8 ####[facility] LABCLIA [id number] [place] [address] Platelet mean volume (Bld) [Entitic vol] 8.1 fL Low 9.0-12.7 [facility] Comment on above: Order Comment: Speci men Type: BLOOD SPECIMENOrdering Facility: [facility] Address: [address] [place] [address] Performed By: #### 5 7021-8 ####[facility] LABCLIA [id number] [place] [address] Platelets (Bld) [#/Vol] 395 10*3/uL Normal 150-400 [facility] Comment on above: Order Comment: Speci men Type: BLOOD SPECIMENOrdering Facility: [facility] Address: [address] [place] [address] Performed By: #### 5 7021-8 ####[facility] LABIA [id number] [place] [address] RBC (Bld) [#/Vol] 4.61 10*6/uL Normal 3.90-5.20 [facility] Comment on above: Order Comment: Speci men Type: BLOOD SPECIMENOrdering Facility: [facility] Address: [address] [place] [address] Performed By: #### 5 7021-8 ####[facility] LABIA [id number] [place] [address] WBC (Bld) [#/Vol] 9.30 10*3/uL Normal 3.70-11.00 [facility] Comment on above: Order Comment: Speci men Type: BLOOD SPECIMENOrdering Facility: [facility] Address: [address] [place] [address] Performed By: #### 5 7021-8 ####[facility] LABIA [id number] [place] [address] Comprehensive metabolic 2000 panelon 04-07-2024 Albumin [Mass/Vol] 3.9 g/dL Normal 3.9-4.9 [facility] Comment on above: Order Comment: Speci men Type: BLOOD SPECIMENOrdering Facility: [facility] Address: [address] [place] [address] Performed By: #### 2 4323-8 ####[facility] LABCLIA [id number] [place] [address] [place] ALP [Catalytic activity/Vol] 67 U/L Normal 34-123 [facility] Comment on above: Order Comment: Speci men Type: BLOOD SPECIMENOrdering Facility: [facility] Address: [address] [place] [address] Performed By: #### 2 4323-8 ####[facility] LABCLIA [id number] [place] [address] [place] ALT [Catalytic activity/Vol] 20 U/L Normal 7-38 [facility] Comment on above: Order Comment: Speci men Type: BLOOD SPECIMENOrdering Facility: [facility] Address: [address] [place] [address] Performed By: #### 2 4323-8 ####[facility] LABCLIA [id number] [place] [address] [place] Anion gap [Moles/Vol] 11 mmol/L Normal 8-15 [facility] Comment on above: Order Comment: Speci men Type: BLOOD SPECIMENOrdering Facility: [facility] Address: [address] [place] [address] Performed By: #### 2 4323-8 ####[facility] LABCLIA [id number] [place] [address] [place] AST [Catalytic activity/Vol] 23 U/L Normal 13-35 [facility] Comment on above: Order Comment: Speci men Type: BLOOD SPECIMENOrdering Facility: [facility] Address: [address] [place] [address] Performed By: #### 2 4323-8 ####[facility] LABCLIA [id number] [place] [address] [place] Bilirubin [Mass/Vol] 0.3 mg/dL Normal 0.2-1.3 [facility] Comment on above: Order Comment: Speci men Type: BLOOD SPECIMENOrdering Facility: [facility] Address: [address] [place] [address] Performed By: #### 2 4323-8 ####[facility] LABCLIA [id number] [place] [address] [place] Calcium [Mass/Vol] 9.5 mg/dL Normal 8.5-10.2 [facility] Comment on above: Order Comment: Speci men Type: BLOOD SPECIMENOrdering Facility: [facility] Address: [address] [place] [address] Performed By: #### 2 4323-8 ####[facility] LABCLIA [id number] [place] [address] [place] Chloride [Moles/Vol] 87 mmol/L Low 98-107 [facility] Comment on above: Order Comment: Speci men Type: BLOOD SPECIMENOrdering Facility: [facility] Address: [address] [place] [address] Performed By: #### 2 4323-8 ####[facility] LABCLIA [id number] [place] [address] [place] CO2 [Moles/Vol] 26 mmol/L Normal 22-30 [facility] Comment on above: Order Comment: Speci men Type: BLOOD SPECIMENOrdering Facility: [facility] Address: [address] [place] [address] Performed By: #### 2 4323-8 ####[facility] LABCLIA [id number] [place] [address] [place] Creatinine [Mass/Vol] 0.79 mg/dL Normal 0.58-0.96 [facility] Comment on above: Order Comment: Speci men Type: BLOOD SPECIMENOrdering Facility: [facility] Address: [address] [place] [address] Performed By: #### 2 4323-8 ####[facility] LABCLIA [id number] [place] [address] [place] Creatinine and Glomerular filtration rate.predicted panel (S/P/Bld) 81 mL/min/1.73m??? Normal >=60 [facility] Comment on above: Order Comment: Shantel walters Type: BLOOD SPECIMENOrdering Facility: [facility] Address: [address] [place] [address] Result Comment: Tosin mated Glomerular Filtration Rate [...] actual GFR. Performed By: #### 2 4323-8 ####[facility] LABCLIA [id number] [place] [address] [place] Glucose [Mass/Vol] 102 mg/dL High 74-99 [facility] Comment on above: Order Comment: Shantel walters Type: BLOOD SPECIMENOrdering Facility: [facility] Address: [address] [place] [address] Result Comment: The [place] Diabetes Association (ADA) provides guidance for cutoff [...] Standards of Medical Care in Diabetes 2016, [place] [employer]. Diabetes Care. 2016.39(Suppl 1). Performed By: #### 2 4323-8 ####[facility] LABCLIA [id number] [place] [address] [place] Potassium [Moles/Vol] 3.9 mmol/L Normal 3.7-5.1 [facility] Comment on above: Order Comment: Speci men Type: BLOOD SPECIMENOrdering Facility: [facility] Address: [address] [place] [address] Performed By: #### 2 4323-8 ####[facility] LABCLIA [id number] [place] [address] [place] Protein [Mass/Vol] 6.1 g/dL Low 6.3-8.0 [facility] Comment on above: Order Comment: Speci men Type: BLOOD SPECIMENOrdering Facility: [facility] Address: [address] [place] [address] Performed By: #### 2 4323-8 ####[facility] LABIA [id number] [place] [address] [place] Sodium [Moles/Vol] 124 mmol/L Low 136-144 [facility] Comment on above: Order Comment: Speci men Type: BLOOD SPECIMENOrdering Facility: [facility] Address: [address] [place] [address] Performed By: #### 2 4323-8 ####[facility] LABIA [id number] [place] [address] [place] Urea nitrogen [Mass/Vol] 8 mg/dL Normal 7-21 [facility] Comment on above: Order Comment: Speci men Type: BLOOD SPECIMENOrdering Facility: [facility] Address: [address] [place] [address] Performed By: #### 2 4323-8 ####[facility] LABIA [id number] [place] [address] [place] CNOVSPon 04-04-2024 CNOVSP Visit (SP) Office (HEMASA) SVETLANA ADRIAN ([id number]) 1955 F Date Time Provider Department 04/04/24 4:00 PM LEE DNUN During your visit today, we recorded the following information about you: Temperature Pulse Respiration Blood pressure 97.4 degrees 96/minute 16/minute 125/77 Weight 49.2 kg Lee Dunn MD 04/07/2024 7:53 AM Signed NAME: Svetlana Adrian CLINIC NO.: [id number] DATE OF SERVICE: April 04, 2024 (Sagar) Referring Provider: Lin Dalton MD Consultation requested by Dr. Dalton for an opinion regarding Ms. Svetlana Adrian, and my final recommendations will be communicated back to the requesting physician by way of shared medical record or letter via US mail. Additional Clinicians involved in Svetlana Ardian's care: Alejandro Jeanie DIAGNOSIS: Muscle invasive bladder [...] Bladder mass, transurethral resection: Dr. Dalton at [facility] - High-grade urothelial carcinoma with lamina propria [...] neoadjuvant chemotherapy with gemcitabine + cisplatin vs. Lincoln / Carbo She denies use of supplemental [...] solution 0 (more content not included)... Normal [facility] Seth 04-04-2024 [facility] Telephone ([facility]) SVETLANA ADRIAN ([id number]) 1955 F Date Time Provider Department 04/04/24 [...] Dagmar and were notified of these appts. Rd Leblanc 04/10/2024 4:32 PM Signed JOHN: Patient [...] days.Disp: 10 tabletRfl: 0 IR PORTOCATH PLACEMENT [[id number]] Order #: [id number] Prescriptions as of 04/11/2024 - sodium chloride [...] Encounter Status:Closed by RD LEBLANC on 04/09/24 [facility] CNOVon 03-19-2024 CNOV Office Visit (URFMOB ) SVETLANA ADRIAN ([id number]) 1955 F Date Time Provider Department 03/19/24 1:30 PM ALEJANDRO WARE During your visit today, we recorded the following information about you: Pulse Blood pressure 81/minute 116/61 Alejandro Ware MD 03/19/2024 1:21 PM Addendum [facility] NEW PATIENT HISTORY AND [...] talked about medical complications, such as cardiac (IA, etc), respiratory (pneumonia, etc), renal (Acute kidney [...] of cancer (more content not included)... Normal [facility] C Urineon 03-02-2024 Bacteria identified Cx [...] ESBL=Extended spectrum beta-lactamase, R=Resistant, TFG=Thymidine-depende nt strain, ABRRON=Beta-lactamase positive, [place]=mcg/m;(mg/L), S*=Predicted susceptible interp, R*=Predicted resistant [...] Locations R1: This test was performed at: [facility], [address] [place] [address], [address]- , , [facility] Comment on above: Performed By: #### 2 [id number] #### [facility] [address] [place] [address] Ambulatory Visit Summaryon 0 02-29-2024 Ambulatory Visit [...] Someone Will Contact You Regarding These Appointments [facility] External Ambulatory Referral, Service not offered at [facility], Urology, Dr. Ware @ [facility], 02/29/24 9:34:00 EDT, Bladder cancer [...] to move forward with radical cystectomy at [facility]. -Will refer to Dr. Ware at [facility] for robotic radical cystectomy. -Start Zofran 4mg q6hrs prn for nausea/vomiting 2. UTI (urinary tract infection) (N39.0: Urinary tract infection, site not specified) Recently went to [facility], after TURBT, due to UTI, bladder pain radiating to back. Took oxybutynin but pain didn't improve so presented to ER. Currently taking cipro, UCx pseudomonas is sensitive to it. force variation equipment tender around suprapubic region. Azo helps slightly. Symptoms improving CT AP 01/30/24 at [facility]- bladder wall thickening/ possible cystitis (on review, likely from malignancy/recent TURBT, no evidence of perforation or hydro). UA today shows small blood, + nitrates, and large leuks. Burning starting to recur. Recommended cranberry supplement for UTI prevention. Discussed starting estrogen cream to help with vaginal atrophy and UTI prevention. -Urine sent for cul (more content not included)... Normal [facility] Comment on above: Result Comment: Elec tronically Signed By: iLn Dalton MD\.br\Date and Time Signed: 02/29/24 10:06 EDT\.br\Electronically Co-Signed By: Myrna Goodrich\.br\Date and Time Co-Signed: 02/29/24 09:46 EDT [place] 02-04-2024 Screens [id number] .[id number] Normal [facility] Pathology Noteon 02-01-2024 Pathology Note [id number] .00TIFF Normal [facility] Patient Educationon 02-01-20 Patient Education Oncology [...] Follow these instructions at home: ? Take meho-tug-ryrhfnu and prescription medicines only as told by [...] important. Where to find more information ? [place] [employer] (ACS): cancer.org ? National Cancer [place] (NCI): cancer.gov Contact a health care provider [...] wi (more content not included)... [facility] Provider Letteron 02-01-2024 Provider Letter February 01, 2024 SVETLANA ADRIAN [address] [place] [address] : 1955 To Whom It May Concern, Please excuse Sergei Kaylah from patient from work due today 02/01/2024 due to accompanying her mother to and from her appointment. If you have any questions feel free to reach out at the number listed below. Sincerely, [facility] [address] [address] [facility] Urology Office/Clinic Noteon 02-01-2024 Urology Office/Clinic Note Chief Complaint Pt is here for PO TURBT HPI Staff F/u to review path report from TURBT done 01/23/24. Last seen in office 01/17/24. Dx: bladder mass, gross hematuria, former smoker. CT AP w con and CXR done 01/17/24 at [facility]. S/p cysto done 01/21/24. Dysuria: mild Incomplete [...] chemotherapy. We discussed that there are no hawg-xg-mtzz trials comparing cystectomy with bladder preservation therapy. [...] infection, site not specified) Recently went to [facility], after TURBT, due to UTI, bladder pain radiating to back. Took oxybutynin but pain didn't improve so presented to ER. Currently mirta (more content not included)... [facility] Comment on above: Result Comment: Elec tronically Signed By: Sha SINGLETARY, Lin Caldera\.br\Date and Time Signed: 02/01/24 16:30 EDT\.br\Electronically Co-Signed By: Sana Patricia\.br\Date and Time Co-Signed: 02/01/24 14:04 EDT Lab Reportson 01-24-2024 Lab Reports [id number] #1.00TIFF [facility] Operative Reporton Operative Report [id number]#1. 00TIFF [facility] RAD - MISCon 01-24-2024 RAD - MISC [id number]#1 .00TIFF [facility] RAD MISC [id number]#1 .00TIFF [facility] RAD - MISC [id number]#1. 00TIFF [facility] Clay 01-23-2024 L Specimen: [id number] Received: 01/24/24 Status: DAKOTAH Cramer Num: [id number] Spec Type: Surgical Subm Dr: Lin Dalton MD Tissues: A Urinary Bladder - TUR (BLADDER TUMORS) Procedures: HE/10, Gross/Micro L5 Age/ Patient Sex Location Account Attending Physician Svetlana Adrian 68/F LABELL [id number] Lin Dalton MD SPEC NUM: [id number] RECD: 01/24/24 STATUS: DAKOTAH CRAMER NUM: [id number] JULIA: 01/23/[address]: Lin Dalton MD ENTERED: 01/24/24-1310 [facility] DR: Kevin Doe SPEC TYPE: Surgical [...] representatively submitted in cassettes A1?A5. CPT Codes 02296 -------- -------- Specimen: [id number] Received: 01/24/24 Status: DAKOTAH Rena Num: [id number] Spec Type: Surgical Subm Dr: Lin Dalton MD Tissues: A Urinary Bladder - TUR (BLADDER TUMORS) Procedures: , Gross/Micro L5 -------- Patient: Svetlana Adrian [id number] (Continued) -------- Signed (signature on file) Pasquale Brumfield MD 01/30/[address] [facility] Consent for Procedure/Surger yon 01-22-2024 Consent for Procedure/Surgery [id number]#1. 00TIFF Normal [facility] Urine Cytology ( Labs)on 01-22-2024 Microscopic exam Cytology (U) [Interp] Diagnosis Info Invalid Interpretation Code [facility] Comment on above: Result Comment: A:Ur ine,Urine:Voided Interpretation - MicroScopic Description - Adequacy - Gross Description Site ID:A color Yellow fixative Alcohol Specimen designated Urine received in alcohol preservative and labeled with the patient?s name, consists of 90ml slightly cloudy yellow fluid. Electronically signed by : on: 01/22/2024 15:40:59 Performed By: #### 1 [id number] #### [address] [address] Consent for Procedure/Surger yon 01-21-2024 Consent for Procedure/Surgery [id number]#1 .00TIFF Normal [facility] Consent for Procedure/Surgery [id number]#1. 00TIFF Normal [facility] Consent for Treatmenton 01-11 Consent for Treatment [id number]#1 .00TIFF Normal [facility] Inpatient Patient Summaryon 01-21-2024 Inpatient Patient Summary [place] [id number] Clinical Summary Person Information Name: SVETLANA ADRIAN Age: 68 Years : 1955 Sex: Female PCP: NONE, XXXX Marital Status: Race: White Ethnicity: Non- or Language: Moldovan Visit Id: Visit Reason: BLADDER MASS Speciality: Acuity: Enc Type: Outpatient Med Service: Surgery Arrival: 01/21/2024 08:15:39 Discharge: Dispo Type: Address: [address] [place] [address] [address] [facility] [id number] Provider Notes: Diagnosis: Bladder mass; Gross hematuria [...] - Cystoscopy Discharge Instructions (CUSTOM) [facility] IntraOperative Documentson 0 01-21-2024 IntraOperative Documents [id number]#1 .00TIFF [facility] Main OR Intraoperative Recor don 01-21-2024 Main OR Intraoperative Record IntraOp Document Type FTURO Summary Primary Physician: Lin Dalton MD Finalized Date/Time: 01/21/24 08:55:32 Pt. Name: DAGMAR ADRIANCELINE Ceron/Sex: 1955 Female Med Rec #: [id number] Physician: Lin Dalton MD Financial #: [id number] Pt. Type: O Room/Bed: / Admit/Disch: 01/21/24 [...] Laura C Role Performed Surgeon - Primary Architecture Drafter - Primary Scrub - Primary Time In 01/21/24 08:37:00 01/21/24 08:37:00 01/21/24 08:37:00 Time Out 01/21/24 08:53:00 01/21/24 08:53:00 01/21/24 08:53:00 Procedure CYSTOSCOPY LOCAL(.) CYSTOSCOPY LOCAL(.) CYSTOSCOPY LOCAL(.) Comments Last Modified By: Jessica Goordich Kelsie E Burgderfer, Kelsie E 01/21/24 08:53:03 [...] Prep Agents Betadine Solution Skin. Condition Intact, [place], Warm, and Description n/a Dry Additional None [...] 01/21/24 08:55 Jessica Goodrich 01/21/24 08:55 Normal [facility] Main OR Preoperative Recordo n 01-21-2024 Main OR Preoperative Record Holding Area Document Type FTURO Summary Primary Physician: Lin Dalotn MD Finalized Date/Time: 01/21/24 08:30:18 Pt. Name: SVETLANA ADRIAN Key De JesusB./Sex: 1955 Female Med Rec #: [id number] Physician: Lin Dalton MD Financial #: [id number] Pt. Type: O Room/Bed: / Admit/Disch: 01/21/24 [...] SCOTT Fischer RN, Ruthann 01/21/24 08:30 Normal [facility] Operative Reporton Operative Report Patient: SVETLANA ADRIAN Age: 68 years Sex: Female : 1955 Associated Diagnoses: None Author: Lin Dalton MD Procedure Operative Information Details: Date/ Time: 01/21/2024 08:52:00. Pre-Op Dx: Gross hematuria (OTR97-YX R31.0, Discharge, Medical), Bladder mass (GXR84-AO N32.89, Discharge, Medical). Post-Op Dx: Same. Anesthesia [...] mass. Risks/benefits again discussed. CTU 01/17/24 at [facility] - 4.8 x 2.1 cm irregular left bladder wall mass, appears to be continuous with muscle on personal review. No upper tract filling defects, no lymphadenopathy. CXR - no mets. COPD changes (hyperexpansive). Normal [facility] Comment on above: Result Comment: Elec tronically Signed By: Lin Dalton MD\.br\Date and Time Signed: 01/21/24 08:58 EDT Outpatient Surgery Discharge Instructionon 01-21-2024 Outpatient Surgery Discharge Instruction [place] [id number] Patient Discharge Instructions PERSON INFORMATION Name: SVETLANA [...] serve you. Thank you for choosing [facility] Normal [facility] ED Note-Physicianon 01-18-20 ED Note-Physician [id number]#1 .00TIFF Normal [facility] RAD - CT Reporton 01-18-2024 RAD - CT Report [id number]#1. 00TIFF Normal [facility] RAD - CT Report [id number]#1 .00TIFF Normal [facility] RAD - MISCon 01-18-2024 RAD - MISC [id number]#1 .00TIFF Normal [facility] RAD - MISC [id number]#1. 00TIFF Normal [facility] Urology Office/Clinic Noteon 01-18-2024 Urology Office/Clinic Note HPI Staff 68 year old female New Pt. seen in [facility] 01/13/24 due to hematuria associated with dysuria [...] new to our office due to recent [facility] ER visit for gross hematuria and suspected bladder mass. Hx of COPD. Not currently on oxygen. States her stats are in the 90s. Pt here with granddaughter today. BBS 26 Hx of partial hysterectomy. 1. Bladder mass (N32.89: Other specified disorders of bladder) Pt presented to [facility] ER 01/13/24 for eval of hematuria that [...] UTI. CT AP wo IV con 01/13/24 [facility] - shows asymmetric focal thickening of the [...] on any blood thinners. No hx of IA or stroke. Pt states her doctor thinks she may of had a stroke when she had COVID, but never confirmed. -Present to the ER if pt is unable to void due to clots -Increase fluids to prevent clots -Urine sent for cytology today -Will schedule CT AP w/ IV and delayed phase to complete urogram @ [facility] STAT prior to TURBT for staging -CXR [...] for indwell (more content not included)... Normal [facility] Comment on above: Result Comment: Elec [...] including vitamins, herbs, eye drops, creams, and xtpq-bbz-hnlbciv medicines. ? Any problems you or family members have had with anesthetic medicines. ? Any bleeding problems you have. ? Any surgeries you have had. ? Any medical conditions you have, including recent urinary tract infections. ? Whether you are or may be . What are the risks? General (more content not included)... Normal [facility] Formson 01-17-2024 Forms [id number]#1. 00TIFF [facility] Patient Educationon 01-17-20 Patient Education Oncology Transurethral [...] including vitamins, herbs, eye drops, creams, and spgf-zdd-vbjsqro medicines. ? Any problems you or family [...] tells you to take them. ? Taking umfo-ium-romkdnc medicines, vitamins, herbs, and supplements. General instructions [...] as y (more content not included)... Normal [facility] Screenson 01-17-2024 Screens [id number]#1 .00TIFF Normal [facility] Urine Cytology ([facility])on 0 01-17-2024 Method of Extraction Voided Normal [facility] Comment on above: Performed By: #### 1 [id number] #### [facility] [address] [place] [address] UC Number of Jars 1 Invalid Interpretation Code [facility] Comment on above: Performed By: #### 1 [id number] #### [facility] [address] [place] [address] Specimen Urine Normal [facility] Comment on above: Performed By: #### 1 [id number] #### [facility] [address] [place] [address] Type of Service Technical Only Normal Fi 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) Centrilobular emphysema (492.8) (J43.2) Former smoker (V15.82) (Z87.891) HTN (hypertension) (401.9) (I10) Mixed hyperlipidemia (272.2) (E78.2) Overweight with body mass index (BMI) of 26 to 26.9 in adult (278.02,V85.22) (E66.3,Z68.26) Orders Overweight with body mass index (BMI) of 26 to 26.9 in adult Healthy Weight Tips; Status:Complete - Retrospective Authorization; Done: 84Udy7557 Some eating tips that can help you lose weight.; Status:Complete - Retrospective Authorization; Done: 45Dnz8681 SocHx: Former smoker Tobacco Use Screening; Status:Complete; Done: 19Hkh6929 Patient Instructions Please bring all medicines, vitamins, [...] negative for complaint. Vitals Vital Signs Recorded: 45Gjx1976 10:39AM Heart Rate76, L Radial Gfdtvusb829, LUE, Sitting Gspyyolrm87, LUE, Sitting Height4 ft 11 in Loydwo908 lb BMI Dvufdufsrq11.86 kg/m2 BSA Calculated1.55 Tobacco Useb) No PHQ-2 [...] Pulmonary: n (more content not included)... Normal [facility] Tobacco Screening.on 023 Adult depression screening assessment No [facility] y 250 DO Work Phone: Fall risk assessment a) No falls within the last year [facility] Work Phone: Tobacco use status CPHS b) No [facility] 250 DO Work Phone: Echocardiogramon 03-09-2023 Echocardiography [facility] [address] [place] [address], [address] [facility] [place], [place] [address] TRANSTHORACIC ECHOCARDIOGRAM REPORT Patient Name: SVETLANA ADRIAN Edgar Physician: [id number] Benny Holguin MD Study Date: 03/09/2023 Referring Physician: BENNY HOLGUIN MRN/PID: [id number] PCP: Accession/Order#: [id number] Department Location: [facility] Xenia Date of : 1955 Fellow: Gender: F Nurse: Admit Date: [place] Traffic Checker: Fatuma Vidales RDCS, RVT Height: 149.86 cm CC Report to: Weight: 59.88 kg Study Type: Echocardiogram BSA: 1.55 m2 Blood Pressure: 140 /78 mmHg Diagnosis/ICD: R06.00-Dyspnea, unspecified Indication: HTN, Hyperlipidemia, Former Smoker, Centrilobular Emphysema, Alpha-1 Antitrysin Deficiency, Overweight Procedure/CPT: Echo Complete w Full Doppler-43474 Study Detail: The following Echo studies were [...] 0.8 m/s (0.6-0.9m/s) PV Max P.7 mmHg [id number] Benny Holguin MD Electronically signed on 03/10/2023 at 4:28:00 PM Final Normal [facility] CARDIAC STRESS/REST INJE CTIONon 03-09-2023 [facility] CARDIAC STRESS/REST INJECTION Patient Name: SVETLANA ADRIAN STUDY: MYOCARDIAL PERFUSION STRESS TEST WITH LEXISCAN Performing facility: [facility], [address] [place] [address], [address], [place] [address] [facility] Provider: Benny Holguin MD PCP: Dr. David Allan Supervising provider: Polina Palomino MD, [facility] INDICATION: Dyspnea HISTORY: Gender: F; Age: 67 y/o ; Height: 0 cm; Weight: 0 kg. High Cholesterol; HTN; SOB; COPD; Emphysema Quit smoking 3.5 years ago. COMPARISON: No comparison. 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 : dyspnea Overweight with body mass index (BMI) of 26 to 26.9 in adult Healthy Weight Tips; Status:Complete; Done: 82Sfx6759 Some eating tips that can help you lose weight.; Status:Complete; Done: 99Jcc2118 SocHx: Former smoker Tobacco Use Screening; Status:Complete; Done: 91Hsr6437 Patient Instructions Please bring all medicines, vitamins, [...] Delayed ReleaseTAKE 1 TABLET DAILY. Potassium Chloride Daine ER 20 MEQ Oral Tablet Extended ReleaseTAKE [...] AM Social History Problems Former smoker (V15.82) (Z87.894) No alcohol use No caffeine use No [...] no sei (more content not included)... Normal [facility] Tobacco Screening.on 023 Adult depression screening assessment No [facility] 250 DO Work Phone: Fall risk assessment b) One or more fall s in the last year [facility] [employer] y 250 DO Work Phone: Tobacco use status CPHS b) No [facility] [employer] 250 DO Work Phone: XR CHEST 2 [...] by: FRANCIS ANDERSON Date: 2022-10-17 15:20 Normal [facility] CT LUNG CANCER SCREENINGon 0 [...] THERESA LUCIA Date: 2022-08-17 07:32 Normal [facility] PROF 14(COMP METB)on 022 Albumin [Mass/Vol] 3.9 g/dL Normal 3.4-5.0 [facility] Comment on above: Performed By: #### C MP #### [facility] [address] [place] [address] [address] Shelby Rodriguez Albumin/Globulin [Mass ratio] 1.2 {ratio} Normal [facility] Comment on above: Performed By: #### C MP #### [facility] [address] [place] [address] [address] Shelby Rodriguez ALP [Catalytic activity/Vol] 60 U/L Normal 46-116 [facility] Comment on above: Performed By: #### C MP #### [facility] [address] [place] [address] [address] Shelby Rodriguez ALT [Catalytic activity/Vol] 35 U/L Normal 14-59 [facility] Comment on above: Performed By: #### C MP #### [facility] [address] [place] [address] [address] Shelby Rodriguez Anion gap [Moles/Vol] 10.3 mmol/L Normal [facility] Comment on above: Performed By: #### C MP #### [facility] [address] [place] [address] [address] Shelby Rodriguez AST [Catalytic activity/Vol] 22 U/L Normal 15-37 [facility] Comment on above: Performed By: #### C MP #### [facility] [address] [place] [address] Dr. Shelby Rodriguez Bilirubin [Mass/Vol] 0.5 mg/dL Normal 0.2-1.0 [facility] Comment on above: Performed By: #### C MP #### [facility] [address] [place] [address] Dr. Shelby Rodriguez Calcium [Mass/Vol] 9.4 mg/dL Normal 8.5-10.1 [facility] Comment on above: Performed By: #### C MP #### [facility] [address] [place] [address] Dr. Shelby Rodriguez Chloride [Moles/Vol] 105 mmol/L Normal 98-107 [facility] Comment on above: Performed By: #### C MP #### [facility] [address] [place] [address] Dr. Shelby Rodriguez CO2 [Moles/Vol] 30.5 mmol/L Normal 21.0-32.0 [facility] Comment on above: Performed By: #### C MP #### [facility] [address] [place] [address] Dr. Shelby Rodriguez Creatinine [Mass/Vol] 0.87 mg/dL Normal 0.55-1.02 [facility] Comment on above: Performed By: #### C MP #### [facility] [address] [place] [address] Dr. Shelby Rodriguez EGFR-AF TUVALUAN >60 Normal >=60 [facility] Comment on above: Performed By: #### C MP #### [facility] [address] [place] [address] Dr. Shelby Rodriguez EGFR-NON AF TUVALUAN >60 Normal >=60 [facility] Comment on above: Performed By: #### C MP #### [facility] [address] [place] [address] Dr. Shelby Rodriguez Globulin (S) [Mass/Vol] 3.2 g/dL Normal [facility] Comment on above: Performed By: #### C MP #### [facility] [address] [place] [address] Dr. Shelby Rodriguez Glucose [Mass/Vol] 122 mg/dL Critically high 74-[address] [facility] Comment on above: Performed By: #### C MP #### [facility] [address] [place] [address] [address] Shelby Rodriguez Potassium [Moles/Vol] 4.8 mmol/L Normal 3.5-5.1 [facility] Comment on above: Performed By: #### C MP #### [facility] [address] [place] [address] Dr. Shelby Rodriguez Protein [Mass/Vol] 7.1 g/dL Normal 6.4-8.2 [facility] Comment on above: Performed By: #### C MP #### [facility] [address] [place] [address] Dr. Shelby Rodriguez Sodium [Moles/Vol] 141 mmol/L Normal 136-145 [facility] Comment on above: Performed By: #### C MP #### [facility] [address] [place] [address] Dr. Shelby Rodriguez Urea nitrogen [Mass/Vol] 14.0 mg/dL Normal 7.0-18.0 [facility] Comment on above: Performed By: #### C MP #### [facility] [address] [place] [address] Dr. Shelby Rodriguez Urea nitrogen/Creatinine [Mass ratio] 16.1 mg/mg Normal [facility] Comment on above: Performed By: #### C MP #### [facility] [address] [place] [address] [address] Shelby Rodriguez Vital Signs Date Time Vital Sign Value Performing Clinician Facility 07-16-2024 14:27-0500 Body height 149.[address] Ford NP Work Phone: [facility] 07-16-2024 14:27-0500 Body mass index (BMI) [Ratio] 18.3 kg/m2 Rd Ford [employer] Work Phone: [facility] 07-16-2024 14:27-0500 Body temperature 98.49 [degF] Rd Ford [employer] Work Phone: [facility] 07-16-2024 14:27-0500 Body weight 41.[address] Ford [employer] Work Phone: [facility] 07-16-2024 14:27-0500 Diastolic blood pressure 84 mm[Hg] Rd Ford [employer] LEAD Work Phone: [facility] 07-16-2024 14:27-0500 Heart rate 145 /min Rd Ford [employer] LEAD Work Phone: [facility] 07-16-2024 14:27-0500 Respiratory rate 20 /min Rd Ford AUTOM[employer] LEAD Work Phone: [facility] 07-16-2024 14:27-0500 SaO2% (BldA) [Mass fraction] 98 % Rd Ford AUTOM[employer] LEAD Work Phone: [facility] 07-16-2024 14:27-0500 Systolic blood pressure 120 mm[Hg] Rd Ford [employer] LE[employer] Work Phone: [facility] 07-01-2024 10:44-0500 Body mass index (BMI) [Ratio] 20 kg/m2 Rd Ford [employer] LE[employer] Work Phone: [facility] 07-01-2024 10:44-0500 Body temperature 98.01 [degF] Rd Ford [employer] LEAD Work Phone: [facility] 07-01-2024 10:44-0500 Body weight 44.[address] Ford [employer]OM[employer] LEAD Work Phone: [facility] 07-01-2024 10:44-0500 Diastolic blood pressure 82 mm[Hg] Rd Ford AUTOM[employer] LEAD Work Phone: [facility] 07-01-2024 10:44-0500 Heart rate 82 /min Rd Kevinpatrick AUTOMATION LEAD Work Phone: [facility] 07-01-2024 10:44-0500 Respiratory rate 16 /min Rd Kevinpatrick AUTOMATION LEAD Work Phone: [facility] 07-01-2024 10:44-0500 SaO2% (BldA) [Mass fraction] 98 % Rd Kevinpatrick AUTOMATION LEAD Work Phone: [facility] 07-01-2024 10:44-0500 Systolic blood pressure 108 mm[Hg] Rd Kevinpatrick AUTOMATION LEAD Work Phone: [facility] 06-20-2024 09:44-0500 Body height 150.7 cm Masha Knight APRN.KAIAWHINA KURA [employer] MAORI Work Phone: [facility] 06-20-2024 09:44-0500 Body mass index (BMI) [Ratio] 18.76 kg/m2 Masha Knight APRN.KAIAWHINA KURA [employer] MAORI Work Phone: [facility] 06-20-2024 09:44-0500 Body temperature 97.3 [degF] Masha Knight APRN.KAIAWHINA KURA [employer] MAORI Work Phone: [facility] 06-20-2024 09:44-0500 Body weight 42.6 kg Masha Knight APRN.KAIAWHINA KURA [employer] [employer]ORI Work Phone: [facility] 06-20-2024 09:44-0500 Diastolic blood pressure 53 mm[Hg] Masha Knight APRN.KAIAWHINA KURA [employer] [employer]ORI Work Phone: [facility] 06-20-2024 09:44-0500 Heart rate 71 /min Masha Knight APRN.KAIAWHINA KURA [place] [employer]ORI Work Phone: [facility] 06-20-2024 09:44-0500 Respiratory rate 18 /min Masha Knight APRN.KAIAWHINA KURA [employer] [employer]ORI Work Phone: [facility] 06-20-2024 09:44-0500 SaO2% (BldA) [Mass fraction] 95 % Masha Knight APRN.KAIAWHINA KURA [employer] [employer]ORI Work Phone: [facility] 06-20-2024 09:44-0500 Systolic blood pressure 94 mm[Hg] Masha Knight APRN.KAIAWHINA KURA [employer] [employer]I Work Phone: [facility] 06-06-2024 09:36-0400 Body height 150.7 cm Chair Luce Work Phone: [facility] 06-06-2024 09:36-0400 Body mass index (BMI) [Ratio] 19.24 kg/m2 Chair Luce Work Phone: [facility] 06-06-2024 09:36-0400 Body temperature 98.2 [degF] Chair Xenia Work Phone: [facility] 06-06-2024 09:36-0400 Body weight 43.7 kg Chair Luce Work Phone: [facility] 06-06-2024 09:36-0400 Diastolic blood pressure 69 mm[Hg] Chair Luce Work Phone: [facility] 06-06-2024 09:36-0400 Heart rate 113 /min Chair Luce Work Phone: [facility] 06-06-2024 09:36-0400 Respiratory rate 20 /min Chair Luce Work Phone: [facility] 06-06-2024 09:36-0400 SaO2% (BldA) [Mass fraction] 98 % Chair Luce Work Phone: [facility] 06-06-2024 09:36-0400 Systolic blood pressure 132 mm[Hg] Chair Luce Work Phone: [facility] 05-30-2024 09:52-0400 Body height 150.7 cm Lee Dunn MD Work Phone: [facility] 05-30-2024 09:52-0400 Body mass index (BMI) [Ratio] 19.55 kg/m2 Lee Dunn MD Work Phone: [facility] 05-30-2024 09:52-0400 Body temperature 97.3 [degF] Lee Dunn MD Work Phone: [facility] 05-30-2024 09:52-0400 Body weight 44.4 kg Lee Dunn MD Work Phone: [facility] 05-30-2024 09:52-0400 Diastolic blood pressure 63 mm[Hg] Lee Dunn MD Work Phone: [facility] 05-30-2024 09:52-0400 Heart rate 59 /min Lee Dunn MD Work Phone: [facility] 05-30-2024 09:52-0400 Respiratory rate 18 /min Lee Dunn MD Work Phone: [facility] 05-30-2024 09:52-0400 SaO2% (BldA) [Mass fraction] 100 % Lee Dunn MD Work Phone: [facility] 05-30-2024 09:52-0400 Systolic blood pressure 116 mm[Hg] Lee Dunn MD Work Phone: [facility] 05-16-2024 09:50-0400 Body temperature 98.1 [degF] Chair Xenia Work Phone: [facility] 05-16-2024 09:50-0400 Diastolic blood pressure 69 mm[Hg] Chair Luce Work Phone: [facility] 05-16-2024 09:50-0400 Heart rate 61 /min Chair Luce Work Phone: [facility] 05-16-2024 09:50-0400 Respiratory rate 18 /min Chair Luce Work Phone: [facility] 05-16-2024 09:50-0400 SaO2% (BldA) [Mass fraction] 98 % Chair Luce Work Phone: [facility] 05-16-2024 09:50-0400 Systolic blood pressure 136 mm[Hg] Chair Luce Work Phone: [facility] 05-09-2024 09:15-0400 Body height 150.7 cm Doris Severiano PA-C Work Phone: [facility] 05-09-2024 09:15-0400 Body mass index (BMI) [Ratio] 20.25 kg/m2 Doris Severiano PA-C Work Phone: [facility] 05-09-2024 09:15-0400 Body temperature 97.59 [degF] Doris Severiano PA-C Work Phone: [facility] 05-09-2024 09:15-0400 Body weight 46 kg Doris Severiano PA-C Work Phone: [facility] 05-09-2024 09:15-0400 Diastolic blood pressure 59 mm[Hg] Doris Severiano PA-C Work Phone: [facility] 05-09-2024 09:15-0400 Heart rate 99 /min Doris Severiano PA-C Work Phone: [facility] 05-09-2024 09:15-0400 Respiratory rate 16 /min Doris Severiano PA-C Work Phone: [facility] 05-09-2024 09:15-0400 SaO2% (BldA) [Mass fraction] 95 % Doris Severiano PA-C Work Phone: [facility] 05-09-2024 09:15-0400 Systolic blood pressure 100 mm[Hg] Doris Severiano PA-C Work Phone: [facility] 04-25-2024 15:20-0400 Diastolic blood pressure 70 mm[Hg] Chair Luce Work Phone: [facility] 04-25-2024 15:20-0400 Systolic blood pressure 127 mm[Hg] Chair Luce Work Phone: [facility] 04-25-2024 08:21-0400 Body mass index (BMI) [Ratio] 21.36 kg/m2 Lee Dunn MD Work Phone: [facility] 04-25-2024 08:21-0400 Body temperature 97.11 [degF] Lee Dunn MD Work Phone: [facility] 04-25-2024 08:21-0400 Body weight 48.5 kg Lee Dunn MD Work Phone: [facility] 04-25-2024 08:21-0400 Diastolic blood pressure 83 mm[Hg] Lee Dunn MD Work Phone: [facility] 04-25-2024 08:21-0400 Heart rate 76 /min Lee Dunn MD Work Phone: [facility] 04-25-2024 08:21-0400 Respiratory rate 18 /min Lee Dunn MD Work Phone: [facility] 04-25-2024 08:21-0400 SaO2% (BldA) [Mass fraction] 93 % Lee Dunn MD Work Phone: [facility] 04-25-2024 08:21-0400 Systolic blood pressure 123 mm[Hg] Lee Dunn MD Work Phone: [facility] 04-18-2024 10:33-0400 Body height 150.7 cm Chair Xenia Work Phone: [facility] Comment on above: Verified 04-18-2024 10:33-0400 Body mass index (BMI) [Ratio] 21.09 kg/m2 Chair Xenia Work Phone: [facility] 04-18-2024 10:33-0400 Body temperature 97.7 [degF] Chair Michaels Work Phone: [facility] 04-18-2024 10:33-0400 Body weight 47.9 kg Chair Michaels Work Phone: [facility] 04-18-2024 10:33-0400 Diastolic blood pressure 63 mm[Hg] Chair Luce Work Phone: [facility] 04-18-2024 10:33-0400 Heart rate 97 /min Chair Xenia Work Phone: [facility] 04-18-2024 10:33-0400 Respiratory rate 18 /min Chair Luce Work Phone: [facility] 04-18-2024 10:33-0400 SaO2% (BldA) [Mass fraction] 95 % Chair Xenia Work Phone: [facility] 04-18-2024 10:33-0400 Systolic blood pressure 119 mm[Hg] Chair Xenia Work Phone: [facility] 04-04-2024 15:58-0400 Body temperature 97.39 [degF] Lee Dunn MD Work Phone: [facility] 04-04-2024 15:58-0400 Body weight 49.2 kg Lee Dunn MD Work Phone: [facility] 04-04-2024 15:58-0400 Diastolic blood pressure 77 mm[Hg] Lee Dunn MD Work Phone: [facility] 04-04-2024 15:58-0400 Heart rate 96 /min Lee Dunn MD Work Phone: [facility] 04-04-2024 15:58-0400 Respiratory rate 16 /min Lee Dunn MD Work Phone: [facility] 04-04-2024 15:58-0400 SaO2% (BldA) [Mass fraction] 93 % Lee Dunn MD Work Phone: [facility] 04-04-2024 15:58-0400 Systolic blood pressure 125 mm[Hg] Lee Dunn MD Work Phone: [facility] 02-29-2024 09:05-0400 Blood Pressure Location Lin Lue [facility] 02-29-2024 09:05-0400 Diastolic blood pressure 86 mm[Hg] Lin Lue [facility] 02-29-2024 09:05-0400 Heart rate 64 /min Lin Lue [facility] 02-29-2024 09:05-0400 Respiratory rate 16 /min Lin Lue [facility] 02-29-2024 09:05-0400 Systolic blood pressure 142 mm[Hg] Lin Lue [facility] 02-01-2024 13:20-0400 Body temperature 98.6 [degF] Lin Lue [facility] 02-01-2024 13:20-0400 Diastolic blood pressure 61 mm[Hg] Lin Lue [facility] 02-01-2024 13:20-0400 Heart rate 72 /min Lin Lue [facility] 02-01-2024 13:20-0400 Respiratory rate 16 /min Lin Lue [facility] 02-01-2024 13:20-0400 Systolic blood pressure 125 mm[Hg] Lin Lue [facility] 11-28-2023 15:41-0400 Body height 149.9 cm Benny Holguin MD Work Phone: [facility] 11-28-2023 15:41-0400 Body mass index (BMI) [Ratio] 25.45 kg/m2 Benny Holguin MD Work Phone: [facility] 11-28-2023 15:41-0400 Body weight 57.15 kg Benny Holguin MD Work Phone: [facility] 11-28-2023 15:41-0400 Diastolic blood pressure 80 mm[Hg] Benny Holguin MD Work Phone: [facility] 11-28-2023 15:41-0400 Heart rate 66 /min Benny Holguin MD Work Phone: [facility] 11-28-2023 15:41-0400 Systolic blood pressure 130 mm[Hg] Benny Holguin MD Work Phone: [facility] 09-24-2023 18:05-0500 Body height 149.9 cm Shaikh Jerrell SINGLETARY Work Phone: [facility] 09-24-2023 18:05-0500 Body mass index (BMI) [Ratio] 24.64 kg/m2 Shaikh Jerrell SINGLETARY Work Phone: [facility] 09-24-2023 18:05-0500 Body temperature 97 [degF] Shaikh Jerrell SINGLETARY Work Phone: [facility] 09-24-2023 18:05-0500 Body weight 55.34 kg Shaikh Jerrell SINGLETARY Work Phone: [facility] 09-24-2023 18:05-0500 Diastolic blood pressure 80 mm[Hg] Shaikh Jerrell SINGLETARY Work Phone: [facility] 09-24-2023 18:05-0500 Heart rate 90 /min Shaikh Jerrell SINGLETARY Work Phone: [facility] 09-24-2023 18:05-0500 SaO2% (BldA) [Mass fraction] 97 % Shaikh Jerrell SINGLETARY Work Phone: [facility] 09-24-2023 18:05-0500 Systolic blood pressure 132 mm[Hg] Shaikh Jerrell SINGLETARY Work Phone: [facility] 03-30-2023 10:39-0400 Body height 149.86 cm Tsemariaa Gaticaalvin Work Phone: [facility] DO Work Phone: 03-30-2023 10:39-0400 Body mass index (BMI) [Ratio] 26.86 kg/m2 Tsenatasha Gaticaalvin Work Phone: [facility] DO Work Phone: 03-30-2023 10:39-0400 Body surface area Derived from formula 1.55 m2 Shaikh Gavialvin Work Phone: [facility] DO Work Phone: 03-30-2023 10:39-0400 Body weight 60.33 kg Shaikh Jerrell Work Phone: [facility] DO Work Phone: 03-30-2023 10:39-0400 Diastolic blood pressure 70 mm[Hg] Tsemariaa Farrwaalvin Work Phone: [facility] DO Work Phone: 03-30-2023 10:39-0400 Heart rate 76 /min Shaikh Marywad Work Phone: [facility] DO Work Phone: 03-30-2023 10:39-0400 Systolic blood pressure 122 mm[Hg] Shaikh Pujawwad Work Phone: [facility] DO Work Phone: 01-26-2023 11:30-0400 Diastolic blood pressure 92 mm[Hg] Shaikh Pujawwad Work Phone: [facility] DO Work Phone: 01-26-2023 11:30-0400 Systolic blood pressure 164 mm[Hg] Fawwad Work Phone: [facility] DO Work Phone: 01-26-2023 11:29-0400 Body height 149.86 cm Shaikh Marywad Work Phone: [facility] DO Work Phone: 01-26-2023 11:29-0400 Body mass index (BMI) [Ratio] 26.66 kg/m2 Shaikh Pujawwad Work Phone: [facility] DO Work Phone: 01-26-2023 11:29-0400 Body surface area Derived from formula 1.55 m2 Shaikh Marywad Work Phone: [facility] DO Work Phone: 01-26-2023 11:29-0400 Body weight 59.88 kg Shaikh Marywad Work Phone: [facility] DO Work Phone: 01-26-2023 11:29-0400 Diastolic blood pressure 100 mm[Hg] Shaikh Pujawwad Work Phone: [facility] DO Work Phone: 01-26-2023 11:29-0400 Heart rate 91 /min Shaikh Pujawwad Work Phone: [facility] DO Work Phone: 01-26-2023 11:29-0400 Systolic blood pressure 184 mm[Hg] Shaikh Jerrell Work Phone: [facility] DO Work Phone: Encounters Encounter Date Encounter Type Care Provider Facility Start: 07-16-2024 End: 07-16-2024 Office outpatient visit [address] Selfk AUTOMATION LEAD Work Phone: [facility] Comment on above: Dyspnea on exertion (Primary Dx); COPD, severe (CMS/HCC); COPD exacerbation (CMS/HCC) Start: 07-16-2024 End: 07-16-[address] Chungtrick AUTOMATION LEAD Work Phone: [facility] Start: 07-16-2024 End: 07-16-[address] Chungtrick AUTOMATION LEAD Work Phone: [facility] Start: 07-15-2024 End: 07-15-2024 Refill Elizabeth Bradshaw MA [facility] Comment on above: Primary hypertension (CMS/HCC); Pain in right hip; Gastroesophageal reflux disease without esophagitis Start: 07-11-2024 End: 07-11-2024 ambulatory [facility] Facility:[facility] Start: 07-11-2024 End: 07-11-2024 Subsequent hospital visit by physician Arrival Time Radiology Work Phone: [facility] Comment on above: Malignant neoplasm o f urinary bladder, unspecified site (HCC) [C67.9] Start: 07-01-2024 End: 07-01-[address] Kevinpatrick AUTOMATION LEAD Work Phone: [facility] Start: 07-01-2024 End: 07-01-[address] Ford AUTOMATION LEAD Work Phone: [facility] Start: 07-01-2024 End: 07-01-2024 Office outpatient visit [address] Selfk AUTOMATION LEAD Work Phone: [facility] Comment on [...] 06-23-2024 End: 06-23-2024 Telephone encounter Masha Knight APRN.KAIAWHINA KURA KAUPAPA MAORI Work Phone: Hematology/Oncology Comment on above: Orders Start: 06-20-2024 End: 06-24-2024 Telephone encounter Masha Knight APRN.KAIAWHINA KURA KAUPAPA MAORI Work Phone: [facility] Comment on above: Appointment Start: 06-20-2024 End: 06-20-2024 Patient encounter procedure Masha Knight APRN.KAIAWHINA KURA KAUPAPA MAORI Work Phone: Hematology/Oncology Start: 06-20-2024 End: 06-20-2024 [...] 05-30-2024 End: 06-02-2024 Social Work Krystal Paige [facility] Hematology/Oncology Comment on above: Malignant neoplasm o f overlapping sites of bladder (HCC) (Primary Dx) Start: 05-23-2024 End: 05-26-[address] Work Phone: Nutrition Therapy Start: 05-23-2024 End: 05-23-[address] Nutrition therapy Katia Goss RD Work Phone: Nutrition Therapy Comment on above: Nutrition Telephone Start: 05-16-2024 End: 05-16-2024 Social Work Krystal Paige [facility] Hematology/Oncology Comment on above: Malignant neoplasm o [...] 04-25-2024 End: 04-25-2024 Social Work Krystal Paige [employer] Hematology/Oncology Comment on above: Malignant neoplasm o [...] Orders Start: 04-24-2024 ambulatory KATIA GOSS Fa cility:[facility] Start: 04-22-2024 End: 05-06-2024 Telephone encounter [...] Start: 04-07-2024 End: 04-07-2024 ambulatory LEE DUNN Facility:[facility] Start: 04-04-2024 End: 04-04-2024 ambulatory LEE DUNN Facility:[facility] Start: 04-04-2024 End: 04-04-2024 Office outpatient new 60 minutes Lee Dunn MD Work Phone: Hematology/Oncology Comment on above: Malignant neoplasm o f overlapping sites of bladder (HCC) (Primary Dx) Start: 04-04-2024 End: 04-09-2024 Telephone encounter Lee Dunn MD [facility] Comment on above: Appointment Start: 04-02-2024 End: 04-02-2024 Chart abstracting Lee Dunn MD Work Phone: Hematology/Oncology Start: 03-31-2024 End: 03-31-[address] FORD Not Available Start: 03-19-2024 End: 03-19-2024 ambulatory ALEJANDRO WARE Facility:[facility] Start: 02-29-2024 End: 02-29-2024 Lab Drop off Lin Dalton [facility] Start: 02-29-2024 End: 02-29-2024 ambulatory Lin Dalton Facility:[facility] Start: 02-29-2024 End: 02-29-2024 Patient encounter procedure Lin Dalton [facility] Start: 02-01-2024 End: 02-01-2024 ambulatory Lin M. Lue Facility:[facility] Start: 02-01-2024 End: 02-01-2024 Patient encounter procedure Lin M. Lue [facility] Start: 01-31-2024 End: 01-31-2024 ambulatory SHAIKH MARYANDERSON Not Available Start: 01-23-2024 End: 01-23-2024 ambulatory Lin M Lue [facility] Work Phone: Start: 01-23-2024 End: 01-23-2024 Departed Referred MD Lin Dalton Work Phone: [facility] Start: 01-23-2024 End: 01-23-2024 ambulatory Lin M. Lue Facility:[id number] Start: 01-21-2024 End: 01-21-2024 ambulatory Lin M. Lue Facility:[facility] Start: 01-21-2024 End: 01-21-2024 Patient encounter procedure Lin M. Lue [facility] Start: 01-17-2024 End: 01-17-2024 Lab Drop off Lin M. Lue [facility] Start: 01-17-2024 End: 01-17-2024 ambulatory Lin M. Lue Facility:[facility] Start: 01-17-2024 End: 01-17-2024 Patient encounter procedure Lin M. Lue [facility] Start: 01-14-2024 ambulatory Lin Lue Facility:[facility] Start: 12-31-2023 End: 12-31-2023 ambulatory TSE PUJARajKIYAD Not Available Start: 11-28-2023 End: 11-28-2023 ambulatory BENNY HOLGUIN [facility] Amb[facility] Start: 11-28-2023 End: 11-28-2023 Office outpatient visit 15 minutes Benny Holguin MD Work Phone: [facility] Comment on above: Shortness of breath (Primary Dx); Essential hypertension; Mixed hyperlipidemia; Svfne-2-dxsgtikrljk deficiency (Multi); Centrilobular emphysema (Multi); Former smoker; BMI 25.0-25.9,adult Start: 11-14-2023 End: 11-14-2023 ambulatory SHAIKH JERRELL Not Available Start: 09-24-2023 End: 09-24-2023 Office outpatient visit 15 minutes Shaikh Jerrell SINGLETARY Work Phone: [facility] Comment on above: Current moderate epi sode of major depressive disorder without prior episode (HCC) (CMS/HCC) (Primary Dx) Start: 09-24-2023 End: 09-24-2023 Orders Only Shaikh Jerrell SINGLETARY Work Phone: [facility] Comment on above: Primary hypertension (CMS/HCC) (Primary Dx) Start: 08-23-2023 End: 08-23-2023 ambulatory SHAIKH JERRELL Not Available Start: 08-02-2023 Patient encounter procedure Shaikh Jerrell SINGLETARY Work Phone: [facility] Start: 08-02-2023 End: 08-02-2023 ambulatory SHAIKH JERRELL Not Available Start: 03-30-2023 Office outpatient vi sit 15 minutes Shaikh Jerrell Work Phone: [facility] DO Work Phone: Start: 03-30-[address] Benny Holguin Facility: Start: 03-11-2023 Chart Update Shaikh Jerrell Work Phone: [facility] 250 DO Work Phone: Start: 03-10-2023 Chart Update Shaikh Jerrell Work Phone: [facility] DO Work Phone: Start: 03-09-[address] Benny Holguin Facility:[id number] Start: 01-26-2023 Office consultation new/estab patient 60 min Shaikh Gavialvin Work Phone: [facility] 250 DO Work Phone: Start: [...] w/o contrst 1/> body re Masha Knight TAX REVENUE OFFICER.KAIAWHINA KURA KAUPAPA MAORI Work Phone: Start: 07-11-2024 Ct thorax w/contrast material Masha Knight TAX REVENUE OFFICER.KAIAWHINA KURA KAUPAPA MAORI Work Phone: Start: 07-11-2024 CREATININE BLD Masha oconnor TAX REVENUE OFFICER.KAIAWHINA KURA KAUPAPA MAORI Work Phone: Start: 06-06-2024 Blood count complete auto&auto difrntl wbc Lee Dunn MD Work Phone: Start: 05-16-2024 Blood count complete auto&auto difrntl wbc Doris Dupree PA-C Work Phone: Start: 04-18-2024 Comprehensive metabo lic panel Lee Dunn MD Work Phone: Start: 03-10-[address] mar AUTOMATION LEAD Work Phone: Start: 01-23-2024 Transurethral resect ion [...] microalbumin profile DTaP,Tdap,Td Vaccine (2 - Tdap) [facility] Start: 09-11-2027 Screening for malign ant neoplasm of colon [facility] Start: 06-20-2027 Diabetes Screening [facility] Start: 06-06-2027 Diabetes Screening [facility] Start: 05-30-2027 Diabetes Screening [facility] Start: 05-16-2027 Diabetes Screening [facility] Start: 05-09-2027 Diabetes Screening [facility] Start: 04-25-2027 Diabetes Screening [facility] Start: 04-18-2027 Diabetes Screening [facility] Start: 04-07-2027 Diabetes Screening [facility] Start: 03-10-2025 Screening for malign ant neoplasm of breast Mammogram [facility] Start: 10-01-2024 End: 10-01-2024 Patient encounter procedure 10/01/2024 9:30 AM EST Office Visit [facility] [address] [place] [phone] Emerson Pinto MD [address] [place] [id number] [facility] Start: 09-02-2024 End: 09-02-2024 Patient encounter procedure 09/02/2024 1:30 PM EST Office Visit [facility] [address] [facility] [address] [place] [id number] Benny Holguin MD [address] [facility] [address] [place] [address] [facility] Start: 08-02-2024 Medicare Annual Well ness (AWV) Medicare Annual Wellness (AWV) [facility] Start: 07-30-2024 End: 07-30-2024 Patient encounter procedure 07/30/2024 1:10 PM EST Office Visit Urology [address] [place] [address] Alejandro Ware MD [address] [place], [place] [id number] FOLLOW UP AFTER SCANS Urology Comment on above: FOLLOW UP AFTER SCAN S Start: 07-18-2024 End: 07-18-2024 Nutrition therapy 07/18/2024 3:00 PM EST [facility] [address] [place] [address] [address] phone f/u Nutrition Therapy Comment on above: phone f/u Start: 07-16-2024 End: 07-16-2024 Patient encounter procedure 07/16/2024 2:30 PM EST Office Visit [facility] [address] [place] [phone] Rd Ford NP [address] [place] [address] Arrived [facility] Comment on above: Arrived Start: 07-11-2024 End: 10-10-2024 CREATININE BLD CREATININE BLD Lab Routine Malignant neoplasm of overlapping sites of bladder (HCC) Expected: 07/11/2024 (Approximate), Expires: 10/10/2024 [place] Work Phone: Comment on above: Expected: 07/11/2024 (Approximate), Expires: 10/10/2024 Start: 07-11-2024 End: 07-11-2024 Patient encounter procedure 07/11/2024 10:15 AM EST Appointment Radiology Pet CT [address] [facility] [place] [address] CT CHEST + UROGRAM Radiology Pet CT Comment on above: CT CHEST + UROGRAM Start: 07-01-2024 End: 07-01-2024 Patient encounter procedure 07/01/2024 10:30 AM EST Office Visit [facility] [address] [place] [address] Rd Ford NP [address] [place] [address] Arrived [facility] Comment on above: Arrived Start: 06-26-2024 End: 06-26-2024 Nutrition therapy 06/26/2024 3:00 PM EST [facility] [address] [place] [address] [place] [address] phone f/u Nutrition Therapy Comment on above: phone f/u Start: 06-20-2024 End: 06-20-2024 ambulatory Hematology/Oncology Comment on above: weekly Chemo tx [facility]is [facility] Start: 06-20-2024 End: 06-20-2024 Patient encounter procedure 06/20/2024 9:45 AM EST Office Visit [facility] [address] [place] [address] weekly Chemo tx [facility]is [facility] Comment on above: weekly Chemo tx [facility]is [place] Start: 06-06-2024 End: 06-06-2024 Nutrition therapy 06/06/2024 2:15 PM EDT Education Nutrition Therapy [address] [facility] [place] [address] [address] phone f/u Nutrition Therapy Comment on above: phone f/u Start: 06-06-2024 End: 06-06-2024 ambulatory 06/06/2024 9:30 AM EDT Infusion Center Hematology/Oncology [address] [facility] [place] [address] weekly Chemo tx [facility]is [facility] Hematology/Oncology Comment on above: weekly Chemo tx [facility] [place] Start: 05-30-2024 End: 05-30-2024 ambulatory Hematology/Oncology Comment on above: weekly Chemo tx [facility]is [place] Start: 05-30-2024 End: 05-30-2024 Patient encounter procedure 05/30/2024 9:45 AM EDT Office Visit [facility] [address] [address] weekly Chemo tx [facility] Comment on above: weekly Chemo tx [facility] [place] Start: 05-23-2024 End: 05-23-2024 Nutrition therapy 05/23/2024 3:00 PM EDT [facility] [address] [place] [address] [address] phone f/u Nutrition Therapy Comment on above: phone f/u Start: 05-16-2024 End: 05-16-2024 ambulatory 05/16/2024 10:00 AM EDT Infusion Center Hematology/Oncology [address] [place] [address] weekly Chemo tx [facility]is [facility] Hematology/Oncology Comment on above: weekly Chemo tx [facility] [place] Start: 05-09-2024 End: 05-09-2024 ambulatory Hematology/Oncology Comment on above: weekly Chemo tx [facility] [place] Start: 05-09-2024 End: 05-09-2024 Patient encounter procedure 05/09/2024 9:15 AM EDT Office Visit [facility] [address] [facility] [place] [address] weekly Chemo tx [facility] Comment on above: weekly Chemo tx [facility] [place] Start: 05-02-2024 End: 05-02-2024 Nutrition therapy 05/02/2024 3:00 PM EDT Education [facility] [address] [place] [address] Katia Goss, ROMA [address] [address] phone f/u Nutrition Therapy Comment on above: phone f/u Start: 04-25-2024 End: 04-24-2025 CBC W Auto Differential panel - Blood COMPLETE BLOOD COUNT AND DIFFERENTIAL Lab Routine Malignant neoplasm of overlapping sites of bladder (HCC) Expected: 04/25/2024 (Approximate), Expires: 04/24/2025 [place] Work Phone: Comment on above: Expected: 04/25/2024 (Approximate), Expires: 04/24/2025 Start: 04-25-2024 End: 04-24-2025 Comprehensive metabolic 2000 panel - Serum or Plasma COMPREHENSIVE METABOLIC PANEL Lab Routine Malignant neoplasm of overlapping sites of bladder (HCC) Expected: 04/25/2024 (Approximate), Expires: 04/24/2025 [facility] Comment on above: Expected: 04/25/2024 (Approximate), Expires: 04/24/2025 Start: 04-25-2024 End: 04-25-2024 ambulatory Hematology/Oncology Comment on above: weekly Chemo tx Cis Lincoln Start: 04-25-2024 End: 04-25-2024 Patient encounter procedure 04/25/2024 8:30 AM EDT Office Visit [facility] [address] [place] [address] weekly Chemo tx Cis Lincoln [facility] Comment on above: weekly Chemo tx Cis Lincoln Start: 04-24-2024 End: 04-24-2024 Nutrition therapy 04/24/2024 2:15 PM EDT Education Nutrition Therapy [address] [address] [address] phone f/u Nutrition Therapy Comment on above: phone f/u Start: 04-18-2024 End: 04-18-2024 ambulatory 04/18/2024 10:00 AM EDT Infusion Center Hematology/Oncology [address] [address] Xenia, Chair [address] [place] [address] [place] [address] Chemo tx Cis Lincoln per phone encounter Hematology/Oncology Comment on above: Chemo tx Cis Lincoln per phone encounter Start: 04-17-2024 End: 04-17-2024 Nutrition therapy 04/17/2024 2:15 PM EDT Education Nutrition Therapy [address] [address] Katia Goss, ROMA [address] [address] Malignant neoplasm of overlapping sites of bladder (HCC) [C67.8] Nutrition Therapy Comment on above: Malignant neoplasm o f overlapping sites of bladder (HCC) [C67.8] Start: 04-13-2024 Covid-19 Vaccine ( season) Covid-19 Vaccine ( season) [facility] Start: 04-13-2024 Covid-19 Vaccine ( season) Covid-19 Vaccine ( season) [facility] Start: 04-13-2024 Influenza vaccination Influenza Vacc ine (#1) [facility] Start: 04-10-2024 End: 04-10-2024 Nursing evaluation of patient and report Hematology/Oncology Comment on above: Chemo ed Cis gem Chemo ed Cis gem / p t is scheduled for New Start on 04-18-24. No appt for Dr Bailey. Sent phone encounter no respose as of yet. Start: 04-04-2024 End: 04-04-2024 ambulatory 04/04/2024 4:00 PM EDT Visit (SP) Office Hematology/Oncology [address] [address] Lee Dunn MD [address] [place] [address] [place] [address] Evaluation of Neoadjuvant chemotherapy for muscle invasive bladder cancer Hematology/Oncology Comment on above: Evaluation of Neoadj uvant chemotherapy for muscle invasive bladder cancer Start: 04-04-2024 End: 04-04-2025 Comprehensive metabolic 2000 panel - Serum or Plasma COMPREHENSIVE METABOLIC PANEL Lab Routine Malignant neoplasm of overlapping sites of bladder (HCC) Expected: 04/04/2024, Expires: 04/04/2025 [place] Work Phone: Comment on above: Expected: 04/04/2024 , Expires: 04/04/2025 Start: 03-04-2024 Screening for malign ant neoplasm of breast Mammogram [facility] Start: 11-22-2023 End: 11-22-2023 Patient encounter procedure 11/22/2023 11:30 AM EDT Office Visit [facility] [address] [place] [id number] Shaikh Allan MD [address] [place] [address] [facility] Start: 10-05-2023 FUV, Provider: Benny Holguin, Status: Pen, Time: 9:20 AM FUV, Provider: Benny Holguin, Status: Pen, Time: 9:20 AM [facility] 250 DO Work Phone: Start: 09-24-2023 End: 09-24-2023 Patient encounter procedure 09/24/2023 5:45 PM EST Office Visit [facility] [address] [place] [phone] Shaikh Allan MD [address] [place] [address] [facility] Start: 08-13-2023 Advance Directive Discussion Advance Directive Discussion [facility] Start: 04-13-2023 COVID-19 Vaccine ( season) COVID-19 Vaccine ( season) [facility] Start: 03-30-2023 FUV, Provider: Benny Holguin, Status: Pen, Time: 10:30 AM FUV, Provider: Benny Holguin, Status: Pen, Time: 10:30 AM [facility]Xenia 250 DO Work Phone: Start: 03-09-2023 ECHO, Provider: JOHN PAUL CHANEL [facility] ULTRASOUND 01,[id number], Status: Pen, Time: 10:45 AM ECHO, Provider: XENIA [facility] ULTRASOUND 01,[id number], Status: Pen, Time: 10:45 AM -[facility]Xenia 250 DO Work Phone: Start: 03-09-2023 STRESS NUC, Provider : XENIA [facility] NUCLEAR 01,[id number], Status: Pen, Time: 8:30 AM STRESS NUC, Provider: XENIA [facility] NUCLEAR 01,[id number], Status: Pen, Time: 8:30 AM -[facility] 250 DO Work Phone: Start: 04-26-2021 DTaP/Tdap/Td Vaccine s (1 - Tdap) DTaP/Tdap/Td Vaccines (1 - Tdap) [facility] Start: 2018 Screening for osteoporosis Bone Density Screening [facility] Start: 2013 Hepatitis B Vaccines (1 of 3 - Risk 3-dose series) Hepatitis B Vaccines (1 of 3 - Risk 3-dose series) [facility] Start: 1998 Diabetes Screening Diabetes Screenin g [facility] Start: 1998 Lipid panel Lipid Screening [facility] Start: 1998 Screening for malign ant neoplasm of colon [facility] Start: 1993 Screening for malign ant neoplasm of breast [facility] Start: 1972 Hepatitis A Vaccines (1 of 2 - Risk 2-dose series) Hepatitis A Vaccines (1 of 2 - Risk 2-dose series) [facility] Start: 1971 Anxiety Screening Anxiety Screening [facility] Start: 1971 Depression Screening Depression Scre ening [facility] Start: 1971 Diabetes mellitus screening Diabetes Screening [facility] Start: 1971 Hepatitis C screening Hepatitis C Sc reening [facility] Start: 1964 Screening for malign ant neoplasm of cervix Cervical Cancer Screening [facility] Start: 1953 Lipid panel Lipid Panel [facility] Start: 1953 Medicare Annual Well ness Visit Medicare Annual Wellness Visit (AWV) [facility] Start: 1953 Screening for malign ant neoplasm of colon [facility] Start: 1953 Screening for osteoporosis Bone Density Scan [facility] Comprehensive metabo lic 2000 panel - Serum or Plasma COMPREHENSIVE METABOLIC PANEL Lab Routine Malignant neoplasm of overlapping sites of bladder (HCC) 04/07/2024 11:35 AM EDT [facility] End: 07-20-2025 CT Abdomen W contrast IV CT ABDOMEN W IVCON Radiology Routine Malignant neoplasm of urinary bladder, unspecified site (HCC) Malignant neoplasm of overlapping sites of bladder (HCC) 1 Occurrences starting 06/20/2024 until 07/20/2025 [facility] Comment on above: 1 Occurrences starti ng 06/20/2024 until 07/20/2025 End: 07-20-2025 CT Chest W contrast IV CT CHEST W IVCON Radiology Routine Malignant neoplasm of urinary bladder, unspecified site (HCC) 1 Occurrences starting 06/20/2024 until 07/20/2025 [facility] Comment on above: 1 Occurrences starti ng 06/20/2024 until 07/20/2025 End: 07-20-2025 CT Kidney WO and W contrast IV CT UROGRAM WO/W IVCON Radiology Routine Malignant neoplasm of urinary bladder, unspecified site (HCC) 1 Occurrences starting 06/20/2024 until 07/20/2025 [place] Work Phone: Comment on above: 1 Occurrences starti ng 06/20/2024 until 07/20/2025 IR PORTOCATH PLACEMENT IR PORTOC ATH PLACEMENT Radiology Routine Malignant neoplasm of overlapping sites of bladder (HCC) Ordered: 04/08/2024 [place] Work Phone: Comment on above: Ordered: 04/08/2024 Immunizations Immunization Date Immunization Notes Care Provider Puja sun 05-24-2024 influenza, high dose seasonal, preservative-free Krystal Paige [facility] 04-22-2024 respiratory syncytia l virus (RSV) vaccine, bivalent (ABRYSVO) Krystal Paige [facility] 05-26-2023 ABRYSVO - Respirator y syncytial virus (RSV), vaccine, bivalent, protein subunit RSV prefusion F, diluent reconstituted, 0.5 mL, PF Shaikh Jerrell SINGLETARY Work Phone: [facility] 05-24-2023 influenza virus vaccine, unspecified formulation Lin Dalton [facility] 05-24-2023 Influenza, High-dose Seasonal, Quadrivalent, Preservative Free Shaikh Jerrell SINGLETARY Work Phone: [facility] 05-24-2023 Pneumococcal Conjuga te PCV 20 Shaikh Jerrell SINGLETARY Work Phone: [facility] 05-03-2023 pneumococcal conjuga te 20-valent (Prevnar 20) 0.5 ML vaccine Shaikh Jerrell SINGLETARY Work Phone: [facility] 10-27-2022 zoster vaccine recombinant Shaikh Jerrell Work Phone: [facility] 250 DO Work Phone: 08-27-2022 zoster vaccine recombinant Shaikh Jerrell Work Phone: [facility] 250 DO Work Phone: 06-03-2022 Fluzone High-Dose Quadrivalent 0.7 ML Intramuscular Suspension Prefilled Syringe Shaikh Jerrell Work Phone: [facility] 250 DO Work Phone: 06-03-2022 influenza virus vaccine, unspecified formulation Lin Sha [facility] 06-03-2022 influenza, seasonal, injectable Benny Holguin MD Work Phone: [facility] Work Phone: 08-03-2021 Pfizer-BioNTech COVID-19 Vacc 30 MCG/0.3ML Intramuscular Suspension Tse Jerrell Work Phone: [facility] 06-02-2021 Fluzone High-Dose Quadrivalent 0.7 ML Intramuscular Suspension Prefilled Syringe Shaikh Jerrell Work Phone: [facility] 250 DO Work Phone: 06-02-2021 influenza virus vaccine, unspecified formulation Lin Dalton [facility] 04-25-2021 diphtheria, tetanus toxoids and pertussis vaccine Tse Jerrell Work Phone: [facility] 04-25-2021 tetanus and diphther ia toxoids, adsorbed, preservative free, for adult use (2 Lf of tetanus toxoid and 2 Lf of diphtheria toxoid) Benny Holguin MD Work Phone: [facility] Work Phone: 12-23-2020 Pfizer-BioNTech COVID-19 Vacc 30 MCG/0.3ML Intramuscular Suspension Tse Jerrell Work Phone: [facility] 12-02-2020 Pfizer-BioNTech COVID-19 Vacc 30 MCG/0.3ML Intramuscular Suspension Tse Marywaalvin Work Phone: [facility] 07-21-2014 influenza virus vaccine, unspecified formulation Lin Dalton [facility] 07-21-2014 influenza, seasonal, injectable Tse Fawwad Work Phone: [place] [address] DO Work Phone: 06-21-2013 influenza virus vaccine, unspecified formulation Lin Lue [facility] 06-21-2013 influenza, seasonal, injectable Tse Faw[place] Work Phone: [place] [address] DO Work Phone: 08-31-2012 influenza virus vaccine, unspecified formulation Lin Lue [facility] 08-31-2012 influenza, seasonal, injectable, preservative free Tse Fawwad Work Phone: [place] [address] DO Work Phone: Payers Date Payer Category Payer Self-pay [id number] 2018 Medicare [id number] 2018 Private Health Insurance [id number] 1959 Medicare [id number] 1959 Private Health Insurance [facility] [id number] 1953 Unknown [id number] 2.16.84 0.1.901214.3.579.2.593 1953 Unknown [id number] 2.16.84 0.1.585859.3.579.2.593 1953 Unknown [id number] 2.16.84 0.1.378722.3.579.2.593 1953 Unknown [id number] 2.16.84 0.1.119977.3.579.2.593 1953 Unknown [id number] 2.16. 840.1.128759.3.579.2.356 1953 Unknown [id number] 2.16. 840.1.235058.3.579.2.356 1953 Unknown [id number] 2.16. 840.1.077701.3.579.2.356 1953 Unknown [id number] 2.16.8 40.1.663607.3.579.2.1068 1953 Unknown [id number] 2.16.8 40.1.380047.3.579.2.1244 1953 Unknown [id number] 2.16.8 40.1.639362.3.579.2.727 1953 Unknown [id number] 2.16.8 40.1.213715.3.579.2.727 1953 Unknown [id number] 2.16.8 40.1.209841.3.579.2.727 1953 Unknown [id number] 2.16.8 40.1.095455.3.579.2.727 1953 Unknown [id number] 2.16.8 40.1.761424.3.579.2.727 1953 Unknown [id number] 2.16.8 40.1.037617.3.579.2.727 1953 Unknown [id number] 2.16.8 40.1.808917.3.579.2.727 1953 Unknown [id number] 2.16.84 0.1.031717.3.579.2.1259 1953 Unknown [id number] 2.16.84 0.1.824567.3.579.2.1259 1953 Unknown [id number] 2.16.84 0.1.119510.3.579.2.1259 1953 Unknown [id number] 2.16.84 0.1.925476.3.579.2.1259 1953 Unknown [id number] 2.16.84 0.1.206971.3.579.2.1259 1953 Unknown [id number] 2.16.84 0.1.584405.3.579.2.1259 1953 Unknown [id number] 2.16.84 0.1.199684.3.579.2.1259 1953 Unknown [id number] 2.16.840 .1.505470.3.579.2.1259 Medicaid [id number] Private Health Insurance [id number] Unknown Unknown [id number] 2.16.8 40.1.170528.3.579.2.531 Social History Date Type Detail Facility Start: 08-29-2023 End: 03-31-2024 No caffeine use No caffeine use [place] [address] DO Work Phone: Start: 08-29-2023 End: 03-31-2024 Tobacco smoking status [facility] Ex-smoker [facility] Start: 06-28-1975 End: 06-28-2020 History of tobacco use Current smoker [facility] Start: 06-28-1975 End: 06-28-2020 History of tobacco use Cigarette Smoker [facility] Start: 08-29-2023 End: 03-31-2024 Tobacco use and exposure Smokeless tobacco non-user [facility] Start: 08-29-2023 End: 07-16-2024 Alcohol intake Lifetime non-drinker (finding) [facility] Start: 08-29-2023 End: 03-31-2024 Tobacco use panel [facility] Start: 07-18-2023 Alcohol Comment caffeine: 1-2 cups per day [facility] Start: 1955 Sex Assigned At Not on file [facility] Start: 11-18-2023 End: 11-28-2023 Exposure to SARS-CoV-2 (event) Not sure [facility] Start: 1955 Sex Assigned At Female [facility] Tobacco smoking status Never [facility] Tobacco smoking status NHIS Tobacco smoking consumption unknown [facility] Work Phone: NEGATED: Highlighted rowStart: NINF [...] Facility 02-29-2024 Functional Status N/A [facility] 02-01-2024 Functional Status N/A [facility] Clinical Notes 01-26-2023 to 07-16-2024 Rd Ford [...] evaluation and treatment. documented in this encounter [facility] 07-16-[address] Ford NP - 07/16/2024 2:30 PM EST documented in this encounter [facility] 07-15-2024 Telephone encounter Note CYNTHIA:07/01/2024 NOV:10/01/2024 [facility] 07-15-2024 Miscellaneous Notes CYNTHIA:07/01/2024 NOV:10/01/2024 documented in this encounter [facility] 07-11-2024 History of Present illness Narrative [...] PATIENT PRESENTS WITH AN IMPLANTABLE OR ATTACHED NIKE ATHLETE: No RADIOLOGY DEPARTMENT: CT; Exam(s) Completed: Chest and Urogram PERIPHERAL IV DATA: Site assessment: Clean,Dry and Intact, Site disposition Discontinued SIGNED BY: RT Jackelyn(R) July 11, 2024 10:26 AM documented in this encounter [facility] 07-11-2024 Note HNO ID: [id number] Author: LORI HOBBS RN Service: ? Author [...] DATE: July 11, 2024 TIME: 10:08 AM [facility] 07-11-2024 Note HNO ID: [id number] Author: SERGEI EISENBERG RT(R) Service: ? Author [...] PATIENT PRESENTS WITH AN IMPLANTABLE OR ATTACHED NIKE ATHLETE: No RADIOLOGY DEPARTMENT: CT; Exam(s) Completed: Chest and Urogram PERIPHERAL IV DATA: Site assessment: Clean,Dry and Intact, Site disposition Discontinued SIGNED BY: RT Jackelyn(R) July 11, 2024 10:26 AM [facility] 07-01-2024 History of Present illness Narrative [...] [facility]- Urology Dr. Ware- Oncology[facility] Dr. Howard Finished Chemotherapy [...] 300 MG capsule documented in this encounter [facility] 06-26-2024 Note Education (NUTRSA) SVETLANA ADRIAN ([id number]) 1955 F Date Time Provider Department 11/14/24 [...] Encounter Status:Closed by KATIA GOSS on 06/26/24 [facility] 06-26-2024 Note HNO ID: [id number] Author: KATIA GOSS, ROMA Service: ? Author Type: Registered Dietitian Type: Progress Notes Filed: 06/26/2024 15:20 Note Text: Oncology Nutrition Therapy Progress Note I have communicated my name and active licensure. The patient's identity and physical location were verified at the time of this visit. Either the patient or their legal insurance claim representative has been informed of the risks [...] minutes Signed by: Katia Goss RDN, RENETTA [facility] 06-26-2024 History of Present illness Narrative Oncology Nutrition Therapy Progress Note I have communicated my name and active licensure. The patient's identity and physical location were verified at the time of this visit. Either the patient or their legal insurance claim representative has been informed of the risks [...] Goss RDN, LD documented in this encounter [facility] 06-24-2024 Telephone encounter Note Patient is scheduled 07/30. Rd Leblanc [facility] 06-24-2024 Miscellaneous Notes Patient is scheduled 07/30. Rd Leblanc Patient is now ready to be referred back to Dr. Ware for surgery. Thank you! Rd Leblanc documented in this encounter [facility] 06-23-2024 Telephone encounter Note Please sign pended Cre for upcoming CT-pt on nephrotoxic chemo Thank You! Lori Hobbs RN [facility] 06-23-2024 Miscellaneous Notes Please sign pended Cre for upcoming CT-pt on nephrotoxic chemo Thank You! Lori Hobbs, RN documented in this encounter [facility] 06-20-2024 Note HNO ID: [id number] Author: KRYSTAL PAIGE LSW Service: ? Author Type: Stagecraft Teacher Type: Progress Notes Filed: 06/20/2024 14:49 Note Text: Social Work Problem Referral Note INFORMATION/REFERRAL : Svetlana Adrian 69 year old female was referred by nurse Amber Celis APRN, CNP to [facility] Social Work for the following reason(s): financial [...] is understandably upset. Patient mentioned that [facility] ([facility]) is helping her with a [...] needs transportation assistance for any/all appointments at [facility] (Urology). SW will call Patient to discuss resources and options for transportation. Patient may need to have [employer] help her with transportation costs instead of a washer and dryer. SW will review options and get the Patient's input. Assigned SW listed in Care Team tab: Yes SANJANA Ornelas [facility] 06-20-2024 History of Present illness Narrative Social Work Problem Referral Note INFORMATION/REFERRAL : Svetlana Adrian 69 year old female was referred by nurse Amber Celis APRN, CNP to [facility] Social Work for the following reason(s): financial [...] is understandably upset. Patient mentioned that [facility] ([facility]) is helping her with a new [...] car is not reliable. She has contacted [facility] about a program that may help her with a vehicle? SW later learned after the Patient had left that she needs transportation assistance for any/all appointments at [facility] (Urology). SW will call Patient to discuss resources and options for transportation. Patient may need to have [employer] help her with transportation costs instead of a washer and dryer. SW will review options and get the Patient's input. Assigned SW listed in Care Team tab: Yes SANJANA Ornelas documented in this encounter [facility] 06-20-2024 Telephone encounter Note Patient is now ready to be referred back to Dr. Ware for surgery. Thank you! Rd Leblanc [facility] 06-20-2024 History of Present illness Narrative Images from the original note were not included. NAME: Svetlana Adrian [facility] NO.: [id number] DATE OF SERVICE: June 20, 2024 (Caleb) [...] after her surgery. Will continue to keep director of social services involved for patient needs. Patient will contact [...] Bladder mass, transurethral resection: Dr. Dalton at [facility] - High-grade urothelial carcinoma with lamina propria [...] increased fatigue since starting chemotherapy. 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 Weight is down [...] neoadjuvant chemotherapy with gemcitabine + cisplatin vs. Lincoln / Carbo She denies use of supplemental [...] which included preparing to see the patient, [id number] patient care, completing clinical documentation, obtaining and/or reviewing separately obtained history, performing a medically appropriate examination, counseling and educating the patient/family/caregiver, ordering medications, tests, or procedures, independently interpreting results (not separately reported), and communicating results to the patient/family/caregiver. Masha Knight APRN.[facility] Provided at: [place], [place] CC: Lin Ware documented in this encounter [facility] 06-20-2024 Note HNO ID: [id number] Author: MASHA KNIGHT APRN.KAIAWHINA KURA KAUPAPA MAORI Service: ? Author Type: Nurse Practitioner Type: Progress Notes Filed: 06/20/2024 16:10 Note Text: NAME: Svetlana Adrian [facility] NO.: [id number] DATE OF SERVICE: June 20, 2024 (Caleb) [...] Will arrange for a follow-up with Dr. Alejanrdo Ware to discuss surgery after CT scans complete. Plan will be to see the patient back after her surgery. Will continue to keep director of social services involved for patient needs. Patient will contact [...] Bladder mass, transurethral resection: Dr. Dalton at [facility] - High-grade urothelial carcinoma with lamina propria [...] increased fatigue since starting chemotherapy. 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 Weight is down [...] baking soda. U (more content not included)... [facility] 06-06-2024 Note Education (NUTRSA) SVETLANA ADRIAN ([id number]) 1955 F Date Time Provider Department 06/06/24 [...] Encounter Status:Closed by KATIA GOSS on 06/06/24 [facility] 06-06-2024 Note HNO ID: [id number] Author: KATIA GOSS RD Service: ? Author Type: Registered Dietitian Type: Progress Notes Filed: 06/06/2024 14:29 Note Text: Oncology Nutrition Therapy Progress Note I have communicated my name and active licensure. The patient's identity and physical location were verified at the time of this visit. Either the patient or their legal insurance claim representative has been informed of the risks [...] minutes Signed by: Katia Goss RDN, RENETTA [facility] 06-06-2024 History of Present illness Narrative Oncology Nutrition Therapy Progress Note I have communicated my name and active licensure. The patient's identity and physical location were verified at the time of this visit. Either the patient or their legal insurance claim representative has been informed of the risks [...] Goss RDN, LD documented in this encounter [facility] 05-30-2024 Note HNO ID: [id number] Author: KRYSTAL PAIGE LSW Service: ? Author Type: Stagecraft Teacher Type: Progress Notes Filed: 05/30/2024 16:23 Note [...] Yes Patient's brought in a letter from [facility] requesting additional information in order to complete the Patient's Medicaid application. Copies made of the original documents and given to Patient's . No other needs or concerns were identified. SW will remain available and will follow up as appropriate. SANJANA Ornelas [facility] 05-30-2024 Note HNO ID: [id number] Author: KRYSTAL PAIGE LSW Service: ? Author Type: Stagecraft Teacher Type: Progress Notes Filed: 05/30/2024 16:50 Note Text: Opened in error. SANJANA Ornelas [facility] [facility] 05-30-2024 History of Present illness Narrative [...] Yes Patient's brought in a letter from [facility] requesting additional information in order to complete the Patient's Medicaid application. Copies made of the original documents and given to Patient's . No other needs or concerns were identified. SW will remain available and will follow up as appropriate. SANJANA Ornelas documented in this encounter [facility] 05-30-2024 History of Present illness Narrative Opened in error. SANJANA Ornelas documented in this encounter [facility] 05-30-2024 Instructions Lee Dunn MD - 05/30/2024 10:26 AM EDT Treatment today for C3D1 Treatment next week for C3D8. RTC in 3 weeks for labs, clinician and treatment C4D1 documented in this encounter [facility] 05-30-2024 History of Present illness Narrative Images from the original note were not included. NAME: Svetlana Adrian CLINIC NO.: [id number] DATE OF SERVICE: May 30, 2024 (Sagar) [...] invasive bladder cancer s/p TURBT with Dr. Sah hoffmann-January 2024, with no evidence of metastatic [...] Bladder mass, transurethral resection: Dr. Dalton at [facility] - High-grade urothelial carcinoma with lamina propria [...] increased fatigue since starting chemotherapy. 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 Weight is down [...] neoadjuvant chemotherapy with gemcitabine + cisplatin vs. Lincoln / Carbo She denies use of supplemental [...] which included preparing to see the patient, [id number] patient care, completing clinical documentation, obtaining and/or reviewing separately obtained history, performing a medically appropriate examination, counseling and educating the patient/family/caregiver, ordering medications, tests, or procedures, independently interpreting results (not separately reported), communicating results to the patient/family/caregiver, and care coordination (not separately reported). Lee Dunn MD, CPE Hematology and Oncology Services Provided at: [place], [place] CC: Lin Ware documented in this encounter [facility] 05-30-2024 Note HNO ID: [id number] Author: LEE DUNN MD Service: ? Author Type: Physician Type: Progress Notes Filed: 05/30/2024 16:57 Note Text: NAME: Svetlana Adrian CLINIC NO.: [id number] DATE OF SERVICE: May 30, 2024 (Sagar) [...] Bladder mass, transurethral resection: Dr. Dalton at [facility] - High-grade urothelial carcinoma with lamina propria [...] increased fatigue since starting chemotherapy. 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 Weight is down [...] neoadjuvant chemotherapy with gemcitabine + cisplatin vs. Lincoln / Carbo She denies use of supplemental [...] 14.2 oz (44. (more content not included)... [facility] 05-23-[address] - [...] peanut butter, etc. documented in this encounter [facility] 05-23-2024 Note Education (NUTRSA) SVETLANA ADRIAN ([id number]) 1955 F Date Time Provider Department 05/23/24 [...] Encounter Status:Closed by KATIA GOSS on 05/23/24 [facility] 05-23-2024 Note HNO ID: [id number] Author: KATIA GOSS RD Service: ? Author Type: Registered Dietitian Type: Progress Notes Filed: 05/23/2024 15:26 Note Text: Oncology Nutrition Therapy Reassessment I have communicated my name and active licensure. The patient's identity and physical location were verified at the time of this visit. Either the patient or their legal insurance claim representative has been informed of the risks [...] Dosing Weight: 46 kg Estimated kilocalorie needs: 2926-7404 kilocalories determined by 30-35 kcal/kg Estimated protein needs: 55-69 grams determined by 1.2-1.5 g/kg Dosing weight Estimated fluid needs: ~0467-4101 milliliters based on 1 mL per kcal [...] sulfate (ZINC-15 O (more content not included)... [facility] 05-23-2024 History of Present illness Narrative Oncology Nutrition Therapy Reassessment I have communicated my name and active licensure. The patient's identity and physical location were verified at the time of this visit. Either the patient or their legal insurance claim representative has been informed of the risks [...] Dosing Weight: 46 kg Estimated kilocalorie needs: 3033-5921 kilocalories determined by 30-35 kcal/kg Estimated protein needs: 55-69 grams determined by 1.2-1.5 g/kg Dosing weight Estimated fluid needs: ~9362-5595 milliliters based on 1 mL per kcal [...] Goss RD, LD documented in this encounter [facility] 05-16-2024 Note HNO ID: [id number] Author: KRYSTAL PAIGE LSW Service: ? Author Type: Stagecraft Teacher Type: Progress Notes Filed: 05/16/2024 15:03 Note Text: SOCIAL WORK FOLLOW UP NOTE: [facility] Date of service:05/16/24 Svetlana Adrian is being seen for a follow up social work visit. Today's visit includes: spouse and patient TOPICS ADDRESSED: community resources PLAN: Continue follow up as needed Assigned SW listed in Care Team tab: Yes Patient report that she has connected with the [facility]. They provided her with gas cards. Patient is still waiting to hear from Medicaid if she was approved or denied. Patient denied any immediate needs or concerns. SW will remain available and will follow up as appropriate. SANJANA Ornelas [facility] 05-16-2024 History of Present illness Narrative SOCIAL WORK FOLLOW UP NOTE: [facility] Date of service:05/16/24 Svetlana Adrian is being seen for a follow up social work visit. Today's visit includes: spouse and patient TOPICS ADDRESSED: community resources PLAN: Continue follow up as needed Assigned SW listed in Care Team tab: Yes Patient report that she has connected with the [facility]. They provided her with gas cards. Patient is still waiting to hear from Medicaid if she was approved or denied. Patient denied any immediate needs or concerns. SW will remain available and will follow up as appropriate. SANJANA Ornelas documented in this encounter [facility] 05-16-2024 Note HNO ID: [id number] Author: MALORIE WRIGHT RN Service: ? Author Type: Registered Nurse Type: Progress Notes Filed: 05/16/2024 14:50 Note Text: Lab Mag 1.3 K+ 3.4 CrCl 56.8 and slight elevation with LFT's. Message sent to Sophia Dupree PA-C/Dr Dunn for notification. Malorie Wright RN [facility] 05-16-2024 History of Present illness Narrative Lab Mag 1.3 K+ 3.4 CrCl 56.8 and slight elevation with LFT's. Message sent to Sophia Dupree PA-C/Dr Dunn for notification. Malorie Wright RN documented in this encounter [facility] 05-09-2024 History of Present illness Narrative NAME: Svetlana Adrian [facility] NO.: [id number] DATE OF SERVICE: May 08, 2024 (Sandi) [...] Bladder mass, transurethral resection: Dr. Dalton at [facility] - High-grade urothelial carcinoma with lamina propria [...] increased fatigue since starting chemotherapy. 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 Weight is down [...] neoadjuvant chemotherapy with gemcitabine + cisplatin vs. Lincoln / Carbo She denies use of supplemental [...] CC: Lin Ware documented in this encounter [facility] 05-09-2024 Note HNO ID: [id number] Author: KAMILLE FRENCH APRN.CNP Service: ? Author Type: Nurse Practitioner Type: Progress Notes Filed: 05/09/2024 11:47 Note Text: NAME: Mercedgordy Svetlana [facility] NO.: [id number] DATE OF SERVICE: May 08, 2024 (Sandi) [...] Bladder mass, transurethral resection: Dr. Dalton at [facility] - High-grade urothelial carcinoma with lamina propria [...] increased fatigue since starting chemotherapy. 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 Weight is down [...] neoadjuvant chemotherapy with gemcitabine + cisplatin vs. Lincoln / Carbo She denies use of supplemental [...] atraumatic with no (more content not included)... [facility] 05-02-2024 Note Education (NUTRSA) SVETLANA ADRIAN ([id number]) 1955 F Date Time Provider Department 05/02/24 3:00 PM KATIA GOSS Reason for Visit: Nutrition Telephone [2014] Primary Visit Diagnosis:Malignant neoplasm of overlapping sites of bladder (HCC) [C67.8] Other Visit Diagnosis:Severe protein-calorie malnutrition (HCC) [E43] During your visit today, we recorded the following information about you: Allergies As of Date: 05/02/2024 (No Known Allergies) Date Reviewed: 05/02/2024 Reviewed by: Katai Goss RD - Fully Assessed Prescriptions as [...] Encounter Status:Closed by KATIA GOSS on 05/02/24 [facility] 05-02-2024 Note HNO ID: [id number] Author: KATIA GOSS RD Service: ? Author Type: Registered Dietitian Type: Progress Notes Filed: 05/02/2024 15:20 Note Text: Oncology Nutrition Therapy Progress Note I have communicated my name and active licensure. The patient's identity and physical location were verified at the time of this visit. Either the patient or their legal insurance claim representative has been informed of the risks [...] minutes Signed by: Katia Goss RDN, RENETTA [facility] 05-02-2024 History of Present illness Narrative Oncology Nutrition Therapy Progress Note I have communicated my name and active licensure. The patient's identity and physical location were verified at the time of this visit. Either the patient or their legal insurance claim representative has been informed of the risks [...] Goss RDN, LD documented in this encounter [facility] 04-25-2024 Note HNO ID: [id number] Author: KRYSTAL PAIGE LSW Service: ? Author Type: Stagecraft Teacher Type: Progress Notes Filed: 04/25/2024 16:06 Note Text: SOCIAL WORK FOLLOW UP NOTE: [facility] Date of service:04/25/24 Svetlana Adrian is [...] will follow up as appropriate. SANJANA Ornelas [facility] 04-25-2024 History of Present illness Narrative SOCIAL WORK FOLLOW UP NOTE: [facility] Date of service:04/25/24 Svetlana Adrian is [...] appropriate. SANJANA Ornelas documented in this encounter [facility] 04-25-2024 Note HNO ID: [id number] Author: ASHLEY MARTINEZ RN Service: ? Author [...] prescribed. Pt verbalizes understanding. Ashley Martinez RN [facility] 04-25-2024 History of Present illness Narrative [...] Ashley Martinez RN documented in this encounter [facility] 04-25-2024 Note HNO ID: [id number] Author: ASHLEY MARTINEZ, RN Service: ? Author [...] signature. Tx nurse informed. Ashley Martinez RN [facility] 04-25-2024 Instructions Leydi Ledezma - 04/25/2024 9:11 AM EDT GemCis C1 D8 today Follow up with photographs curator RTC for C2 D1 in 2 weeks (05/09) Labs same day Can see Doris RTC with me for C3 in 5 weeks Labs same day documented in this encounter [facility] 04-25-2024 History of Present illness Narrative Images from the original note were not included. NAME: Svetlana Adrian CLINIC NO.: [id number] DATE OF SERVICE: April 25, 2024 (Sagar) [...] 25 mg/m2 each day Follow up with photographs curator RTC for C2 D1 in 2 weeks [...] Bladder mass, transurethral resection: Dr. Dalton at [facility] - High-grade urothelial carcinoma with lamina propria [...] neoadjuvant chemotherapy with gemcitabine + cisplatin vs. Lincoln / Carbo She denies use of supplemental [...] which included preparing to see the patient, [id number] patient care, completing clinical documentation, obtaining and/or reviewing separately obtained history, performing a medically appropriate examination, counseling and educating the patient/family/caregiver, ordering medications, tests, or procedures, independently interpreting results (not separately reported), communicating results to the patient/family/caregiver, and care coordination (not separately reported). Lee Dunn MD, CPE Hematology and Oncology Services Provided at: [place], [place] Scribe Attestation: This note was scribed [...] CC: Lin Ware documented in this encounter [facility] 04-25-2024 Note HNO ID: [id number] Author: LEE DUNN MD Service: ? Author Type: Physician Type: Progress Notes Filed: 04/26/2024 08:40 Note Text: NAME: Svetlana Adrian [facility] NO.: [id number] DATE OF SERVICE: April 25, 2024 (Sagar) [...] 25 mg/m2 each day Follow up with photographs curator RTC for C2 D1 in 2 weeks [...] Bladder mass, transurethral resection: Dr. Dalton at [facility] - High-grade urothelial carcinoma with lamina propria [...] neoadjuvant chemotherapy with gemcitabine + cisplatin vs. Lincoln / Carbo She denies use of supplemental [...] by mouth. pantop (more content not included)... [facility] 04-24-2024 Note Education (NUTRSA) SVETLANA ADRIAN ([id number]) 1955 F Date Time Provider Department 04/24/24 [...] Encounter Status:Closed by KATIA GOSS on 04/25/24 [facility] 04-24-2024 Note HNO ID: [id number] Author: KATIA GOSS RD Service: ? Author Type: Registered Dietitian Type: Progress Notes Filed: 04/25/2024 08:26 Note Text: Oncology Nutrition Therapy Progress Note I have communicated my name and active licensure. The patient's identity and physical location were verified at the time of this visit. Either the patient or their legal insurance claim representative has been informed of the risks and benefits of -- and alternatives to -- treatment through a remote evaluation and consents to proceed with the evaluation remotely. RECOMMENDED MALNUTRITION DIAGNOSIS: SEVERE PROTEIN-CALORIE MALNUTRITION per RD on 04/17/2024 2:15p- called patient for scheduled phone appointment. No answer, LVM with return contact information. Signed by: Katia Goss RDN, LD [facility] 04-24-2024 History of Present illness Narrative Oncology Nutrition Therapy Progress Note I have communicated my name and active licensure. The patient's identity and physical location were verified at the time of this visit. Either the patient or their legal insurance claim representative has been informed of the risks and benefits of -- and alternatives to -- treatment through a remote evaluation and consents to proceed with the evaluation remotely. RECOMMENDED MALNUTRITION DIAGNOSIS: SEVERE PROTEIN-CALORIE MALNUTRITION per RD on 04/17/2024 2:15p- called patient for scheduled phone appointment. No answer, LVM with return contact information. Signed by: Katia Goss RDN, LD documented in this encounter [facility] 04-24-2024 Telephone encounter Note Patient has an OTV appointment on 04/25. Labs drawn 04/18. Please place lab orders if needed. Gabrielle Li MA [facility] 04-24-2024 Miscellaneous Notes Patient has an OTV appointment on 04/25. Labs drawn 04/18. Please place lab orders if needed. Gabrielle Li MA documented in this encounter [facility] 04-23-2024 Telephone encounter Note CYCLE 1/DAY [...] activity. Pt has h/o COPD. 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 and Cough: Yes; productive white, yellow sputum [...] after hours number protocol. Sergei Carpenter RN [facility] 04-23-2024 Miscellaneous Notes CYCLE 1/DAY 1 POST [...] activity. Pt has h/o COPD. 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 and Cough: Yes; productive white, yellow sputum [...] Sergei Carpenter RN documented in this encounter [facility] 04-23-2024 Telephone encounter Note 2nd call placed to pt. No answer. Message left requesting call back. Sergei Carpenter RN [facility] 04-22-2024 Telephone encounter Note Update on patient from last week. Pt was in 04/18 for D1C1. CrCl [address] Cabello in your absence. Orders were given to hold Cisplatin that day. Pt received IVF and Lincoln only. Ashley Martinez RN [facility] 04-22-2024 Miscellaneous Notes Update on patient from last week. Pt was in 04/18 for D1C1. CrCl [address] Cabello in your absence. Orders were given to hold Cisplatin that day. Pt received IVF and Lincoln only. Ashley Martinez RN documented in this encounter [facility] 04-22-2024 Telephone encounter Note CYCLE 1/DAY 1 POST TREATMENT CALL Today's date: April 22, 2024 Treatment Regimen: Gemcitabine & Cisplatin C1D1 Date: 04/18/24 Called patient to follow-up on symptom management. Spoke with pt. Pt reports she is currently getting her RSV vaccine and requests to call RNCC back at a later time. Sergei Carpenter RN [facility] 04-18-2024 Note HNO ID: [id number] Author: KRYSTAL PAIGE LSW Service: ? Author Type: Stagecraft Teacher Type: Progress Notes Filed: 04/18/2024 15:51 Note [...] tab: Yes Medicaid application completed and mailed. [email or web address] [facility] application completed and faxed. SANJANA Ornelas [facility] 04-18-2024 History of Present illness Narrative [...] tab: Yes Medicaid application completed and mailed. [employer] [facility] application completed and faxed. SANJANA Ornelas documented in this encounter [facility] 04-17-[address] - [...] peanut butter, etc. documented in this encounter [facility] 04-17-2024 Note Education (NUTRSA) KAYLAHSVETLANA ([id number]) 1955 F Date Time Provider Department 04/17/24 2:15 PM KATIA GOSS Reason for Visit: Nutrition Telephone [2013] Primary Visit Diagnosis:Severe protein-calorie malnutrition (HCC) [E43] Other Visit Diagnosis:Malignant neoplasm of overlapping sites of bladder (HCC) [C67.8] Order(s):CONSULT TO ONCOLOGY NUTRITION [9362154] Order #: [id number]: 1 During your visit today, we recorded [...] Encounter Status:Closed by KATIA GOSS on 04/18/24 [facility] 04-17-2024 Note HNO ID: [id number] Author: KATIA GOSS RD Service: ? Author Type: Registered Dietitian Type: Progress Notes Filed: 04/18/2024 10:27 Note Text: Oncology Nutrition Therapy Initial Assessment I have communicated my name and active licensure. The patient's identity and physical location were verified at the time of this visit. Either the patient or their legal insurance claim representative has been informed of the risks [...] enhance flavor -referred to for evaluation for commercial helicopter pilot Nain ZARATE program at [facility] -incorporate calorie/protein boosting techniques at meals/snacks -whole [...] Dosing Weight: 49.2 kg Estimated kilocalorie needs: 5392-5472 kilocalories determined by 30-35 kcal/kg Estimated protein needs: 59-74 grams determined by 1.2-1.5 g/kg Dosing weight Estimated fluid needs: ~4094-6680 milliliters based on 1 mL per kcal [...] ondansetron (ZOFRAN) 8 (more content not included)... [facility] 04-17-2024 History of Present illness Narrative Oncology Nutrition Therapy Initial Assessment I have communicated my name and active licensure. The patient's identity and physical location were verified at the time of this visit. Either the patient or their legal insurance claim representative has been informed of the risks [...] enhance flavor -referred to for evaluation for commercial helicopter pilot Kinzel ONS program at [facility] -incorporate calorie/protein boosting techniques at meals/snacks -whole [...] Dosing Weight: 49.2 kg Estimated kilocalorie needs: 1177-7278 kilocalories determined by 30-35 kcal/kg Estimated protein needs: 59-74 grams determined by 1.2-1.5 g/kg Dosing weight Estimated fluid needs: ~6935-7462 milliliters based on 1 mL per kcal [...] Goss RD, RENETTA documented in this encounter [facility] 04-11-2024 Telephone encounter Note Patients called back and confirmed all appts. Rd Leblanc [facility] 04-11-2024 Miscellaneous Notes Patients called back [...] you Pt would like to meet w/ photographs curator. Order pended. Sergei Carpenter RN documented in this encounter [facility] 04-11-2024 Telephone encounter Note Patient has been scheduled for RV and treatment w/ JOHN on 04/25. Made a phone appt with Usha on 04/17 since she is not in the office on and Fridays. Called and left a message on patient's VM regarding these appts. Rd Leblanc [facility] 04-10-2024 Telephone encounter Note Patient is scheduled for treatment on 04/18, Usha not in the office. Patient still has a pending follow up appointment out for response from Dr. Bailey.. Will await further instructions for him for her next set of appointments to coordinate. Rd Leblanc [facility] 04-10-2024 Telephone encounter Note Clerical: Please pair nutrition appointment w/ her other appointments. Thanks! Sergei Carpenter RN [facility] 04-10-2024 Telephone encounter Note Signed orders. Thank you [facility] 04-10-2024 Telephone encounter Note Pt would like to meet w/ photographs curator. Order pended. Sergei Carpenter RN [facility] 04-10-2024 Note HNO ID: [id number] Author: SERGEI CARPENTER RN Service: ? Author Type: Registered Nurse Type: Progress Notes Filed: 04/10/2024 12:38 Note Text: Director Of Social Services Pre Chemo Patient identified by name and date of . YES Confirmed date and time for chemotherapy ? YES - Printed appointment reminder provided. Other appointments (labs, imaging) discussed? YES Discussed where to park (assistant director), charge for parking NO Discussed where to [...] port at this time. Sergei Carpenter RN [facility] 04-10-2024 History of Present illness Narrative Director Of Social Services Pre Chemo Patient identified by name and date of . YES Confirmed date and time for chemotherapy ? YES - Printed appointment reminder provided. Other appointments (labs, imaging) discussed? YES Discussed where to park (assistant director), charge for parking NO Discussed where to [...] Sergei Carpenter RN documented in this encounter [facility] 04-10-2024 Note HNO ID: [id number] Author: SERGEI CARPENTER RN Service: ? Author [...] minutes REFERRAL (RECOMMENDATION): Nutrition Sergei Carpenter RN [facility] 04-10-2024 Note Education (TERI) SVETLANA ADRIAN ([id number]) 1955 F Date Time Provider Department 04/10/24 SERGEI CARPENTER Reason for Visit: First Time Treatment Education [8364] Cmt: Gemcitabine AND Cisplatin Primary Visit Diagnosis:Malignant neoplasm of overlapping sites of bladder (HCC) [C67.8] Order(s):CONSULT TO SURVIVORSHIP [678472] Order #: [id number]: 1 FUTURE During your visit today, we [...] Encounter Status:Closed by SERGEI CARPENTER on 04/10/24 [facility] 04-09-2024 Telephone encounter Note Dagmar is scheduled for chemo ed on and New start chemo tx only on 04-18-24. No Dr. Appt at this time. Dagmar and were notified of these appts. [facility] 04-09-2024 Miscellaneous Notes Dagmar is scheduled [...] 04/07. Rd Leblanc documented in this encounter [facility] 04-08-2024 Telephone encounter Note Drop the compazine - can use dex or ativan as needed. [facility] 04-08-2024 Miscellaneous Notes Drop the compazine [...] Please fallonePamela RPh documented in this encounter [facility] 04-08-2024 Telephone encounter Note Patient reports [...] are non-interacting) Methotrimeprazine Please Pamela romero RPh [facility] 04-08-2024 Telephone encounter Note Pt will be in on for education. Scripts for antiemetics pended. Sergei Carpenter RN [facility] 04-08-2024 Miscellaneous Notes Pt will be in on for education. Scripts for antiemetics pended. Sergei Carpenter RN documented in this encounter [facility] 04-08-2024 Telephone encounter Note Working on getting patient scheduled for Chemo ed, New start chemotx and weekly lab and hydration. When does Dr Bailey need to see back for follow up? [facility] 04-08-2024 Telephone encounter Note Pt notified of sodium tabs and verbalizes understanding. Clerical: Please see John's scheduling instructions in the message below. Pt does not wish to schedule port placement at this time. Will discuss more at her ed appointment. Also, pt is not available on 04/16/24. Thanks! Sergei Carpenter RN T [facility] Work Phone: 04-08-2024 Telephone encounter Note Orders in for neoadjuvant therapy - needs salt tabs daily for low sodium. Start gem cis when approved and monitor weekly labs with hydration. Needs education and consent. May also need port. - can assess that at time of education or just get it placed. [facility] 04-08-2024 Telephone encounter Note John: please review and advise Usha Petersen RN [facility] 04-04-2024 Telephone encounter Note Images from the original note were not included. Patient scheduled for labs on Sunday, 04/07. [address] [place] [facility] 04-04-2024 Instructions Leydi Ledezma - 04/04/2024 4:42 PM EDT Plan for labs next week Triage to call results Anticipate moving forward with neoadjuvant chemotherapy - GemCis documented in this encounter [facility] 04-04-2024 History of Present illness Narrative Images from the original note were not included. NAME: Svetlana Adrian [facility] NO.: [id number] DATE OF SERVICE: April 04, 2024 (Abhyankar) [...] Bladder mass, transurethral resection: Dr. Dalton at [facility] - High-grade urothelial carcinoma with lamina propria [...] neoadjuvant chemotherapy with gemcitabine + cisplatin vs. Lincoln / Carbo She denies use of supplemental [...] which included preparing to see the patient, hjkr-ff-vabd patient care, completing clinical documentation, obtaining and/or reviewing separately obtained history, performing a medically appropriate examination, counseling and educating the patient/family/caregiver, ordering medications, tests, or procedures, independently interpreting results (not separately reported), communicating results to the patient/family/caregiver, and care coordination (not separately reported). Lee Dunn MD, CPE Hematology and Oncology Services Provided at: [facility], [place], [place] Scribe Attestation: This note was scribed [...] CC: Lin Ware documented in this encounter [facility] 04-04-2024 Note HNO ID: [id number] Author: LEE DUNN MD Service: ? Author Type: Physician Type: Progress Notes Filed: 04/07/2024 07:53 Note Text: NAME: Svetlana Adrian [facility] NO.: [id number] DATE OF SERVICE: April 04, 2024 (Sagar) [...] Bladder mass, transurethral resection: Dr. Dalton at [facility] - High-grade urothelial carcinoma with lamina propria [...] neoadjuvant chemotherapy with gemcitabine + cisplatin vs. Lincoln / Carbo She denies use of supplemental [...] week. atorvastatin (LIPIT (more content not included)... [facility] 03-19-2024 Note HNO ID: [id number] Author: ALEJANDRO WARE MD Service: ? Author Type: Physician Type: Progress Notes Filed: 03/19/2024 13:21 Note Text[facility] HISTORY AND PHYSICAL EXAM PATIENT [...] talked about medical complications, such as cardiac (IA, etc), respiratory (pneumonia, etc), renal (Acute kidney [...] we would ope (more content not included)... [facility] 02-29-2024 Evaluation + Plan note Diagnostic Tests PendingUrine Culture 02/29/24 [facility] 02-29-2024 Hospital Discharge instructions Patient Education 02/29/2024 [...] cells. Follow these instructions at home: Take ugpl-gjn-lpoijfy and prescription medicines only as told by [...] is important. Where to find more information [place] [employer] (ACS): cancer.org National Cancer [place] (NCI): cancer.gov Contact a health care provider [...] provider. Document Revised: 07/10/2022 Document Reviewed: 07/10/2022 [employer] Patient Education 2022 [employer]. Follow Up Care 02/01/2024 14:08:57 With:Sha SINGLETARY, KYLE Aguilera, URO Address: When: Unknown [facility] 02-29-2024 Note Patient Education Oncology Bladder Cancer [...] Follow these instructions at home: ? Take rfqy-hvs-sulfqqc and prescription medicines only as told by [...] important. Where to find more information ? [place] [employer] (ACS): cancer.org ? National Cancer [place] (NCI): cancer.gov Contact a health care provider [...] discuss any q (more content not included)... [facility] 02-01-2024 Hospital Discharge instructions Patient Education [...] cells. Follow these instructions at home: Take ljta-mwe-itlomcg and prescription medicines only as told by [...] is important. Where to find more information [place] [employer] (ACS): cancer.org National Cancer [place] (NCI): cancer.gov Contact a health care provider [...] provider. Document Revised: 07/10/2022 Document Reviewed: 07/10/2022 [employer] Patient Education 2022 [employer]. Follow Up Care 01/25/2024 10:58:20 With:Sha SINGLETARY, KYLE Aguilera, URO Address: When: Unknown [facility] 01-21-2024 Hospital Discharge instructions Patient Education [...] appointment for TURBT, possible left ureteral stent [facility] 01-21-2024 Note [id number] [facility] 01-21-2024 Note Cystoscopy ? Voiding after [...] you have a fever over 100 degrees. [facility] 01-17-2024 Hospital Discharge instructions Patient Education [...] including vitamins, herbs, eye drops, creams, and otyo-jzi-lvyrxpp medicines. Any problems you or family members [...] provider tells you to take them. Taking mnzb-mad-zuydvyt medicines, vitamins, herbs, and supplements. General instructions [...] provider. Document Revised: 08/04/2022 Document Reviewed: 08/04/2022 [employer] Patient Education 2022 [employer] 01/17/2024 10:58:38 Cystoscopy Cystoscopy Cystoscopy is [...] including vitamins, herbs, eye drops, creams, and xadv-ssh-okveqxd medicines. Any problems you or family members [...] provider tells you to take them. Taking jjln-dip-bsssbvw medicines, vitamins, herbs, and supplements. Tests You [...] Follow these instructions at home: Medicines Take pmuo-bgf-wepipyj and prescription medicines only as told by [...] provider. Document Revised: 04/12/2022 Document Reviewed: 03/11/2021 [employer] Patient Education 2022 [employer]. Follow Up Care 01/14/2024 11:56:48 With:Sha SINGLETARY, KYLE Aguilera, URO Address: When: Unknown [facility] 11-28-2023 History of Present illness Narrative Subjective [...] Up In Cardiology 3. Mixed hyperlipidemia 4. Ingtl-9-izlqusthwar deficiency (Multi) 5. Centrilobular emphysema (Multi) 6. [...] discussion and plan. documented in this encounter [facility] Work Phone: 11-28-2023 Instructions Iesha Roper [...] instructions on exercise. documented in this encounter [facility] Work Phone: 09-24-2023 History of Present illness [...] major depressive disorder without prior episode (HCC) ([facility]/HCC) - Primary Patient was seen last [...] weeks (around 11/05/2023). documented in this encounter [facility] 01-26-2023 History of Present illness Narrative [...] function test, lab work and remote echo1.Plan -[facility] 250 DO Work Phone: Chief complaint Narrative - Reported SVETLANA ADRIAN is being seen for a consultation for shortness of breath. [facility] 250 DO Work Phone: Evaluation + Plan note Future Appointments Appointment Date:01/18/2024 10:30:00 AM Scheduled Provider: Location:[facility] Appointment Type:Urology CALL PAT FT Appointment Date:01/21/2024 08:00:00 AM Scheduled Provider: Location:[facility] Appointment Type:Urology FT [facility] Evaluation + Plan note Future Appointments Appointment Date:01/18/2024 10:30:00 AM Scheduled Provider: Location:[facility] Appointment Type:Urology CALL PAT FT Appointment Date:01/21/2024 08:00:00 AM Scheduled Provider: Location:[facility] Appointment Type:Urology FT Diagnostic Tests PendingUrine Cytology ([facility]) 01/17/24 [facility] Evaluation + Plan note Future Appointments Appointment Date:02/29/2024 09:15:00 AM Scheduled Provider:Sha SINGLETARY, Lin Caldera Location:[facility] Appointment Type:URO Office Visit [facility] Evaluation + Plan note [facility] Evaluation note Diagnosis Primary hypertension (CMS/HCC)- Primary Unspecified essential hypertension documented in this encounter [facility] HealthcareEvaluation note* Diagnosis Current moderate episode of major depressive disorder without prior episode (HCC) (CMS/HCC)- Primary documented in this encounter [facility] HealthcareEvaluation note* Diagnosis Shortness of breath- Primary Essential hypertension Unspecified essential hypertension Mixed hyperlipidemia Jbcer-5-oecijvjkzvh deficiency (Multi) Dyefv-1-zgvwpayisgd deficiency Centrilobular emphysema (Multi) Former smoker Personal history of tobacco use, presenting hazards to health BMI 25.0-25.9,adult documented in this encounter [facility] Work Phone: Evaluation noteNo assessment information available [facility] Work Phone: Evaluation note* Diagnosis Malignant neoplasm of overlapping sites of bladder (HCC)- Primary Malignant neoplasm of other specified sites of bladder [facility] Diagnosis Malignant neoplasm of overlapping sites of bladder (HCC)- Primary Malignant neoplasm of other specified sites of bladder [facility] Diagnosis Malignant neoplasm of overlapping sites of bladder (HCC)- Primary Malignant neoplasm of other specified sites of bladder [facility] Diagnosis Malignant neoplasm of overlapping [...] severe protein-calorie malnutrition [facility] Diagnosis Malignant neoplasm of urinary bladder, unspecified site (HCC)- Primary Malignant neoplasm of overlapping sites of bladder (HCC) Malignant neoplasm of other specified sites of bladder [facility] Diagnosis RLS (restless legs syndrome)- [...] legs syndrome (RLS) documented in this encounter [facility] HealthcareEvaluation note* Diagnosis Malignant neoplasm of urinary bladder, unspecified site (HCC) Malignant neoplasm of overlapping sites of bladder (HCC) Malignant neoplasm of other specified sites of bladder [facility] Diagnosis RLS (restless legs syndrome)- [...] esophagitis Esophageal reflux documented in this encounter [facility] HealthcareEvaluation note* Diagnosis RLS (restless legs syndrome)- Primary Restless legs syndrome (RLS) COPD, severe ([facility]/HCC) Primary hypertension ([facility]) Unspecified essential hypertension Encounter for annual wellness exam in Medicare patient Hypokalemia Hypopotassemia Other hyperlipidemia ([facility]) Current moderate episode of major depressive disorder without prior episode (HCC) ([facility]) RLS (restless legs syndrome)- Primary Restless legs syndrome (RLS) COPD, severe ([facility]/HCC) Current moderate episode of major depressive disorder without prior episode (HCC) ([facility]) Primary hypertension ([facility]) Unspecified essential hypertension Current moderate episode of major depressive disorder without prior episode (HCC) ([facility])- Primary Current moderate episode of major depressive disorder without prior episode (HCC) ([facility])- Primary Psychophysiological insomnia Persistent disorder of initiating or maintaining sleep Acute cystitis with hematuria- Primary Current moderate episode of major depressive disorder without prior episode (HCC) ([facility]) Psychophysiological insomnia Persistent disorder of initiating or maintaining sleep Hyperlipidemia, unspecified ([facility]) Restless legs syndrome Restless legs syndrome (RLS) Primary hypertension ([facility]) Unspecified essential hypertension RLS (restless legs syndrome) Restless legs syndrome (RLS) Gastroesophageal reflux disease without esophagitis Esophageal reflux Urinary tract infection associated with indwelling urethral catheter, subsequent encounter- Primary RLS (restless legs syndrome)- Primary Restless legs syndrome (RLS) COPD, severe ([facility]/HCC) Dyspnea on exertion Other dyspnea and respiratory abnormality Primary hypertension ([facility]) Unspecified essential hypertension Gastroesophageal reflux disease without esophagitis Esophageal reflux Mixed hyperlipidemia ([facility]) Mixed hyperlipidemia Current moderate episode of major depressive disorder without prior episode (HCC) ([facility]) Bladder mass Neoplasm of uncertain behavior of bladder Tobacco abuse Tobacco use disorder COPD, severe ([facility]/HCC)- Primary Mixed hyperlipidemia ([facility]/HCC) Mixed hyperlipidemia Primary hypertension ([facility]) Unspecified essential hypertension Restless legs syndrome Restless legs syndrome (RLS) Dyspnea on exertion- Primary Other dyspnea and respiratory abnormality COPD, severe ([facility]/HCC) COPD exacerbation ([facility]) Obstructive chronic bronchitis with exacerbation documented in [...] her back in 6 months and follow-up [facility] 250 DO Work Phone: Hospital course Narrative No data available for this section [facility] Hospital Discharge instructions No data available for this section [facility] No data available for this section [facility] Reason for referral (narrative)* Consultation (Routine) - Authorized Specialty Diagnoses / Procedures Referred By Contac t Referred To Contact Cardiology Diagnoses Essential hypertension Procedures Follow Up In Cardiology Benny Holguin MD [address] [place] [address], [address] [address] Benny Holguin MD [address] [facility] 2, [address] [address] Referral ID Status Reason Start Date Expiration Date V isits Requested Visits Authorized [id number] Authorized 11/28/2023 11/27/2024 1 1 [facility] Work Phone: Summary Purpose Family History Unknown [...] W IVCON CT ABDOMEN W/CONTRAST Masha Knight, TAX REVENUE OFFICER.[address] [place] [address] [place] [address] Referral ID Status Reason Start Date Expiration Date Visits Requested Visits Authorized [id number] Authorized Auto-Generat ed Referral 06/20/2024 07/20/2025 1 1 Specialty Diagnoses / Procedures Referred By Contac t Referred To Contact CT IMAGING Diagnoses Malignant neoplasm of urinary bladder, unspecified site (HCC) Procedures CT CHEST W IVCON DIAGNOSTIC COMPUTED TOMOGRAPHY THORAX W/CONTRAST Masha Knight, TAX REVENUE OFFICER.[address] [place] [address] Ct Imaging [facility] Referral ID Status Reason Start Date Expiration Date Visits Requested Visits Authorized [id number] Authorized Auto-Generat ed Referral 06/20/2024 07/20/2025 1 1 Specialty Diagnoses / Procedures Referred By Contac t Referred To Contact CT IMAGING Diagnoses Malignant neoplasm of urinary bladder, unspecified site (HCC) Procedures CT UROGRAM WO/W IVCON CT ABD & PELVIS W/WO CONTRST 1+ BODY Masha Lowe, TAX REVENUE OFFICER.KAIAWHINA KURA KAUPAPA MAORI [address] [address] [place] [address] Referral ID Status Reason Start Date Expiration Date Visits Requested Visits Authorized [id number] Authorized Auto-Generat ed Referral 06/20/2024 07/20/2025 1 1 Referred by: Sha SINGLETARY, Lin Caldera Additional Source Comments INFORMATION SOURCE (unrecogn ized section and content) DATE CREATED AUTHOR 12/23/2022 [facility] DATE CREATED AUTHOR AUTHOR'S ORGANIZ ATION 03/31/2023 [facility] DATE CREATED AUTHOR AUTHOR'S ORGANIZ ATION 03/31/2023 [facility] DATE CREATED AUTHOR AUTHOR'S ORGANIZ ATION 04/13/2023 [facility] DATE CREATED AUTHOR AUTHOR'S ORGANIZ ATION 11/30/2023 [facility] DATE CREATED AUTHOR AUTHOR'S ORGANIZ ATION 02/01/2024 [facility] DATE CREATED AUTHOR AUTHOR'S ORGANIZ ATION 02/05/2024 [facility] DATE CREATED AUTHOR AUTHOR'S ORGANIZ ATION 03/01/2024 Reddy Crenshaw [facility] DATE CREATED AUTHOR AUTHOR'S ORGANIZ ATION 03/04/2024 [facility] DATE CREATED AUTHOR AUTHOR'S ORGANIZ ATION 03/21/2024 [facility] DATE CREATED AUTHOR AUTHOR'S ORGANIZ ATION 07/03/2024 [facility] EPIC DATE CREATED AUTHOR AUTHOR'S ORGANIZ ATION 07/13/2024 [facility] Care Teams (unrecognized sec tion and content) Battalion Chief Relationship Specialty Start Date End Date Shaikh Allan MD PCP - General Internal Medicine 06/07/23 Battalion Chief Relationship Specialty Start Date End Date Shaikh Allan MD [address] [place] [address] PCP - General Internal Medicine 09/24/23 Battalion Chief Relationship Specialty Start Date End Date Shaikh Allan MD PCP - General 01/26/23 Team Status: Inactive Member Role Status Dates Lin Dalton MD Attending Provider Active Start : January 23, 2024 End: January 23, 2024 Battalion Chief Relationship Specialty Start Date End Date Lee Dunn MD [address] [place] [address] Physician Hematology/Oncology 04/08/24 Sergei Carpenter, ALAVRO [address] [place] [address] Specialty Director Of Social Services Hematology/Oncology 04/08/24 Masha Knight, CANDY.KAIAWHINA KURA KAUPAPA MAORI [address] [place] [address] Nurse Practitioner Hematology/Oncology 04/08/24 Battalion Chief Relationship Specialty Start Date End Date Lee Dunn MD [address] [place] [address] Physician Hematology/Oncology 04/08/24 Sergei Carpenter, ALVARO [address] [facility] [place] [address] Specialty Director Of Social Services Hematology/Oncology 04/08/24 Masha Knight, TAX REVENUE OFFICER.KAIAWHINA KURA KAUPAPA MAORI [address] [facility] [place] [address] Nurse Practitioner Hematology/Oncology 04/08/24 Battalion Chief Relationship Specialty Start Date End Date Lee Dunn MD [address] [address] Physician Hematology/Oncology 04/08/24 Sergei Carpenter, ALVARO [address] [address] Specialty Director Of Social Services Hematology/Oncology 04/08/24 Masha Knight, TAX REVENUE OFFICER.KAIAWHINA KURA KAUPAPA MAORI [address] [facility] [place] [address] Nurse Practitioner Hematology/Oncology 04/08/24 Battalion Chief Relationship Specialty Start Date End Date Lee Dunn MD [address] [address] Physician Hematology/Oncology 04/08/24 Sergei Carpenter, ALVARO [address] [address] Specialty Director Of Social Services Hematology/Oncology 04/08/24 Masha Knight, TAX REVENUE OFFICER.KAIAWHINA KURA KAUPAPA MAORI [address] [address] Nurse Practitioner Hematology/Oncology 04/08/[address] [address] Registered Dietitian Nutrition 04/17/24 Krystal Paige LSW Stagecraft Teacher 04/18/24 Battalion Chief Relationship Specialty Start Date End Date Lee Dunn MD [address] [facility] [place] [address] Physician Hematology/Oncology 04/08/24 Sergei Carpenter RN [address] [place] [address] Specialty Director Of Social Services Hematology/Oncology 04/08/24 Masha Knight, TAX REVENUE OFFICER.KAIAWHINA KURA KAUPAPA MAORI [address] [facility] [place] [address] Nurse Practitioner Hematology/Oncology 04/08/[address] [facility] [place] [address] Registered Dietitian Nutrition 04/17/24 Krystal Paige LSW Stagecraft Teacher 04/18/24 Battalion Chief Relationship Specialty Start Date End Date Lee Dunn MD [address] [facility] [place] [place] [address] Physician Hematology/Oncology 04/08/24 Sergei Carpenter RN [address] [facility] [place] [address] Specialty Director Of Social Services Hematology/Oncology 04/08/24 Masha Knight, TAX REVENUE OFFICER.KAIAWHINA KURA KAUPAPA MAORI [address] [place] [address] Nurse Practitioner Hematology/Oncology 04/08/[address] [facility] [place] [address] Registered Dietitian Nutrition 04/17/24 Krystal Paige LSW Stagecraft Teacher 04/18/24 Battalion Chief Relationship Specialty Start Date End Date Lee Dunn MD [address] [place] [address] Physician Hematology/Oncology 04/08/24 Sergei Carpenter RN [address] [facility] [place] [address] Specialty Director Of Social Services Hematology/Oncology 04/08/24 Masha Knight, TAX REVENUE OFFICER.KAIAWHINA KURA KAUPAPA MAORI [address] [address] Nurse Practitioner Hematology/Oncology 04/08/[address] [address] Registered Dietitian Nutrition 04/17/24 Krystal Paige, COLLECTION MANAGER Stagecraft Teacher 04/18/24 Battalion Chief Relationship Specialty Start Date End Date Lee Dunn MD [address] [address] Physician Hematology/Oncology 04/08/24 Sergei Carpenter RN [address] [address] Specialty Director Of Social Services Hematology/Oncology 04/08/24 Masha Knight, TAX REVENUE OFFICER.KAIAWHINA KURA KAUPAPA MAORI [address] [address] Nurse Practitioner Hematology/Oncology 04/08/[address] [address] Registered Dietitian Nutrition 04/17/24 Krystal Paige, COLLECTION MANAGER Stagecraft Teacher 04/18/24 Battalion Chief Relationship Specialty Start Date End Date Lee Dunn MD [address] [address] Physician Hematology/Oncology 04/08/24 Sergei Carpenter RN [address] [address] Specialty Director Of Social Services Hematology/Oncology 04/08/24 Masha Knight, TAX REVENUE OFFICER.KAIAWHINA KURA KAUPAPA MAORI [address] [address] Nurse Practitioner Hematology/Oncology 04/08/[address] [address] Registered Dietitian Nutrition 04/17/24 Krystal Paige, COLLECTION MANAGER Stagecraft Teacher 04/18/24 Battalion Chief Relationship Specialty Start Date End Date Lee Dunn MD [address] [address] Physician Hematology/Oncology 04/08/24 Sergei Carpenter, ALVARO [address] [address] Specialty Director Of Social Services Hematology/Oncology 04/08/24 Masha Knight, TAX REVENUE OFFICER.KAIAWHINA KURA KAUPAPA MAORI [address] [address] Nurse Practitioner Hematology/Oncology 04/08/[address] [address] Registered Dietitian Nutrition 04/17/24 Krystal Paige, SPEEDY Stagecraft Teacher 04/18/24 Battalion Chief Relationship Specialty Start Date End Date Lee Dunn MD [address] [place] [address] Physician Hematology/Oncology 04/08/24 Sergei Carpenter, ALVARO [address] [address] Specialty Director Of Social Services Hematology/Oncology 04/08/24 Masha Knight, TAX REVENUE OFFICER.KAIAWHINA KURA KAUPAPA MAORI [address] [place] [address] Nurse Practitioner Hematology/Oncology 04/08/[address] [place] [address] Registered Dietitian Nutrition 04/17/24 Krystal Paige, COLLECTION MANAGER Stagecraft Teacher 04/18/24 Battalion Chief Relationship Specialty Start Date End Date Lee Dunn MD [address] [place] [address] Physician Hematology/Oncology 04/08/24 Sergei Carpenter, ALVARO [address] [place] [address] Specialty Director Of Social Services Hematology/Oncology 04/08/24 Masha Knight, TAX REVENUE OFFICER.KAIAWHINA KURA KAUPAPA MAORI [address] [place] [address] Nurse Practitioner Hematology/Oncology 04/08/[address] [place] [address] Registered Dietitian Nutrition 04/17/24 Krystal Paige LSW Stagecraft Teacher 04/18/24 Battalion Chief Relationship Specialty Start Date End Date Lee Dunn MD [address] [place] [address] Physician Hematology/Oncology 04/08/24 Sergei Carpenter, ALVARO [address] [place] [address] Specialty Director Of Social Services Hematology/Oncology 04/08/24 Masha Knight, TAX REVENUE OFFICER.KAIAWHINA KURA KAUPAPA MAORI [address] [facility] [place] [address] Nurse Practitioner Hematology/Oncology 04/08/[address] [address] Registered Dietitian Nutrition 04/17/24 Krystal Paige, COLLECTION MANAGER Stagecraft Teacher 04/18/24 Battalion Chief Relationship Specialty Start Date End Date Lee Dunn MD [address] [address] Physician Hematology/Oncology 04/08/24 Sergei Carpenter, ALVARO [address] [address] Specialty Director Of Social Services Hematology/Oncology 04/08/24 Masha Knight, TAX REVENUE OFFICER.KAIAWHINA KURA KAUPAPA MAORI [address] [place] [address] [place] [address] Nurse Practitioner Hematology/Oncology 04/08/[address] [place] [address] [place] [address] Registered Dietitian Nutrition 04/17/24 Krystal Paige, COLLECTION MANAGER Stagecraft Teacher 04/18/24 Battalion Chief Relationship Specialty Start Date End Date Lee Dunn MD [address] [address] Physician Hematology/Oncology 04/08/24 Sergei Carpenter, ALVARO [address] [address] Specialty Director Of Social Services Hematology/Oncology 04/08/24 Masha Knight, TAX REVENUE OFFICER.KAIAWHINA KURA KAUPAPA MAORI [address] [address] Nurse Practitioner Hematology/Oncology 04/08/[address] [address] Registered Dietitian Nutrition 04/17/24 Krystal Paige, COLLECTION MANAGER Stagecraft Teacher 04/18/24 Battalion Chief Relationship Specialty Start Date End Date Lee Dunn MD [address] [address] Physician Hematology/Oncology 04/08/24 Sergei Carpenter, ALVARO [address] [address] Specialty Director Of Social Services Hematology/Oncology 04/08/24 Masha Knight, TAX REVENUE OFFICER.KAIAWHINA KURA KAUPAPA MAORI [address] [address] Nurse Practitioner Hematology/Oncology 04/08/[address] [address] Registered Dietitian Nutrition 04/17/24 Krystal Paige, COLLECTION MANAGER Stagecraft Teacher 04/18/24 Battalion Chief Relationship Specialty Start Date End Date Lee Dunn MD [address] [address] Physician Hematology/Oncology 04/08/24 Sergei Carpenter, ALVARO [address] [address] Specialty Director Of Social Services Hematology/Oncology 04/08/24 Masha Knight, TAX REVENUE OFFICER.KAIAWHINA KURA KAUPAPA MAORI [address] [address] Nurse Practitioner Hematology/Oncology 04/08/[address] [address] Registered Dietitian Nutrition 04/17/24 Krystal Paige LSW Stagecraft Teacher 04/18/24 Battalion Chief Relationship Specialty Start Date End Date Emerson Pinto MD [address] [place] [phone] PCP - General Family Medicine 03/17/24 Rd Ford NP [address] [place] [phone] Nurse Practitioner Family Medicine 03/17/24 Battalion Chief Relationship Specialty Start Date End Date Emerson Pinto MD [address] [place] [phone] PCP - General Family Medicine 03/17/24 Rd Ford NP [address] [place] [phone] Nurse Practitioner Family Medicine 03/17/24 Battalion Chief Relationship Specialty Start Date End Date Lee Dunn MD [address] [address] Physician Hematology/Oncology 04/08/24 Sergei Carpenter, ALVARO [address] [address] Specialty Director Of Social Services Hematology/Oncology 04/08/24 Masha Knight APRN.KAIAWHINA KURA KAUPAPA MAORI [address] [address] Nurse Practitioner Hematology/Oncology 04/08/[address] [place] [address] [place], [place] [id number] Registered Dietitian Nutrition 04/17/24 Krystal Paige LSW Stagecraft Teacher 04/18/24 Battalion Chief Relationship Specialty Start Date End Date Emerson Pinto MD [address] [place] [phone] PCP - General Family Medicine 03/17/24 Rd Ford NP [address] [place] [phone] Nurse Practitioner Family Medicine 03/17/24 Battalion Chief Relationship Specialty Start Date End Date Emerson Pinto MD [address] [place] [phone] PCP - General Family Medicine 03/17/24 Rd Ford NP [address] [place] [address] Nurse Practitioner Family Medicine 03/17/24 Battalion Chief Relationship Specialty Start Date End Date Emerson Pinto MD [address] [place] [place] [phone] PCP - General Family Medicine 03/17/24 Rd Ford NP [address] [place] [phone] Nurse Practitioner Family Medicine 03/17/24 Reason for [...] sites of bladder (HCC) Lee Dunn MD [address] [place] [address] [place] [address] Rob Treat Xenia [address] [place] [address] Referral ID Status Reason Start Date Expiration Date V isits Requested Visits Authorized [id number] Authorized 04/07/2024 07/06/2024 99 99 Reason Comments Care Coordination C1D1 Post Treatment Call Reason Comments Lab Orders Reason Comments Nutrition Telephone No answer Reason Comments Bladder Cancer Reason Comments Treatment Planning Referral ID Status Reason Start Date Expiration Date V isits Requested Visits Authorized [id number] Authorized 04/25/2024 07/24/2024 99 99 Reason Comments Bladder Cancer OTV Reason Comments Orders Reason Comments COPD Reason Comments Radiology CT [facility] Diagnoses / [facility] Diagnoses Malignant neoplasm of urinary bladder, unspecified site (HCC) Procedures CT CHEST W IVCON DIAGNOSTIC COMPUTED TOMOGRAPHY THORAX W/CONTRAST Masha Knight, CANDY.KAIAWHINA KURA KAUPAPA MAORI [address] [place] [address] [place] [address] [place] [address] Referral ID Status Reason Start Date Expiration Date V isits Requested Visits Authorized [id number] Closed Auto-Generate d Referral 06/20/2024 07/20/2025 1 [...] or prosecute any alcohol or drug abuse patient.[facility] Hospital[facility] the event this information is protected by the Federal Confidentiality of Alcohol and Drug Abuse Patient Records regulations: The Federal rules restrict any use of the information to criminally investigate or prosecute any alcohol or drug abuse patient.[facility] HospitalIn the event this information is protected by the Federal Confidentiality of Alcohol and Drug Abuse Patient Records regulations: The Federal rules restrict any use of the information to criminally investigate or prosecute any alcohol or drug abuse patient.[facility] HospitalIn the event this information is protected by the Federal Confidentiality of Alcohol and Drug Abuse Patient Records regulations: The Federal rules restrict any use of the information to criminally investigate or prosecute any alcohol or drug abuse patient.[facility] HospitalIn the event this information is protected by the Federal Confidentiality of Alcohol and Drug Abuse Patient Records regulations: The Federal rules restrict any use of the information to criminally investigate or prosecute any alcohol or drug abuse patient.[facility] HospitalIn the event this information is protected by the Federal Confidentiality of Alcohol and Drug Abuse Patient Records regulations: The Federal rules restrict any use of the information to criminally investigate or prosecute any alcohol or drug abuse patient.[facility] HospitalIn the event this information is protected by the Federal Confidentiality of Alcohol and Drug Abuse Patient Records regulations: The Federal rules restrict any use of the information to criminally investigate or prosecute any alcohol or drug abuse patient.[facility] HospitalIn the event this information is protected by the Federal Confidentiality of Alcohol and Drug Abuse Patient Records regulations: The Federal rules restrict any use of the information to criminally investigate or prosecute any alcohol or drug abuse patient.[facility] HospitalIn the event this information is protected by the Federal Confidentiality of Alcohol and Drug Abuse Patient Records regulations: The Federal rules restrict any use of the information to criminally investigate or prosecute any alcohol or drug abuse patient.[facility] HospitalIn the event this information is protected by the Federal Confidentiality of Alcohol and Drug Abuse Patient Records regulations: The Federal rules restrict any use of the information to criminally investigate or prosecute any alcohol or drug abuse patient.[facility] HospitalIn the event this information is protected by the Federal Confidentiality of Alcohol and Drug Abuse Patient Records regulations: The Federal rules restrict any use of the information to criminally investigate or prosecute any alcohol or drug abuse patient.[facility] HospitalIn the event this information is protected by the Federal Confidentiality of Alcohol and Drug Abuse Patient Records regulations: The Federal rules restrict any use of the information to criminally investigate or prosecute any alcohol or drug abuse patient.[facility] HospitalIn the event this information is protected by the Federal Confidentiality of Alcohol and Drug Abuse Patient Records regulations: The Federal rules restrict any use of the information to criminally investigate or prosecute any alcohol or drug abuse patient.[facility] HospitalIn the event this information is protected by the Federal Confidentiality of Alcohol and Drug Abuse Patient Records regulations: The Federal rules restrict any use of the information to criminally investigate or prosecute any alcohol or drug abuse patient.[facility] HospitalIn the event this information is protected by the Federal Confidentiality of Alcohol and Drug Abuse Patient Records regulations: The Federal rules restrict any use of the information to criminally investigate or prosecute any alcohol or drug abuse patient.[facility] HospitalIn the event this information is protected by the Federal Confidentiality of Alcohol and Drug Abuse Patient Records regulations: The Federal rules restrict any use of the information to criminally investigate or prosecute any alcohol or drug abuse patient.[facility] HospitalIn the event this information is protected by the Federal Confidentiality of Alcohol and Drug Abuse Patient Records regulations: The Federal rules restrict any use of the information to criminally investigate or prosecute any alcohol or drug abuse patient.[facility] HospitalIn the event this information is protected by the Federal Confidentiality of Alcohol and Drug Abuse Patient Records regulations: The Federal rules restrict any use of the information to criminally investigate or prosecute any alcohol or drug abuse patient.[facility] HospitalIn the event this information is protected by the Federal Confidentiality of Alcohol and Drug Abuse Patient Records regulations: The Federal rules restrict any use of the information to criminally investigate or prosecute any alcohol or drug abuse patient.[facility] HospitalIn the event this information is protected by the Federal Confidentiality of Alcohol and Drug Abuse Patient Records regulations: The Federal rules restrict any use of the information to criminally investigate or prosecute any alcohol or drug abuse patient.[facility] HospitalIn the event this information is protected by the Federal Confidentiality of Alcohol and Drug Abuse Patient Records regulations: The Federal rules restrict any use of the information to criminally investigate or prosecute any alcohol or drug abuse patient.[facility] HospitalIn the event this information is protected by the Federal Confidentiality of Alcohol and Drug Abuse Patient Records regulations: The Federal rules restrict any use of the information to criminally investigate or prosecute any alcohol or drug abuse patient.[facility] HospitalIn the event this information is protected by the Federal Confidentiality of Alcohol and Drug Abuse Patient Records regulations: The Federal rules restrict any use of the information to criminally investigate or prosecute any alcohol or drug abuse patient.[facility] HospitalIn the event this information is protected by the Federal Confidentiality of Alcohol and Drug Abuse Patient Records regulations: The Federal rules restrict any use of the information to criminally investigate or prosecute any alcohol or drug abuse patient.[facility] HospitalIn the event this information is protected by the Federal Confidentiality of Alcohol and Drug Abuse Patient Records regulations: The Federal rules restrict any use of the information to criminally investigate or prosecute any alcohol or drug abuse patient.[facility] HospitalIn the event this information is protected by the Federal Confidentiality of Alcohol and Drug Abuse Patient Records regulations: The Federal rules restrict any use of the information to criminally investigate or prosecute any alcohol or drug abuse patient.[facility] HospitalIn the event this information is protected by the Federal Confidentiality of Alcohol and Drug Abuse Patient Records regulations: The Federal rules restrict any use of the information to criminally investigate or prosecute any alcohol or drug abuse patient.[facility] HospitalIn the event this information is protected by the Federal Confidentiality of Alcohol and Drug Abuse Patient Records regulations: The Federal rules restrict any use of the information to criminally investigate or prosecute any alcohol or drug abuse patient.[facility] HospitalIn the event this information is protected by the Federal Confidentiality of Alcohol and Drug Abuse Patient Records regulations: The Federal rules restrict any use of the information to criminally investigate or prosecute any alcohol or drug abuse patient.[facility] HospitalIn the event this information is protected by the Federal Confidentiality of Alcohol and Drug Abuse Patient Records regulations: The Federal rules restrict any use of the information to criminally investigate or prosecute any alcohol or drug abuse patient.[facility] HospitalIn the event this information is protected by the Federal Confidentiality of Alcohol and Drug Abuse Patient Records regulations: The Federal rules restrict any use of the information to criminally investigate or prosecute any alcohol or drug abuse patient.[facility] HospitalIn the event this information is protected by the Federal Confidentiality of Alcohol and Drug Abuse Patient Records regulations: The Federal rules restrict any use of the information to criminally investigate or prosecute any alcohol or drug abuse patient.[facility] HospitalIn the event this information is protected by the Federal Confidentiality of Alcohol and Drug Abuse Patient Records regulations: The Federal rules restrict any use of the information to criminally investigate or prosecute any alcohol or drug abuse patient.[facility] HospitalIn the event this information is protected by the Federal Confidentiality of Alcohol and Drug Abuse Patient Records regulations: The Federal rules restrict any use of the information to criminally investigate or prosecute any alcohol or drug abuse patient.[facility] HospitalIn the event this information is protected by the Federal Confidentiality of Alcohol and Drug Abuse Patient Records regulations: The Federal rules restrict any use of the information to criminally investigate or prosecute any alcohol or drug abuse patient.[facility] FOR RECORDS PERTAINING TO PATIENTS WHO [...] BE BASED ON THE PRIMARY CLINICAL RECORDS. [facility]. provides no warranty or guarantee of the accuracy or completeness of information in this document.
[2024-07-17 06:41] LABS: Basophils Percent Auto 0.2 % (0.2-2.0); Hematocrit 31.2 % (36.0-48.0); Hemoglobin 10.2 g/dL (12.0-16.0); Immature Granulocytes Abs Auto 0.06 10^3/uL (0.00-0.03); Immature Granulocytes Pct Auto 1.1 % (0.0-0.5); Lymphocytes Absolute Auto 0.2 10^3/uL (1.2-3.8); Mean Corpuscular HGB Conc 32.7 g/dL (29.9-35.2); Mean Corpuscular Hemoglobin 31.1 pg (26.7-34.0); Mean Corpuscular Volume 95.1 fL (81.0-99.0); Mean Platelet Volume 9.3 fL (9.5-13.5); Monocytes Absolute Auto 0.4 10^3/uL (0.3-0.8); Monocytes Percent Auto 7.7 % (1.7-12.0); Neutrophils Absolute Auto 4.7 10^3/uL (1.4-6.5); Platelet Count 320 10^3/uL (150-450); Red Blood Count 3.28 10^6/uL (4.20-5.40); White Blood Count 5.5 10^3/uL (4.0-11.0)
[2024-07-17 07:03] LABS: Alanine Aminotransferase 26 U/L (14-59); Albumin Globulin Ratio 0.9; Albumin Level 2.6 g/dL (3.4-5.0); Alkaline Phosphatase 67 U/L (46-116); Anion Gap 13.3; Aspartate Amino Transferase 17 U/L (15-37); BUN Creatinine Ratio 18.5; Bilirubin Total 0.3 mg/dL (0.2-1.0); Calcium 8.5 mg/dL (8.5-10.1); Carbon Dioxide 26.1 mmol/L (21.0-32.0); Chloride 102 mmol/L (98-107); Estimated GFR (African America >60 (>=60 mL/min/1.73m^2); Estimated GFR (Non-African Ame >60 (>=60 mL/min/1.73m^2); Globulin 2.9 g/dL; Glucose 117 mg/dL (74-106); Magnesium 1.6 mg/dL (1.8-2.4); Potassium 4.4 mmol/L (3.5-5.1); Sodium 137 mmol/L (136-145); Total Protein 5.5 g/dL (6.4-8.2)
--- NOTE | 2024-07-17 07:42 | P.PLCN_ITS ---
History of Present Illness History of Present Illness Consult date: 07/17/24 Requesting physician: Luda Rubio Reason for consult: COPD Chief complaint: COPD TACHRYCARDIA MILD RESP> DISTRESS Narrative: 69yo female presents to [facility] ER with respiratory distress. I follow her outpatient for COPD, with last visit 04/16/2024. She has severe COPD (FEV1 40%/0.75L) on quadruple inhaled nebulizer therapy - Yupelri, Brovana, Pulmicort, Ohtuvayre. She was doing fair up until she had a round of chemotherapy for her bladder mass approximately 2 weeks ago. Since then, she has noticed a deterioration in her breathing, with fatigue, malaise, and other constitutional symptoms. Despite using her nebs, she could not catch her breath well. Upon arrival to the ER: RR 26, HR 154, WBC was 16.6k, Lactate 2.6, and chest CTA negative for PE but noted bilateral lower lobe patchy infiltrates with mucus plugging. She was admitted to the floor. SpO2 dropped to 84% on RA, which she was then placed on O2 2L/min (she is not on home O2). This AM, she states she is feeling a little better but remains weak. 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 - Ctsdn-4-vzfonktbiuu deficiency (ICD-10) COVID-19 ?U07.1 - COVID-19 (ICD-10) Bladder mass ?N32.89 - Other specified disorders of bladder (ICD-10) Anxiety and depression ?F41.9 - Anxiety disorder, unspecified (ICD-10) ?F32.A - Depression, unspecified (ICD-10) Restless legs ?G25.81 - Restless legs syndrome (ICD-10) Osteoporosis ?M81.0 - Age-related osteoporosis without current pathological fracture (ICD- 10) Hyperlipidemia ?E78.5 - Hyperlipidemia, unspecified (ICD-10) HTN (hypertension) ?I10 - Essential (primary) hypertension (ICD-10) COPD (chronic obstructive pulmonary disease) ?J44.9 - Chronic obstructive pulmonary disease, unspecified (ICD-10) 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 - Disease of appendix, unspecified (ICD-10) Normal colonoscopy Hernia of abdominal wall ?K43.9 - Ventral hernia without obstruction or gangrene (ICD-10) Cataract ?H26.9 - Unspecified cataract (ICD-10) Surgical History Hx of appendectomy ?Z90.49 - Acquired absence of other specified parts of digestive tract (ICD- 10) H/O hernia repair ?Z98.890 - Other specified postprocedural states (ICD-10) ?Z87.19 - Personal history of other diseases of the digestive system (ICD-10) History of partial hysterectomy ?Z90.711 - Acquired absence of uterus with remaining cervical stump (ICD-10) Family History (Updated 07/16/24 @ 20:24 by Daphne Tang RN) Other DVT (deep venous thrombosis) Family history of CHF (congestive heart failure) Family history of COPD (chronic obstructive pulmonary disease) Family history of cancer Family history of stroke Social History (Updated 07/16/24 @ 20:25 by Daphne Tang RN) Within the past year, how often did you have a drink containing alcohol: never Score interpretation: A score less than 3 is consistent with normal alcohol consumption. Smoking status: Current some day smoker Second hand tobacco smoke exposure: Yes Non-prescribed substance use: denies use Previous occupational history: retired Highest level of school completed/degree received: 8th grade Are you now , , , , never or living with a partner: Little interest or pleasure in doing things: not at all Feeling down, depressed, or hopeless: not at all Do you think of yourself as: straight/heterosexual Gender Identity: female Meds Home Medications and Allergies Home Medications ?Medication ?Instructions ?Recorded ?Confirmed ?Type amlodipine 5 mg tablet 5 mg PO QDAY 08/14/23 07/16/24 History arformoterol 15 mcg/2 mL solution 15 mcg inhalation Q12H 08/14/23 07/16/24 History for nebulization atorvastatin 40 mg tablet 40 mg PO BEDTIME 08/14/23 07/16/24 History budesonide 0.5 mg/2 mL suspension 0.5 mg inhalation BID 08/14/23 07/16/24 History for nebulization losartan 100 mg tablet 100 mg PO DAILY 08/14/23 07/16/24 History meloxicam 7.5 mg tablet 7.5 mg PO DAILY 08/14/23 07/16/24 History multivitamin 1 tab PO DAILY 08/14/23 07/16/24 History pantoprazole 40 mg tablet,delayed 40 mg PO DAILY 08/14/23 07/16/24 History release revefenacin 175 mcg/3 mL solution 175 mcg inhalation DAILY 08/14/23 07/16/24 History for nebulization (Yupelri) metoprolol succinate 100 mg 100 mg PO DAILY #30 tabs 08/16/23 07/16/24 Rx tablet,extended release 24 hr escitalopram oxalate 10 mg tablet 20 mg PO DAILY 01/21/24 07/16/24 History gabapentin 300 mg capsule 300 mg PO DAILY 01/21/24 07/16/24 History guaifenesin 600 mg tablet, 1,200 mg PO Q12H 01/21/24 07/16/24 History extended release 12 hr (Mucus Relief ER) psyllium husk 0.4 gram capsule 0.4 g PO DAILY 01/21/24 07/16/24 History (Daily Fiber) vitamin E 268 mg (400 unit) capsule 180 mg PO DAILY 01/21/24 07/16/24 History zinc 50 mg capsule 50 mg PO DAILY 01/21/24 07/16/24 History oxybutynin chloride 5 mg tablet 5 mg PO TID PRN bladder spasms #60 01/23/24 07/16/24 Rx tabs ondansetron 4 mg disintegrating 4 mg PO Q6H PRN nausea and 01/30/24 07/16/24 Rx tablet vomiting #12 tabs alendronate 70 mg tablet 70 mg PO .Weekly 07/16/24 07/16/24 History escitalopram oxalate 20 mg tablet mg 12/04/24 History prednisone 5 mg tablet mg 07/16/24 History sodium chloride 1,000 mg soluble mg 07/16/24 History tablet trazodone 50 mg tablet 50 mg PO .HS 07/16/24 07/16/24 History Allergies Allergy/AdvReac Type Severity Reaction Status Date / Time codeine AdvReac Severe Nausea Verified 01/25/24 22:07 Exam Constitutional Vital Signs, click to edit/add: Last Vital Signs Temp 98.2 F 07/17/24 04:00 Pulse 91 H 07/17/24 05:58 Resp 16 07/17/24 04:00 BP 154/88 H 07/17/24 04:00 Pulse Ox 94 L 07/17/24 04:17 O2 Del Method Nasal Cannula 07/17/24 04:17 O2 Flow Rate 2 07/17/24 04:17 Documenting provider has reviewed patient's vital signs: yes Other: Appears more weak, aged compared to when I last saw her in April. Underweight now (107#/BMI 21.6 on 04/16/2024). HENMT Other: Wearing nasal cannula Chest Other: Increased A-P diameter Respiratory Other: Diffuse rhonchi, especially in lower lobes (not present during last exam by me on 04/16/2024). Expiratory wheezes. Mild conversational dyspnea. Cardio Rate: regular rate Rhythm: regular rhythm GI Inspection: normal to inspection Extremity Other: Loss of muscle mass Neuro Motor exam: no tremor noted and no fasciculations Psych Appearance: grossly normal Attitude: calm Results Laboratory Findings ABG, PT/INR, D-dimer: PT/INR, D-dimer PT 10.8 sec (9.0-11.6) 07/16/24 15:36 INR 1.02 07/16/24 15:36 Abnormal lab findings: Abnormal Labs 07/16/24 07/17/24 15:36 06:07 WBC 16.6 H RBC 3.91 L 3.28 L Hgb 10.2 L Hct 31.2 L RDW 20.4 H 20.0 H MPV 9.2 L 9.3 L Neut % (Auto) 87.0 H Lymph % (Auto) 4.0 L Eos % (Auto) 0.0 L Lymph # (Auto) 0.2 L Abs Immat Gran (auto) 0.06 H Seg Neuts % (Manual) 94.0 H Lymphocytes % (Manual) 2.0 L Eosinophils % (Manual) 0.0 L Basophils % (Manual) 0.0 L Imm/Tot Granulo (auto) 1.1 H Neutrophils # (Manual) 15.60 H Lymphocytes # (Manual) 0.33 L Sodium 134 L Chloride 97 L Glucose 124 H 117 H Lactate 2.6 H* Magnesium 1.6 L Total Protein 5.5 L Albumin 3.2 L 2.6 L Assessment and Plan Assessment and Plan (1) Pneumonia: Assessment and Plan: With overall presentation, this appears to be pneumonia until proven otherwise. She is weakened from underlying cancer and chemo, so possible any infectious agent could be the cause. Already from admission from the ER, she appears to be responding favorably. Would continue current antibiotics and monitor her closely. Qualifiers: Laterality: bilateral Lung location: lower lobe of lung Pneumonia type: due to unspecified organism Qualified Code(s): J18.9 - Pneumonia, unspecified organism (2) Severe sepsis: Assessment and Plan: Secondary to pneumonia. See HPI for qualifying criteria. Treatment is supportive care. (3) COPD exacerbation: Assessment and Plan: Patient has severe COPD, on quadruple inhaled nebulized therapy at home: Yupelri, Brovana, Pulmicort, and Ohtuvayre. Can change Yupelri + Brovana over to DuoNeb Q4H while awake, continue Pulmicort, and hold Ohtuvayre during hospitalization. Also DuoNeb Q2H PRN for dyspnea. Continue SoluMedrol. (4) Acute hypoxic respiratory failure: Assessment and Plan: Secondary to all the above. Not on supplemental O2 @ home. May require O2 @ discharge. Will need assessed prior to discharge. (5) Mucus plugging of bronchi: Assessment and Plan: New for patient. Start pulmonary toilet with hypertonic saline nebs and PEP. She is weak, so unclear how well she would tolerate vest. May consider adding IPV. (6) Bladder cancer: Assessment and Plan: Undergoing chemo, last round ~2 weeks ago, next round planned for 07/30/2024. She is considering not following through with debulking procedure. She states she is weak and tired and does not want to go through with it. F/U with urology. Qualifiers: Bladder location: unspecified site Qualified Code(s): C67.9 - Malignant neoplasm of bladder, unspecified (7) Cachexia: Assessment and Plan: Associated with bladder cancer and COPD. Healthy weight gain. (8) Underweight: Assessment and Plan: Patient has lost 16 pounds since April.
[2024-07-17] MEDS: ENOXAPARIN SODIUM 40 MG/0.4 ML SYRINGE SUBQ (10:02)
[2024-07-17] MEDS: GUAIFENESIN 600 MG TAB.ER.12H 1200 MG PO ×2 (10:02→21:21)
[2024-07-17] MEDS: METHYLPREDNISOLONE SOD SUCC PF 40 MG/ML VIAL IVP ×3 (10:03→21:21)
--- NOTE | 2024-07-17 10:32 | CM.NOTE ---
Rounds made with Dr. Allan. Dr. Allan reviews plan of care.
[2024-07-17] MEDS: CALCIUM POLYCARBOPHIL 625 MG TABLET PO (10:53)
[2024-07-17] MEDS: OMEPRAZOLE 40 MG CAPSULE.DR PO (10:53)
[2024-07-17] MEDS: VITAMIN E (DL,TOCOPHERYL ACET) 180 MG (400 IU) CAPSULE PO (10:53)
[2024-07-17] MEDS: METOPROLOL SUCCINATE 100 MG TAB.ER.24H PO (10:54)
[2024-07-17] MEDS: ZINC GLUCONATE 50 MG TABLET PO (10:54)
[2024-07-17] MEDS: LOSARTAN POTASSIUM 50 MG TABLET 100 MG PO (10:54)
[2024-07-17] MEDS: MULTIVITAMIN TABLET 1 TAB PO (10:54)
[2024-07-17] MEDS: ESCITALOPRAM 10 MG TABLET 20 MG PO (10:54)
[2024-07-17] MEDS: MELOXICAM 7.5 MG TABLET PO (10:54)
[2024-07-17] MEDS: AMLODIPINE BESYLATE 5 MG TABLET PO (10:54)
--- NOTE | 2024-07-17 11:11 | PM.HP ---
HPI H&P: HPI History of Present Illness Chief complaint: COPD TACHRYCARDIA MILD RESP> DISTRESS Narrative: 69-year-old female with history of COPD presented to ER with 2-week history of worsening shortness of breath, productive cough with purulent sputum and generalized weakness. Patient is currently getting treatment for bladder cancer and reports that her symptoms started after she received her chemotherapy 2 weeks ago. Patient was not hypoxic initially in ER but dropped her pulse oxygen to 84% and was put on 2 L oxygen via nasal cannula with improvement in her oxygen saturation. She was treated with IV Solu-Medrol, DuoNebs and IV Levaquin. Patient had a CTA chest that did not reveal pulmonary embolism but showed mucous plugging and bilateral pulmonary infiltrates. Patient is a still quite short of breath, dyspneic and has to stop during conversation. Patient was seen earlier today by pulmonology and started on pulmonary toilet for mucous plugging and agreed with current treatment plan otherwise. Opioid HPI Opioid Management Most Recent Pain and Opioid Data: Last Pain Scale 0 07/17/24 08:20 07/17/24 Last Pain Assessment 07/17/24 10:40 Last ORT Total Score 0 07/16/24 20:16 07/16/24 Last ORT Risk Category Low Risk 07/16/24 20:16 07/16/24 Review of Systems ROS Status of ROS 10 or more systems reviewed and unremarkable except as noted in history and below [facility] Medical History (Updated 07/17/24 @ 11:20 by Shaikh Jerrell MD) Bladder cancer ?C67.9 - Malignant neoplasm of bladder, unspecified (ICD-10) COPD (chronic obstructive pulmonary disease) ?J44.9 - Chronic obstructive pulmonary disease, unspecified (ICD-10) Hematuria ?R31.9 - Hematuria, unspecified (ICD-10) Jeimq-8-hcueqxjkjxd 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 - Gwers-4-xoqwpbixhrm deficiency (ICD-10) COVID-19 ?U07.1 - COVID-19 (ICD-10) Bladder mass ?N32.89 - Other specified disorders of bladder (ICD-10) Anxiety and depression ?F41.9 - Anxiety disorder, unspecified (ICD-10) ?F32.A - Depression, unspecified (ICD-10) Restless legs ?G25.81 - Restless legs syndrome (ICD-10) Osteoporosis ?M81.0 - Age-related osteoporosis without current pathological fracture (ICD-10) Hyperlipidemia ?E78.5 - Hyperlipidemia, unspecified (ICD-10) HTN (hypertension) ?I10 - Essential (primary) hypertension (ICD-10) COPD (chronic obstructive pulmonary disease) ?J44.9 - Chronic obstructive pulmonary disease, unspecified (ICD-10) 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 - Disease of appendix, unspecified (ICD-10) Normal colonoscopy Hernia of abdominal wall ?K43.9 - Ventral hernia without obstruction or gangrene (ICD-10) Cataract ?H26.9 - Unspecified cataract (ICD-10) Surgical History Hx of appendectomy ?Z90.49 - Acquired absence of other specified parts of digestive tract (ICD-10) H/O hernia repair ?Z98.890 - Other specified postprocedural states (ICD-10) ?Z87.19 - Personal history of other diseases of the digestive system (ICD-10) History of partial hysterectomy ?Z90.711 - Acquired absence of uterus with remaining cervical stump (ICD-10) Family History (Updated 07/16/24 @ 20:24 by Daphne Tang RN) Other DVT (deep venous thrombosis) Family history of CHF (congestive heart failure) Family history of COPD (chronic obstructive pulmonary disease) Family history of cancer Family history of stroke Social History (Updated 07/16/24 @ 20:25 by Daphne Tang RN) Within the past year, how often did you have a drink containing alcohol: never Score interpretation: A score less than 3 is consistent with normal alcohol consumption. Smoking status: Current some day smoker Second hand tobacco smoke exposure: Yes Non-prescribed substance use: denies use Previous occupational history: retired Highest level of school completed/degree received: 8th grade Are you now , , , , never or living with a partner: Little interest or pleasure in doing things: not at all Feeling down, depressed, or hopeless: not at all Do you think of yourself as: straight/heterosexual Gender Identity: female Meds Home Medications and Allergies Home Medications ?Medication ?Instructions ?Recorded ?Confirmed ?Type amlodipine 5 mg tablet 5 mg PO QDAY 08/14/23 07/16/24 History arformoterol 15 mcg/2 mL solution 15 mcg inhalation Q12H 08/14/23 07/16/24 History for nebulization atorvastatin 40 mg tablet 40 mg PO BEDTIME 08/14/23 07/16/24 History budesonide 0.5 mg/2 mL suspension 0.5 mg inhalation BID 08/14/23 07/16/24 History for nebulization losartan 100 mg tablet 100 mg PO DAILY 08/14/23 07/16/24 History meloxicam 7.5 mg tablet 7.5 mg PO DAILY 08/14/23 07/16/24 History multivitamin 1 tab PO DAILY 08/14/23 07/16/24 History pantoprazole 40 mg tablet,delayed 40 mg PO DAILY 08/14/23 07/16/24 History release revefenacin 175 mcg/3 mL solution 175 mcg inhalation DAILY 08/14/23 07/16/24 History for nebulization (Yupesidneyi) metoprolol succinate 100 mg 100 mg PO DAILY #30 tabs 08/16/23 07/16/24 Rx tablet,extended release 24 hr gabapentin 300 mg capsule 300 mg PO BID 01/21/24 07/17/24 History guaifenesin 600 mg tablet, 1,200 mg PO Q12H 01/21/24 07/16/24 History extended release 12 hr (Mucus Relief ER) psyllium husk 0.4 gram capsule 0.4 g PO DAILY 01/21/24 07/16/24 History (Daily Fiber) vitamin E 268 mg (400 unit) capsule 180 mg PO DAILY 01/21/24 07/16/24 History zinc 50 mg capsule 50 mg PO DAILY 01/21/24 07/16/24 History oxybutynin chloride 5 mg tablet 5 mg PO TID PRN bladder spasms #60 01/23/24 07/16/24 Rx tabs alendronate 70 mg tablet 70 mg PO .Weekly 07/16/24 07/16/24 History escitalopram oxalate 20 mg tablet 20 mg PO DAILY 07/16/24 07/17/24 History prednisone 5 mg tablet 5 mg PO DAILY 07/16/24 07/17/24 History Allergies Allergy/AdvReac Type Severity Reaction Status Date / Time codeine AdvReac Severe Nausea Verified 01/25/24 22:07 Exam Constitutional Vital Signs, click to edit/add: Last Vital Signs Temp 98.3 F 07/17/24 08:20 Pulse 115 H 07/17/24 10:00 Resp 20 07/17/24 08:20 BP 146/81 H 07/17/24 08:20 Pulse Ox 96 07/17/24 08:20 O2 Del Method Nasal Cannula 07/17/24 08:20 O2 Flow Rate 2 07/17/24 08:20 Documenting provider has reviewed patient's vital signs: yes Common normals: oriented x3 General appearance: cooperative and in distress respiratory Nutritional appearance: cachectic and underweight HENMT Common normals: normocephalic and head/scalp atraumatic Head and scalp: normocephalic and atraumatic Eye Common normals: conjunctivae normal and no scleral icterus Conjunctiva: conjunctiva(e) normal Respiratory Common normals: normal respiratory effort Effort & inspection: tachypneic and actively coughing Auscultation: rhonchi, wheezes, diminished lung sounds and bronchial breath sounds Other: Dyspneic at rest. Cardio Common normals: regular rate, S1 normal heart sound and S2 normal heart sound Rate: regular rate Heart sounds: S1 normal and S2 normal GI Common normals: Normal to inspection, nondistended, normoactive bowel sounds present, soft to palpation, non-tender and no hepatosplenomegaly Palpation: soft and no hepatosplenomegaly Extremity Common normals: no clubbing, cyanosis or edema Neuro Common normals: oriented x3, moves all extremities and no focal motor deficits Psych Common normals: mental status grossly normal, denies hallucinations, denies homicidal ideation and denies suicidal ideation Results Labs Labs: Short CBC 07/16/24 07/17/24 Range/Units 15:36 06:07 WBC 16.6 H 5.5 (4.0-11.0) 10^3/uL Hgb 12.2 10.2 L (12.0-16.0) g/dL Hct 37.3 31.2 L (36.0-48.0) % Plt Count 425 320 (150-450) 10^3/uL BMP 07/16/24 07/17/24 15:36 06:07 Sodium 134 L 137 Potassium 3.8 4.4 Chloride 97 L 102 Carbon Dioxide 25.3 26.1 BUN 16.0 12.0 Creatinine 0.82 0.65 Glucose 124 H 117 H Calcium 9.8 8.5 Liver Function 07/16/24 07/17/24 Range/Units 15:36 06:07 Total Bilirubin 0.7 0.3 (0.2-1.0) mg/dL AST 23 17 (15-37) U/L ALT 31 26 (14-59) U/L Alkaline Phosphatase 85 67 (46-116) U/L Albumin 3.2 L 2.6 L (3.4-5.0) g/dL Assessment and Plan Assessment and Plan (1) Sepsis: Assessment and Plan: Meets sepsis critieria (HR> 100, RR> 20, WBC> 13K) Still tachycardic but leukocytosis and RR improved. Due to PNA. On IV levaquin F.u blood, sputum cx. Qualifiers: Sepsis type: Pneumococcus Sepsis acute organ dysfunction status: without acute organ dysfunction Qualified Code(s): A40.3 - Sepsis due to Streptococcus pneumoniae (2) Pneumonia: Assessment and Plan: b/l PNA with sepsis and resp failure with hypoxia PSI risk class IV, at high risk of mortality. On IV levaquin. Needs close monitoring to ensure she is clinically responding. Qualifiers: Pneumonia type: due to unspecified organism Laterality: bilateral Lung location: lower lobe of lung Qualified Code(s): J18.9 - Pneumonia, unspecified organism (3) COPD exacerbation: Assessment and Plan: On duonebs, systemic steroids. due to PNA. (4) Acute hypoxic respiratory failure: Assessment and Plan: On 2 L O2 via NC. Does not use O2 at home. Wean off os as tolerated. (5) Mucus plugging of bronchi: Assessment and Plan: Started on Pulm toilet. (6) Bladder cancer: Assessment and Plan: Received chemo 2 weeks ago. Has scan planned next week to follow up on response to treatment. Qualifiers: Bladder location: unspecified site Qualified Code(s): C67.9 - Malignant neoplasm of bladder, unspecified (7) HTN (hypertension): Assessment and Plan: BP stable. c/w home medications Qualifiers: Hypertension type: primary hypertension Qualified Code(s): I10 - Essential (primary) hypertension (8) Hyperlipidemia: Assessment and Plan: c/w statin Qualifiers: Hyperlipidemia type: unspecified Qualified Code(s): E78.5 - Hyperlipidemia, unspecified (9) Severe protein-calorie malnutrition: Assessment and Plan: weight loss of about 15 kg within last 6 months, likely due to pulm cachexia and bladder cancer. Reports poor po intake, decreased appetite. Ensure/prostat added. dieitician consulted.
[2024-07-17] MEDS: IPRATROPIUM/ALBUTEROL SULFATE 3 ML AMPUL.NEB IH ×4 (11:16→23:38)
[2024-07-17] MEDS: BUDESONIDE 0.5 MG/2 ML AMPULE NEB IH ×2 (11:16→23:38)
[2024-07-17] MEDS: 0.9 % SODIUM CHLORIDE 1,000 ML 100 ML IV ×2 (12:33→21:20)
[2024-07-17] MEDS: GABAPENTIN 300 MG CAPSULE PO ×2 (12:33→21:21)
[2024-07-17] MEDS: ENSURE ORIGINAL 237 ML BOTTLE PO ×2 (12:34→21:21)
[2024-07-17] MEDS: PROSTAT 15 GM PROTEIN/100 CAL 30 ML LIQUID PACKET PO ×2 (12:34→21:21)
[2024-07-17] MEDS: SODIUM CHLORIDE 3% INHALATION 15 ML NEB 3 ML IH ×2 (14:43→23:38)
--- NOTE | 2024-07-17 14:52 | SWNOTE1 ---
Important Message from [employer] reviewed and discussed with patient. Pt. verbalized understanding and signed the form. Original given to patient and copy placed in patient?s chart.
--- NOTE | 2024-07-17 14:56 | SWNOTE1 ---
SW met with pt to discuss dc needs. Pt lives at home with her who was just at hospital and was dc yesterday. She voiced she was doing well at home, but then her got sick and she declined as well because her does assist with things at home. Pt has a walker at home and just bought a wheelchair. Pt di talk about her support from her kids and grand-kids as well. Pt does live in a trailer and they are working on getting a new furnace thru [facility]. She stated she will eventually need a new roof and washer and dryer. She stated she and her applied for Medicaid but they were denied as they made too much money. SW encouraged pt to continue to reach out to [facility] in regards to furnace. Pt does have heaters throughout the trailer at this time. Pt does have a social worker school from [facility] [employer] that does assist as well. SW did set pt's up with HH yesterday as well with a social worker school. SW asked if pt feels she needs HH as well, she stated it would not hurt. SW to look over therapy notes and see if it was recommended. Pt does not wear home oxygen. Pt stated it may make her feel better and she may need it at discharge. SW to follow as needed. SHRUTHI checked for therapy note, no evals at this time.
--- NOTE | 2024-07-17 16:23 | SWNOTE1 ---
Pt did not have therapy ordered, SW asked doctor if it could be ordered for her.
[2024-07-17] MEDS: ATORVASTATIN CALCIUM 40 MG TABLET PO (21:21)
[2024-07-18] VITALS (22 sets, daily range): BP systolic 128–164; BP diastolic 58–97; PULSE 87–114; TEMP 35.9–36.8; O2SAT 91–97
[2024-07-18] MEDS: METHYLPREDNISOLONE SOD SUCC PF 40 MG/ML VIAL IVP ×4 (03:30→22:06)
[2024-07-18] MEDS: IPRATROPIUM/ALBUTEROL SULFATE 3 ML AMPUL.NEB IH ×5 (04:03→22:56)
--- NOTE | 2024-07-18 04:12 | RESP.RT ---
titrated to room air
[2024-07-18 06:11] LABS: Basophils Percent Auto 0.2 % (0.2-2.0); Hematocrit 31.8 % (36.0-48.0); Hemoglobin 10.3 g/dL (12.0-16.0); Immature Granulocytes Abs Auto 0.07 10^3/uL (0.00-0.03); Immature Granulocytes Pct Auto 1.1 % (0.0-0.5); Lymphocytes Absolute Auto 0.2 10^3/uL (1.2-3.8); Lymphocytes Percent Auto 2.3 % (20.5-60.0); Mean Corpuscular HGB Conc 32.4 g/dL (29.9-35.2); Mean Corpuscular Volume 95.8 fL (81.0-99.0); Mean Platelet Volume 9.6 fL (9.5-13.5); Monocytes Absolute Auto 0.4 10^3/uL (0.3-0.8); Monocytes Percent Auto 5.3 % (1.7-12.0); Neutrophils Absolute Auto 6.1 10^3/uL (1.4-6.5); Neutrophils Percent Auto 91.1 % (43.0-75.0); Platelet Count 308 10^3/uL (150-450); Red Blood Count 3.32 10^6/uL (4.20-5.40); Red Cell Distribution Width 19.9 % (11.0-15.0); White Blood Count 6.6 10^3/uL (4.0-11.0)
[2024-07-18 06:27] LABS: Alanine Aminotransferase 26 U/L (14-59); Albumin Globulin Ratio 0.9; Albumin Level 2.8 g/dL (3.4-5.0); Alkaline Phosphatase 66 U/L (46-116); Anion Gap 9.9; Aspartate Amino Transferase 17 U/L (15-37); Bilirubin Total 0.3 mg/dL (0.2-1.0); Calcium 8.7 mg/dL (8.5-10.1); Carbon Dioxide 26.9 mmol/L (21.0-32.0); Chloride 103 mmol/L (98-107); Estimated GFR (African America >60 (>=60 mL/min/1.73m^2); Estimated GFR (Non-African Ame >60 (>=60 mL/min/1.73m^2); Globulin 3.1 g/dL; Glucose 150 mg/dL (74-106); Potassium 3.8 mmol/L (3.5-5.1); Sodium 136 mmol/L (136-145); Total Protein 5.9 g/dL (6.4-8.2)
[2024-07-18] MEDS: ENOXAPARIN SODIUM 40 MG/0.4 ML SYRINGE SUBQ (08:49)
[2024-07-18] MEDS: MULTIVITAMIN TABLET 1 TAB PO (08:50)
[2024-07-18] MEDS: OMEPRAZOLE 40 MG CAPSULE.DR PO (08:50)
[2024-07-18] MEDS: GABAPENTIN 300 MG CAPSULE PO ×2 (08:50→22:06)
[2024-07-18] MEDS: PROSTAT 15 GM PROTEIN/100 CAL 30 ML LIQUID PACKET PO ×2 (08:50→22:07)
[2024-07-18] MEDS: CALCIUM POLYCARBOPHIL 625 MG TABLET PO (08:50)
[2024-07-18] MEDS: VITAMIN E (DL,TOCOPHERYL ACET) 180 MG (400 IU) CAPSULE PO (08:50)
[2024-07-18] MEDS: METOPROLOL SUCCINATE 100 MG TAB.ER.24H PO (08:50)
[2024-07-18] MEDS: AMLODIPINE BESYLATE 5 MG TABLET PO (08:50)
[2024-07-18] MEDS: ESCITALOPRAM 10 MG TABLET 20 MG PO (08:50)
[2024-07-18] MEDS: ZINC GLUCONATE 50 MG TABLET PO (08:50)
[2024-07-18] MEDS: LOSARTAN POTASSIUM 50 MG TABLET 100 MG PO (08:50)
[2024-07-18] MEDS: MELOXICAM 7.5 MG TABLET PO (08:50)
[2024-07-18] MEDS: GUAIFENESIN 600 MG TAB.ER.12H 1200 MG PO ×2 (08:50→22:06)
[2024-07-18] MEDS: 0.9 % SODIUM CHLORIDE 1,000 ML 100 ML IV ×2 (08:51→19:44)
[2024-07-18] MEDS: SODIUM CHLORIDE 3% INHALATION 15 ML NEB 3 ML IH ×3 (08:58→22:56)
--- NOTE | 2024-07-18 09:52 | SWNOTE1 ---
SW checked OT note and HH was recommended. SW stopped in to speak with pt. Pt was off her oxygen and she stated she walked in the halls a little with therapy. SW asked her about HH? Pt voiced it would not hurt and she is open to this. Pt is alright with using the same HH company that her was set up with. SW to send referral. Referral sent to [address] Referral included face sheet, ED note, H&P, provider notes, case management report, and OT note. SHRUTHI will send PT eval once it is documented.
--- NOTE | 2024-07-18 10:10 | P.IMPN_ITS ---
Progress Note: A&P Assessment and Plan (1) Sepsis: Qualifiers: Sepsis type: Pneumococcus Sepsis acute organ dysfunction status: without acute organ dysfunction Qualified Code(s): A40.3 - Sepsis due to Streptococcus pneumoniae (2) Pneumonia: Qualifiers: Pneumonia type: due to unspecified organism Laterality: bilateral Lung location: lower lobe of lung Qualified Code(s): J18.9 - Pneumonia, unspecified organism (3) COPD exacerbation: (4) Acute hypoxic respiratory failure: (5) Mucus plugging of bronchi: (6) Bladder cancer: Qualifiers: Bladder location: unspecified site Qualified Code(s): C67.9 - Malignant neoplasm of bladder, unspecified (7) HTN (hypertension): Qualifiers: Hypertension type: primary hypertension Qualified Code(s): I10 - Essential (primary) hypertension (8) Hyperlipidemia: Qualifiers: Hyperlipidemia type: unspecified Qualified Code(s): E78.5 - Hyperlipidemia, unspecified (9) Severe protein-calorie malnutrition: Plan Patient still tachycardic/tachypneic with increased work of breathing. I saw her after she worked with PT. Otherwise, she feels subjectively better. She is off of O2. She is still feeling weak/tired and SOB at rest and on minimal exertion. Her lungs sounded better and she seems to be moving air better. C/w current co urse of treatment. Monitor closely for resp decline and hemodynamic instability. Needs continued inpatient treatment/monitoring. Internal Medicine - PN: Subj Subjective Interval history: Seen and examined. No overnight events. Feeling better but still SOB and was quite winded after working with PT. Exam Constitutional Vital Signs, click to edit/add: Last Vital Signs Temp 96.6 F L 07/18/24 07:38 Pulse 106 H 07/18/24 09:55 Resp 32 H 07/18/24 07:38 BP 149/64 H 07/18/24 07:38 Pulse Ox 95 07/18/24 09:01 O2 Del Method Room Air 07/18/24 09:01 O2 Flow Rate 1 07/18/24 04:03 Documenting provider has reviewed patient's vital signs: yes Common normals: oriented x3 General appearance: cooperative and in distress respiratory Nutritional appearance: cachectic and underweight Respiratory Common normals: normal respiratory effort Effort & inspection: tachypneic Auscultation: wheezes, diminished lung sounds and bronchial breath sounds Other: Dyspneic at rest. Conversational dyspnea noted. Cardio Common normals: regular rate, S1 normal heart sound and S2 normal heart sound Rate: regular rate Heart sounds: S1 normal and S2 normal Extremity Common normals: no clubbing, cyanosis or edema Neuro Common normals: oriented x3, moves all extremities and no focal motor deficits Psych Common normals: mental status grossly normal, denies hallucinations, denies homicidal ideation and denies suicidal ideation Internal Medicine - PN: Obj Da Labs Labs: Laboratory Results - last 24 hr 07/18/24 05:41 WBC 6.6 RBC 3.32 L Hgb 10.3 L Hct 31.8 L MCV 95.8 MCH 31.0 MCHC 32.4 RDW 19.9 H Plt Count 308 MPV 9.6 Neut % (Auto) 91.1 H Lymph % (Auto) 2.3 L [place] % (Auto) 5.3 Eos % (Auto) 0.0 L Baso % (Auto) 0.2 Neut # (Auto) 6.1 Lymph # (Auto) 0.2 L [place] # (Auto) 0.4 Eos # (Auto) 0.0 Baso # (Auto) 0.0 Abs Immat Gran (auto) 0.07 H Imm/Tot Granulo (auto) 1.1 H Sodium 136 Potassium 3.8 Chloride 103 Carbon Dioxide 26.9 Anion Gap 9.9 BUN 13.0 Creatinine 0.62 Est GFR ( Amer) >60 Est GFR (Non-Af Amer) >60 BUN/Creatinine Ratio 21.0 Glucose 150 H Calcium 8.7 Total Bilirubin 0.3 AST 17 ALT 26 Alkaline Phosphatase 66 Total Protein 5.9 L Albumin 2.8 L Globulin 3.1 Albumin/Globulin Ratio 0.9
--- NOTE | 2024-07-18 10:46 | CM.NOTE ---
Rounds made with Dr. Allan, no discharge today. Pt continues to c/o significant SOB with minimal activity.
--- NOTE | 2024-07-18 11:13 | SWNOTE1 ---
[facility] able [facility] accept. Pt is not discharging today. SW let [facility] know that no discharge today. SW sent over CRF and will leave packet on floor for weekend in case of discharge.
--- NOTE | 2024-07-18 13:21 | NUTR.NU ---
Meets the criteria for severe protein calorie malnutrition R/T bladder cancer and chemo; weight loss pror to admit; and low BMI.
[2024-07-18] MEDS: ENSURE ORIGINAL 237 ML BOTTLE PO (22:06)
[2024-07-18] MEDS: ATORVASTATIN CALCIUM 40 MG TABLET PO (22:06)
[2024-07-18] MEDS: TEMAZEPAM 15 MG CAPSULE PO (22:07)
[2024-07-18] MEDS: LEVOFLOXACIN IN DEXTROSE 5 % 750 MG/150 ML PREMIX 100 MG IV (22:07)
[2024-07-18] MEDS: BUDESONIDE 0.5 MG/2 ML AMPULE NEB IH (22:56)
[2024-07-19] VITALS (13 sets, daily range): BP systolic 143–147; BP diastolic 73–78; PULSE 83–116; TEMP 36.4–36.5; O2SAT 90–97
[2024-07-19] MEDS: 0.9 % SODIUM CHLORIDE 1,000 ML 100 ML IV (04:21)
[2024-07-19] MEDS: METHYLPREDNISOLONE SOD SUCC PF 40 MG/ML VIAL IVP ×2 (04:22→09:13)
[2024-07-19 06:37] LABS: Hematocrit 30.1 % (36.0-48.0); Hemoglobin 9.7 g/dL (12.0-16.0); Immature Granulocytes Abs Auto 0.11 10^3/uL (0.00-0.03); Immature Granulocytes Pct Auto 1.4 % (0.0-0.5); Lymphocytes Absolute Auto 0.2 10^3/uL (1.2-3.8); Lymphocytes Percent Auto 2.2 % (20.5-60.0); Mean Corpuscular HGB Conc 32.2 g/dL (29.9-35.2); Mean Corpuscular Hemoglobin 30.8 pg (26.7-34.0); Mean Corpuscular Volume 95.6 fL (81.0-99.0); Mean Platelet Volume 9.2 fL (9.5-13.5); Monocytes Absolute Auto 0.4 10^3/uL (0.3-0.8); Monocytes Percent Auto 5.1 % (1.7-12.0); Neutrophils Absolute Auto 7.1 10^3/uL (1.4-6.5); Neutrophils Percent Auto 91.3 % (43.0-75.0); Platelet Count 275 10^3/uL (150-450); Red Blood Count 3.15 10^6/uL (4.20-5.40); Red Cell Distribution Width 19.7 % (11.0-15.0); White Blood Count 7.7 10^3/uL (4.0-11.0)
[2024-07-19 06:59] LABS: Alanine Aminotransferase 26 U/L (14-59); Albumin Globulin Ratio 0.9; Albumin Level 2.4 g/dL (3.4-5.0); Alkaline Phosphatase 52 U/L (46-116); Anion Gap 12.6; Aspartate Amino Transferase 21 U/L (15-37); BUN Creatinine Ratio 20.3; Bilirubin Total 0.3 mg/dL (0.2-1.0); Calcium 8.2 mg/dL (8.5-10.1); Carbon Dioxide 25.6 mmol/L (21.0-32.0); Chloride 102 mmol/L (98-107); Estimated GFR (African America >60 (>=60 mL/min/1.73m^2); Estimated GFR (Non-African Ame >60 (>=60 mL/min/1.73m^2); Globulin 2.6 g/dL; Glucose 117 mg/dL (74-106); Potassium 3.2 mmol/L (3.5-5.1); Sodium 137 mmol/L (136-145)
[2024-07-19] MEDS: IPRATROPIUM/ALBUTEROL SULFATE 3 ML AMPUL.NEB IH ×2 (07:29→11:24)
[2024-07-19] MEDS: SODIUM CHLORIDE 3% INHALATION 15 ML NEB 3 ML IH (07:29)
[2024-07-19] MEDS: ALENDRONATE SODIUM 70 MG TABLET PO (07:54)
[2024-07-19] MEDS: ENOXAPARIN SODIUM 40 MG/0.4 ML SYRINGE SUBQ (09:12)
[2024-07-19] MEDS: GABAPENTIN 300 MG CAPSULE PO (09:13)
[2024-07-19] MEDS: GUAIFENESIN 600 MG TAB.ER.12H 1200 MG PO (09:13)
[2024-07-19] MEDS: OMEPRAZOLE 40 MG CAPSULE.DR PO (09:13)
[2024-07-19] MEDS: MULTIVITAMIN TABLET 1 TAB PO (09:13)
[2024-07-19] MEDS: CALCIUM POLYCARBOPHIL 625 MG TABLET PO (09:13)
[2024-07-19] MEDS: VITAMIN E (DL,TOCOPHERYL ACET) 180 MG (400 IU) CAPSULE PO (09:13)
[2024-07-19] MEDS: METOPROLOL SUCCINATE 100 MG TAB.ER.24H PO (09:13)
[2024-07-19] MEDS: ZINC GLUCONATE 50 MG TABLET PO (09:13)
[2024-07-19] MEDS: ESCITALOPRAM 10 MG TABLET 20 MG PO (09:13)
[2024-07-19] MEDS: AMLODIPINE BESYLATE 5 MG TABLET PO (09:13)
[2024-07-19] MEDS: PROSTAT 15 GM PROTEIN/100 CAL 30 ML LIQUID PACKET PO (09:13)
[2024-07-19] MEDS: MELOXICAM 7.5 MG TABLET PO (09:13)
[2024-07-19] MEDS: LOSARTAN POTASSIUM 50 MG TABLET 100 MG PO (09:13)
[2024-07-19] MEDS: BUDESONIDE 0.5 MG/2 ML AMPULE NEB IH (11:24)
--- NOTE | 2024-07-19 11:29 | P.DS_ITS ---
DS: Providers Provider Date of admission: 07/17/24 11:01 Primary care physician: Mihir Patel DO Consults: 07/16/24 Consult to Dietitian Routine Reason for consultation: weight loss Consult to Lease Out Worker Routine Reason for consult:: Housing/Retirement 07/17/24 11:06 Consult to Pulmonology Routine Consulting Provider: Mihir Patel Reason for consultation: COPD 07/17/24 15:03 Occupational Therapy Eval and Treat Routine Reason for consultation: Weakness 07/18/24 Physical Therapy Eval and Treat Routine Reason for consultation: weakness DS: Diagnosis Discharge Diagnosis (1) Sepsis: Qualifiers: Sepsis acute organ dysfunction status: without acute organ dysfunction Sepsis type: Pneumococcus Qualified Code(s): A40.3 - Sepsis due to Streptococcus pneumoniae (2) Pneumonia: Qualifiers: Laterality: bilateral Lung location: lower lobe of lung Pneumonia type: due to unspecified organism Qualified Code(s): J18.9 - Pneumonia, unspecified organism (3) COPD exacerbation: (4) Acute hypoxic respiratory failure: (5) Mucus plugging of bronchi: (6) Bladder cancer: Qualifiers: Bladder location: unspecified site Qualified Code(s): C67.9 - Malignant neoplasm of bladder, unspecified (7) HTN (hypertension): Qualifiers: Hypertension type: primary hypertension Qualified Code(s): I10 - Essential (primary) hypertension (8) Hyperlipidemia: Qualifiers: Hyperlipidemia type: unspecified Qualified Code(s): E78.5 - Hyperlipidemia, unspecified (9) Severe protein-calorie malnutrition: Plan (1) Sepsis: Qualifiers: Sepsis type: Pneumococcus Sepsis acute organ dysfunction status: without acute organ dysfunction Qualified Code(s): A40.3 - Sepsis due to Streptococcus pneumoniae (2) Pneumonia: Qualifiers: Pneumonia type: due to unspecified organism Laterality: bilateral Lung location: lower lobe of lung Qualified Code(s): J18.9 - Pneumonia, unspecified organism (3) COPD exacerbation: (4) Acute hypoxic respiratory failure: (5) Mucus plugging of bronchi: (6) Bladder cancer: Qualifiers: Bladder location: unspecified site Qualified Code(s): C67.9 - Malignant neoplasm of bladder, unspecified (7) HTN (hypertension): Qualifiers: Hypertension type: primary hypertension Qualified Code(s): I10 - Esse ntial (primary) hypertension (8) Hyperlipidemia: Qualifiers: Hyperlipidemia type: unspecified Qualified Code(s): E78.5 - Hyperlipidemia, unspecified (9) Severe protein-calorie malnutrition: DS: Summary Hospital Course Hospital Course: Patient presented to the emergency with increasing cough and shortness of breath, found to have pneumonia causing acute exacerbation of COPD and sepsis. Patient was treated with IV antibiotics, steroids, or frequent aerosol treatments. Initially hypoxic now she has been able to be weaned off of her supplemental oxygen. She ambulated in the hallway without any further hypoxia. At this point should be discharged to home in improving condition. Medications see list Status at Discharge Overall status at discharge: patient is not back to baseline Time Spent with Patient Time attestation: Total time spent providing and/or coordinating discharge services: Time spent: greater than 30 minutes Exam Constitutional Vital Signs, click to edit/add: Last Vital Signs Temp 97.7 F 07/19/24 07:58 Pulse 116 H 07/19/24 09:59 Resp 22 H 07/19/24 07:58 BP 143/78 H 07/19/24 07:58 Pulse Ox 90 L 07/19/24 10:20 O2 Del Method Room Air 07/19/24 10:20 O2 Flow Rate 1 07/18/24 04:03 Documenting provider has reviewed patient's vital signs: yes Common normals: no apparent distress Chest Common normals: inspection of chest normal Respiratory Common normals: normal respiratory effort; not clear to ascultation bilaterally Auscultation: rhonchi and wheezes Cardio Common normals: regular rate and regular rhythm DS: Data Data Completed and Pending Labs on day of discharge: Labs from last 24 hours 07/19/24 06:18 WBC 7.7 RBC 3.15 L Hgb 9.7 L Hct 30.1 L MCV 95.6 MCH 30.8 MCHC 32.2 RDW 19.7 H Plt Count 275 MPV 9.2 L Neut % (Auto) 91.3 H Lymph % (Auto) 2.2 L [place] % (Auto) 5.1 Eos % (Auto) 0.0 L Baso % (Auto) 0.0 L Neut # (Auto) 7.1 H Lymph # (Auto) 0.2 L [place] # (Auto) 0.4 Eos # (Auto) 0.0 Baso # (Auto) 0.0 Abs Immat Gran (auto) 0.11 H Imm/Tot Granulo (auto) 1.4 H Sodium 137 Potassium 3.2 L Chloride 102 Carbon Dioxide 25.6 Anion Gap 12.6 BUN 14.0 Creatinine 0.69 Est GFR ( Amer) >60 Est GFR (Non-Af Amer) >60 BUN/Creatinine Ratio 20.3 Glucose 117 H Calcium 8.2 L Total Bilirubin 0.3 AST 21 ALT 26 Alkaline Phosphatase 52 Total Protein 5.0 L Albumin 2.4 L Globulin 2.6 Albumin/Globulin Ratio 0.9 Preliminary micro results at discharge 07/16/24 16:06 Blood Culture Result 2 - Preliminary Blood - Right Forearm NO GROWTH AT 36-48 HOURS. FINAL TO FOLLOW. 07/16/24 16:02 Blood Culture Result 1 - Preliminary Blood - Right Antecubital NO GROWTH AT 36-48 HOURS. FINAL TO FOLLOW. Discharge Plan Discharge Disposition: Home, Self-Care Condition: Fair Discharge Medications: New prednisone 10 mg tablet 40 mg PO DAILY Qty: 32 0RF Rx Instructions: 4/day for 3 days, 3/day for 3 days, 2/day for 3 days, 1/day for 3 days, 1/2 /day for 4 days levofloxacin 500 mg tablet 500 mg PO DAILY 7 Days Qty: 7 0RF Continued atorvastatin 40 mg tablet 40 mg PO BEDTIME amlodipine 5 mg tablet 5 mg PO QDAY losartan 100 mg tablet 100 mg PO DAILY meloxicam 7.5 mg tablet 7.5 mg PO DAILY pantoprazole 40 mg tablet,delayed release (DR/EC) 40 mg PO DAILY multivitamin Tablet 1 tab PO DAILY Yupelri 175 mcg/3 mL solution for nebulization 175 mcg inhalation DAILY arformoterol 15 mcg/2 mL solution for nebulization 15 mcg inhalation Q12H budesonide 0.5 mg/2 mL suspension for nebulization 0.5 mg inhalation BID metoprolol succinate 100 mg tablet extended release 24 hr 100 mg PO DAILY Qty: 30 0RF alendronate 70 mg tablet 70 mg PO .Weekly Patient Comments: pt takes it once a week on Saturdays prednisone 5 mg tablet 5 mg PO DAILY escitalopram oxalate 20 mg tablet 20 mg PO DAILY gabapentin 300 mg capsule 300 mg PO BID guaifenesin [Mucus Relief ER] 600 mg tablet extended release 12hr 1,200 mg PO Q12H zinc 50 mg capsule 50 mg PO DAILY psyllium husk [Daily Fiber] 0.4 gram capsule 0.4 g PO DAILY vitamin E 268 mg (400 unit) capsule 180 mg PO DAILY oxybutynin chloride 5 mg tablet 5 mg PO TID PRN (Reason: bladder spasms) Qty: 60 1RF Activity: increase activity as tolerated Diet: advance to your usual diet Print Language: Fijian Patient Instructions: COPD (Chronic Obstructive Pulmonary Disease) (DC) 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 Phone number is [phone]. They should contact within 48 hours of discharge. Forms: Portal Instructions Follow Up Appointments: Follow up with Carolyn Ford in 7-[address] Follow up [address] Patel. Call Sunday for an appointment [phone] Discharge Date/Time: 07/19/24 12:21
--- NOTE | 2024-07-21 13:46 | CM.DCFOLLOWU ---
Person spoke with: Dagmar How are you feeling? Having a bad breathing day with the rain but taking it slow and I have appt with Dr. Patel How is your pain? No pain Did you understand your discharge instructions? Yes Do you have any questions about your discharge instructions? No Were you given any prescriptions at discharge? Yes Were you able to get your prescriptions filled? Yes Do you understand how to take your medications as ordered? Yes Do you have any questions about your follow up appointment and do you plan to keep your follow up appointment? No I see Dr. Patel tomorrow and my PCP in 2 weeks Is there anything else that you would like to discuss? No Questions/Comments/Concerns/Other:
== END 2024-07-19 12:21 | disposition home health service (06) | DRG 871 ==
LOC: ER 18:44 → MS 07-17 06:09
PROVIDERS: Registered Nurse; Admitting Provider Family Medicine; Emergency Provider Emergency Medicine; PCP Internal Medicine; Visit Provider Internal Medicine
DX: A40.3 Sepsis due to Streptococcus pneumoniae (principal); E43 Unspecified severe protein-calorie malnutrition; J18.9 Pneumonia, unspecified organism; J96.01 Acute respiratory failure with hypoxia; R65.20 Severe sepsis without septic shock; J44.0 Chronic obstructive pulmonary disease with (acute) lower respiratory infection; J44.1 Chronic obstructive pulmonary disease with (acute) exacerbation; Z68.1 Body mass index [BMI] 19.9 or less, adult; R64 Cachexia; C67.9 Malignant neoplasm of bladder, unspecified; I10 Essential (primary) hypertension; Z79.60 Long term (current) use of unspecified immunomodulators and immunosuppressants; E78.5 Hyperlipidemia, unspecified; Z86.16 Personal history of COVID-19; F41.9 Anxiety disorder, unspecified; F32.A Depression, unspecified; G25.81 Restless legs syndrome; E88.01 Alpha-1-antitrypsin deficiency; Z90.49 Acquired absence of other specified parts of digestive tract; Z90.711 Acquired absence of uterus with remaining cervical stump; F17.200 Nicotine dependence, unspecified, uncomplicated; Z79.899 Other long term (current) drug therapy
CPT/HCPCS: 36415; 71045; 71275; 74177; 80053; 83605; 83735; 83880; 84484; 85007; 85025; 85027; 85610; 87040; 87804; 87811; 93005; 94640; 94667; 94668; 94761; 96374; 96375; 97161; 97165; 97530; 99285; 99406; G0378; J1100; J1650; J2919; Q9967

== ENCOUNTER 2024-08-20 19:03 | Outpatient (OUT) | payer MEDICARE, SELFPAY ==
[2024-08-20 22:01] LABS: Bilirubin Urine NEGATIVE (NEGATIVE); Blood Urine LARGE (NEGATIVE); Clarity Urine CLEAR (CLEAR); Color Urine YELLOW (YELLOW); Glucose Urine UA NEGATIVE (NEGATIVE); Ketones Urine NEGATIVE (NEGATIVE); Leukocyte Esterase Urine NEGATIVE (NEGATIVE); Nitrite Urine NEGATIVE (NEGATIVE); Protein Urine TRACE mg/dL (NEG/TRACE); Urobilinogen Urine 0.2 EU/dL (0.2-1.0); pH Urine 7.5 (5.0-9.0)
[2024-08-20 22:28] LABS: Urine Microscopic Indicated YES
[2024-08-20 23:26] LABS: Bacteria Urine SMALL #/HPF (NONE SEEN); Mucus Urine NONE SEEN (NONE SEEN); RBC Urine >100 #/HPF (0-2); Squamous Epithelial Cell Urine FEW #/LPF (NONE/RARE)
[2024-08-20 23:27] LABS: Cast Seen? NONE SEEN #/LPF (NONE SEEN); Crystals Seen? None Seen #/HPF (None Seen); Urine Culture Indicated YES
[2024-08-20 23:53] LABS: BOX Test Reference Lab FRMC; BOX Test Sent Out URINE CX
== END 2024-08-20 19:04 | disposition home or self-care (01) ==
DX: C67.8 Malignant neoplasm of overlapping sites of bladder (principal); E43 Unspecified severe protein-calorie malnutrition; J44.9 Chronic obstructive pulmonary disease, unspecified; I10 Essential (primary) hypertension; E78.5 Hyperlipidemia, unspecified; R82.998 Other abnormal findings in urine
CPT/HCPCS: 36415; 81001; 87086